=== PATIENT | male | born 1940 | race Caucasian/White ===

== ENCOUNTER 2016-07-07 13:31 | Emergency (ER) | payer MEDICARE, OTHER ==
[~2016-07-07] VITALS: Ht 193 cm; Wt 108.9 kg
[~2016-07-07 13:31] MED LIST: ACLI400A2 IH; ALBU2.5V5 NEB; ALPR0.25 PO; AMIO200T2 PO; AMLO5TAB2 PO; AMOX1TAB61 PO; ASPI81TA2 PO; ATOR10TA60 PO; BUDE10.2 IH; BUPR150T8 PO; CALC0.25 PO; CLOP75TA27 PO; FERR-26 PO; FLUT16SP2 NS; FORM12CA IH; FURO-68 PO; FURO-69 PO; FURO40TA4 PO; GABA-586 PO; IPRA0.2S5 NEB; IPRA3AMP IH; LEVO750T31 PO; LISI-338 PO; LISI2.5T PO; LORA10TA3 PO; LORA5SOL49 PO; METO-269 PO; METO50TA2 PO; METR500T PO; MULT-246 PO; Nicotine TD; OMEG300C PO; PRED-220 PO; RIVA10TA PO; TADA2.5T PO; TAMS0.4C2 PO; WARF5TAB7 PO; WARF7.5T PO; WARF7.5T6 PO
[2016-07-07] MEDS ORDERED: DIPHTH,PERTUSS(ACELL),TET TOX 0.5 ML DISP.SYRIN. VAX IM ONE (15:00)
[2016-07-07] MEDS ORDERED: LIDOCAINE 1% / SOD BICARB 8.4% 20 ML VIAL. IJ ONE (15:00)
--- NOTE | 2016-07-07 15:32 | RAD ---
PROCEDURE CT head without contrast CT maxillofacial without contrast dated 07/07/2016. HISTORY Pain after fall. TECHNIQUE Contiguous axial imaging of the head was performed from skull base to vertex. No contrast administered. In addition, imaging of the face was performed with coronal and sagittal reconstructions.Exposure: One or more of the following individualized dose reduction techniques were utilized for this exam: 1. Automated exposure control. 2. Adjustment of the mA and/or kV according to patient size. 3. Use of iterative reconstruction technique. COMPARISON None. FINDINGS Ventricles and sulci within normal limits for age. No midline shift or mass effect. Brain parenchyma is of normal attenuation. No hemorrhage or extra-axial collection. Posterior fossa and brainstem unremarkable. No acute calvarial abnormality. Images of the maxillofacial bones show small nondisplaced fracture of the left nasal bone with slight irregularity of the right nasal bone. No displaced fracture. Nasal septum is slightly deviated to the left. The orbital spencer and maxillary spencer are intact. Mandible is intact. Zygomatic arches are intact. Moderate mucosal thickening bilateral ethmoid air cells. Mild mucosal thickening bilateral maxillary sinus. Visualized paranasal sinuses and mastoid air cells are otherwise clear. No significant soft tissue abnormality. IMPRESSION HEAD - No evidence of acute intracranial hemorrhage or mass. IMPRESSION MAXILLOFACIAL: - Probable small nondisplaced fracture of the left nasal bone. - Otherwise no displaced facial fracture. - Mild maxillary and ethmoid sinus mucosal thickening. Electronically signed by: Channing Patel (Jul 07, 2016 15:29:44)
[2016-07-07] MEDS ORDERED: HYDR-971 PO (16:42)
[2016-07-07] MEDS ORDERED: CLIN-44 PO (16:42)
--- NOTE | 2016-07-07 16:43 | PHYS DOC ---
Past Medical History Past Medical History: A-Fib, CHF, COPD, Hypertension, Renal Disease Additional Past Medical Histor: SEASONAL ALLERGIES Past Surgical History: Pacemaker Additional Past Surgical Histo: metal in R. hand finger. 2 stents in left leg. perm pacer. Alcohol Use: None Drug Use: None Adult General Chief Complaint Chief Complaint: LACERATION/AVULSION HPI HPI Patient is a 75 year old male who presents with history of hypertension, COPD, kidney disease, who presents today with facial laceration. Patient states his knees gave out which is not unusual for him and he fell hitting his face on the ground. Patient denies any loss of consciousness. He states he takes Coumadin daily. 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 Review of Systems Review of Systems Constitutional: Denies fever or chills [] Eyes: Denies change in visual acuity, redness, or eye pain [] HENT: Denies nasal congestion or sore throat [] Respiratory: Denies cough or shortness of breath [] Cardiovascular: No additional information not addressed in HPI [] GI: Denies abdominal pain, nausea, vomiting, bloody stools or diarrhea [] : Denies dysuria or hematuria [] Musculoskeletal: Denies back pain or joint pain [] Integument: nose laceration Neurologic: Denies headache, focal weakness or sensory changes [] Endocrine: Denies polyuria or polydipsia [] Current Medications Current Medications Current Medications Medications (Trade) Dose Ordered Sig/Patricia Start Time Stop Time Status Last Admin Dose Admin Diphtheria/ Tetanus/Acell Pertussis (Boostrix) 0.5 ml ONCE ONCE 07/07/16 15:00 07/07/16 15:01 DC 07/07/16 15:22 0.5 ML Lidocaine/Sodium Bicarbonate (Buffered Lidocaine 1%) 20 ml 1X ONCE 07/07/16 15:00 07/07/16 15:01 DC 07/07/16 15:21 20 ML Allergies Allergies Allergies Coded Allergies Type Severity Reaction Last Updated Verified cephalexin Allergy Mild Nausea and Vomiting 10/08/15 Yes Physical Exam Physical Exam Constitutional: Well developed, well nourished, no acute distress, non-toxic appearance. [] HENT: Normocephalic, atraumatic, bilateral external ears normal, oropharynx moist, no oral exudates, nose normal. [] Eyes: PERRLA, EOMI, conjunctiva normal, no discharge. [] Neck: Normal range of motion, no tenderness, supple, no stridor. [] Cardiovascular:Heart rate regular rhythm, no murmur [] Lungs & Thorax: Bilateral breath sounds clear to auscultation [] Abdomen: Bowel sounds normal, soft, no tenderness, no masses, no pulsatile masses. [] Skin: Patient's nasal bridge appears deformed. There is a 4 cm laceration over the nasal bridge, scabbing over some part of the laceration. This is probably the site where the tumor was removed two weeks ago and sewn up that could have opened up when he fell. Back: No tenderness, no CVA tenderness. [] Extremities: No tenderness, no cyanosis, no clubbing, ROM intact, no edema. [] Neurologic: Alert and oriented X 3, normal motor function, normal sensory function, no focal deficits noted. [] Psychologic: Affect normal, judgement normal, mood normal. [] Current Patient Data Vital Signs Vital Signs Date Time Temp Pulse Resp B/P Pulse Ox O2 Delivery O2 Flow Rate FiO2 07/07/16 14:45 98.0 76 18 99/55 95 Room Air 98.0 EKG EKG [] Radiology/Procedures Radiology/Procedures Indication: Nose laceration Procedure: The patient was placed in the appropriate position and anesthesia around the laceration was 1% buffered lidocaine, the laceration was cleaned with the 100 ML of normal saline and Betadine. The laceration was closed with 7 interrupted sutures using 6. 0 Prolene. The wound was left open to air. Total repaired wound length: Approximately 4 cm long Other Items: none The patient tolerated the procedure well Complications: none Course & Med Decision Making Course & Med Decision Making Pertinent Labs and Imaging studies reviewed. (See chart for details) Patient fell down and has nose laceration which was closed as noted in procedures. CT of the head was negative for any acute findings. CT of the maxillofacial was has a for probable nondisplaced fractures of the left nasal bone. Patient was discharged on clindamycin for 10 days. He states he has a plastic surgeon and he is going to follow-up tomorrow morning. He was instructed to apply Neosporin to the area twice a day. His provided return precautions and discharged in stable condition. Discharged with [place] for pain, Given a copy of his CD to take home for the plastic surgeon. Manny Mccartneyimer Manny Disclaimer This electronic medical record was generated, in whole or in part, using a voice recognition dictation system. Departure Departure Impression: Primary Impression: Fall from standing Additional Impressions: Laceration of nose Nasal bone fracture Disposition: 01 HOME, SELF-CARE Condition: STABLE Referrals: CHAPARRO HILLIARD Jr, MD (PCP) Follow up with plastic surgeon as soon as you can Patient Instructions: Facial Laceration, Fall Prevention and Home Safety Additional Instructions: You were seen for nose laceration. Your CT shows you could've broken your left nasal bone as well. We closed the laceration with stitches. Follow-up with your own plastic surgeon as soon as possible. The stitches need to be removed in 3-5 days. Keep the area clean and dry. Apply antibiotic cream to the area. Complete your antibiotics. Come to the emergency room if symptoms worsen. Scripts Clindamycin Hcl 150 Mg Capsule3 Cap PO TID #90 CAP Prov:MAKENZIE COSBY APRN 07/07/16 Hydrocodone/Apap 5-325 ([place] 5-325 Tablet)1 Each Tablet1-2 Tab PO Q4-6HRS #14 TAB Prov:MAKENZIE COSBY APRN 07/07/16 Problem Qualifiers Primary Impression: Fall from standing Encounter type: initial encounter Qualified Code: W19.XXXA - Unspecified fall, initial encounter Additional Impressions: Laceration of nose Encounter type: initial encounter Qualified Code: S01.21XA - Laceration without foreign body of nose, initial encounter Nasal bone fracture Encounter type: initial encounter Fracture type: open Qualified Code: S02.2XXB - Fracture of nasal bones, initial encounter for open fracture MAKENZIE COBSY APRN Jul 07, 2016 16:43
[2016-07-07 16:56] VITALS: BP 109/66
== END 2016-07-07 16:57 | disposition home or self-care (01) ==
LOC: ER 13:31
DX: S02.2XXB Fracture of nasal bones, initial encounter for open fracture (principal); S01.21XA Laceration without foreign body of nose, initial encounter; I10 Essential (primary) hypertension; J44.9 Chronic obstructive pulmonary disease, unspecified; I13.0 Hypertensive heart and chronic kidney disease with heart failure and stage 1 through stage 4 chronic kidney disease, or unspecified chronic kidney disease; I50.9 Heart failure, unspecified; N18.9 Chronic kidney disease, unspecified; I48.91 Unspecified atrial fibrillation; Z88.1 Allergy status to other antibiotic agents; Z79.01 Long term (current) use of anticoagulants; W01.198A Fall on same level from slipping, tripping and stumbling with subsequent striking against other object, initial encounter; Y93.89 Activity, other specified; Y92.89 Other specified places as the place of occurrence of the external cause; Y99.8 Other external cause status
CPT/HCPCS: 12013; 70450; 70486; 90471; 90715; 99284-25

== ENCOUNTER → 2016-07-08 | Outpatient (CLI) | payer MEDICARE, OTHER ==
[2016-07-07 16:56] VITALS: BP 109/66
[~2016-07-08] MED LIST changes: +CLIN-44 PO; +HYDR-971 PO
[2016-07-08 13:10] LABS: HEMATOCRIT 32.3 % (39.0-53.0); HEMOGLOBIN 10.9 g/dL (13.0-17.5)
[2016-07-08 13:23] LABS: ALBUMIN 3.4 g/dL (3.4-5.0); CREATININE 3.1 mg/dL (0.7-1.3); GFR 19.8; PHOSPHORUS 3.5 mg/dL (2.6-4.7); POTASSIUM 5.1 mmol/L (3.5-5.1)
[2016-07-08 13:24] LABS: % SAT IRON 28 % (15-34); IRON,SERUM 74 ug/dL (65-175)
[2016-07-09 14:25] LABS: PTH INTACT 190 pg/mL (15-65)
== END | disposition home or self-care (01) ==
LOC: LAB 12:31
PROVIDERS: ATTEND Internal Medicine Nephrology
DX: N18.3 Chronic kidney disease, stage 3 (moderate) (principal); D63.1 Anemia in chronic kidney disease
CPT/HCPCS: 36415; 80069; 82043; 82570; 82728; 83540; 83550; 83735; 83970; 85014; 85018

== ENCOUNTER 2016-11-13 07:55 | Emergency (ER) | payer MEDICARE, OTHER ==
[~2016-11-13] VITALS: Ht 185.4 cm; Wt 104.3 kg
[~2016-11-13 07:55] MED LIST changes: -WARF7.5T PO; +WARF7.5T48 PO
[2016-11-13] MEDS ORDERED: IV NORMAL SALINE 1000ML BAG 1,000 ML IV ONE (08:15)
--- NOTE | 2016-11-13 08:26 | PHYS DOC ---
Past Medical History Past Medical History: A-Fib, CHF, COPD, Hypertension, Renal Disease Additional Past Medical Histor: SEASONAL ALLERGIES Past Surgical History: Pacemaker Additional Past Surgical Histo: metal in R. hand finger. 2 stents in left leg. perm pacer. Additional Information: quit smoking 2013 Alcohol Use: Rarely Drug Use: None Adult General Chief Complaint Chief Complaint: NAUSEA/VOMITING/DIARRHA HPI HPI Patient is a 76 year old male who presents with 6 days of nausea, vomiting or diarrhea. Patient states his stools are very loose, is having difficulty keeping food down, is tolerating water without difficulty. He states he has no appetite twice a day of eating makes him nauseous. He denies any known fevers, no recent antibiotics. He denies any associated pain or weakness. Patient has a history of chronic kidney disease, it had been improving but patient is concerned she is becoming dehydrated. He's also noted some lesions arms. They' re not pruritic and it popped over the last couple of days. He does take Coumadin. Denies primary care physician earlier this week who thought patient had a viral gastroenteritis versus food poisoning. He's not attempted any symptom controlling medications. ECP Dr. Arnie Hilliard, table saw operator Dr. Harper, machine cementer Dr. Harvey, office secretary Dr. Virk Review of Systems Review of Systems Constitutional: Denies fever or chills [] Eyes: Denies change in visual acuity, redness, or eye pain [] HENT: Denies nasal congestion or sore throat [] Respiratory: Denies cough or shortness of breath [] Cardiovascular: denies cp GI: per hpi : Denies dysuria or hematuria [] Musculoskeletal: Denies back pain or joint pain [] Integument: Denies rash or skin lesions [] Neurologic: Denies headache, focal weakness or sensory changes [] Endocrine: Denies polyuria or polydipsia [ Current Medications Current Medications Current Medications Medications (Trade) Dose Ordered Sig/Patricia Start Time Stop Time Status Last Admin Dose Admin Ondansetron HCl (Zofran) 4 mg 1X ONCE 11/13/16 08:30 11/13/16 08:32 DC 11/13/16 08:42 4 MG Phytonadione (Mephyton) 5 mg 1X ONCE 11/13/16 11:15 11/13/16 11:16 DC 11/13/16 11:23 5 MG Sodium Chloride 1,000 ml @ 1,000 mls/hr 1X ONCE 11/13/16 08:15 11/13/16 09:14 DC 11/13/16 08:28 1,000 MLS/HR Allergies Allergies Allergies Coded Allergies Type Severity Reaction Last Updated Verified cephalexin Allergy Mild Nausea and Vomiting 10/08/15 Yes Physical Exam Physical Exam Constitutional: Well developed, well nourished, no acute distress, non-toxic appearance. [] HENT: Normocephalic, atraumatic, bilateral external ears normal, oropharynx slightly dry, no oral exudates, nose normal. [] Eyes: PERRLA, EOMI, conjunctiva normal, no discharge. [] Neck: Normal range of motion, no tenderness, supple, no stridor. [] Cardiovascular:Heart rate regular rhythm, no murmur [] Lungs & Thorax: Bilateral breath sounds clear to auscultation [] Abdomen: Bowel sounds normal, soft, no tenderness, no masses, no pulsatile masses. [] Skin: Warm, dry, nonblanching circular erythematous lesions on bilateral proximal forearms, various sizes, maccular, 1 area with a central opening where scabbed over. nontender, not involving palms or soles. Back: No tenderness, no CVA tenderness. [] Extremities: No tenderness, no cyanosis, no clubbing, ROM intact, no edema. [] Neurologic: Alert and oriented X 3, normal motor function, normal sensory function, no focal deficits noted. [] Current Patient Data Vital Signs Vital Signs Date Time Temp Pulse Resp B/P (MAP) Pulse Ox O2 Delivery O2 Flow Rate FiO2 11/13/16 11:20 68 20 120/60 (80) 95 Room Air 11/13/16 08:46 2.0 11/13/16 08:00 97.6 97.6 Lab Values Laboratory Tests Test 11/13/16 08:10 11/13/16 08:46 11/13/16 09:33 White Blood Count 7.2 x10^3/uL (4.0-11.0) Red Blood Count 3.68 x10^6/uL (4.30-5.70) L Hemoglobin 11.6 g/dL (13.0-17.5) L Hematocrit 34.6 % (39.0-53.0) L Mean Corpuscular Volume 94 fL (79-100) Mean Corpuscular Hemoglobin 32 pg (25-35) Mean Corpuscular Hemoglobin Concent 34 g/dL (31-37) Red Cell Distribution Width 14.4 % (11.5-14.5) Platelet Count 138 x10^3/uL (140-400) L Neutrophils (%) (Auto) 69 % (31-73) Lymphocytes (%) (Auto) 18 % (24-48) L Monocytes (%) (Auto) 11 % (0-9) H Eosinophils (%) (Auto) 1 % (0-3) Basophils (%) (Auto) 1 % (0-3) Neutrophils # (Auto) 5.0 x10^3uL (1.8-7.7) Lymphocytes # (Auto) 1.3 x10^3/uL (1.0-4.8) Monocytes # (Auto) 0.8 x10^3/uL (0.0-1.1) Eosinophils # (Auto) 0.1 x10^3/uL (0.0-0.7) Basophils # (Auto) 0.1 x10^3/uL (0.0-0.2) Prothrombin Time 69.1 SEC (11.7-14.0) H Prothrombin Time INR 9.1 (0.8-1.1) *H Total Bilirubin 0.5 mg/dL (0.2-1.0) Direct Bilirubin 0.1 mg/dL (0.0-0.2) Aspartate Amino Transferase (AST) 25 U/L (15-37) Alanine Aminotransferase (ALT) 32 U/L (16-63) Alkaline Phosphatase 75 U/L (46-116) Total Protein 7.0 g/dL (6.4-8.2) Albumin 3.4 g/dL (3.4-5.0) POC Hemoglobin 11.9 g/dL (14-18) L POC Hematocrit 35 % (37-52) L POC Sodium 139 mmol/L (135-145) POC Potassium 5.0 mmol/L (3.5-5.0) POC Chloride 110 mmol/L (98-110) POC Total CO2 18 mmol/L (23-32) L Anion Gap 17 mmol/L (6-14) H POC Blood Urea Nitrogen 41 mg/dL (8-26) H POC Creatinine 2.9 mg/dL (0.5-1.4) H Glucose Level 105 mg/dL (70-99) H POC Ionized Calcium (Glenn) 1.45 mmol/L (1.13-1.32) H Urine Collection Type Void Urine Color Yellow Urine Clarity Clear Urine pH 5.0 Urine Specific [place] 1.010 Urine Protein Negative mg/dL (NEG-TRACE) Urine Glucose (UA) Negative mg/dL (NEG) Urine Ketones (Stick) Negative mg/dL (NEG) Urine Blood Negative (NEG) Urine Nitrite Negative (NEG) Urine Bilirubin Negative (NEG) Urine Urobilinogen Dipstick 0.2 mg/dL (0.2 mg/dL) Urine Leukocyte Esterase Negative (NEG) Urine RBC 0 /HPF (0-2) Urine WBC 0 /HPF (0-4) Urine Squamous Epithelial Cells Occ /LPF Urine Bacteria 0 /HPF (0-FEW) Urine Hyaline Casts Few /HPF Urine Mucus Slight /LPF Laboratory Tests 11/13/16 08:10 Laboratory Tests 11/13/16 08:46 EKG EKG 77 bpm, sinus, leftward axis, normal intervals, no ST elevation, ST depression with T-wave inversions in V3 through V6, improved from previous EKG on May 24, 2016. Interpreted by me Radiology/Procedures Radiology/Procedures [] CT abdomen and pelvis read by radiology showed mild dilatated and the small and large bowel loops without transition, questionable ileus, obstruction less likely. There is cholelithiasis. Sigmoid diverticulosis without inflammation. This was a handwritten read when infant was down. Course & Med Decision Making Course & Med Decision Making Pertinent Labs and Imaging studies reviewed. (See chart for details) Labs ordered, EKG performed. IV established an IV fluids given. Patient feeling better after IV fluids. He also received Zofran. I found at that the patient actually tolerated his breakfast this morning without vomiting. Patient is preferring to go home. His INR came back 9+, 5 mg by mouth vitamin K was given, I talked with patient's PCP Dr. Hilliard. He is agreeable with the patient to go home and will follow up on his INR on Thursday, patient is not to take his Coumadin. Precautions given, discharged with prescription for Zofran. Manny Disclaimer Dragon Disclaimer This electronic medical record was generated, in whole or in part, using a voice recognition dictation system. Departure Departure Impression: Primary Impression: Viral gastroenteritis Additional Impression: Supratherapeutic INR Disposition: HOME, SELF-CARE Condition: STABLE Referrals: CHAPARRO HILLIARD Jr, MD (PCP) Scripts Ondansetron (ZOFRAN ODT) 4 Mg Tab.rapdis 1 TAB SL Q8HRS Y for NAUSEA, #10 TAB Prov: JANUARY MARIE MD 11/13/16 Problem Qualifiers JANUARY MARIE MD November 13, 2016 08:26
[2016-11-13] MEDS ORDERED: ONDANSETRON PF 4 MG/2 ML VIAL. IV ONE (08:30)
[2016-11-13 08:53] LABS: ALBUMIN 3.4 g/dL (3.4-5.0); DIRECT BILIRUBIN 0.1 mg/dL (0.0-0.2); PROTHROMBIN TIME PATIENT 69.1 SEC (11.7-14.0); TOTAL BILIRUBIN 0.5 mg/dL (0.2-1.0)
--- NOTE | 2016-11-13 08:56 | ACF ---
Admission Forms Criteria VOMITING Clinical Indications for Admission to Inpatient Care ( Place 'X' for any and all applicable criteria): Admission is indicated for 1 or more of the following(1)(2)(3): [ ]I. Complete or partial gastrointestinal obstruction [ ]II. Vomiting due to significant metabolic derangement (eg, severe hypercalcemia, diabetic ketoacidosis) [ ]III. Other cause of vomiting requiring hospitalization (eg, poisoning, increased intracranial pressure) [X]IV. Inpatient admission required rather than observation care because of 1 or more of the following [ ]i) Hemodynamic instability [ ]ii) Vomiting that is severe or persistent indicated by 1 or more of the following 1) Numerous episodes of vomiting in past 24hours (eg, every 1 to 2 hours) 2) Suggests severe underlying cause or complication (eg , projectile, feculent, bilious, coffee ground, bloody) 3) Appropriate antiemetic treatment (eg, repeated oral or parenteral dosing) does not sufficiently reduce vomiting within 12 to 24 hours of treatment 4) Treatment regimen necessary to adequately control vomiting requires inpatient level of care (eg, not immediately available in outpatient setting) [ ]iii) Severe electrolyte abnormalities requiring inpatient care [ ]iv) Severe pain requiring acute inpatient management( Continuous or frequent (eg, every 2 to 4 hours) parental analgesics or analgesic regimen that can only be performed or initiated in inpatient setting) [ ]v) High fever or infection requiring inpatient admission as indicated by 1 or more of the following(7)(8): [ ]1) Appropriate outpatient or observation care antimicrobial treatment unavailable, not effective, or not feasible [ ]2) Documented bacteremia [ ]3) Temp >104.9 degrees F (40.5 degrees C) (oral) [ ]4) Temp >103.1 degrees F (39.5 C) (oral) or <96.8 degrees F (36 C) (rectal) that does not respond to all emergency treatment measures [X]vi) Acute renal failure [ ]vii) IV fluid required rather than oral rehydration to replace significant on going losses (greater than 3 L/m2 per day) [ ]viii) Parenteral nutrition regimen that must be implemented on inpatient basis [ ]ix) Other condition, treatment or monitoring requiring inpatient admission Extended stay beyond goal length of stay may be needed for(1)(4): [ ]a) Severe vomiting [ ]b) Persistent vomiting, vital sign changes, severe electrolyte imbalance , or diagnosed cause of vomiting that requires continued hospitalization (eg, gastrointestinal obstruction , increased intracranial pressure) [ ]c) Surgery to treat identified causes of vomiting (eg, bowel obstruction , intracranial process) [ ]d) Comorbid illness that requires inpatient care (eg, acute heart failure , renal failure) [ ]e) Need for inpatient endoscopy The original [facility] content created by [employer] has been revised. The portions of the content which have been revised are identified through the use of italic text or in bold, and [facility] has neither reviewed nor approved the modified material. All other unmodified content is copyright [employer]. Please see references footnoted in the original [facility] edition 2016 Admission Criteria Met?: Yes AMILCAR DARBY November 13, 2016 08:56
[2016-11-13] MEDS ORDERED: FURO20TA3 PO (08:57)
[2016-11-13] MEDS ORDERED: VITA150T PO (08:57)
[2016-11-13] MEDS ORDERED: CHOL2000 PO (08:57)
[2016-11-13] MEDS ORDERED: METO25TA9 PO (08:57)
[2016-11-13] MEDS ORDERED: ASCO500T3 PO (08:57)
[2016-11-13 09:03] LABS: BASO # 0.1 x10^3/uL (0.0-0.2); BASO % 1 % (0-3); EOS % 1 % (0-3); HEMATOCRIT 34.6 % (39.0-53.0); HEMOGLOBIN 11.6 g/dL (13.0-17.5); LYMPH # 1.3 x10^3/uL (1.0-4.8); LYMPH % 18 % (24-48); MEAN CORPUSCULAR HEMOGLOBIN 32 pg (25-35); MEAN CORPUSCULAR HGB CONC 34 g/dL (31-37); MEAN CORPUSCULAR VOLUME 94 fL (79-100); MONO % 11 % (0-9); NEUT % 69 % (31-73); PLATELET COUNT 138 x10^3/uL (140-400); RED BLOOD COUNT 3.68 x10^6/uL (4.30-5.70); RED CELL DISTRIBUTION WIDTH 14.4 % (11.5-14.5); WHITE BLOOD COUNT 7.2 x10^3/uL (4.0-11.0)
[2016-11-13 09:26] LABS: INR 9.1 (0.8-1.1)
[2016-11-13 10:06] LABS: BILIRUBIN,URINE NEGATIVE (NEG); GLUCOSE,URINE NEGATIVE (NEG); NITRITE,URINE NEGATIVE (NEG); PROTEIN,URINE NEGATIVE (NEG-TRACE); UROBILINOGEN,URINE 0.2 mg/dL (0.2 mg/dL)
--- NOTE | 2016-11-13 10:21 | EKG ---
[facility] [address] [place] [address] Test Date: 2016-11-13 Test Time: 08:18:29 Pat Name: JOSEP SIMS Department: Room: Gender: M Master Ship: : 1940 Requested By: JANUARY MARIE Order Number: [id number] Reading MD: Isac Muniz Measurements Intervals [place] Rate: 77 P: -61 MS: 158 QRS: -39 QRSD: 108 T: -41 QT: 378 QTc: 430 Interpretive Statements SINUS RHYTHM ABNORMAL LEFT AXIS DEVIATION LEFT ANTERIOR FASCICULAR BLOCK LVH WITH REPOLARIZATION ABNORMALITY Electronically Signed On 11-17-2016 9:30:17 CDT by Isac Muniz
[2016-11-13 10:38] LABS: BACTERIA,URINE 0 /HPF (0-FEW); RBC,URINE 0 /HPF (0-2); SQUAMOUS EPITHELIAL CELL,UR OCC /LPF; WBC,URINE 0 /HPF (0-4)
[2016-11-13] MEDS ORDERED: PHYTONADIONE (VIT K1) 5 MG TABLET PO ONE (11:15)
[2016-11-13] MEDS ORDERED: ONDA4TAB10 SL (11:19)
[2016-11-13 11:20] VITALS: BP 120/60
--- NOTE | 2016-11-13 13:11 | RAD ---
Gerardo Quintero, 11/13/16. Exam performed: CT abdomen pelvis without contrast. History: Weakness, vomiting and weight loss. Date of service: 11/13/16. Comparison: CT abdomen pelvis from 10/07/15. Technique: Contiguous helical acquisitions are obtained through the abdomen and pelvis without IV contrast. Sagittal and coronal reformatted images are obtained and reviewed. Findings: Cholelithiasis. Mild gaseous prominence of small bowel loops and colon up to the rectum. No definite transition is seen. Visualized appendix is normal. No inflammatory changes in the right lower quadrant. Lung bases are essentially clear. Linear scarring in the anterior left lung base. Trace bilateral effusions or pleural thickening. Lack of IV contrast limits evaluation of abdominal viscera, however the liver, spleen and pancreas appear normal. Both adrenal glands and bilateral kidneys are normal in size. Right parapelvic cyst versus extrarenal pelvis. No hydronephrosis. Left renal cyst. Atheromatous aortic calcification without aneurysm. No retroperitoneal or mesenteric lymphadenopathy seen. No free fluid. Urinary bladder is partially decompressed. Prostatomegaly. Sigmoid diverticulosis without acute diverticulitis. No free or focal fluid collections. Interrogation of bone windows demonstrates mild spondylotic changes. Degenerative disc disease at T12-L1 and L5-S1. Impression: 1. Mild predominantly gaseous dilation of the small and large bowel loops without a definite transition zone. The findings are probably related to ileus pattern. Bowel obstruction is considered less likely, however close clinical and radiographic follow-up exams may be obtained to ensure interval resolution. 2. Cholelithiasis. 3. Sigmoid diverticulosis without acute diverticulitis. 4. Ectatic atheromatous abdominal aorta without aneurysm. PQRS Compliance Statement: One or more of the following individualized dose reduction techniques were utilized for this examination: 1. Automated exposure control 2. Adjustment of the mA and/or kV according to patient size 3. Use of iterative reconstruction technique [employer]
== END 2016-11-13 11:50 | disposition home or self-care (01) ==
LOC: ER 07:55
DX: A08.4 Viral intestinal infection, unspecified (principal); R79.1 Abnormal coagulation profile; I13.0 Hypertensive heart and chronic kidney disease with heart failure and stage 1 through stage 4 chronic kidney disease, or unspecified chronic kidney disease; I50.9 Heart failure, unspecified; N18.9 Chronic kidney disease, unspecified; J44.9 Chronic obstructive pulmonary disease, unspecified; I48.91 Unspecified atrial fibrillation; Z95.0 Presence of cardiac pacemaker; Z87.891 Personal history of nicotine dependence; Z88.1 Allergy status to other antibiotic agents
CPT/HCPCS: 36415; 74176; 80047; 80076; 81001; 85027; 85610; 93005; 96361; 96374; 99285; J2405; J7030

== ENCOUNTER 2017-08-12 16:26 | Emergency (ER) | payer MEDICARE, OTHER ==
[2017-08-12 17:36] LABS: BASO # 0.1 x10^3/uL (0.0-0.2); BASO % 1 % (0-3); EOS % 1 % (0-3); HEMATOCRIT 36.3 % (39.0-53.0); HEMOGLOBIN 11.8 g/dL (13.0-17.5); LYMPH # 0.9 x10^3/uL (1.0-4.8); LYMPH % 14 % (24-48); MEAN CORPUSCULAR HEMOGLOBIN 31 pg (25-35); MEAN CORPUSCULAR HGB CONC 33 g/dL (31-37); MEAN CORPUSCULAR VOLUME 95 fL (79-100); MONO # 1.4 x10^3/uL (0.0-1.1); MONO % 23 % (0-9); NEUT # 3.6 x10^3uL (1.8-7.7); NEUT % 61 % (31-73); PLATELET COUNT 103 x10^3/uL (140-400); RED CELL DISTRIBUTION WIDTH 14.7 % (11.5-14.5); WHITE BLOOD COUNT 5.9 x10^3/uL (4.0-11.0)
[2017-08-12 17:45] LABS: INR 2.2 (0.8-1.1); PROTHROMBIN TIME PATIENT 22.9 SEC (11.7-14.0)
[2017-08-12 17:47] LABS: ANION GAP 7 (6-14); BLOOD UREA NITROGEN 34 mg/dL (8-26); BUN/CREATININE RATIO 15 (6-20); CALCIUM 10.2 mg/dL (8.5-10.1); CARBON DIOXIDE 28 mmol/L (21-32); CHLORIDE 104 mmol/L (98-107); CREATININE 2.3 mg/dL (0.7-1.3); GFR 27.9; GLUCOSE 128 mg/dL (70-99); POTASSIUM 4.5 mmol/L (3.5-5.1); SODIUM 139 mmol/L (136-145)
[2017-08-12 17:50] LABS: ADD MAN DIFF? YES
[2017-08-12 17:52] LABS: ALBUMIN 3.2 g/dL (3.4-5.0); ALBUMIN/GLOBULIN RATIO 0.9 (1.0-1.7); ALK PHOS 70 U/L (46-116); ALT (SGPT) 33 U/L (16-63); AST (SGOT) 30 U/L (15-37); LIPASE 127 U/L (73-393); TOTAL PROTEIN 6.6 g/dL (6.4-8.2)
[2017-08-12 17:56] LABS: % BANDS 2 % (0-9); % EOS 2 % (0-5); % LYMPHS 16 % (24-48); % MONOS 20 % (0-10); % SEGS 60 % (35-66)
[2017-08-12 17:59] LABS: PLT ESTIMATE DECREASED (ADEQUATE); POLYCHROMASIA SLIGHT
[2017-08-12 18:00] LABS: NT-PRO BNP 2980 pg/mL (0-449); TROPONINI 0.246 ng/mL (0.000-0.055)
[2017-08-12 18:00] LABS: CKMB MASS 1.4 ng/mL (0.0-3.6)
[2017-08-12 18:01] LABS: CREATINE KINASE 62 U/L (39-308)
== END 2017-08-12 19:24 | disposition home or self-care (01) ==
LOC: ER 16:26
DX: R14.0 Abdominal distension (gaseous) (principal); R11.0 Nausea; J44.9 Chronic obstructive pulmonary disease, unspecified; I48.91 Unspecified atrial fibrillation; I13.0 Hypertensive heart and chronic kidney disease with heart failure and stage 1 through stage 4 chronic kidney disease, or unspecified chronic kidney disease; N18.9 Chronic kidney disease, unspecified; I50.9 Heart failure, unspecified; Z95.0 Presence of cardiac pacemaker; Z88.1 Allergy status to other antibiotic agents
CPT/HCPCS: 36415; 71045; 80053; 82553; 83690; 83880; 84484; 85007; 85025; 85610; 93005; 99285-25

== ENCOUNTER → 2017-12-02 | Outpatient (CLI) | payer MEDICARE, OTHER | END | disposition home or self-care (01) | LOC: NM 09:50 | DX: E83.52 Hypercalcemia (principal); I13.0 Hypertensive heart and chronic kidney disease with heart failure and stage 1 through stage 4 chronic kidney disease, or unspecified chronic kidney disease; I50.22 Chronic systolic (congestive) heart failure; N18.4 Chronic kidney disease, stage 4 (severe) | CPT/HCPCS: 78070; 96374; A9500 ==

== ENCOUNTER 2017-12-04 11:12 | Inpatient (IN) | payer MEDICARE, OTHER ==
[2017-12-04] MEDS: MORPHINE SULFATE 4 MG/ML DISP.SYRIN. IV (11:43)
[2017-12-04] MEDS: IOHEXOL 300 MG/ML 100ML VIAL. IV (11:45)
[2017-12-04] MEDS ORDERED: CONTRAST GIVEN. MC (12:00)
[2017-12-04] MEDS: ONDANSETRON PF 4 MG/2 ML VIAL. IV (12:04)
[2017-12-04] MEDS: PANTOPRAZOLE IV PUSH 40 MG VIAL. IVP (12:13)
[2017-12-04] MEDS: DICYCLOMINE HCL 10 MG CAPSULE PO (12:15)
[2017-12-04 12:27] LABS: BASO % 0 % (0-3); EOS % 0 % (0-3); HEMATOCRIT 34.3 % (39.0-53.0); HEMOGLOBIN 11.3 g/dL (13.0-17.5); LYMPH # 0.4 x10^3/uL (1.0-4.8); LYMPH % 6 % (24-48); MEAN CORPUSCULAR HEMOGLOBIN 32 pg (25-35); MEAN CORPUSCULAR HGB CONC 33 g/dL (31-37); MEAN CORPUSCULAR VOLUME 96 fL (79-100); MONO # 0.1 x10^3/uL (0.0-1.1); MONO % 2 % (0-9); NEUT # 5.9 x10^3uL (1.8-7.7); NEUT % 92 % (31-73); PLATELET COUNT 128 x10^3/uL (140-400); RED BLOOD COUNT 3.57 x10^6/uL (4.30-5.70); RED CELL DISTRIBUTION WIDTH 14.7 % (11.5-14.5); WHITE BLOOD COUNT 6.4 x10^3/uL (4.0-11.0)
[2017-12-04 12:29] LABS: ADD MAN DIFF? YES
[2017-12-04 12:32] LABS: INR 3.5 (0.8-1.1)
[2017-12-04 12:33] LABS: ANION GAP 7 (6-14); BLOOD UREA NITROGEN 33 mg/dL (8-26); BUN/CREATININE RATIO 17 (6-20); CALCIUM 9.8 mg/dL (8.5-10.1); CARBON DIOXIDE 27 mmol/L (21-32); CHLORIDE 107 mmol/L (98-107); CREATININE 1.9 mg/dL (0.7-1.3); GFR 34.6; GLUCOSE 147 mg/dL (70-99); SODIUM 141 mmol/L (136-145)
[2017-12-04] MEDS: IPRATRPIUM/ALBUTEROL 0.5/2.5MG 3 ML NEBU. NEB (12:36)
[2017-12-04 12:38] LABS: ALBUMIN 3.5 g/dL (3.4-5.0); ALBUMIN/GLOBULIN RATIO 1.2 (1.0-1.7); ALK PHOS 157 U/L (46-116); ALT (SGPT) 168 U/L (16-63); AST (SGOT) 277 U/L (15-37); LIPASE 131 U/L (73-393); MAGNESIUM 1.2 mg/dL (1.8-2.4); TOTAL BILIRUBIN 1.5 mg/dL (0.2-1.0); TOTAL PROTEIN 6.4 g/dL (6.4-8.2)
[2017-12-04 12:46] LABS: POTASSIUM 5.4 mmol/L (3.5-5.1)
[2017-12-04 12:49] LABS: NT-PRO BNP 2883 pg/mL (0-449); TROPONINI 0.099 ng/mL (0.000-0.055)
[2017-12-04 12:49] LABS: CKMB INDEX 2.4 % (0-4); CKMB MASS 3.1 ng/mL (0.0-3.6); CREATINE KINASE 127 U/L (39-308)
[2017-12-04 13:21] LABS: % ATYL 1 % (0-0); % BANDS 8 % (0-9); % LYMPHS 8 % (24-48); % MONOS 1 % (0-10); % SEGS 82 % (35-66)
[2017-12-04 13:22] LABS: PLT ESTIMATE DECREASED (ADEQUATE)
[2017-12-04] MEDS ORDERED: levOFLOXacin PER PHARMACY. MC (13:45)
[2017-12-04] MEDS ORDERED: MORPHINE SULFATE 4 MG/ML DISP.SYRIN. IV (13:45)
[2017-12-04 13:52] LABS: PROCALCITONIN 0.11 ng/mL (0.00-0.10)
[2017-12-04] MEDS: IV NORMAL SALINE 1000ML BAG 1,000 ML IV (14:16)
[2017-12-04] MEDS: CALCIUM GLUCONATE 1,000 MG in IV NORMAL SALINE 100ML 100 ML IV (14:21)
[2017-12-04 14:26] LABS: BILIRUBIN,URINE NEGATIVE (NEG); CLARITY,URINE CLEAR; COLOR,URINE YELLOW; GLUCOSE,URINE NEGATIVE (NEG); NITRITE,URINE NEGATIVE (NEG); PH,URINE 5.5; PROTEIN,URINE NEGATIVE (NEG-TRACE)
[2017-12-04 14:36] LABS: BARBITURATES NEG (NEG); BENZODIAZEPINES POS (NEG); CANNABINOIDS NEG (NEG); COCAINE NEG (NEG); METHADONE NEG (NEG); OPIATES POS (NEG); PHENCYCLIDINE NEG (NEG)
[2017-12-04 14:42] LABS: BACTERIA,URINE 0 /HPF (0-FEW); HYALINE CASTS, URINE FEW /HPF; RBC,URINE 0 /HPF (0-2); WBC,URINE 0 /HPF (0-4)
[2017-12-04 14:44] LABS: AMPHETAMINE/METHAMPHETAMINE NEG (NEG); ETHANOL, URINE NEG (NEG)
[2017-12-04 15:47] LABS: LACTIC ACID 1.3 mmol/L (0.4-2.0)
[2017-12-05 02:15] LABS: TROPONINI 0.099 ng/mL (0.000-0.055)
[2017-12-05] MEDS: IV NORMAL SALINE 1000ML BAG 1,000 ML IV ×4 (03:50→23:00)
[2017-12-05 04:58] LABS: ADD MAN DIFF? NO
[2017-12-05 05:18] LABS: BASO % 0 % (0-3); EOS % 0 % (0-3); HEMATOCRIT 29.7 % (39.0-53.0); HEMOGLOBIN 9.7 g/dL (13.0-17.5); LYMPH # 0.4 x10^3/uL (1.0-4.8); LYMPH % 2 % (24-48); MEAN CORPUSCULAR HEMOGLOBIN 32 pg (25-35); MEAN CORPUSCULAR HGB CONC 33 g/dL (31-37); MEAN CORPUSCULAR VOLUME 97 fL (79-100); MONO # 1.2 x10^3/uL (0.0-1.1); MONO % 6 % (0-9); NEUT % 92 % (31-73); PLATELET COUNT 107 x10^3/uL (140-400); RED BLOOD COUNT 3.06 x10^6/uL (4.30-5.70); RED CELL DISTRIBUTION WIDTH 14.8 % (11.5-14.5); WHITE BLOOD COUNT 19.6 x10^3/uL (4.0-11.0)
[2017-12-05 05:28] LABS: ANION GAP 4 (6-14); BLOOD UREA NITROGEN 38 mg/dL (8-26); CALCIUM 9.4 mg/dL (8.5-10.1); CARBON DIOXIDE 28 mmol/L (21-32); CHLORIDE 108 mmol/L (98-107); CREATININE 2.1 mg/dL (0.7-1.3); GFR 30.9; GLUCOSE 100 mg/dL (70-99); POTASSIUM 5.7 mmol/L (3.5-5.1); SODIUM 140 mmol/L (136-145)
[2017-12-05 06:59] LABS: TROPONINI 0.093 ng/mL (0.000-0.055)
[2017-12-05] MEDS: IPRATRPIUM/ALBUTEROL 0.5/2.5MG 3 ML NEBU. NEB ×4 (09:05→19:46)
[2017-12-05 11:40] LABS: INR 4.1 (0.8-1.1); PROTHROMBIN TIME PATIENT 38.8 SEC (11.7-14.0)
[2017-12-05] MEDS: AMIODARONE HCL 200 MG TABLET. PO (11:41)
[2017-12-05] MEDS: FLUTICASONE 50MCG/NASAL SPRAY 16GM BOTTLE. NS ×2 (11:42→21:40)
[2017-12-05] MEDS: SODIUM POLYSTYRENE SULFONATE 15 GM/60 ML ORAL.SUSP. PO (14:00)
[2017-12-05] MEDS: VANCOMYCIN 2 GM in IV 1/2 NORMAL SALINE 500 ML IV (17:00)
[2017-12-05] MEDS: PIPERACILLIN/TAZOBACTAM 3.375 GM in IV NORMAL SALINE 50ML 50 ML IV (17:00)
[2017-12-05 17:29] LABS: ANION GAP 5 (6-14); BLOOD UREA NITROGEN 41 mg/dL (8-26); CALCIUM 10.1 mg/dL (8.5-10.1); CARBON DIOXIDE 27 mmol/L (21-32); CHLORIDE 108 mmol/L (98-107); CREATININE 1.9 mg/dL (0.7-1.3); GFR 34.6; GLUCOSE 113 mg/dL (70-99); POTASSIUM 4.6 mmol/L (3.5-5.1); SODIUM 140 mmol/L (136-145)
[2017-12-05] MEDS: VANCOMYCIN PER PHARMACY MC (17:45)
[2017-12-05] MEDS: METOPROLOL SUCC 24HR ER 25 MG TAB.ER.24H. PO (18:00)
[2017-12-05] MEDS ORDERED: PIP/TAZO PER PHARMACY MC (21:00)
[2017-12-05] MEDS: LACTOBACILLUS RHAMNOSUS GG 1 CAPSULE. PO (21:39)
[2017-12-05] MEDS: ATORVASTATIN CALCIUM 10 MG TABLET. PO (21:40)
[2017-12-05] MEDS: TAMSULOSIN 0.4 MG CAP.ER.24H. PO (21:40)
[2017-12-05] MEDS: ALPRAZolam 1 MG TABLET PO (23:03)
[2017-12-06] MEDS: PIPERACILLIN/TAZOBACTAM 3.375 GM in IV NORMAL SALINE 50ML 50 ML IV ×4 (00:34→17:40)
[2017-12-06 04:53] LABS: ADD MAN DIFF? NO
[2017-12-06 05:15] LABS: BASO % 0 % (0-3); EOS # 0.1 x10^3/uL (0.0-0.7); EOS % 1 % (0-3); HEMATOCRIT 29.6 % (39.0-53.0); LYMPH # 0.4 x10^3/uL (1.0-4.8); LYMPH % 5 % (24-48); MEAN CORPUSCULAR HEMOGLOBIN 33 pg (25-35); MEAN CORPUSCULAR HGB CONC 34 g/dL (31-37); MEAN CORPUSCULAR VOLUME 97 fL (79-100); MONO # 0.9 x10^3/uL (0.0-1.1); MONO % 10 % (0-9); NEUT # 7.8 x10^3uL (1.8-7.7); NEUT % 85 % (31-73); PLATELET COUNT 86 x10^3/uL (140-400); RED BLOOD COUNT 3.05 x10^6/uL (4.30-5.70); RED CELL DISTRIBUTION WIDTH 15.1 % (11.5-14.5); WHITE BLOOD COUNT 9.2 x10^3/uL (4.0-11.0)
[2017-12-06 05:42] LABS: PROTHROMBIN TIME PATIENT 48.2 SEC (11.7-14.0)
[2017-12-06 05:47] LABS: INR 5.4 (0.8-1.1)
[2017-12-06 07:11] LABS: ANION GAP 9 (6-14); BLOOD UREA NITROGEN 36 mg/dL (8-26); CALCIUM 9.3 mg/dL (8.5-10.1); CARBON DIOXIDE 23 mmol/L (21-32); CHLORIDE 108 mmol/L (98-107); CREATININE 1.8 mg/dL (0.7-1.3); GFR 36.9; GLUCOSE 101 mg/dL (70-99); POTASSIUM 4.3 mmol/L (3.5-5.1); SODIUM 140 mmol/L (136-145)
[2017-12-06] MEDS: IPRATRPIUM/ALBUTEROL 0.5/2.5MG 3 ML NEBU. NEB ×4 (07:37→19:56)
[2017-12-06] MEDS: FLUTICASONE 50MCG/NASAL SPRAY 16GM BOTTLE. NS ×2 (08:18→21:37)
[2017-12-06] MEDS: PHYTONADIONE 10 MG/ML ORAL SOLUTION. PO (08:18)
[2017-12-06] MEDS: ALPRAZolam 1 MG TABLET PO ×2 (08:19→21:37)
[2017-12-06] MEDS: LACTOBACILLUS RHAMNOSUS GG 1 CAPSULE. PO ×2 (08:19→21:37)
[2017-12-06] MEDS: AMIODARONE HCL 200 MG TABLET. PO (08:20)
[2017-12-06] MEDS: PHYTONADIONE 10 MG/ML AMPUL. SQ (13:05)
[2017-12-06] MEDS: VANCOMYCIN PER PHARMACY MC (13:36)
[2017-12-06 13:50] LABS: INR 3.2 (0.8-1.1); PROTHROMBIN TIME PATIENT 32.2 SEC (11.7-14.0)
[2017-12-06] MEDS: IV NORMAL SALINE 1000ML BAG 1,000 ML IV ×2 (13:50→21:36)
[2017-12-06] MEDS ORDERED: amLODIPine BESYLATE 5 MG TABLET PO (17:00)
[2017-12-06] MEDS: METOPROLOL SUCC 24HR ER 25 MG TAB.ER.24H. PO (17:35)
[2017-12-06] MEDS: hydrALAZINE 20 MG/ML VIAL. IVP ×2 (17:36→21:38)
[2017-12-06] MEDS: VANCOMYCIN 1.5 GM in IV 1/2 NORMAL SALINE 500 ML IV (17:40)
[2017-12-06] MEDS: CETIRIZINE HCL 10 MG TABLET. PO (21:37)
[2017-12-06] MEDS: ATORVASTATIN CALCIUM 10 MG TABLET. PO (21:37)
[2017-12-06] MEDS: TAMSULOSIN 0.4 MG CAP.ER.24H. PO (21:37)
[2017-12-07] MEDS: PIPERACILLIN/TAZOBACTAM 3.375 GM in IV NORMAL SALINE 50ML 50 ML IV ×4 (02:00→19:45)
[2017-12-07] MEDS: ALBUTEROL SULFATE 2.5 MG/3 ML NEBU. NEB (02:12)
[2017-12-07 04:46] LABS: BILIRUBIN,URINE NEGATIVE (NEG); CLARITY,URINE CLEAR; COLOR,URINE YELLOW; GLUCOSE,URINE NEGATIVE (NEG); NITRITE,URINE NEGATIVE (NEG); PROTEIN,URINE NEGATIVE (NEG-TRACE)
[2017-12-07] MEDS: IV NORMAL SALINE 1000ML BAG 1,000 ML IV (05:00)
[2017-12-07 05:05] LABS: BACTERIA,URINE 0 /HPF (0-FEW); RBC,URINE 0 /HPF (0-2); SQUAMOUS EPITHELIAL CELL,UR OCC /LPF; WBC,URINE OCC /HPF (0-4)
[2017-12-07] MEDS: IPRATRPIUM/ALBUTEROL 0.5/2.5MG 3 ML NEBU. NEB ×4 (07:23→19:09)
[2017-12-07 08:13] LABS: ADD MAN DIFF? NO
[2017-12-07 08:31] LABS: BASO % 0 % (0-3); EOS # 0.1 x10^3/uL (0.0-0.7); EOS % 1 % (0-3); HEMATOCRIT 28.5 % (39.0-53.0); HEMOGLOBIN 9.6 g/dL (13.0-17.5); LYMPH # 0.5 x10^3/uL (1.0-4.8); LYMPH % 7 % (24-48); MEAN CORPUSCULAR HEMOGLOBIN 32 pg (25-35); MEAN CORPUSCULAR HGB CONC 34 g/dL (31-37); MEAN CORPUSCULAR VOLUME 96 fL (79-100); MONO # 0.9 x10^3/uL (0.0-1.1); MONO % 12 % (0-9); NEUT # 6.1 x10^3uL (1.8-7.7); NEUT % 81 % (31-73); PLATELET COUNT 80 x10^3/uL (140-400); RED BLOOD COUNT 2.97 x10^6/uL (4.30-5.70); RED CELL DISTRIBUTION WIDTH 14.3 % (11.5-14.5); WHITE BLOOD COUNT 7.6 x10^3/uL (4.0-11.0)
[2017-12-07 08:35] LABS: INR 1.8 (0.8-1.1)
[2017-12-07 09:01] LABS: ALBUMIN 2.3 g/dL (3.4-5.0); ALBUMIN/GLOBULIN RATIO 0.7 (1.0-1.7); ALK PHOS 110 U/L (46-116); ALT (SGPT) 168 U/L (16-63); AMYLASE 30 U/L (25-115); ANION GAP 7 (6-14); AST (SGOT) 63 U/L (15-37); BLOOD UREA NITROGEN 24 mg/dL (8-26); BUN/CREATININE RATIO 17 (6-20); CALCIUM 9.6 mg/dL (8.5-10.1); CARBON DIOXIDE 24 mmol/L (21-32); CHLORIDE 109 mmol/L (98-107); CREATININE 1.4 mg/dL (0.7-1.3); DIRECT BILIRUBIN 0.8 mg/dL (0.0-0.2); GFR 49.3; GLUCOSE 98 mg/dL (70-99); LIPASE 109 U/L (73-393); POTASSIUM 4.2 mmol/L (3.5-5.1); SODIUM 140 mmol/L (136-145); TOTAL BILIRUBIN 3.1 mg/dL (0.2-1.0); TOTAL PROTEIN 5.5 g/dL (6.4-8.2)
[2017-12-07] MEDS: FUROSEMIDE 20 MG TABLET PO (10:06)
[2017-12-07] MEDS: LACTOBACILLUS RHAMNOSUS GG 1 CAPSULE. PO ×2 (10:06→21:36)
[2017-12-07] MEDS: FUROSEMIDE 40 MG/4 ML VIAL. IVP (10:07)
[2017-12-07] MEDS: AMIODARONE HCL 200 MG TABLET. PO (10:08)
[2017-12-07] MEDS: CALCITRIOL 0.25 MCG CAPSULE. PO (10:08)
[2017-12-07] MEDS: FLUTICASONE 50MCG/NASAL SPRAY 16GM BOTTLE. NS ×2 (10:10→21:36)
[2017-12-07] MEDS ORDERED: LIDOCAINE WITH 8.4% SOD BICARB 3 ML DISP.SYRIN. (15:45)
[2017-12-07] MEDS ORDERED: fentaNYL PF VIAL 100 MCG/2 ML VIAL (15:46)
[2017-12-07] MEDS ORDERED: MIDAZOLAM HCL/PF 2 MG/2 ML VIAL. (15:46)
[2017-12-07] MEDS ORDERED: IOHEXOL 240 MG/ML 50ML VIAL. (15:52)
[2017-12-07] MEDS ORDERED: NON FORMULARY ITEM (Warfarin Sodium 5 MG) PO (16:00)
[2017-12-07] MEDS ORDERED: WARFARIN SODIUM 7.5 MG PO (16:00)
[2017-12-07] MEDS ORDERED: CONTRAST GIVEN. MC (16:15)
[2017-12-07] MEDS: LIDOCAINE WITH 8.4% SOD BICARB 3 ML DISP.SYRIN. IJ (16:22)
[2017-12-07] MEDS: fentaNYL PF VIAL 100 MCG/2 ML VIAL IV (16:23)
[2017-12-07] MEDS: MIDAZOLAM HCL/PF 2 MG/2 ML VIAL. IV (16:24)
[2017-12-07] MEDS: IOHEXOL 240 MG/ML 50ML VIAL. IJ (16:25)
[2017-12-07] MEDS: VANCOMYCIN 1.5 GM in IV 1/2 NORMAL SALINE 500 ML IV (17:00)
[2017-12-07 17:21] LABS: TYPE AND SCREEN 1 1
[2017-12-07] MEDS: METOPROLOL SUCC 24HR ER 25 MG TAB.ER.24H. PO (18:00)
[2017-12-07 18:18] LABS: VANC TR 11.8 mcg/mL (10.0-20.0)
[2017-12-07] MEDS: VANCOMYCIN PER PHARMACY MC ×2 (19:16→19:23)
[2017-12-07] MEDS: CETIRIZINE HCL 10 MG TABLET. PO (21:36)
[2017-12-07] MEDS: ATORVASTATIN CALCIUM 10 MG TABLET. PO (21:36)
[2017-12-07] MEDS: TAMSULOSIN 0.4 MG CAP.ER.24H. PO (21:36)
[2017-12-07] MEDS: VANCOMYCIN 1.25 GM in IV DEXTROSE 5 %-0.2 % NACL 250 ML IV (21:37)
[2017-12-07] MEDS: ALPRAZolam 1 MG TABLET PO (21:41)
[2017-12-08] MEDS: PIPERACILLIN/TAZOBACTAM 3.375 GM in IV NORMAL SALINE 50ML 50 ML IV ×5 (00:08→23:31)
[2017-12-08 03:52] LABS: ADD MAN DIFF? NO
[2017-12-08 04:25] LABS: ALBUMIN 2.4 g/dL (3.4-5.0); ALBUMIN/GLOBULIN RATIO 0.8 (1.0-1.7); ALK PHOS 106 U/L (46-116); ALT (SGPT) 127 U/L (16-63); ANION GAP 6 (6-14); AST (SGOT) 34 U/L (15-37); BLOOD UREA NITROGEN 22 mg/dL (8-26); BUN/CREATININE RATIO 15 (6-20); CALCIUM 10.2 mg/dL (8.5-10.1); CARBON DIOXIDE 28 mmol/L (21-32); CHLORIDE 107 mmol/L (98-107); CREATININE 1.5 mg/dL (0.7-1.3); DIRECT BILIRUBIN 0.9 mg/dL (0.0-0.2); GFR 45.5; GLUCOSE 93 mg/dL (70-99); POTASSIUM 3.8 mmol/L (3.5-5.1); SODIUM 141 mmol/L (136-145); TOTAL BILIRUBIN 2.5 mg/dL (0.2-1.0); TOTAL PROTEIN 5.6 g/dL (6.4-8.2)
[2017-12-08 05:12] LABS: BASO % 0 % (0-3); EOS # 0.1 x10^3/uL (0.0-0.7); EOS % 2 % (0-3); HEMATOCRIT 30.9 % (39.0-53.0); HEMOGLOBIN 10.6 g/dL (13.0-17.5); LYMPH # 0.5 x10^3/uL (1.0-4.8); LYMPH % 8 % (24-48); MEAN CORPUSCULAR HEMOGLOBIN 33 pg (25-35); MEAN CORPUSCULAR HGB CONC 34 g/dL (31-37); MEAN CORPUSCULAR VOLUME 96 fL (79-100); MONO # 0.9 x10^3/uL (0.0-1.1); MONO % 12 % (0-9); NEUT # 5.3 x10^3uL (1.8-7.7); NEUT % 77 % (31-73); PLATELET COUNT 89 x10^3/uL (140-400); RED BLOOD COUNT 3.22 x10^6/uL (4.30-5.70); RED CELL DISTRIBUTION WIDTH 14.2 % (11.5-14.5); WHITE BLOOD COUNT 6.9 x10^3/uL (4.0-11.0)
[2017-12-08 05:32] LABS: INR 1.3 (0.8-1.1); PROTHROMBIN TIME PATIENT 15.9 SEC (11.7-14.0)
[2017-12-08 06:19] LABS: PLT ESTIMATE DECREASED (ADEQUATE)
[2017-12-08] MEDS: VANCOMYCIN 1.25 GM in IV DEXTROSE 5 %-0.2 % NACL 250 ML IV ×2 (07:14→18:34)
[2017-12-08] MEDS: IPRATRPIUM/ALBUTEROL 0.5/2.5MG 3 ML NEBU. NEB ×4 (07:33→19:38)
[2017-12-08] MEDS: LACTOBACILLUS RHAMNOSUS GG 1 CAPSULE. PO ×2 (09:53→21:00)
[2017-12-08] MEDS: FLUTICASONE 50MCG/NASAL SPRAY 16GM BOTTLE. NS ×2 (09:53→21:59)
[2017-12-08] MEDS: AMIODARONE HCL 200 MG TABLET. PO (09:54)
[2017-12-08] MEDS: VANCOMYCIN PER PHARMACY MC (15:58)
[2017-12-08] MEDS: WARFARIN 7.5 MG TABLET. PO (17:44)
[2017-12-08] MEDS: METOPROLOL SUCC 24HR ER 25 MG TAB.ER.24H. PO (18:35)
[2017-12-08 19:24] LABS: HEMATOCRIT 30.7 % (39.0-53.0); HEMOGLOBIN 10.2 g/dL (13.0-17.5); MEAN CORPUSCULAR HGB CONC 33 g/dL (31-37)
[2017-12-08 19:44] LABS: ALBUMIN 2.4 g/dL (3.4-5.0); ANION GAP 7 (6-14); BLOOD UREA NITROGEN 23 mg/dL (8-26); CALCIUM 10.1 mg/dL (8.5-10.1); CARBON DIOXIDE 29 mmol/L (21-32); CHLORIDE 109 mmol/L (98-107); CREATININE 1.5 mg/dL (0.7-1.3); GFR 45.5; GLUCOSE 105 mg/dL (70-99); PHOSPHORUS 1.7 mg/dL (2.6-4.7); POTASSIUM 3.9 mmol/L (3.5-5.1); SODIUM 145 mmol/L (136-145)
[2017-12-08] MEDS: CETIRIZINE HCL 10 MG TABLET. PO (21:00)
[2017-12-08] MEDS: ATORVASTATIN CALCIUM 10 MG TABLET. PO (21:00)
[2017-12-08] MEDS: TAMSULOSIN 0.4 MG CAP.ER.24H. PO (21:00)
[2017-12-09] MEDS: ALPRAZolam 1 MG TABLET PO ×2 (00:52→22:04)
[2017-12-09] MEDS: PIPERACILLIN/TAZOBACTAM 3.375 GM in IV NORMAL SALINE 50ML 50 ML IV ×3 (05:59→18:21)
[2017-12-09 06:57] LABS: INR 1.3 (0.8-1.1); PROTHROMBIN TIME PATIENT 15.2 SEC (11.7-14.0)
[2017-12-09] MEDS: IPRATRPIUM/ALBUTEROL 0.5/2.5MG 3 ML NEBU. NEB ×4 (07:02→18:34)
[2017-12-09 07:05] LABS: VANC TR 19.7 mcg/mL (10.0-20.0)
[2017-12-09 09:10] LABS: ALBUMIN 2.3 g/dL (3.4-5.0); ALK PHOS 90 U/L (46-116); ALT (SGPT) 95 U/L (16-63); AST (SGOT) 22 U/L (15-37); DIRECT BILIRUBIN 0.6 mg/dL (0.0-0.2); TOTAL BILIRUBIN 1.8 mg/dL (0.2-1.0); TOTAL PROTEIN 5.7 g/dL (6.4-8.2)
[2017-12-09] MEDS: VANCOMYCIN PER PHARMACY MC (09:42)
[2017-12-09] MEDS: FUROSEMIDE 20 MG TABLET PO (09:45)
[2017-12-09] MEDS: LACTOBACILLUS RHAMNOSUS GG 1 CAPSULE. PO ×2 (09:45→22:03)
[2017-12-09] MEDS: CALCITRIOL 0.25 MCG CAPSULE. PO (09:45)
[2017-12-09] MEDS: VANCOMYCIN 1.25 GM in IV DEXTROSE 5 %-0.2 % NACL 250 ML IV (09:45)
[2017-12-09] MEDS: AMIODARONE HCL 200 MG TABLET. PO (09:46)
[2017-12-09] MEDS: FLUTICASONE 50MCG/NASAL SPRAY 16GM BOTTLE. NS ×2 (09:47→22:04)
[2017-12-09] MEDS: DOCUSATE SODIUM 100 MG CAPSULE. PO (09:52)
[2017-12-09] MEDS: WARFARIN 6 MG TABLET. PO (16:26)
[2017-12-09] MEDS: METOPROLOL SUCC 24HR ER 25 MG TAB.ER.24H. PO (18:21)
[2017-12-09] MEDS: TAMSULOSIN 0.4 MG CAP.ER.24H. PO (22:03)
[2017-12-09] MEDS: CETIRIZINE HCL 10 MG TABLET. PO (22:04)
[2017-12-09] MEDS: ATORVASTATIN CALCIUM 10 MG TABLET. PO (22:04)
[2017-12-09] MEDS: VANCOMYCIN 1 GM in IV DEXTROSE 5 %-0.2 % NACL 250 ML IV (22:10)
[2017-12-10] MEDS: PIPERACILLIN/TAZOBACTAM 3.375 GM in IV NORMAL SALINE 50ML 50 ML IV ×5 (00:24→23:58)
[2017-12-10 04:07] LABS: INR 1.2 (0.8-1.1); PROTHROMBIN TIME PATIENT 15.1 SEC (11.7-14.0)
[2017-12-10] MEDS ORDERED: ONDANSETRON PF 4 MG/2 ML VIAL. (05:44)
[2017-12-10] MEDS: ONDANSETRON PF 4 MG/2 ML VIAL. IV (05:50)
[2017-12-10] MEDS: ALBUTEROL SULFATE 2.5 MG/3 ML NEBU. NEB (05:50)
[2017-12-10 07:14] LABS: PCO2 COOX 67 mmHg (35-46); PH COOX 7.28 (7.35-7.45); PO2 COOX 54 mmHg (65-108)
[2017-12-10 07:15] LABS: ALLEN TEST POS; BASE EXCESS COOX 3 mmol/L (-3-3); CARBON MONOXIDE 0.3 % (0.0-1.9); FIO2 COOX 60; HCO3 COOX 31 mmol/L (21-28); SAT O2 COOX 86 % (92-99)
[2017-12-10] MEDS: IV NORMAL SALINE 1000ML BAG 1,000 ML IV ×2 (07:56→18:34)
[2017-12-10] MEDS: IPRATRPIUM/ALBUTEROL 0.5/2.5MG 3 ML NEBU. NEB ×4 (07:59→19:57)
[2017-12-10] MEDS: LACTOBACILLUS RHAMNOSUS GG 1 CAPSULE. PO ×2 (08:06→21:48)
[2017-12-10] MEDS: DOCUSATE SODIUM 100 MG CAPSULE. PO (08:07)
[2017-12-10] MEDS: methylPREDNISolone SOD SUCC PF 125 MG/2 ML VIAL. IV (08:07)
[2017-12-10] MEDS: AMIODARONE HCL 200 MG TABLET. PO (08:07)
[2017-12-10] MEDS: FLUTICASONE 50MCG/NASAL SPRAY 16GM BOTTLE. NS ×2 (08:10→21:49)
[2017-12-10] MEDS: VANCOMYCIN PER PHARMACY MC (08:27)
[2017-12-10 09:47] LABS: ANION GAP 3 (6-14); BLOOD UREA NITROGEN 26 mg/dL (8-26); CALCIUM 10.5 mg/dL (8.5-10.1); CARBON DIOXIDE 33 mmol/L (21-32); CHLORIDE 110 mmol/L (98-107); CREATININE 1.5 mg/dL (0.7-1.3); GFR 45.5; GLUCOSE 127 mg/dL (70-99); POTASSIUM 3.9 mmol/L (3.5-5.1); SODIUM 146 mmol/L (136-145)
[2017-12-10] MEDS: VANCOMYCIN 1 GM in IV DEXTROSE 5 %-0.2 % NACL 250 ML IV ×2 (10:00→21:48)
[2017-12-10] MEDS: PANTOPRAZOLE IV PUSH 40 MG VIAL. IVP (10:06)
[2017-12-10 10:16] LABS: ALBUMIN 2.3 g/dL (3.4-5.0); ALK PHOS 86 U/L (46-116); ALT (SGPT) 76 U/L (16-63); AST (SGOT) 20 U/L (15-37); DIRECT BILIRUBIN 0.4 mg/dL (0.0-0.2); TOTAL BILIRUBIN 0.8 mg/dL (0.2-1.0)
[2017-12-10 14:30] LABS: CREAT RD UR 100.9 mg/dL (Not Estab.); MICRO CREAT RATIO 12.7 mg/g creat (0.0-30.0); MICROALB RD UR 12.8 ug/mL (Not Estab.)
[2017-12-10] MEDS: WARFARIN 7.5 MG TABLET. PO (16:33)
[2017-12-10] MEDS: METOPROLOL SUCC 24HR ER 25 MG TAB.ER.24H. PO (18:34)
[2017-12-10 21:11] LABS: MRSA BY PCR Negative (Negative)
[2017-12-10] MEDS: TAMSULOSIN 0.4 MG CAP.ER.24H. PO (21:48)
[2017-12-10] MEDS: ATORVASTATIN CALCIUM 10 MG TABLET. PO (21:48)
[2017-12-10] MEDS: CETIRIZINE HCL 10 MG TABLET. PO (21:48)
[2017-12-11] MEDS: IV NORMAL SALINE 1000ML BAG 1,000 ML IV (03:57)
[2017-12-11 05:51] LABS: GFR 30.9
[2017-12-11 05:51] LABS: CREATININE 2.1 mg/dL (0.7-1.3)
[2017-12-11 05:54] LABS: ALBUMIN 2.4 g/dL (3.4-5.0); ANION GAP 8 (6-14); BLOOD UREA NITROGEN 35 mg/dL (8-26); CALCIUM 11.6 mg/dL (8.5-10.1); CARBON DIOXIDE 27 mmol/L (21-32); CHLORIDE 107 mmol/L (98-107); CREATININE 2.1 mg/dL (0.7-1.3); GFR 30.9; GLUCOSE 185 mg/dL (70-99); PHOSPHORUS 3.1 mg/dL (2.6-4.7); POTASSIUM 4.2 mmol/L (3.5-5.1); SODIUM 142 mmol/L (136-145)
[2017-12-11 05:55] LABS: INR 1.7 (0.8-1.1); PROTHROMBIN TIME PATIENT 19.1 SEC (11.7-14.0)
[2017-12-11] MEDS: PIPERACILLIN/TAZOBACTAM 3.375 GM in IV NORMAL SALINE 50ML 50 ML IV ×2 (05:59→12:40)
[2017-12-11] MEDS: IPRATRPIUM/ALBUTEROL 0.5/2.5MG 3 ML NEBU. NEB ×2 (08:16→12:13)
[2017-12-11] MEDS: PANTOPRAZOLE IV PUSH 40 MG VIAL. IVP (08:20)
[2017-12-11] MEDS: methylPREDNISolone SOD SUCC PF 125 MG/2 ML VIAL. IV (08:20)
[2017-12-11] MEDS: FUROSEMIDE 20 MG TABLET PO (08:21)
[2017-12-11] MEDS: AMIODARONE HCL 200 MG TABLET. PO (08:21)
[2017-12-11] MEDS: DOCUSATE SODIUM 100 MG CAPSULE. PO (08:21)
[2017-12-11] MEDS: LACTOBACILLUS RHAMNOSUS GG 1 CAPSULE. PO (08:21)
[2017-12-11] MEDS: CALCITRIOL 0.25 MCG CAPSULE. PO (08:21)
[2017-12-11] MEDS: FLUTICASONE 50MCG/NASAL SPRAY 16GM BOTTLE. NS (08:22)
[2017-12-11] MEDS: VANCOMYCIN PER PHARMACY MC (09:48)
[2017-12-11 09:53] LABS: BASE EXCESS ABG -1 mmol/L (-3-3); HCO3 ABG 25 mmol/L (21-28); PCO2 ABG 48 mmHg (35-46); PH ABG 7.33 (7.35-7.45); PO2 ABG 51 mmHg (65-108); SAT O2 ABG 85 % (92-99)
[2017-12-11 09:54] LABS: FIO2 ABG 21
[2017-12-11] MEDS ORDERED: WARFARIN 4 MG TABLET. PO (16:00)
[2017-12-11] MEDS ORDERED: VANCOMYCIN 1.5 GM in IV 1/2 NORMAL SALINE 500 ML IV (22:00)
== END 2017-12-11 14:45 | disposition home or self-care (01) | DRG 417 ==
LOC: 1 WEST ICU 12-10 07:00 → ER 11:12 → 4 NORTH 14:30
PROC: 30233L1 Transfusion of Nonautologous Fresh Plasma into Peripheral Vein, Percutaneous Approach (ICD-10-PCS; principal; 2017-12-06)
PROC: 30233K1 Transfusion of Nonautologous Frozen Plasma into Peripheral Vein, Percutaneous Approach (ICD-10-PCS; 2017-12-06)
PROC: 5A09357 Assistance with Respiratory Ventilation, Less than 24 Consecutive Hours, Continuous Positive Airway Pressure (ICD-10-PCS; 2017-12-06)
PROC: 0FT44ZZ Resection of Gallbladder, Percutaneous Endoscopic Approach (ICD-10-PCS; 2017-12-10)
DX: K80.00 Calculus of gallbladder with acute cholecystitis without obstruction (principal); J96.00 Acute respiratory failure, unspecified whether with hypoxia or hypercapnia; R65.11 Systemic inflammatory response syndrome (SIRS) of non-infectious origin with acute organ dysfunction; N18.4 Chronic kidney disease, stage 4 (severe); I50.32 Chronic diastolic (congestive) heart failure; I13.0 Hypertensive heart and chronic kidney disease with heart failure and stage 1 through stage 4 chronic kidney disease, or unspecified chronic kidney disease; N17.9 Acute kidney failure, unspecified; I42.9 Cardiomyopathy, unspecified; D68.9 Coagulation defect, unspecified; I95.9 Hypotension, unspecified; J44.9 Chronic obstructive pulmonary disease, unspecified; I48.0 Paroxysmal atrial fibrillation; F41.9 Anxiety disorder, unspecified; I25.10 Atherosclerotic heart disease of native coronary artery without angina pectoris; E78.5 Hyperlipidemia, unspecified; G47.33 Obstructive sleep apnea (adult) (pediatric); K80.70 Calculus of gallbladder and bile duct without cholecystitis without obstruction; D64.9 Anemia, unspecified; I48.2 Chronic atrial fibrillation; D69.6 Thrombocytopenia, unspecified; B96.20 Unspecified Escherichia coli [E. coli] as the cause of diseases classified elsewhere; I44.0 Atrioventricular block, first degree; Z87.891 Personal history of nicotine dependence; Z82.49 Family history of ischemic heart disease and other diseases of the circulatory system; Z79.01 Long term (current) use of anticoagulants; Z83.3 Family history of diabetes mellitus
CPT/HCPCS: 36415; 36600; 47490; 70450; 71045; 74176; 76536; 76700; 78070; 80048; 80053; 80069; 80076; 80202; 80307; 81001; 82043; 82150; 82248; 82553; 82565; 82570; 82805; 83605; 83690; 83735; 83880; 84145; 84443; 84484; 85007; 85014; 85018; 85025; 85610; 86850; 86900; 86901; 86927; 87040; 87071; 87075; 87186; 87205; 87641; 93005; 93306; 94640; 94660; 94760; 96365; 96367; 96374; 96375; 97110-GP; 97116-GP; 97162-GP; 97166-GO; 97535-GO; 99152; 99153; 99285; 99285-25; C1729; C1769; C1892; C1894; C9113; J0360; J0610; J1940; J1956; J2060; J2250; J2270; J2405; J2543; J2930; J3010; J3370; J3430; J3490; J7030; J7613; J7620; P9017; Q9966

== ENCOUNTER 2018-01-08 06:27 | Emergency (ER) | payer MEDICARE, OTHER ==
[2018-01-08 08:23] LABS: ADD MAN DIFF? NO
[2018-01-08 08:33] LABS: BASO # 0.1 x10^3/uL (0.0-0.2); BASO % 1 % (0-3); EOS # 0.2 x10^3/uL (0.0-0.7); EOS % 2 % (0-3); HEMATOCRIT 31.7 % (39.0-53.0); HEMOGLOBIN 10.5 g/dL (13.0-17.5); LYMPH # 0.9 x10^3/uL (1.0-4.8); LYMPH % 9 % (24-48); MEAN CORPUSCULAR HEMOGLOBIN 32 pg (25-35); MEAN CORPUSCULAR HGB CONC 33 g/dL (31-37); MEAN CORPUSCULAR VOLUME 96 fL (79-100); MONO # 1.1 x10^3/uL (0.0-1.1); MONO % 11 % (0-9); NEUT # 7.3 x10^3uL (1.8-7.7); NEUT % 77 % (31-73); PLATELET COUNT 118 x10^3/uL (140-400); RED BLOOD COUNT 3.29 x10^6/uL (4.30-5.70); RED CELL DISTRIBUTION WIDTH 14.4 % (11.5-14.5); WHITE BLOOD COUNT 9.5 x10^3/uL (4.0-11.0)
[2018-01-08 08:34] LABS: ANION GAP 4 (6-14); BLOOD UREA NITROGEN 35 mg/dL (8-26); BUN/CREATININE RATIO 18 (6-20); CALCIUM 10.1 mg/dL (8.5-10.1); CARBON DIOXIDE 27 mmol/L (21-32); CHLORIDE 107 mmol/L (98-107); CREATININE 1.9 mg/dL (0.7-1.3); GFR 34.6; GLUCOSE 106 mg/dL (70-99); SODIUM 138 mmol/L (136-145)
[2018-01-08 08:41] LABS: ALBUMIN 3.1 g/dL (3.4-5.0); ALBUMIN/GLOBULIN RATIO 0.9 (1.0-1.7); ALK PHOS 76 U/L (46-116); ALT (SGPT) 30 U/L (16-63); AST (SGOT) 25 U/L (15-37); TOTAL BILIRUBIN 1.1 mg/dL (0.2-1.0); TOTAL PROTEIN 6.5 g/dL (6.4-8.2)
[2018-01-08 08:44] LABS: INR 2.5 (0.8-1.1); PARTIAL THROMBOPLASTIN TIME 40 SEC (24-38); PROTHROMBIN TIME PATIENT 26.4 SEC (11.7-14.0)
== END 2018-01-08 09:42 | disposition home or self-care (01) ==
LOC: ER 09:42
DX: K91.89 Other postprocedural complications and disorders of digestive system (principal); I48.91 Unspecified atrial fibrillation; I13.0 Hypertensive heart and chronic kidney disease with heart failure and stage 1 through stage 4 chronic kidney disease, or unspecified chronic kidney disease; N18.9 Chronic kidney disease, unspecified; I50.9 Heart failure, unspecified; J44.9 Chronic obstructive pulmonary disease, unspecified; Z95.0 Presence of cardiac pacemaker; Z95.5 Presence of coronary angioplasty implant and graft; Z88.1 Allergy status to other antibiotic agents; Y83.8 Other surgical procedures as the cause of abnormal reaction of the patient, or of later complication, without mention of misadventure at the time of the procedure; Y92.89 Other specified places as the place of occurrence of the external cause
CPT/HCPCS: 36415; 80053; 85025; 85610; 85730; 99284

== ENCOUNTER → 2018-01-21 | Outpatient (CLI) | payer MEDICARE, OTHER ==
[2018-01-21] MEDS: REGADENOSON 0.4 MG/5 ML DISP.SYRIN. IV (12:15)
== END | disposition home or self-care (01) ==
LOC: NM 09:32
DX: Z01.818 Encounter for other preprocedural examination (principal); J44.9 Chronic obstructive pulmonary disease, unspecified; I13.0 Hypertensive heart and chronic kidney disease with heart failure and stage 1 through stage 4 chronic kidney disease, or unspecified chronic kidney disease; I50.22 Chronic systolic (congestive) heart failure; N18.4 Chronic kidney disease, stage 4 (severe); D63.1 Anemia in chronic kidney disease; K21.9 Gastro-esophageal reflux disease without esophagitis
CPT/HCPCS: 78452; 93017; 96374; 96375; 96376; A9500; J2785

== ENCOUNTER → 2018-01-28 | Outpatient (CLI) | payer MEDICARE, OTHER ==
[2018-01-28 09:43] LABS: ADD MAN DIFF? NO
[2018-01-28 09:52] LABS: BASO # 0.1 x10^3/uL (0.0-0.2); BASO % 1 % (0-3); EOS # 0.3 x10^3/uL (0.0-0.7); EOS % 4 % (0-3); HEMATOCRIT 32.1 % (39.0-53.0); HEMOGLOBIN 10.6 g/dL (13.0-17.5); LYMPH # 1.1 x10^3/uL (1.0-4.8); LYMPH % 19 % (24-48); MEAN CORPUSCULAR HEMOGLOBIN 32 pg (25-35); MEAN CORPUSCULAR HGB CONC 33 g/dL (31-37); MEAN CORPUSCULAR VOLUME 96 fL (79-100); MONO # 0.7 x10^3/uL (0.0-1.1); MONO % 11 % (0-9); NEUT # 3.9 x10^3uL (1.8-7.7); NEUT % 64 % (31-73); PLATELET COUNT 156 x10^3/uL (140-400); RED BLOOD COUNT 3.33 x10^6/uL (4.30-5.70); RED CELL DISTRIBUTION WIDTH 14.4 % (11.5-14.5); WHITE BLOOD COUNT 6.1 x10^3/uL (4.0-11.0)
[2018-01-28 09:58] LABS: ALBUMIN 3.1 g/dL (3.4-5.0); ANION GAP 7 (6-14); BLOOD UREA NITROGEN 40 mg/dL (8-26); CALCIUM 10.4 mg/dL (8.5-10.1); CARBON DIOXIDE 26 mmol/L (21-32); CHLORIDE 110 mmol/L (98-107); CREATININE 2.2 mg/dL (0.7-1.3); GFR 29.2; GLUCOSE 107 mg/dL (70-99); POTASSIUM 4.9 mmol/L (3.5-5.1); SODIUM 143 mmol/L (136-145); TOTAL BILIRUBIN 0.6 mg/dL (0.2-1.0)
== END | disposition home or self-care (01) ==
LOC: SURGPAT 09:07
DX: Z01.818 Encounter for other preprocedural examination (principal); Z43.4 Encounter for attention to other artificial openings of digestive tract; I13.0 Hypertensive heart and chronic kidney disease with heart failure and stage 1 through stage 4 chronic kidney disease, or unspecified chronic kidney disease; I50.22 Chronic systolic (congestive) heart failure; N18.4 Chronic kidney disease, stage 4 (severe); E78.5 Hyperlipidemia, unspecified; I25.10 Atherosclerotic heart disease of native coronary artery without angina pectoris; J44.9 Chronic obstructive pulmonary disease, unspecified; K21.9 Gastro-esophageal reflux disease without esophagitis; E78.00 Pure hypercholesterolemia, unspecified; Z86.2 Personal history of diseases of the blood and blood-forming organs and certain disorders involving the immune mechanism; Z95.5 Presence of coronary angioplasty implant and graft; Z85.828 Personal history of other malignant neoplasm of skin; Z87.891 Personal history of nicotine dependence; Z82.49 Family history of ischemic heart disease and other diseases of the circulatory system; Z83.3 Family history of diabetes mellitus
CPT/HCPCS: 36415; 80048; 82040; 82247; 85025

== ENCOUNTER 2018-02-03 08:31 | Inpatient (IN) | payer MEDICARE, OTHER ==
[~2018-02-03] VITALS: Ht 193 cm; Wt 102.7 kg
[2018-02-03] VITALS (10 sets, daily range): BP systolic 139–183; BP diastolic 60–91
[~2018-02-03 08:31] MED LIST changes: -AMIO200T2 PO; +AMIO200T4 PO; +ASCO500T3 PO; +ASPI-630 PO; -ASPI81TA2 PO; +B CO1TAB10 PO; +BUPIVACAINE-EPI 0.5%-1:200000 50 ML VIAL. ONE; +CHOL2000 PO; -CLIN-44 PO; +CLIN150C14 PO; -CLOP75TA27 PO; +CLOP75TA57 PO; +DESFLURANE 61 TO 120 MINUTES IH ONE; +DEXAMETHASONE SOD PHOS 20 MG/5 ML VIAL. ONE; -FERR-26 PO; +FERR325T14 PO; +FURO20TA3 PO; +IOHEXOL 300 MG/ML 100ML VIAL. ONE; -IPRA3AMP IH; +IPRA3AMP29 IH; +IV RINGERS,LACTATED 1000ML 1,000 ML IV SCH; +KETOROLAC 30 MG/ML INJ FOR OR. INJ ONE; +LIDOCAINE 1% PF 2 ML VIAL. ID PRN; +LIDOCAINE 2% PF Vial for OR 5 ML VIAL. ONE; +METO-239 PO; -METO50TA2 PO; +METO50TA6 PO; +MORPHINE SULFATE 2 MG/ML VIAL. IV PRN; +ONDA4TAB10 SL; +ONDANSETRON PF 4 MG/2 ML VIAL. ONE; +PROCHLORPERAZINE 10 MG/2 ML VIAL. IV PRN; +PROPOFOL 20 ML IV ONE; +ROCURONIUM 50 MG/5 ML VIAL. ONE; +VITA150T PO; +WARF-31 PO; -WARF5TAB7 PO; +WARF7.5T45 PO; -WARF7.5T6 PO; +ceFAZolin 2GM PREMIX 2 GM/50 ML BAG IV ONE; +ePHEDrine PF IN SALINE 50 MG/5 ML DISP.SYRIN IV ONE; +fentaNYL PF VIAL 100 MCG/2 ML VIAL IV PRN; +fentaNYL PF VIAL 100 MCG/2 ML VIAL ONE
[2018-02-03] MEDS ORDERED: PHENYLEPHRINE in 0.9% NACL PF 1 MG/10 ML SYRINGE. IV ONE (09:24)
[2018-02-03 09:26] LABS: PROTHROMBIN TIME PATIENT 14.4 SEC (11.7-14.0)
[2018-02-03] MEDS ORDERED: NEOSTIGMINE METHYLSULFATE 5 MG/5 ML SYRINGE. ONE (09:55)
[2018-02-03] MEDS ORDERED: GLYCOPYRROLATE 1 MG/5 ML VIAL. ONE (09:55)
--- NOTE | 2018-02-03 10:40 | RAD ---
OPERATIVE CHOLANGIOGRAM: History: Laparoscopic cholecystectomy. Comparison: CT abdomen pelvis December 04, 2017 Procedure: A total of 3 fluoroscopic images were obtained of the right upper quadrant. Cystic duct was cannulated by the surgeon. Total fluoroscopic time was 0.5 minutes. Findings: There is opacification of the cystic duct, common hepatic duct, and the common bile duct. There is a large filling defect involving the inferior common bile duct, compatible with large choledocholith versus several adjacent choledocholiths. There is biliary dilatation. No contrast material is seen in the duodenal sweep. Impression: Large filling defect involving the inferior common bile duct, compatible with choledocholithiasis. Electronically signed by: Channing Grewal MD (02/03/2018 10:37 AM) [place] [id number]
[2018-02-03] MEDS: POTASSIUM CL 20MEQ-0.45% NACL 1,000 ML IV SCH ×2 (10:46→23:55)
[2018-02-03] MEDS ORDERED: oxyCODONE/APAP 5/325 1 TAB TABLET PO PRN ×2 (11:00→12:15)
[2018-02-03] MEDS ORDERED: ENOXAPARIN 40 MG/0.4 ML SYRINGE. SQ SCH (11:00)
[2018-02-03] MEDS ORDERED: DEXTROSE 50% 25 GM / 50ML DISP.SYRIN. IV PRN (11:00)
[2018-02-03] MEDS: DOCUSATE SODIUM 100 MG CAPSULE. PO SCH ×2 (11:00→21:07)
[2018-02-03] MEDS ORDERED: ALBUTEROL SULFATE 2.5 MG/3 ML NEBU. NEB PRN (11:00)
[2018-02-03] MEDS ORDERED: 0.9 % SODIUM CHLORIDE 10 ML DISP.SYRIN. IV PRN (11:00)
[2018-02-03] MEDS: fentaNYL PF VIAL 100 MCG/2 ML VIAL IV PRN ×3 (11:07→12:13)
--- NOTE | 2018-02-03 11:26 | PDOC ---
BRIEF OPERATIVE NOTE Date: Feb 03, 2018 Pre-Op Diagnosis symptomatic cholelithiasis Post-Op Diagnosis same, with choledocholithiasis Procedure Performed l/s cholecystectomy with cholangiograms Surgeon Zeke Director Human Services Ana Paula AVILA Anesthesia Type: General Blood Loss 10cc IV Fluid 900 cc Specimens Obtained GB Findings supple GB,stone in cystic duct, grams show CBD stone/stones Complications none WES JOYCE MD Feb 03, 2018 11:26
[2018-02-03] MEDS ORDERED: hydrALAZINE 20 MG/ML VIAL. IVP PRN (12:15)
--- NOTE | 2018-02-03 12:43 | PDOC2 ---
GI CONSULT Reason For Consult: Choledocholithiasis HPI: HPI: Patient is a 77 year old male with known cholelithiasis and choledocholithiasis s/p hospitalization December 04 to December 11 2017. Patient had acute respiratory failure requiring BiPAP at that time with underlying COPD and RE. He had a Jerri tube placed and had gradual improvement of his lab values and symptoms. Patient underwent outpatient cholecystectomy today with Dr Alanis. Gallbladder supple, stone in cystic duct. IOC revealed large filling defect involving the inferior common bile duct. He currently reports RUQ discomfort and nausea. No fever. Three family members present at time of exam. PMH: PMH: CHF, COPD, CAD, HTN, AFib s/p carvioversion, CKD, carotid stenosis, sleep apnea Surg: pacemaker, B/L cataracts, B/L inguinal hernia repairs, rectal fistula, skin CA excision, cholecystectomy (today) FH: Family History: DM, Other Social History: Smoke: No ALCOHOL: rare Drugs: None ROS: GEN: Denies fevers, chills CV: Denies chest pain RESP: +COPD GI: Per HPI : Denies hematuria, dysuria ENDO: Denies weight changes SKIN: Denies jaundice, pruritus VItals: Vitals: Vital Signs Date Time Temp Pulse Resp B/P (MAP) Pulse Ox O2 Delivery O2 Flow Rate FiO2 02/03/18 12:20 16 94 Nasal Cannula 2.0 02/03/18 12:16 97.6 73 154/75 97.6 Labs: Labs: Laboratory Tests Test 02/03/18 09:06 Prothrombin Time 14.4 SEC (11.7-14.0) Prothromb Time International Ratio 1.2 (0.8-1.1) Activated Partial Thromboplast Time 32 SEC (24-38) Imaging: Imaging: OPERATIVE CHOLANGIOGRAM: History: Laparoscopic cholecystectomy. Comparison: CT abdomen pelvis December 04, 2017 Procedure: A total of 3 fluoroscopic images were obtained of the right upper quadrant. Cystic duct was cannulated by the surgeon. Total fluoroscopic time was 0.5 minutes. Findings: There is opacification of the cystic duct, common hepatic duct, and the common bile duct. There is a large filling defect involving the inferior common bile duct, compatible with large choledocholith versus several adjacent choledocholiths. There is biliary dilatation. No contrast material is seen in the duodenal sweep. Impression: Large filling defect involving the inferior common bile duct, compatible with choledocholithiasis. PE: GEN: NAD LUNGS: CTAB, NC HEART: RRR, no murmurs ABD: +TTP RUQ EXTREMITY: No edema SKIN: No rashes, no jaundice NEURO/PSYCH: A & O 3 A/P: A/P: Choledocholithiasis - s/p cholecystectomy today Nausea -- ERCP planned for tomorrow with Dr Alejo (2:30pm) Pt has ondansetron prn. ROSA DELACRUZ Feb 03, 2018 12:43
[2018-02-03] MEDS: oxyCODONE/APAP 5/325 1 TAB TABLET PO PRN ×3 (13:49→22:41)
[2018-02-03] MEDS: diphenhydrAMINE 50 MG/ML VIAL IV PRN (13:49)
[2018-02-03] MEDS: ONDANSETRON PF 4 MG/2 ML VIAL. IV PRN (13:49)
--- NOTE | 2018-02-03 14:52 | PDOC ---
PULMONARY PROGRESS NOTES Vitals Vital Signs Date Time Temp Pulse Resp B/P (MAP) Pulse Ox O2 Delivery O2 Flow Rate FiO2 02/03/18 14:16 Nasal Cannula 2.0 02/03/18 13:49 16 94 02/03/18 12:16 97.6 73 154/75 97.6 General: Alert, No acute distress Lungs: Clear Cardiovascular: S1, S2 Abdomen: Soft, Non-tender Extremities: No Edema Labs Laboratory Tests Test 02/03/18 09:06 Prothrombin Time 14.4 SEC (11.7-14.0) Prothromb Time International Ratio 1.2 (0.8-1.1) Activated Partial Thromboplast Time 32 SEC (24-38) Laboratory Tests Test 02/03/18 09:06 Prothrombin Time 14.4 SEC (11.7-14.0) Prothromb Time International Ratio 1.2 (0.8-1.1) Activated Partial Thromboplast Time 32 SEC (24-38) Medications Active Scripts Medications Dose Route/Sig Max Daily Dose Days Date Category Ferrous Sulfate 325 Mg Tablet 1 Tab PO DAILY 01/28/18 Reported Super B Complex-Vitamin C (B Complex With Vitamin C) 1 Each Tablet 1 Each PO 12/04/17 Reported Warfarin Sodium 5 Mg Tablet 7.5 Mg PO QTUTHSA 06/10/17 Reported Amiodarone Hcl 200 Mg Tablet 100 Mg PO DAILY 06/10/17 Reported Furosemide 20 Mg Tablet 10 Mg PO QMWF 06/10/17 Reported Metoprolol Succinate ( Xl ) (Metoprolol Succinate) 25 Mg Tab.er.24h 1 Tab PO QPM 11/13/16 Reported Calcitriol 0.25 Mcg Capsule 0.25 Mcg PO QM-W-F 05/24/16 Reported Warfarin Sodium 5 Mg Tablet 5 Mg PO QMWF 05/24/16 Reported Loratadine 10 Mg Tablet 10 Mg PO QHS 10/16/14 Reported Tamsulosin Hcl 0.4 Mg Cap.er.24h 0.4 Mg PO QHS 10/16/14 Reported Atorvastatin Calcium 10 Mg Tablet 10 Mg PO HS 10/16/14 Reported Duoneb 0.5-3(2.5) Mg/3 Ml (Albuterol/Ipratropium) 3 Ml Ampul.neb 3 Ml IH TID PRN 07/24/14 Reported Flonase (Fluticasone Propionate) 16 Gm [place].susp 2 [place] NS BID 01/06/14 Reported Impression . NOTE DICTATED D/W DR JOYCE SEE ORDERS THANKS DEENA PEARCE MD Feb 03, 2018 14:52
[2018-02-03] MEDS: IPRATRPIUM/ALBUTEROL 0.5/2.5MG 3 ML NEBU. NEB SCH ×2 (16:01→19:45)
--- NOTE | 2018-02-03 16:34 | PDOC ---
Provider Note Provider Note Notified of consult See office note of 01/14/2018. s/p carlos esparza Will evaluate further tomorrow. JOHN JOHN GAS ENGINE PERFORMANCE ENGINEER Feb 03, 2018 16:34
--- NOTE | 2018-02-03 18:39 | OP ---
DATE OF SURGERY: 02/03/2018 PREOPERATIVE DIAGNOSIS: Symptomatic cholelithiasis. POSTOPERATIVE DIAGNOSIS: Symptomatic cholelithiasis with choledocholithiasis. PROCEDURE: Laparoscopic cholecystectomy with cholangiogram. SURGEON: Ru Joyce MD ADULT PROTECTIVE CASEWORKER: AUSTIN Guthrie ANESTHESIA: General endotracheal. ESTIMATED BLOOD LOSS: 10 mL IV FLUIDS: 900. INDICATIONS: The patient is a 77-year-old, with postprandial epigastric and right upper quadrant pain, who had a cholecystostomy tube for 4 weeks earlier this summer. He is brought for cholecystectomy. OPERATIVE FINDINGS: Some mild liver fibrotic changes were present. The gallbladder was supple. Visual inspection of the remainder of the abdomen failed to reveal obvious abnormalities. DESCRIPTION OF PROCEDURE: The patient was brought to the operating suite, given a general endotracheal anesthetic and the abdomen was prepped and draped in usual sterile fashion. A supraumbilical incision was infiltrated with local anesthetic, incised and a 5 mm Visiport was used to safely gain access into the abdominal cavity taking care to avoid injury to abdominal contents. Pneumoperitoneum established. Camera inserted. Inspection carried out with results as noted above. With the table in reverse Trendelenburg rolled to the left, the epigastric, midclavicular and lateral ports were placed under direct vision. The gallbladder was retracted superolaterally and the cystic duct and cystic artery were exposed. A small vessel intimately attached to the cystic duct was clipped and divided to expose the duct, which was then clipped on the gallbladder side and opened. A small stone was milked from the cystic duct. Catheter was placed. Cholangiograms were made. These demonstrated a dilated ductal system with a stone/stones in the distal common bile duct preventing contrast from spilling into the duodenum. In hopes of avoiding an open exploration of the common duct, the catheter was removed. The cystic duct was clipped x 3 with large clips and divided taking care to avoid injury or compromise of the common duct. Three separate vessels supplying the gallbladder were controlled with clips, divided and the gallbladder freed from the bed and placed in an EndoCatch bag. Good hemostasis was apparent and no evidence of bile leak from the fossa was seen. A 19-Danish round Ben drain was brought through the epigastric port out the lateral port, sewn to the skin with a silk stitch and left in subhepatic space for postoperative drainage. Table returned to level. Gallbladder delivered through the epigastric incision. Epigastric incision closed with interrupted 0 Vicryl suture. Intra-abdominal pressure decreased to 6 cm of water. No bleeding from the epigastric closure or from the midclavicular port site after its removal or from the drain site. Abdomen decompressed, camera slowly removed, no bleeding seen. Skin incisions closed with subcuticular 4-0 Monocryl. Steri-Strips and sterile dressings applied. The patient was awakened from his anesthetic and taken to the recovery room in satisfactory condition. RU JOYCE MD DR: AYO/deidre JOB#: [id number] / [id number] ecc BALAJI GARCIA MD, DEENA URRUTIA MD, MD, WILLIAM MD
[2018-02-04] VITALS (8 sets, daily range): BP systolic 117–143; BP diastolic 56–74
--- NOTE | 2018-02-04 03:17 | CONS ---
DATE OF CONSULTATION: 02/03/2018 ATTENDING PHYSICIAN: Ru Alanis M.D. REASON FOR CONSULTATION: The patient seen in Pulmonary consultation at the request of Dr. Alanis for respiratory distress and COPD. HISTORY OF PRESENT ILLNESS: The patient is a 77-year-old well known to our service and has moderate COPD, who was recently hospitalized with acute cholecystitis. He underwent drain placement at that time. He developed hypercapnic respiratory failure, requiring BiPAP. He was seen in followup on 01/05/2018 by my partner, Dr. Stock. Full details of possible postop complications were discussed with the patient. Today, he underwent laparoscopic cholecystectomy and cholangiogram. Postoperatively, he was having some respiratory distress, cough, mostly nonproductive. He is now doing better. He normally wears oxygen at home and a CPAP for obstructive sleep apnea. He has chronic AFib. He has a cough, mostly nonproductive. Denies fever, chills, nausea or vomiting. PAST MEDICAL HISTORY: COPD; obstructive sleep apnea; atrial fibrillation; recent acute cholecystitis; status post drain placement and obstructive sleep apnea, home CPAP. ALLERGIES: No known drug allergies. CURRENT MEDICATIONS: List was reviewed. SOCIAL HISTORY: Socially, he is currently not smoking. REVIEW OF SYSTEMS: As indicated above, otherwise, a 10-point system was reviewed and negative. HOME MEDICATIONS: List was likewise reviewed. He was utilizing DuoNeb p.r.n. and loratadine 10 mg daily. PHYSICAL EXAMINATION: VITAL SIGNS: Stable. O2 saturation was greater than 92%. HEENT: Eyes, the sclerae were nonicteric. NECK: Jugular venous distention was not elevated. No lymphadenopathy. CHEST: Full expansion. LUNGS: Adequate airway flow with no wheezes. CARDIOVASCULAR: Regular rate and rhythm with S1 and S2. No S3. ABDOMEN: Soft, nontender and nondistended. EXTREMITIES: No clubbing, cyanosis or edema. NEUROLOGICAL: The patient was awake, alert and following commands. A detailed neuro exam was not performed. IMPRESSION: 1. Acute respiratory distress expected status post laparoscopic cholecystectomy. 2. Chronic obstructive pulmonary disease of the chronic bronchitic type. 3. Chronic atrial fibrillation. 4. Obstructive sleep apnea. PLAN: 1. Continue current support, pain management. 2. Incentive spirometry. 3. Nebulized treatments. 4. Home CPAP unit. 5. DVT prophylaxis per Dr. Alanis. I do appreciate the privilege in sharing in the patient's care. DEENA PEARCE MD DR: JAIME/deidre JOB#: [id number] / [id number]
[2018-02-04] MEDS: MORPHINE SULFATE 10 MG/ML VIAL. IV PRN ×3 (04:00→23:37)
[2018-02-04] MEDS: ONDANSETRON PF 4 MG/2 ML VIAL. IV PRN ×3 (04:08→16:22)
[2018-02-04] MEDS: ALBUTEROL SULFATE 2.5 MG/3 ML NEBU. NEB PRN (04:11)
[2018-02-04] MEDS ORDERED: IV RINGERS,LACTATED 1000ML 1,000 ML IV SCH (07:00)
[2018-02-04] MEDS ORDERED: ONDANSETRON PF 4 MG/2 ML VIAL. IV PRN (07:00)
[2018-02-04] MEDS ORDERED: fentaNYL PF VIAL 100 MCG/2 ML VIAL IV PRN ×2 (07:00)
[2018-02-04] MEDS ORDERED: LIDOCAINE 1% PF 2 ML VIAL. ID PRN (07:00)
[2018-02-04] MEDS ORDERED: MORPHINE SULFATE 2 MG/ML VIAL. IV PRN (07:00)
[2018-02-04] MEDS ORDERED: PROCHLORPERAZINE 10 MG/2 ML VIAL. IV PRN (07:00)
[2018-02-04] MEDS: IPRATRPIUM/ALBUTEROL 0.5/2.5MG 3 ML NEBU. NEB SCH ×4 (07:20→20:36)
[2018-02-04] MEDS ORDERED: ENOXAPARIN 40 MG/0.4 ML SYRINGE. SQ SCH (09:00)
[2018-02-04] MEDS: DOCUSATE SODIUM 100 MG CAPSULE. PO SCH ×2 (09:00→20:45)
[2018-02-04 10:07] LABS: ALBUMIN 3.1 g/dL (3.4-5.0); CALCIUM 10.3 mg/dL (8.5-10.1); CREATININE 2.1 mg/dL (0.7-1.3); DIRECT BILIRUBIN 0.5 mg/dL (0.0-0.2); GFR 30.9; TOTAL PROTEIN 7.1 g/dL (6.4-8.2)
--- NOTE | 2018-02-04 10:25 | PDOC ---
PULMONARY PROGRESS NOTES Subjective PT MORE SOA Vitals Vital Signs Date Time Temp Pulse Resp B/P (MAP) Pulse Ox O2 Delivery O2 Flow Rate FiO2 02/04/18 09:19 91 Nasal Cannula 3.0 02/04/18 07:00 98.1 69 18 130/61 (84) 98.1 ROS: No Nausea, No Chest Pain, No Increase Cough General: Alert Lungs: Clear Cardiovascular: S1, S2 Abdomen: Soft, Non-tender, Other (DISTENDED) Neuro Exam: Alert Extremities: No Edema Skin: Warm Labs Laboratory Tests Test 02/03/18 09:06 Prothrombin Time 14.4 SEC (11.7-14.0) Prothromb Time International Ratio 1.2 (0.8-1.1) Activated Partial Thromboplast Time 32 SEC (24-38) Medications Active Scripts Medications Dose Route/Sig Max Daily Dose Days Date Category Ferrous Sulfate 325 Mg Tablet 1 Tab PO DAILY 01/28/18 Reported Super B Complex-Vitamin C (B Complex With Vitamin C) 1 Each Tablet 1 Each PO 12/04/17 Reported Warfarin Sodium 5 Mg Tablet 7.5 Mg PO QTUTHSA 06/10/17 Reported Amiodarone Hcl 200 Mg Tablet 100 Mg PO DAILY 06/10/17 Reported Furosemide 20 Mg Tablet 10 Mg PO QMWF 06/10/17 Reported Metoprolol Succinate ( Xl ) (Metoprolol Succinate) 25 Mg Tab.er.24h 1 Tab PO QPM 11/13/16 Reported Calcitriol 0.25 Mcg Capsule 0.25 Mcg PO QM-W-F 05/24/16 Reported Warfarin Sodium 5 Mg Tablet 5 Mg PO QMWF 05/24/16 Reported Loratadine 10 Mg Tablet 10 Mg PO QHS 10/16/14 Reported Tamsulosin Hcl 0.4 Mg Cap.er.24h 0.4 Mg PO QHS 10/16/14 Reported Atorvastatin Calcium 10 Mg Tablet 10 Mg PO HS 10/16/14 Reported Duoneb 0.5-3(2.5) Mg/3 Ml (Albuterol/Ipratropium) 3 Ml Ampul.neb 3 Ml IH TID PRN 07/24/14 Reported Flonase (Fluticasone Propionate) 16 Gm [place].susp 2 [place] NS BID 01/06/14 Reported Comments IMPRESSION: 1. Minimal bibasilar lung atelectasis or infiltrates. Impression . IMPRESSION: 1. Acute/Chronic resp expected status post laparoscopic cholecystectomy. 2. Chronic obstructive pulmonary disease of the chronic bronchitic type. 3. Chronic atrial fibrillation. 4. Obstructive sleep apnea. 5. Common Bile duct stone Plan . d/w DR BRIZUELA NEEDS ERCP IF NO IN FUTURE MAY NEED TO BE INTUBATED FOR PROCEDURE BIPAP SEE ORDERS PRN ATIVAN D/W FAMILY AT BEDSIDE IS 02 NOTE 8/ 1. Continue current support, pain management. 2. Incentive spirometry. 3. Nebulized treatments. 4. Home CPAP unit. 5. DVT prophylaxis per Dr. Alanis. DEENA PEARCE MD Feb 04, 2018 10:25
[2018-02-04 10:48] LABS: POTASSIUM 6.1 mmol/L (3.5-5.1)
--- NOTE | 2018-02-04 11:40 | PDOC ---
SURGICAL PROGRESS NOTE Subjective having a little biliary emesis occasional sharp pain RUQ Vital Signs Vital Signs Date Time Temp Pulse Resp B/P (MAP) Pulse Ox O2 Delivery O2 Flow Rate FiO2 02/04/18 11:23 Nasal Cannula 2.0 02/04/18 10:00 91 02/04/18 07:00 98.1 69 18 130/61 (84) 98.1 I&O Intake and Output 02/04/18 07:00 Intake Total 1250 ml Output Total 975 ml Balance 275 ml Intake Oral 200 ml IV Total 1050 ml Output Urine Total 900 ml Drainage Total 65 ml Estimated Blood Loss 10 ml PATIENT HAS A DE LA ROSA: No General: Alert, Oriented X3, No acute distress Abdomen: Soft, Other (dressings clean, dry) Labs Laboratory Tests Test 02/03/18 09:06 02/04/18 09:25 Prothrombin Time 14.4 SEC (11.7-14.0) Prothromb Time International Ratio 1.2 (0.8-1.1) Activated Partial Thromboplast Time 32 SEC (24-38) Sodium Level 135 mmol/L (136-145) Potassium Level 6.1 mmol/L (3.5-5.1) Chloride Level 104 mmol/L (98-107) Carbon Dioxide Level 25 mmol/L (21-32) Anion Gap 6 (6-14) Blood Urea Nitrogen 53 mg/dL (8-26) Creatinine 2.1 mg/dL (0.7-1.3) Estimated GFR (Cockcroft-Gault) 30.9 Glucose Level 125 mg/dL (70-99) Calcium Level 10.3 mg/dL (8.5-10.1) Total Bilirubin 2.0 mg/dL (0.2-1.0) Direct Bilirubin 0.5 mg/dL (0.0-0.2) Aspartate Amino Transf (AST/SGOT) 30 U/L (15-37) Alanine Aminotransferase (ALT/SGPT) 27 U/L (16-63) Alkaline Phosphatase 74 U/L (46-116) Total Protein 7.1 g/dL (6.4-8.2) Albumin 3.1 g/dL (3.4-5.0) Laboratory Tests Test 02/04/18 09:25 Sodium Level 135 mmol/L (136-145) Potassium Level 6.1 mmol/L (3.5-5.1) Chloride Level 104 mmol/L (98-107) Carbon Dioxide Level 25 mmol/L (21-32) Anion Gap 6 (6-14) Blood Urea Nitrogen 53 mg/dL (8-26) Creatinine 2.1 mg/dL (0.7-1.3) Estimated GFR (Cockcroft-Gault) 30.9 Glucose Level 125 mg/dL (70-99) Calcium Level 10.3 mg/dL (8.5-10.1) Total Bilirubin 2.0 mg/dL (0.2-1.0) Direct Bilirubin 0.5 mg/dL (0.0-0.2) Aspartate Amino Transf (AST/SGOT) 30 U/L (15-37) Alanine Aminotransferase (ALT/SGPT) 27 U/L (16-63) Alkaline Phosphatase 74 U/L (46-116) Total Protein 7.1 g/dL (6.4-8.2) Albumin 3.1 g/dL (3.4-5.0) Assessment/Plan POD 1 l/s vilma, CBD stone elevated K+ real v hemolysis with difficult draw change IV fluids single dose lasix repeat labs for ERCP today WES JOYCE MD Feb 04, 2018 11:40
[2018-02-04] MEDS ORDERED: FUROSEMIDE 40 MG/4 ML VIAL. IVP ONE ×2 (11:45→16:45)
[2018-02-04] MEDS ORDERED: IOHEXOL 300 MG/ML 100ML VIAL. ONE (12:11)
--- NOTE | 2018-02-04 12:18 | PDOC ---
CARDIO Progress Notes Date and Time Date of Service 02/04/2018 Time of Evaluation 1145 Subjective Subjective: No Chest Pain, No shortness of breath, No Palpitations, Other ( intermittent RUQ abd pain; some nausea) Vitals Vitals Vital Signs Date Time Temp Pulse Resp B/P (MAP) Pulse Ox O2 Delivery O2 Flow Rate FiO2 02/04/18 11:23 Nasal Cannula 2.0 02/04/18 10:00 91 02/04/18 07:00 98.1 69 18 130/61 (84) 98.1 Weight Weight [ ] Input and Output Intake and Output Intake and Output 02/04/18 07:00 Intake Total 1250 ml Output Total 975 ml Balance 275 ml Intake Oral 200 ml IV Total 1050 ml Output Urine Total 900 ml Drainage Total 65 ml Estimated Blood Loss 10 ml Laboratory Labs Laboratory Tests Test 02/04/18 09:25 Sodium Level 135 mmol/L (136-145) Potassium Level 6.1 mmol/L (3.5-5.1) Chloride Level 104 mmol/L (98-107) Carbon Dioxide Level 25 mmol/L (21-32) Anion Gap 6 (6-14) Blood Urea Nitrogen 53 mg/dL (8-26) Creatinine 2.1 mg/dL (0.7-1.3) Estimated GFR (Cockcroft-Gault) 30.9 Glucose Level 125 mg/dL (70-99) Calcium Level 10.3 mg/dL (8.5-10.1) Total Bilirubin 2.0 mg/dL (0.2-1.0) Direct Bilirubin 0.5 mg/dL (0.0-0.2) Aspartate Amino Transf (AST/SGOT) 30 U/L (15-37) Alanine Aminotransferase (ALT/SGPT) 27 U/L (16-63) Alkaline Phosphatase 74 U/L (46-116) Total Protein 7.1 g/dL (6.4-8.2) Albumin 3.1 g/dL (3.4-5.0) Physical Exam HEENT: Neck Supple W Full Motion Chest: Symmetric LUNGS: Other (diminisehd bases) Heart: S1S2, RRR (SR) Abdomen: Other (S/P lap vilma) Extremities: No Edema, No Calf Tenderness Neurology: alert, oriented, follow commands Assessment Assessment 1. Symptomatic cholelithiasis: S/P Lap vilma, POD#1. Abd pain controlled. ERCP pending today for CBD stone 2. JAYDON on CKD: likely baseline stage 3. Likely due to volume depletion. 3. Hyperkalemia: Due to #2. 4. PAFIB: SR with intermittent pacing. 5. PPM in situ: Biotronik with recent check within normal parameters with no significant arrhythmias. 6. Chronic diastolic CHF: recent EF 50-55%, compensated 7. Normocytic anemia: Hgb stable 8. HTN: controlled. 9. Hx of CAD: stable. Recommendations 1. Agree with aggressive IVF. Low dose lasix. Albuterol treatment. Recheck BMP this afternoon. 2. Restart coumadin once cleared by GS. Restart Amiodarone and secondary prevention measures once PO is tolerated. 3. Monitor rhythm, if any bouts of sustained AFIB may use metoprolol IV but will hold for now till K is better. DELMIS ZIMMERMAN APRN Feb 04, 2018 12:18
[2018-02-04] MEDS: IV NORMAL SALINE 1000ML BAG 1,000 ML IV SCH (12:51)
[2018-02-04 13:12] LABS: CREATININE 2.3 mg/dL (0.7-1.3); GFR 27.8
[2018-02-04] MEDS ORDERED: LIDOCAINE 2% PF Vial for OR 5 ML VIAL. ONE (13:50)
[2018-02-04] MEDS ORDERED: ONDANSETRON PF 4 MG/2 ML VIAL. ONE (13:50)
[2018-02-04] MEDS ORDERED: FAMOTIDINE 20 MG/2 ML VIAL ONE (13:50)
[2018-02-04] MEDS ORDERED: DEXAMETHASONE SOD PHOS 20 MG/5 ML VIAL. ONE (13:50)
[2018-02-04] MEDS ORDERED: PROPOFOL 0 ML IV ONE (13:50)
--- NOTE | 2018-02-04 14:41 | PDOC ---
G I PROGRESS NOTE Reason for Follow-up Retained CBD stones Subjective Dyspneic sitting upright with sats 81-85% Physical Exam Lungs decreased BS with poor air movement CV S1 S2 ABD distended, hypoactive BS Review of Relevant I have reviewed the following items aron (where applicable) has been applied. Labs Laboratory Tests Test 02/03/18 09:06 02/04/18 09:25 02/04/18 12:50 Prothrombin Time 14.4 SEC (11.7-14.0) Prothromb Time International Ratio 1.2 (0.8-1.1) Activated Partial Thromboplast Time 32 SEC (24-38) Sodium Level 135 mmol/L (136-145) 136 mmol/L (136-145) Potassium Level 6.1 mmol/L (3.5-5.1) 6.0 mmol/L (3.5-5.1) Chloride Level 104 mmol/L (98-107) 104 mmol/L (98-107) Carbon Dioxide Level 25 mmol/L (21-32) 27 mmol/L (21-32) Anion Gap 6 (6-14) 5 (6-14) Blood Urea Nitrogen 53 mg/dL (8-26) 57 mg/dL (8-26) Creatinine 2.1 mg/dL (0.7-1.3) 2.3 mg/dL (0.7-1.3) Estimated GFR (Cockcroft-Gault) 30.9 27.8 Glucose Level 125 mg/dL (70-99) 125 mg/dL (70-99) Calcium Level 10.3 mg/dL (8.5-10.1) 11.0 mg/dL (8.5-10.1) Total Bilirubin 2.0 mg/dL (0.2-1.0) Direct Bilirubin 0.5 mg/dL (0.0-0.2) Aspartate Amino Transf (AST/SGOT) 30 U/L (15-37) Alanine Aminotransferase (ALT/SGPT) 27 U/L (16-63) Alkaline Phosphatase 74 U/L (46-116) Total Protein 7.1 g/dL (6.4-8.2) Albumin 3.1 g/dL (3.4-5.0) Laboratory Tests Test 02/04/18 09:25 02/04/18 12:50 Sodium Level 135 mmol/L (136-145) 136 mmol/L (136-145) Potassium Level 6.1 mmol/L (3.5-5.1) 6.0 mmol/L (3.5-5.1) Chloride Level 104 mmol/L (98-107) 104 mmol/L (98-107) Carbon Dioxide Level 25 mmol/L (21-32) 27 mmol/L (21-32) Anion Gap 6 (6-14) 5 (6-14) Blood Urea Nitrogen 53 mg/dL (8-26) 57 mg/dL (8-26) Creatinine 2.1 mg/dL (0.7-1.3) 2.3 mg/dL (0.7-1.3) Estimated GFR (Cockcroft-Gault) 30.9 27.8 Glucose Level 125 mg/dL (70-99) 125 mg/dL (70-99) Calcium Level 10.3 mg/dL (8.5-10.1) 11.0 mg/dL (8.5-10.1) Total Bilirubin 2.0 mg/dL (0.2-1.0) Direct Bilirubin 0.5 mg/dL (0.0-0.2) Aspartate Amino Transf (AST/SGOT) 30 U/L (15-37) Alanine Aminotransferase (ALT/SGPT) 27 U/L (16-63) Alkaline Phosphatase 74 U/L (46-116) Total Protein 7.1 g/dL (6.4-8.2) Albumin 3.1 g/dL (3.4-5.0) Medications Current Medications Ondansetron HCl (Zofran) 4 mg PRN Q6HRS PRN IV NAUSEA/VOMITING Last administered on 02/04/18at 04:08; Start 02/03/18 at 07:00; Stop 02/04/18 at 06:59; Status DC Fentanyl Citrate (Fentanyl 2ml Vial) 25 mcg PRN Q5MIN PRN IV MILD PAIN Last administered on 02/03/18at 12:13; Start 02/03/18 at 07:00; Stop 02/04/18 at 06:59; Status DC Fentanyl Citrate (Fentanyl 2ml Vial) 50 mcg PRN Q5MIN PRN IV MODERATE TO SEVERE PAIN; Start 02/03/18 at 07:00; Stop 02/04/18 at 06:59; Status DC Morphine Sulfate (Morphine Sulfate) 1 mg PRN Q10MIN PRN IV SEVERE PAIN Last administered on 02/03/18at 11:42; Start 02/03/18 at 07:00; Stop 02/04/18 at 06:59; Status DC Ringer's Solution 1,000 ml @ 30 mls/hr Q24H IV Last administered on 02/03/18at 09:13; Start 02/03/18 at 07:00; Stop 02/03/18 at 18:59; Status DC Lidocaine HCl (Xylocaine-Mpf 1% Vial) 2 ml PRN 1X PRN ID PRIOR TO IV START; Start 02/03/18 at 07:00; Stop 02/04/18 at 06:59; Status DC Prochlorperazine Edisylate (Compazine) 5 mg PACU PRN PRN IV NAUSEA, MRX1; Start 02/03/18 at 07:00; Stop 02/04/18 at 06:59; Status DC Cefazolin Sodium/ Dextrose 50 ml @ 100 mls/hr 1X PREOP PRN IV PRIOR TO SURGERY Last administered on 02/03/18at 09:35; Start 02/03/18 at 08:00 Fentanyl Citrate (Fentanyl 2ml Vial) 100 mcg STK-MED ONCE .ROUTE ; Start at 08:09; Stop 02/03/18 at 08:10; Status DC Rocuronium [place] (Zemuron) 50 mg STK-MED ONCE .ROUTE ; Start 02/03/18 at 08:09 ; Stop 02/03/18 at 08:10; Status DC Desflurane (Suprane) 60 ml STK-MED ONCE IH ; Start 02/03/18 at 08:09; Stop at 08:10; Status DC Dexamethasone Sodium Phosphate (Decadron) 20 mg STK-MED ONCE .ROUTE ; Start 02/03 at 08:09; Stop 02/03/18 at 08:10; Status DC Propofol 20 ml @ As Directed STK-MED ONCE IV ; Start 02/03/18 at 08:09; Stop 02/03 at 08:10; Status DC Lidocaine HCl (Lidocaine Pf 2% Vial) 5 ml STK-MED ONCE .ROUTE ; Start 02/03/18 at 08:09; Stop 02/03/18 at 08:10; Status DC Ondansetron HCl (Zofran) 4 mg STK-MED ONCE .ROUTE ; Start 02/03/18 at 08:09; Stop 02/03/18 at 08:10; Status DC Ketorolac Tromethamine (Toradol For Or Only) 30 mg STK-MED ONCE INJ ; Start 02/03 at 08:09; Stop 02/03/18 at 08:10; Status DC Ephedrine Sulfate (ePHEDrine PF IN SALINE SYRINGE) 50 mg STK-MED ONCE IV ; Start 02/03/18 at 08:15; Stop 02/03/18 at 08:16; Status DC Bupivacaine HCl/ Epinephrine Bitart (Marcaine-Epi 0.5%-[id number]) 50 ml STK-MED ONCE .ROUTE Last administered on 02/03/18at 09:49; Start 02/03/18 at 07:56; Stop 02/03/18 at 08:57; Status DC Iohexol (Omnipaque 300 Mg/ml) 100 ml STK-MED ONCE .ROUTE Last administered on at 09:49; Start 02/03/18 at 07:56; Stop 02/03/18 at 08:58; Status DC Phenylephrine HCl (PHENYLEPHRINE in 0.9% NACL PF) 1 mg STK-MED ONCE IV ; Start 02/03/18 at 09:24; Stop 02/03/18 at 09:25; Status DC Glycopyrrolate (Robinul) 1 mg STK-MED ONCE .ROUTE ; Start 02/03/18 at 09:55; Stop 02/03/18 at 09:56; Status DC Neostigmine Methylsulfate (Neostigmine Methylsulfate) 5 mg STK-MED ONCE .ROUTE ; Start 02/03/18 at 09:55; Stop 02/03/18 at 09:56; Status DC Albuterol Sulfate (Ventolin Neb Soln) 2.5 mg 1X PACU PRN NEB SHORTNESS OF BREATH Last administered on 02/03/18at 10:53; Start 02/03/18 at 11:00 Diphenhydramine HCl (Benadryl) 25 mg PRN Q6HRS PRN PO ITCHING; Start 02/03/18 at 11:00 Diphenhydramine HCl (Benadryl) 25 mg PRN Q6HRS PRN IV ITCHING Last administered on 02/03/18at 13:49; Start 02/03/18 at 11:00 Enoxaparin Sodium (Lovenox 40mg Syringe) 40 mg Q24H SQ ; Start 02/03/18 at 11:00 ; Status Cancel Sodium Chloride (Normal Saline Flush) 3 ml QSHIFT PRN IV AFTER MEDS AND BLOOD DRAWS; Start 02/03/18 at 11:00 Potassium Chloride/Sodium Chloride 1,000 ml @ 75 mls/hr [id number] IV Last administered on 02/03/18at 23:55; Start 02/03/18 at 10:46; Stop 02/04/18 at 11:37; Status DC Dextrose (Dextrose 50%-Water Syringe) 12.5 gm PRN Q15MIN PRN IV SEE COMMENTS; Start 02/03/18 at 11:00 Oxycodone/ Acetaminophen (Percocet 5/325) 1 tab PRN Q4HRS PRN PO MILD PAIN, 1ST CHOICE Last administered on 02/03/18at 22:41; Start 02/03/18 at 11:00 Oxycodone/ Acetaminophen (Percocet 5/325) 2 tab PRN Q4HRS PRN PO MODERATE PAIN , SEVERE PAIN; Start 02/03/18 at 11:00 Morphine Sulfate (Morphine Sulfate) 5 mg PRN Q3HRS PRN IV MODERATE TO SEVERE PAIN Last administered on 02/04/18at 09:19; Start 02/03/18 at 11:15 Docusate Sodium (Colace) 100 mg BID PO Last administered on 02/03/18at 21:07; Start 02/03/18 at 11:00 Ondansetron HCl (Zofran) 4 mg PRN Q6HRS PRN IV NAUESA, 1ST CHOICE Last administered on 02/04/18at 09:09; Start 02/03/18 at 11:00 Enoxaparin Sodium (Lovenox 40mg Syringe) 40 mg Q24H SQ ; Start 02/04/18 at 09:00 ; Stop 02/04/18 at 09:00; Status DC Hydralazine HCl (Apresoline Inj) 10 mg 1X PACU PRN IVP ELEVATED BP, SEE COMMENTS; Start 02/03/18 at 12:15; Stop 02/03/18 at 20:00; Status DC Oxycodone/ Acetaminophen (Percocet 5/325) 1 tab 1X PACU PRN PO PAIN Last administered on 02/03/18at 12:20; Start 02/03/18 at 12:15; Stop 02/03/18 at 20:00; Status DC Albuterol Sulfate (Ventolin Neb Soln) 2.5 mg PRN Q2HR PRN NEB DYSPNEA Last administered on 02/04/18at 04:11; Start 02/03/18 at 15:00 Albuterol/ Ipratropium (Duoneb) 3 ml RTQID NEB Last administered on 02/04/18at 11 :21; Start 02/03/18 at 16:00 Ondansetron HCl (Zofran) 4 mg PRN Q6HRS PRN IV NAUSEA/VOMITING; Start 02/04/18 at 07:00; Stop 02/05/18 at 06:59 Fentanyl Citrate (Fentanyl 2ml Vial) 25 mcg PRN Q5MIN PRN IV MILD PAIN; Start 02/04/18 at 07:00; Stop 02/05/18 at 06:59 Fentanyl Citrate (Fentanyl 2ml Vial) 50 mcg PRN Q5MIN PRN IV MODERATE TO SEVERE PAIN; Start 02/04/18 at 07:00; Stop 02/05/18 at 06:59 Morphine Sulfate (Morphine Sulfate) 1 mg PRN Q10MIN PRN IV SEVERE PAIN; Start 02/04/18 at 07:00; Stop 02/05/18 at 06:59 Ringer's Solution 1,000 ml @ 30 mls/hr Q24H IV ; Start 02/04/18 at 07:00; Stop 02/04/18 at 18:59 Lidocaine HCl (Xylocaine-Mpf 1% Vial) 2 ml PRN 1X PRN ID IV START; Start at 07:00; Stop 02/05/18 at 06:59 Prochlorperazine Edisylate (Compazine) 5 mg PACU PRN PRN IV NAUSEA, MRX1; Start 02/04/18 at 07:00; Stop 02/05/18 at 06:59 Furosemide (Lasix) 40 mg 1X ONCE IVP Last administered on 02/04/18at 12:47; Start 02/04/18 at 11:45; Stop 02/04/18 at 11:46; Status DC Sodium Chloride 1,000 ml @ 100 mls/hr Q10H IV Last administered on 02/04/18at 12 :51; Start 02/04/18 at 12:00 Hydralazine HCl (Apresoline Inj) 10 mg PRN Q4HRS PRN IVP ELEVATED BP, SEE COMMENTS; Start 02/04/18 at 12:15 Iohexol (Omnipaque 300 Mg/ml) 100 ml STK-MED ONCE .ROUTE ; Start 02/04/18 at 12: 11; Stop 02/04/18 at 12:12; Status DC Cefazolin Sodium/ Dextrose (Ancef 2gm Premix) 2 gm STK-MED ONCE IV ; Start at 07:00; Stop 02/04/18 at 12:31; Status DC Propofol 20 ml @ As Directed STK-MED ONCE IV ; Start 02/04/18 at 13:50; Stop 02/04 at 13:51; Status DC Lidocaine HCl (Lidocaine Pf 2% Vial) 5 ml STK-MED ONCE .ROUTE ; Start 02/04/18 at 13:50; Stop 02/04/18 at 13:51; Status DC Famotidine (Pepcid Vial) 20 mg STK-MED ONCE .ROUTE ; Start 02/04/18 at 13:50; Stop 02/04/18 at 13:51; Status DC Dexamethasone Sodium Phosphate (Decadron) 20 mg STK-MED ONCE .ROUTE ; Start 02/04 at 13:50; Stop 02/04/18 at 13:52; Status DC Ondansetron HCl (Zofran) 4 mg STK-MED ONCE .ROUTE ; Start 02/04/18 at 13:50; Stop 02/04/18 at 13:52; Status DC Active Scripts Active Reported Ferrous Sulfate 325 Mg Tablet 1 Tab PO DAILY Super B Complex-Vitamin C (B Complex With Vitamin C) 1 Each Tablet 1 Each PO Warfarin Sodium 5 Mg Tablet 7.5 Mg PO QTUTHSA Amiodarone Hcl 200 Mg Tablet 100 Mg PO DAILY Furosemide 20 Mg Tablet 10 Mg PO QMWF Metoprolol Succinate ( Xl ) (Metoprolol Succinate) 25 Mg Tab.er.24h 1 Tab PO QPM Calcitriol 0.25 Mcg Capsule 0.25 Mcg PO QM-W-F Warfarin Sodium 5 Mg Tablet 5 Mg PO QMWF Loratadine 10 Mg Tablet 10 Mg PO QHS Tamsulosin Hcl 0.4 Mg Cap.er.24h 0.4 Mg PO QHS Atorvastatin Calcium 10 Mg Tablet 10 Mg PO HS Duoneb 0.5-3(2.5) Mg/3 Ml (Albuterol/Ipratropium) 3 Ml Ampul.neb 3 Ml IH TID PRN Flonase (Fluticasone Propionate) 16 Gm [place].susp 2 [place] NS BID Vitals/I & O Vital Sign - Last 24 Hours 02/03/18 02/03/18 02/03/18 02/03/18 14:49 15:00 16:00 16:02 Temp 97.9 97.9 Pulse 73 70 Resp 16 20 B/P (MAP) 175/85 (115) 157/73 (101) Pulse Ox 94 94 96 O2 Delivery Nasal Cannula Nasal Cannula Nasal Cannula O2 Flow Rate 2.0 2.0 2.0 02/03/18 02/03/18 02/03/18 02/03/18 19:00 19:46 20:00 20:26 Temp 97.5 97.5 Pulse 78 Resp 20 20 B/P (MAP) 139/60 (86) Pulse Ox 95 96 96 O2 Delivery Nasal Cannula Nasal Cannula Nasal Cannula Nasal Cannula O2 Flow Rate 2.0 2.0 2.0 2.0 02/03/18 02/03/18 02/04/18 02/04/18 22:41 23:00 03:00 04:00 Temp 97.9 98.2 97.9 98.2 Pulse 69 74 Resp 20 18 18 20 B/P (MAP) 145/65 (91) 136/66 (89) Pulse Ox 96 91 94 92 O2 Delivery Nasal Cannula Nasal Cannula Nasal Cannula Nasal Cannula O2 Flow Rate 2.0 2.0 2.0 2.0 02/04/18 02/04/18 02/04/18 02/04/18 04:10 07:00 07:22 09:19 Temp 98.1 98.1 Pulse 69 Resp 18 B/P (MAP) 130/61 (84) Pulse Ox 91 91 O2 Delivery Nasal Cannula Nasal Cannula Nasal Cannula Nasal Cannula O2 Flow Rate 2.0 3.0 2.0 3.0 02/04/18 02/04/18 02/04/18 10:00 11:23 14:06 Temp 98.8 98.8 Pulse 98 Resp 20 Pulse Ox 91 91 O2 Delivery Nasal Cannula Nasal Cannula O2 Flow Rate 3.0 2.0 Intake and Output 02/03/18 02/03/18 02/04/18 15:00 23:00 07:00 Intake Total 1050 ml 200 ml Output Total 10 ml 200 ml 765 ml Balance 1040 ml 0 ml -765 ml Problem List Choledocholithiasis -s/p lap vilma, with apparent COPD exacerbation and/or possible pneumonia, ERCP postponed, CXR ,cpm, and lactic acid ordered BORIS BRIZUELA MD Feb 04, 2018 14:41
--- NOTE | 2018-02-04 14:42 | RAD ---
EXAM: CHEST 1 VIEW History: Shortness of breath COMPARISON: 12/10/2017 TECHNIQUE: Single portable radiograph of the chest FINDINGS: Low lung volumes and technique accentuates heart size and pulmonary vascularity. Mild cardiomegaly.. . Cardiac pacer identified. Minimal bibasilar lung atelectasis or infiltrates. IMPRESSION: 1. Minimal bibasilar lung atelectasis or infiltrates. Electronically signed by: Santino Miner MD (02/04/2018 2:39 PM) [id number]
[2018-02-04 15:26] LABS: HEMATOCRIT 35.5 % (39.0-53.0); HEMOGLOBIN 11.5 g/dL (13.0-17.5); RED BLOOD COUNT 3.64 x10^6/uL (4.30-5.70); RED CELL DISTRIBUTION WIDTH 14.8 % (11.5-14.5); WHITE BLOOD COUNT 24.9 x10^3/uL (4.0-11.0)
--- NOTE | 2018-02-04 16:43 | PDOC2 ---
CONSULT Date of Consult Date of Consult DATE: 02/04/18 TIME: 16:02 Reason for Consult Reason for Consult: Hyperkalemia Referring Physician Referring Physician: Dr. Alanis Identification/Chief Complaint Chief Complaint Short of Breath Source Source: Chart review, Patient History of Present Illness Reason for Visit: Patient is 77-year-old follows with Dr. Harper for CKD , has baseline Creat of 2.1 in December 2017, has moderate COPD. He was recently hospitalized with acute cholecystitis.and underwent drain placement at that time, developed hypercapnic respiratory failure, requiring BiPAP. Hospitalized for laparoscopic cholecystectomy and cholangiogram. Postoperatively, he was having some respiratory distress, cough, mostly nonproductive. He normally wears oxygen at home and a CPAP for obstructive sleep apnea. As per his his drain fell off last night , he was scheduled for ERCP this afternoon but developed Increased SOB, procedure cancelled, he is now on Bipap reports he has been having minimal UOP , doesn't have cedeño and is very dark. Pt denies any dysuria Denies any N/V/D He has chronic AFib. On his labs this am he was found to be Hyperkalemic- he was getting IV 20 KCL with 1/2 NS . Which was dced after K was found to be high Past Medical History Cardiovascular: AFIB, CAD, CHF, HTN, Hyperlipidemia, Other Pulmonary: COPD CENTRAL NERVOUS SYSTEM: Other GI: Constipation Heme/Onc: No pertinent hx Hepatobiliary: No pertinent hx Psych: Anxiety Rheumatologic: No pertinent hx Infectious disease: No pertinent hx Renal/: Chronic renal insuff Endocrine: No pertinent hx Past Surgical History Past Surgical History: Pacemaker, Hernia Repair, Other Family History Family History: Coronary Artery Disease Social History No ALCOHOL: rare Drugs: None Lives: with Family Domestic Violence: Neg Current Medications Current Medications Current Medications Ondansetron HCl (Zofran) 4 mg PRN Q6HRS PRN IV NAUSEA/VOMITING Last administered on 02/04/18at 04:08; Start 02/03/18 at 07:00; Stop 02/04/18 at 06:59; Status DC Fentanyl Citrate (Fentanyl 2ml Vial) 25 mcg PRN Q5MIN PRN IV MILD PAIN Last administered on 02/03/18at 12:13; Start 02/03/18 at 07:00; Stop 02/04/18 at 06:59; Status DC Fentanyl Citrate (Fentanyl 2ml Vial) 50 mcg PRN Q5MIN PRN IV MODERATE TO SEVERE PAIN; Start 02/03/18 at 07:00; Stop 02/04/18 at 06:59; Status DC Morphine Sulfate (Morphine Sulfate) 1 mg PRN Q10MIN PRN IV SEVERE PAIN Last administered on 02/03/18at 11:42; Start 02/03/18 at 07:00; Stop 02/04/18 at 06:59; Status DC Ringer's Solution 1,000 ml @ 30 mls/hr Q24H IV Last administered on 02/03/18at 09:13; Start 02/03/18 at 07:00; Stop 02/03/18 at 18:59; Status DC Lidocaine HCl (Xylocaine-Mpf 1% Vial) 2 ml PRN 1X PRN ID PRIOR TO IV START; Start 02/03/18 at 07:00; Stop 02/04/18 at 06:59; Status DC Prochlorperazine Edisylate (Compazine) 5 mg PACU PRN PRN IV NAUSEA, MRX1; Start 02/03/18 at 07:00; Stop 02/04/18 at 06:59; Status DC Cefazolin Sodium/ Dextrose 50 ml @ 100 mls/hr 1X PREOP PRN IV PRIOR TO SURGERY Last administered on 02/03/18at 09:35; Start 02/03/18 at 08:00 Fentanyl Citrate (Fentanyl 2ml Vial) 100 mcg STK-MED ONCE .ROUTE ; Start at 08:09; Stop 02/03/18 at 08:10; Status DC Rocuronium [place] (Zemuron) 50 mg STK-MED ONCE .ROUTE ; Start 02/03/18 at 08:09 ; Stop 02/03/18 at 08:10; Status DC Desflurane (Suprane) 60 ml STK-MED ONCE IH ; Start 02/03/18 at 08:09; Stop at 08:10; Status DC Dexamethasone Sodium Phosphate (Decadron) 20 mg STK-MED ONCE .ROUTE ; Start 02/03 at 08:09; Stop 02/03/18 at 08:10; Status DC Propofol 20 ml @ As Directed STK-MED ONCE IV ; Start 02/03/18 at 08:09; Stop 02/03 at 08:10; Status DC Lidocaine HCl (Lidocaine Pf 2% Vial) 5 ml STK-MED ONCE .ROUTE ; Start 02/03/18 at 08:09; Stop 02/03/18 at 08:10; Status DC Ondansetron HCl (Zofran) 4 mg STK-MED ONCE .ROUTE ; Start 02/03/18 at 08:09; Stop 02/03/18 at 08:10; Status DC Ketorolac Tromethamine (Toradol For Or Only) 30 mg STK-MED ONCE INJ ; Start 02/03 at 08:09; Stop 02/03/18 at 08:10; Status DC Ephedrine Sulfate (ePHEDrine PF IN SALINE SYRINGE) 50 mg STK-MED ONCE IV ; Start 02/03/18 at 08:15; Stop 02/03/18 at 08:16; Status DC Bupivacaine HCl/ Epinephrine Bitart (Marcaine-Epi 0.5%-[id number]) 50 ml STK-MED ONCE .ROUTE Last administered on 02/03/18at 09:49; Start 02/03/18 at 07:56; Stop 02/03/18 at 08:57; Status DC Iohexol (Omnipaque 300 Mg/ml) 100 ml STK-MED ONCE .ROUTE Last administered on at 09:49; Start 02/03/18 at 07:56; Stop 02/03/18 at 08:58; Status DC Phenylephrine HCl (PHENYLEPHRINE in 0.9% NACL PF) 1 mg STK-MED ONCE IV ; Start 02/03/18 at 09:24; Stop 02/03/18 at 09:25; Status DC Glycopyrrolate (Robinul) 1 mg STK-MED ONCE .ROUTE ; Start 02/03/18 at 09:55; Stop 02/03/18 at 09:56; Status DC Neostigmine Methylsulfate (Neostigmine Methylsulfate) 5 mg STK-MED ONCE .ROUTE ; Start 02/03/18 at 09:55; Stop 02/03/18 at 09:56; Status DC Albuterol Sulfate (Ventolin Neb Soln) 2.5 mg 1X PACU PRN NEB SHORTNESS OF BREATH Last administered on 02/03/18at 10:53; Start 02/03/18 at 11:00 Diphenhydramine HCl (Benadryl) 25 mg PRN Q6HRS PRN PO ITCHING; Start 02/03/18 at 11:00 Diphenhydramine HCl (Benadryl) 25 mg PRN Q6HRS PRN IV ITCHING Last administered on 02/03/18at 13:49; Start 02/03/18 at 11:00 Enoxaparin Sodium (Lovenox 40mg Syringe) 40 mg Q24H SQ ; Start 02/03/18 at 11:00 ; Status Cancel Sodium Chloride (Normal Saline Flush) 3 ml QSHIFT PRN IV AFTER MEDS AND BLOOD DRAWS; Start 02/03/18 at 11:00 Potassium Chloride/Sodium Chloride 1,000 ml @ 75 mls/hr [id number] IV Last administered on 02/03/18at 23:55; Start 02/03/18 at 10:46; Stop 02/04/18 at 11:37; Status DC Dextrose (Dextrose 50%-Water Syringe) 12.5 gm PRN Q15MIN PRN IV SEE COMMENTS; Start 02/03/18 at 11:00 Oxycodone/ Acetaminophen (Percocet 5/325) 1 tab PRN Q4HRS PRN PO MILD PAIN, 1ST CHOICE Last administered on 02/03/18at 22:41; Start 02/03/18 at 11:00 Oxycodone/ Acetaminophen (Percocet 5/325) 2 tab PRN Q4HRS PRN PO MODERATE PAIN , SEVERE PAIN; Start 02/03/18 at 11:00 Morphine Sulfate (Morphine Sulfate) 5 mg PRN Q3HRS PRN IV MODERATE TO SEVERE PAIN Last administered on 02/04/18at 09:19; Start 02/03/18 at 11:15 Docusate Sodium (Colace) 100 mg BID PO Last administered on 02/03/18at 21:07; Start 02/03/18 at 11:00 Ondansetron HCl (Zofran) 4 mg PRN Q6HRS PRN IV NAUESA, 1ST CHOICE Last administered on 02/04/18at 09:09; Start 02/03/18 at 11:00 Enoxaparin Sodium (Lovenox 40mg Syringe) 40 mg Q24H SQ ; Start 02/04/18 at 09:00 ; Stop 02/04/18 at 09:00; Status DC Hydralazine HCl (Apresoline Inj) 10 mg 1X PACU PRN IVP ELEVATED BP, SEE COMMENTS; Start 02/03/18 at 12:15; Stop 02/03/18 at 20:00; Status DC Oxycodone/ Acetaminophen (Percocet 5/325) 1 tab 1X PACU PRN PO PAIN Last administered on 02/03/18at 12:20; Start 02/03/18 at 12:15; Stop 02/03/18 at 20:00; Status DC Albuterol Sulfate (Ventolin Neb Soln) 2.5 mg PRN Q2HR PRN NEB DYSPNEA Last administered on 02/04/18at 04:11; Start 02/03/18 at 15:00 Albuterol/ Ipratropium (Duoneb) 3 ml RTQID NEB Last administered on 02/04/18at 15 :11; Start 02/03/18 at 16:00 Ondansetron HCl (Zofran) 4 mg PRN Q6HRS PRN IV NAUSEA/VOMITING; Start 02/04/18 at 07:00; Stop 02/05/18 at 06:59 Fentanyl Citrate (Fentanyl 2ml Vial) 25 mcg PRN Q5MIN PRN IV MILD PAIN; Start 02/04/18 at 07:00; Stop 02/05/18 at 06:59 Fentanyl Citrate (Fentanyl 2ml Vial) 50 mcg PRN Q5MIN PRN IV MODERATE TO SEVERE PAIN; Start 02/04/18 at 07:00; Stop 02/05/18 at 06:59 Morphine Sulfate (Morphine Sulfate) 1 mg PRN Q10MIN PRN IV SEVERE PAIN; Start 02/04/18 at 07:00; Stop 02/05/18 at 06:59 Ringer's Solution 1,000 ml @ 30 mls/hr Q24H IV ; Start 02/04/18 at 07:00; Stop 02/04/18 at 18:59 Lidocaine HCl (Xylocaine-Mpf 1% Vial) 2 ml PRN 1X PRN ID IV START; Start at 07:00; Stop 02/05/18 at 06:59 Prochlorperazine Edisylate (Compazine) 5 mg PACU PRN PRN IV NAUSEA, MRX1; Start 02/04/18 at 07:00; Stop 02/05/18 at 06:59 Furosemide (Lasix) 40 mg 1X ONCE IVP Last administered on 02/04/18at 12:47; Start 02/04/18 at 11:45; Stop 02/04/18 at 11:46; Status DC Sodium Chloride 1,000 ml @ 100 mls/hr Q10H IV Last administered on 02/04/18at 12 :51; Start 02/04/18 at 12:00 Hydralazine HCl (Apresoline Inj) 10 mg PRN Q4HRS PRN IVP ELEVATED BP, SEE COMMENTS; Start 02/04/18 at 12:15 Iohexol (Omnipaque 300 Mg/ml) 100 ml STK-MED ONCE .ROUTE ; Start 02/04/18 at 12: 11; Stop 02/04/18 at 12:12; Status DC Cefazolin Sodium/ Dextrose (Ancef 2gm Premix) 2 gm STK-MED ONCE IV ; Start at 07:00; Stop 02/04/18 at 12:31; Status DC Propofol 0 ml @ As Directed STK-MED ONCE IV ; Start 02/04/18 at 13:50; Stop at 13:51; Status DC Lidocaine HCl (Lidocaine Pf 2% Vial) 5 ml STK-MED ONCE .ROUTE ; Start 02/04/18 at 13:50; Stop 02/04/18 at 13:51; Status DC Famotidine (Pepcid Vial) 20 mg STK-MED ONCE .ROUTE ; Start 02/04/18 at 13:50; Stop 02/04/18 at 13:51; Status DC Dexamethasone Sodium Phosphate (Decadron) 20 mg STK-MED ONCE .ROUTE ; Start 02/04 at 13:50; Stop 02/04/18 at 13:52; Status DC Ondansetron HCl (Zofran) 4 mg STK-MED ONCE .ROUTE ; Start 02/04/18 at 13:50; Stop 02/04/18 at 13:52; Status DC Lorazepam (Ativan) 0.5 mg PRN Q8HRS PRN PO ANXIETY / AGITATION; Start 02/04/18 at 15:15 Active Scripts Active Reported Ferrous Sulfate 325 Mg Tablet 1 Tab PO DAILY Super B Complex-Vitamin C (B Complex With Vitamin C) 1 Each Tablet 1 Each PO Warfarin Sodium 5 Mg Tablet 7.5 Mg PO QTUTHSA Amiodarone Hcl 200 Mg Tablet 100 Mg PO DAILY Furosemide 20 Mg Tablet 10 Mg PO QMWF Metoprolol Succinate ( Xl ) (Metoprolol Succinate) 25 Mg Tab.er.24h 1 Tab PO QPM Calcitriol 0.25 Mcg Capsule 0.25 Mcg PO QM-W-F Warfarin Sodium 5 Mg Tablet 5 Mg PO QMWF Loratadine 10 Mg Tablet 10 Mg PO QHS Tamsulosin Hcl 0.4 Mg Cap.er.24h 0.4 Mg PO QHS Atorvastatin Calcium 10 Mg Tablet 10 Mg PO HS Duoneb 0.5-3(2.5) Mg/3 Ml (Albuterol/Ipratropium) 3 Ml Ampul.neb 3 Ml IH TID PRN Flonase (Fluticasone Propionate) 16 Gm [place].susp 2 [place] NS BID Allergies Allergies: Coded Allergies: No Known Drug Allergies (Unverified , 02/03/18) ROS Review of System As per HPI Physical Exam Physical Exam GEN: On Bipap, Resp distress+ HEENT-On Bipap neck- supple LUNGS: CTAB ant HEART: RRR, no murmurs ABD: +TTP RUQ, obese EXTREMITY: No edema SKIN: No rashes, NEURO/PSYCH: A & O 3 - no Cedeño Vital Signs Vital Signs Date Time Temp Pulse Resp B/P (MAP) Pulse Ox O2 Delivery O2 Flow Rate FiO2 02/04/18 15:13 94 BiPAP/CPAP 02/04/18 15:11 2.0 02/04/18 15:00 98.4 109 22 143/61 (88) 98.4 Assessment & Plan Hyperkalemia- Was receiving IV KCL with IVF Bicarb Normal, Renal function at his baseline Repeat K 6, recd 20 IV lasix this am, will repeat 40 mg x 1 Monitor CKD stage 3 His baseline Creat has been 1.5 to 2.3 Currently his renal function is at baseline As per Hx Decreased UOP, Ordered Bladder scan, as per RN 20ccs Cedeño for strict of I/O COPD /RE- Resp disttress+ On Bipap - Pulm folowing Afib- chronic- cardiology on board Symptomatic cholelithiasis: S/P Lap vilma, POD#1. ERCP for CBD stone cancelled due to Hypotension and Resp distress Discussed with RN and pt's at bedside Labs Labs Laboratory Tests Test 02/03/18 09:06 02/04/18 09:25 02/04/18 12:50 02/04/18 15:00 Prothrombin Time 14.4 SEC (11.7-14.0) Prothromb Time International Ratio 1.2 (0.8-1.1) Activated Partial Thromboplast Time 32 SEC (24-38) Sodium Level 135 mmol/L (136-145) 136 mmol/L (136-145) Potassium Level 6.1 mmol/L (3.5-5.1) 6.0 mmol/L (3.5-5.1) Chloride Level 104 mmol/L (98-107) 104 mmol/L (98-107) Carbon Dioxide Level 25 mmol/L (21-32) 27 mmol/L (21-32) Anion Gap 6 (6-14) 5 (6-14) Blood Urea Nitrogen 53 mg/dL (8-26) 57 mg/dL (8-26) Creatinine 2.1 mg/dL (0.7-1.3) 2.3 mg/dL (0.7-1.3) Estimated GFR (Cockcroft-Gault) 30.9 27.8 Glucose Level 125 mg/dL (70-99) 125 mg/dL (70-99) Calcium Level 10.3 mg/dL (8.5-10.1) 11.0 mg/dL (8.5-10.1) Total Bilirubin 2.0 mg/dL (0.2-1.0) Direct Bilirubin 0.5 mg/dL (0.0-0.2) Aspartate Amino Transf (AST/SGOT) 30 U/L (15-37) Alanine Aminotransferase (ALT/SGPT) 27 U/L (16-63) Alkaline Phosphatase 74 U/L (46-116) Total Protein 7.1 g/dL (6.4-8.2) Albumin 3.1 g/dL (3.4-5.0) Lactic Acid Level 3.1 mmol/L (0.4-2.0) Test 02/04/18 15:15 White Blood Count 24.9 x10^3/uL (4.0-11.0) Red Blood Count 3.64 x10^6/uL (4.30-5.70) Hemoglobin 11.5 g/dL (13.0-17.5) Hematocrit 35.5 % (39.0-53.0) Mean Corpuscular Volume 98 fL (79-100) Mean Corpuscular Hemoglobin 32 pg (25-35) Mean Corpuscular Hemoglobin Concent 32 g/dL (31-37) Red Cell Distribution Width 14.8 % (11.5-14.5) Platelet Count 184 x10^3/uL (140-400) Laboratory Tests Test 02/04/18 09:25 02/04/18 12:50 02/04/18 15:00 02/04/18 15:15 Sodium Level 135 mmol/L (136-145) 136 mmol/L (136-145) Potassium Level 6.1 mmol/L (3.5-5.1) 6.0 mmol/L (3.5-5.1) Chloride Level 104 mmol/L (98-107) 104 mmol/L (98-107) Carbon Dioxide Level 25 mmol/L (21-32) 27 mmol/L (21-32) Anion Gap 6 (6-14) 5 (6-14) Blood Urea Nitrogen 53 mg/dL (8-26) 57 mg/dL (8-26) Creatinine 2.1 mg/dL (0.7-1.3) 2.3 mg/dL (0.7-1.3) Estimated GFR (Cockcroft-Gault) 30.9 27.8 Glucose Level 125 mg/dL (70-99) 125 mg/dL (70-99) Calcium Level 10.3 mg/dL (8.5-10.1) 11.0 mg/dL (8.5-10.1) Total Bilirubin 2.0 mg/dL (0.2-1.0) Direct Bilirubin 0.5 mg/dL (0.0-0.2) Aspartate Amino Transf (AST/SGOT) 30 U/L (15-37) Alanine Aminotransferase (ALT/SGPT) 27 U/L (16-63) Alkaline Phosphatase 74 U/L (46-116) Total Protein 7.1 g/dL (6.4-8.2) Albumin 3.1 g/dL (3.4-5.0) Lactic Acid Level 3.1 mmol/L (0.4-2.0) White Blood Count 24.9 x10^3/uL (4.0-11.0) Red Blood Count 3.64 x10^6/uL (4.30-5.70) Hemoglobin 11.5 g/dL (13.0-17.5) Hematocrit 35.5 % (39.0-53.0) Mean Corpuscular Volume 98 fL (79-100) Mean Corpuscular Hemoglobin 32 pg (25-35) Mean Corpuscular Hemoglobin Concent 32 g/dL (31-37) Red Cell Distribution Width 14.8 % (11.5-14.5) Platelet Count 184 x10^3/uL (140-400) Review All relevant outside records, renal labs, imaging studies, telemetry/EKG's were reviewed. Images Images CHEST 1 VIEW History: Shortness of breath COMPARISON: 12/10/2017 TECHNIQUE: Single portable radiograph of the chest FINDINGS: Low lung volumes and technique accentuates heart size and pulmonary vascularity. Mild cardiomegaly.. . Cardiac pacer identified. Minimal bibasilar lung atelectasis or infiltrates. IMPRESSION: 1. Minimal bibasilar lung atelectasis or infiltrates. KIERSTEN BRODERICK MD Feb 04, 2018 16:42
[2018-02-04 16:56] LABS: BASE EXCESS ABG -4 mmol/L (-3-3); HCO3 ABG 23 mmol/L (21-28); PCO2 ABG 47 mmHg (35-46); PO2 ABG 66 mmHg (65-108); SAT O2 ABG 92 % (92-99)
[2018-02-04 17:03] LABS: FIO2 ABG 45
[2018-02-04] MEDS: CIPROFLOXACIN 400MG PREMIX 200 ML IV SCH ×2 (17:30→17:55)
--- NOTE | 2018-02-04 17:37 | PDOC ---
Provider Note Provider Note SURG still fighting nausea, emesis d/w Dr Agrawal add reglan move to ICU when gets back WES JOYCE MD Feb 04, 2018 17:37
[2018-02-04] MEDS: METOCLOPRAMIDE HCL 10 MG/2 ML VIAL. IV PRN (18:35)
[2018-02-04 21:48] LABS: BASO # 0.1 x10^3/uL (0.0-0.2); BASO % 0 % (0-3); EOS % 0 % (0-3); HEMATOCRIT 33.6 % (39.0-53.0); HEMOGLOBIN 10.9 g/dL (13.0-17.5); LYMPH # 0.5 x10^3/uL (1.0-4.8); LYMPH % 2 % (24-48); MEAN CORPUSCULAR HEMOGLOBIN 31 pg (25-35); MEAN CORPUSCULAR HGB CONC 33 g/dL (31-37); MEAN CORPUSCULAR VOLUME 97 fL (79-100); MONO # 2.1 x10^3/uL (0.0-1.1); MONO % 8 % (0-9); NEUT # 22.7 x10^3uL (1.8-7.7); NEUT % 89 % (31-73); PLATELET COUNT 155 x10^3/uL (140-400); RED BLOOD COUNT 3.48 x10^6/uL (4.30-5.70); RED CELL DISTRIBUTION WIDTH 15.1 % (11.5-14.5); WHITE BLOOD COUNT 25.5 x10^3/uL (4.0-11.0)
[2018-02-04 21:57] LABS: CALCIUM 10.3 mg/dL (8.5-10.1); CREATININE 3.4 mg/dL (0.7-1.3); GFR 17.7; POTASSIUM 5.9 mmol/L (3.5-5.1)
[2018-02-04] MEDS ORDERED: ACETAMINOPHEN 500 MG TABLET PO PRN (22:15)
[2018-02-04 22:20] LABS: % BANDS 2 % (0-9); % LYMPHS 3 % (24-48); % MONOS 5 % (0-10); % SEGS 90 % (35-66); PLT ESTIMATE ADEQUATE (ADEQUATE)
[2018-02-05] VITALS (25 sets, daily range): BP systolic 100–169; BP diastolic 52–81
[2018-02-05] MEDS ORDERED: FUROSEMIDE 40 MG/4 ML VIAL. IVP ONE (01:30)
[2018-02-05] MEDS: METOCLOPRAMIDE HCL 10 MG/2 ML VIAL. IV PRN ×3 (02:08→13:05)
[2018-02-05] MEDS: IV NORMAL SALINE 1000ML BAG 1,000 ML IV SCH ×3 (02:08→21:05)
[2018-02-05] MEDS: MORPHINE SULFATE 10 MG/ML VIAL. IV PRN (04:22)
[2018-02-05 05:24] LABS: BASO # 0.1 x10^3/uL (0.0-0.2); BASO % 0 % (0-3); EOS % 0 % (0-3); HEMATOCRIT 31.4 % (39.0-53.0); HEMOGLOBIN 10.3 g/dL (13.0-17.5); LYMPH # 0.5 x10^3/uL (1.0-4.8); LYMPH % 2 % (24-48); MEAN CORPUSCULAR HEMOGLOBIN 32 pg (25-35); MEAN CORPUSCULAR HGB CONC 33 g/dL (31-37); MEAN CORPUSCULAR VOLUME 97 fL (79-100); MONO # 1.7 x10^3/uL (0.0-1.1); MONO % 7 % (0-9); NEUT # 22.4 x10^3uL (1.8-7.7); NEUT % 91 % (31-73); PLATELET COUNT 134 x10^3/uL (140-400); RED BLOOD COUNT 3.25 x10^6/uL (4.30-5.70); RED CELL DISTRIBUTION WIDTH 14.8 % (11.5-14.5); WHITE BLOOD COUNT 24.7 x10^3/uL (4.0-11.0)
[2018-02-05 05:57] LABS: ALBUMIN 2.8 g/dL (3.4-5.0); ALBUMIN/GLOBULIN RATIO 0.8 (1.0-1.7); CALCIUM 10.4 mg/dL (8.5-10.1); CREATININE 3.6 mg/dL (0.7-1.3); GFR 16.6; POTASSIUM 5.7 mmol/L (3.5-5.1); TOTAL BILIRUBIN 3.4 mg/dL (0.2-1.0); TOTAL PROTEIN 6.5 g/dL (6.4-8.2)
[2018-02-05] MEDS: IPRATRPIUM/ALBUTEROL 0.5/2.5MG 3 ML NEBU. NEB SCH ×4 (07:48→19:31)
--- NOTE | 2018-02-05 07:48 | PDOC ---
Jaxson I PROGRESS NOTE Reason for Follow-up Discussed critical stauts of patient with spouse with multi-organ involvement with sepsis and likely cholangitis with retained CBD stone. Risks of inteventinos are increased with ERCp but without drainage procedure and/or stent placement, patient at greater risk of . Patient and spouse are willing to proceed today with mechincal ventilation/intubation ands possible prolonged stay in ICU on ventilator after procedure. Review of Relevant I have reviewed the following items aron (where applicable) has been applied. Labs Laboratory Tests Test 02/03/18 09:06 02/04/18 09:25 02/04/18 12:50 02/04/18 15:00 Prothrombin Time 14.4 SEC (11.7-14.0) Prothromb Time International Ratio 1.2 (0.8-1.1) Activated Partial Thromboplast Time 32 SEC (24-38) Sodium Level 135 mmol/L (136-145) 136 mmol/L (136-145) Potassium Level 6.1 mmol/L (3.5-5.1) 6.0 mmol/L (3.5-5.1) 6.0 mmol/L (3.5-5.1) Chloride Level 104 mmol/L (98-107) 104 mmol/L (98-107) Carbon Dioxide Level 25 mmol/L (21-32) 27 mmol/L (21-32) Anion Gap 6 (6-14) 5 (6-14) Blood Urea Nitrogen 53 mg/dL (8-26) 57 mg/dL (8-26) Creatinine 2.1 mg/dL (0.7-1.3) 2.3 mg/dL (0.7-1.3) Estimated GFR (Cockcroft-Gault) 30.9 27.8 Glucose Level 125 mg/dL (70-99) 125 mg/dL (70-99) Calcium Level 10.3 mg/dL (8.5-10.1) 11.0 mg/dL (8.5-10.1) Total Bilirubin 2.0 mg/dL (0.2-1.0) Direct Bilirubin 0.5 mg/dL (0.0-0.2) Aspartate Amino Transf (AST/SGOT) 30 U/L (15-37) Alanine Aminotransferase (ALT/SGPT) 27 U/L (16-63) Alkaline Phosphatase 74 U/L (46-116) Total Protein 7.1 g/dL (6.4-8.2) Albumin 3.1 g/dL (3.4-5.0) Lactic Acid Level 3.1 mmol/L (0.4-2.0) Test 02/04/18 15:15 02/04/18 15:51 02/04/18 21:20 02/05/18 04:00 White Blood Count 24.9 x10^3/uL (4.0-11.0) 25.5 x10^3/uL (4.0-11.0) 24.7 x10^3/uL (4.0-11.0) Red Blood Count 3.64 x10^6/uL (4.30-5.70) 3.48 x10^6/uL (4.30-5.70) 3.25 x10^6/uL (4.30-5.70) Hemoglobin 11.5 g/dL (13.0-17.5) 10.9 g/dL (13.0-17.5) 10.3 g/dL (13.0-17.5) Hematocrit 35.5 % (39.0-53.0) 33.6 % (39.0-53.0) 31.4 % (39.0-53.0) Mean Corpuscular Volume 98 fL (79-100) 97 fL (79-100) 97 fL (79-100) Mean Corpuscular Hemoglobin 32 pg (25-35) 31 pg (25-35) 32 pg (25-35) Mean Corpuscular Hemoglobin Concent 32 g/dL (31-37) 33 g/dL (31-37) 33 g/dL (31-37) Red Cell Distribution Width 14.8 % (11.5-14.5) 15.1 % (11.5-14.5) 14.8 % (11.5-14.5) Platelet Count 184 x10^3/uL (140-400) 155 x10^3/uL (140-400) 134 x10^3/uL (140-400) O2 Saturation 92 % (92-99) Arterial Blood pH 7.31 (7.35-7.45) Arterial Blood pCO2 at Patient Temp 47 mmHg (35-46) Arterial Blood pO2 at Patient Temp 66 mmHg (65-108) Arterial Blood HCO3 23 mmol/L (21-28) Arterial Blood Base Excess -4 mmol/L (-3-3) FiO2 45 Neutrophils (%) (Auto) 89 % (31-73) 91 % (31-73) Lymphocytes (%) (Auto) 2 % (24-48) 2 % (24-48) Monocytes (%) (Auto) 8 % (0-9) 7 % (0-9) Eosinophils (%) (Auto) 0 % (0-3) 0 % (0-3) Basophils (%) (Auto) 0 % (0-3) 0 % (0-3) Neutrophils # (Auto) 22.7 x10^3uL (1.8-7.7) 22.4 x10^3uL (1.8-7.7) Lymphocytes # (Auto) 0.5 x10^3/uL (1.0-4.8) 0.5 x10^3/uL (1.0-4.8) Monocytes # (Auto) 2.1 x10^3/uL (0.0-1.1) 1.7 x10^3/uL (0.0-1.1) Eosinophils # (Auto) 0.0 x10^3/uL (0.0-0.7) 0.0 x10^3/uL (0.0-0.7) Basophils # (Auto) 0.1 x10^3/uL (0.0-0.2) 0.1 x10^3/uL (0.0-0.2) Segmented Neutrophils % 90 % (35-66) Band Neutrophils % 2 % (0-9) Lymphocytes % 3 % (24-48) Monocytes % 5 % (0-10) Platelet Estimate Adequate (ADEQUATE) Sodium Level 134 mmol/L (136-145) 135 mmol/L (136-145) Potassium Level 5.9 mmol/L (3.5-5.1) 5.7 mmol/L (3.5-5.1) Chloride Level 103 mmol/L (98-107) 103 mmol/L (98-107) Carbon Dioxide Level 26 mmol/L (21-32) 24 mmol/L (21-32) Anion Gap 5 (6-14) 8 (6-14) Blood Urea Nitrogen 64 mg/dL (8-26) 72 mg/dL (8-26) Creatinine 3.4 mg/dL (0.7-1.3) 3.6 mg/dL (0.7-1.3) Estimated GFR (Cockcroft-Gault) 17.7 16.6 Glucose Level 117 mg/dL (70-99) 109 mg/dL (70-99) Lactic Acid Level 1.5 mmol/L (0.4-2.0) Calcium Level 10.3 mg/dL (8.5-10.1) 10.4 mg/dL (8.5-10.1) BUN/Creatinine Ratio 20 (6-20) Total Bilirubin 3.4 mg/dL (0.2-1.0) Aspartate Amino Transf (AST/SGOT) 18 U/L (15-37) Alanine Aminotransferase (ALT/SGPT) 14 U/L (16-63) Alkaline Phosphatase 68 U/L (46-116) Total Protein 6.5 g/dL (6.4-8.2) Albumin 2.8 g/dL (3.4-5.0) Albumin/Globulin Ratio 0.8 (1.0-1.7) Amylase Level 33 U/L (25-115) Lipase 70 U/L (73-393) Laboratory Tests Test 02/04/18 09:25 02/04/18 12:50 02/04/18 15:00 02/04/18 15:15 Sodium Level 135 mmol/L (136-145) 136 mmol/L (136-145) Potassium Level 6.1 mmol/L (3.5-5.1) 6.0 mmol/L (3.5-5.1) 6.0 mmol/L (3.5-5.1) Chloride Level 104 mmol/L (98-107) 104 mmol/L (98-107) Carbon Dioxide Level 25 mmol/L (21-32) 27 mmol/L (21-32) Anion Gap 6 (6-14) 5 (6-14) Blood Urea Nitrogen 53 mg/dL (8-26) 57 mg/dL (8-26) Creatinine 2.1 mg/dL (0.7-1.3) 2.3 mg/dL (0.7-1.3) Estimated GFR (Cockcroft-Gault) 30.9 27.8 Glucose Level 125 mg/dL (70-99) 125 mg/dL (70-99) Calcium Level 10.3 mg/dL (8.5-10.1) 11.0 mg/dL (8.5-10.1) Total Bilirubin 2.0 mg/dL (0.2-1.0) Direct Bilirubin 0.5 mg/dL (0.0-0.2) Aspartate Amino Transf (AST/SGOT) 30 U/L (15-37) Alanine Aminotransferase (ALT/SGPT) 27 U/L (16-63) Alkaline Phosphatase 74 U/L (46-116) Total Protein 7.1 g/dL (6.4-8.2) Albumin 3.1 g/dL (3.4-5.0) Lactic Acid Level 3.1 mmol/L (0.4-2.0) White Blood Count 24.9 x10^3/uL (4.0-11.0) Red Blood Count 3.64 x10^6/uL (4.30-5.70) Hemoglobin 11.5 g/dL (13.0-17.5) Hematocrit 35.5 % (39.0-53.0) Mean Corpuscular Volume 98 fL (79-100) Mean Corpuscular Hemoglobin 32 pg (25-35) Mean Corpuscular Hemoglobin Concent 32 g/dL (31-37) Red Cell Distribution Width 14.8 % (11.5-14.5) Platelet Count 184 x10^3/uL (140-400) Test 02/04/18 15:51 02/04/18 21:20 02/05/18 04:00 O2 Saturation 92 % (92-99) Arterial Blood pH 7.31 (7.35-7.45) Arterial Blood pCO2 at Patient Temp 47 mmHg (35-46) Arterial Blood pO2 at Patient Temp 66 mmHg (65-108) Arterial Blood HCO3 23 mmol/L (21-28) Arterial Blood Base Excess -4 mmol/L (-3-3) FiO2 45 White Blood Count 25.5 x10^3/uL (4.0-11.0) 24.7 x10^3/uL (4.0-11.0) Red Blood Count 3.48 x10^6/uL (4.30-5.70) 3.25 x10^6/uL (4.30-5.70) Hemoglobin 10.9 g/dL (13.0-17.5) 10.3 g/dL (13.0-17.5) Hematocrit 33.6 % (39.0-53.0) 31.4 % (39.0-53.0) Mean Corpuscular Volume 97 fL (79-100) 97 fL (79-100) Mean Corpuscular Hemoglobin 31 pg (25-35) 32 pg (25-35) Mean Corpuscular Hemoglobin Concent 33 g/dL (31-37) 33 g/dL (31-37) Red Cell Distribution Width 15.1 % (11.5-14.5) 14.8 % (11.5-14.5) Platelet Count 155 x10^3/uL (140-400) 134 x10^3/uL (140-400) Neutrophils (%) (Auto) 89 % (31-73) 91 % (31-73) Lymphocytes (%) (Auto) 2 % (24-48) 2 % (24-48) Monocytes (%) (Auto) 8 % (0-9) 7 % (0-9) Eosinophils (%) (Auto) 0 % (0-3) 0 % (0-3) Basophils (%) (Auto) 0 % (0-3) 0 % (0-3) Neutrophils # (Auto) 22.7 x10^3uL (1.8-7.7) 22.4 x10^3uL (1.8-7.7) Lymphocytes # (Auto) 0.5 x10^3/uL (1.0-4.8) 0.5 x10^3/uL (1.0-4.8) Monocytes # (Auto) 2.1 x10^3/uL (0.0-1.1) 1.7 x10^3/uL (0.0-1.1) Eosinophils # (Auto) 0.0 x10^3/uL (0.0-0.7) 0.0 x10^3/uL (0.0-0.7) Basophils # (Auto) 0.1 x10^3/uL (0.0-0.2) 0.1 x10^3/uL (0.0-0.2) Segmented Neutrophils % 90 % (35-66) Band Neutrophils % 2 % (0-9) Lymphocytes % 3 % (24-48) Monocytes % 5 % (0-10) Platelet Estimate Adequate (ADEQUATE) Sodium Level 134 mmol/L (136-145) 135 mmol/L (136-145) Potassium Level 5.9 mmol/L (3.5-5.1) 5.7 mmol/L (3.5-5.1) Chloride Level 103 mmol/L (98-107) 103 mmol/L (98-107) Carbon Dioxide Level 26 mmol/L (21-32) 24 mmol/L (21-32) Anion Gap 5 (6-14) 8 (6-14) Blood Urea Nitrogen 64 mg/dL (8-26) 72 mg/dL (8-26) Creatinine 3.4 mg/dL (0.7-1.3) 3.6 mg/dL (0.7-1.3) Estimated GFR (Cockcroft-Gault) 17.7 16.6 Glucose Level 117 mg/dL (70-99) 109 mg/dL (70-99) Lactic Acid Level 1.5 mmol/L (0.4-2.0) Calcium Level 10.3 mg/dL (8.5-10.1) 10.4 mg/dL (8.5-10.1) BUN/Creatinine Ratio 20 (6-20) Total Bilirubin 3.4 mg/dL (0.2-1.0) Aspartate Amino Transf (AST/SGOT) 18 U/L (15-37) Alanine Aminotransferase (ALT/SGPT) 14 U/L (16-63) Alkaline Phosphatase 68 U/L (46-116) Total Protein 6.5 g/dL (6.4-8.2) Albumin 2.8 g/dL (3.4-5.0) Albumin/Globulin Ratio 0.8 (1.0-1.7) Amylase Level 33 U/L (25-115) Lipase 70 U/L (73-393) Medications Current Medications Ondansetron HCl (Zofran) 4 mg PRN Q6HRS PRN IV NAUSEA/VOMITING Last administered on 02/04/18at 04:08; Start 02/03/18 at 07:00; Stop 02/04/18 at 06:59; Status DC Fentanyl Citrate (Fentanyl 2ml Vial) 25 mcg PRN Q5MIN PRN IV MILD PAIN Last administered on 02/03/18at 12:13; Start 02/03/18 at 07:00; Stop 02/04/18 at 06:59; Status DC Fentanyl Citrate (Fentanyl 2ml Vial) 50 mcg PRN Q5MIN PRN IV MODERATE TO SEVERE PAIN; Start 02/03/18 at 07:00; Stop 02/04/18 at 06:59; Status DC Morphine Sulfate (Morphine Sulfate) 1 mg PRN Q10MIN PRN IV SEVERE PAIN Last administered on 02/03/18at 11:42; Start 02/03/18 at 07:00; Stop 02/04/18 at 06:59; Status DC Ringer's Solution 1,000 ml @ 30 mls/hr Q24H IV Last administered on 02/03/18at 09:13; Start 02/03/18 at 07:00; Stop 02/03/18 at 18:59; Status DC Lidocaine HCl (Xylocaine-Mpf 1% Vial) 2 ml PRN 1X PRN ID PRIOR TO IV START; Start 02/03/18 at 07:00; Stop 02/04/18 at 06:59; Status DC Prochlorperazine Edisylate (Compazine) 5 mg PACU PRN PRN IV NAUSEA, MRX1; Start 02/03/18 at 07:00; Stop 02/04/18 at 06:59; Status DC Cefazolin Sodium/ Dextrose 50 ml @ 100 mls/hr 1X PREOP PRN IV PRIOR TO SURGERY Last administered on 02/03/18at 09:35; Start 02/03/18 at 08:00 Fentanyl Citrate (Fentanyl 2ml Vial) 100 mcg STK-MED ONCE .ROUTE ; Start at 08:09; Stop 02/03/18 at 08:10; Status DC Rocuronium [place] (Zemuron) 50 mg STK-MED ONCE .ROUTE ; Start 02/03/18 at 08:09 ; Stop 02/03/18 at 08:10; Status DC Desflurane (Suprane) 60 ml STK-MED ONCE IH ; Start 02/03/18 at 08:09; Stop at 08:10; Status DC Dexamethasone Sodium Phosphate (Decadron) 20 mg STK-MED ONCE .ROUTE ; Start 02/03 at 08:09; Stop 02/03/18 at 08:10; Status DC Propofol 20 ml @ As Directed STK-MED ONCE IV ; Start 02/03/18 at 08:09; Stop 02/03 at 08:10; Status DC Lidocaine HCl (Lidocaine Pf 2% Vial) 5 ml STK-MED ONCE .ROUTE ; Start 02/03/18 at 08:09; Stop 02/03/18 at 08:10; Status DC Ondansetron HCl (Zofran) 4 mg STK-MED ONCE .ROUTE ; Start 02/03/18 at 08:09; Stop 02/03/18 at 08:10; Status DC Ketorolac Tromethamine (Toradol For Or Only) 30 mg STK-MED ONCE INJ ; Start 02/03 at 08:09; Stop 02/03/18 at 08:10; Status DC Ephedrine Sulfate (ePHEDrine PF IN SALINE SYRINGE) 50 mg STK-MED ONCE IV ; Start 02/03/18 at 08:15; Stop 02/03/18 at 08:16; Status DC Bupivacaine HCl/ Epinephrine Bitart (Marcaine-Epi 0.5%-1:[id number]) 50 ml STK-MED ONCE .ROUTE Last administered on 02/03/18at 09:49; Start 02/03/18 at 07:56; Stop 02/03/18 at 08:57; Status DC Iohexol (Omnipaque 300 Mg/ml) 100 ml STK-MED ONCE .ROUTE Last administered on at 09:49; Start 02/03/18 at 07:56; Stop 02/03/18 at 08:58; Status DC Phenylephrine HCl (PHENYLEPHRINE in 0.9% NACL PF) 1 mg STK-MED ONCE IV ; Start 02/03/18 at 09:24; Stop 02/03/18 at 09:25; Status DC Glycopyrrolate (Robinul) 1 mg STK-MED ONCE .ROUTE ; Start 02/03/18 at 09:55; Stop 02/03/18 at 09:56; Status DC Neostigmine Methylsulfate (Neostigmine Methylsulfate) 5 mg STK-MED ONCE .ROUTE ; Start 02/03/18 at 09:55; Stop 02/03/18 at 09:56; Status DC Albuterol Sulfate (Ventolin Neb Soln) 2.5 mg 1X PACU PRN NEB SHORTNESS OF BREATH Last administered on 02/03/18at 10:53; Start 02/03/18 at 11:00; Stop at 17:39; Status DC Diphenhydramine HCl (Benadryl) 25 mg PRN Q6HRS PRN PO ITCHING; Start 02/03/18 at 11:00 Diphenhydramine HCl (Benadryl) 25 mg PRN Q6HRS PRN IV ITCHING Last administered on 02/03/18at 13:49; Start 02/03/18 at 11:00 Enoxaparin Sodium (Lovenox 40mg Syringe) 40 mg Q24H SQ ; Start 02/03/18 at 11:00 ; Status Cancel Sodium Chloride (Normal Saline Flush) 3 ml QSHIFT PRN IV AFTER MEDS AND BLOOD DRAWS; Start 02/03/18 at 11:00 Potassium Chloride/Sodium Chloride 1,000 ml @ 75 mls/hr [id number] IV Last administered on 02/03/18at 23:55; Start 02/03/18 at 10:46; Stop 02/04/18 at 11:37; Status DC Dextrose (Dextrose 50%-Water Syringe) 12.5 gm PRN Q15MIN PRN IV SEE COMMENTS; Start 02/03/18 at 11:00 Oxycodone/ Acetaminophen (Percocet 5/325) 1 tab PRN Q4HRS PRN PO MILD PAIN, 1ST CHOICE Last administered on 02/03/18at 22:41; Start 02/03/18 at 11:00 Oxycodone/ Acetaminophen (Percocet 5/325) 2 tab PRN Q4HRS PRN PO MODERATE PAIN , SEVERE PAIN; Start 02/03/18 at 11:00 Morphine Sulfate (Morphine Sulfate) 5 mg PRN Q3HRS PRN IV MODERATE TO SEVERE PAIN Last administered on 02/05/18at 04:22; Start 02/03/18 at 11:15 Docusate Sodium (Colace) 100 mg BID PO Last administered on 02/03/18at 21:07; Start 02/03/18 at 11:00 Ondansetron HCl (Zofran) 4 mg PRN Q6HRS PRN IV NAUESA, 1ST CHOICE Last administered on 02/04/18at 16:22; Start 02/03/18 at 11:00 Enoxaparin Sodium (Lovenox 40mg Syringe) 40 mg Q24H SQ ; Start 02/04/18 at 09:00 ; Stop 02/04/18 at 09:00; Status DC Hydralazine HCl (Apresoline Inj) 10 mg 1X PACU PRN IVP ELEVATED BP, SEE COMMENTS; Start 02/03/18 at 12:15; Stop 02/03/18 at 20:00; Status DC Oxycodone/ Acetaminophen (Percocet 5/325) 1 tab 1X PACU PRN PO PAIN Last administered on 02/03/18at 12:20; Start 02/03/18 at 12:15; Stop 02/03/18 at 20:00; Status DC Albuterol Sulfate (Ventolin Neb Soln) 2.5 mg PRN Q2HR PRN NEB [id number] Last administered on 02/04/18at 04:11; Start 02/03/18 at 15:00 Albuterol/ Ipratropium (Duoneb) 3 ml RTQID NEB Last administered on 02/04/18at 20 :36; Start 02/03/18 at 16:00 Ondansetron HCl (Zofran) 4 mg PRN Q6HRS PRN IV NAUSEA/VOMITING; Start 02/04/18 at 07:00; Stop 02/05/18 at 06:59; Status DC Fentanyl Citrate (Fentanyl 2ml Vial) 25 mcg PRN Q5MIN PRN IV MILD PAIN; Start 02/04/18 at 07:00; Stop 02/05/18 at 06:59; Status DC Fentanyl Citrate (Fentanyl 2ml Vial) 50 mcg PRN Q5MIN PRN IV MODERATE TO SEVERE PAIN; Start 02/04/18 at 07:00; Stop 02/05/18 at 06:59; Status DC Morphine Sulfate (Morphine Sulfate) 1 mg PRN Q10MIN PRN IV SEVERE PAIN; Start 02/04/18 at 07:00; Stop 02/05/18 at 06:59; Status DC Ringer's Solution 1,000 ml @ 30 mls/hr Q24H IV ; Start 02/04/18 at 07:00; Stop 02/04/18 at 18:59; Status DC Lidocaine HCl (Xylocaine-Mpf 1% Vial) 2 ml PRN 1X PRN ID IV START; Start at 07:00; Stop 02/05/18 at 06:59; Status DC Prochlorperazine Edisylate (Compazine) 5 mg PACU PRN PRN IV NAUSEA, MRX1; Start 02/04/18 at 07:00; Stop 02/05/18 at 06:59; Status DC Furosemide (Lasix) 40 mg 1X ONCE IVP Last administered on 02/04/18at 12:47; Start 02/04/18 at 11:45; Stop 02/04/18 at 11:46; Status DC Sodium Chloride 1,000 ml @ 100 mls/hr Q10H IV Last administered on 02/05/18at 02 :08; Start 02/04/18 at 12:00 Hydralazine HCl (Apresoline Inj) 10 mg PRN Q4HRS PRN IVP ELEVATED BP, SEE COMMENTS; Start 02/04/18 at 12:15 Iohexol (Omnipaque 300 Mg/ml) 100 ml STK-MED ONCE .ROUTE ; Start 02/04/18 at 12: 11; Stop 02/04/18 at 12:12; Status DC Cefazolin Sodium/ Dextrose (Ancef 2gm Premix) 2 gm STK-MED ONCE IV ; Start at 07:00; Stop 02/04/18 at 12:31; Status DC Propofol 0 ml @ As Directed STK-MED ONCE IV ; Start 02/04/18 at 13:50; Stop at 13:51; Status DC Lidocaine HCl (Lidocaine Pf 2% Vial) 5 ml STK-MED ONCE .ROUTE ; Start 02/04/18 at 13:50; Stop 02/04/18 at 13:51; Status DC Famotidine (Pepcid Vial) 20 mg STK-MED ONCE .ROUTE ; Start 02/04/18 at 13:50; Stop 02/04/18 at 13:51; Status DC Dexamethasone Sodium Phosphate (Decadron) 20 mg STK-MED ONCE .ROUTE ; Start 02/04 at 13:50; Stop 02/04/18 at 13:52; Status DC Ondansetron HCl (Zofran) 4 mg STK-MED ONCE .ROUTE ; Start 02/04/18 at 13:50; Stop 02/04/18 at 13:52; Status DC Lorazepam (Ativan) 0.5 mg PRN Q8HRS PRN PO ANXIETY / AGITATION; Start 02/04/18 at 15:15 Furosemide (Lasix) 40 mg 1X ONCE IVP Last administered on 02/04/18at 17:00; Start 02/04/18 at 16:45; Stop 02/04/18 at 16:46; Status DC Ciprofloxacin/ Dextrose 200 ml @ 200 mls/hr Q12HR IV Last administered on at 17:30; Start 02/04/18 at 17:30 Metronidazole 100 ml @ 100 mls/hr Q12HR IV Last administered on 02/04/18at 17:30 ; Start 02/04/18 at 17:30 Metoclopramide HCl (Reglan Vial) 5 mg PRN Q6HRS PRN IV NAUSEA/VOMITING 2nd CHOICE Last administered on 02/05/18at 02:08; Start 02/04/18 at 17:30 Lorazepam (Ativan) 0.5 mg PRN Q6HRS PRN IV ANXIETY / AGITATION Last administered on 02/04/18at 21:27; Start 02/04/18 at 20:45 Acetaminophen (Tylenol) 500 mg PRN Q4HRS PRN PO FEVER; Start 02/04/18 at 22:15 Furosemide (Lasix) 40 mg 1X ONCE IVP Last administered on 02/05/18at 01:15; Start 02/05/18 at 01:30; Stop 02/05/18 at 01:31; Status DC Active Scripts Active Reported Ferrous Sulfate 325 Mg Tablet 1 Tab PO DAILY Super B Complex-Vitamin C (B Complex With Vitamin C) 1 Each Tablet 1 Each PO Warfarin Sodium 5 Mg Tablet 7.5 Mg PO QTUTHSA Amiodarone Hcl 200 Mg Tablet 100 Mg PO DAILY Furosemide 20 Mg Tablet 10 Mg PO QMWF Metoprolol Succinate ( Xl ) (Metoprolol Succinate) 25 Mg Tab.er.24h 1 Tab PO QPM Calcitriol 0.25 Mcg Capsule 0.25 Mcg PO QM-W-F Warfarin Sodium 5 Mg Tablet 5 Mg PO QMWF Loratadine 10 Mg Tablet 10 Mg PO QHS Tamsulosin Hcl 0.4 Mg Cap.er.24h 0.4 Mg PO QHS Atorvastatin Calcium 10 Mg Tablet 10 Mg PO HS Duoneb 0.5-3(2.5) Mg/3 Ml (Albuterol/Ipratropium) 3 Ml Ampul.neb 3 Ml IH TID PRN Flonase (Fluticasone Propionate) 16 Gm [place].susp 2 [place] NS BID Vitals/I & O Vital Sign - Last 24 Hours 02/04/18 02/04/18 02/04/18 02/04/18 08:00 09:19 10:00 11:00 Temp 97.7 97.7 Pulse 76 Resp 18 B/P (MAP) 120/56 (77) Pulse Ox 91 91 O2 Delivery Bi-pap Nasal Cannula Nasal Cannula O2 Flow Rate 3.0 3.0 3.0 02/04/18 02/04/18 02/04/18 02/04/18 11:23 14:06 15:00 15:11 Temp 98.8 98.4 98.8 98.4 Pulse 98 109 Resp 20 22 B/P (MAP) 143/61 (88) Pulse Ox 91 92 O2 Delivery Nasal Cannula Nasal Cannula Nasal Cannula O2 Flow Rate 2.0 5.0 2.0 02/04/18 02/04/18 02/04/18 02/04/18 15:13 17:03 17:52 20:30 Pulse Ox 94 100 O2 Delivery BiPAP/CPAP BiPAP/CPAP BiPAP/CPAP Bi-pap 02/04/18 02/04/18 02/04/18 02/04/18 20:31 20:33 21:00 22:02 Temp 98.4 99.7 98.4 99.7 Pulse 81 84 80 Resp 16 16 24 B/P (MAP) 131/74 (93) 117/67 (84) 135/67 (89) Pulse Ox 94 95 94 96 O2 Delivery BiPAP/CPAP BiPAP/CPAP BiPAP/CPAP BiPAP/CPAP 02/04/18 02/04/18 02/04/18 02/05/18 23:00 23:32 23:37 00:00 Temp 100.1 100.1 Pulse 81 86 Resp 14 20 16 B/P (MAP) 131/62 (85) 113/57 (75) Pulse Ox 95 95 93 94 O2 Delivery BiPAP/CPAP BiPAP/CPAP BiPAP/CPAP BiPAP/CPAP 02/05/18 02/05/18 02/05/18 02/05/18 00:00 00:07 01:00 01:02 Pulse 76 Resp 16 16 B/P (MAP) 115/65 (82) Pulse Ox 94 95 94 O2 Delivery Bi-pap BiPAP/CPAP BiPAP/CPAP BiPAP/CPAP 02/05/18 02/05/18 02/05/18 02/05/18 02:00 02:51 03:00 03:50 Pulse 80 82 Resp 25 17 B/P (MAP) 123/67 (85) 138/63 (88) Pulse Ox 95 95 97 O2 Delivery BiPAP/CPAP BiPAP/CPAP BiPAP/CPAP Bi-pap 02/05/18 02/05/18 02/05/18 02/05/18 04:00 04:22 05:00 05:53 Temp 100.0 100.0 Pulse 107 82 Resp 23 22 17 B/P (MAP) 101/57 (72) 105/58 (74) Pulse Ox 96 96 98 96 O2 Delivery BiPAP/CPAP BiPAP/CPAP BiPAP/CPAP BiPAP/CPAP 02/05/18 02/05/18 06:00 07:00 Pulse 88 94 Resp 15 18 B/P (MAP) 112/68 (83) 121/61 (81) Pulse Ox 95 95 O2 Delivery BiPAP/CPAP BiPAP/CPAP Intake and Output 02/04/18 02/04/18 02/05/18 15:00 23:00 07:00 Intake Total 0 ml 346 ml Output Total 245 ml 335 ml Balance -245 ml 11 ml BORIS BRIZUELA MD Feb 05, 2018 07:48
[2018-02-05 08:01] LABS: BASE EXCESS ABG -3 mmol/L (-3-3); HCO3 ABG 24 mmol/L (21-28); PCO2 ABG 51 mmHg (35-46); PO2 ABG 74 mmHg (65-108); SAT O2 ABG 94 % (92-99)
[2018-02-05] MEDS: CIPROFLOXACIN 400MG PREMIX 200 ML IV SCH ×2 (08:08→21:04)
[2018-02-05] MEDS: DOCUSATE SODIUM 100 MG CAPSULE. PO SCH ×2 (08:08→20:36)
--- NOTE | 2018-02-05 08:46 | PDOC ---
SURGICAL PROGRESS NOTE Subjective BIPAP on at bedside, tearful Gerardo responds to voice Vital Signs Vital Signs Date Time Temp Pulse Resp B/P (MAP) Pulse Ox O2 Delivery O2 Flow Rate FiO2 02/05/18 08:07 94 BiPAP/CPAP 02/05/18 08:00 2.0 02/05/18 08:00 99.4 82 20 123/63 (83) 99.4 I&O Intake and Output 02/05/18 07:00 Intake Total 346 ml Output Total 580 ml Balance -234 ml Intake Oral 0 ml IV Total 346 ml Output Urine Total 580 ml # Voids 2 PATIENT HAS A DE LA ROSA: Yes General: No acute distress Abdomen: Soft Labs Laboratory Tests Test 02/03/18 09:06 02/04/18 09:25 02/04/18 12:50 02/04/18 15:00 Prothrombin Time 14.4 SEC (11.7-14.0) Prothromb Time International Ratio 1.2 (0.8-1.1) Activated Partial Thromboplast Time 32 SEC (24-38) Sodium Level 135 mmol/L (136-145) 136 mmol/L (136-145) Potassium Level 6.1 mmol/L (3.5-5.1) 6.0 mmol/L (3.5-5.1) 6.0 mmol/L (3.5-5.1) Chloride Level 104 mmol/L (98-107) 104 mmol/L (98-107) Carbon Dioxide Level 25 mmol/L (21-32) 27 mmol/L (21-32) Anion Gap 6 (6-14) 5 (6-14) Blood Urea Nitrogen 53 mg/dL (8-26) 57 mg/dL (8-26) Creatinine 2.1 mg/dL (0.7-1.3) 2.3 mg/dL (0.7-1.3) Estimated GFR (Cockcroft-Gault) 30.9 27.8 Glucose Level 125 mg/dL (70-99) 125 mg/dL (70-99) Calcium Level 10.3 mg/dL (8.5-10.1) 11.0 mg/dL (8.5-10.1) Total Bilirubin 2.0 mg/dL (0.2-1.0) Direct Bilirubin 0.5 mg/dL (0.0-0.2) Aspartate Amino Transf (AST/SGOT) 30 U/L (15-37) Alanine Aminotransferase (ALT/SGPT) 27 U/L (16-63) Alkaline Phosphatase 74 U/L (46-116) Total Protein 7.1 g/dL (6.4-8.2) Albumin 3.1 g/dL (3.4-5.0) Lactic Acid Level 3.1 mmol/L (0.4-2.0) Test 02/04/18 15:15 02/04/18 15:51 02/04/18 21:20 02/05/18 04:00 White Blood Count 24.9 x10^3/uL (4.0-11.0) 25.5 x10^3/uL (4.0-11.0) 24.7 x10^3/uL (4.0-11.0) Red Blood Count 3.64 x10^6/uL (4.30-5.70) 3.48 x10^6/uL (4.30-5.70) 3.25 x10^6/uL (4.30-5.70) Hemoglobin 11.5 g/dL (13.0-17.5) 10.9 g/dL (13.0-17.5) 10.3 g/dL (13.0-17.5) Hematocrit 35.5 % (39.0-53.0) 33.6 % (39.0-53.0) 31.4 % (39.0-53.0) Mean Corpuscular Volume 98 fL (79-100) 97 fL (79-100) 97 fL (79-100) Mean Corpuscular Hemoglobin 32 pg (25-35) 31 pg (25-35) 32 pg (25-35) Mean Corpuscular Hemoglobin Concent 32 g/dL (31-37) 33 g/dL (31-37) 33 g/dL (31-37) Red Cell Distribution Width 14.8 % (11.5-14.5) 15.1 % (11.5-14.5) 14.8 % (11.5-14.5) Platelet Count 184 x10^3/uL (140-400) 155 x10^3/uL (140-400) 134 x10^3/uL (140-400) O2 Saturation 92 % (92-99) Arterial Blood pH 7.31 (7.35-7.45) Arterial Blood pCO2 at Patient Temp 47 mmHg (35-46) Arterial Blood pO2 at Patient Temp 66 mmHg (65-108) Arterial Blood HCO3 23 mmol/L (21-28) Arterial Blood Base Excess -4 mmol/L (-3-3) FiO2 45 Neutrophils (%) (Auto) 89 % (31-73) 91 % (31-73) Lymphocytes (%) (Auto) 2 % (24-48) 2 % (24-48) Monocytes (%) (Auto) 8 % (0-9) 7 % (0-9) Eosinophils (%) (Auto) 0 % (0-3) 0 % (0-3) Basophils (%) (Auto) 0 % (0-3) 0 % (0-3) Neutrophils # (Auto) 22.7 x10^3uL (1.8-7.7) 22.4 x10^3uL (1.8-7.7) Lymphocytes # (Auto) 0.5 x10^3/uL (1.0-4.8) 0.5 x10^3/uL (1.0-4.8) Monocytes # (Auto) 2.1 x10^3/uL (0.0-1.1) 1.7 x10^3/uL (0.0-1.1) Eosinophils # (Auto) 0.0 x10^3/uL (0.0-0.7) 0.0 x10^3/uL (0.0-0.7) Basophils # (Auto) 0.1 x10^3/uL (0.0-0.2) 0.1 x10^3/uL (0.0-0.2) Segmented Neutrophils % 90 % (35-66) Band Neutrophils % 2 % (0-9) Lymphocytes % 3 % (24-48) Monocytes % 5 % (0-10) Platelet Estimate Adequate (ADEQUATE) Sodium Level 134 mmol/L (136-145) 135 mmol/L (136-145) Potassium Level 5.9 mmol/L (3.5-5.1) 5.7 mmol/L (3.5-5.1) Chloride Level 103 mmol/L (98-107) 103 mmol/L (98-107) Carbon Dioxide Level 26 mmol/L (21-32) 24 mmol/L (21-32) Anion Gap 5 (6-14) 8 (6-14) Blood Urea Nitrogen 64 mg/dL (8-26) 72 mg/dL (8-26) Creatinine 3.4 mg/dL (0.7-1.3) 3.6 mg/dL (0.7-1.3) Estimated GFR (Cockcroft-Gault) 17.7 16.6 Glucose Level 117 mg/dL (70-99) 109 mg/dL (70-99) Lactic Acid Level 1.5 mmol/L (0.4-2.0) Calcium Level 10.3 mg/dL (8.5-10.1) 10.4 mg/dL (8.5-10.1) BUN/Creatinine Ratio 20 (6-20) Total Bilirubin 3.4 mg/dL (0.2-1.0) Aspartate Amino Transf (AST/SGOT) 18 U/L (15-37) Alanine Aminotransferase (ALT/SGPT) 14 U/L (16-63) Alkaline Phosphatase 68 U/L (46-116) Total Protein 6.5 g/dL (6.4-8.2) Albumin 2.8 g/dL (3.4-5.0) Albumin/Globulin Ratio 0.8 (1.0-1.7) Amylase Level 33 U/L (25-115) Lipase 70 U/L (73-393) Laboratory Tests Test 02/04/18 09:25 02/04/18 12:50 02/04/18 15:00 02/04/18 15:15 Sodium Level 135 mmol/L (136-145) 136 mmol/L (136-145) Potassium Level 6.1 mmol/L (3.5-5.1) 6.0 mmol/L (3.5-5.1) 6.0 mmol/L (3.5-5.1) Chloride Level 104 mmol/L (98-107) 104 mmol/L (98-107) Carbon Dioxide Level 25 mmol/L (21-32) 27 mmol/L (21-32) Anion Gap 6 (6-14) 5 (6-14) Blood Urea Nitrogen 53 mg/dL (8-26) 57 mg/dL (8-26) Creatinine 2.1 mg/dL (0.7-1.3) 2.3 mg/dL (0.7-1.3) Estimated GFR (Cockcroft-Gault) 30.9 27.8 Glucose Level 125 mg/dL (70-99) 125 mg/dL (70-99) Calcium Level 10.3 mg/dL (8.5-10.1) 11.0 mg/dL (8.5-10.1) Total Bilirubin 2.0 mg/dL (0.2-1.0) Direct Bilirubin 0.5 mg/dL (0.0-0.2) Aspartate Amino Transf (AST/SGOT) 30 U/L (15-37) Alanine Aminotransferase (ALT/SGPT) 27 U/L (16-63) Alkaline Phosphatase 74 U/L (46-116) Total Protein 7.1 g/dL (6.4-8.2) Albumin 3.1 g/dL (3.4-5.0) Lactic Acid Level 3.1 mmol/L (0.4-2.0) White Blood Count 24.9 x10^3/uL (4.0-11.0) Red Blood Count 3.64 x10^6/uL (4.30-5.70) Hemoglobin 11.5 g/dL (13.0-17.5) Hematocrit 35.5 % (39.0-53.0) Mean Corpuscular Volume 98 fL (79-100) Mean Corpuscular Hemoglobin 32 pg (25-35) Mean Corpuscular Hemoglobin Concent 32 g/dL (31-37) Red Cell Distribution Width 14.8 % (11.5-14.5) Platelet Count 184 x10^3/uL (140-400) Test 02/04/18 15:51 02/04/18 21:20 02/05/18 04:00 O2 Saturation 92 % (92-99) Arterial Blood pH 7.31 (7.35-7.45) Arterial Blood pCO2 at Patient Temp 47 mmHg (35-46) Arterial Blood pO2 at Patient Temp 66 mmHg (65-108) Arterial Blood HCO3 23 mmol/L (21-28) Arterial Blood Base Excess -4 mmol/L (-3-3) FiO2 45 White Blood Count 25.5 x10^3/uL (4.0-11.0) 24.7 x10^3/uL (4.0-11.0) Red Blood Count 3.48 x10^6/uL (4.30-5.70) 3.25 x10^6/uL (4.30-5.70) Hemoglobin 10.9 g/dL (13.0-17.5) 10.3 g/dL (13.0-17.5) Hematocrit 33.6 % (39.0-53.0) 31.4 % (39.0-53.0) Mean Corpuscular Volume 97 fL (79-100) 97 fL (79-100) Mean Corpuscular Hemoglobin 31 pg (25-35) 32 pg (25-35) Mean Corpuscular Hemoglobin Concent 33 g/dL (31-37) 33 g/dL (31-37) Red Cell Distribution Width 15.1 % (11.5-14.5) 14.8 % (11.5-14.5) Platelet Count 155 x10^3/uL (140-400) 134 x10^3/uL (140-400) Neutrophils (%) (Auto) 89 % (31-73) 91 % (31-73) Lymphocytes (%) (Auto) 2 % (24-48) 2 % (24-48) Monocytes (%) (Auto) 8 % (0-9) 7 % (0-9) Eosinophils (%) (Auto) 0 % (0-3) 0 % (0-3) Basophils (%) (Auto) 0 % (0-3) 0 % (0-3) Neutrophils # (Auto) 22.7 x10^3uL (1.8-7.7) 22.4 x10^3uL (1.8-7.7) Lymphocytes # (Auto) 0.5 x10^3/uL (1.0-4.8) 0.5 x10^3/uL (1.0-4.8) Monocytes # (Auto) 2.1 x10^3/uL (0.0-1.1) 1.7 x10^3/uL (0.0-1.1) Eosinophils # (Auto) 0.0 x10^3/uL (0.0-0.7) 0.0 x10^3/uL (0.0-0.7) Basophils # (Auto) 0.1 x10^3/uL (0.0-0.2) 0.1 x10^3/uL (0.0-0.2) Segmented Neutrophils % 90 % (35-66) Band Neutrophils % 2 % (0-9) Lymphocytes % 3 % (24-48) Monocytes % 5 % (0-10) Platelet Estimate Adequate (ADEQUATE) Sodium Level 134 mmol/L (136-145) 135 mmol/L (136-145) Potassium Level 5.9 mmol/L (3.5-5.1) 5.7 mmol/L (3.5-5.1) Chloride Level 103 mmol/L (98-107) 103 mmol/L (98-107) Carbon Dioxide Level 26 mmol/L (21-32) 24 mmol/L (21-32) Anion Gap 5 (6-14) 8 (6-14) Blood Urea Nitrogen 64 mg/dL (8-26) 72 mg/dL (8-26) Creatinine 3.4 mg/dL (0.7-1.3) 3.6 mg/dL (0.7-1.3) Estimated GFR (Cockcroft-Gault) 17.7 16.6 Glucose Level 117 mg/dL (70-99) 109 mg/dL (70-99) Lactic Acid Level 1.5 mmol/L (0.4-2.0) Calcium Level 10.3 mg/dL (8.5-10.1) 10.4 mg/dL (8.5-10.1) BUN/Creatinine Ratio 20 (6-20) Total Bilirubin 3.4 mg/dL (0.2-1.0) Aspartate Amino Transf (AST/SGOT) 18 U/L (15-37) Alanine Aminotransferase (ALT/SGPT) 14 U/L (16-63) Alkaline Phosphatase 68 U/L (46-116) Total Protein 6.5 g/dL (6.4-8.2) Albumin 2.8 g/dL (3.4-5.0) Albumin/Globulin Ratio 0.8 (1.0-1.7) Amylase Level 33 U/L (25-115) Lipase 70 U/L (73-393) Assessment/Plan s/p l/s cholecystectomy choledocholithiasis CKD COPD sepsis spoke at some length with pt's tried to answer her questions for ERCP today, will need to be intubated appreciate consultants input supportive care WES JOYCE MD Feb 05, 2018 08:46
[2018-02-05 09:03] LABS: FIO2 ABG 98
--- NOTE | 2018-02-05 09:21 | PDOC ---
SUBJECTIVE ROS Pt transferred to ICU last night Paged by RN x 2 for High K of 5.9 and Decrease in UOP - IV lasix 40 mg repeated S/P ERCP with sphincterotomy/stone extraction this morning On bipap, UOP improved as per RN, OBJECTIVE Vital Signs Vital Signs Date Time Temp Pulse Resp B/P (MAP) Pulse Ox O2 Delivery O2 Flow Rate FiO2 02/05/18 09:00 93 20 112/56 (74) 93 BiPAP/CPAP 2.0 02/05/18 08:00 99.4 99.4 I & 0 Intake and Output 02/05/18 07:00 Intake Total 346 ml Output Total 580 ml Balance -234 ml Intake Oral 0 ml IV Total 346 ml Output Urine Total 580 ml # Voids 2 PHYSICAL EXAM Physical Exam GEN: On Bipap, Resp distress+ HEENT-On Bipap neck- supple LUNGS: CTAB ant HEART: RRR, no murmurs ABD: +TTP RUQ, obese EXTREMITY: No edema SKIN: No rashes, NEURO/PSYCH: On Bipap - Rodriguez + DIAGNOSIS/ASSESSMENT Assessment & Plan JAYDON on CKD - Likely ATN ,Increased Creat now post Hypotensive episode yesterday UOP stabilized, Recd IV lasix prn On Bipap , Currently No urgent indication for [employer] Monitor Hyperkalemia- Was receiving IV KCL with IVF Bicarb Normal,K still high, improving CKD stage 3 His baseline Creat has been 1.5 to 2.3 Afib- chronic- cardiology on board Symptomatic cholelithiasis: S/P Lap vilma, Acute/Chronic resp expected status post laparoscopic cholecystectomy. Chronic obstructive pulmonary disease of the chronic bronchitic type. Common Bile duct stone S/P ERCP with sphincterotomy/stone extraction 02/05 Discussed with RN , was not at bedside COMMENT/RELEVANT DATA Meds Current Medications Medications (Trade) Dose Ordered Sig/Patricia Start Time Stop Time Status Last Admin Dose Admin Acetaminophen (Tylenol) 500 mg PRN Q4HRS PRN 02/04/18 22:15 Albuterol Sulfate (Ventolin Neb Soln) 2.5 mg PRN Q2HR PRN 02/03/18 15:00 02/04/18 04:11 2.5 MG Albuterol/ Ipratropium (Duoneb) 3 ml RTQID 02/03/18 16:00 02/05/18 07:48 3 ML Bupivacaine HCl/ Epinephrine Bitart (Marcaine-Epi 0.5%-[id number]) 50 ml STK-MED ONCE 02/03/18 07:56 02/03/18 08:57 DC 02/03/18 09:49 8 ML Cefazolin Sodium/ Dextrose (Ancef 2gm Premix) 2 gm STK-MED ONCE 02/03/18 07:00 02/04/18 12:31 DC Ciprofloxacin/ Dextrose 200 ml @ 200 mls/hr Q12HR 02/04/18 17:30 02/05/18 08:08 200 MLS/HR Desflurane (Suprane) 60 ml STK-MED ONCE 02/03/18 08:09 02/03/18 08:10 DC Dexamethasone Sodium Phosphate (Decadron) 20 mg STK-MED ONCE 02/04/18 13:50 02/04/18 13:52 DC Dextrose (Dextrose 50%-Water Syringe) 12.5 gm PRN Q15MIN PRN 02/03/18 11:00 Diphenhydramine HCl (Benadryl) 25 mg PRN Q6HRS PRN 02/03/18 11:00 02/03/18 13:49 25 MG Docusate Sodium (Colace) 100 mg BID 02/03/18 11:00 02/03/18 21:07 100 MG Enoxaparin Sodium (Lovenox 40mg Syringe) 40 mg Q24H 02/04/18 09:00 02/04/18 09:00 DC Ephedrine Sulfate (ePHEDrine PF IN SALINE SYRINGE) 50 mg STK-MED ONCE 02/03/18 08:15 02/03/18 08:16 DC Famotidine (Pepcid Vial) 20 mg STK-MED ONCE 02/04/18 13:50 02/04/18 13:51 DC Fentanyl Citrate (Fentanyl 2ml Vial) 50 mcg PRN Q5MIN PRN 02/04/18 07:00 02/05/18 06:59 DC Furosemide (Lasix) 40 mg 1X ONCE 02/05/18 01:30 02/05/18 01:31 DC 02/05/18 01:15 40 MG Glycopyrrolate (Robinul) 1 mg STK-MED ONCE 02/03/18 09:55 02/03/18 09:56 DC Hydralazine HCl (Apresoline Inj) 10 mg PRN Q4HRS PRN 02/04/18 12:15 Iohexol (Omnipaque 300 Mg/ml) 100 ml STK-MED ONCE 02/04/18 12:11 02/04/18 12:12 DC Ketorolac Tromethamine (Toradol For Or Only) 30 mg STK-MED ONCE 02/03/18 08:09 02/03/18 08:10 DC Lidocaine HCl (Lidocaine Pf 2% Vial) 5 ml STK-MED ONCE 02/04/18 13:50 02/04/18 13:51 DC Lidocaine HCl (Xylocaine-Mpf 1% Vial) 2 ml PRN 1X PRN 02/04/18 07:00 02/05/18 06:59 DC Lorazepam (Ativan) 0.5 mg PRN Q6HRS PRN 02/04/18 20:45 02/04/18 21:27 0.5 MG Metoclopramide HCl (Reglan Vial) 5 mg PRN Q6HRS PRN 02/04/18 17:30 02/05/18 08:08 5 MG Metronidazole 100 ml @ 100 mls/hr Q12HR 02/04/18 17:30 02/05/18 08:07 100 MLS/HR Morphine Sulfate (Morphine Sulfate) 1 mg PRN Q10MIN PRN 02/04/18 07:00 02/05/18 06:59 DC Neostigmine Methylsulfate (Neostigmine Methylsulfate) 5 mg STK-MED ONCE 02/03/18 09:55 02/03/18 09:56 DC Ondansetron HCl (Zofran) 4 mg STK-MED ONCE 02/04/18 13:50 02/04/18 13:52 DC Oxycodone/ Acetaminophen (Percocet 5/325) 1 tab 1X PACU PRN 02/03/18 12:15 02/03/18 20:00 DC 02/03/18 12:20 1 TAB Phenylephrine HCl (PHENYLEPHRINE in 0.9% NACL PF) 1 mg STK-MED ONCE 02/03/18 09:24 02/03/18 09:25 DC Potassium Chloride/Sodium Chloride 1,000 ml @ 75 mls/hr [id number] 02/03/18 10:46 02/04/18 11:37 DC 02/03/18 23:55 75 MLS/HR Prochlorperazine Edisylate (Compazine) 5 mg PACU PRN PRN 02/04/18 07:00 02/05/18 06:59 DC Propofol 0 ml @ As Directed STK-MED ONCE 02/04/18 13:50 02/04/18 13:51 DC Ringer's Solution 1,000 ml @ 30 mls/hr Q24H 02/04/18 07:00 02/04/18 18:59 DC Rocuronium [place] (Zemuron) 50 mg STK-MED ONCE 02/03/18 08:09 02/03/18 08:10 DC Sodium Chloride 1,000 ml @ 100 mls/hr Q10H 02/04/18 12:00 02/05/18 08:07 100 MLS/HR Sodium Chloride (Normal Saline Flush) 3 ml QSHIFT PRN 02/03/18 11:00 Lab Laboratory Tests Test 02/04/18 09:25 02/04/18 12:50 02/04/18 15:00 02/04/18 15:15 Sodium Level 135 mmol/L (136-145) 136 mmol/L (136-145) Potassium Level 6.1 mmol/L (3.5-5.1) 6.0 mmol/L (3.5-5.1) 6.0 mmol/L (3.5-5.1) Chloride Level 104 mmol/L (98-107) 104 mmol/L (98-107) Carbon Dioxide Level 25 mmol/L (21-32) 27 mmol/L (21-32) Anion Gap 6 (6-14) 5 (6-14) Blood Urea Nitrogen 53 mg/dL (8-26) 57 mg/dL (8-26) Creatinine 2.1 mg/dL (0.7-1.3) 2.3 mg/dL (0.7-1.3) Estimated GFR (Cockcroft-Gault) 30.9 27.8 Glucose Level 125 mg/dL (70-99) 125 mg/dL (70-99) Calcium Level 10.3 mg/dL (8.5-10.1) 11.0 mg/dL (8.5-10.1) Total Bilirubin 2.0 mg/dL (0.2-1.0) Direct Bilirubin 0.5 mg/dL (0.0-0.2) Aspartate Amino Transf (AST/SGOT) 30 U/L (15-37) Alanine Aminotransferase (ALT/SGPT) 27 U/L (16-63) Alkaline Phosphatase 74 U/L (46-116) Total Protein 7.1 g/dL (6.4-8.2) Albumin 3.1 g/dL (3.4-5.0) Lactic Acid Level 3.1 mmol/L (0.4-2.0) White Blood Count 24.9 x10^3/uL (4.0-11.0) Red Blood Count 3.64 x10^6/uL (4.30-5.70) Hemoglobin 11.5 g/dL (13.0-17.5) Hematocrit 35.5 % (39.0-53.0) Mean Corpuscular Volume 98 fL (79-100) Mean Corpuscular Hemoglobin 32 pg (25-35) Mean Corpuscular Hemoglobin Concent 32 g/dL (31-37) Red Cell Distribution Width 14.8 % (11.5-14.5) Platelet Count 184 x10^3/uL (140-400) Test 02/04/18 15:51 02/04/18 21:20 02/05/18 04:00 02/05/18 07:55 O2 Saturation 92 % (92-99) 94 % (92-99) Arterial Blood pH 7.31 (7.35-7.45) 7.29 (7.35-7.45) Arterial Blood pCO2 at Patient Temp 47 mmHg (35-46) 51 mmHg (35-46) Arterial Blood pO2 at Patient Temp 66 mmHg (65-108) 74 mmHg (65-108) Arterial Blood HCO3 23 mmol/L (21-28) 24 mmol/L (21-28) Arterial Blood Base Excess -4 mmol/L (-3-3) -3 mmol/L (-3-3) FiO2 45 98 White Blood Count 25.5 x10^3/uL (4.0-11.0) 24.7 x10^3/uL (4.0-11.0) Red Blood Count 3.48 x10^6/uL (4.30-5.70) 3.25 x10^6/uL (4.30-5.70) Hemoglobin 10.9 g/dL (13.0-17.5) 10.3 g/dL (13.0-17.5) Hematocrit 33.6 % (39.0-53.0) 31.4 % (39.0-53.0) Mean Corpuscular Volume 97 fL (79-100) 97 fL (79-100) Mean Corpuscular Hemoglobin 31 pg (25-35) 32 pg (25-35) Mean Corpuscular Hemoglobin Concent 33 g/dL (31-37) 33 g/dL (31-37) Red Cell Distribution Width 15.1 % (11.5-14.5) 14.8 % (11.5-14.5) Platelet Count 155 x10^3/uL (140-400) 134 x10^3/uL (140-400) Neutrophils (%) (Auto) 89 % (31-73) 91 % (31-73) Lymphocytes (%) (Auto) 2 % (24-48) 2 % (24-48) Monocytes (%) (Auto) 8 % (0-9) 7 % (0-9) Eosinophils (%) (Auto) 0 % (0-3) 0 % (0-3) Basophils (%) (Auto) 0 % (0-3) 0 % (0-3) Neutrophils # (Auto) 22.7 x10^3uL (1.8-7.7) 22.4 x10^3uL (1.8-7.7) Lymphocytes # (Auto) 0.5 x10^3/uL (1.0-4.8) 0.5 x10^3/uL (1.0-4.8) Monocytes # (Auto) 2.1 x10^3/uL (0.0-1.1) 1.7 x10^3/uL (0.0-1.1) Eosinophils # (Auto) 0.0 x10^3/uL (0.0-0.7) 0.0 x10^3/uL (0.0-0.7) Basophils # (Auto) 0.1 x10^3/uL (0.0-0.2) 0.1 x10^3/uL (0.0-0.2) Segmented Neutrophils % 90 % (35-66) Band Neutrophils % 2 % (0-9) Lymphocytes % 3 % (24-48) Monocytes % 5 % (0-10) Platelet Estimate Adequate (ADEQUATE) Sodium Level 134 mmol/L (136-145) 135 mmol/L (136-145) Potassium Level 5.9 mmol/L (3.5-5.1) 5.7 mmol/L (3.5-5.1) Chloride Level 103 mmol/L (98-107) 103 mmol/L (98-107) Carbon Dioxide Level 26 mmol/L (21-32) 24 mmol/L (21-32) Anion Gap 5 (6-14) 8 (6-14) Blood Urea Nitrogen 64 mg/dL (8-26) 72 mg/dL (8-26) Creatinine 3.4 mg/dL (0.7-1.3) 3.6 mg/dL (0.7-1.3) Estimated GFR (Cockcroft-Gault) 17.7 16.6 Glucose Level 117 mg/dL (70-99) 109 mg/dL (70-99) Lactic Acid Level 1.5 mmol/L (0.4-2.0) Calcium Level 10.3 mg/dL (8.5-10.1) 10.4 mg/dL (8.5-10.1) BUN/Creatinine Ratio 20 (6-20) Total Bilirubin 3.4 mg/dL (0.2-1.0) Aspartate Amino Transf (AST/SGOT) 18 U/L (15-37) Alanine Aminotransferase (ALT/SGPT) 14 U/L (16-63) Alkaline Phosphatase 68 U/L (46-116) Total Protein 6.5 g/dL (6.4-8.2) Albumin 2.8 g/dL (3.4-5.0) Albumin/Globulin Ratio 0.8 (1.0-1.7) Amylase Level 33 U/L (25-115) Lipase 70 U/L (73-393) Results All relevant outside records, renal labs, imaging studies, telemetry/EKG's were reviewed CXR-- .1. Stable suspected bilateral lower lobe atelectasis or infiltrate. 2. Stable enlargement of the cardiac silhouette. KIERSTEN BRODERICK MD Feb 05, 2018 09:21
[2018-02-05] MEDS: IV RINGERS,LACTATED 1000ML 1,000 ML IV SCH ×2 (09:52→23:20)
[2018-02-05] MEDS ORDERED: IOHEXOL 300 MG/ML 100ML VIAL. ONE (10:10)
[2018-02-05] MEDS ORDERED: fentaNYL PF VIAL 100 MCG/2 ML VIAL ONE (10:33)
[2018-02-05] MEDS ORDERED: ONDANSETRON PF 4 MG/2 ML VIAL. ONE (11:01)
--- NOTE | 2018-02-05 11:16 | PDOC ---
PULMONARY PROGRESS NOTES Subjective PT SEEN IN RECOVERY IN ENDO SUITE NO ON BIPAP 30 % Vitals Vital Signs Date Time Temp Pulse Resp B/P (MAP) Pulse Ox O2 Delivery O2 Flow Rate FiO2 02/05/18 09:47 Bi-pap 2.0 02/05/18 09:47 99.1 72 20 95 99.1 02/05/18 09:00 112/56 (74) General: Alert Lungs: Clear Cardiovascular: S1, S2 Abdomen: Soft, Non-tender, Other (DISTENDED) Neuro Exam: Alert Extremities: No Edema Skin: Warm Labs Laboratory Tests Test 02/04/18 09:25 02/04/18 12:50 02/04/18 15:00 02/04/18 15:15 Sodium Level 135 mmol/L (136-145) 136 mmol/L (136-145) Potassium Level 6.1 mmol/L (3.5-5.1) 6.0 mmol/L (3.5-5.1) 6.0 mmol/L (3.5-5.1) Chloride Level 104 mmol/L (98-107) 104 mmol/L (98-107) Carbon Dioxide Level 25 mmol/L (21-32) 27 mmol/L (21-32) Anion Gap 6 (6-14) 5 (6-14) Blood Urea Nitrogen 53 mg/dL (8-26) 57 mg/dL (8-26) Creatinine 2.1 mg/dL (0.7-1.3) 2.3 mg/dL (0.7-1.3) Estimated GFR (Cockcroft-Gault) 30.9 27.8 Glucose Level 125 mg/dL (70-99) 125 mg/dL (70-99) Calcium Level 10.3 mg/dL (8.5-10.1) 11.0 mg/dL (8.5-10.1) Total Bilirubin 2.0 mg/dL (0.2-1.0) Direct Bilirubin 0.5 mg/dL (0.0-0.2) Aspartate Amino Transf (AST/SGOT) 30 U/L (15-37) Alanine Aminotransferase (ALT/SGPT) 27 U/L (16-63) Alkaline Phosphatase 74 U/L (46-116) Total Protein 7.1 g/dL (6.4-8.2) Albumin 3.1 g/dL (3.4-5.0) Lactic Acid Level 3.1 mmol/L (0.4-2.0) White Blood Count 24.9 x10^3/uL (4.0-11.0) Red Blood Count 3.64 x10^6/uL (4.30-5.70) Hemoglobin 11.5 g/dL (13.0-17.5) Hematocrit 35.5 % (39.0-53.0) Mean Corpuscular Volume 98 fL (79-100) Mean Corpuscular Hemoglobin 32 pg (25-35) Mean Corpuscular Hemoglobin Concent 32 g/dL (31-37) Red Cell Distribution Width 14.8 % (11.5-14.5) Platelet Count 184 x10^3/uL (140-400) Test 02/04/18 15:51 02/04/18 21:20 02/05/18 04:00 02/05/18 07:55 O2 Saturation 92 % (92-99) 94 % (92-99) Arterial Blood pH 7.31 (7.35-7.45) 7.29 (7.35-7.45) Arterial Blood pCO2 at Patient Temp 47 mmHg (35-46) 51 mmHg (35-46) Arterial Blood pO2 at Patient Temp 66 mmHg (65-108) 74 mmHg (65-108) Arterial Blood HCO3 23 mmol/L (21-28) 24 mmol/L (21-28) Arterial Blood Base Excess -4 mmol/L (-3-3) -3 mmol/L (-3-3) FiO2 45 98 White Blood Count 25.5 x10^3/uL (4.0-11.0) 24.7 x10^3/uL (4.0-11.0) Red Blood Count 3.48 x10^6/uL (4.30-5.70) 3.25 x10^6/uL (4.30-5.70) Hemoglobin 10.9 g/dL (13.0-17.5) 10.3 g/dL (13.0-17.5) Hematocrit 33.6 % (39.0-53.0) 31.4 % (39.0-53.0) Mean Corpuscular Volume 97 fL (79-100) 97 fL (79-100) Mean Corpuscular Hemoglobin 31 pg (25-35) 32 pg (25-35) Mean Corpuscular Hemoglobin Concent 33 g/dL (31-37) 33 g/dL (31-37) Red Cell Distribution Width 15.1 % (11.5-14.5) 14.8 % (11.5-14.5) Platelet Count 155 x10^3/uL (140-400) 134 x10^3/uL (140-400) Neutrophils (%) (Auto) 89 % (31-73) 91 % (31-73) Lymphocytes (%) (Auto) 2 % (24-48) 2 % (24-48) Monocytes (%) (Auto) 8 % (0-9) 7 % (0-9) Eosinophils (%) (Auto) 0 % (0-3) 0 % (0-3) Basophils (%) (Auto) 0 % (0-3) 0 % (0-3) Neutrophils # (Auto) 22.7 x10^3uL (1.8-7.7) 22.4 x10^3uL (1.8-7.7) Lymphocytes # (Auto) 0.5 x10^3/uL (1.0-4.8) 0.5 x10^3/uL (1.0-4.8) Monocytes # (Auto) 2.1 x10^3/uL (0.0-1.1) 1.7 x10^3/uL (0.0-1.1) Eosinophils # (Auto) 0.0 x10^3/uL (0.0-0.7) 0.0 x10^3/uL (0.0-0.7) Basophils # (Auto) 0.1 x10^3/uL (0.0-0.2) 0.1 x10^3/uL (0.0-0.2) Segmented Neutrophils % 90 % (35-66) Band Neutrophils % 2 % (0-9) Lymphocytes % 3 % (24-48) Monocytes % 5 % (0-10) Platelet Estimate Adequate (ADEQUATE) Sodium Level 134 mmol/L (136-145) 135 mmol/L (136-145) Potassium Level 5.9 mmol/L (3.5-5.1) 5.7 mmol/L (3.5-5.1) Chloride Level 103 mmol/L (98-107) 103 mmol/L (98-107) Carbon Dioxide Level 26 mmol/L (21-32) 24 mmol/L (21-32) Anion Gap 5 (6-14) 8 (6-14) Blood Urea Nitrogen 64 mg/dL (8-26) 72 mg/dL (8-26) Creatinine 3.4 mg/dL (0.7-1.3) 3.6 mg/dL (0.7-1.3) Estimated GFR (Cockcroft-Gault) 17.7 16.6 Glucose Level 117 mg/dL (70-99) 109 mg/dL (70-99) Lactic Acid Level 1.5 mmol/L (0.4-2.0) Calcium Level 10.3 mg/dL (8.5-10.1) 10.4 mg/dL (8.5-10.1) BUN/Creatinine Ratio 20 (6-20) Total Bilirubin 3.4 mg/dL (0.2-1.0) Aspartate Amino Transf (AST/SGOT) 18 U/L (15-37) Alanine Aminotransferase (ALT/SGPT) 14 U/L (16-63) Alkaline Phosphatase 68 U/L (46-116) Total Protein 6.5 g/dL (6.4-8.2) Albumin 2.8 g/dL (3.4-5.0) Albumin/Globulin Ratio 0.8 (1.0-1.7) Amylase Level 33 U/L (25-115) Lipase 70 U/L (73-393) Laboratory Tests Test 02/04/18 12:50 02/04/18 15:00 02/04/18 15:15 02/04/18 15:51 Sodium Level 136 mmol/L (136-145) Potassium Level 6.0 mmol/L (3.5-5.1) 6.0 mmol/L (3.5-5.1) Chloride Level 104 mmol/L (98-107) Carbon Dioxide Level 27 mmol/L (21-32) Anion Gap 5 (6-14) Blood Urea Nitrogen 57 mg/dL (8-26) Creatinine 2.3 mg/dL (0.7-1.3) Estimated GFR (Cockcroft-Gault) 27.8 Glucose Level 125 mg/dL (70-99) Calcium Level 11.0 mg/dL (8.5-10.1) Lactic Acid Level 3.1 mmol/L (0.4-2.0) White Blood Count 24.9 x10^3/uL (4.0-11.0) Red Blood Count 3.64 x10^6/uL (4.30-5.70) Hemoglobin 11.5 g/dL (13.0-17.5) Hematocrit 35.5 % (39.0-53.0) Mean Corpuscular Volume 98 fL (79-100) Mean Corpuscular Hemoglobin 32 pg (25-35) Mean Corpuscular Hemoglobin Concent 32 g/dL (31-37) Red Cell Distribution Width 14.8 % (11.5-14.5) Platelet Count 184 x10^3/uL (140-400) O2 Saturation 92 % (92-99) Arterial Blood pH 7.31 (7.35-7.45) Arterial Blood pCO2 at Patient Temp 47 mmHg (35-46) Arterial Blood pO2 at Patient Temp 66 mmHg (65-108) Arterial Blood HCO3 23 mmol/L (21-28) Arterial Blood Base Excess -4 mmol/L (-3-3) FiO2 45 Test 02/04/18 21:20 02/05/18 04:00 02/05/18 07:55 White Blood Count 25.5 x10^3/uL (4.0-11.0) 24.7 x10^3/uL (4.0-11.0) Red Blood Count 3.48 x10^6/uL (4.30-5.70) 3.25 x10^6/uL (4.30-5.70) Hemoglobin 10.9 g/dL (13.0-17.5) 10.3 g/dL (13.0-17.5) Hematocrit 33.6 % (39.0-53.0) 31.4 % (39.0-53.0) Mean Corpuscular Volume 97 fL (79-100) 97 fL (79-100) Mean Corpuscular Hemoglobin 31 pg (25-35) 32 pg (25-35) Mean Corpuscular Hemoglobin Concent 33 g/dL (31-37) 33 g/dL (31-37) Red Cell Distribution Width 15.1 % (11.5-14.5) 14.8 % (11.5-14.5) Platelet Count 155 x10^3/uL (140-400) 134 x10^3/uL (140-400) Neutrophils (%) (Auto) 89 % (31-73) 91 % (31-73) Lymphocytes (%) (Auto) 2 % (24-48) 2 % (24-48) Monocytes (%) (Auto) 8 % (0-9) 7 % (0-9) Eosinophils (%) (Auto) 0 % (0-3) 0 % (0-3) Basophils (%) (Auto) 0 % (0-3) 0 % (0-3) Neutrophils # (Auto) 22.7 x10^3uL (1.8-7.7) 22.4 x10^3uL (1.8-7.7) Lymphocytes # (Auto) 0.5 x10^3/uL (1.0-4.8) 0.5 x10^3/uL (1.0-4.8) Monocytes # (Auto) 2.1 x10^3/uL (0.0-1.1) 1.7 x10^3/uL (0.0-1.1) Eosinophils # (Auto) 0.0 x10^3/uL (0.0-0.7) 0.0 x10^3/uL (0.0-0.7) Basophils # (Auto) 0.1 x10^3/uL (0.0-0.2) 0.1 x10^3/uL (0.0-0.2) Segmented Neutrophils % 90 % (35-66) Band Neutrophils % 2 % (0-9) Lymphocytes % 3 % (24-48) Monocytes % 5 % (0-10) Platelet Estimate Adequate (ADEQUATE) Sodium Level 134 mmol/L (136-145) 135 mmol/L (136-145) Potassium Level 5.9 mmol/L (3.5-5.1) 5.7 mmol/L (3.5-5.1) Chloride Level 103 mmol/L (98-107) 103 mmol/L (98-107) Carbon Dioxide Level 26 mmol/L (21-32) 24 mmol/L (21-32) Anion Gap 5 (6-14) 8 (6-14) Blood Urea Nitrogen 64 mg/dL (8-26) 72 mg/dL (8-26) Creatinine 3.4 mg/dL (0.7-1.3) 3.6 mg/dL (0.7-1.3) Estimated GFR (Cockcroft-Gault) 17.7 16.6 Glucose Level 117 mg/dL (70-99) 109 mg/dL (70-99) Lactic Acid Level 1.5 mmol/L (0.4-2.0) Calcium Level 10.3 mg/dL (8.5-10.1) 10.4 mg/dL (8.5-10.1) BUN/Creatinine Ratio 20 (6-20) Total Bilirubin 3.4 mg/dL (0.2-1.0) Aspartate Amino Transf (AST/SGOT) 18 U/L (15-37) Alanine Aminotransferase (ALT/SGPT) 14 U/L (16-63) Alkaline Phosphatase 68 U/L (46-116) Total Protein 6.5 g/dL (6.4-8.2) Albumin 2.8 g/dL (3.4-5.0) Albumin/Globulin Ratio 0.8 (1.0-1.7) Amylase Level 33 U/L (25-115) Lipase 70 U/L (73-393) O2 Saturation 94 % (92-99) Arterial Blood pH 7.29 (7.35-7.45) Arterial Blood pCO2 at Patient Temp 51 mmHg (35-46) Arterial Blood pO2 at Patient Temp 74 mmHg (65-108) Arterial Blood HCO3 24 mmol/L (21-28) Arterial Blood Base Excess -3 mmol/L (-3-3) FiO2 98 Medications Active Scripts Medications Dose Route/Sig Max Daily Dose Days Date Category Ferrous Sulfate 325 Mg Tablet 1 Tab PO DAILY 01/28/18 Reported Super B Complex-Vitamin C (B Complex With Vitamin C) 1 Each Tablet 1 Each PO 12/04/17 Reported Warfarin Sodium 5 Mg Tablet 7.5 Mg PO QTUTHSA 06/10/17 Reported Amiodarone Hcl 200 Mg Tablet 100 Mg PO DAILY 06/10/17 Reported Furosemide 20 Mg Tablet 10 Mg PO QMWF 06/10/17 Reported Metoprolol Succinate ( Xl ) (Metoprolol Succinate) 25 Mg Tab.er.24h 1 Tab PO QPM 11/13/16 Reported Calcitriol 0.25 Mcg Capsule 0.25 Mcg PO QM-W-F 05/24/16 Reported Warfarin Sodium 5 Mg Tablet 5 Mg PO QMWF 05/24/16 Reported Loratadine 10 Mg Tablet 10 Mg PO QHS 10/16/14 Reported Tamsulosin Hcl 0.4 Mg Cap.er.24h 0.4 Mg PO QHS 10/16/14 Reported Atorvastatin Calcium 10 Mg Tablet 10 Mg PO HS 10/16/14 Reported Duoneb 0.5-3(2.5) Mg/3 Ml (Albuterol/Ipratropium) 3 Ml Ampul.neb 3 Ml IH TID PRN 07/24/14 Reported Flonase (Fluticasone Propionate) 16 Gm Marion.susp 2 Marion NS BID 01/06/14 Reported Comments IMPRESSION: 1. Minimal bibasilar lung atelectasis or infiltrates. Impression . IMPRESSION: 1. Acute/Chronic resp expected status post laparoscopic cholecystectomy. 03/06 2. Chronic obstructive pulmonary disease of the chronic bronchitic type. 3. Chronic atrial fibrillation. 4. Obstructive sleep apnea. 5. Common Bile duct stone S/P ERCP 02/05 02/05 ERCP with sphincterotomy/stone extraction Meds MAC/GOETT Pre-op dx jaundice/abnl IOC/choledocholithiasis Post-op dx choledocholithiasis s/p sphincterotomy/stone extraction large khalida-ampullary diverticulum Plan serial labs monitor for complications possibly advance diet in am if no adverse events Plan . S/P ERCP INCREASE FI02 TO 35 DECREASE RATE ABG HALDOL NO NEED FOR INTUBATION AT THIS TIME SPOKE WITH DEENA PEARCE MD Feb 05, 2018 11:16
[2018-02-05] MEDS ORDERED: IOHEXOL 300 MG/ML 100ML VIAL. IV ONE (11:27)
--- NOTE | 2018-02-05 11:39 | PDOC4 ---
Operative Note Operative Note ERCP with sphincterotomy/stone extraction Aditya PARISH/PRIYANKA Pre-op dx jaundice/abnl IOC/choledocholithiasis Post-op dx choledocholithiasis s/p sphincterotomy/stone extraction large khalida-ampullary diverticulum Plan serial labs monitor for complications possibly advance diet in am if no adverse events BORIS BRIZUELA MD Feb 05, 2018 11:39
--- NOTE | 2018-02-05 12:34 | RAD ---
ERCP, 02/05/2018: HISTORY: Choledocholithiasis 9 spot films from an ERCP performed by Dr. zita frankel are present for review. 2 minutes and 50 seconds of fluoroscopy time was utilized. On initial images a filling defect was evident in the distal common bile duct. Reportedly a sphincterotomy was performed with subsequent duct dilatation and stone removal. On image #8 a balloon has been inflated in the distal duct. There are vague opacities in the mid and upper common duct, most likely air bubbles. Small retained calculi cannot be entirely excluded. Electronically signed by: Corbin Ruelas MD (02/05/2018 12:30 PM) [facility]
--- NOTE | 2018-02-05 13:05 | RAD ---
EXAM: Chest, single view. HISTORY: Shortness of breath. COMPARISON: 02/04/2018 FINDINGS: A frontal view of the chest obtained. There has been no significant change in diffuse interstitial prominence. There is stable bilateral lower lobe atelectasis or infiltrate. There is no pneumothorax or pleural effusion. There is a stable prominent cardiac silhouette. There is a cardiac pacemaker with leads unchanged in position. IMPRESSION: 1. Stable suspected bilateral lower lobe atelectasis or infiltrate. 2. Stable enlargement of the cardiac silhouette. Electronically signed by: Mimi White MD (02/05/2018 1:01 PM) [place] [id number]
--- NOTE | 2018-02-05 13:08 | PDOC ---
WAIJOHN [employer] 02/05/18 1308: CARDIO Progress Notes Date and Time Date of Service 02/05/18 Time of Evaluation 1303 Subjective Subjective: No Chest Pain, No shortness of breath, No Palpitations, Other ( intermittent RUQ abd pain; some nausea) Vitals Vitals Vital Signs Date Time Temp Pulse Resp B/P (MAP) Pulse Ox O2 Delivery O2 Flow Rate FiO2 02/05/18 12:27 99.1 87 20 171/80 89 BiPAP/CPAP 2.0 99.1 Weight Weight [ ] Input and Output Intake and Output Intake and Output 02/05/18 07:00 Intake Total 346 ml Output Total 580 ml Balance -234 ml Intake Oral 0 ml IV Total 346 ml Output Urine Total 580 ml # Voids 2 Laboratory Labs Laboratory Tests Test 02/04/18 15:00 02/04/18 15:15 02/04/18 15:51 02/04/18 21:20 Potassium Level 6.0 mmol/L (3.5-5.1) 5.9 mmol/L (3.5-5.1) Lactic Acid Level 3.1 mmol/L (0.4-2.0) 1.5 mmol/L (0.4-2.0) White Blood Count 24.9 x10^3/uL (4.0-11.0) 25.5 x10^3/uL (4.0-11.0) Red Blood Count 3.64 x10^6/uL (4.30-5.70) 3.48 x10^6/uL (4.30-5.70) Hemoglobin 11.5 g/dL (13.0-17.5) 10.9 g/dL (13.0-17.5) Hematocrit 35.5 % (39.0-53.0) 33.6 % (39.0-53.0) Mean Corpuscular Volume 98 fL (79-100) 97 fL (79-100) Mean Corpuscular Hemoglobin 32 pg (25-35) 31 pg (25-35) Mean Corpuscular Hemoglobin Concent 32 g/dL (31-37) 33 g/dL (31-37) Red Cell Distribution Width 14.8 % (11.5-14.5) 15.1 % (11.5-14.5) Platelet Count 184 x10^3/uL (140-400) 155 x10^3/uL (140-400) O2 Saturation 92 % (92-99) Arterial Blood pH 7.31 (7.35-7.45) Arterial Blood pCO2 at Patient Temp 47 mmHg (35-46) Arterial Blood pO2 at Patient Temp 66 mmHg (65-108) Arterial Blood HCO3 23 mmol/L (21-28) Arterial Blood Base Excess -4 mmol/L (-3-3) FiO2 45 Neutrophils (%) (Auto) 89 % (31-73) Lymphocytes (%) (Auto) 2 % (24-48) Monocytes (%) (Auto) 8 % (0-9) Eosinophils (%) (Auto) 0 % (0-3) Basophils (%) (Auto) 0 % (0-3) Neutrophils # (Auto) 22.7 x10^3uL (1.8-7.7) Lymphocytes # (Auto) 0.5 x10^3/uL (1.0-4.8) Monocytes # (Auto) 2.1 x10^3/uL (0.0-1.1) Eosinophils # (Auto) 0.0 x10^3/uL (0.0-0.7) Basophils # (Auto) 0.1 x10^3/uL (0.0-0.2) Segmented Neutrophils % 90 % (35-66) Band Neutrophils % 2 % (0-9) Lymphocytes % 3 % (24-48) Monocytes % 5 % (0-10) Platelet Estimate Adequate (ADEQUATE) Sodium Level 134 mmol/L (136-145) Chloride Level 103 mmol/L (98-107) Carbon Dioxide Level 26 mmol/L (21-32) Anion Gap 5 (6-14) Blood Urea Nitrogen 64 mg/dL (8-26) Creatinine 3.4 mg/dL (0.7-1.3) Estimated GFR (Cockcroft-Gault) 17.7 Glucose Level 117 mg/dL (70-99) Calcium Level 10.3 mg/dL (8.5-10.1) Test 02/05/18 04:00 02/05/18 07:55 White Blood Count 24.7 x10^3/uL (4.0-11.0) Red Blood Count 3.25 x10^6/uL (4.30-5.70) Hemoglobin 10.3 g/dL (13.0-17.5) Hematocrit 31.4 % (39.0-53.0) Mean Corpuscular Volume 97 fL (79-100) Mean Corpuscular Hemoglobin 32 pg (25-35) Mean Corpuscular Hemoglobin Concent 33 g/dL (31-37) Red Cell Distribution Width 14.8 % (11.5-14.5) Platelet Count 134 x10^3/uL (140-400) Neutrophils (%) (Auto) 91 % (31-73) Lymphocytes (%) (Auto) 2 % (24-48) Monocytes (%) (Auto) 7 % (0-9) Eosinophils (%) (Auto) 0 % (0-3) Basophils (%) (Auto) 0 % (0-3) Neutrophils # (Auto) 22.4 x10^3uL (1.8-7.7) Lymphocytes # (Auto) 0.5 x10^3/uL (1.0-4.8) Monocytes # (Auto) 1.7 x10^3/uL (0.0-1.1) Eosinophils # (Auto) 0.0 x10^3/uL (0.0-0.7) Basophils # (Auto) 0.1 x10^3/uL (0.0-0.2) Sodium Level 135 mmol/L (136-145) Potassium Level 5.7 mmol/L (3.5-5.1) Chloride Level 103 mmol/L (98-107) Carbon Dioxide Level 24 mmol/L (21-32) Anion Gap 8 (6-14) Blood Urea Nitrogen 72 mg/dL (8-26) Creatinine 3.6 mg/dL (0.7-1.3) Estimated GFR (Cockcroft-Gault) 16.6 BUN/Creatinine Ratio 20 (6-20) Glucose Level 109 mg/dL (70-99) Calcium Level 10.4 mg/dL (8.5-10.1) Total Bilirubin 3.4 mg/dL (0.2-1.0) Aspartate Amino Transf (AST/SGOT) 18 U/L (15-37) Alanine Aminotransferase (ALT/SGPT) 14 U/L (16-63) Alkaline Phosphatase 68 U/L (46-116) Total Protein 6.5 g/dL (6.4-8.2) Albumin 2.8 g/dL (3.4-5.0) Albumin/Globulin Ratio 0.8 (1.0-1.7) Amylase Level 33 U/L (25-115) Lipase 70 U/L (73-393) O2 Saturation 94 % (92-99) Arterial Blood pH 7.29 (7.35-7.45) Arterial Blood pCO2 at Patient Temp 51 mmHg (35-46) Arterial Blood pO2 at Patient Temp 74 mmHg (65-108) Arterial Blood HCO3 24 mmol/L (21-28) Arterial Blood Base Excess -3 mmol/L (-3-3) FiO2 98 Physical Exam HEENT: Neck Supple W Full Motion Chest: Symmetric LUNGS: Clear to Auscultation Heart: S1S2, RRR (SR) Abdomen: Soft N/T, Other (S/P lap vilma) Extremities: No Edema, No Calf Tenderness Neurology: follow commands, other (drowsy/groggy after ERCP) Assessment Assessment 1. Symptomatic cholelithiasis: --S/P Lap vilma --underwent ERCP 2. JAYDON on CKD --continue IVF 3. Hyperkalemia 4. PAFIB: --SR with intermittent pacing. 5. PPM in situ: --Biotronik with recent check within normal parameters with no significant arrhythmias. 6. Chronic diastolic CHF: --recent EF 50-55%, compensated 7. CAD --asymptomatic, continue secondary prevention JONO REYEZ MD 02/05/181954: CARDIO Progress Notes Assessment Assessment Patient seen and examined. Agree with SUPERVISOR GENERAL's assessment and plan. CAD status stable Maintaining sinus rhythm Chr diast HF compensated Continue post of care per JOHN JOHN APRN Feb 05, 2018 13:08 JONO REYEZ MD Feb 05, 2018 19:55
[2018-02-05 15:11] LABS: BASE EXCESS ABG -5 mmol/L (-3-3); HCO3 ABG 22 mmol/L (21-28); PCO2 ABG 46 mmHg (35-46); PO2 ABG 57 mmHg (65-108); SAT O2 ABG 89 % (92-99)
[2018-02-05 15:14] LABS: FIO2 ABG 35
--- NOTE | 2018-02-05 15:23 | PDOC ---
Provider Note Provider Note SURG back from ERCP sleepy vss I am out of town next week Dr Norwood et al to follow in my absence no new surgical recs WES JOYCE MD Feb 05, 2018 15:23
[2018-02-06] VITALS (20 sets, daily range): BP systolic 119–176; BP diastolic 58–75
[2018-02-06] MEDS: HALOPERIDOL LACTATE 5 MG/ML VIAL. IVP PRN ×2 (03:45→22:52)
[2018-02-06] MEDS: IV NORMAL SALINE 1000ML BAG 1,000 ML IV SCH (04:00)
[2018-02-06 05:01] LABS: BASO % 0 % (0-3); EOS % 0 % (0-3); HEMATOCRIT 28.1 % (39.0-53.0); HEMOGLOBIN 9.2 g/dL (13.0-17.5); LYMPH # 0.4 x10^3/uL (1.0-4.8); LYMPH % 2 % (24-48); MEAN CORPUSCULAR HEMOGLOBIN 32 pg (25-35); MEAN CORPUSCULAR HGB CONC 33 g/dL (31-37); MEAN CORPUSCULAR VOLUME 96 fL (79-100); MONO # 1.2 x10^3/uL (0.0-1.1); MONO % 6 % (0-9); NEUT # 16.7 x10^3uL (1.8-7.7); NEUT % 91 % (31-73); PLATELET COUNT 109 x10^3/uL (140-400); RED BLOOD COUNT 2.91 x10^6/uL (4.30-5.70); RED CELL DISTRIBUTION WIDTH 14.8 % (11.5-14.5); WHITE BLOOD COUNT 18.3 x10^3/uL (4.0-11.0)
[2018-02-06 05:23] LABS: ALBUMIN 2.4 g/dL (3.4-5.0); ALBUMIN/GLOBULIN RATIO 0.6 (1.0-1.7); CALCIUM 10.7 mg/dL (8.5-10.1); CREATININE 3.2 mg/dL (0.7-1.3); POTASSIUM 5.1 mmol/L (3.5-5.1); TOTAL BILIRUBIN 3.3 mg/dL (0.2-1.0); TOTAL PROTEIN 6.1 g/dL (6.4-8.2)
[2018-02-06] MEDS: CIPROFLOXACIN 400MG PREMIX 200 ML IV SCH (08:10)
[2018-02-06] MEDS: MORPHINE SULFATE 10 MG/ML VIAL. IV PRN ×2 (08:15→17:35)
[2018-02-06] MEDS: IPRATRPIUM/ALBUTEROL 0.5/2.5MG 3 ML NEBU. NEB SCH ×4 (08:33→19:32)
--- NOTE | 2018-02-06 08:34 | PDOC ---
SURGICAL PROGRESS NOTE Subjective would really like something to drink no n/v pain managed Vital Signs Vital Signs Date Time Temp Pulse Resp B/P (MAP) Pulse Ox O2 Delivery O2 Flow Rate FiO2 02/06/18 08:15 97 Venturi Mask 12.0 02/06/18 06:00 84 21 165/75 (105) 02/06/18 04:00 98.2 98.2 I&O Intake and Output 02/06/18 07:00 Intake Total 2859 ml Output Total 1621 ml Balance 1238 ml Intake Oral 0 ml IV Total 2859 ml Output Urine Total 1621 ml General: Alert, Oriented X3, Cooperative, No acute distress Abdomen: Soft, Other (lap sites c/d/i, no erythema ) Labs Laboratory Tests Test 02/04/18 09:25 02/04/18 12:50 02/04/18 15:00 02/04/18 15:15 Sodium Level 135 mmol/L (136-145) 136 mmol/L (136-145) Potassium Level 6.1 mmol/L (3.5-5.1) 6.0 mmol/L (3.5-5.1) 6.0 mmol/L (3.5-5.1) Chloride Level 104 mmol/L (98-107) 104 mmol/L (98-107) Carbon Dioxide Level 25 mmol/L (21-32) 27 mmol/L (21-32) Anion Gap 6 (6-14) 5 (6-14) Blood Urea Nitrogen 53 mg/dL (8-26) 57 mg/dL (8-26) Creatinine 2.1 mg/dL (0.7-1.3) 2.3 mg/dL (0.7-1.3) Estimated GFR (Cockcroft-Gault) 30.9 27.8 Glucose Level 125 mg/dL (70-99) 125 mg/dL (70-99) Calcium Level 10.3 mg/dL (8.5-10.1) 11.0 mg/dL (8.5-10.1) Total Bilirubin 2.0 mg/dL (0.2-1.0) Direct Bilirubin 0.5 mg/dL (0.0-0.2) Aspartate Amino Transf (AST/SGOT) 30 U/L (15-37) Alanine Aminotransferase (ALT/SGPT) 27 U/L (16-63) Alkaline Phosphatase 74 U/L (46-116) Total Protein 7.1 g/dL (6.4-8.2) Albumin 3.1 g/dL (3.4-5.0) Lactic Acid Level 3.1 mmol/L (0.4-2.0) White Blood Count 24.9 x10^3/uL (4.0-11.0) Red Blood Count 3.64 x10^6/uL (4.30-5.70) Hemoglobin 11.5 g/dL (13.0-17.5) Hematocrit 35.5 % (39.0-53.0) Mean Corpuscular Volume 98 fL (79-100) Mean Corpuscular Hemoglobin 32 pg (25-35) Mean Corpuscular Hemoglobin Concent 32 g/dL (31-37) Red Cell Distribution Width 14.8 % (11.5-14.5) Platelet Count 184 x10^3/uL (140-400) Test 02/04/18 15:51 02/04/18 21:20 02/05/18 04:00 02/05/18 07:55 O2 Saturation 92 % (92-99) 94 % (92-99) Arterial Blood pH 7.31 (7.35-7.45) 7.29 (7.35-7.45) Arterial Blood pCO2 at Patient Temp 47 mmHg (35-46) 51 mmHg (35-46) Arterial Blood pO2 at Patient Temp 66 mmHg (65-108) 74 mmHg (65-108) Arterial Blood HCO3 23 mmol/L (21-28) 24 mmol/L (21-28) Arterial Blood Base Excess -4 mmol/L (-3-3) -3 mmol/L (-3-3) FiO2 45 98 White Blood Count 25.5 x10^3/uL (4.0-11.0) 24.7 x10^3/uL (4.0-11.0) Red Blood Count 3.48 x10^6/uL (4.30-5.70) 3.25 x10^6/uL (4.30-5.70) Hemoglobin 10.9 g/dL (13.0-17.5) 10.3 g/dL (13.0-17.5) Hematocrit 33.6 % (39.0-53.0) 31.4 % (39.0-53.0) Mean Corpuscular Volume 97 fL (79-100) 97 fL (79-100) Mean Corpuscular Hemoglobin 31 pg (25-35) 32 pg (25-35) Mean Corpuscular Hemoglobin Concent 33 g/dL (31-37) 33 g/dL (31-37) Red Cell Distribution Width 15.1 % (11.5-14.5) 14.8 % (11.5-14.5) Platelet Count 155 x10^3/uL (140-400) 134 x10^3/uL (140-400) Neutrophils (%) (Auto) 89 % (31-73) 91 % (31-73) Lymphocytes (%) (Auto) 2 % (24-48) 2 % (24-48) Monocytes (%) (Auto) 8 % (0-9) 7 % (0-9) Eosinophils (%) (Auto) 0 % (0-3) 0 % (0-3) Basophils (%) (Auto) 0 % (0-3) 0 % (0-3) Neutrophils # (Auto) 22.7 x10^3uL (1.8-7.7) 22.4 x10^3uL (1.8-7.7) Lymphocytes # (Auto) 0.5 x10^3/uL (1.0-4.8) 0.5 x10^3/uL (1.0-4.8) Monocytes # (Auto) 2.1 x10^3/uL (0.0-1.1) 1.7 x10^3/uL (0.0-1.1) Eosinophils # (Auto) 0.0 x10^3/uL (0.0-0.7) 0.0 x10^3/uL (0.0-0.7) Basophils # (Auto) 0.1 x10^3/uL (0.0-0.2) 0.1 x10^3/uL (0.0-0.2) Segmented Neutrophils % 90 % (35-66) Band Neutrophils % 2 % (0-9) Lymphocytes % 3 % (24-48) Monocytes % 5 % (0-10) Platelet Estimate Adequate (ADEQUATE) Sodium Level 134 mmol/L (136-145) 135 mmol/L (136-145) Potassium Level 5.9 mmol/L (3.5-5.1) 5.7 mmol/L (3.5-5.1) Chloride Level 103 mmol/L (98-107) 103 mmol/L (98-107) Carbon Dioxide Level 26 mmol/L (21-32) 24 mmol/L (21-32) Anion Gap 5 (6-14) 8 (6-14) Blood Urea Nitrogen 64 mg/dL (8-26) 72 mg/dL (8-26) Creatinine 3.4 mg/dL (0.7-1.3) 3.6 mg/dL (0.7-1.3) Estimated GFR (Cockcroft-Gault) 17.7 16.6 Glucose Level 117 mg/dL (70-99) 109 mg/dL (70-99) Lactic Acid Level 1.5 mmol/L (0.4-2.0) Calcium Level 10.3 mg/dL (8.5-10.1) 10.4 mg/dL (8.5-10.1) BUN/Creatinine Ratio 20 (6-20) Total Bilirubin 3.4 mg/dL (0.2-1.0) Aspartate Amino Transf (AST/SGOT) 18 U/L (15-37) Alanine Aminotransferase (ALT/SGPT) 14 U/L (16-63) Alkaline Phosphatase 68 U/L (46-116) Total Protein 6.5 g/dL (6.4-8.2) Albumin 2.8 g/dL (3.4-5.0) Albumin/Globulin Ratio 0.8 (1.0-1.7) Amylase Level 33 U/L (25-115) Lipase 70 U/L (73-393) Test 02/05/18 15:00 02/06/18 03:00 O2 Saturation 89 % (92-99) Arterial Blood pH 7.30 (7.35-7.45) Arterial Blood pCO2 at Patient Temp 46 mmHg (35-46) Arterial Blood pO2 at Patient Temp 57 mmHg (65-108) Arterial Blood HCO3 22 mmol/L (21-28) Arterial Blood Base Excess -5 mmol/L (-3-3) FiO2 35 White Blood Count 18.3 x10^3/uL (4.0-11.0) Red Blood Count 2.91 x10^6/uL (4.30-5.70) Hemoglobin 9.2 g/dL (13.0-17.5) Hematocrit 28.1 % (39.0-53.0) Mean Corpuscular Volume 96 fL (79-100) Mean Corpuscular Hemoglobin 32 pg (25-35) Mean Corpuscular Hemoglobin Concent 33 g/dL (31-37) Red Cell Distribution Width 14.8 % (11.5-14.5) Platelet Count 109 x10^3/uL (140-400) Neutrophils (%) (Auto) 91 % (31-73) Lymphocytes (%) (Auto) 2 % (24-48) Monocytes (%) (Auto) 6 % (0-9) Eosinophils (%) (Auto) 0 % (0-3) Basophils (%) (Auto) 0 % (0-3) Neutrophils # (Auto) 16.7 x10^3uL (1.8-7.7) Lymphocytes # (Auto) 0.4 x10^3/uL (1.0-4.8) Monocytes # (Auto) 1.2 x10^3/uL (0.0-1.1) Eosinophils # (Auto) 0.0 x10^3/uL (0.0-0.7) Basophils # (Auto) 0.0 x10^3/uL (0.0-0.2) Sodium Level 139 mmol/L (136-145) Potassium Level 5.1 mmol/L (3.5-5.1) Chloride Level 105 mmol/L (98-107) Carbon Dioxide Level 25 mmol/L (21-32) Anion Gap 9 (6-14) Blood Urea Nitrogen 75 mg/dL (8-26) Creatinine 3.2 mg/dL (0.7-1.3) Estimated GFR (Cockcroft-Gault) 19.0 BUN/Creatinine Ratio 23 (6-20) Glucose Level 83 mg/dL (70-99) Calcium Level 10.7 mg/dL (8.5-10.1) Total Bilirubin 3.3 mg/dL (0.2-1.0) Aspartate Amino Transf (AST/SGOT) 21 U/L (15-37) Alanine Aminotransferase (ALT/SGPT) 17 U/L (16-63) Alkaline Phosphatase 59 U/L (46-116) Total Protein 6.1 g/dL (6.4-8.2) Albumin 2.4 g/dL (3.4-5.0) Albumin/Globulin Ratio 0.6 (1.0-1.7) Amylase Level 40 U/L (25-115) Lipase 57 U/L (73-393) Laboratory Tests Test 02/05/18 15:00 02/06/18 03:00 O2 Saturation 89 % (92-99) Arterial Blood pH 7.30 (7.35-7.45) Arterial Blood pCO2 at Patient Temp 46 mmHg (35-46) Arterial Blood pO2 at Patient Temp 57 mmHg (65-108) Arterial Blood HCO3 22 mmol/L (21-28) Arterial Blood Base Excess -5 mmol/L (-3-3) FiO2 35 White Blood Count 18.3 x10^3/uL (4.0-11.0) Red Blood Count 2.91 x10^6/uL (4.30-5.70) Hemoglobin 9.2 g/dL (13.0-17.5) Hematocrit 28.1 % (39.0-53.0) Mean Corpuscular Volume 96 fL (79-100) Mean Corpuscular Hemoglobin 32 pg (25-35) Mean Corpuscular Hemoglobin Concent 33 g/dL (31-37) Red Cell Distribution Width 14.8 % (11.5-14.5) Platelet Count 109 x10^3/uL (140-400) Neutrophils (%) (Auto) 91 % (31-73) Lymphocytes (%) (Auto) 2 % (24-48) Monocytes (%) (Auto) 6 % (0-9) Eosinophils (%) (Auto) 0 % (0-3) Basophils (%) (Auto) 0 % (0-3) Neutrophils # (Auto) 16.7 x10^3uL (1.8-7.7) Lymphocytes # (Auto) 0.4 x10^3/uL (1.0-4.8) Monocytes # (Auto) 1.2 x10^3/uL (0.0-1.1) Eosinophils # (Auto) 0.0 x10^3/uL (0.0-0.7) Basophils # (Auto) 0.0 x10^3/uL (0.0-0.2) Sodium Level 139 mmol/L (136-145) Potassium Level 5.1 mmol/L (3.5-5.1) Chloride Level 105 mmol/L (98-107) Carbon Dioxide Level 25 mmol/L (21-32) Anion Gap 9 (6-14) Blood Urea Nitrogen 75 mg/dL (8-26) Creatinine 3.2 mg/dL (0.7-1.3) Estimated GFR (Cockcroft-Gault) 19.0 BUN/Creatinine Ratio 23 (6-20) Glucose Level 83 mg/dL (70-99) Calcium Level 10.7 mg/dL (8.5-10.1) Total Bilirubin 3.3 mg/dL (0.2-1.0) Aspartate Amino Transf (AST/SGOT) 21 U/L (15-37) Alanine Aminotransferase (ALT/SGPT) 17 U/L (16-63) Alkaline Phosphatase 59 U/L (46-116) Total Protein 6.1 g/dL (6.4-8.2) Albumin 2.4 g/dL (3.4-5.0) Albumin/Globulin Ratio 0.6 (1.0-1.7) Amylase Level 40 U/L (25-115) Lipase 57 U/L (73-393) Problem List s/p vilma, ERCP start sips of clears today if ok with GI also YOLA GROVE APRN Feb 06, 2018 08:34
[2018-02-06] MEDS: DOCUSATE SODIUM 100 MG CAPSULE. PO SCH ×2 (08:40→21:00)
--- NOTE | 2018-02-06 10:24 | PDOC ---
G I PROGRESS NOTE Subjective Some abdominal discomfort. No N, V. Says passing flatus. Physical Exam Lungs clear anteriorly. RRR Abdomen soft, protuberant, mildly tender. Don't hear many bowel sounds. Review of Relevant I have reviewed the following items aron (where applicable) has been applied. Labs Laboratory Tests Test 02/04/18 12:50 02/04/18 15:00 02/04/18 15:15 02/04/18 15:51 Sodium Level 136 mmol/L (136-145) Potassium Level 6.0 mmol/L (3.5-5.1) 6.0 mmol/L (3.5-5.1) Chloride Level 104 mmol/L (98-107) Carbon Dioxide Level 27 mmol/L (21-32) Anion Gap 5 (6-14) Blood Urea Nitrogen 57 mg/dL (8-26) Creatinine 2.3 mg/dL (0.7-1.3) Estimated GFR (Cockcroft-Gault) 27.8 Glucose Level 125 mg/dL (70-99) Calcium Level 11.0 mg/dL (8.5-10.1) Lactic Acid Level 3.1 mmol/L (0.4-2.0) White Blood Count 24.9 x10^3/uL (4.0-11.0) Red Blood Count 3.64 x10^6/uL (4.30-5.70) Hemoglobin 11.5 g/dL (13.0-17.5) Hematocrit 35.5 % (39.0-53.0) Mean Corpuscular Volume 98 fL (79-100) Mean Corpuscular Hemoglobin 32 pg (25-35) Mean Corpuscular Hemoglobin Concent 32 g/dL (31-37) Red Cell Distribution Width 14.8 % (11.5-14.5) Platelet Count 184 x10^3/uL (140-400) O2 Saturation 92 % (92-99) Arterial Blood pH 7.31 (7.35-7.45) Arterial Blood pCO2 at Patient Temp 47 mmHg (35-46) Arterial Blood pO2 at Patient Temp 66 mmHg (65-108) Arterial Blood HCO3 23 mmol/L (21-28) Arterial Blood Base Excess -4 mmol/L (-3-3) FiO2 45 Test 02/04/18 21:20 02/05/18 04:00 02/05/18 07:55 02/05/18 15:00 White Blood Count 25.5 x10^3/uL (4.0-11.0) 24.7 x10^3/uL (4.0-11.0) Red Blood Count 3.48 x10^6/uL (4.30-5.70) 3.25 x10^6/uL (4.30-5.70) Hemoglobin 10.9 g/dL (13.0-17.5) 10.3 g/dL (13.0-17.5) Hematocrit 33.6 % (39.0-53.0) 31.4 % (39.0-53.0) Mean Corpuscular Volume 97 fL (79-100) 97 fL (79-100) Mean Corpuscular Hemoglobin 31 pg (25-35) 32 pg (25-35) Mean Corpuscular Hemoglobin Concent 33 g/dL (31-37) 33 g/dL (31-37) Red Cell Distribution Width 15.1 % (11.5-14.5) 14.8 % (11.5-14.5) Platelet Count 155 x10^3/uL (140-400) 134 x10^3/uL (140-400) Neutrophils (%) (Auto) 89 % (31-73) 91 % (31-73) Lymphocytes (%) (Auto) 2 % (24-48) 2 % (24-48) Monocytes (%) (Auto) 8 % (0-9) 7 % (0-9) Eosinophils (%) (Auto) 0 % (0-3) 0 % (0-3) Basophils (%) (Auto) 0 % (0-3) 0 % (0-3) Neutrophils # (Auto) 22.7 x10^3uL (1.8-7.7) 22.4 x10^3uL (1.8-7.7) Lymphocytes # (Auto) 0.5 x10^3/uL (1.0-4.8) 0.5 x10^3/uL (1.0-4.8) Monocytes # (Auto) 2.1 x10^3/uL (0.0-1.1) 1.7 x10^3/uL (0.0-1.1) Eosinophils # (Auto) 0.0 x10^3/uL (0.0-0.7) 0.0 x10^3/uL (0.0-0.7) Basophils # (Auto) 0.1 x10^3/uL (0.0-0.2) 0.1 x10^3/uL (0.0-0.2) Segmented Neutrophils % 90 % (35-66) Band Neutrophils % 2 % (0-9) Lymphocytes % 3 % (24-48) Monocytes % 5 % (0-10) Platelet Estimate Adequate (ADEQUATE) Sodium Level 134 mmol/L (136-145) 135 mmol/L (136-145) Potassium Level 5.9 mmol/L (3.5-5.1) 5.7 mmol/L (3.5-5.1) Chloride Level 103 mmol/L (98-107) 103 mmol/L (98-107) Carbon Dioxide Level 26 mmol/L (21-32) 24 mmol/L (21-32) Anion Gap 5 (6-14) 8 (6-14) Blood Urea Nitrogen 64 mg/dL (8-26) 72 mg/dL (8-26) Creatinine 3.4 mg/dL (0.7-1.3) 3.6 mg/dL (0.7-1.3) Estimated GFR (Cockcroft-Gault) 17.7 16.6 Glucose Level 117 mg/dL (70-99) 109 mg/dL (70-99) Lactic Acid Level 1.5 mmol/L (0.4-2.0) Calcium Level 10.3 mg/dL (8.5-10.1) 10.4 mg/dL (8.5-10.1) BUN/Creatinine Ratio 20 (6-20) Total Bilirubin 3.4 mg/dL (0.2-1.0) Aspartate Amino Transf (AST/SGOT) 18 U/L (15-37) Alanine Aminotransferase (ALT/SGPT) 14 U/L (16-63) Alkaline Phosphatase 68 U/L (46-116) Total Protein 6.5 g/dL (6.4-8.2) Albumin 2.8 g/dL (3.4-5.0) Albumin/Globulin Ratio 0.8 (1.0-1.7) Amylase Level 33 U/L (25-115) Lipase 70 U/L (73-393) O2 Saturation 94 % (92-99) 89 % (92-99) Arterial Blood pH 7.29 (7.35-7.45) 7.30 (7.35-7.45) Arterial Blood pCO2 at Patient Temp 51 mmHg (35-46) 46 mmHg (35-46) Arterial Blood pO2 at Patient Temp 74 mmHg (65-108) 57 mmHg (65-108) Arterial Blood HCO3 24 mmol/L (21-28) 22 mmol/L (21-28) Arterial Blood Base Excess -3 mmol/L (-3-3) -5 mmol/L (-3-3) FiO2 98 35 Test 02/06/18 03:00 White Blood Count 18.3 x10^3/uL (4.0-11.0) Red Blood Count 2.91 x10^6/uL (4.30-5.70) Hemoglobin 9.2 g/dL (13.0-17.5) Hematocrit 28.1 % (39.0-53.0) Mean Corpuscular Volume 96 fL (79-100) Mean Corpuscular Hemoglobin 32 pg (25-35) Mean Corpuscular Hemoglobin Concent 33 g/dL (31-37) Red Cell Distribution Width 14.8 % (11.5-14.5) Platelet Count 109 x10^3/uL (140-400) Neutrophils (%) (Auto) 91 % (31-73) Lymphocytes (%) (Auto) 2 % (24-48) Monocytes (%) (Auto) 6 % (0-9) Eosinophils (%) (Auto) 0 % (0-3) Basophils (%) (Auto) 0 % (0-3) Neutrophils # (Auto) 16.7 x10^3uL (1.8-7.7) Lymphocytes # (Auto) 0.4 x10^3/uL (1.0-4.8) Monocytes # (Auto) 1.2 x10^3/uL (0.0-1.1) Eosinophils # (Auto) 0.0 x10^3/uL (0.0-0.7) Basophils # (Auto) 0.0 x10^3/uL (0.0-0.2) Sodium Level 139 mmol/L (136-145) Potassium Level 5.1 mmol/L (3.5-5.1) Chloride Level 105 mmol/L (98-107) Carbon Dioxide Level 25 mmol/L (21-32) Anion Gap 9 (6-14) Blood Urea Nitrogen 75 mg/dL (8-26) Creatinine 3.2 mg/dL (0.7-1.3) Estimated GFR (Cockcroft-Gault) 19.0 BUN/Creatinine Ratio 23 (6-20) Glucose Level 83 mg/dL (70-99) Calcium Level 10.7 mg/dL (8.5-10.1) Total Bilirubin 3.3 mg/dL (0.2-1.0) Aspartate Amino Transf (AST/SGOT) 21 U/L (15-37) Alanine Aminotransferase (ALT/SGPT) 17 U/L (16-63) Alkaline Phosphatase 59 U/L (46-116) Total Protein 6.1 g/dL (6.4-8.2) Albumin 2.4 g/dL (3.4-5.0) Albumin/Globulin Ratio 0.6 (1.0-1.7) Amylase Level 40 U/L (25-115) Lipase 57 U/L (73-393) Laboratory Tests Test 02/05/18 15:00 02/06/18 03:00 O2 Saturation 89 % (92-99) Arterial Blood pH 7.30 (7.35-7.45) Arterial Blood pCO2 at Patient Temp 46 mmHg (35-46) Arterial Blood pO2 at Patient Temp 57 mmHg (65-108) Arterial Blood HCO3 22 mmol/L (21-28) Arterial Blood Base Excess -5 mmol/L (-3-3) FiO2 35 White Blood Count 18.3 x10^3/uL (4.0-11.0) Red Blood Count 2.91 x10^6/uL (4.30-5.70) Hemoglobin 9.2 g/dL (13.0-17.5) Hematocrit 28.1 % (39.0-53.0) Mean Corpuscular Volume 96 fL (79-100) Mean Corpuscular Hemoglobin 32 pg (25-35) Mean Corpuscular Hemoglobin Concent 33 g/dL (31-37) Red Cell Distribution Width 14.8 % (11.5-14.5) Platelet Count 109 x10^3/uL (140-400) Neutrophils (%) (Auto) 91 % (31-73) Lymphocytes (%) (Auto) 2 % (24-48) Monocytes (%) (Auto) 6 % (0-9) Eosinophils (%) (Auto) 0 % (0-3) Basophils (%) (Auto) 0 % (0-3) Neutrophils # (Auto) 16.7 x10^3uL (1.8-7.7) Lymphocytes # (Auto) 0.4 x10^3/uL (1.0-4.8) Monocytes # (Auto) 1.2 x10^3/uL (0.0-1.1) Eosinophils # (Auto) 0.0 x10^3/uL (0.0-0.7) Basophils # (Auto) 0.0 x10^3/uL (0.0-0.2) Sodium Level 139 mmol/L (136-145) Potassium Level 5.1 mmol/L (3.5-5.1) Chloride Level 105 mmol/L (98-107) Carbon Dioxide Level 25 mmol/L (21-32) Anion Gap 9 (6-14) Blood Urea Nitrogen 75 mg/dL (8-26) Creatinine 3.2 mg/dL (0.7-1.3) Estimated GFR (Cockcroft-Gault) 19.0 BUN/Creatinine Ratio 23 (6-20) Glucose Level 83 mg/dL (70-99) Calcium Level 10.7 mg/dL (8.5-10.1) Total Bilirubin 3.3 mg/dL (0.2-1.0) Aspartate Amino Transf (AST/SGOT) 21 U/L (15-37) Alanine Aminotransferase (ALT/SGPT) 17 U/L (16-63) Alkaline Phosphatase 59 U/L (46-116) Total Protein 6.1 g/dL (6.4-8.2) Albumin 2.4 g/dL (3.4-5.0) Albumin/Globulin Ratio 0.6 (1.0-1.7) Amylase Level 40 U/L (25-115) Lipase 57 U/L (73-393) Microbiology 02/04/18 Blood Culture - Preliminary, Resulted NO GROWTH AFTER 1 DAY Tbili 3, other LFT's and lipase normal. WBC's down. Medications Current Medications Ondansetron HCl (Zofran) 4 mg PRN Q6HRS PRN IV NAUSEA/VOMITING Last administered on 02/04/18at 04:08; Start 02/03/18 at 07:00; Stop 02/04/18 at 06:59; Status DC Fentanyl Citrate (Fentanyl 2ml Vial) 25 mcg PRN Q5MIN PRN IV MILD PAIN Last administered on 02/03/18at 12:13; Start 02/03/18 at 07:00; Stop 02/04/18 at 06:59; Status DC Fentanyl Citrate (Fentanyl 2ml Vial) 50 mcg PRN Q5MIN PRN IV MODERATE TO SEVERE PAIN; Start 02/03/18 at 07:00; Stop 02/04/18 at 06:59; Status DC Morphine Sulfate (Morphine Sulfate) 1 mg PRN Q10MIN PRN IV SEVERE PAIN Last administered on 02/03/18at 11:42; Start 02/03/18 at 07:00; Stop 02/04/18 at 06:59; Status DC Ringer's Solution 1,000 ml @ 30 mls/hr Q24H IV Last administered on 02/03/18at 09:13; Start 02/03/18 at 07:00; Stop 02/03/18 at 18:59; Status DC Lidocaine HCl (Xylocaine-Mpf 1% Vial) 2 ml PRN 1X PRN ID PRIOR TO IV START; Start 02/03/18 at 07:00; Stop 02/04/18 at 06:59; Status DC Prochlorperazine Edisylate (Compazine) 5 mg PACU PRN PRN IV NAUSEA, MRX1; Start 02/03/18 at 07:00; Stop 02/04/18 at 06:59; Status DC Cefazolin Sodium/ Dextrose 50 ml @ 100 mls/hr 1X PREOP PRN IV PRIOR TO SURGERY Last administered on 02/03/18at 09:35; Start 02/03/18 at 08:00 Fentanyl Citrate (Fentanyl 2ml Vial) 100 mcg STK-MED ONCE .ROUTE ; Start at 08:09; Stop 02/03/18 at 08:10; Status DC Rocuronium [place] (Zemuron) 50 mg STK-MED ONCE .ROUTE ; Start 02/03/18 at 08:09 ; Stop 02/03/18 at 08:10; Status DC Desflurane (Suprane) 60 ml STK-MED ONCE IH ; Start 02/03/18 at 08:09; Stop at 08:10; Status DC Dexamethasone Sodium Phosphate (Decadron) 20 mg STK-MED ONCE .ROUTE ; Start 02/03 at 08:09; Stop 02/03/18 at 08:10; Status DC Propofol 20 ml @ As Directed STK-MED ONCE IV ; Start 02/03/18 at 08:09; Stop 02/03 at 08:10; Status DC Lidocaine HCl (Lidocaine Pf 2% Vial) 5 ml STK-MED ONCE .ROUTE ; Start 02/03/18 at 08:09; Stop 02/03/18 at 08:10; Status DC Ondansetron HCl (Zofran) 4 mg STK-MED ONCE .ROUTE ; Start 02/03/18 at 08:09; Stop 02/03/18 at 08:10; Status DC Ketorolac Tromethamine (Toradol For Or Only) 30 mg STK-MED ONCE INJ ; Start 02/03 at 08:09; Stop 02/03/18 at 08:10; Status DC Ephedrine Sulfate (ePHEDrine PF IN SALINE SYRINGE) 50 mg STK-MED ONCE IV ; Start 02/03/18 at 08:15; Stop 02/03/18 at 08:16; Status DC Bupivacaine HCl/ Epinephrine Bitart (Marcaine-Epi 0.5%-[id number]) 50 ml STK-MED ONCE .ROUTE Last administered on 02/03/18at 09:49; Start 02/03/18 at 07:56; Stop 02/03/18 at 08:57; Status DC Iohexol (Omnipaque 300 Mg/ml) 100 ml STK-MED ONCE .ROUTE Last administered on at 09:49; Start 02/03/18 at 07:56; Stop 02/03/18 at 08:58; Status DC Phenylephrine HCl (PHENYLEPHRINE in 0.9% NACL PF) 1 mg STK-MED ONCE IV ; Start 02/03/18 at 09:24; Stop 02/03/18 at 09:25; Status DC Glycopyrrolate (Robinul) 1 mg STK-MED ONCE .ROUTE ; Start 02/03/18 at 09:55; Stop 02/03/18 at 09:56; Status DC Neostigmine Methylsulfate (Neostigmine Methylsulfate) 5 mg STK-MED ONCE .ROUTE ; Start 02/03/18 at 09:55; Stop 02/03/18 at 09:56; Status DC Albuterol Sulfate (Ventolin Neb Soln) 2.5 mg 1X PACU PRN NEB SHORTNESS OF BREATH Last administered on 02/03/18at 10:53; Start 02/03/18 at 11:00; Stop at 17:39; Status DC Diphenhydramine HCl (Benadryl) 25 mg PRN Q6HRS PRN PO ITCHING; Start 02/03/18 at 11:00 Diphenhydramine HCl (Benadryl) 25 mg PRN Q6HRS PRN IV ITCHING Last administered on 02/03/18at 13:49; Start 02/03/18 at 11:00 Enoxaparin Sodium (Lovenox 40mg Syringe) 40 mg Q24H SQ ; Start 02/03/18 at 11:00 ; Status Cancel Sodium Chloride (Normal Saline Flush) 3 ml QSHIFT PRN IV AFTER MEDS AND BLOOD DRAWS; Start 02/03/18 at 11:00 Potassium Chloride/Sodium Chloride 1,000 ml @ 75 mls/hr [id number] IV Last administered on 02/03/18at 23:55; Start 02/03/18 at 10:46; Stop 02/04/18 at 11:37; Status DC Dextrose (Dextrose 50%-Water Syringe) 12.5 gm PRN Q15MIN PRN IV SEE COMMENTS; Start 02/03/18 at 11:00 Oxycodone/ Acetaminophen (Percocet 5/325) 1 tab PRN Q4HRS PRN PO MILD PAIN, 1ST CHOICE Last administered on 02/03/18at 22:41; Start 02/03/18 at 11:00 Oxycodone/ Acetaminophen (Percocet 5/325) 2 tab PRN Q4HRS PRN PO MODERATE PAIN , SEVERE PAIN; Start 02/03/18 at 11:00 Morphine Sulfate (Morphine Sulfate) 5 mg PRN Q3HRS PRN IV MODERATE TO SEVERE PAIN Last administered on 02/06/18at 08:15; Start 02/03/18 at 11:15 Docusate Sodium (Colace) 100 mg BID PO Last administered on 02/03/18at 21:07; Start 02/03/18 at 11:00 Ondansetron HCl (Zofran) 4 mg PRN Q6HRS PRN IV NAUESA, 1ST CHOICE Last administered on 02/04/18at 16:22; Start 02/03/18 at 11:00 Enoxaparin Sodium (Lovenox 40mg Syringe) 40 mg Q24H SQ ; Start 02/04/18 at 09:00 ; Stop 02/04/18 at 09:00; Status DC Hydralazine HCl (Apresoline Inj) 10 mg 1X PACU PRN IVP ELEVATED BP, SEE COMMENTS; Start 02/03/18 at 12:15; Stop 02/03/18 at 20:00; Status DC Oxycodone/ Acetaminophen (Percocet 5/325) 1 tab 1X PACU PRN PO PAIN Last administered on 02/03/18at 12:20; Start 02/03/18 at 12:15; Stop 02/03/18 at 20:00; Status DC Albuterol Sulfate (Ventolin Neb Soln) 2.5 mg PRN Q2HR PRN NEB [id number] Last administered on 02/04/18at 04:11; Start 02/03/18 at 15:00 Albuterol/ Ipratropium (Duoneb) 3 ml RTQID NEB Last administered on 02/06/18at 08 :33; Start 02/03/18 at 16:00 Ondansetron HCl (Zofran) 4 mg PRN Q6HRS PRN IV NAUSEA/VOMITING; Start 02/04/18 at 07:00; Stop 02/05/18 at 06:59; Status DC Fentanyl Citrate (Fentanyl 2ml Vial) 25 mcg PRN Q5MIN PRN IV MILD PAIN; Start 02/04/18 at 07:00; Stop 02/05/18 at 06:59; Status DC Fentanyl Citrate (Fentanyl 2ml Vial) 50 mcg PRN Q5MIN PRN IV MODERATE TO SEVERE PAIN; Start 02/04/18 at 07:00; Stop 02/05/18 at 06:59; Status DC Morphine Sulfate (Morphine Sulfate) 1 mg PRN Q10MIN PRN IV SEVERE PAIN; Start 02/04/18 at 07:00; Stop 02/05/18 at 06:59; Status DC Ringer's Solution 1,000 ml @ 30 mls/hr Q24H IV ; Start 02/04/18 at 07:00; Stop 02/04/18 at 18:59; Status DC Lidocaine HCl (Xylocaine-Mpf 1% Vial) 2 ml PRN 1X PRN ID IV START; Start at 07:00; Stop 02/05/18 at 06:59; Status DC Prochlorperazine Edisylate (Compazine) 5 mg PACU PRN PRN IV NAUSEA, MRX1; Start 02/04/18 at 07:00; Stop 02/05/18 at 06:59; Status DC Furosemide (Lasix) 40 mg 1X ONCE IVP Last administered on 02/04/18at 12:47; Start 02/04/18 at 11:45; Stop 02/04/18 at 11:46; Status DC Sodium Chloride 1,000 ml @ 100 mls/hr Q10H IV Last administered on 02/05/18at 21 :05; Start 02/04/18 at 12:00 Hydralazine HCl (Apresoline Inj) 10 mg PRN Q4HRS PRN IVP ELEVATED BP, SEE COMMENTS; Start 02/04/18 at 12:15 Iohexol (Omnipaque 300 Mg/ml) 100 ml STK-MED ONCE .ROUTE ; Start 02/04/18 at 12: 11; Stop 02/04/18 at 12:12; Status DC Cefazolin Sodium/ Dextrose (Ancef 2gm Premix) 2 gm STK-MED ONCE IV ; Start at 07:00; Stop 02/04/18 at 12:31; Status DC Propofol 0 ml @ As Directed STK-MED ONCE IV ; Start 02/04/18 at 13:50; Stop at 13:51; Status DC Lidocaine HCl (Lidocaine Pf 2% Vial) 5 ml STK-MED ONCE .ROUTE ; Start 02/04/18 at 13:50; Stop 02/04/18 at 13:51; Status DC Famotidine (Pepcid Vial) 20 mg STK-MED ONCE .ROUTE ; Start 02/04/18 at 13:50; Stop 02/04/18 at 13:51; Status DC Dexamethasone Sodium Phosphate (Decadron) 20 mg STK-MED ONCE .ROUTE ; Start 02/04 at 13:50; Stop 02/04/18 at 13:52; Status DC Ondansetron HCl (Zofran) 4 mg STK-MED ONCE .ROUTE ; Start 02/04/18 at 13:50; Stop 02/04/18 at 13:52; Status DC Lorazepam (Ativan) 0.5 mg PRN Q8HRS PRN PO ANXIETY / AGITATION; Start 02/04/18 at 15:15 Furosemide (Lasix) 40 mg 1X ONCE IVP Last administered on 02/04/18at 17:00; Start 02/04/18 at 16:45; Stop 02/04/18 at 16:46; Status DC Ciprofloxacin/ Dextrose 200 ml @ 200 mls/hr Q12HR IV Last administered on at 08:10; Start 02/04/18 at 17:30 Metronidazole 100 ml @ 100 mls/hr Q12HR IV Last administered on 02/06/18at 08:09 ; Start 02/04/18 at 17:30 Metoclopramide HCl (Reglan Vial) 5 mg PRN Q6HRS PRN IV NAUSEA/VOMITING 2nd CHOICE Last administered on 02/05/18at 13:05; Start 02/04/18 at 17:30 Lorazepam (Ativan) 0.5 mg PRN Q6HRS PRN IV ANXIETY / AGITATION Last administered on 02/04/18at 21:27; Start 02/04/18 at 20:45 Acetaminophen (Tylenol) 500 mg PRN Q4HRS PRN PO FEVER; Start 02/04/18 at 22:15 Furosemide (Lasix) 40 mg 1X ONCE IVP Last administered on 02/05/18at 01:15; Start 02/05/18 at 01:30; Stop 02/05/18 at 01:31; Status DC Ringer's Solution 1,000 ml @ 75 mls/hr [id number] IV Last administered on at 09:52; Start 02/05/18 at 10:00 Iohexol (Omnipaque 300 Mg/ml) 100 ml STK-MED ONCE .ROUTE ; Start 02/05/18 at 10: 10; Stop 02/05/18 at 10:11; Status DC Fentanyl Citrate (Fentanyl 2ml Vial) 100 mcg STK-MED ONCE .ROUTE ; Start at 10:33; Stop 02/05/18 at 10:34; Status DC Ondansetron HCl (Zofran) 4 mg STK-MED ONCE .ROUTE ; Start 02/05/18 at 11:01; Stop 02/05/18 at 11:03; Status DC Iohexol (Omnipaque 300 Mg/ml) 100 ml STK-MED ONCE IV Last administered on at 11:27; Start 02/05/18 at 11:27; Stop 02/05/18 at 11:29; Status DC Haloperidol Lactate (Haldol Inj) 5 mg PRN Q6HRS PRN IVP AGITATION Last administered on 02/06/18at 03:45; Start 02/05/18 at 12:30 Active Scripts Active Reported Ferrous Sulfate 325 Mg Tablet 1 Tab PO DAILY Super B Complex-Vitamin C (B Complex With Vitamin C) 1 Each Tablet 1 Each PO Warfarin Sodium 5 Mg Tablet 7.5 Mg PO QTUTHSA Amiodarone Hcl 200 Mg Tablet 100 Mg PO DAILY Furosemide 20 Mg Tablet 10 Mg PO QMWF Metoprolol Succinate ( Xl ) (Metoprolol Succinate) 25 Mg Tab.er.24h 1 Tab PO QPM Calcitriol 0.25 Mcg Capsule 0.25 Mcg PO QM-W-F Warfarin Sodium 5 Mg Tablet 5 Mg PO QMWF Loratadine 10 Mg Tablet 10 Mg PO QHS Tamsulosin Hcl 0.4 Mg Cap.er.24h 0.4 Mg PO QHS Atorvastatin Calcium 10 Mg Tablet 10 Mg PO HS Duoneb 0.5-3(2.5) Mg/3 Ml (Albuterol/Ipratropium) 3 Ml Ampul.neb 3 Ml IH TID PRN Flonase (Fluticasone Propionate) 16 Gm [place].susp 2 [place] NS BID Vitals/I & O Vital Sign - Last 24 Hours 02/05/18 02/05/18 02/05/18 02/05/18 11:40 11:50 12:00 12:00 Temp 99.1 99.1 99.1 99.1 99.1 99.1 Pulse 86 86 94 Resp 20 20 20 B/P (MAP) 180/80 181/106 164/124 Pulse Ox 94 94 89 O2 Delivery NonRebreather Mask BiPAP/CPAP BiPAP/CPAP O2 Flow Rate 2.0 2.0 2.0 02/05/18 02/05/18 02/05/18 02/05/18 12:00 12:10 12:15 12:27 Temp 99.1 99.1 99.1 99.1 Pulse 89 87 Resp 16 20 B/P (MAP) 171/80 171/80 Pulse Ox 89 90 89 O2 Delivery Bi-pap BiPAP/CPAP BiPAP/CPAP BiPAP/CPAP O2 Flow Rate 2.0 2.0 2.0 02/05/18 02/05/18 02/05/18 02/05/18 12:45 13:00 13:15 13:30 Pulse 86 82 82 110 Resp 24 16 18 21 B/P (MAP) 157/69 (98) 169/77 (107) 155/70 (98) 161/79 (106) Pulse Ox 93 95 93 91 O2 Delivery BiPAP/CPAP BiPAP/CPAP BiPAP/CPAP BiPAP/CPAP O2 Flow Rate 2.0 2.0 2.0 2.0 02/05/18 02/05/18 02/05/18 02/05/18 13:45 14:00 14:46 15:00 Pulse 110 79 79 Resp 20 18 18 B/P (MAP) 157/81 (106) 137/73 (94) 147/80 (102) Pulse Ox 92 92 94 94 O2 Delivery BiPAP/CPAP BiPAP/CPAP BiPAP/CPAP BiPAP/CPAP O2 Flow Rate 2.0 2.0 2.0 02/05/18 02/05/18 02/05/18 02/05/18 16:00 16:00 16:00 17:00 Temp 99.8 99.8 Pulse 77 80 Resp 18 17 B/P (MAP) 148/72 (97) 145/67 (93) Pulse Ox 94 92 O2 Delivery Bi-pap BiPAP/CPAP Simple Mask O2 Flow Rate 2.0 2.0 2.0 4.0 02/05/18 02/05/18 02/05/18 02/05/18 18:00 19:00 19:31 20:00 Pulse 86 82 Resp 17 19 B/P (MAP) 134/56 (82) 144/61 (88) Pulse Ox 92 89 92 O2 Delivery Venturi Mask Venturi Mask Venturi Mask Venturi Mask O2 Flow Rate 12.0 02/05/18 02/05/18 02/05/18 02/05/18 20:00 20:00 21:00 22:00 Temp 99.3 99.3 Pulse 78 83 74 Resp 18 19 19 B/P (MAP) 100/61 (74) 142/72 (95) 146/65 (92) Pulse Ox 92 92 92 O2 Delivery Venturi Mask Venturi Mask Venturi Mask O2 Flow Rate 4.0 02/05/18 02/06/18 02/06/18 02/06/18 23:00 00:00 00:00 00:00 Temp 98.9 98.9 Pulse 75 76 Resp 19 19 B/P (MAP) 122/52 (75) 134/60 (84) Pulse Ox 94 94 O2 Delivery Venturi Mask Venturi Mask Venturi Mask O2 Flow Rate 12.0 4.0 02/06/18 02/06/18 02/06/18 02/06/18 01:00 02:00 03:00 04:00 Pulse 82 81 92 Resp 20 18 22 B/P (MAP) 131/58 (82) 130/62 (84) 153/69 (97) Pulse Ox 94 96 95 O2 Delivery Venturi Mask Venturi Mask Venturi Mask Venturi Mask O2 Flow Rate 12.0 02/06/18 02/06/18 02/06/18 02/06/18 04:00 04:00 05:00 06:00 Temp 98.2 98.2 Pulse 92 75 84 Resp 22 21 21 B/P (MAP) 153/69 (97) 142/70 (94) 165/75 (105) Pulse Ox 95 97 97 O2 Delivery Venturi Mask Venturi Mask Venturi Mask O2 Flow Rate 12.0 02/06/18 02/06/18 08:15 08:37 Pulse Ox 97 96 O2 Delivery Venturi Mask Venturi Mask O2 Flow Rate 12.0 Intake and Output 02/05/18 02/05/18 02/06/18 15:00 23:00 07:00 Intake Total 900 ml 991 ml 968 ml Output Total 501 ml 570 ml 550 ml Balance 399 ml 421 ml 418 ml Assessment Choledocholithiasis, resolved after ERCP. Plan of Care: Continue current Tx, Mgmt Plan of Care Note OK with me to try diet, out of ICU. Continue other. SUSSY GRIJALVA MD Feb 06, 2018 10:24
--- NOTE | 2018-02-06 11:14 | PDOC ---
PULMONARY PROGRESS NOTES Subjective PT REFUSES BIPAP AT TIMES NOW ON 4 LITERS NOT MORE SOA Vitals Vital Signs Date Time Temp Pulse Resp B/P (MAP) Pulse Ox O2 Delivery O2 Flow Rate FiO2 02/06/18 08:37 96 Venturi Mask 02/06/18 08:15 12.0 02/06/18 06:00 84 21 165/75 (105) 02/06/18 04:00 98.2 98.2 General: Alert Lungs: Clear, Crackles Cardiovascular: S1, S2 Abdomen: Soft, Non-tender, Other (DISTENDED) Neuro Exam: Alert Extremities: No Edema Skin: Warm Labs Laboratory Tests Test 02/04/18 12:50 02/04/18 15:00 02/04/18 15:15 02/04/18 15:51 Sodium Level 136 mmol/L (136-145) Potassium Level 6.0 mmol/L (3.5-5.1) 6.0 mmol/L (3.5-5.1) Chloride Level 104 mmol/L (98-107) Carbon Dioxide Level 27 mmol/L (21-32) Anion Gap 5 (6-14) Blood Urea Nitrogen 57 mg/dL (8-26) Creatinine 2.3 mg/dL (0.7-1.3) Estimated GFR (Cockcroft-Gault) 27.8 Glucose Level 125 mg/dL (70-99) Calcium Level 11.0 mg/dL (8.5-10.1) Lactic Acid Level 3.1 mmol/L (0.4-2.0) White Blood Count 24.9 x10^3/uL (4.0-11.0) Red Blood Count 3.64 x10^6/uL (4.30-5.70) Hemoglobin 11.5 g/dL (13.0-17.5) Hematocrit 35.5 % (39.0-53.0) Mean Corpuscular Volume 98 fL (79-100) Mean Corpuscular Hemoglobin 32 pg (25-35) Mean Corpuscular Hemoglobin Concent 32 g/dL (31-37) Red Cell Distribution Width 14.8 % (11.5-14.5) Platelet Count 184 x10^3/uL (140-400) O2 Saturation 92 % (92-99) Arterial Blood pH 7.31 (7.35-7.45) Arterial Blood pCO2 at Patient Temp 47 mmHg (35-46) Arterial Blood pO2 at Patient Temp 66 mmHg (65-108) Arterial Blood HCO3 23 mmol/L (21-28) Arterial Blood Base Excess -4 mmol/L (-3-3) FiO2 45 Test 02/04/18 21:20 02/05/18 04:00 02/05/18 07:55 02/05/18 15:00 White Blood Count 25.5 x10^3/uL (4.0-11.0) 24.7 x10^3/uL (4.0-11.0) Red Blood Count 3.48 x10^6/uL (4.30-5.70) 3.25 x10^6/uL (4.30-5.70) Hemoglobin 10.9 g/dL (13.0-17.5) 10.3 g/dL (13.0-17.5) Hematocrit 33.6 % (39.0-53.0) 31.4 % (39.0-53.0) Mean Corpuscular Volume 97 fL (79-100) 97 fL (79-100) Mean Corpuscular Hemoglobin 31 pg (25-35) 32 pg (25-35) Mean Corpuscular Hemoglobin Concent 33 g/dL (31-37) 33 g/dL (31-37) Red Cell Distribution Width 15.1 % (11.5-14.5) 14.8 % (11.5-14.5) Platelet Count 155 x10^3/uL (140-400) 134 x10^3/uL (140-400) Neutrophils (%) (Auto) 89 % (31-73) 91 % (31-73) Lymphocytes (%) (Auto) 2 % (24-48) 2 % (24-48) Monocytes (%) (Auto) 8 % (0-9) 7 % (0-9) Eosinophils (%) (Auto) 0 % (0-3) 0 % (0-3) Basophils (%) (Auto) 0 % (0-3) 0 % (0-3) Neutrophils # (Auto) 22.7 x10^3uL (1.8-7.7) 22.4 x10^3uL (1.8-7.7) Lymphocytes # (Auto) 0.5 x10^3/uL (1.0-4.8) 0.5 x10^3/uL (1.0-4.8) Monocytes # (Auto) 2.1 x10^3/uL (0.0-1.1) 1.7 x10^3/uL (0.0-1.1) Eosinophils # (Auto) 0.0 x10^3/uL (0.0-0.7) 0.0 x10^3/uL (0.0-0.7) Basophils # (Auto) 0.1 x10^3/uL (0.0-0.2) 0.1 x10^3/uL (0.0-0.2) Segmented Neutrophils % 90 % (35-66) Band Neutrophils % 2 % (0-9) Lymphocytes % 3 % (24-48) Monocytes % 5 % (0-10) Platelet Estimate Adequate (ADEQUATE) Sodium Level 134 mmol/L (136-145) 135 mmol/L (136-145) Potassium Level 5.9 mmol/L (3.5-5.1) 5.7 mmol/L (3.5-5.1) Chloride Level 103 mmol/L (98-107) 103 mmol/L (98-107) Carbon Dioxide Level 26 mmol/L (21-32) 24 mmol/L (21-32) Anion Gap 5 (6-14) 8 (6-14) Blood Urea Nitrogen 64 mg/dL (8-26) 72 mg/dL (8-26) Creatinine 3.4 mg/dL (0.7-1.3) 3.6 mg/dL (0.7-1.3) Estimated GFR (Cockcroft-Gault) 17.7 16.6 Glucose Level 117 mg/dL (70-99) 109 mg/dL (70-99) Lactic Acid Level 1.5 mmol/L (0.4-2.0) Calcium Level 10.3 mg/dL (8.5-10.1) 10.4 mg/dL (8.5-10.1) BUN/Creatinine Ratio 20 (6-20) Total Bilirubin 3.4 mg/dL (0.2-1.0) Aspartate Amino Transf (AST/SGOT) 18 U/L (15-37) Alanine Aminotransferase (ALT/SGPT) 14 U/L (16-63) Alkaline Phosphatase 68 U/L (46-116) Total Protein 6.5 g/dL (6.4-8.2) Albumin 2.8 g/dL (3.4-5.0) Albumin/Globulin Ratio 0.8 (1.0-1.7) Amylase Level 33 U/L (25-115) Lipase 70 U/L (73-393) O2 Saturation 94 % (92-99) 89 % (92-99) Arterial Blood pH 7.29 (7.35-7.45) 7.30 (7.35-7.45) Arterial Blood pCO2 at Patient Temp 51 mmHg (35-46) 46 mmHg (35-46) Arterial Blood pO2 at Patient Temp 74 mmHg (65-108) 57 mmHg (65-108) Arterial Blood HCO3 24 mmol/L (21-28) 22 mmol/L (21-28) Arterial Blood Base Excess -3 mmol/L (-3-3) -5 mmol/L (-3-3) FiO2 98 35 Test 02/06/18 03:00 White Blood Count 18.3 x10^3/uL (4.0-11.0) Red Blood Count 2.91 x10^6/uL (4.30-5.70) Hemoglobin 9.2 g/dL (13.0-17.5) Hematocrit 28.1 % (39.0-53.0) Mean Corpuscular Volume 96 fL (79-100) Mean Corpuscular Hemoglobin 32 pg (25-35) Mean Corpuscular Hemoglobin Concent 33 g/dL (31-37) Red Cell Distribution Width 14.8 % (11.5-14.5) Platelet Count 109 x10^3/uL (140-400) Neutrophils (%) (Auto) 91 % (31-73) Lymphocytes (%) (Auto) 2 % (24-48) Monocytes (%) (Auto) 6 % (0-9) Eosinophils (%) (Auto) 0 % (0-3) Basophils (%) (Auto) 0 % (0-3) Neutrophils # (Auto) 16.7 x10^3uL (1.8-7.7) Lymphocytes # (Auto) 0.4 x10^3/uL (1.0-4.8) Monocytes # (Auto) 1.2 x10^3/uL (0.0-1.1) Eosinophils # (Auto) 0.0 x10^3/uL (0.0-0.7) Basophils # (Auto) 0.0 x10^3/uL (0.0-0.2) Sodium Level 139 mmol/L (136-145) Potassium Level 5.1 mmol/L (3.5-5.1) Chloride Level 105 mmol/L (98-107) Carbon Dioxide Level 25 mmol/L (21-32) Anion Gap 9 (6-14) Blood Urea Nitrogen 75 mg/dL (8-26) Creatinine 3.2 mg/dL (0.7-1.3) Estimated GFR (Cockcroft-Gault) 19.0 BUN/Creatinine Ratio 23 (6-20) Glucose Level 83 mg/dL (70-99) Calcium Level 10.7 mg/dL (8.5-10.1) Total Bilirubin 3.3 mg/dL (0.2-1.0) Aspartate Amino Transf (AST/SGOT) 21 U/L (15-37) Alanine Aminotransferase (ALT/SGPT) 17 U/L (16-63) Alkaline Phosphatase 59 U/L (46-116) Total Protein 6.1 g/dL (6.4-8.2) Albumin 2.4 g/dL (3.4-5.0) Albumin/Globulin Ratio 0.6 (1.0-1.7) Amylase Level 40 U/L (25-115) Lipase 57 U/L (73-393) Laboratory Tests Test 02/05/18 15:00 02/06/18 03:00 O2 Saturation 89 % (92-99) Arterial Blood pH 7.30 (7.35-7.45) Arterial Blood pCO2 at Patient Temp 46 mmHg (35-46) Arterial Blood pO2 at Patient Temp 57 mmHg (65-108) Arterial Blood HCO3 22 mmol/L (21-28) Arterial Blood Base Excess -5 mmol/L (-3-3) FiO2 35 White Blood Count 18.3 x10^3/uL (4.0-11.0) Red Blood Count 2.91 x10^6/uL (4.30-5.70) Hemoglobin 9.2 g/dL (13.0-17.5) Hematocrit 28.1 % (39.0-53.0) Mean Corpuscular Volume 96 fL (79-100) Mean Corpuscular Hemoglobin 32 pg (25-35) Mean Corpuscular Hemoglobin Concent 33 g/dL (31-37) Red Cell Distribution Width 14.8 % (11.5-14.5) Platelet Count 109 x10^3/uL (140-400) Neutrophils (%) (Auto) 91 % (31-73) Lymphocytes (%) (Auto) 2 % (24-48) Monocytes (%) (Auto) 6 % (0-9) Eosinophils (%) (Auto) 0 % (0-3) Basophils (%) (Auto) 0 % (0-3) Neutrophils # (Auto) 16.7 x10^3uL (1.8-7.7) Lymphocytes # (Auto) 0.4 x10^3/uL (1.0-4.8) Monocytes # (Auto) 1.2 x10^3/uL (0.0-1.1) Eosinophils # (Auto) 0.0 x10^3/uL (0.0-0.7) Basophils # (Auto) 0.0 x10^3/uL (0.0-0.2) Sodium Level 139 mmol/L (136-145) Potassium Level 5.1 mmol/L (3.5-5.1) Chloride Level 105 mmol/L (98-107) Carbon Dioxide Level 25 mmol/L (21-32) Anion Gap 9 (6-14) Blood Urea Nitrogen 75 mg/dL (8-26) Creatinine 3.2 mg/dL (0.7-1.3) Estimated GFR (Cockcroft-Gault) 19.0 BUN/Creatinine Ratio 23 (6-20) Glucose Level 83 mg/dL (70-99) Calcium Level 10.7 mg/dL (8.5-10.1) Total Bilirubin 3.3 mg/dL (0.2-1.0) Aspartate Amino Transf (AST/SGOT) 21 U/L (15-37) Alanine Aminotransferase (ALT/SGPT) 17 U/L (16-63) Alkaline Phosphatase 59 U/L (46-116) Total Protein 6.1 g/dL (6.4-8.2) Albumin 2.4 g/dL (3.4-5.0) Albumin/Globulin Ratio 0.6 (1.0-1.7) Amylase Level 40 U/L (25-115) Lipase 57 U/L (73-393) Medications Active Scripts Medications Dose Route/Sig Max Daily Dose Days Date Category Ferrous Sulfate 325 Mg Tablet 1 Tab PO DAILY 01/28/18 Reported Super B Complex-Vitamin C (B Complex With Vitamin C) 1 Each Tablet 1 Each PO 12/04/17 Reported Warfarin Sodium 5 Mg Tablet 7.5 Mg PO QTUTHSA 06/10/17 Reported Amiodarone Hcl 200 Mg Tablet 100 Mg PO DAILY 06/10/17 Reported Furosemide 20 Mg Tablet 10 Mg PO QMWF 06/10/17 Reported Metoprolol Succinate ( Xl ) (Metoprolol Succinate) 25 Mg Tab.er.24h 1 Tab PO QPM 11/13/16 Reported Calcitriol 0.25 Mcg Capsule 0.25 Mcg PO QM-W-F 05/24/16 Reported Warfarin Sodium 5 Mg Tablet 5 Mg PO QMWF 05/24/16 Reported Loratadine 10 Mg Tablet 10 Mg PO QHS 10/16/14 Reported Tamsulosin Hcl 0.4 Mg Cap.er.24h 0.4 Mg PO QHS 10/16/14 Reported Atorvastatin Calcium 10 Mg Tablet 10 Mg PO HS 10/16/14 Reported Duoneb 0.5-3(2.5) Mg/3 Ml (Albuterol/Ipratropium) 3 Ml Ampul.neb 3 Ml IH TID PRN 07/24/14 Reported Flonase (Fluticasone Propionate) 16 Gm Baker.susp 2 Baker NS BID 01/06/14 Reported Comments IMPRESSION: 1. Minimal bibasilar lung atelectasis or infiltrates. Impression . IMPRESSION: 1. Acute/Chronic resp expected status post laparoscopic cholecystectomy. 03/06 2. Chronic obstructive pulmonary disease of the chronic bronchitic type. 3. Chronic atrial fibrillation. 4. Obstructive sleep apnea. 5. Common Bile duct stone S/P ERCP 02/05 02/05 ERCP with sphincterotomy/stone extraction Meds JEM/PRIYANKA Pre-op dx jaundice/abnl IOC/choledocholithiasis Post-op dx choledocholithiasis s/p sphincterotomy/stone extraction large khalida-ampullary diverticulum Plan serial labs monitor for complications possibly advance diet in am if no adverse events Plan . ABG ON 4 LITERS CONTINUE POST OP CARE HALDOL D/W WITH RN AND DEENA SHIPLEY MD Feb 06, 2018 11:14
[2018-02-06 11:26] LABS: BASE EXCESS ABG -2 mmol/L (-3-3); HCO3 ABG 24 mmol/L (21-28); PCO2 ABG 49 mmHg (35-46); PO2 ABG 51 mmHg (65-108); SAT O2 ABG 84 % (92-99)
[2018-02-06] MEDS ORDERED: PHENYLEPHRINE in 0.9% NACL PF 1 MG/10 ML SYRINGE. IV ONE (12:00)
[2018-02-06] MEDS ORDERED: NEOSTIGMINE METHYLSULFATE 5 MG/5 ML SYRINGE. ONE (12:00)
[2018-02-06] MEDS ORDERED: PROPOFOL 10 MG/ML (20ML) VIAL. IV ONE (12:00)
[2018-02-06] MEDS ORDERED: GLYCOPYRROLATE 1 MG/5 ML VIAL. ONE (12:00)
[2018-02-06] MEDS ORDERED: LIDOCAINE 2% 100 MG/5 ML SYRINGE. ONE (12:00)
[2018-02-06] MEDS ORDERED: DEXAMETHASONE SOD PHOS 20 MG/5 ML VIAL. ONE (12:00)
--- NOTE | 2018-02-06 13:12 | PDOC ---
SUBJECTIVE ROS JAYDON + CKD III/ IV Doing a little better today CVS: no Orthopnea, no CP RESP: no SOB, no BARROS GI: no Nausea, no Vomiting : no Dysuria, no Urgency - cedeño in palce OBJECTIVE Vital Signs Vital Signs Date Time Temp Pulse Resp B/P (MAP) Pulse Ox O2 Delivery O2 Flow Rate FiO2 02/06/18 11:19 95 Nasal Cannula 2.0 02/06/18 06:00 84 21 165/75 (105) 02/06/18 04:00 98.2 98.2 I & 0 Intake and Output 02/06/18 07:00 Intake Total 2859 ml Output Total 1621 ml Balance 1238 ml Intake Oral 0 ml IV Total 2859 ml Output Urine Total 1621 ml PHYSICAL EXAM Physical Exam GEN: Awake, Oriented x 2, In no visible distress; FM in place EYES: Vision Unchanged, Conjunctiva Normal EN: No EN Drainage, Mucous Membranes dryish NECK: no JVD, min JVP, Supple, no Thyromegaly CVS: S1S2, no Murmur, No Gallop, No Rub,no Edema RESP: no Rales, ? occ coarse Rhonchi,no Acc. Muscle Use GI: BS + ve, NO Bruit, Non Tender, Non Distended : no CVA tenderness, no Suprapubic Tenderness DIAGNOSIS/ASSESSMENT Assessment & Plan ARF/ ? ATN (doubt pidment nephropahty) : Current fluid and E-lyte status does not necessitate emergent need for dialysis. 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 HTN: Current BP meds as reviewed. See orders for changes. Discussed Plan of Care with family () at bedside COMMENT/RELEVANT DATA Meds Current Medications Medications (Trade) Dose Ordered Sig/Patricia Start Time Stop Time Status Last Admin Dose Admin Acetaminophen (Tylenol) 500 mg PRN Q4HRS PRN 02/04/18 22:15 Albuterol Sulfate (Ventolin Neb Soln) 2.5 mg PRN Q2HR PRN 02/03/18 15:00 02/04/18 04:11 2.5 MG Albuterol/ Ipratropium (Duoneb) 3 ml RTQID 02/03/18 16:00 02/06/18 11:18 3 ML Bupivacaine HCl/ Epinephrine Bitart (Marcaine-Epi 0.5%-1:[id number]) 50 ml STK-MED ONCE 02/03/18 07:56 02/03/18 08:57 DC 02/03/18 09:49 8 ML Cefazolin Sodium/ Dextrose (Ancef 2gm Premix) 2 gm STK-MED ONCE 02/03/18 07:00 02/04/18 12:31 DC Ciprofloxacin/ Dextrose 200 ml @ 200 mls/hr Q12HR 02/04/18 17:30 02/06/18 08:10 200 MLS/HR Desflurane (Suprane) 60 ml STK-MED ONCE 02/03/18 08:09 02/03/18 08:10 DC Dexamethasone Sodium Phosphate (Decadron) 20 mg STK-MED ONCE 02/04/18 13:50 02/04/18 13:52 DC Dextrose (Dextrose 50%-Water Syringe) 12.5 gm PRN Q15MIN PRN 02/03/18 11:00 Diphenhydramine HCl (Benadryl) 25 mg PRN Q6HRS PRN 02/03/18 11:00 02/03/18 13:49 25 MG Docusate Sodium (Colace) 100 mg BID 02/03/18 11:00 02/03/18 21:07 100 MG Enoxaparin Sodium (Lovenox 40mg Syringe) 40 mg Q24H 02/04/18 09:00 02/04/18 09:00 DC Ephedrine Sulfate (ePHEDrine PF IN SALINE SYRINGE) 50 mg STK-MED ONCE 02/03/18 08:15 02/03/18 08:16 DC Famotidine (Pepcid Vial) 20 mg STK-MED ONCE 02/04/18 13:50 02/04/18 13:51 DC Fentanyl Citrate (Fentanyl 2ml Vial) 100 mcg STK-MED ONCE 02/05/18 10:33 02/05/18 10:34 DC Furosemide (Lasix) 40 mg 1X ONCE 02/05/18 01:30 02/05/18 01:31 DC 02/05/18 01:15 40 MG Glycopyrrolate (Robinul) 1 mg STK-MED ONCE 02/03/18 09:55 02/03/18 09:56 DC Haloperidol Lactate (Haldol Inj) 5 mg PRN Q6HRS PRN 02/05/18 12:30 02/06/18 03:45 5 MG Hydralazine HCl (Apresoline Inj) 10 mg PRN Q4HRS PRN 02/04/18 12:15 Iohexol (Omnipaque 300 Mg/ml) 100 ml STK-MED ONCE 02/05/18 11:27 02/05/18 11:29 DC 02/05/18 11:27 30 ML Ketorolac Tromethamine (Toradol For Or Only) 30 mg STK-MED ONCE 02/03/18 08:09 02/03/18 08:10 DC Lidocaine HCl (Lidocaine Pf 2% Vial) 5 ml STK-MED ONCE 02/04/18 13:50 02/04/18 13:51 DC Lidocaine HCl (Xylocaine-Mpf 1% Vial) 2 ml PRN 1X PRN 02/04/18 07:00 02/05/18 06:59 DC Lorazepam (Ativan) 0.5 mg PRN Q6HRS PRN 02/04/18 20:45 02/04/18 21:27 0.5 MG Metoclopramide HCl (Reglan Vial) 5 mg PRN Q6HRS PRN 02/04/18 17:30 02/05/18 13:05 5 MG Metronidazole 100 ml @ 100 mls/hr Q12HR 02/04/18 17:30 02/06/18 08:09 100 MLS/HR Morphine Sulfate (Morphine Sulfate) 1 mg PRN Q10MIN PRN 02/04/18 07:00 02/05/18 06:59 DC Neostigmine Methylsulfate (Neostigmine Methylsulfate) 5 mg STK-MED ONCE 02/03/18 09:55 02/03/18 09:56 DC Ondansetron HCl (Zofran) 4 mg STK-MED ONCE 02/05/18 11:01 02/05/18 11:03 DC Oxycodone/ Acetaminophen (Percocet 5/325) 1 tab 1X PACU PRN 02/03/18 12:15 02/03/18 20:00 DC 02/03/18 12:20 1 TAB Phenylephrine HCl (PHENYLEPHRINE in 0.9% NACL PF) 1 mg STK-MED ONCE 02/03/18 09:24 02/03/18 09:25 DC Potassium Chloride/Sodium Chloride 1,000 ml @ 75 mls/hr [id number] 02/03/18 10:46 02/04/18 11:37 DC 02/03/18 23:55 75 MLS/HR Prochlorperazine Edisylate (Compazine) 5 mg PACU PRN PRN 02/04/18 07:00 02/05/18 06:59 DC Propofol 0 ml @ As Directed STK-MED ONCE 02/04/18 13:50 02/04/18 13:51 DC Ringer's Solution 1,000 ml @ 75 mls/hr [id number] 02/05/18 10:00 02/05/18 09:52 75 MLS/HR Rocuronium [place] (Zemuron) 50 mg STK-MED ONCE 02/03/18 08:09 02/03/18 08:10 DC Sodium Chloride 1,000 ml @ 100 mls/hr Q10H 02/04/18 12:00 02/05/18 21:05 100 MLS/HR Sodium Chloride (Normal Saline Flush) 3 ml QSHIFT PRN 02/03/18 11:00 Lab Laboratory Tests Test 02/05/18 15:00 02/06/18 03:00 02/06/18 11:10 O2 Saturation 89 % (92-99) 84 % (92-99) Arterial Blood pH 7.30 (7.35-7.45) 7.31 (7.35-7.45) Arterial Blood pCO2 at Patient Temp 46 mmHg (35-46) 49 mmHg (35-46) Arterial Blood pO2 at Patient Temp 57 mmHg (65-108) 51 mmHg (65-108) Arterial Blood HCO3 22 mmol/L (21-28) 24 mmol/L (21-28) Arterial Blood Base Excess -5 mmol/L (-3-3) -2 mmol/L (-3-3) FiO2 35 2 lpm nc White Blood Count 18.3 x10^3/uL (4.0-11.0) Red Blood Count 2.91 x10^6/uL (4.30-5.70) Hemoglobin 9.2 g/dL (13.0-17.5) Hematocrit 28.1 % (39.0-53.0) Mean Corpuscular Volume 96 fL (79-100) Mean Corpuscular Hemoglobin 32 pg (25-35) Mean Corpuscular Hemoglobin Concent 33 g/dL (31-37) Red Cell Distribution Width 14.8 % (11.5-14.5) Platelet Count 109 x10^3/uL (140-400) Neutrophils (%) (Auto) 91 % (31-73) Lymphocytes (%) (Auto) 2 % (24-48) Monocytes (%) (Auto) 6 % (0-9) Eosinophils (%) (Auto) 0 % (0-3) Basophils (%) (Auto) 0 % (0-3) Neutrophils # (Auto) 16.7 x10^3uL (1.8-7.7) Lymphocytes # (Auto) 0.4 x10^3/uL (1.0-4.8) Monocytes # (Auto) 1.2 x10^3/uL (0.0-1.1) Eosinophils # (Auto) 0.0 x10^3/uL (0.0-0.7) Basophils # (Auto) 0.0 x10^3/uL (0.0-0.2) Sodium Level 139 mmol/L (136-145) Potassium Level 5.1 mmol/L (3.5-5.1) Chloride Level 105 mmol/L (98-107) Carbon Dioxide Level 25 mmol/L (21-32) Anion Gap 9 (6-14) Blood Urea Nitrogen 75 mg/dL (8-26) Creatinine 3.2 mg/dL (0.7-1.3) Estimated GFR (Cockcroft-Gault) 19.0 BUN/Creatinine Ratio 23 (6-20) Glucose Level 83 mg/dL (70-99) Calcium Level 10.7 mg/dL (8.5-10.1) Total Bilirubin 3.3 mg/dL (0.2-1.0) Aspartate Amino Transf (AST/SGOT) 21 U/L (15-37) Alanine Aminotransferase (ALT/SGPT) 17 U/L (16-63) Alkaline Phosphatase 59 U/L (46-116) Total Protein 6.1 g/dL (6.4-8.2) Albumin 2.4 g/dL (3.4-5.0) Albumin/Globulin Ratio 0.6 (1.0-1.7) Amylase Level 40 U/L (25-115) Lipase 57 U/L (73-393) Results All relevant outside records, renal labs, imaging studies, telemetry/EKG's were reviewed. Other COMPARISON: 02/04/2018 FINDINGS: A frontal view of the chest obtained. There has been no significant change in diffuse interstitial prominence. There is stable bilateral lower lobe atelectasis or infiltrate. There is no pneumothorax or pleural effusion. There is a stable prominent cardiac silhouette. There is a cardiac pacemaker with leads unchanged in position. IMPRESSION: 1. Stable suspected bilateral lower lobe atelectasis or infiltrate. 2. Stable enlargement of the cardiac silhouette. JOSEFINA WHITNEY MD Feb 06, 2018 13:12
[2018-02-07] VITALS (24 sets, daily range): BP systolic 125–194; BP diastolic 58–86
[2018-02-07] MEDS: MORPHINE SULFATE 10 MG/ML VIAL. IV PRN ×5 (01:37→20:02)
[2018-02-07 02:40] LABS: BASE EXCESS ABG -6 mmol/L (-3-3); HCO3 ABG 21 mmol/L (21-28); PCO2 ABG 49 mmHg (35-46); PO2 ABG 66 mmHg (65-108); SAT O2 ABG 90 % (92-99)
[2018-02-07 02:43] LABS: FIO2 ABG 50
[2018-02-07] MEDS: hydrALAZINE 20 MG/ML VIAL. IVP PRN (03:10)
[2018-02-07] MEDS: diphenhydrAMINE 50 MG/ML VIAL IV PRN ×3 (03:16→14:34)
[2018-02-07] MEDS: HALOPERIDOL LACTATE 5 MG/ML VIAL. IVP PRN ×2 (06:05→14:34)
[2018-02-07] MEDS: IPRATRPIUM/ALBUTEROL 0.5/2.5MG 3 ML NEBU. NEB SCH ×4 (08:00→20:03)
[2018-02-07] MEDS: CIPROFLOXACIN 400MG PREMIX 200 ML IV SCH ×2 (08:47→09:44)
--- NOTE | 2018-02-07 08:50 | PDOC ---
SUBJECTIVE ROS f/up for JAYDON + CKD III/ IV Pt on BiPAP and does not respond to Qs. tells me that he was very disoriented yest too: off and on OBJECTIVE Vital Signs Vital Signs Date Time Temp Pulse Resp B/P (MAP) Pulse Ox O2 Delivery O2 Flow Rate FiO2 02/07/18 06:00 81 16 152/82 (105) 95 BiPAP/CPAP 02/07/18 04:00 12.0 02/07/18 00:00 99.1 99.1 I & 0 Intake and Output 02/07/18 07:00 Intake Total 50 ml Output Total 1400 ml Balance -1350 ml Intake Oral 50 ml Output Urine Total 1400 ml PHYSICAL EXAM Physical Exam GEN: not awake, Oriented 0, partially sedated, In no visible distress; BiPAP in place EYES: Sclera anicteric, Conjunctiva Normal EN: No EN Drainage, Mucous Membranes dryish NECK: no JVD, min JVP, Supple, no Thyromegaly CVS: S1S2, no Murmur, No Gallop, No Rub,no Edema RESP: no Rales, ? occ coarse Rhonchi,no Acc. Muscle Use GI: BS + ve, NO Bruit, Non Tender, Non Distended : no CVA tenderness, no Suprapubic Tenderness DIAGNOSIS/ASSESSMENT Assessment & Plan ARF/ ? ATN (doubt pidment nephropahty) : Current fluid and E-lyte status does not necessitate emergent need for dialysis. Will re-evaluate for dialysis in the am - no labs today. Not sure if AMS is Uremic vs opioid related. 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 check CXR as ordered. ABG s noted AMS - mutlifactorial - Not sure if AMS is Uremic vs opioid related. If not better in am- can consider HD HTN: Current BP meds as reviewed. See orders for changes. ? Start TPN vs hold due to ^ed Bili HypoALbuminemia - await reccs for Nutrition Discussed Plan of Care with family () at length at bedside. Prognosis also reviewed COMMENT/RELEVANT DATA Meds Current Medications Medications (Trade) Dose Ordered Sig/Patricia Start Time Stop Time Status Last Admin Dose Admin Acetaminophen (Tylenol) 500 mg PRN Q4HRS PRN 02/04/18 22:15 Albuterol Sulfate (Ventolin Neb Soln) 2.5 mg PRN Q2HR PRN 02/03/18 15:00 02/04/18 04:11 2.5 MG Albuterol/ Ipratropium (Duoneb) 3 ml RTQID 02/03/18 16:00 02/06/18 19:32 3 ML Bupivacaine HCl/ Epinephrine Bitart (Marcaine-Epi 0.5%-1:[id number]) 50 ml STK-MED ONCE 02/03/18 07:56 02/03/18 08:57 DC 02/03/18 09:49 8 ML Cefazolin Sodium/ Dextrose (Ancef 2gm Premix) 2 gm STK-MED ONCE 02/03/18 07:00 02/04/18 12:31 DC Ciprofloxacin/ Dextrose 200 ml @ 200 mls/hr Q24H 02/07/18 08:00 Desflurane (Suprane) 60 ml STK-MED ONCE 02/03/18 08:09 02/03/18 08:10 DC Dexamethasone Sodium Phosphate (Decadron) 20 mg STK-MED ONCE 02/04/18 13:50 02/04/18 13:52 DC Dextrose (Dextrose 50%-Water Syringe) 12.5 gm PRN Q15MIN PRN 02/03/18 11:00 Diphenhydramine HCl (Benadryl) 25 mg PRN Q6HRS PRN 02/03/18 11:00 02/07/18 03:16 25 MG Docusate Sodium (Colace) 100 mg BID 02/03/18 11:00 02/03/18 21:07 100 MG Enoxaparin Sodium (Lovenox 40mg Syringe) 40 mg Q24H 02/04/18 09:00 02/04/18 09:00 DC Ephedrine Sulfate (ePHEDrine PF IN SALINE SYRINGE) 50 mg STK-MED ONCE 02/03/18 08:15 02/03/18 08:16 DC Famotidine (Pepcid Vial) 20 mg STK-MED ONCE 02/04/18 13:50 02/04/18 13:51 DC Fentanyl Citrate (Fentanyl 2ml Vial) 100 mcg STK-MED ONCE 02/05/18 10:33 02/05/18 10:34 DC Furosemide (Lasix) 40 mg 1X ONCE 02/05/18 01:30 02/05/18 01:31 DC 02/05/18 01:15 40 MG Glycopyrrolate (Robinul) 1 mg STK-MED ONCE 02/03/18 09:55 02/03/18 09:56 DC Haloperidol Lactate (Haldol Inj) 5 mg PRN Q6HRS PRN 02/05/18 12:30 02/07/18 06:05 5 MG Hydralazine HCl (Apresoline Inj) 10 mg PRN Q4HRS PRN 02/04/18 12:15 02/07/18 03:10 10 MG Iohexol (Omnipaque 300 Mg/ml) 100 ml STK-MED ONCE 02/05/18 11:27 02/05/18 11:29 DC 02/05/18 11:27 30 ML Ketorolac Tromethamine (Toradol For Or Only) 30 mg STK-MED ONCE 02/03/18 08:09 02/03/18 08:10 DC Lidocaine HCl (Lidocaine Pf 2% Vial) 5 ml STK-MED ONCE 02/04/18 13:50 02/04/18 13:51 DC Lidocaine HCl (Xylocaine-Mpf 1% Vial) 2 ml PRN 1X PRN 02/04/18 07:00 02/05/18 06:59 DC Lorazepam (Ativan) 0.5 mg PRN Q6HRS PRN 02/04/18 20:45 02/07/18 06:05 0.5 MG Metoclopramide HCl (Reglan Vial) 5 mg PRN Q6HRS PRN 02/04/18 17:30 02/05/18 13:05 5 MG Metronidazole 100 ml @ 100 mls/hr Q12HR 02/04/18 17:30 02/06/18 22:07 100 MLS/HR Morphine Sulfate (Morphine Sulfate) 1 mg PRN Q10MIN PRN 02/04/18 07:00 02/05/18 06:59 DC Neostigmine Methylsulfate (Neostigmine Methylsulfate) 5 mg STK-MED ONCE 02/03/18 09:55 02/03/18 09:56 DC Ondansetron HCl (Zofran) 4 mg STK-MED ONCE 02/05/18 11:01 02/05/18 11:03 DC Oxycodone/ Acetaminophen (Percocet 5/325) 1 tab 1X PACU PRN 02/03/18 12:15 02/03/18 20:00 DC 02/03/18 12:20 1 TAB Phenylephrine HCl (PHENYLEPHRINE in 0.9% NACL PF) 1 mg STK-MED ONCE 02/03/18 09:24 02/03/18 09:25 DC Potassium Chloride/Sodium Chloride 1,000 ml @ 75 mls/hr [id number] 02/03/18 10:46 02/04/18 11:37 DC 02/03/18 23:55 75 MLS/HR Prochlorperazine Edisylate (Compazine) 5 mg PACU PRN PRN 02/04/18 07:00 02/05/18 06:59 DC Propofol 0 ml @ As Directed STK-MED ONCE 02/04/18 13:50 02/04/18 13:51 DC Ringer's Solution 1,000 ml @ 75 mls/hr [id number] 02/05/18 10:00 02/06/18 13:12 DC 02/05/18 09:52 75 MLS/HR Rocuronium [place] (Zemuron) 50 mg STK-MED ONCE 02/03/18 08:09 02/03/18 08:10 DC Sodium Chloride 1,000 ml @ 100 mls/hr Q10H 02/04/18 12:00 02/06/18 13:12 DC 02/05/18 21:05 100 MLS/HR Sodium Chloride (Normal Saline Flush) 3 ml QSHIFT PRN 02/03/18 11:00 Lab Laboratory Tests Test 02/06/18 11:10 02/07/18 02:38 O2 Saturation 84 % (92-99) 90 % (92-99) Arterial Blood pH 7.31 (7.35-7.45) 7.25 (7.35-7.45) Arterial Blood pCO2 at Patient Temp 49 mmHg (35-46) 49 mmHg (35-46) Arterial Blood pO2 at Patient Temp 51 mmHg (65-108) 66 mmHg (65-108) Arterial Blood HCO3 24 mmol/L (21-28) 21 mmol/L (21-28) Arterial Blood Base Excess -2 mmol/L (-3-3) -6 mmol/L (-3-3) FiO2 2 lpm nc 50 Results All relevant outside records, renal labs, imaging studies, telemetry/EKG's were reviewed. JOSEFINA WHITNEY MD Feb 07, 2018 08:50
[2018-02-07] MEDS: DOCUSATE SODIUM 100 MG CAPSULE. PO SCH ×2 (09:00→21:00)
[2018-02-07] MEDS ORDERED: MAGNESIUM SULFATE 2GM 50 ML IV PRN (09:00)
--- NOTE | 2018-02-07 09:52 | PDOC ---
SURGICAL PROGRESS NOTE Subjective Pt with delirium last night, sedated this AM Vital Signs Vital Signs Date Time Temp Pulse Resp B/P (MAP) Pulse Ox O2 Delivery O2 Flow Rate FiO2 02/07/18 09:18 17 99 BiPAP/CPAP 02/07/18 09:00 83 151/72 (98) 02/07/18 08:55 12.0 02/07/18 07:00 99.2 99.2 I&O Intake and Output 02/07/18 07:00 Intake Total 50 ml Output Total 1460 ml Balance -1410 ml Intake Oral 50 ml Output Urine Total 1460 ml General: No acute distress Abdomen: Soft, No tenderness Labs Laboratory Tests Test 02/05/18 15:00 02/06/18 03:00 02/06/18 11:10 02/07/18 02:38 O2 Saturation 89 % (92-99) 84 % (92-99) 90 % (92-99) Arterial Blood pH 7.30 (7.35-7.45) 7.31 (7.35-7.45) 7.25 (7.35-7.45) Arterial Blood pCO2 at Patient Temp 46 mmHg (35-46) 49 mmHg (35-46) 49 mmHg (35-46) Arterial Blood pO2 at Patient Temp 57 mmHg (65-108) 51 mmHg (65-108) 66 mmHg (65-108) Arterial Blood HCO3 22 mmol/L (21-28) 24 mmol/L (21-28) 21 mmol/L (21-28) Arterial Blood Base Excess -5 mmol/L (-3-3) -2 mmol/L (-3-3) -6 mmol/L (-3-3) FiO2 35 2 lpm nc 50 White Blood Count 18.3 x10^3/uL (4.0-11.0) Red Blood Count 2.91 x10^6/uL (4.30-5.70) Hemoglobin 9.2 g/dL (13.0-17.5) Hematocrit 28.1 % (39.0-53.0) Mean Corpuscular Volume 96 fL (79-100) Mean Corpuscular Hemoglobin 32 pg (25-35) Mean Corpuscular Hemoglobin Concent 33 g/dL (31-37) Red Cell Distribution Width 14.8 % (11.5-14.5) Platelet Count 109 x10^3/uL (140-400) Neutrophils (%) (Auto) 91 % (31-73) Lymphocytes (%) (Auto) 2 % (24-48) Monocytes (%) (Auto) 6 % (0-9) Eosinophils (%) (Auto) 0 % (0-3) Basophils (%) (Auto) 0 % (0-3) Neutrophils # (Auto) 16.7 x10^3uL (1.8-7.7) Lymphocytes # (Auto) 0.4 x10^3/uL (1.0-4.8) Monocytes # (Auto) 1.2 x10^3/uL (0.0-1.1) Eosinophils # (Auto) 0.0 x10^3/uL (0.0-0.7) Basophils # (Auto) 0.0 x10^3/uL (0.0-0.2) Sodium Level 139 mmol/L (136-145) Potassium Level 5.1 mmol/L (3.5-5.1) Chloride Level 105 mmol/L (98-107) Carbon Dioxide Level 25 mmol/L (21-32) Anion Gap 9 (6-14) Blood Urea Nitrogen 75 mg/dL (8-26) Creatinine 3.2 mg/dL (0.7-1.3) Estimated GFR (Cockcroft-Gault) 19.0 BUN/Creatinine Ratio 23 (6-20) Glucose Level 83 mg/dL (70-99) Calcium Level 10.7 mg/dL (8.5-10.1) Total Bilirubin 3.3 mg/dL (0.2-1.0) Aspartate Amino Transf (AST/SGOT) 21 U/L (15-37) Alanine Aminotransferase (ALT/SGPT) 17 U/L (16-63) Alkaline Phosphatase 59 U/L (46-116) Total Protein 6.1 g/dL (6.4-8.2) Albumin 2.4 g/dL (3.4-5.0) Albumin/Globulin Ratio 0.6 (1.0-1.7) Amylase Level 40 U/L (25-115) Lipase 57 U/L (73-393) Laboratory Tests Test 02/06/18 11:10 02/07/18 02:38 O2 Saturation 84 % (92-99) 90 % (92-99) Arterial Blood pH 7.31 (7.35-7.45) 7.25 (7.35-7.45) Arterial Blood pCO2 at Patient Temp 49 mmHg (35-46) 49 mmHg (35-46) Arterial Blood pO2 at Patient Temp 51 mmHg (65-108) 66 mmHg (65-108) Arterial Blood HCO3 24 mmol/L (21-28) 21 mmol/L (21-28) Arterial Blood Base Excess -2 mmol/L (-3-3) -6 mmol/L (-3-3) FiO2 2 lpm nc 50 Problem List s/p lap vilma cont critical care no surgical plans JUNIE CARBONE MD Feb 07, 2018 09:52
--- NOTE | 2018-02-07 09:53 | PDOC ---
G I PROGRESS NOTE Subjective Obtunded on BIPAP. Objective Restless overnight/increasing O2 requirements. Physical Exam Lungs with coarse sounds. RRR Abdomen soft, protuberant, bowel sounds present. Review of Relevant I have reviewed the following items aron (where applicable) has been applied. Labs Laboratory Tests Test 02/05/18 15:00 02/06/18 03:00 02/06/18 11:10 02/07/18 02:38 O2 Saturation 89 % (92-99) 84 % (92-99) 90 % (92-99) Arterial Blood pH 7.30 (7.35-7.45) 7.31 (7.35-7.45) 7.25 (7.35-7.45) Arterial Blood pCO2 at Patient Temp 46 mmHg (35-46) 49 mmHg (35-46) 49 mmHg (35-46) Arterial Blood pO2 at Patient Temp 57 mmHg (65-108) 51 mmHg (65-108) 66 mmHg (65-108) Arterial Blood HCO3 22 mmol/L (21-28) 24 mmol/L (21-28) 21 mmol/L (21-28) Arterial Blood Base Excess -5 mmol/L (-3-3) -2 mmol/L (-3-3) -6 mmol/L (-3-3) FiO2 35 2 lpm nc 50 White Blood Count 18.3 x10^3/uL (4.0-11.0) Red Blood Count 2.91 x10^6/uL (4.30-5.70) Hemoglobin 9.2 g/dL (13.0-17.5) Hematocrit 28.1 % (39.0-53.0) Mean Corpuscular Volume 96 fL (79-100) Mean Corpuscular Hemoglobin 32 pg (25-35) Mean Corpuscular Hemoglobin Concent 33 g/dL (31-37) Red Cell Distribution Width 14.8 % (11.5-14.5) Platelet Count 109 x10^3/uL (140-400) Neutrophils (%) (Auto) 91 % (31-73) Lymphocytes (%) (Auto) 2 % (24-48) Monocytes (%) (Auto) 6 % (0-9) Eosinophils (%) (Auto) 0 % (0-3) Basophils (%) (Auto) 0 % (0-3) Neutrophils # (Auto) 16.7 x10^3uL (1.8-7.7) Lymphocytes # (Auto) 0.4 x10^3/uL (1.0-4.8) Monocytes # (Auto) 1.2 x10^3/uL (0.0-1.1) Eosinophils # (Auto) 0.0 x10^3/uL (0.0-0.7) Basophils # (Auto) 0.0 x10^3/uL (0.0-0.2) Sodium Level 139 mmol/L (136-145) Potassium Level 5.1 mmol/L (3.5-5.1) Chloride Level 105 mmol/L (98-107) Carbon Dioxide Level 25 mmol/L (21-32) Anion Gap 9 (6-14) Blood Urea Nitrogen 75 mg/dL (8-26) Creatinine 3.2 mg/dL (0.7-1.3) Estimated GFR (Cockcroft-Gault) 19.0 BUN/Creatinine Ratio 23 (6-20) Glucose Level 83 mg/dL (70-99) Calcium Level 10.7 mg/dL (8.5-10.1) Total Bilirubin 3.3 mg/dL (0.2-1.0) Aspartate Amino Transf (AST/SGOT) 21 U/L (15-37) Alanine Aminotransferase (ALT/SGPT) 17 U/L (16-63) Alkaline Phosphatase 59 U/L (46-116) Total Protein 6.1 g/dL (6.4-8.2) Albumin 2.4 g/dL (3.4-5.0) Albumin/Globulin Ratio 0.6 (1.0-1.7) Amylase Level 40 U/L (25-115) Lipase 57 U/L (73-393) Laboratory Tests Test 02/06/18 11:10 02/07/18 02:38 O2 Saturation 84 % (92-99) 90 % (92-99) Arterial Blood pH 7.31 (7.35-7.45) 7.25 (7.35-7.45) Arterial Blood pCO2 at Patient Temp 49 mmHg (35-46) 49 mmHg (35-46) Arterial Blood pO2 at Patient Temp 51 mmHg (65-108) 66 mmHg (65-108) Arterial Blood HCO3 24 mmol/L (21-28) 21 mmol/L (21-28) Arterial Blood Base Excess -2 mmol/L (-3-3) -6 mmol/L (-3-3) FiO2 2 lpm nc 50 Microbiology 02/04/18 Blood Culture - Preliminary, Resulted NO GROWTH AFTER 2 DAYS Medications Current Medications Ondansetron HCl (Zofran) 4 mg PRN Q6HRS PRN IV NAUSEA/VOMITING Last administered on 02/04/18at 04:08; Start 02/03/18 at 07:00; Stop 02/04/18 at 06:59; Status DC Fentanyl Citrate (Fentanyl 2ml Vial) 25 mcg PRN Q5MIN PRN IV MILD PAIN Last administered on 02/03/18at 12:13; Start 02/03/18 at 07:00; Stop 02/04/18 at 06:59; Status DC Fentanyl Citrate (Fentanyl 2ml Vial) 50 mcg PRN Q5MIN PRN IV MODERATE TO SEVERE PAIN; Start 02/03/18 at 07:00; Stop 02/04/18 at 06:59; Status DC Morphine Sulfate (Morphine Sulfate) 1 mg PRN Q10MIN PRN IV SEVERE PAIN Last administered on 02/03/18at 11:42; Start 02/03/18 at 07:00; Stop 02/04/18 at 06:59; Status DC Ringer's Solution 1,000 ml @ 30 mls/hr Q24H IV Last administered on 02/03/18at 09:13; Start 02/03/18 at 07:00; Stop 02/03/18 at 18:59; Status DC Lidocaine HCl (Xylocaine-Mpf 1% Vial) 2 ml PRN 1X PRN ID PRIOR TO IV START; Start 02/03/18 at 07:00; Stop 02/04/18 at 06:59; Status DC Prochlorperazine Edisylate (Compazine) 5 mg PACU PRN PRN IV NAUSEA, MRX1; Start 02/03/18 at 07:00; Stop 02/04/18 at 06:59; Status DC Cefazolin Sodium/ Dextrose 50 ml @ 100 mls/hr 1X PREOP PRN IV PRIOR TO SURGERY Last administered on 02/03/18at 09:35; Start 02/03/18 at 08:00; Stop at 14:44; Status DC Fentanyl Citrate (Fentanyl 2ml Vial) 100 mcg STK-MED ONCE .ROUTE ; Start at 08:09; Stop 02/03/18 at 08:10; Status DC Rocuronium [place] (Zemuron) 50 mg STK-MED ONCE .ROUTE ; Start 02/03/18 at 08:09 ; Stop 02/03/18 at 08:10; Status DC Desflurane (Suprane) 60 ml STK-MED ONCE IH ; Start 02/03/18 at 08:09; Stop at 08:10; Status DC Dexamethasone Sodium Phosphate (Decadron) 20 mg STK-MED ONCE .ROUTE ; Start 02/03 at 08:09; Stop 02/03/18 at 08:10; Status DC Propofol 20 ml @ As Directed STK-MED ONCE IV ; Start 02/03/18 at 08:09; Stop 02/03 at 08:10; Status DC Lidocaine HCl (Lidocaine Pf 2% Vial) 5 ml STK-MED ONCE .ROUTE ; Start 02/03/18 at 08:09; Stop 02/03/18 at 08:10; Status DC Ondansetron HCl (Zofran) 4 mg STK-MED ONCE .ROUTE ; Start 02/03/18 at 08:09; Stop 02/03/18 at 08:10; Status DC Ketorolac Tromethamine (Toradol For Or Only) 30 mg STK-MED ONCE INJ ; Start 02/03 at 08:09; Stop 02/03/18 at 08:10; Status DC Ephedrine Sulfate (ePHEDrine PF IN SALINE SYRINGE) 50 mg STK-MED ONCE IV ; Start 02/03/18 at 08:15; Stop 02/03/18 at 08:16; Status DC Bupivacaine HCl/ Epinephrine Bitart (Marcaine-Epi 0.5%-[id number]) 50 ml STK-MED ONCE .ROUTE Last administered on 02/03/18at 09:49; Start 02/03/18 at 07:56; Stop 02/03/18 at 08:57; Status DC Iohexol (Omnipaque 300 Mg/ml) 100 ml STK-MED ONCE .ROUTE Last administered on at 09:49; Start 02/03/18 at 07:56; Stop 02/03/18 at 08:58; Status DC Phenylephrine HCl (PHENYLEPHRINE in 0.9% NACL PF) 1 mg STK-MED ONCE IV ; Start 02/03/18 at 09:24; Stop 02/03/18 at 09:25; Status DC Glycopyrrolate (Robinul) 1 mg STK-MED ONCE .ROUTE ; Start 02/03/18 at 09:55; Stop 02/03/18 at 09:56; Status DC Neostigmine Methylsulfate (Neostigmine Methylsulfate) 5 mg STK-MED ONCE .ROUTE ; Start 02/03/18 at 09:55; Stop 02/03/18 at 09:56; Status DC Albuterol Sulfate (Ventolin Neb Soln) 2.5 mg 1X PACU PRN NEB SHORTNESS OF BREATH Last administered on 02/03/18at 10:53; Start 02/03/18 at 11:00; Stop at 17:39; Status DC Diphenhydramine HCl (Benadryl) 25 mg PRN Q6HRS PRN PO ITCHING; Start 02/03/18 at 11:00 Diphenhydramine HCl (Benadryl) 25 mg PRN Q6HRS PRN IV ITCHING Last administered on 02/07/18at 08:48; Start 02/03/18 at 11:00 Enoxaparin Sodium (Lovenox 40mg Syringe) 40 mg Q24H SQ ; Start 02/03/18 at 11:00 ; Status Cancel Sodium Chloride (Normal Saline Flush) 3 ml QSHIFT PRN IV AFTER MEDS AND BLOOD DRAWS; Start 02/03/18 at 11:00 Potassium Chloride/Sodium Chloride 1,000 ml @ 75 mls/hr [id number] IV Last administered on 02/03/18at 23:55; Start 02/03/18 at 10:46; Stop 02/04/18 at 11:37; Status DC Dextrose (Dextrose 50%-Water Syringe) 12.5 gm PRN Q15MIN PRN IV SEE COMMENTS; Start 02/03/18 at 11:00 Oxycodone/ Acetaminophen (Percocet 5/325) 1 tab PRN Q4HRS PRN PO MILD PAIN, 1ST CHOICE Last administered on 02/03/18at 22:41; Start 02/03/18 at 11:00 Oxycodone/ Acetaminophen (Percocet 5/325) 2 tab PRN Q4HRS PRN PO MODERATE PAIN , SEVERE PAIN; Start 02/03/18 at 11:00 Morphine Sulfate (Morphine Sulfate) 5 mg PRN Q3HRS PRN IV MODERATE TO SEVERE PAIN Last administered on 02/07/18at 08:48; Start 02/03/18 at 11:15 Docusate Sodium (Colace) 100 mg BID PO Last administered on 02/03/18at 21:07; Start 02/03/18 at 11:00 Ondansetron HCl (Zofran) 4 mg PRN Q6HRS PRN IV NAUESA, 1ST CHOICE Last administered on 02/04/18at 16:22; Start 02/03/18 at 11:00 Enoxaparin Sodium (Lovenox 40mg Syringe) 40 mg Q24H SQ ; Start 02/04/18 at 09:00 ; Stop 02/04/18 at 09:00; Status DC Hydralazine HCl (Apresoline Inj) 10 mg 1X PACU PRN IVP ELEVATED BP, SEE COMMENTS; Start 02/03/18 at 12:15; Stop 02/03/18 at 20:00; Status DC Oxycodone/ Acetaminophen (Percocet 5/325) 1 tab 1X PACU PRN PO PAIN Last administered on 02/03/18at 12:20; Start 02/03/18 at 12:15; Stop 02/03/18 at 20:00; Status DC Albuterol Sulfate (Ventolin Neb Soln) 2.5 mg PRN Q2HR PRN NEB [id number] Last administered on 02/04/18at 04:11; Start 02/03/18 at 15:00 Albuterol/ Ipratropium (Duoneb) 3 ml RTQID NEB Last administered on 02/07/18at 08 :00; Start 02/03/18 at 16:00 Ondansetron HCl (Zofran) 4 mg PRN Q6HRS PRN IV NAUSEA/VOMITING; Start 02/04/18 at 07:00; Stop 02/05/18 at 06:59; Status DC Fentanyl Citrate (Fentanyl 2ml Vial) 25 mcg PRN Q5MIN PRN IV MILD PAIN; Start 02/04/18 at 07:00; Stop 02/05/18 at 06:59; Status DC Fentanyl Citrate (Fentanyl 2ml Vial) 50 mcg PRN Q5MIN PRN IV MODERATE TO SEVERE PAIN; Start 02/04/18 at 07:00; Stop 02/05/18 at 06:59; Status DC Morphine Sulfate (Morphine Sulfate) 1 mg PRN Q10MIN PRN IV SEVERE PAIN; Start 02/04/18 at 07:00; Stop 02/05/18 at 06:59; Status DC Ringer's Solution 1,000 ml @ 30 mls/hr Q24H IV ; Start 02/04/18 at 07:00; Stop 02/04/18 at 18:59; Status DC Lidocaine HCl (Xylocaine-Mpf 1% Vial) 2 ml PRN 1X PRN ID IV START; Start at 07:00; Stop 02/05/18 at 06:59; Status DC Prochlorperazine Edisylate (Compazine) 5 mg PACU PRN PRN IV NAUSEA, MRX1; Start 02/04/18 at 07:00; Stop 02/05/18 at 06:59; Status DC Furosemide (Lasix) 40 mg 1X ONCE IVP Last administered on 02/04/18at 12:47; Start 02/04/18 at 11:45; Stop 02/04/18 at 11:46; Status DC Sodium Chloride 1,000 ml @ 100 mls/hr Q10H IV Last administered on 02/05/18at 21 :05; Start 02/04/18 at 12:00; Stop 02/06/18 at 13:12; Status DC Hydralazine HCl (Apresoline Inj) 10 mg PRN Q4HRS PRN IVP ELEVATED BP, SEE COMMENTS Last administered on 02/07/18at 03:10; Start 02/04/18 at 12:15 Iohexol (Omnipaque 300 Mg/ml) 100 ml STK-MED ONCE .ROUTE ; Start 02/04/18 at 12: 11; Stop 02/04/18 at 12:12; Status DC Cefazolin Sodium/ Dextrose (Ancef 2gm Premix) 2 gm STK-MED ONCE IV ; Start at 07:00; Stop 02/04/18 at 12:31; Status DC Propofol 0 ml @ As Directed STK-MED ONCE IV ; Start 02/04/18 at 13:50; Stop at 13:51; Status DC Lidocaine HCl (Lidocaine Pf 2% Vial) 5 ml STK-MED ONCE .ROUTE ; Start 02/04/18 at 13:50; Stop 02/04/18 at 13:51; Status DC Famotidine (Pepcid Vial) 20 mg STK-MED ONCE .ROUTE ; Start 02/04/18 at 13:50; Stop 02/04/18 at 13:51; Status DC Dexamethasone Sodium Phosphate (Decadron) 20 mg STK-MED ONCE .ROUTE ; Start 02/04 at 13:50; Stop 02/04/18 at 13:52; Status DC Ondansetron HCl (Zofran) 4 mg STK-MED ONCE .ROUTE ; Start 02/04/18 at 13:50; Stop 02/04/18 at 13:52; Status DC Lorazepam (Ativan) 0.5 mg PRN Q8HRS PRN PO ANXIETY / AGITATION; Start 02/04/18 at 15:15 Furosemide (Lasix) 40 mg 1X ONCE IVP Last administered on 02/04/18at 17:00; Start 02/04/18 at 16:45; Stop 02/04/18 at 16:46; Status DC Ciprofloxacin/ Dextrose 200 ml @ 200 mls/hr Q12HR IV Last administered on at 08:10; Start 02/04/18 at 17:30; Stop 02/06/18 at 14:49; Status DC Metronidazole 100 ml @ 100 mls/hr Q12HR IV Last administered on 02/06/18at 22:07 ; Start 02/04/18 at 17:30 Metoclopramide HCl (Reglan Vial) 5 mg PRN Q6HRS PRN IV NAUSEA/VOMITING 2nd CHOICE Last administered on 02/05/18at 13:05; Start 02/04/18 at 17:30 Lorazepam (Ativan) 0.5 mg PRN Q6HRS PRN IV ANXIETY / AGITATION Last administered on 02/07/18at 06:05; Start 02/04/18 at 20:45 Acetaminophen (Tylenol) 500 mg PRN Q4HRS PRN PO FEVER; Start 02/04/18 at 22:15 Furosemide (Lasix) 40 mg 1X ONCE IVP Last administered on 02/05/18at 01:15; Start 02/05/18 at 01:30; Stop 02/05/18 at 01:31; Status DC Ringer's Solution 1,000 ml @ 75 mls/hr [id number] IV Last administered on at 09:52; Start 02/05/18 at 10:00; Stop 02/06/18 at 13:12; Status DC Iohexol (Omnipaque 300 Mg/ml) 100 ml STK-MED ONCE .ROUTE ; Start 02/05/18 at 10: 10; Stop 02/05/18 at 10:11; Status DC Fentanyl Citrate (Fentanyl 2ml Vial) 100 mcg STK-MED ONCE .ROUTE ; Start at 10:33; Stop 02/05/18 at 10:34; Status DC Ondansetron HCl (Zofran) 4 mg STK-MED ONCE .ROUTE ; Start 02/05/18 at 11:01; Stop 02/05/18 at 11:03; Status DC Iohexol (Omnipaque 300 Mg/ml) 100 ml STK-MED ONCE IV Last administered on at 11:27; Start 02/05/18 at 11:27; Stop 02/05/18 at 11:29; Status DC Haloperidol Lactate (Haldol Inj) 5 mg PRN Q6HRS PRN IVP AGITATION Last administered on 02/07/18at 06:05; Start 02/05/18 at 12:30 Ciprofloxacin/ Dextrose 200 ml @ 200 mls/hr Q24H IV Last administered on at 09:44; Start 02/07/18 at 08:00 Magnesium Sulfate 50 ml @ 25 mls/hr PRN DAILY PRN IV for Mag < 1.7 on am labs; Start 02/07/18 at 09:00 Darbepoetin Rob (Aranesp) 60 mcg [id number] SQ ; Start 02/07/18 at 21:00 Active Scripts Active Reported Ferrous Sulfate 325 Mg Tablet 1 Tab PO DAILY Super B Complex-Vitamin C (B Complex With Vitamin C) 1 Each Tablet 1 Each PO Warfarin Sodium 5 Mg Tablet 7.5 Mg PO QTUTHSA Amiodarone Hcl 200 Mg Tablet 100 Mg PO DAILY Furosemide 20 Mg Tablet 10 Mg PO QMWF Metoprolol Succinate ( Xl ) (Metoprolol Succinate) 25 Mg Tab.er.24h 1 Tab PO QPM Calcitriol 0.25 Mcg Capsule 0.25 Mcg PO QM-W-F Warfarin Sodium 5 Mg Tablet 5 Mg PO QMWF Loratadine 10 Mg Tablet 10 Mg PO QHS Tamsulosin Hcl 0.4 Mg Cap.er.24h 0.4 Mg PO QHS Atorvastatin Calcium 10 Mg Tablet 10 Mg PO HS Duoneb 0.5-3(2.5) Mg/3 Ml (Albuterol/Ipratropium) 3 Ml Ampul.neb 3 Ml IH TID PRN Flonase (Fluticasone Propionate) 16 Gm Osgood.susp 2 Osgood NS BID Vitals/I & O Vital Sign - Last 24 Hours 02/06/18 02/06/18 02/06/18 02/06/18 10:00 11:00 11:19 12:00 Pulse 84 76 92 Resp 21 21 21 B/P (MAP) 151/65 (93) Pulse Ox 97 97 95 97 O2 Delivery Venturi Mask Venturi Mask Nasal Cannula Venturi Mask O2 Flow Rate 2.0 02/06/18 02/06/18 02/06/18 02/06/18 12:00 12:00 13:00 14:00 Pulse 82 78 Resp 21 21 B/P (MAP) 135/62 (86) 142/66 (91) Pulse Ox 97 97 O2 Delivery Venturi Mask Venturi Mask Venturi Mask O2 Flow Rate 12.0 12.0 02/06/18 02/06/18 02/06/18 02/06/18 15:00 15:52 16:00 16:00 Pulse 84 Resp 21 B/P (MAP) 119/65 (83) Pulse Ox 97 96 O2 Delivery Venturi Mask Venturi Mask Venturi Mask O2 Flow Rate 12.0 12.0 12.0 02/06/18 02/06/18 02/06/18 02/06/18 16:00 16:58 17:00 17:35 Pulse 84 82 Resp 21 21 B/P (MAP) 133/69 (90) Pulse Ox 97 95 97 95 O2 Delivery Venturi Mask BiPAP/CPAP Venturi Mask BiPAP/CPAP 02/06/18 02/06/18 02/06/18 02/06/18 18:00 19:00 19:33 20:00 Pulse 80 81 Resp 21 30 B/P (MAP) 149/64 (92) Pulse Ox 97 90 92 O2 Delivery Venturi Mask Venturi Mask Venturi Mask Venturi Mask O2 Flow Rate 12.0 12.0 8//18 8//18 8//18 8//18 20:00 21:00 22:00 23:00 Temp 98.1 98.1 Pulse 78 90 80 83 Resp 19 28 19 22 B/P (MAP) 164/61 (95) 176/67 (103) 160/68 (98) 135/60 (85) Pulse Ox 93 91 93 88 O2 Delivery Nasal Cannula Nasal Cannula Venturi Mask BiPAP/CPAP O2 Flow Rate 5.0 5.0 35.0 8//18 8//18 8//18 8//18 23:41 00:00 00:00 01:00 Temp 99.1 99.1 Pulse 85 79 Resp 24 22 B/P (MAP) 144/65 (91) 158/66 (96) Pulse Ox 92 92 O2 Delivery Venturi Mask Venturi Mask Venturi Mask O2 Flow Rate 35.0 12.0 02/07/ 8//18 8/5/18 02/07/18 01:37 02:00 02:07 03:00 Pulse 88 89 Resp 24 25 24 B/P (MAP) 136/67 (90) 194/86 (122) Pulse Ox 88 92 92 O2 Delivery Venturi Mask Venturi Mask BiPAP/CPAP O2 Flow Rate 12.0 12.0 02/07/18 8//18 8/5/18 8//18 03:06 03:10 04:00 04:00 Pulse 99 B/P (MAP) 194/86 Pulse Ox 92 O2 Delivery BiPAP/CPAP Bi-pap O2 Flow Rate 12.0 02/07/18 8/18 8//18 18 04:00 05:00 05:49 06:00 Pulse 89 76 81 Resp 16 16 16 B/P (MAP) 125/58 (80) 140/69 (92) 152/82 (105) Pulse Ox 92 94 94 95 O2 Delivery BiPAP/CPAP BiPAP/CPAP BiPAP/CPAP BiPAP/CPAP 02/07/1802/07/ 8/18 18 07:00 08:00 08:00 08:00 Temp 99.2 99.2 Pulse 77 78 Resp 19 17 B/P (MAP) 147/71 (96) 148/72 (97) Pulse Ox 98 98 94 O2 Delivery BiPAP/CPAP Bi-pap BiPAP/CPAP BiPAP/CPAP 02/07/18 02/07/18 02/07/18 02/07/18 08:48 08:55 09:00 09:18 Pulse 83 Resp 21 17 17 B/P (MAP) 151/72 (98) Pulse Ox 96 98 99 O2 Delivery BiPAP/CPAP BiPAP/CPAP O2 Flow Rate 12.0 Intake and Output 02/06/18 02/06/18 02/07/18 15:00 23:00 07:00 Intake Total 50 ml Output Total 1025 ml 435 ml Balance -975 ml -435 ml Assessment Choledocholithiasis, resolved post-ERCP Acidosis persists; bicarb not that bad. Respiratory? Plan of Care: Continue current Tx, Mgmt Plan of Care Note As able, OK to try po. SUSSY GRIJALVA MD Feb 07, 2018 09:53
--- NOTE | 2018-02-07 10:19 | RAD ---
Examination: Single frontal view the chest HISTORY: History of shortness of breath COMPARISON: 02/05/2018 FINDINGS: Low lung volumes and technique accentuates heart size and pulmonary vascularity. Mild cardiomegaly. Left-sided cardiac pacer is identified. Mild left lung base airspace opacities likely atelectasis or infiltrate. Mild bibasilar lung infiltrates or atelectasis similar to prior exam. IMPRESSION: Unchanged exam. Electronically signed by: Santino Miner MD (02/07/2018 10:15 AM) [facility]
--- NOTE | 2018-02-07 12:18 | PDOC ---
PULMONARY PROGRESS NOTES Subjective ON BIPAP LAST POLO INCREASE AGITATION NOW SEDATED Vitals Vital Signs Date Time Temp Pulse Resp B/P (MAP) Pulse Ox O2 Delivery O2 Flow Rate FiO2 02/07/18 11:00 80 14 125/70 (88) 99 BiPAP/CPAP 02/07/18 08:55 12.0 02/07/18 07:00 99.2 99.2 General: Alert Lungs: Clear, Crackles Cardiovascular: S1, S2 Abdomen: Soft, Non-tender, Other (DISTENDED) Neuro Exam: Alert Extremities: No Edema Skin: Warm Labs Laboratory Tests Test 02/05/18 15:00 02/06/18 03:00 02/06/18 11:10 02/07/18 02:38 O2 Saturation 89 % (92-99) 84 % (92-99) 90 % (92-99) Arterial Blood pH 7.30 (7.35-7.45) 7.31 (7.35-7.45) 7.25 (7.35-7.45) Arterial Blood pCO2 at Patient Temp 46 mmHg (35-46) 49 mmHg (35-46) 49 mmHg (35-46) Arterial Blood pO2 at Patient Temp 57 mmHg (65-108) 51 mmHg (65-108) 66 mmHg (65-108) Arterial Blood HCO3 22 mmol/L (21-28) 24 mmol/L (21-28) 21 mmol/L (21-28) Arterial Blood Base Excess -5 mmol/L (-3-3) -2 mmol/L (-3-3) -6 mmol/L (-3-3) FiO2 35 2 lpm nc 50 White Blood Count 18.3 x10^3/uL (4.0-11.0) Red Blood Count 2.91 x10^6/uL (4.30-5.70) Hemoglobin 9.2 g/dL (13.0-17.5) Hematocrit 28.1 % (39.0-53.0) Mean Corpuscular Volume 96 fL (79-100) Mean Corpuscular Hemoglobin 32 pg (25-35) Mean Corpuscular Hemoglobin Concent 33 g/dL (31-37) Red Cell Distribution Width 14.8 % (11.5-14.5) Platelet Count 109 x10^3/uL (140-400) Neutrophils (%) (Auto) 91 % (31-73) Lymphocytes (%) (Auto) 2 % (24-48) Monocytes (%) (Auto) 6 % (0-9) Eosinophils (%) (Auto) 0 % (0-3) Basophils (%) (Auto) 0 % (0-3) Neutrophils # (Auto) 16.7 x10^3uL (1.8-7.7) Lymphocytes # (Auto) 0.4 x10^3/uL (1.0-4.8) Monocytes # (Auto) 1.2 x10^3/uL (0.0-1.1) Eosinophils # (Auto) 0.0 x10^3/uL (0.0-0.7) Basophils # (Auto) 0.0 x10^3/uL (0.0-0.2) Sodium Level 139 mmol/L (136-145) Potassium Level 5.1 mmol/L (3.5-5.1) Chloride Level 105 mmol/L (98-107) Carbon Dioxide Level 25 mmol/L (21-32) Anion Gap 9 (6-14) Blood Urea Nitrogen 75 mg/dL (8-26) Creatinine 3.2 mg/dL (0.7-1.3) Estimated GFR (Cockcroft-Gault) 19.0 BUN/Creatinine Ratio 23 (6-20) Glucose Level 83 mg/dL (70-99) Calcium Level 10.7 mg/dL (8.5-10.1) Total Bilirubin 3.3 mg/dL (0.2-1.0) Aspartate Amino Transf (AST/SGOT) 21 U/L (15-37) Alanine Aminotransferase (ALT/SGPT) 17 U/L (16-63) Alkaline Phosphatase 59 U/L (46-116) Total Protein 6.1 g/dL (6.4-8.2) Albumin 2.4 g/dL (3.4-5.0) Albumin/Globulin Ratio 0.6 (1.0-1.7) Amylase Level 40 U/L (25-115) Lipase 57 U/L (73-393) Laboratory Tests Test 02/07/18 02:38 O2 Saturation 90 % (92-99) Arterial Blood pH 7.25 (7.35-7.45) Arterial Blood pCO2 at Patient Temp 49 mmHg (35-46) Arterial Blood pO2 at Patient Temp 66 mmHg (65-108) Arterial Blood HCO3 21 mmol/L (21-28) Arterial Blood Base Excess -6 mmol/L (-3-3) FiO2 50 Medications Active Scripts Medications Dose Route/Sig Max Daily Dose Days Date Category Ferrous Sulfate 325 Mg Tablet 1 Tab PO DAILY 01/28/18 Reported Super B Complex-Vitamin C (B Complex With Vitamin C) 1 Each Tablet 1 Each PO 12/04/17 Reported Warfarin Sodium 5 Mg Tablet 7.5 Mg PO QTUTHSA 06/10/17 Reported Amiodarone Hcl 200 Mg Tablet 100 Mg PO DAILY 06/10/17 Reported Furosemide 20 Mg Tablet 10 Mg PO QMWF 06/10/17 Reported Metoprolol Succinate ( Xl ) (Metoprolol Succinate) 25 Mg Tab.er.24h 1 Tab PO QPM 11/13/16 Reported Calcitriol 0.25 Mcg Capsule 0.25 Mcg PO QM-W-F 05/24/16 Reported Warfarin Sodium 5 Mg Tablet 5 Mg PO QMWF 05/24/16 Reported Loratadine 10 Mg Tablet 10 Mg PO QHS 10/16/14 Reported Tamsulosin Hcl 0.4 Mg Cap.er.24h 0.4 Mg PO QHS 10/16/14 Reported Atorvastatin Calcium 10 Mg Tablet 10 Mg PO HS 10/16/14 Reported Duoneb 0.5-3(2.5) Mg/3 Ml (Albuterol/Ipratropium) 3 Ml Ampul.neb 3 Ml IH TID PRN 07/24/14 Reported Flonase (Fluticasone Propionate) 16 Gm Eminence.susp 2 Eminence NS BID 01/06/14 Reported Comments CXR REVIEWED Low lung volumes and technique accentuates heart size and pulmonary vascularity. Mild cardiomegaly. Left-sided cardiac pacer is identified. Mild left lung base airspace opacities likely atelectasis or infiltrate. Mild bibasilar lung infiltrates or atelectasis similar to prior exam. Impression . IMPRESSION: 1. Acute/Chronic resp expected status post laparoscopic cholecystectomy. 03/06 2. Chronic obstructive pulmonary disease of the chronic bronchitic type. 3. Chronic atrial fibrillation. 4. Obstructive sleep apnea. 5. Common Bile duct stone S/P ERCP 02/05 6. JAYDON/CKD 7. METABOLIC ACIDOSIS 02/05 ERCP with sphincterotomy/stone extraction Meds JEM/PRIYANKA Pre-op dx jaundice/abnl IOC/choledocholithiasis Post-op dx choledocholithiasis s/p sphincterotomy/stone extraction large khalida-ampullary diverticulum Plan serial labs monitor for complications possibly advance diet in am if no adverse events Plan . ABG NOTED MOSTLY A METABOLIC ISSUE FROM KIDNEY CONTINUE BIPAP MAY NEED HD WILL DEFER TO NEPHRO CONTINUE POST OP CARE MALORIE D/W WITH RN AND DEENA PEARCE MD Feb 07, 2018 12:18
[2018-02-07 17:16] LABS: BASE EXCESS ABG -4 mmol/L (-3-3); HCO3 ABG 22 mmol/L (21-28); PCO2 ABG 43 mmHg (35-46); PO2 ABG 77 mmHg (65-108); SAT O2 ABG 95 % (92-99)
[2018-02-07 17:18] LABS: FIO2 ABG 40
[2018-02-07] MEDS: DARBEPOETIN ALFA 60 MCG/0.3 ML DISP.SYRIN. SQ SCH (21:30)
[2018-02-08] VITALS (26 sets, daily range): BP systolic 104–181; BP diastolic 51–101
[2018-02-08] MEDS: HALOPERIDOL LACTATE 5 MG/ML VIAL. IVP PRN (03:45)
[2018-02-08 06:34] LABS: ALBUMIN 2.2 g/dL (3.4-5.0); GFR 32.6; PHOSPHORUS 2.9 mg/dL (2.6-4.7); POTASSIUM 5.2 mmol/L (3.5-5.1)
[2018-02-08 07:44] LABS: BASO % 0 % (0-3); EOS % 0 % (0-3); HEMATOCRIT 28.9 % (39.0-53.0); HEMOGLOBIN 9.4 g/dL (13.0-17.5); LYMPH # 0.4 x10^3/uL (1.0-4.8); LYMPH % 4 % (24-48); MEAN CORPUSCULAR HEMOGLOBIN 32 pg (25-35); MEAN CORPUSCULAR HGB CONC 33 g/dL (31-37); MEAN CORPUSCULAR VOLUME 98 fL (79-100); MONO # 1.4 x10^3/uL (0.0-1.1); MONO % 12 % (0-9); NEUT # 10.2 x10^3uL (1.8-7.7); NEUT % 85 % (31-73); PLATELET COUNT 123 x10^3/uL (140-400); RED BLOOD COUNT 2.96 x10^6/uL (4.30-5.70); RED CELL DISTRIBUTION WIDTH 15.2 % (11.5-14.5); WHITE BLOOD COUNT 12.1 x10^3/uL (4.0-11.0)
[2018-02-08] MEDS: IPRATRPIUM/ALBUTEROL 0.5/2.5MG 3 ML NEBU. NEB SCH ×4 (07:57→19:46)
[2018-02-08 08:11] LABS: BASE EXCESS ABG -4 mmol/L (-3-3); HCO3 ABG 22 mmol/L (21-28); PCO2 ABG 48 mmHg (35-46); PO2 ABG 68 mmHg (65-108); SAT O2 ABG 92 % (92-99)
[2018-02-08 08:13] LABS: FIO2 ABG 40
[2018-02-08] MEDS: DOCUSATE SODIUM 100 MG CAPSULE. PO SCH ×2 (08:59→20:18)
--- NOTE | 2018-02-08 09:20 | PDOC ---
SUBJECTIVE ROS On O2 5 lts by NC - Off Bipap, confused OBJECTIVE Vital Signs Vital Signs Date Time Temp Pulse Resp B/P (MAP) Pulse Ox O2 Delivery O2 Flow Rate FiO2 02/08/18 07:45 94 Nasal Cannula 5.0 02/08/18 06:00 80 28 137/60 (85) 02/08/18 04:00 99.9 99.9 I & 0 Intake and Output 02/08/18 07:00 Output Total 1160 ml Balance -1160 ml Output Urine Total 1160 ml PHYSICAL EXAM Physical Exam GEN: On O2 by NC, Mild Resp distress+ HEENT-On O2 BY nc neck- supple LUNGS: CTAB ant HEART: RRR, no murmurs ABD: s/p GB surgery, obese EXTREMITY: No edema SKIN: No rashes, NEURO/PSYCH: Confused - Rodriguez + DIAGNOSIS/ASSESSMENT Assessment & Plan ARF/ ? ATN : Renal function back to his baseline , Good UOP Improved Renal function Creat 2 today Unlikely that Confusion is due to Uremia Current fluid and E-lyte status does not necessitate emergent need for dialysis. 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 \\ ?Resp acidosis- defer to Primary/Pulm AMS - ?ICU delirium Consult neurology HTN:Current BP meds as reviewed. See orders for changes. HypoALbuminemia - As per GS /[employer] External Avoid any nutrition with High Ca and K DW and RN at bed side CxR- Reviewed done- No e/o vol Overload COMMENT/RELEVANT DATA Meds Current Medications Medications (Trade) Dose Ordered Sig/Patricia Start Time Stop Time Status Last Admin Dose Admin Acetaminophen (Tylenol) 500 mg PRN Q4HRS PRN 02/04/18 22:15 Albuterol Sulfate (Ventolin Neb Soln) 2.5 mg PRN Q2HR PRN 02/03/18 15:00 02/04/18 04:11 2.5 MG Albuterol/ Ipratropium (Duoneb) 3 ml RTQID 02/03/18 16:00 02/08/18 07:57 3 ML Bupivacaine HCl/ Epinephrine Bitart (Marcaine-Epi 0.5%-1:[id number]) 50 ml STK-MED ONCE 02/03/18 07:56 02/03/18 08:57 DC 02/03/18 09:49 8 ML Cefazolin Sodium/ Dextrose (Ancef 2gm Premix) 2 gm STK-MED ONCE 02/03/18 07:00 02/04/18 12:31 DC Ciprofloxacin/ Dextrose 200 ml @ 200 mls/hr Q24H 02/07/18 08:00 02/07/18 09:44 200 MLS/HR Darbepoetin Rob (Aranesp) 60 mcg WEEKLYHS 02/07/18 21:00 02/07/18 21:30 60 MCG Desflurane (Suprane) 60 ml STK-MED ONCE 02/03/18 08:09 02/03/18 08:10 DC Dexamethasone Sodium Phosphate (Decadron) 20 mg STK-MED ONCE 02/04/18 13:50 02/04/18 13:52 DC Dextrose (Dextrose 50%-Water Syringe) 12.5 gm PRN Q15MIN PRN 02/03/18 11:00 Diphenhydramine HCl (Benadryl) 25 mg PRN Q6HRS PRN 02/03/18 11:00 02/07/18 14:34 25 MG Docusate Sodium (Colace) 100 mg BID 02/03/18 11:00 02/03/18 21:07 100 MG Enoxaparin Sodium (Lovenox 40mg Syringe) 40 mg Q24H 02/04/18 09:00 02/04/18 09:00 DC Ephedrine Sulfate (ePHEDrine PF IN SALINE SYRINGE) 50 mg STK-MED ONCE 02/03/18 08:15 02/03/18 08:16 DC Famotidine (Pepcid Vial) 20 mg STK-MED ONCE 02/04/18 13:50 02/04/18 13:51 DC Fentanyl Citrate (Fentanyl 2ml Vial) 100 mcg STK-MED ONCE 02/05/18 10:33 02/05/18 10:34 DC Furosemide (Lasix) 40 mg 1X ONCE 02/05/18 01:30 02/05/18 01:31 DC 02/05/18 01:15 40 MG Glycopyrrolate (Robinul) 1 mg STK-MED ONCE 02/03/18 09:55 02/03/18 09:56 DC Haloperidol Lactate (Haldol Inj) 5 mg PRN Q6HRS PRN 02/05/18 12:30 02/08/18 03:45 5 MG Hydralazine HCl (Apresoline Inj) 10 mg PRN Q4HRS PRN 02/04/18 12:15 02/07/18 03:10 10 MG Iohexol (Omnipaque 300 Mg/ml) 100 ml STK-MED ONCE 02/05/18 11:27 02/05/18 11:29 DC 02/05/18 11:27 30 ML Ketorolac Tromethamine (Toradol For Or Only) 30 mg STK-MED ONCE 02/03/18 08:09 02/03/18 08:10 DC Lactobacillus Rhamnosus (Culturelle) 1 cap BID 02/08/18 21:00 Lidocaine HCl (Lidocaine Pf 2% Vial) 5 ml STK-MED ONCE 02/04/18 13:50 02/04/18 13:51 DC Lidocaine HCl (Xylocaine-Mpf 1% Vial) 2 ml PRN 1X PRN 02/04/18 07:00 02/05/18 06:59 DC Lorazepam (Ativan) 0.5 mg PRN Q6HRS PRN 02/04/18 20:45 02/07/18 16:58 0.5 MG Magnesium Sulfate 50 ml @ 25 mls/hr PRN DAILY PRN 02/07/18 09:00 Metoclopramide HCl (Reglan Vial) 5 mg PRN Q6HRS PRN 02/04/18 17:30 02/05/18 13:05 5 MG Metronidazole 100 ml @ 100 mls/hr Q12HR 02/04/18 17:30 02/08/18 08:58 100 MLS/HR Morphine Sulfate (Morphine Sulfate) 1 mg PRN Q10MIN PRN 02/04/18 07:00 02/05/18 06:59 DC Neostigmine Methylsulfate (Neostigmine Methylsulfate) 5 mg STK-MED ONCE 02/03/18 09:55 02/03/18 09:56 DC Ondansetron HCl (Zofran) 4 mg STK-MED ONCE 02/05/18 11:01 02/05/18 11:03 DC Oxycodone/ Acetaminophen (Percocet 5/325) 1 tab 1X PACU PRN 02/03/18 12:15 02/03/18 20:00 DC 02/03/18 12:20 1 TAB Phenylephrine HCl (PHENYLEPHRINE in 0.9% NACL PF) 1 mg STK-MED ONCE 02/03/18 09:24 02/03/18 09:25 DC Potassium Chloride/Sodium Chloride 1,000 ml @ 75 mls/hr [id number] 02/03/18 10:46 02/04/18 11:37 DC 02/03/18 23:55 75 MLS/HR Prochlorperazine Edisylate (Compazine) 5 mg PACU PRN PRN 02/04/18 07:00 02/05/18 06:59 DC Propofol 0 ml @ As Directed STK-MED ONCE 02/04/18 13:50 02/04/18 13:51 DC Ringer's Solution 1,000 ml @ 75 mls/hr [id number] 02/05/18 10:00 02/06/18 13:12 DC 02/05/18 09:52 75 MLS/HR Rocuronium Donaldson (Zemuron) 50 mg STK-MED ONCE 02/03/18 08:09 02/03/18 08:10 DC Sodium Chloride 1,000 ml @ 100 mls/hr Q10H 02/04/18 12:00 02/06/18 13:12 DC 02/05/18 21:05 100 MLS/HR Sodium Chloride (Normal Saline Flush) 3 ml QSHIFT PRN 02/03/18 11:00 Lab Laboratory Tests Test 02/07/18 17:00 02/08/18 05:15 02/08/18 07:45 O2 Saturation 95 % (92-99) 92 % (92-99) Arterial Blood pH 7.33 (7.35-7.45) 7.29 (7.35-7.45) Arterial Blood pCO2 at Patient Temp 43 mmHg (35-46) 48 mmHg (35-46) Arterial Blood pO2 at Patient Temp 77 mmHg (65-108) 68 mmHg (65-108) Arterial Blood HCO3 22 mmol/L (21-28) 22 mmol/L (21-28) Arterial Blood Base Excess -4 mmol/L (-3-3) -4 mmol/L (-3-3) FiO2 40 40 White Blood Count 12.1 x10^3/uL (4.0-11.0) Red Blood Count 2.96 x10^6/uL (4.30-5.70) Hemoglobin 9.4 g/dL (13.0-17.5) Hematocrit 28.9 % (39.0-53.0) Mean Corpuscular Volume 98 fL (79-100) Mean Corpuscular Hemoglobin 32 pg (25-35) Mean Corpuscular Hemoglobin Concent 33 g/dL (31-37) Red Cell Distribution Width 15.2 % (11.5-14.5) Platelet Count 123 x10^3/uL (140-400) Neutrophils (%) (Auto) 85 % (31-73) Lymphocytes (%) (Auto) 4 % (24-48) Monocytes (%) (Auto) 12 % (0-9) Eosinophils (%) (Auto) 0 % (0-3) Basophils (%) (Auto) 0 % (0-3) Neutrophils # (Auto) 10.2 x10^3uL (1.8-7.7) Lymphocytes # (Auto) 0.4 x10^3/uL (1.0-4.8) Monocytes # (Auto) 1.4 x10^3/uL (0.0-1.1) Eosinophils # (Auto) 0.0 x10^3/uL (0.0-0.7) Basophils # (Auto) 0.0 x10^3/uL (0.0-0.2) Sodium Level 145 mmol/L (136-145) Potassium Level 5.2 mmol/L (3.5-5.1) Chloride Level 112 mmol/L (98-107) Carbon Dioxide Level 27 mmol/L (21-32) Anion Gap 6 (6-14) Blood Urea Nitrogen 69 mg/dL (8-26) Creatinine 2.0 mg/dL (0.7-1.3) Estimated GFR (Cockcroft-Gault) 32.6 Glucose Level 101 mg/dL (70-99) Calcium Level 11.0 mg/dL (8.5-10.1) Phosphorus Level 2.9 mg/dL (2.6-4.7) Magnesium Level 2.0 mg/dL (1.8-2.4) Albumin 2.2 g/dL (3.4-5.0) Results All relevant outside records, renal labs, imaging studies, telemetry/EKG's were reviewed. KIERSTEN BRODERICK MD Feb 08, 2018 09:20
--- NOTE | 2018-02-08 09:57 | PDOC ---
SURGICAL PROGRESS NOTE Subjective resting received haldol last night did not wake up during exam Vital Signs Vital Signs Date Time Temp Pulse Resp B/P (MAP) Pulse Ox O2 Delivery O2 Flow Rate FiO2 02/08/18 07:45 94 Nasal Cannula 5.0 02/08/18 06:00 80 28 137/60 (85) 02/08/18 04:00 99.9 99.9 I&O Intake and Output 02/08/18 07:00 Output Total 1160 ml Balance -1160 ml Output Urine Total 1160 ml General: Cooperative, No acute distress, Other (sedated ) Abdomen: Soft, No tenderness Labs Laboratory Tests Test 02/06/18 11:10 02/07/18 02:38 02/07/18 17:00 02/08/18 05:15 O2 Saturation 84 % (92-99) 90 % (92-99) 95 % (92-99) Arterial Blood pH 7.31 (7.35-7.45) 7.25 (7.35-7.45) 7.33 (7.35-7.45) Arterial Blood pCO2 at Patient Temp 49 mmHg (35-46) 49 mmHg (35-46) 43 mmHg (35-46) Arterial Blood pO2 at Patient Temp 51 mmHg (65-108) 66 mmHg (65-108) 77 mmHg (65-108) Arterial Blood HCO3 24 mmol/L (21-28) 21 mmol/L (21-28) 22 mmol/L (21-28) Arterial Blood Base Excess -2 mmol/L (-3-3) -6 mmol/L (-3-3) -4 mmol/L (-3-3) FiO2 2 lpm nc 50 40 White Blood Count 12.1 x10^3/uL (4.0-11.0) Red Blood Count 2.96 x10^6/uL (4.30-5.70) Hemoglobin 9.4 g/dL (13.0-17.5) Hematocrit 28.9 % (39.0-53.0) Mean Corpuscular Volume 98 fL (79-100) Mean Corpuscular Hemoglobin 32 pg (25-35) Mean Corpuscular Hemoglobin Concent 33 g/dL (31-37) Red Cell Distribution Width 15.2 % (11.5-14.5) Platelet Count 123 x10^3/uL (140-400) Neutrophils (%) (Auto) 85 % (31-73) Lymphocytes (%) (Auto) 4 % (24-48) Monocytes (%) (Auto) 12 % (0-9) Eosinophils (%) (Auto) 0 % (0-3) Basophils (%) (Auto) 0 % (0-3) Neutrophils # (Auto) 10.2 x10^3uL (1.8-7.7) Lymphocytes # (Auto) 0.4 x10^3/uL (1.0-4.8) Monocytes # (Auto) 1.4 x10^3/uL (0.0-1.1) Eosinophils # (Auto) 0.0 x10^3/uL (0.0-0.7) Basophils # (Auto) 0.0 x10^3/uL (0.0-0.2) Sodium Level 145 mmol/L (136-145) Potassium Level 5.2 mmol/L (3.5-5.1) Chloride Level 112 mmol/L (98-107) Carbon Dioxide Level 27 mmol/L (21-32) Anion Gap 6 (6-14) Blood Urea Nitrogen 69 mg/dL (8-26) Creatinine 2.0 mg/dL (0.7-1.3) Estimated GFR (Cockcroft-Gault) 32.6 Glucose Level 101 mg/dL (70-99) Calcium Level 11.0 mg/dL (8.5-10.1) Phosphorus Level 2.9 mg/dL (2.6-4.7) Magnesium Level 2.0 mg/dL (1.8-2.4) Albumin 2.2 g/dL (3.4-5.0) Test 02/08/18 07:45 O2 Saturation 92 % (92-99) Arterial Blood pH 7.29 (7.35-7.45) Arterial Blood pCO2 at Patient Temp 48 mmHg (35-46) Arterial Blood pO2 at Patient Temp 68 mmHg (65-108) Arterial Blood HCO3 22 mmol/L (21-28) Arterial Blood Base Excess -4 mmol/L (-3-3) FiO2 40 Laboratory Tests Test 02/07/18 17:00 02/08/18 05:15 02/08/18 07:45 O2 Saturation 95 % (92-99) 92 % (92-99) Arterial Blood pH 7.33 (7.35-7.45) 7.29 (7.35-7.45) Arterial Blood pCO2 at Patient Temp 43 mmHg (35-46) 48 mmHg (35-46) Arterial Blood pO2 at Patient Temp 77 mmHg (65-108) 68 mmHg (65-108) Arterial Blood HCO3 22 mmol/L (21-28) 22 mmol/L (21-28) Arterial Blood Base Excess -4 mmol/L (-3-3) -4 mmol/L (-3-3) FiO2 40 40 White Blood Count 12.1 x10^3/uL (4.0-11.0) Red Blood Count 2.96 x10^6/uL (4.30-5.70) Hemoglobin 9.4 g/dL (13.0-17.5) Hematocrit 28.9 % (39.0-53.0) Mean Corpuscular Volume 98 fL (79-100) Mean Corpuscular Hemoglobin 32 pg (25-35) Mean Corpuscular Hemoglobin Concent 33 g/dL (31-37) Red Cell Distribution Width 15.2 % (11.5-14.5) Platelet Count 123 x10^3/uL (140-400) Neutrophils (%) (Auto) 85 % (31-73) Lymphocytes (%) (Auto) 4 % (24-48) Monocytes (%) (Auto) 12 % (0-9) Eosinophils (%) (Auto) 0 % (0-3) Basophils (%) (Auto) 0 % (0-3) Neutrophils # (Auto) 10.2 x10^3uL (1.8-7.7) Lymphocytes # (Auto) 0.4 x10^3/uL (1.0-4.8) Monocytes # (Auto) 1.4 x10^3/uL (0.0-1.1) Eosinophils # (Auto) 0.0 x10^3/uL (0.0-0.7) Basophils # (Auto) 0.0 x10^3/uL (0.0-0.2) Sodium Level 145 mmol/L (136-145) Potassium Level 5.2 mmol/L (3.5-5.1) Chloride Level 112 mmol/L (98-107) Carbon Dioxide Level 27 mmol/L (21-32) Anion Gap 6 (6-14) Blood Urea Nitrogen 69 mg/dL (8-26) Creatinine 2.0 mg/dL (0.7-1.3) Estimated GFR (Cockcroft-Gault) 32.6 Glucose Level 101 mg/dL (70-99) Calcium Level 11.0 mg/dL (8.5-10.1) Phosphorus Level 2.9 mg/dL (2.6-4.7) Magnesium Level 2.0 mg/dL (1.8-2.4) Albumin 2.2 g/dL (3.4-5.0) Assessment/Plan s/p vilma supportive care YOLA GROVE APRN Feb 08, 2018 09:57
--- NOTE | 2018-02-08 10:08 | PATHOLOGY ---
[facility] Accession Number: [id number] . 01 Material submitted: . GALLBLADDER AND CONTENTS . 01 Clinical history: . Cholelithiasis. . 02 Diagnosis: Gallbladder, cholecystectomy: - Chronic cholecystitis. - Cholelithiasis. (SK:[facility]; 02/05/2018) QMS/02/05/2018 . 02 Electronically signed: . Juan Ramon Shoemaker MD, Pathologist NPI- [id number] . 01 Gross description: . Received in formalin labeled "Gerardo Quintero, gallbladder and contents" is an intact cholecystectomy specimen measuring 10.3 x 3.8 x 2.3 cm. The serosa is pink-jane and submitted and the specimen is opened to reveal dark green velvety mucosa. There is a green-black ovoid calculus present in the fundus which measures 3.6 x 2.8 x 1.7 cm. No polyps or masses are identified. Home Health Caregiver sections of the fundus and body as well as the cystic duct margin are submitted in cassette A1. ([facility] [place]04/[place]) SYC/SYC . 02 Pathologist provided ICD-10: K80.10 . 02 CPT . 427695 Performed at: 01 [facility] [address], [place] [id number] MD Kumar Curran MD Phone: [phone] Performed at: 02 [facility] [address] [id number] MD Zachariah Garcia MD Phone: [phone]
[2018-02-08] MEDS: IV NORMAL SALINE 1000ML BAG 1,000 ML IV SCH ×2 (10:14→18:37)
[2018-02-08] MEDS ORDERED: FUROSEMIDE 40 MG/4 ML VIAL. IVP ONE (11:30)
--- NOTE | 2018-02-08 12:06 | PDOC ---
PULMONARY PROGRESS NOTES Subjective CONFUSED, NO SOA Vitals Vital Signs Date Time Temp Pulse Resp B/P (MAP) Pulse Ox O2 Delivery O2 Flow Rate FiO2 02/08/18 10:00 82 24 104/57 (73) 93 Nasal Cannula 5.0 02/08/18 08:00 99.5 99.5 General: No acute distress Lungs: Clear Cardiovascular: S1, S2 Abdomen: Soft, Non-tender, Other (DISTENDED) Extremities: No Edema Skin: Warm Labs Laboratory Tests Test 02/07/18 02:38 02/07/18 17:00 02/08/18 05:15 02/08/18 07:45 O2 Saturation 90 % (92-99) 95 % (92-99) 92 % (92-99) Arterial Blood pH 7.25 (7.35-7.45) 7.33 (7.35-7.45) 7.29 (7.35-7.45) Arterial Blood pCO2 at Patient Temp 49 mmHg (35-46) 43 mmHg (35-46) 48 mmHg (35-46) Arterial Blood pO2 at Patient Temp 66 mmHg (65-108) 77 mmHg (65-108) 68 mmHg (65-108) Arterial Blood HCO3 21 mmol/L (21-28) 22 mmol/L (21-28) 22 mmol/L (21-28) Arterial Blood Base Excess -6 mmol/L (-3-3) -4 mmol/L (-3-3) -4 mmol/L (-3-3) FiO2 50 40 40 White Blood Count 12.1 x10^3/uL (4.0-11.0) Red Blood Count 2.96 x10^6/uL (4.30-5.70) Hemoglobin 9.4 g/dL (13.0-17.5) Hematocrit 28.9 % (39.0-53.0) Mean Corpuscular Volume 98 fL (79-100) Mean Corpuscular Hemoglobin 32 pg (25-35) Mean Corpuscular Hemoglobin Concent 33 g/dL (31-37) Red Cell Distribution Width 15.2 % (11.5-14.5) Platelet Count 123 x10^3/uL (140-400) Neutrophils (%) (Auto) 85 % (31-73) Lymphocytes (%) (Auto) 4 % (24-48) Monocytes (%) (Auto) 12 % (0-9) Eosinophils (%) (Auto) 0 % (0-3) Basophils (%) (Auto) 0 % (0-3) Neutrophils # (Auto) 10.2 x10^3uL (1.8-7.7) Lymphocytes # (Auto) 0.4 x10^3/uL (1.0-4.8) Monocytes # (Auto) 1.4 x10^3/uL (0.0-1.1) Eosinophils # (Auto) 0.0 x10^3/uL (0.0-0.7) Basophils # (Auto) 0.0 x10^3/uL (0.0-0.2) Sodium Level 145 mmol/L (136-145) Potassium Level 5.2 mmol/L (3.5-5.1) Chloride Level 112 mmol/L (98-107) Carbon Dioxide Level 27 mmol/L (21-32) Anion Gap 6 (6-14) Blood Urea Nitrogen 69 mg/dL (8-26) Creatinine 2.0 mg/dL (0.7-1.3) Estimated GFR (Cockcroft-Gault) 32.6 Glucose Level 101 mg/dL (70-99) Calcium Level 11.0 mg/dL (8.5-10.1) Phosphorus Level 2.9 mg/dL (2.6-4.7) Magnesium Level 2.0 mg/dL (1.8-2.4) Albumin 2.2 g/dL (3.4-5.0) Laboratory Tests Test 02/07/18 17:00 02/08/18 05:15 02/08/18 07:45 O2 Saturation 95 % (92-99) 92 % (92-99) Arterial Blood pH 7.33 (7.35-7.45) 7.29 (7.35-7.45) Arterial Blood pCO2 at Patient Temp 43 mmHg (35-46) 48 mmHg (35-46) Arterial Blood pO2 at Patient Temp 77 mmHg (65-108) 68 mmHg (65-108) Arterial Blood HCO3 22 mmol/L (21-28) 22 mmol/L (21-28) Arterial Blood Base Excess -4 mmol/L (-3-3) -4 mmol/L (-3-3) FiO2 40 40 White Blood Count 12.1 x10^3/uL (4.0-11.0) Red Blood Count 2.96 x10^6/uL (4.30-5.70) Hemoglobin 9.4 g/dL (13.0-17.5) Hematocrit 28.9 % (39.0-53.0) Mean Corpuscular Volume 98 fL (79-100) Mean Corpuscular Hemoglobin 32 pg (25-35) Mean Corpuscular Hemoglobin Concent 33 g/dL (31-37) Red Cell Distribution Width 15.2 % (11.5-14.5) Platelet Count 123 x10^3/uL (140-400) Neutrophils (%) (Auto) 85 % (31-73) Lymphocytes (%) (Auto) 4 % (24-48) Monocytes (%) (Auto) 12 % (0-9) Eosinophils (%) (Auto) 0 % (0-3) Basophils (%) (Auto) 0 % (0-3) Neutrophils # (Auto) 10.2 x10^3uL (1.8-7.7) Lymphocytes # (Auto) 0.4 x10^3/uL (1.0-4.8) Monocytes # (Auto) 1.4 x10^3/uL (0.0-1.1) Eosinophils # (Auto) 0.0 x10^3/uL (0.0-0.7) Basophils # (Auto) 0.0 x10^3/uL (0.0-0.2) Sodium Level 145 mmol/L (136-145) Potassium Level 5.2 mmol/L (3.5-5.1) Chloride Level 112 mmol/L (98-107) Carbon Dioxide Level 27 mmol/L (21-32) Anion Gap 6 (6-14) Blood Urea Nitrogen 69 mg/dL (8-26) Creatinine 2.0 mg/dL (0.7-1.3) Estimated GFR (Cockcroft-Gault) 32.6 Glucose Level 101 mg/dL (70-99) Calcium Level 11.0 mg/dL (8.5-10.1) Phosphorus Level 2.9 mg/dL (2.6-4.7) Magnesium Level 2.0 mg/dL (1.8-2.4) Albumin 2.2 g/dL (3.4-5.0) Medications Active Scripts Medications Dose Route/Sig Max Daily Dose Days Date Category Ferrous Sulfate 325 Mg Tablet 1 Tab PO DAILY 01/28/18 Reported Super B Complex-Vitamin C (B Complex With Vitamin C) 1 Each Tablet 1 Each PO 12/04/17 Reported Warfarin Sodium 5 Mg Tablet 7.5 Mg PO QTUTHSA 06/10/17 Reported Amiodarone Hcl 200 Mg Tablet 100 Mg PO DAILY 06/10/17 Reported Furosemide 20 Mg Tablet 10 Mg PO QMWF 06/10/17 Reported Metoprolol Succinate ( Xl ) (Metoprolol Succinate) 25 Mg Tab.er.24h 1 Tab PO QPM 11/13/16 Reported Calcitriol 0.25 Mcg Capsule 0.25 Mcg PO QM-W-F 05/24/16 Reported Warfarin Sodium 5 Mg Tablet 5 Mg PO QMWF 05/24/16 Reported Loratadine 10 Mg Tablet 10 Mg PO QHS 10/16/14 Reported Tamsulosin Hcl 0.4 Mg Cap.er.24h 0.4 Mg PO QHS 10/16/14 Reported Atorvastatin Calcium 10 Mg Tablet 10 Mg PO HS 10/16/14 Reported Duoneb 0.5-3(2.5) Mg/3 Ml (Albuterol/Ipratropium) 3 Ml Ampul.neb 3 Ml IH TID PRN 07/24/14 Reported Flonase (Fluticasone Propionate) 16 Gm [place].susp 2 [place] NS BID 01/06/14 Reported Comments CXR REVIEWED Low lung volumes and technique accentuates heart size and pulmonary vascularity. Mild cardiomegaly. Left-sided cardiac pacer is identified. Mild left lung base airspace opacities likely atelectasis or infiltrate. Mild bibasilar lung infiltrates or atelectasis similar to prior exam. Impression . IMPRESSION: 1. Acute/Chronic resp failure, expected status post laparoscopic cholecystectomy. 02/03 2. Chronic obstructive pulmonary disease of the chronic bronchitic type. 3. Chronic atrial fibrillation. 4. Obstructive sleep apnea. 5. Common Bile duct stone S/P ERCP 02/05 6. JAYDON/CKD 7. 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 Confusion, ? sepsis, check lactic acid level 02/05 ERCP with sphincterotomy/stone extraction Meds MAC/GOETT Pre-op dx jaundice/abnl IOC/choledocholithiasis Post-op dx choledocholithiasis s/p sphincterotomy/stone extraction large khalida-ampullary diverticulum Plan serial labs monitor for complications possibly advance diet in am if no adverse events Plan . ABG NOTED MOSTLY A METABOLIC ACIDOSIS. CHECK LACTIC ACID LEVEL. FOLOW RENAL REC AMP OF BICARB ABX CONTINUE PRN BIPAP CONTINUE POST OP CARE NO SIG HYPOXIA PRN HALDOL/ AVOID ATIVAN D/W WITH RN CCT 30 MIN ALIYAH CALLE MD Feb 08, 2018 12:06
[2018-02-08] MEDS: AMINO AC 3%/ELECTROLYTE/GLYCER 1,000 ML IV SCH (12:07)
[2018-02-08] MEDS ORDERED: SODIUM BICARB ADULT 8.4% 50 MEQ/50 ML DISP.SYRIN. IV ONE (12:30)
--- NOTE | 2018-02-08 12:47 | PDOC ---
Objective: Objective: Per RN - follows commands but struggles to communicate - NPO on PPN. Vital Signs: Vital Signs Date Time Temp Pulse Resp B/P (MAP) Pulse Ox O2 Delivery O2 Flow Rate FiO2 02/08/18 12:04 95 Nasal Cannula 5.0 02/08/18 10:00 82 24 104/57 (73) 02/08/18 08:00 99.5 99.5 Labs: Laboratory Tests Test 02/07/18 17:00 02/08/18 05:15 02/08/18 07:45 02/08/18 12:15 O2 Saturation 95 % 92 % Arterial Blood pH 7.33 7.29 Arterial Blood pCO2 at Patient Temp 43 mmHg 48 mmHg Arterial Blood pO2 at Patient Temp 77 mmHg 68 mmHg Arterial Blood HCO3 22 mmol/L 22 mmol/L Arterial Blood Base Excess -4 mmol/L -4 mmol/L FiO2 40 40 White Blood Count 12.1 x10^3/uL Red Blood Count 2.96 x10^6/uL Hemoglobin 9.4 g/dL Hematocrit 28.9 % Mean Corpuscular Volume 98 fL Mean Corpuscular Hemoglobin 32 pg Mean Corpuscular Hemoglobin Concent 33 g/dL Red Cell Distribution Width 15.2 % Platelet Count 123 x10^3/uL Neutrophils (%) (Auto) 85 % Lymphocytes (%) (Auto) 4 % Monocytes (%) (Auto) 12 % Eosinophils (%) (Auto) 0 % Basophils (%) (Auto) 0 % Neutrophils # (Auto) 10.2 x10^3uL Lymphocytes # (Auto) 0.4 x10^3/uL Monocytes # (Auto) 1.4 x10^3/uL Eosinophils # (Auto) 0.0 x10^3/uL Basophils # (Auto) 0.0 x10^3/uL Sodium Level 145 mmol/L Potassium Level 5.2 mmol/L Chloride Level 112 mmol/L Carbon Dioxide Level 27 mmol/L Anion Gap 6 Blood Urea Nitrogen 69 mg/dL Creatinine 2.0 mg/dL Estimated GFR (Cockcroft-Gault) 32.6 Glucose Level 101 mg/dL Calcium Level 11.0 mg/dL Phosphorus Level 2.9 mg/dL Magnesium Level 2.0 mg/dL Albumin 2.2 g/dL Lactic Acid Level 0.9 mmol/L PE: GEN: NAD, up to chair LUNGS: NC HEART: RRR ABD: winces w/ palpation, soft NEURO/PSYCH: awake, doesn't speak A/P: Confusion Resp failure S/p cholecystectomy Choledocholithiasis s/p ERCP -- Note normal lactic acid. Supportive care. BI WILCOX Feb 08, 2018 12:47
[2018-02-08 16:07] LABS: CALCIUM 10.7 mg/dL (8.5-10.1); GFR 32.6; POTASSIUM 4.8 mmol/L (3.5-5.1)
--- NOTE | 2018-02-08 16:27 | PDOC ---
CARDIOLOGY PROGRESS NOTE SUBJECTIVE: Continues to be confused. No chest pain. No arrhythmias. OBJECTIVE: Vital SIgns: Vital Signs Date Time Temp Pulse Resp B/P (MAP) Pulse Ox O2 Delivery O2 Flow Rate FiO2 02/08/18 16:00 Nasal Cannula 5.0 02/08/18 15:49 94 02/08/18 15:00 94 18 145/73 (97) 02/08/18 12:00 98.8 98.8 I & O -1L Objective: A/O to self. Not place and time. Normal heart tones. Clr lungs Neck veins flat. No edema. Mild abd TTP DIAGNOSTIC TESTING: K elevated. CKD continues ASSESSMENT: 1. PAF s/p Pacemaker (Biotronik) - remote 2. Acute vilma s/p surgery 3. ICU psychosis 4. CKD 5. HTN PLAN: 1 Supportive care from CV standpoint. Ok to use lasix for hyperkalemia but he appears euvolemic and does not need aggressive diuresis. Will follow along peripherally. Thanks JOVANNI PRO MD Feb 08, 2018 16:27
[2018-02-08] MEDS: hydrALAZINE 20 MG/ML VIAL. IVP PRN (18:37)
[2018-02-08] MEDS ORDERED: IPRATRPIUM/ALBUTEROL 0.5/2.5MG 3 ML NEBU. ONE (19:39)
[2018-02-08] MEDS: MORPHINE SULFATE 10 MG/ML VIAL. IV PRN (20:17)
[2018-02-08] MEDS: LORazepam 0.5 MG TABLET PO PRN (20:17)
[2018-02-08] MEDS: LACTOBACILLUS RHAMNOSUS GG 1 CAPSULE. PO SCH (20:18)
[2018-02-09] VITALS (23 sets, daily range): BP systolic 115–180; BP diastolic 53–98
[2018-02-09] MEDS: AMINO AC 3%/ELECTROLYTE/GLYCER 1,000 ML IV SCH ×2 (01:13→15:28)
[2018-02-09] MEDS: IV NORMAL SALINE 1000ML BAG 1,000 ML IV SCH ×2 (04:39→09:42)
[2018-02-09 05:01] LABS: ALBUMIN 1.9 g/dL (3.4-5.0); ALBUMIN/GLOBULIN RATIO 0.5 (1.0-1.7); CALCIUM 10.3 mg/dL (8.5-10.1); CREATININE 1.8 mg/dL (0.7-1.3); GFR 36.9; PHOSPHORUS 2.8 mg/dL (2.6-4.7); POTASSIUM 4.7 mmol/L (3.5-5.1); TOTAL BILIRUBIN 1.4 mg/dL (0.2-1.0); TOTAL PROTEIN 5.4 g/dL (6.4-8.2)
[2018-02-09] MEDS: IPRATRPIUM/ALBUTEROL 0.5/2.5MG 3 ML NEBU. NEB SCH ×4 (07:18→19:32)
[2018-02-09] MEDS: DOCUSATE SODIUM 100 MG CAPSULE. PO SCH ×2 (07:53→20:52)
[2018-02-09] MEDS: CIPROFLOXACIN 400MG PREMIX 200 ML IV SCH (08:24)
[2018-02-09] MEDS: LACTOBACILLUS RHAMNOSUS GG 1 CAPSULE. PO SCH ×2 (08:28→20:52)
--- NOTE | 2018-02-09 08:57 | PDOC ---
Subjective: Subjective: says in and out of "psychosis" - knows her, knows his address, but then will wake up and say "the tv is coming at him." Objective: Objective: D/w RN - still out of it, has been giving ice chips, MARKETING PROPOSAL COORDINATOR eval ordered last evening. Vital Signs: Vital Signs Date Time Temp Pulse Resp B/P (MAP) Pulse Ox O2 Delivery O2 Flow Rate FiO2 02/09/18 08:00 Nasal Cannula 4.0 02/09/18 07:18 100 02/09/18 07:00 92 20 179/89 (119) 02/09/18 04:00 98.9 98.9 Labs: Laboratory Tests Test 02/08/18 12:15 02/08/18 15:25 02/09/18 04:15 Lactic Acid Level 0.9 mmol/L Sodium Level 146 mmol/L 148 mmol/L Potassium Level 4.8 mmol/L 4.7 mmol/L Chloride Level 112 mmol/L 114 mmol/L Carbon Dioxide Level 26 mmol/L 28 mmol/L Anion Gap 8 6 Blood Urea Nitrogen 73 mg/dL 72 mg/dL Creatinine 2.0 mg/dL 1.8 mg/dL Estimated GFR (Cockcroft-Gault) 32.6 36.9 Glucose Level 120 mg/dL 115 mg/dL Calcium Level 10.7 mg/dL 10.3 mg/dL BUN/Creatinine Ratio 40 Phosphorus Level 2.8 mg/dL Magnesium Level 2.0 mg/dL Total Bilirubin 1.4 mg/dL Aspartate Amino Transf (AST/SGOT) 19 U/L Alanine Aminotransferase (ALT/SGPT) 16 U/L Alkaline Phosphatase 64 U/L Total Protein 5.4 g/dL Albumin 1.9 g/dL Albumin/Globulin Ratio 0.5 PE: GEN: NAD LUNGS: diminished, NC HEART: RRR ABD: BS+, soft NEURO/PSYCH: follows commands A/P: S/p ERCP / - bili improved (1.4) Confusion - ongoing Resp failure, JAYDON - better Hypernatremia -- Plans for MARKETING PROPOSAL COORDINATOR eval. BI WILCOX Feb 09, 2018 08:57
--- NOTE | 2018-02-09 09:05 | PDOC ---
SUBJECTIVE ROS On O2 [address] , still confused (was better last evening) As per he is bringing up a lot of brownish secretions OBJECTIVE Vital Signs Vital Signs Date Time Temp Pulse Resp B/P (MAP) Pulse Ox O2 Delivery O2 Flow Rate FiO2 02/09/18 08:00 99 25 178/77 (110) 90 Nasal Cannula 4.0 02/09/18 04:00 98.9 98.9 I & 0 Intake and Output 02/09/18 07:00 Intake Total 3592 ml Output Total 2995 ml Balance 597 ml IV Total 3592 ml Output Urine Total 2995 ml PHYSICAL EXAM Physical Exam GEN: On O2 by NC, Mild Resp distress+ HEENT-On O2 BY pa neck- supple LUNGS: CTAB ant HEART: RRR, no murmurs ABD: s/p GB surgery, obese EXTREMITY: No edema SKIN: No rashes, NEURO/PSYCH: Confused - Rodriguez + DIAGNOSIS/ASSESSMENT Assessment & Plan ARF/ ? ATN : Good UOP Improving Renal function- back to baseline Unlikely that Confusion is due to Uremia Current fluid and E-lyte status does not necessitate emergent need for dialysis. 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 \\ Repeat CxR AMS - ?ICU delirium Consult neurology HTN:Current BP meds as reviewed. See orders for changes. HypoALbuminemia - As per GS /Labor/Excavator On procalAmine DW and RN at bed side CxR- 1. Mild cardiomegaly. 2. Minimal right basilar atelectasis. COMMENT/RELEVANT DATA Meds Current Medications Medications (Trade) Dose Ordered Sig/Patricia Start Time Stop Time Status Last Admin Dose Admin Acetaminophen (Tylenol) 500 mg PRN Q4HRS PRN 8/2/18 22:15 Albuterol Sulfate (Ventolin Neb Soln) 2.5 mg PRN Q2HR PRN 02/03/18 15:00 02/04/18 04:11 2.5 MG Albuterol/ Ipratropium (Duoneb) 3 ml STK-MED ONCE 02/08/18 19:39 02/08/18 19:40 DC Amino Acids/ Glycerin/ Electrolytes 1,000 ml @ 75 mls/hr [id number] 02/08/18 12:00 02/09/18 01:13 75 MLS/HR Bupivacaine HCl/ Epinephrine Bitart (Marcaine-Epi 0.5%-1:[id number]) 50 ml STK-MED ONCE 02/03/18 07:56 02/03/18 08:57 DC 02/03/18 09:49 8 ML Cefazolin Sodium/ Dextrose (Ancef 2gm Premix) 2 gm STK-MED ONCE 02/03/18 07:00 02/04/18 12:31 DC Ciprofloxacin/ Dextrose 200 ml @ 200 mls/hr Q24H 02/07/18 08:00 02/09/18 08:24 200 MLS/HR Darbepoetin Rob (Aranesp) 60 mcg [id number] 02/07/18 21:00 02/07/18 21:30 60 MCG Desflurane (Suprane) 60 ml STK-MED ONCE 02/03/18 08:09 02/03/18 08:10 DC Dexamethasone Sodium Phosphate (Decadron) 20 mg STK-MED ONCE 02/06/18 12:00 02/09/18 06:52 DC Dextrose (Dextrose 50%-Water Syringe) 12.5 gm PRN Q15MIN PRN 02/03/18 11:00 Diphenhydramine HCl (Benadryl) 25 mg PRN Q6HRS PRN 02/03/18 11:00 02/07/18 14:34 25 MG Docusate Sodium (Colace) 100 mg BID 02/03/18 11:00 02/08/18 20:18 100 MG Enoxaparin Sodium (Lovenox 40mg Syringe) 40 mg Q24H 02/04/18 09:00 02/04/18 09:00 DC Ephedrine Sulfate (ePHEDrine PF IN SALINE SYRINGE) 50 mg STK-MED ONCE 02/03/18 08:15 02/03/18 08:16 DC Famotidine (Pepcid Vial) 20 mg STK-MED ONCE 02/04/18 13:50 02/04/18 13:51 DC Fentanyl Citrate (Fentanyl 2ml Vial) 100 mcg STK-MED ONCE 02/05/18 10:33 02/05/18 10:34 DC Furosemide (Lasix) 40 mg 1X ONCE 02/08/18 11:30 02/08/18 11:31 DC 02/08/18 12:07 40 MG Glycopyrrolate (Robinul) 1 mg STK-MED ONCE 02/06/18 12:00 02/09/18 06:52 DC Haloperidol Lactate (Haldol Inj) 5 mg PRN Q6HRS PRN 02/05/18 12:30 02/08/18 03:45 5 MG Hydralazine HCl (Apresoline Inj) 10 mg PRN Q4HRS PRN 02/04/18 12:15 02/08/18 18:37 10 MG Iohexol (Omnipaque 300 Mg/ml) 100 ml STK-MED ONCE 02/05/18 11:27 02/05/18 11:29 DC 02/05/18 11:27 30 ML Ketorolac Tromethamine (Toradol For Or Only) 30 mg STK-MED ONCE 02/03/18 08:09 02/03/18 08:10 DC Lactobacillus Rhamnosus (Culturelle) 1 cap BID 02/08/18 21:00 02/08/18 20:18 1 CAP Lidocaine HCl (Lidocaine HCl 2% Abboject) 100 mg STK-MED ONCE 02/06/18 12:00 02/09/18 06:52 DC Lidocaine HCl (Lidocaine Pf 2% Vial) 5 ml STK-MED ONCE 02/04/18 13:50 02/04/18 13:51 DC Lidocaine HCl (Xylocaine-Mpf 1% Vial) 2 ml PRN 1X PRN 02/04/18 07:00 02/05/18 06:59 DC Lorazepam (Ativan) 0.5 mg PRN Q6HRS PRN 02/04/18 20:45 02/08/18 20:20 0.5 MG Magnesium Sulfate 50 ml @ 25 mls/hr PRN DAILY PRN 02/07/18 09:00 Metoclopramide HCl (Reglan Vial) 5 mg PRN Q6HRS PRN 02/04/18 17:30 02/05/18 13:05 5 MG Metronidazole 100 ml @ 100 mls/hr Q12HR 02/04/18 17:30 02/09/18 08:24 100 MLS/HR Morphine Sulfate (Morphine Sulfate) 1 mg PRN Q10MIN PRN 02/04/18 07:00 02/05/18 06:59 DC Neostigmine Methylsulfate (Neostigmine Methylsulfate) 5 mg STK-MED ONCE 02/06/18 12:00 02/09/18 06:52 DC Ondansetron HCl (Zofran) 4 mg STK-MED ONCE 02/05/18 11:01 02/05/18 11:03 DC Oxycodone/ Acetaminophen (Percocet 5/325) 1 tab 1X PACU PRN 02/03/18 12:15 02/03/18 20:00 DC 02/03/18 12:20 1 TAB Phenylephrine HCl (PHENYLEPHRINE in 0.9% NACL PF) 2 mg STK-MED ONCE 02/06/18 12:00 02/09/18 06:52 DC Potassium Chloride/Sodium Chloride 1,000 ml @ 75 mls/hr [id number] 02/03/18 10:46 02/04/18 11:37 DC 02/03/18 23:55 75 MLS/HR Prochlorperazine Edisylate (Compazine) 5 mg PACU PRN PRN 02/04/18 07:00 02/05/18 06:59 DC Propofol (Diprivan) 200 mg STK-MED ONCE 02/06/18 12:00 02/09/18 06:52 DC Ringer's Solution 1,000 ml @ 75 mls/hr [id number] 02/05/18 10:00 02/06/18 13:12 DC 02/05/18 09:52 75 MLS/HR Rocuronium [place] (Zemuron) 50 mg STK-MED ONCE 02/03/18 08:09 02/03/18 08:10 DC Sodium Bicarbonate (Sodium Bicarb Adult 8.4% Syr) 50 meq 1X ONCE 02/08/18 12:30 02/08/18 12:31 DC 02/08/18 12:08 50 MEQ Sodium Chloride 1,000 ml @ 125 mls/hr Q8H 02/08/18 10:00 02/09/18 04:39 125 MLS/HR Sodium Chloride (Normal Saline Flush) 3 ml QSHIFT PRN 02/03/18 11:00 Lab Laboratory Tests Test 02/08/18 12:15 02/08/18 15:25 02/09/18 04:15 Lactic Acid Level 0.9 mmol/L (0.4-2.0) Sodium Level 146 mmol/L (136-145) 148 mmol/L (136-145) Potassium Level 4.8 mmol/L (3.5-5.1) 4.7 mmol/L (3.5-5.1) Chloride Level 112 mmol/L (98-107) 114 mmol/L (98-107) Carbon Dioxide Level 26 mmol/L (21-32) 28 mmol/L (21-32) Anion Gap 8 (6-14) 6 (6-14) Blood Urea Nitrogen 73 mg/dL (8-26) 72 mg/dL (8-26) Creatinine 2.0 mg/dL (0.7-1.3) 1.8 mg/dL (0.7-1.3) Estimated GFR (Cockcroft-Gault) 32.6 36.9 Glucose Level 120 mg/dL (70-99) 115 mg/dL (70-99) Calcium Level 10.7 mg/dL (8.5-10.1) 10.3 mg/dL (8.5-10.1) BUN/Creatinine Ratio 40 (6-20) Phosphorus Level 2.8 mg/dL (2.6-4.7) Magnesium Level 2.0 mg/dL (1.8-2.4) Total Bilirubin 1.4 mg/dL (0.2-1.0) Aspartate Amino Transf (AST/SGOT) 19 U/L (15-37) Alanine Aminotransferase (ALT/SGPT) 16 U/L (16-63) Alkaline Phosphatase 64 U/L (46-116) Total Protein 5.4 g/dL (6.4-8.2) Albumin 1.9 g/dL (3.4-5.0) Albumin/Globulin Ratio 0.5 (1.0-1.7) Results All relevant outside records, renal labs, imaging studies, telemetry/EKG's were reviewed. KIERSTEN BRODERICK MD Feb 09, 2018 09:05
--- NOTE | 2018-02-09 09:11 | PDOC ---
SURGICAL PROGRESS NOTE Subjective answers my questions appropriately today easily falls asleep Vital Signs Vital Signs Date Time Temp Pulse Resp B/P (MAP) Pulse Ox O2 Delivery O2 Flow Rate FiO2 02/09/18 09:00 112 26 173/75 (107) 93 Nasal Cannula 4.0 02/09/18 04:00 98.9 98.9 I&O Intake and Output 02/09/18 07:00 Intake Total 3592 ml Output Total 2995 ml Balance 597 ml IV Total 3592 ml Output Urine Total 2995 ml General: Cooperative, No acute distress Abdomen: Soft, No tenderness Labs Laboratory Tests Test 02/07/18 17:00 02/08/18 05:15 02/08/18 07:45 02/08/18 12:15 O2 Saturation 95 % (92-99) 92 % (92-99) Arterial Blood pH 7.33 (7.35-7.45) 7.29 (7.35-7.45) Arterial Blood pCO2 at Patient Temp 43 mmHg (35-46) 48 mmHg (35-46) Arterial Blood pO2 at Patient Temp 77 mmHg (65-108) 68 mmHg (65-108) Arterial Blood HCO3 22 mmol/L (21-28) 22 mmol/L (21-28) Arterial Blood Base Excess -4 mmol/L (-3-3) -4 mmol/L (-3-3) FiO2 40 40 White Blood Count 12.1 x10^3/uL (4.0-11.0) Red Blood Count 2.96 x10^6/uL (4.30-5.70) Hemoglobin 9.4 g/dL (13.0-17.5) Hematocrit 28.9 % (39.0-53.0) Mean Corpuscular Volume 98 fL (79-100) Mean Corpuscular Hemoglobin 32 pg (25-35) Mean Corpuscular Hemoglobin Concent 33 g/dL (31-37) Red Cell Distribution Width 15.2 % (11.5-14.5) Platelet Count 123 x10^3/uL (140-400) Neutrophils (%) (Auto) 85 % (31-73) Lymphocytes (%) (Auto) 4 % (24-48) Monocytes (%) (Auto) 12 % (0-9) Eosinophils (%) (Auto) 0 % (0-3) Basophils (%) (Auto) 0 % (0-3) Neutrophils # (Auto) 10.2 x10^3uL (1.8-7.7) Lymphocytes # (Auto) 0.4 x10^3/uL (1.0-4.8) Monocytes # (Auto) 1.4 x10^3/uL (0.0-1.1) Eosinophils # (Auto) 0.0 x10^3/uL (0.0-0.7) Basophils # (Auto) 0.0 x10^3/uL (0.0-0.2) Sodium Level 145 mmol/L (136-145) Potassium Level 5.2 mmol/L (3.5-5.1) Chloride Level 112 mmol/L (98-107) Carbon Dioxide Level 27 mmol/L (21-32) Anion Gap 6 (6-14) Blood Urea Nitrogen 69 mg/dL (8-26) Creatinine 2.0 mg/dL (0.7-1.3) Estimated GFR (Cockcroft-Gault) 32.6 Glucose Level 101 mg/dL (70-99) Calcium Level 11.0 mg/dL (8.5-10.1) Phosphorus Level 2.9 mg/dL (2.6-4.7) Magnesium Level 2.0 mg/dL (1.8-2.4) Albumin 2.2 g/dL (3.4-5.0) Lactic Acid Level 0.9 mmol/L (0.4-2.0) Test 02/08/18 15:25 02/09/18 04:15 Sodium Level 146 mmol/L (136-145) 148 mmol/L (136-145) Potassium Level 4.8 mmol/L (3.5-5.1) 4.7 mmol/L (3.5-5.1) Chloride Level 112 mmol/L (98-107) 114 mmol/L (98-107) Carbon Dioxide Level 26 mmol/L (21-32) 28 mmol/L (21-32) Anion Gap 8 (6-14) 6 (6-14) Blood Urea Nitrogen 73 mg/dL (8-26) 72 mg/dL (8-26) Creatinine 2.0 mg/dL (0.7-1.3) 1.8 mg/dL (0.7-1.3) Estimated GFR (Cockcroft-Gault) 32.6 36.9 Glucose Level 120 mg/dL (70-99) 115 mg/dL (70-99) Calcium Level 10.7 mg/dL (8.5-10.1) 10.3 mg/dL (8.5-10.1) BUN/Creatinine Ratio 40 (6-20) Phosphorus Level 2.8 mg/dL (2.6-4.7) Magnesium Level 2.0 mg/dL (1.8-2.4) Total Bilirubin 1.4 mg/dL (0.2-1.0) Aspartate Amino Transf (AST/SGOT) 19 U/L (15-37) Alanine Aminotransferase (ALT/SGPT) 16 U/L (16-63) Alkaline Phosphatase 64 U/L (46-116) Total Protein 5.4 g/dL (6.4-8.2) Albumin 1.9 g/dL (3.4-5.0) Albumin/Globulin Ratio 0.5 (1.0-1.7) Laboratory Tests Test 02/08/18 12:15 02/08/18 15:25 02/09/18 04:15 Lactic Acid Level 0.9 mmol/L (0.4-2.0) Sodium Level 146 mmol/L (136-145) 148 mmol/L (136-145) Potassium Level 4.8 mmol/L (3.5-5.1) 4.7 mmol/L (3.5-5.1) Chloride Level 112 mmol/L (98-107) 114 mmol/L (98-107) Carbon Dioxide Level 26 mmol/L (21-32) 28 mmol/L (21-32) Anion Gap 8 (6-14) 6 (6-14) Blood Urea Nitrogen 73 mg/dL (8-26) 72 mg/dL (8-26) Creatinine 2.0 mg/dL (0.7-1.3) 1.8 mg/dL (0.7-1.3) Estimated GFR (Cockcroft-Gault) 32.6 36.9 Glucose Level 120 mg/dL (70-99) 115 mg/dL (70-99) Calcium Level 10.7 mg/dL (8.5-10.1) 10.3 mg/dL (8.5-10.1) BUN/Creatinine Ratio 40 (6-20) Phosphorus Level 2.8 mg/dL (2.6-4.7) Magnesium Level 2.0 mg/dL (1.8-2.4) Total Bilirubin 1.4 mg/dL (0.2-1.0) Aspartate Amino Transf (AST/SGOT) 19 U/L (15-37) Alanine Aminotransferase (ALT/SGPT) 16 U/L (16-63) Alkaline Phosphatase 64 U/L (46-116) Total Protein 5.4 g/dL (6.4-8.2) Albumin 1.9 g/dL (3.4-5.0) Albumin/Globulin Ratio 0.5 (1.0-1.7) Problem List supportive care YOLA GROVE APRN Feb 09, 2018 09:11
[2018-02-09] MEDS: hydrALAZINE 20 MG/ML VIAL. IVP PRN ×2 (09:42→22:31)
[2018-02-09] MEDS: HALOPERIDOL LACTATE 5 MG/ML VIAL. IVP PRN (10:03)
--- NOTE | 2018-02-09 10:55 | RAD ---
Portable chest, 02/09/2018: HISTORY: Congestive heart failure Comparison is made to a study from 02/07/2018. A left-sided transvenous pacemaker remains in place with 2 leads extending into the right heart. The heart is mildly enlarged. There is calcific plaquing of the aorta. The pulmonary vascularity is normal. There appears to be minimal linear atelectasis in the right base. The lungs are otherwise clear. No pleural fluid is seen. IMPRESSION: 1. Mild cardiomegaly. 2. Minimal right basilar atelectasis. Electronically signed by: Corbin Ruelas MD (02/09/2018 10:51 AM) [facility]
--- NOTE | 2018-02-09 11:21 | PDOC ---
PULMONARY PROGRESS NOTES Subjective CONFUSED, Vitals Vital Signs Date Time Temp Pulse Resp B/P (MAP) Pulse Ox O2 Delivery O2 Flow Rate FiO2 02/09/18 10:00 130 34 159/76 (103) 92 Nasal Cannula 4.0 02/09/18 04:00 98.9 98.9 General: No acute distress Lungs: Clear Cardiovascular: S1, S2 Abdomen: Soft, Non-tender, Other (DISTENDED) Extremities: No Edema Skin: Warm Labs Laboratory Tests Test 02/07/18 17:00 02/08/18 05:15 02/08/18 07:45 02/08/18 12:15 O2 Saturation 95 % (92-99) 92 % (92-99) Arterial Blood pH 7.33 (7.35-7.45) 7.29 (7.35-7.45) Arterial Blood pCO2 at Patient Temp 43 mmHg (35-46) 48 mmHg (35-46) Arterial Blood pO2 at Patient Temp 77 mmHg (65-108) 68 mmHg (65-108) Arterial Blood HCO3 22 mmol/L (21-28) 22 mmol/L (21-28) Arterial Blood Base Excess -4 mmol/L (-3-3) -4 mmol/L (-3-3) FiO2 40 40 White Blood Count 12.1 x10^3/uL (4.0-11.0) Red Blood Count 2.96 x10^6/uL (4.30-5.70) Hemoglobin 9.4 g/dL (13.0-17.5) Hematocrit 28.9 % (39.0-53.0) Mean Corpuscular Volume 98 fL (79-100) Mean Corpuscular Hemoglobin 32 pg (25-35) Mean Corpuscular Hemoglobin Concent 33 g/dL (31-37) Red Cell Distribution Width 15.2 % (11.5-14.5) Platelet Count 123 x10^3/uL (140-400) Neutrophils (%) (Auto) 85 % (31-73) Lymphocytes (%) (Auto) 4 % (24-48) Monocytes (%) (Auto) 12 % (0-9) Eosinophils (%) (Auto) 0 % (0-3) Basophils (%) (Auto) 0 % (0-3) Neutrophils # (Auto) 10.2 x10^3uL (1.8-7.7) Lymphocytes # (Auto) 0.4 x10^3/uL (1.0-4.8) Monocytes # (Auto) 1.4 x10^3/uL (0.0-1.1) Eosinophils # (Auto) 0.0 x10^3/uL (0.0-0.7) Basophils # (Auto) 0.0 x10^3/uL (0.0-0.2) Sodium Level 145 mmol/L (136-145) Potassium Level 5.2 mmol/L (3.5-5.1) Chloride Level 112 mmol/L (98-107) Carbon Dioxide Level 27 mmol/L (21-32) Anion Gap 6 (6-14) Blood Urea Nitrogen 69 mg/dL (8-26) Creatinine 2.0 mg/dL (0.7-1.3) Estimated GFR (Cockcroft-Gault) 32.6 Glucose Level 101 mg/dL (70-99) Calcium Level 11.0 mg/dL (8.5-10.1) Phosphorus Level 2.9 mg/dL (2.6-4.7) Magnesium Level 2.0 mg/dL (1.8-2.4) Albumin 2.2 g/dL (3.4-5.0) Lactic Acid Level 0.9 mmol/L (0.4-2.0) Test 02/08/18 15:25 02/09/18 04:15 Sodium Level 146 mmol/L (136-145) 148 mmol/L (136-145) Potassium Level 4.8 mmol/L (3.5-5.1) 4.7 mmol/L (3.5-5.1) Chloride Level 112 mmol/L (98-107) 114 mmol/L (98-107) Carbon Dioxide Level 26 mmol/L (21-32) 28 mmol/L (21-32) Anion Gap 8 (6-14) 6 (6-14) Blood Urea Nitrogen 73 mg/dL (8-26) 72 mg/dL (8-26) Creatinine 2.0 mg/dL (0.7-1.3) 1.8 mg/dL (0.7-1.3) Estimated GFR (Cockcroft-Gault) 32.6 36.9 Glucose Level 120 mg/dL (70-99) 115 mg/dL (70-99) Calcium Level 10.7 mg/dL (8.5-10.1) 10.3 mg/dL (8.5-10.1) BUN/Creatinine Ratio 40 (6-20) Phosphorus Level 2.8 mg/dL (2.6-4.7) Magnesium Level 2.0 mg/dL (1.8-2.4) Total Bilirubin 1.4 mg/dL (0.2-1.0) Aspartate Amino Transf (AST/SGOT) 19 U/L (15-37) Alanine Aminotransferase (ALT/SGPT) 16 U/L (16-63) Alkaline Phosphatase 64 U/L (46-116) Total Protein 5.4 g/dL (6.4-8.2) Albumin 1.9 g/dL (3.4-5.0) Albumin/Globulin Ratio 0.5 (1.0-1.7) Laboratory Tests Test 02/08/18 12:15 02/08/18 15:25 02/09/18 04:15 Lactic Acid Level 0.9 mmol/L (0.4-2.0) Sodium Level 146 mmol/L (136-145) 148 mmol/L (136-145) Potassium Level 4.8 mmol/L (3.5-5.1) 4.7 mmol/L (3.5-5.1) Chloride Level 112 mmol/L (98-107) 114 mmol/L (98-107) Carbon Dioxide Level 26 mmol/L (21-32) 28 mmol/L (21-32) Anion Gap 8 (6-14) 6 (6-14) Blood Urea Nitrogen 73 mg/dL (8-26) 72 mg/dL (8-26) Creatinine 2.0 mg/dL (0.7-1.3) 1.8 mg/dL (0.7-1.3) Estimated GFR (Cockcroft-Gault) 32.6 36.9 Glucose Level 120 mg/dL (70-99) 115 mg/dL (70-99) Calcium Level 10.7 mg/dL (8.5-10.1) 10.3 mg/dL (8.5-10.1) BUN/Creatinine Ratio 40 (6-20) Phosphorus Level 2.8 mg/dL (2.6-4.7) Magnesium Level 2.0 mg/dL (1.8-2.4) Total Bilirubin 1.4 mg/dL (0.2-1.0) Aspartate Amino Transf (AST/SGOT) 19 U/L (15-37) Alanine Aminotransferase (ALT/SGPT) 16 U/L (16-63) Alkaline Phosphatase 64 U/L (46-116) Total Protein 5.4 g/dL (6.4-8.2) Albumin 1.9 g/dL (3.4-5.0) Albumin/Globulin Ratio 0.5 (1.0-1.7) Medications Active Scripts Medications Dose Route/Sig Max Daily Dose Days Date Category Ferrous Sulfate 325 Mg Tablet 1 Tab PO DAILY 01/28/18 Reported Super B Complex-Vitamin C (B Complex With Vitamin C) 1 Each Tablet 1 Each PO 12/04/17 Reported Warfarin Sodium 5 Mg Tablet 7.5 Mg PO QTUTHSA 06/10/17 Reported Amiodarone Hcl 200 Mg Tablet 100 Mg PO DAILY 06/10/17 Reported Furosemide 20 Mg Tablet 10 Mg PO QMWF 06/10/17 Reported Metoprolol Succinate ( Xl ) (Metoprolol Succinate) 25 Mg Tab.er.24h 1 Tab PO QPM 11/13/16 Reported Calcitriol 0.25 Mcg Capsule 0.25 Mcg PO QM-W-F 05/24/16 Reported Warfarin Sodium 5 Mg Tablet 5 Mg PO QMWF 05/24/16 Reported Loratadine 10 Mg Tablet 10 Mg PO QHS 10/16/14 Reported Tamsulosin Hcl 0.4 Mg Cap.er.24h 0.4 Mg PO QHS 10/16/14 Reported Atorvastatin Calcium 10 Mg Tablet 10 Mg PO HS 10/16/14 Reported Duoneb 0.5-3(2.5) Mg/3 Ml (Albuterol/Ipratropium) 3 Ml Ampul.neb 3 Ml IH TID PRN 07/24/14 Reported Flonase (Fluticasone Propionate) 16 Gm [place].susp 2 [place] NS BID 01/06/14 Reported Comments CXR REVIEWED 02/09 ? Right basal atelectasis Impression . IMPRESSION: 1. Acute/Chronic resp failure, expected status post laparoscopic cholecystectomy. 02/03 2. Chronic obstructive pulmonary disease of the chronic bronchitic type. 3. Chronic atrial fibrillation. 4. Obstructive sleep apnea. 5. Common Bile duct stone S/P ERCP 02/05 6. JAYDON/CKD 7. 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 Confusion, no signs of sepsis, normal lactic acid level, probably medication induced 02/05 ERCP with sphincterotomy/stone extraction Meds MAC/GOETT Pre-op dx jaundice/abnl IOC/choledocholithiasis Post-op dx choledocholithiasis s/p sphincterotomy/stone extraction large khalida-ampullary diverticulum Plan serial labs monitor for complications possibly advance diet in am if no adverse events Plan . CONTINUE NASAL CANULA FOLOW RENAL REC AMP OF BICARB given 02/08, IMPROVED MA ABX FOLLOW SPUTUM CULTURE RESULT CONTINUE PRN BIPAP CONTINUE POST OP CARE NO SIG HYPOXIA PRN HALDOL/ AVOID ATIVAN D/W WITH RN D/W ALIYAH CALLE MD Feb 09, 2018 11:21
[2018-02-09] MEDS ORDERED: METOPROLOL TARTRATE 5 MG/5 ML VIAL. IVP PRN (12:45)
--- NOTE | 2018-02-09 17:21 | PDOC2 ---
NEUROLOGY CONSULT Date of Admission Date of Admission DATE: 02/09/18 TIME: 17:12 Reason for Consult Reason for Consult: Altered mental status Referring Physician Referring Physician: Dr. Norwood PCP: Dr. Alba Source Source: Caregiver (), Chart review, Patient History of Present Illness History of Present Illness The patient is a 77-year-old right-handed male admitted for a laparoscopic cholecystectomy on 02/03, requiring ERCP gallstone retrieval on 02/05, who has remained confused since. Patient's says that he is normally not demented and there is no history of stroke, seizure, or head injury. He has been delirious in his sleep-wake cycle is disrupted. He has been getting Haldol and Ativan without much change. There is no prior history of such encephalopathy. He has had a tremor in his legs off and on for several years Past Medical History Cardiovascular: AFIB, CAD, CHF, HTN, Hyperlipidemia, Other (carotid stenosis, peripheral vascular disease) Pulmonary: COPD, Pneumonia, Other (sleep apnea) GI: Constipation, Hemorrhoids, Other (colonic polyps) Heme/Onc: Anemia NOS Psych: Anxiety, Depression Musculoskeletal: Osteoarthritis Renal/: Chronic renal insuff, Benign prostatic enlarg., Other (erectile dysfunction) Dermatology: Basal cell Past Surgical History Past Surgical History: Pacemaker, Cholecystectomy, Cataract Removal, Hernia Repair, Other (rectal fistula repair, right index finger) Family History Family History: Cancer Social History Social History , retired, no alcohol or tobacco Current Medications Current Medications Current Medications Ondansetron HCl (Zofran) 4 mg PRN Q6HRS PRN IV NAUSEA/VOMITING Last administered on 02/04/18at 04:08; Start 02/03/18 at 07:00; Stop 02/04/18 at 06:59; Status DC Fentanyl Citrate (Fentanyl 2ml Vial) 25 mcg PRN Q5MIN PRN IV MILD PAIN Last administered on 02/03/18at 12:13; Start 02/03/18 at 07:00; Stop 02/04/18 at 06:59; Status DC Fentanyl Citrate (Fentanyl 2ml Vial) 50 mcg PRN Q5MIN PRN IV MODERATE TO SEVERE PAIN; Start 02/03/18 at 07:00; Stop 02/04/18 at 06:59; Status DC Morphine Sulfate (Morphine Sulfate) 1 mg PRN Q10MIN PRN IV SEVERE PAIN Last administered on 02/03/18at 11:42; Start 02/03/18 at 07:00; Stop 02/04/18 at 06:59; Status DC Ringer's Solution 1,000 ml @ 30 mls/hr Q24H IV Last administered on 02/03/18at 09:13; Start 02/03/18 at 07:00; Stop 02/03/18 at 18:59; Status DC Lidocaine HCl (Xylocaine-Mpf 1% Vial) 2 ml PRN 1X PRN ID PRIOR TO IV START; Start 02/03/18 at 07:00; Stop 02/04/18 at 06:59; Status DC Prochlorperazine Edisylate (Compazine) 5 mg PACU PRN PRN IV NAUSEA, MRX1; Start 02/03/18 at 07:00; Stop 02/04/18 at 06:59; Status DC Cefazolin Sodium/ Dextrose 50 ml @ 100 mls/hr 1X PREOP PRN IV PRIOR TO SURGERY Last administered on 02/03/18at 09:35; Start 02/03/18 at 08:00; Stop at 14:44; Status DC Fentanyl Citrate (Fentanyl 2ml Vial) 100 mcg STK-MED ONCE .ROUTE ; Start at 08:09; Stop 02/03/18 at 08:10; Status DC Rocuronium [place] (Zemuron) 50 mg STK-MED ONCE .ROUTE ; Start 02/03/18 at 08:09 ; Stop 02/03/18 at 08:10; Status DC Desflurane (Suprane) 60 ml STK-MED ONCE IH ; Start 02/03/18 at 08:09; Stop at 08:10; Status DC Dexamethasone Sodium Phosphate (Decadron) 20 mg STK-MED ONCE .ROUTE ; Start 02/03 at 08:09; Stop 02/03/18 at 08:10; Status DC Propofol 20 ml @ As Directed STK-MED ONCE IV ; Start 02/03/18 at 08:09; Stop 02/03 at 08:10; Status DC Lidocaine HCl (Lidocaine Pf 2% Vial) 5 ml STK-MED ONCE .ROUTE ; Start 02/03/18 at 08:09; Stop 02/03/18 at 08:10; Status DC Ondansetron HCl (Zofran) 4 mg STK-MED ONCE .ROUTE ; Start 02/03/18 at 08:09; Stop 02/03/18 at 08:10; Status DC Ketorolac Tromethamine (Toradol For Or Only) 30 mg STK-MED ONCE INJ ; Start 02/03 at 08:09; Stop 02/03/18 at 08:10; Status DC Ephedrine Sulfate (ePHEDrine PF IN SALINE SYRINGE) 50 mg STK-MED ONCE IV ; Start 02/03/18 at 08:15; Stop 02/03/18 at 08:16; Status DC Bupivacaine HCl/ Epinephrine Bitart (Marcaine-Epi 0.5%-[id number]) 50 ml STK-MED ONCE .ROUTE Last administered on 02/03/18at 09:49; Start 02/03/18 at 07:56; Stop 02/03/18 at 08:57; Status DC Iohexol (Omnipaque 300 Mg/ml) 100 ml STK-MED ONCE .ROUTE Last administered on at 09:49; Start 02/03/18 at 07:56; Stop 02/03/18 at 08:58; Status DC Phenylephrine HCl (PHENYLEPHRINE in 0.9% NACL PF) 1 mg STK-MED ONCE IV ; Start 02/03/18 at 09:24; Stop 02/03/18 at 09:25; Status DC Glycopyrrolate (Robinul) 1 mg STK-MED ONCE .ROUTE ; Start 02/03/18 at 09:55; Stop 02/03/18 at 09:56; Status DC Neostigmine Methylsulfate (Neostigmine Methylsulfate) 5 mg STK-MED ONCE .ROUTE ; Start 02/03/18 at 09:55; Stop 02/03/18 at 09:56; Status DC Albuterol Sulfate (Ventolin Neb Soln) 2.5 mg 1X PACU PRN NEB SHORTNESS OF BREATH Last administered on 02/03/18at 10:53; Start 02/03/18 at 11:00; Stop at 17:39; Status DC Diphenhydramine HCl (Benadryl) 25 mg PRN Q6HRS PRN PO ITCHING; Start 02/03/18 at 11:00 Diphenhydramine HCl (Benadryl) 25 mg PRN Q6HRS PRN IV ITCHING Last administered on 02/07/18at 14:34; Start 02/03/18 at 11:00 Enoxaparin Sodium (Lovenox 40mg Syringe) 40 mg Q24H SQ ; Start 02/03/18 at 11:00 ; Status Cancel Sodium Chloride (Normal Saline Flush) 3 ml QSHIFT PRN IV AFTER MEDS AND BLOOD DRAWS; Start 02/03/18 at 11:00 Potassium Chloride/Sodium Chloride 1,000 ml @ 75 mls/hr [id number] IV Last administered on 02/03/18at 23:55; Start 02/03/18 at 10:46; Stop 02/04/18 at 11:37; Status DC Dextrose (Dextrose 50%-Water Syringe) 12.5 gm PRN Q15MIN PRN IV SEE COMMENTS; Start 02/03/18 at 11:00 Oxycodone/ Acetaminophen (Percocet 5/325) 1 tab PRN Q4HRS PRN PO MILD PAIN, 1ST CHOICE Last administered on 02/03/18at 22:41; Start 02/03/18 at 11:00 Oxycodone/ Acetaminophen (Percocet 5/325) 2 tab PRN Q4HRS PRN PO MODERATE PAIN , SEVERE PAIN; Start 02/03/18 at 11:00 Morphine Sulfate (Morphine Sulfate) 5 mg PRN Q3HRS PRN IV MODERATE TO SEVERE PAIN Last administered on 02/08/18at 20:17; Start 02/03/18 at 11:15 Docusate Sodium (Colace) 100 mg BID PO Last administered on 02/08/18at 20:18; Start 02/03/18 at 11:00 Ondansetron HCl (Zofran) 4 mg PRN Q6HRS PRN IV NAUESA, 1ST CHOICE Last administered on 02/04/18at 16:22; Start 02/03/18 at 11:00 Enoxaparin Sodium (Lovenox 40mg Syringe) 40 mg Q24H SQ ; Start 02/04/18 at 09:00 ; Stop 02/04/18 at 09:00; Status DC Hydralazine HCl (Apresoline Inj) 10 mg 1X PACU PRN IVP ELEVATED BP, SEE COMMENTS; Start 02/03/18 at 12:15; Stop 02/03/18 at 20:00; Status DC Oxycodone/ Acetaminophen (Percocet 5/325) 1 tab 1X PACU PRN PO PAIN Last administered on 02/03/18at 12:20; Start 02/03/18 at 12:15; Stop 02/03/18 at 20:00; Status DC Albuterol Sulfate (Ventolin Neb Soln) 2.5 mg PRN Q2HR PRN NEB [id number] Last administered on 02/04/18at 04:11; Start 02/03/18 at 15:00 Albuterol/ Ipratropium (Duoneb) 3 ml RTQID NEB Last administered on 02/09/18at 15 :43; Start 02/03/18 at 16:00 Ondansetron HCl (Zofran) 4 mg PRN Q6HRS PRN IV NAUSEA/VOMITING; Start 02/04/18 at 07:00; Stop 02/05/18 at 06:59; Status DC Fentanyl Citrate (Fentanyl 2ml Vial) 25 mcg PRN Q5MIN PRN IV MILD PAIN; Start 02/04/18 at 07:00; Stop 02/05/18 at 06:59; Status DC Fentanyl Citrate (Fentanyl 2ml Vial) 50 mcg PRN Q5MIN PRN IV MODERATE TO SEVERE PAIN; Start 02/04/18 at 07:00; Stop 02/05/18 at 06:59; Status DC Morphine Sulfate (Morphine Sulfate) 1 mg PRN Q10MIN PRN IV SEVERE PAIN; Start 02/04/18 at 07:00; Stop 02/05/18 at 06:59; Status DC Ringer's Solution 1,000 ml @ 30 mls/hr Q24H IV ; Start 02/04/18 at 07:00; Stop 02/04/18 at 18:59; Status DC Lidocaine HCl (Xylocaine-Mpf 1% Vial) 2 ml PRN 1X PRN ID IV START; Start at 07:00; Stop 02/05/18 at 06:59; Status DC Prochlorperazine Edisylate (Compazine) 5 mg PACU PRN PRN IV NAUSEA, MRX1; Start 02/04/18 at 07:00; Stop 02/05/18 at 06:59; Status DC Furosemide (Lasix) 40 mg 1X ONCE IVP Last administered on 02/04/18at 12:47; Start 02/04/18 at 11:45; Stop 02/04/18 at 11:46; Status DC Sodium Chloride 1,000 ml @ 100 mls/hr Q10H IV Last administered on 02/05/18at 21 :05; Start 02/04/18 at 12:00; Stop 02/06/18 at 13:12; Status DC Hydralazine HCl (Apresoline Inj) 10 mg PRN Q4HRS PRN IVP ELEVATED BP, SEE COMMENTS Last administered on 02/09/18at 09:42; Start 02/04/18 at 12:15 Iohexol (Omnipaque 300 Mg/ml) 100 ml STK-MED ONCE .ROUTE ; Start 02/04/18 at 12: 11; Stop 02/04/18 at 12:12; Status DC Cefazolin Sodium/ Dextrose (Ancef 2gm Premix) 2 gm STK-MED ONCE IV ; Start at 07:00; Stop 02/04/18 at 12:31; Status DC Propofol 0 ml @ As Directed STK-MED ONCE IV ; Start 02/04/18 at 13:50; Stop at 13:51; Status DC Lidocaine HCl (Lidocaine Pf 2% Vial) 5 ml STK-MED ONCE .ROUTE ; Start 02/04/18 at 13:50; Stop 02/04/18 at 13:51; Status DC Famotidine (Pepcid Vial) 20 mg STK-MED ONCE .ROUTE ; Start 02/04/18 at 13:50; Stop 02/04/18 at 13:51; Status DC Dexamethasone Sodium Phosphate (Decadron) 20 mg STK-MED ONCE .ROUTE ; Start 02/04 at 13:50; Stop 02/04/18 at 13:52; Status DC Ondansetron HCl (Zofran) 4 mg STK-MED ONCE .ROUTE ; Start 02/04/18 at 13:50; Stop 02/04/18 at 13:52; Status DC Lorazepam (Ativan) 0.5 mg PRN Q8HRS PRN PO ANXIETY / AGITATION; Start 02/04/18 at 15:15 Furosemide (Lasix) 40 mg 1X ONCE IVP Last administered on 02/04/18at 17:00; Start 02/04/18 at 16:45; Stop 02/04/18 at 16:46; Status DC Ciprofloxacin/ Dextrose 200 ml @ 200 mls/hr Q12HR IV Last administered on at 08:10; Start 02/04/18 at 17:30; Stop 02/06/18 at 14:49; Status DC Metronidazole 100 ml @ 100 mls/hr Q12HR IV Last administered on 02/09/18at 08:24 ; Start 02/04/18 at 17:30 Metoclopramide HCl (Reglan Vial) 5 mg PRN Q6HRS PRN IV NAUSEA/VOMITING 2nd CHOICE Last administered on 02/05/18at 13:05; Start 02/04/18 at 17:30; Stop at 15:13; Status DC Lorazepam (Ativan) 0.5 mg PRN Q6HRS PRN IV ANXIETY / AGITATION 1ST CHOICE Last administered on 02/08/18at 20:20; Start 02/04/18 at 20:45 Acetaminophen (Tylenol) 500 mg PRN Q4HRS PRN PO FEVER; Start 02/04/18 at 22:15 Furosemide (Lasix) 40 mg 1X ONCE IVP Last administered on 02/05/18at 01:15; Start 02/05/18 at 01:30; Stop 02/05/18 at 01:31; Status DC Ringer's Solution 1,000 ml @ 75 mls/hr [id number] IV Last administered on at 09:52; Start 02/05/18 at 10:00; Stop 02/06/18 at 13:12; Status DC Iohexol (Omnipaque 300 Mg/ml) 100 ml STK-MED ONCE .ROUTE ; Start 02/05/18 at 10: 10; Stop 02/05/18 at 10:11; Status DC Fentanyl Citrate (Fentanyl 2ml Vial) 100 mcg STK-MED ONCE .ROUTE ; Start at 10:33; Stop 02/05/18 at 10:34; Status DC Ondansetron HCl (Zofran) 4 mg STK-MED ONCE .ROUTE ; Start 02/05/18 at 11:01; Stop 02/05/18 at 11:03; Status DC Iohexol (Omnipaque 300 Mg/ml) 100 ml STK-MED ONCE IV Last administered on at 11:27; Start 02/05/18 at 11:27; Stop 02/05/18 at 11:29; Status DC Haloperidol Lactate (Haldol Inj) 5 mg PRN Q6HRS PRN IVP AGITATION 2ND CHOICE Last administered on 02/09/18at 10:03; Start 02/05/18 at 12:30 Ciprofloxacin/ Dextrose 200 ml @ 200 mls/hr Q24H IV Last administered on at 08:24; Start 02/07/18 at 08:00 Magnesium Sulfate 50 ml @ 25 mls/hr PRN DAILY PRN IV for Mag < 1.7 on am labs; Start 02/07/18 at 09:00 Darbepoetin Rob (Aranesp) 60 mcg [id number] SQ Last administered on 02/07/18at 21: 30; Start 02/07/18 at 21:00 Lactobacillus Rhamnosus (Culturelle) 1 cap BID PO Last administered on at 20:18; Start 02/08/18 at 21:00 Sodium Chloride 1,000 ml @ 125 mls/hr Q8H IV Last administered on 02/09/18at 04: 39; Start 02/08/18 at 10:00; Stop 02/09/18 at 10:23; Status DC Furosemide (Lasix) 40 mg 1X ONCE IVP Last administered on 02/08/18at 12:07; Start 02/08/18 at 11:30; Stop 02/08/18 at 11:31; Status DC Amino Acids/ Glycerin/ Electrolytes 1,000 ml @ 75 mls/hr [id number] IV Last administered on 02/09/18at 15:28; Start 02/08/18 at 12:00 Sodium Bicarbonate (Sodium Bicarb Adult 8.4% Syr) 50 meq 1X ONCE IV Last administered on 02/08/18at 12:08; Start 02/08/18 at 12:30; Stop 02/08/18 at 12:31; Status DC Albuterol/ Ipratropium (Duoneb) 3 ml STK-MED ONCE .ROUTE ; Start 02/08/18 at 19: 39; Stop 02/08/18 at 19:40; Status DC Neostigmine Methylsulfate (Neostigmine Methylsulfate) 5 mg STK-MED ONCE .ROUTE ; Start 02/06/18 at 12:00; Stop 02/09/18 at 06:52; Status DC Lidocaine HCl (Lidocaine HCl 2% Abboject) 100 mg STK-MED ONCE .ROUTE ; Start 02/06/18 at 12:00; Stop 02/09/18 at 06:52; Status DC Phenylephrine HCl (PHENYLEPHRINE in 0.9% NACL PF) 2 mg STK-MED ONCE IV ; Start 02/06/18 at 12:00; Stop 02/09/18 at 06:52; Status DC Propofol (Diprivan) 200 mg STK-MED ONCE IV ; Start 02/06/18 at 12:00; Stop at 06:52; Status DC Glycopyrrolate (Robinul) 1 mg STK-MED ONCE .ROUTE ; Start 02/06/18 at 12:00; Stop 02/09/18 at 06:52; Status DC Dexamethasone Sodium Phosphate (Decadron) 20 mg STK-MED ONCE .ROUTE ; Start 02/06 at 12:00; Stop 02/09/18 at 06:52; Status DC Metoprolol Tartrate (Lopressor Vial) 5 mg PRN Q6HRS PRN IVP TACHYCARDIA; Start 02/09/18 at 12:45 Quetiapine Fumarate (SEROquel) 50 mg QHS PO ; Start 02/09/18 at 21:00 Active Scripts Active Reported Ferrous Sulfate 325 Mg Tablet 1 Tab PO DAILY Super B Complex-Vitamin C (B Complex With Vitamin C) 1 Each Tablet 1 Each PO Warfarin Sodium 5 Mg Tablet 7.5 Mg PO QTUTHSA Amiodarone Hcl 200 Mg Tablet 100 Mg PO DAILY Furosemide 20 Mg Tablet 10 Mg PO QMWF Metoprolol Succinate ( Xl ) (Metoprolol Succinate) 25 Mg Tab.er.24h 1 Tab PO QPM Calcitriol 0.25 Mcg Capsule 0.25 Mcg PO QM-W-F Warfarin Sodium 5 Mg Tablet 5 Mg PO QMWF Loratadine 10 Mg Tablet 10 Mg PO QHS Tamsulosin Hcl 0.4 Mg Cap.er.24h 0.4 Mg PO QHS Atorvastatin Calcium 10 Mg Tablet 10 Mg PO HS Duoneb 0.5-3(2.5) Mg/3 Ml (Albuterol/Ipratropium) 3 Ml Ampul.neb 3 Ml IH TID PRN Flonase (Fluticasone Propionate) 16 Gm [place].susp 2 [place] NS BID Allergies Allergies: Coded Allergies: No Known Drug Allergies (Unverified , 02/05/18) ROS Review of System Patient denies fevers, chills, weight loss, dyspnea, angina, abdominal pain, change in bowels, or dysuria. 14-point review of systems is negative. Physical Exam Physical Examination General: Well-developed, well-nourished, white male, in no acute distress HEENT: Normocephalic andatraumatic. Temporal arteriespulsatile and nontender. Neck: Supple without bruit, no meningismus Musculoskeletal: Stability:see neurologic. Gait exam:see neurologic. Tone:see neurologic. Strength:see neurologic. Neurological: Mental Status:Orientation, memory, attention span/concentration, language, fund of knowledge: He does not know the date or location. He does not know the name of the president. He does name and repeat well and follow commands. Speech is fluent. Cranial Nerves:Pupils equal and reactive to light, extraocular movements areintact, visual dennis are full to confrontation. Facial sensation is normal. There is no facial asymmetry. Vestibulo-ocular reflex is intact. Palate elvates and tongue protrudes in midline. All other cranial related problems are negative except as mentioned before.Reflexes:1+ and symmetric with flexor plantar responses. Motor:4/5 strength with normal tone and bulk. Coordination:Finger-nose finger and [id number] testing are normal. Rapid alternating movements and fine finger movements are intact. Gait:Not tested. Sensory:Stocking loss Vitals VITALS Vital Signs Date Time Temp Pulse Resp B/P (MAP) Pulse Ox O2 Delivery O2 Flow Rate FiO2 02/09/18 16:00 4.0 02/09/18 16:00 98.7 89 28 167/72 (103) 95 Nasal Cannula 98.7 Labs Labs Laboratory Tests Test 02/08/18 05:15 02/08/18 07:45 02/08/18 12:15 02/08/18 15:25 White Blood Count 12.1 x10^3/uL (4.0-11.0) Red Blood Count 2.96 x10^6/uL (4.30-5.70) Hemoglobin 9.4 g/dL (13.0-17.5) Hematocrit 28.9 % (39.0-53.0) Mean Corpuscular Volume 98 fL (79-100) Mean Corpuscular Hemoglobin 32 pg (25-35) Mean Corpuscular Hemoglobin Concent 33 g/dL (31-37) Red Cell Distribution Width 15.2 % (11.5-14.5) Platelet Count 123 x10^3/uL (140-400) Neutrophils (%) (Auto) 85 % (31-73) Lymphocytes (%) (Auto) 4 % (24-48) Monocytes (%) (Auto) 12 % (0-9) Eosinophils (%) (Auto) 0 % (0-3) Basophils (%) (Auto) 0 % (0-3) Neutrophils # (Auto) 10.2 x10^3uL (1.8-7.7) Lymphocytes # (Auto) 0.4 x10^3/uL (1.0-4.8) Monocytes # (Auto) 1.4 x10^3/uL (0.0-1.1) Eosinophils # (Auto) 0.0 x10^3/uL (0.0-0.7) Basophils # (Auto) 0.0 x10^3/uL (0.0-0.2) Sodium Level 145 mmol/L (136-145) 146 mmol/L (136-145) Potassium Level 5.2 mmol/L (3.5-5.1) 4.8 mmol/L (3.5-5.1) Chloride Level 112 mmol/L (98-107) 112 mmol/L (98-107) Carbon Dioxide Level 27 mmol/L (21-32) 26 mmol/L (21-32) Anion Gap 6 (6-14) 8 (6-14) Blood Urea Nitrogen 69 mg/dL (8-26) 73 mg/dL (8-26) Creatinine 2.0 mg/dL (0.7-1.3) 2.0 mg/dL (0.7-1.3) Estimated GFR (Cockcroft-Gault) 32.6 32.6 Glucose Level 101 mg/dL (70-99) 120 mg/dL (70-99) Calcium Level 11.0 mg/dL (8.5-10.1) 10.7 mg/dL (8.5-10.1) Phosphorus Level 2.9 mg/dL (2.6-4.7) Magnesium Level 2.0 mg/dL (1.8-2.4) Albumin 2.2 g/dL (3.4-5.0) O2 Saturation 92 % (92-99) Arterial Blood pH 7.29 (7.35-7.45) Arterial Blood pCO2 at Patient Temp 48 mmHg (35-46) Arterial Blood pO2 at Patient Temp 68 mmHg (65-108) Arterial Blood HCO3 22 mmol/L (21-28) Arterial Blood Base Excess -4 mmol/L (-3-3) FiO2 40 Lactic Acid Level 0.9 mmol/L (0.4-2.0) Test 02/09/18 04:15 Sodium Level 148 mmol/L (136-145) Potassium Level 4.7 mmol/L (3.5-5.1) Chloride Level 114 mmol/L (98-107) Carbon Dioxide Level 28 mmol/L (21-32) Anion Gap 6 (6-14) Blood Urea Nitrogen 72 mg/dL (8-26) Creatinine 1.8 mg/dL (0.7-1.3) Estimated GFR (Cockcroft-Gault) 36.9 BUN/Creatinine Ratio 40 (6-20) Glucose Level 115 mg/dL (70-99) Calcium Level 10.3 mg/dL (8.5-10.1) Phosphorus Level 2.8 mg/dL (2.6-4.7) Magnesium Level 2.0 mg/dL (1.8-2.4) Total Bilirubin 1.4 mg/dL (0.2-1.0) Aspartate Amino Transf (AST/SGOT) 19 U/L (15-37) Alanine Aminotransferase (ALT/SGPT) 16 U/L (16-63) Alkaline Phosphatase 64 U/L (46-116) Total Protein 5.4 g/dL (6.4-8.2) Albumin 1.9 g/dL (3.4-5.0) Albumin/Globulin Ratio 0.5 (1.0-1.7) Lipase 140 U/L (73-393) Laboratory Tests Test 02/09/18 04:15 Sodium Level 148 mmol/L (136-145) Potassium Level 4.7 mmol/L (3.5-5.1) Chloride Level 114 mmol/L (98-107) Carbon Dioxide Level 28 mmol/L (21-32) Anion Gap 6 (6-14) Blood Urea Nitrogen 72 mg/dL (8-26) Creatinine 1.8 mg/dL (0.7-1.3) Estimated GFR (Cockcroft-Gault) 36.9 BUN/Creatinine Ratio 40 (6-20) Glucose Level 115 mg/dL (70-99) Calcium Level 10.3 mg/dL (8.5-10.1) Phosphorus Level 2.8 mg/dL (2.6-4.7) Magnesium Level 2.0 mg/dL (1.8-2.4) Total Bilirubin 1.4 mg/dL (0.2-1.0) Aspartate Amino Transf (AST/SGOT) 19 U/L (15-37) Alanine Aminotransferase (ALT/SGPT) 16 U/L (16-63) Alkaline Phosphatase 64 U/L (46-116) Total Protein 5.4 g/dL (6.4-8.2) Albumin 1.9 g/dL (3.4-5.0) Albumin/Globulin Ratio 0.5 (1.0-1.7) Lipase 140 U/L (73-393) Assessment/Plan Assessment/Plan Impression: Postoperative delirium, metabolic issues including renal insufficiency and COPD , but no bedside evidence of stroke, ongoing seizure activity, or central nervous system infection. Recommendations: Seroquel to help reestablish a normal sleep-wake cycle. I discussed side effects including sudden . Try to avoid Haldol and Ativan, I asked the nurse to call for a 1:1 nursing order instead, if needed. CT of the head Additional laboratory studies I discussed all these findings with the patient's . Thank you for letting me help with the patient's care. JOSEP MOSQUERA MD Feb 09, 2018 17:21
[2018-02-09] MEDS ORDERED: QUEtiapine 25 MG TABLET. PO SCH (21:00)
[2018-02-09] MEDS: diphenhydrAMINE 50 MG/ML VIAL IV PRN (22:30)
[2018-02-10] VITALS (13 sets, daily range): BP systolic 139–196; BP diastolic 65–96
[2018-02-10] MEDS: hydrALAZINE 20 MG/ML VIAL. IVP PRN (03:12)
[2018-02-10 05:33] LABS: ALBUMIN 2.1 g/dL (3.4-5.0); CALCIUM 10.6 mg/dL (8.5-10.1); CREATININE 1.4 mg/dL (0.7-1.3); GFR 49.3; MAGNESIUM 1.7 mg/dL (1.8-2.4); PHOSPHORUS 2.1 mg/dL (2.6-4.7); POTASSIUM 4.4 mmol/L (3.5-5.1)
[2018-02-10] MEDS: AMINO AC 3%/ELECTROLYTE/GLYCER 1,000 ML IV SCH ×2 (05:43→17:03)
[2018-02-10] MEDS: IPRATRPIUM/ALBUTEROL 0.5/2.5MG 3 ML NEBU. NEB SCH ×4 (08:12→19:10)
[2018-02-10] MEDS: CIPROFLOXACIN 400MG PREMIX 200 ML IV SCH (09:00)
[2018-02-10] MEDS: LACTOBACILLUS RHAMNOSUS GG 1 CAPSULE. PO SCH ×2 (09:00→21:00)
[2018-02-10] MEDS: DOCUSATE SODIUM 100 MG CAPSULE. PO SCH ×2 (09:00→21:00)
[2018-02-10] MEDS: HALOPERIDOL LACTATE 5 MG/ML VIAL. IVP PRN (09:00)
--- NOTE | 2018-02-10 09:10 | PDOC ---
Objective: Objective: D/w RN - still confused, think worse, failed swallow, on PPN, plans for head CT, had a very small stool. Vital Signs: Vital Signs Date Time Temp Pulse Resp B/P (MAP) Pulse Ox O2 Delivery O2 Flow Rate FiO2 02/10/18 08:14 96 Nasal Cannula 4.0 02/10/18 08:00 103 35 152/67 (95) 02/10/18 07:00 98.0 98.0 Labs: Laboratory Tests Test 02/10/18 04:45 Erythrocyte Sedimentation Rate 60 Sodium Level 148 mmol/L Potassium Level 4.4 mmol/L Chloride Level 115 mmol/L Carbon Dioxide Level 27 mmol/L Anion Gap 6 Blood Urea Nitrogen 63 mg/dL Creatinine 1.4 mg/dL Estimated GFR (Cockcroft-Gault) 49.3 Glucose Level 108 mg/dL Calcium Level 10.6 mg/dL Phosphorus Level 2.1 mg/dL Magnesium Level 1.7 mg/dL Ammonia 11 mcmol/L Albumin 2.1 g/dL Vitamin B12 Level 717 pg/mL 25-Hydroxy Vitamin D Total 31.9 ng/mL Serum Folate 8.25 ng/ml Thyroid Stimulating Hormone (TSH) 0.748 uIU/mL Imaging: [employer] Bedside Swallow Eval Bedside swallow eval completed. Pt w/RR in upper 30s throughout eval. Pt frequently noted to talk w/bolus in oral cavity, occasionally forgoing swallow. See full rpt in interventions section for details. IMPRESSIONS: Moderate risk of aspiration across consistencies r/t high RR which impairs ability to achieve and maintain airway closure. This along w/impaired attn to task and pt tendency to talk w/o producing swallow increase his risk of aspiration. Would con't NPO and allow occasional ice chip when pt sitting up and alert. Will f/u for progress toward po diet. Time NPO required is unclear but current changes appear acute and should improve in days ahead. RECOMMENDATIONS: NPO meds and nutrition. May need short-term non-oral nutrition. Oral care w/oral care kit-NO SWABS soaked in water. FIFI Stock, pt's and RN Amita. Instructed in oral care procedures and explained current dysphagia. PE: GEN: NAD, up to chair, restless LUNGS: NC HEART: RRR ABD: soft, doesn't seem tender, BS+ NEURO/PSYCH: confused, mumbling A/P: Post-op delirium, dysphagia S/p ERCP 02/05 - bili improved (1.4) -- [employer] recs reviewed, will follow. BI WILCOX Feb 10, 2018 09:10
--- NOTE | 2018-02-10 09:14 | PDOC ---
SUBJECTIVE ROS On O2 4 lts by [place] , very confused As per still bringing up a lot of brownish secretions OBJECTIVE Vital Signs Vital Signs Date Time Temp Pulse Resp B/P (MAP) Pulse Ox O2 Delivery O2 Flow Rate FiO2 02/10/18 08:14 96 Nasal Cannula 4.0 02/10/18 08:00 103 35 152/67 (95) 02/10/18 07:00 98.0 98.0 I & 0 Intake and Output 02/10/18 07:00 Intake Total 1055 ml Output Total 2115 ml Balance -1060 ml IV Total 1055 ml Output Urine Total 2115 ml # Voids 55 PHYSICAL EXAM Physical Exam GEN: On O2 by [place], NAD HEENT-On O2 BY in neck- supple LUNGS: CTAB ant HEART: RRR, no murmurs ABD: s/p GB surgery, obese EXTREMITY: No edema SKIN: No rashes, NEURO/PSYCH: Confused - Rodriguez + DIAGNOSIS/ASSESSMENT Assessment & Plan ARF/ ? ATN : Good UOP Improving Renal function- back to baseline Unlikely that Confusion is due to Uremia Current fluid and E-lyte status does not necessitate emergent need for dialysis. 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 \\ Repeat CxR AMS - ?ICU delirium Consult neurology HTN:Current BP meds as reviewed. See orders for changes. HypoALbuminemia - As per GS /Drier Operator On procalAmine DW and RN at bed side CxR- 1. Mild cardiomegaly. 2. Minimal right basilar atelectasis. COMMENT/RELEVANT DATA Meds Current Medications Medications (Trade) Dose Ordered Sig/Patricia Start Time Stop Time Status Last Admin Dose Admin Acetaminophen (Tylenol) 500 mg PRN Q4HRS PRN 02/04/18 22:15 Albuterol Sulfate (Ventolin Neb Soln) 2.5 mg PRN Q2HR PRN 02/03/18 15:00 02/04/18 04:11 2.5 MG Albuterol/ Ipratropium (Duoneb) 3 ml STK-MED ONCE 02/08/18 19:39 02/08/18 19:40 DC Amino Acids/ Glycerin/ Electrolytes 1,000 ml @ 75 mls/hr [id number] 02/08/18 12:00 02/10/18 05:43 75 MLS/HR Bupivacaine HCl/ Epinephrine Bitart (Marcaine-Epi 0.5%-[id number]) 50 ml STK-MED ONCE 02/03/18 07:56 02/03/18 08:57 DC 02/03/18 09:49 8 ML Cefazolin Sodium/ Dextrose (Ancef 2gm Premix) 2 gm STK-MED ONCE 02/03/18 07:00 02/04/18 12:31 DC Ciprofloxacin/ Dextrose 200 ml @ 200 mls/hr Q24H 02/07/18 08:00 02/10/18 09:00 200 MLS/HR Darbepoetin Rob (Aranesp) 60 mcg [id number] 02/07/18 21:00 02/07/18 21:30 60 MCG Desflurane (Suprane) 60 ml STK-MED ONCE 02/03/18 08:09 02/03/18 08:10 DC Dexamethasone Sodium Phosphate (Decadron) 20 mg STK-MED ONCE 02/06/18 12:00 02/09/18 06:52 DC Dextrose (Dextrose 50%-Water Syringe) 12.5 gm PRN Q15MIN PRN 02/03/18 11:00 Diphenhydramine HCl (Benadryl) 25 mg PRN Q6HRS PRN 02/03/18 11:00 02/09/18 22:30 25 MG Docusate Sodium (Colace) 100 mg BID 02/03/18 11:00 02/09/18 20:52 100 MG Enoxaparin Sodium (Lovenox 40mg Syringe) 40 mg Q24H 02/04/18 09:00 02/04/18 09:00 DC Ephedrine Sulfate (ePHEDrine PF IN SALINE SYRINGE) 50 mg STK-MED ONCE 02/03/18 08:15 02/03/18 08:16 DC Famotidine (Pepcid Vial) 20 mg STK-MED ONCE 02/04/18 13:50 02/04/18 13:51 DC Fentanyl Citrate (Fentanyl 2ml Vial) 100 mcg STK-MED ONCE 02/05/18 10:33 02/05/18 10:34 DC Furosemide (Lasix) 40 mg 1X ONCE 02/08/18 11:30 02/08/18 11:31 DC 02/08/18 12:07 40 MG Glycopyrrolate (Robinul) 1 mg STK-MED ONCE 02/06/18 12:00 02/09/18 06:52 DC Haloperidol Lactate (Haldol Inj) 5 mg PRN Q6HRS PRN 02/05/18 12:30 02/10/18 09:00 5 MG Hydralazine HCl (Apresoline Inj) 10 mg PRN Q4HRS PRN 02/04/18 12:15 02/10/18 03:12 10 MG Iohexol (Omnipaque 300 Mg/ml) 100 ml STK-MED ONCE 02/05/18 11:27 02/05/18 11:29 DC 02/05/18 11:27 30 ML Ketorolac Tromethamine (Toradol For Or Only) 30 mg STK-MED ONCE 02/03/18 08:09 02/03/18 08:10 DC Lactobacillus Rhamnosus (Culturelle) 1 cap BID 02/08/18 21:00 02/09/18 20:52 1 CAP Lidocaine HCl (Lidocaine HCl 2% Abboject) 100 mg STK-MED ONCE 02/06/18 12:00 02/09/18 06:52 DC Lidocaine HCl (Lidocaine Pf 2% Vial) 5 ml STK-MED ONCE 02/04/18 13:50 02/04/18 13:51 DC Lidocaine HCl (Xylocaine-Mpf 1% Vial) 2 ml PRN 1X PRN 02/04/18 07:00 02/05/18 06:59 DC Lorazepam (Ativan) 0.5 mg PRN Q6HRS PRN 02/04/18 20:45 02/10/18 08:18 0.5 MG Magnesium Sulfate 50 ml @ 25 mls/hr PRN DAILY PRN 02/07/18 09:00 Metoclopramide HCl (Reglan Vial) 5 mg PRN Q6HRS PRN 02/04/18 17:30 02/09/18 15:13 DC 02/05/18 13:05 5 MG Metoprolol Tartrate (Lopressor Vial) 5 mg PRN Q6HRS PRN 02/09/18 12:45 Metronidazole 100 ml @ 100 mls/hr Q12HR 02/04/18 17:30 02/09/18 20:52 100 MLS/HR Morphine Sulfate (Morphine Sulfate) 1 mg PRN Q10MIN PRN 02/04/18 07:00 02/05/18 06:59 DC Neostigmine Methylsulfate (Neostigmine Methylsulfate) 5 mg STK-MED ONCE 02/06/18 12:00 02/09/18 06:52 DC Ondansetron HCl (Zofran) 4 mg STK-MED ONCE 02/05/18 11:01 02/05/18 11:03 DC Oxycodone/ Acetaminophen (Percocet 5/325) 1 tab 1X PACU PRN 02/03/18 12:15 02/03/18 20:00 DC 02/03/18 12:20 1 TAB Phenylephrine HCl (PHENYLEPHRINE in 0.9% NACL PF) 2 mg STK-MED ONCE 02/06/18 12:00 02/09/18 06:52 DC Potassium Chloride/Sodium Chloride 1,000 ml @ 75 mls/hr [id number] 02/03/18 10:46 02/04/18 11:37 DC 02/03/18 23:55 75 MLS/HR Prochlorperazine Edisylate (Compazine) 5 mg PACU PRN PRN 02/04/18 07:00 02/05/18 06:59 DC Propofol (Diprivan) 200 mg STK-MED ONCE 02/06/18 12:00 02/09/18 06:52 DC Quetiapine Fumarate (SEROquel) 50 mg QHS 02/09/18 21:00 02/09/18 20:53 50 MG Ringer's Solution 1,000 ml @ 75 mls/hr [id number] 02/05/18 10:00 02/06/18 13:12 DC 02/05/18 09:52 75 MLS/HR Rocuronium Lawtell (Zemuron) 50 mg STK-MED ONCE 02/03/18 08:09 02/03/18 08:10 DC Sodium Bicarbonate (Sodium Bicarb Adult 8.4% Syr) 50 meq 1X ONCE 02/08/18 12:30 02/08/18 12:31 DC 02/08/18 12:08 50 MEQ Sodium Chloride 1,000 ml @ 125 mls/hr Q8H 02/08/18 10:00 02/09/18 10:23 DC 02/09/18 04:39 125 MLS/HR Sodium Chloride (Normal Saline Flush) 3 ml QSHIFT PRN 02/03/18 11:00 Lab Laboratory Tests Test 02/10/18 04:45 Erythrocyte Sedimentation Rate 60 (0-15) Sodium Level 148 mmol/L (136-145) Potassium Level 4.4 mmol/L (3.5-5.1) Chloride Level 115 mmol/L (98-107) Carbon Dioxide Level 27 mmol/L (21-32) Anion Gap 6 (6-14) Blood Urea Nitrogen 63 mg/dL (8-26) Creatinine 1.4 mg/dL (0.7-1.3) Estimated GFR (Cockcroft-Gault) 49.3 Glucose Level 108 mg/dL (70-99) Calcium Level 10.6 mg/dL (8.5-10.1) Phosphorus Level 2.1 mg/dL (2.6-4.7) Magnesium Level 1.7 mg/dL (1.8-2.4) Ammonia 11 mcmol/L (11-34) Albumin 2.1 g/dL (3.4-5.0) Vitamin B12 Level 717 pg/mL (247-911) 25-Hydroxy Vitamin D Total 31.9 ng/mL (30-100) Serum Folate 8.25 ng/ml (3.2-20.0) Thyroid Stimulating Hormone (TSH) 0.748 uIU/mL (0.358-3.74) Results All relevant outside records, renal labs, imaging studies, telemetry/EKG's were reviewed. KIERSTEN BRODERICK MD Feb 10, 2018 09:13
--- NOTE | 2018-02-10 10:06 | PDOC ---
PROGRESS NOTES Assessment Postoperative delirium, metabolic issues including renal insufficiency and COPD , but no bedside evidence of stroke, ongoing seizure activity, or central nervous system infection. Labs so far negative or pending Plan Increase seroquel 1:[address] of the head ordered yesterday Await additional laboratory studies Discussed with the patient's . Subjective thinks patient is worse Objective Vital Signs Date Time Temp Pulse Resp B/P (MAP) Pulse Ox O2 Delivery O2 Flow Rate FiO2 02/10/18 08:14 96 Nasal Cannula 4.0 02/10/18 08:00 103 35 152/67 (95) 02/10/18 07:00 98.0 98.0 Intake and Output 02/10/18 06:59 Intake Total 1055 ml Output Total 2265 ml Balance -1210 ml IV Total 1055 ml Output Urine Total 2265 ml # Voids 55 PHYSICAL EXAM He can tell me his name, does not follow commands, fidgeting and fumbling at imaginary objects PERRL. EOMI. CN: no focal findings. Muscle tone: normal. Muscle strength: moves all extremities DTR: 1+ Plantar reflex: flexor Gait: not examined in bed. Sensory exam: no abnormal findings. Cerebellar: not cooperative Review of Relevant I have reviewed the following items aron (where applicable) has been applied. Labs Laboratory Tests Test 02/08/18 12:15 02/08/18 15:25 02/09/18 04:15 02/09/18 07:30 Lactic Acid Level 0.9 mmol/L (0.4-2.0) Sodium Level 146 mmol/L (136-145) 148 mmol/L (136-145) Potassium Level 4.8 mmol/L (3.5-5.1) 4.7 mmol/L (3.5-5.1) Chloride Level 112 mmol/L (98-107) 114 mmol/L (98-107) Carbon Dioxide Level 26 mmol/L (21-32) 28 mmol/L (21-32) Anion Gap 8 (6-14) 6 (6-14) Blood Urea Nitrogen 73 mg/dL (8-26) 72 mg/dL (8-26) Creatinine 2.0 mg/dL (0.7-1.3) 1.8 mg/dL (0.7-1.3) Estimated GFR (Cockcroft-Gault) 32.6 36.9 Glucose Level 120 mg/dL (70-99) 115 mg/dL (70-99) Calcium Level 10.7 mg/dL (8.5-10.1) 10.3 mg/dL (8.5-10.1) BUN/Creatinine Ratio 40 (6-20) Phosphorus Level 2.8 mg/dL (2.6-4.7) Magnesium Level 2.0 mg/dL (1.8-2.4) Total Bilirubin 1.4 mg/dL (0.2-1.0) Aspartate Amino Transf (AST/SGOT) 19 U/L (15-37) Alanine Aminotransferase (ALT/SGPT) 16 U/L (16-63) Alkaline Phosphatase 64 U/L (46-116) Total Protein 5.4 g/dL (6.4-8.2) Albumin 1.9 g/dL (3.4-5.0) Albumin/Globulin Ratio 0.5 (1.0-1.7) Lipase 140 U/L (73-393) Nasal Screen MRSA (PCR) Negative (Negative) Test 02/10/18 04:45 Erythrocyte Sedimentation Rate 60 (0-15) Sodium Level 148 mmol/L (136-145) Potassium Level 4.4 mmol/L (3.5-5.1) Chloride Level 115 mmol/L (98-107) Carbon Dioxide Level 27 mmol/L (21-32) Anion Gap 6 (6-14) Blood Urea Nitrogen 63 mg/dL (8-26) Creatinine 1.4 mg/dL (0.7-1.3) Estimated GFR (Cockcroft-Gault) 49.3 Glucose Level 108 mg/dL (70-99) Calcium Level 10.6 mg/dL (8.5-10.1) Phosphorus Level 2.1 mg/dL (2.6-4.7) Magnesium Level 1.7 mg/dL (1.8-2.4) Ammonia 11 mcmol/L (11-34) Albumin 2.1 g/dL (3.4-5.0) Vitamin B12 Level 717 pg/mL (247-911) 25-Hydroxy Vitamin D Total 31.9 ng/mL (30-100) Serum Folate 8.25 ng/ml (3.2-20.0) Thyroid Stimulating Hormone (TSH) 0.748 uIU/mL (0.358-3.74) Laboratory Tests Test 02/10/18 04:45 Erythrocyte Sedimentation Rate 60 (0-15) Sodium Level 148 mmol/L (136-145) Potassium Level 4.4 mmol/L (3.5-5.1) Chloride Level 115 mmol/L (98-107) Carbon Dioxide Level 27 mmol/L (21-32) Anion Gap 6 (6-14) Blood Urea Nitrogen 63 mg/dL (8-26) Creatinine 1.4 mg/dL (0.7-1.3) Estimated GFR (Cockcroft-Gault) 49.3 Glucose Level 108 mg/dL (70-99) Calcium Level 10.6 mg/dL (8.5-10.1) Phosphorus Level 2.1 mg/dL (2.6-4.7) Magnesium Level 1.7 mg/dL (1.8-2.4) Ammonia 11 mcmol/L (11-34) Albumin 2.1 g/dL (3.4-5.0) Vitamin B12 Level 717 pg/mL (247-911) 25-Hydroxy Vitamin D Total 31.9 ng/mL (30-100) Serum Folate 8.25 ng/ml (3.2-20.0) Thyroid Stimulating Hormone (TSH) 0.748 uIU/mL (0.358-3.74) Microbiology 02/04/18 Blood Culture - Final, Complete NO GROWTH AFTER 5 DAYS Medications Current Medications Ondansetron HCl (Zofran) 4 mg PRN Q6HRS PRN IV NAUSEA/VOMITING Last administered on 02/04/18at 04:08; Start 02/03/18 at 07:00; Stop 02/04/18 at 06:59; Status DC Fentanyl Citrate (Fentanyl 2ml Vial) 25 mcg PRN Q5MIN PRN IV MILD PAIN Last administered on 02/03/18at 12:13; Start 02/03/18 at 07:00; Stop 02/04/18 at 06:59; Status DC Fentanyl Citrate (Fentanyl 2ml Vial) 50 mcg PRN Q5MIN PRN IV MODERATE TO SEVERE PAIN; Start 02/03/18 at 07:00; Stop 02/04/18 at 06:59; Status DC Morphine Sulfate (Morphine Sulfate) 1 mg PRN Q10MIN PRN IV SEVERE PAIN Last administered on 02/03/18at 11:42; Start 02/03/18 at 07:00; Stop 02/04/18 at 06:59; Status DC Ringer's Solution 1,000 ml @ 30 mls/hr Q24H IV Last administered on 02/03/18at 09:13; Start 02/03/18 at 07:00; Stop 02/03/18 at 18:59; Status DC Lidocaine HCl (Xylocaine-Mpf 1% Vial) 2 ml PRN 1X PRN ID PRIOR TO IV START; Start 02/03/18 at 07:00; Stop 02/04/18 at 06:59; Status DC Prochlorperazine Edisylate (Compazine) 5 mg PACU PRN PRN IV NAUSEA, MRX1; Start 02/03/18 at 07:00; Stop 02/04/18 at 06:59; Status DC Cefazolin Sodium/ Dextrose 50 ml @ 100 mls/hr 1X PREOP PRN IV PRIOR TO SURGERY Last administered on 02/03/18at 09:35; Start 02/03/18 at 08:00; Stop at 14:44; Status DC Fentanyl Citrate (Fentanyl 2ml Vial) 100 mcg STK-MED ONCE .ROUTE ; Start at 08:09; Stop 02/03/18 at 08:10; Status DC Rocuronium [place] (Zemuron) 50 mg STK-MED ONCE .ROUTE ; Start 02/03/18 at 08:09 ; Stop 02/03/18 at 08:10; Status DC Desflurane (Suprane) 60 ml STK-MED ONCE IH ; Start 02/03/18 at 08:09; Stop at 08:10; Status DC Dexamethasone Sodium Phosphate (Decadron) 20 mg STK-MED ONCE .ROUTE ; Start 02/03 at 08:09; Stop 02/03/18 at 08:10; Status DC Propofol 20 ml @ As Directed STK-MED ONCE IV ; Start 02/03/18 at 08:09; Stop 02/03 at 08:10; Status DC Lidocaine HCl (Lidocaine Pf 2% Vial) 5 ml STK-MED ONCE .ROUTE ; Start 02/03/18 at 08:09; Stop 02/03/18 at 08:10; Status DC Ondansetron HCl (Zofran) 4 mg STK-MED ONCE .ROUTE ; Start 02/03/18 at 08:09; Stop 02/03/18 at 08:10; Status DC Ketorolac Tromethamine (Toradol For Or Only) 30 mg STK-MED ONCE INJ ; Start 02/03 at 08:09; Stop 02/03/18 at 08:10; Status DC Ephedrine Sulfate (ePHEDrine PF IN SALINE SYRINGE) 50 mg STK-MED ONCE IV ; Start 02/03/18 at 08:15; Stop 02/03/18 at 08:16; Status DC Bupivacaine HCl/ Epinephrine Bitart (Marcaine-Epi 0.5%-[id number]) 50 ml STK-MED ONCE .ROUTE Last administered on 02/03/18at 09:49; Start 02/03/18 at 07:56; Stop 02/03/18 at 08:57; Status DC Iohexol (Omnipaque 300 Mg/ml) 100 ml STK-MED ONCE .ROUTE Last administered on at 09:49; Start 02/03/18 at 07:56; Stop 02/03/18 at 08:58; Status DC Phenylephrine HCl (PHENYLEPHRINE in 0.9% NACL PF) 1 mg STK-MED ONCE IV ; Start 02/03/18 at 09:24; Stop 02/03/18 at 09:25; Status DC Glycopyrrolate (Robinul) 1 mg STK-MED ONCE .ROUTE ; Start 02/03/18 at 09:55; Stop 02/03/18 at 09:56; Status DC Neostigmine Methylsulfate (Neostigmine Methylsulfate) 5 mg STK-MED ONCE .ROUTE ; Start 02/03/18 at 09:55; Stop 02/03/18 at 09:56; Status DC Albuterol Sulfate (Ventolin Neb Soln) 2.5 mg 1X PACU PRN NEB SHORTNESS OF BREATH Last administered on 02/03/18at 10:53; Start 02/03/18 at 11:00; Stop at 17:39; Status DC Diphenhydramine HCl (Benadryl) 25 mg PRN Q6HRS PRN PO ITCHING; Start 02/03/18 at 11:00 Diphenhydramine HCl (Benadryl) 25 mg PRN Q6HRS PRN IV ITCHING Last administered on 02/09/18at 22:30; Start 02/03/18 at 11:00 Enoxaparin Sodium (Lovenox 40mg Syringe) 40 mg Q24H SQ ; Start 02/03/18 at 11:00 ; Status Cancel Sodium Chloride (Normal Saline Flush) 3 ml QSHIFT PRN IV AFTER MEDS AND BLOOD DRAWS; Start 02/03/18 at 11:00 Potassium Chloride/Sodium Chloride 1,000 ml @ 75 mls/hr [id number] IV Last administered on 02/03/18at 23:55; Start 02/03/18 at 10:46; Stop 02/04/18 at 11:37; Status DC Dextrose (Dextrose 50%-Water Syringe) 12.5 gm PRN Q15MIN PRN IV SEE COMMENTS; Start 02/03/18 at 11:00 Oxycodone/ Acetaminophen (Percocet 5/325) 1 tab PRN Q4HRS PRN PO MILD PAIN, 1ST CHOICE Last administered on 02/03/18at 22:41; Start 02/03/18 at 11:00 Oxycodone/ Acetaminophen (Percocet 5/325) 2 tab PRN Q4HRS PRN PO MODERATE PAIN , SEVERE PAIN; Start 02/03/18 at 11:00 Morphine Sulfate (Morphine Sulfate) 5 mg PRN Q3HRS PRN IV MODERATE TO SEVERE PAIN Last administered on 02/08/18at 20:17; Start 02/03/18 at 11:15 Docusate Sodium (Colace) 100 mg BID PO Last administered on 02/09/18at 20:52; Start 02/03/18 at 11:00 Ondansetron HCl (Zofran) 4 mg PRN Q6HRS PRN IV NAUESA, 1ST CHOICE Last administered on 02/04/18at 16:22; Start 02/03/18 at 11:00 Enoxaparin Sodium (Lovenox 40mg Syringe) 40 mg Q24H SQ ; Start 02/04/18 at 09:00 ; Stop 02/04/18 at 09:00; Status DC Hydralazine HCl (Apresoline Inj) 10 mg 1X PACU PRN IVP ELEVATED BP, SEE COMMENTS; Start 02/03/18 at 12:15; Stop 02/03/18 at 20:00; Status DC Oxycodone/ Acetaminophen (Percocet 5/325) 1 tab 1X PACU PRN PO PAIN Last administered on 02/03/18at 12:20; Start 02/03/18 at 12:15; Stop 02/03/18 at 20:00; Status DC Albuterol Sulfate (Ventolin Neb Soln) 2.5 mg PRN Q2HR PRN NEB [id number] Last administered on 02/04/18at 04:11; Start 02/03/18 at 15:00 Albuterol/ Ipratropium (Duoneb) 3 ml RTQID NEB Last administered on 02/10/18at 08 :12; Start 02/03/18 at 16:00 Ondansetron HCl (Zofran) 4 mg PRN Q6HRS PRN IV NAUSEA/VOMITING; Start 02/04/18 at 07:00; Stop 02/05/18 at 06:59; Status DC Fentanyl Citrate (Fentanyl 2ml Vial) 25 mcg PRN Q5MIN PRN IV MILD PAIN; Start 02/04/18 at 07:00; Stop 02/05/18 at 06:59; Status DC Fentanyl Citrate (Fentanyl 2ml Vial) 50 mcg PRN Q5MIN PRN IV MODERATE TO SEVERE PAIN; Start 02/04/18 at 07:00; Stop 02/05/18 at 06:59; Status DC Morphine Sulfate (Morphine Sulfate) 1 mg PRN Q10MIN PRN IV SEVERE PAIN; Start 02/04/18 at 07:00; Stop 02/05/18 at 06:59; Status DC Ringer's Solution 1,000 ml @ 30 mls/hr Q24H IV ; Start 02/04/18 at 07:00; Stop 02/04/18 at 18:59; Status DC Lidocaine HCl (Xylocaine-Mpf 1% Vial) 2 ml PRN 1X PRN ID IV START; Start at 07:00; Stop 02/05/18 at 06:59; Status DC Prochlorperazine Edisylate (Compazine) 5 mg PACU PRN PRN IV NAUSEA, MRX1; Start 02/04/18 at 07:00; Stop 02/05/18 at 06:59; Status DC Furosemide (Lasix) 40 mg 1X ONCE IVP Last administered on 02/04/18at 12:47; Start 02/04/18 at 11:45; Stop 02/04/18 at 11:46; Status DC Sodium Chloride 1,000 ml @ 100 mls/hr Q10H IV Last administered on 02/05/18at 21 :05; Start 02/04/18 at 12:00; Stop 02/06/18 at 13:12; Status DC Hydralazine HCl (Apresoline Inj) 10 mg PRN Q4HRS PRN IVP ELEVATED BP, SEE COMMENTS Last administered on 02/10/18at 03:12; Start 02/04/18 at 12:15 Iohexol (Omnipaque 300 Mg/ml) 100 ml STK-MED ONCE .ROUTE ; Start 02/04/18 at 12: 11; Stop 02/04/18 at 12:12; Status DC Cefazolin Sodium/ Dextrose (Ancef 2gm Premix) 2 gm STK-MED ONCE IV ; Start at 07:00; Stop 02/04/18 at 12:31; Status DC Propofol 0 ml @ As Directed STK-MED ONCE IV ; Start 02/04/18 at 13:50; Stop at 13:51; Status DC Lidocaine HCl (Lidocaine Pf 2% Vial) 5 ml STK-MED ONCE .ROUTE ; Start 02/04/18 at 13:50; Stop 02/04/18 at 13:51; Status DC Famotidine (Pepcid Vial) 20 mg STK-MED ONCE .ROUTE ; Start 02/04/18 at 13:50; Stop 02/04/18 at 13:51; Status DC Dexamethasone Sodium Phosphate (Decadron) 20 mg STK-MED ONCE .ROUTE ; Start 02/04 at 13:50; Stop 02/04/18 at 13:52; Status DC Ondansetron HCl (Zofran) 4 mg STK-MED ONCE .ROUTE ; Start 02/04/18 at 13:50; Stop 02/04/18 at 13:52; Status DC Lorazepam (Ativan) 0.5 mg PRN Q8HRS PRN PO ANXIETY / AGITATION; Start 02/04/18 at 15:15 Furosemide (Lasix) 40 mg 1X ONCE IVP Last administered on 02/04/18at 17:00; Start 02/04/18 at 16:45; Stop 02/04/18 at 16:46; Status DC Ciprofloxacin/ Dextrose 200 ml @ 200 mls/hr Q12HR IV Last administered on at 08:10; Start 02/04/18 at 17:30; Stop 02/06/18 at 14:49; Status DC Metronidazole 100 ml @ 100 mls/hr Q12HR IV Last administered on 02/09/18at 20:52 ; Start 02/04/18 at 17:30 Metoclopramide HCl (Reglan Vial) 5 mg PRN Q6HRS PRN IV NAUSEA/VOMITING 2nd CHOICE Last administered on 02/05/18at 13:05; Start 02/04/18 at 17:30; Stop at 15:13; Status DC Lorazepam (Ativan) 0.5 mg PRN Q6HRS PRN IV ANXIETY / AGITATION 1ST CHOICE Last administered on 02/10/18at 08:18; Start 02/04/18 at 20:45 Acetaminophen (Tylenol) 500 mg PRN Q4HRS PRN PO FEVER; Start 02/04/18 at 22:15 Furosemide (Lasix) 40 mg 1X ONCE IVP Last administered on 02/05/18at 01:15; Start 02/05/18 at 01:30; Stop 02/05/18 at 01:31; Status DC Ringer's Solution 1,000 ml @ 75 mls/hr [id number] IV Last administered on at 09:52; Start 02/05/18 at 10:00; Stop 02/06/18 at 13:12; Status DC Iohexol (Omnipaque 300 Mg/ml) 100 ml STK-MED ONCE .ROUTE ; Start 02/05/18 at 10: 10; Stop 02/05/18 at 10:11; Status DC Fentanyl Citrate (Fentanyl 2ml Vial) 100 mcg STK-MED ONCE .ROUTE ; Start at 10:33; Stop 02/05/18 at 10:34; Status DC Ondansetron HCl (Zofran) 4 mg STK-MED ONCE .ROUTE ; Start 02/05/18 at 11:01; Stop 02/05/18 at 11:03; Status DC Iohexol (Omnipaque 300 Mg/ml) 100 ml STK-MED ONCE IV Last administered on at 11:27; Start 02/05/18 at 11:27; Stop 02/05/18 at 11:29; Status DC Haloperidol Lactate (Haldol Inj) 5 mg PRN Q6HRS PRN IVP AGITATION 2ND CHOICE Last administered on 02/10/18 09:00; Start 02/05/18 at 12:30 Ciprofloxacin/ Dextrose 200 ml @ 200 mls/hr Q24H IV Last administered on at 09:00; Start 02/07/18 at 08:00 Magnesium Sulfate 50 ml @ 25 mls/hr PRN DAILY PRN IV for Mag < 1.7 on am labs; Start 02/07/18 at 09:00 Darbepoetin Rob (Aranesp) 60 mcg [id number] SQ Last administered on 02/07/18at 21: 30; Start 02/07/18 at 21:00 Lactobacillus Rhamnosus (Culturelle) 1 cap BID PO Last administered on at 20:52; Start 02/08/18 at 21:00 Sodium Chloride 1,000 ml @ 125 mls/hr Q8H IV Last administered on 02/09/18at 04: 39; Start 02/08/18 at 10:00; Stop 02/09/18 at 10:23; Status DC Furosemide (Lasix) 40 mg 1X ONCE IVP Last administered on 02/08/18at 12:07; Start 02/08/18 at 11:30; Stop 02/08/18 at 11:31; Status DC Amino Acids/ Glycerin/ Electrolytes 1,000 ml @ 75 mls/hr [id number] IV Last administered on 02/10/18at 05:43; Start 02/08/18 at 12:00 Sodium Bicarbonate (Sodium Bicarb Adult 8.4% Syr) 50 meq 1X ONCE IV Last administered on 02/08/18at 12:08; Start 02/08/18 at 12:30; Stop 02/08/18 at 12:31; Status DC Albuterol/ Ipratropium (Duoneb) 3 ml STK-MED ONCE .ROUTE ; Start 02/08/18 at 19: 39; Stop 02/08/18 at 19:40; Status DC Neostigmine Methylsulfate (Neostigmine Methylsulfate) 5 mg STK-MED ONCE .ROUTE ; Start 02/06/18 at 12:00; Stop 02/09/18 at 06:52; Status DC Lidocaine HCl (Lidocaine HCl 2% Abboject) 100 mg STK-MED ONCE .ROUTE ; Start 02/06/18 at 12:00; Stop 02/09/18 at 06:52; Status DC Phenylephrine HCl (PHENYLEPHRINE in 0.9% NACL PF) 2 mg STK-MED ONCE IV ; Start 02/06/18 at 12:00; Stop 02/09/18 at 06:52; Status DC Propofol (Diprivan) 200 mg STK-MED ONCE IV ; Start 02/06/18 at 12:00; Stop at 06:52; Status DC Glycopyrrolate (Robinul) 1 mg STK-MED ONCE .ROUTE ; Start 02/06/18 at 12:00; Stop 02/09/18 at 06:52; Status DC Dexamethasone Sodium Phosphate (Decadron) 20 mg STK-MED ONCE .ROUTE ; Start 02/06 at 12:00; Stop 02/09/18 at 06:52; Status DC Metoprolol Tartrate (Lopressor Vial) 5 mg PRN Q6HRS PRN IVP TACHYCARDIA; Start 02/09/18 at 12:45 Quetiapine Fumarate (SEROquel) 50 mg QHS PO Last administered on 02/09/18at 20:53 ; Start 02/09/18 at 21:00 Active Scripts Active Reported Ferrous Sulfate 325 Mg Tablet 1 Tab PO DAILY Super B Complex-Vitamin C (B Complex With Vitamin C) 1 Each Tablet 1 Each PO Warfarin Sodium 5 Mg Tablet 7.5 Mg PO QTUTHSA Amiodarone Hcl 200 Mg Tablet 100 Mg PO DAILY Furosemide 20 Mg Tablet 10 Mg PO QMWF Metoprolol Succinate ( Xl ) (Metoprolol Succinate) 25 Mg Tab.er.24h 1 Tab PO QPM Calcitriol 0.25 Mcg Capsule 0.25 Mcg PO QM-W-F Warfarin Sodium 5 Mg Tablet 5 Mg PO QMWF Loratadine 10 Mg Tablet 10 Mg PO QHS Tamsulosin Hcl 0.4 Mg Cap.er.24h 0.4 Mg PO QHS Atorvastatin Calcium 10 Mg Tablet 10 Mg PO HS Duoneb 0.5-3(2.5) Mg/3 Ml (Albuterol/Ipratropium) 3 Ml Ampul.neb 3 Ml IH TID PRN Flonase (Fluticasone Propionate) 16 Gm [place].susp 2 [place] NS BID Vitals/I & O Vital Sign - Last 24 Hours 02/09/18 02/09/18 02/09/18 02/09/18 11:00 11:27 12:00 12:00 Temp 98.5 98.5 Pulse 124 118 Resp 23 31 B/P (MAP) 177/83 (114) 147/87 (107) Pulse Ox 93 94 O2 Delivery Nasal Cannula Nasal Cannula Nasal Cannula Nasal Cannula O2 Flow Rate 4.0 4.0 4.0 4.0 02/09/18 02/09/18 02/09/18 02/09/18 12:00 13:00 14:00 15:00 Pulse 101 96 90 Resp 19 30 26 B/P (MAP) 156/75 (102) 158/75 (102) 162/70 (100) Pulse Ox 95 95 95 O2 Delivery Nasal Cannula Nasal Cannula Nasal Cannula O2 Flow Rate 4.0 4.0 4.0 4.0 02/09/18 02/09/18 02/09/18 02/09/18 15:43 16:00 16:00 16:00 Temp 98.7 98.7 Pulse 89 Resp 28 B/P (MAP) 167/72 (103) Pulse Ox 96 95 O2 Delivery Nasal Cannula Nasal Cannula Nasal Cannula O2 Flow Rate 4.0 4.0 4.0 4.0 02/09/18 02/09/18 02/09/18 02/09/18 17:00 18:00 19:00 19:33 Temp 98.7 98.7 Pulse 89 79 78 Resp 26 31 36 B/P (MAP) 179/92 (121) 154/95 (114) 167/84 (111) Pulse Ox 95 91 94 96 O2 Delivery Nasal Cannula Nasal Cannula Nasal Cannula Nasal Cannula O2 Flow Rate 4.0 4.0 4.0 4.0 02/09/18 02/09/18 02/09/18 02/09/18 20:00 20:00 20:00 21:00 Temp 98.6 98.6 Pulse 81 81 Resp 30 34 B/P (MAP) 180/80 (113) 169/87 (114) Pulse Ox 94 96 O2 Delivery Nasal Cannula Nasal Cannula Nasal Cannula O2 Flow Rate 4.0 4.0 4.0 4.0 02/09/18 02/09/18 02/09/18 02/10/18 22:00 22:31 23:00 00:00 Pulse 83 83 87 Resp 35 37 B/P (MAP) 171/69 (103) 171/69 158/80 (106) Pulse Ox 91 93 O2 Delivery Nasal Cannula Nasal Cannula O2 Flow Rate 4.0 4.0 4.0 02/10/18 02/10/18 02/10/18 02/10/18 00:00 01:00 02:00 03:00 Pulse 78 84 95 Resp 33 30 43 B/P (MAP) 166/73 (104) 168/96 (120) 194/65 (108) Pulse Ox 94 93 94 O2 Delivery Bi-pap Nasal Cannula Nasal Cannula Nasal Cannula O2 Flow Rate 40.0 4.0 4.0 4.0 02/10/18 02/10/18 02/10/18 02/10/18 03:12 04:00 04:00 04:00 Temp 98.6 98.6 Pulse 95 85 Resp 42 B/P (MAP) 194/65 192/71 (111) Pulse Ox 98 O2 Delivery Bi-pap BiPAP/CPAP O2 Flow Rate 4.0 40.0 02/10/18 02/10/18 02/10/18 02/10/18 05:00 06:00 07:00 08:00 Temp 98.0 98.0 Pulse 96 96 111 103 Resp 35 39 36 35 B/P (MAP) 191/77 (115) 196/75 (115) 184/67 (106) 152/67 (95) Pulse Ox 94 95 93 93 O2 Delivery Nasal Cannula Nasal Cannula Nasal Cannula Nasal Cannula O2 Flow Rate 4.0 4.0 4.0 4.0 02/10/18 08:14 Pulse Ox 96 O2 Delivery Nasal Cannula O2 Flow Rate 4.0 Intake and Output 02/09/18 02/09/18 02/10/18 14:59 22:59 06:59 Intake Total 300 ml 755 ml Output Total 1175 ml 805 ml 285 ml Balance -875 ml -50 ml -285 ml JOSEP MOSQUERA MD Feb 10, 2018 10:06
--- NOTE | 2018-02-10 10:26 | PDOC ---
PULMONARY PROGRESS NOTES Subjective REMAINS CONFUSED, Vitals Vital Signs Date Time Temp Pulse Resp B/P (MAP) Pulse Ox O2 Delivery O2 Flow Rate FiO2 02/10/18 08:14 96 Nasal Cannula 4.0 02/10/18 08:00 103 35 152/67 (95) 02/10/18 07:00 98.0 98.0 General: No acute distress, Confused Lungs: Clear Cardiovascular: S1, S2 Abdomen: Soft, Non-tender, Other (DISTENDED) Extremities: No Edema Skin: Warm Labs Laboratory Tests Test 02/08/18 12:15 02/08/18 15:25 02/09/18 04:15 02/09/18 07:30 Lactic Acid Level 0.9 mmol/L (0.4-2.0) Sodium Level 146 mmol/L (136-145) 148 mmol/L (136-145) Potassium Level 4.8 mmol/L (3.5-5.1) 4.7 mmol/L (3.5-5.1) Chloride Level 112 mmol/L (98-107) 114 mmol/L (98-107) Carbon Dioxide Level 26 mmol/L (21-32) 28 mmol/L (21-32) Anion Gap 8 (6-14) 6 (6-14) Blood Urea Nitrogen 73 mg/dL (8-26) 72 mg/dL (8-26) Creatinine 2.0 mg/dL (0.7-1.3) 1.8 mg/dL (0.7-1.3) Estimated GFR (Cockcroft-Gault) 32.6 36.9 Glucose Level 120 mg/dL (70-99) 115 mg/dL (70-99) Calcium Level 10.7 mg/dL (8.5-10.1) 10.3 mg/dL (8.5-10.1) BUN/Creatinine Ratio 40 (6-20) Phosphorus Level 2.8 mg/dL (2.6-4.7) Magnesium Level 2.0 mg/dL (1.8-2.4) Total Bilirubin 1.4 mg/dL (0.2-1.0) Aspartate Amino Transf (AST/SGOT) 19 U/L (15-37) Alanine Aminotransferase (ALT/SGPT) 16 U/L (16-63) Alkaline Phosphatase 64 U/L (46-116) Total Protein 5.4 g/dL (6.4-8.2) Albumin 1.9 g/dL (3.4-5.0) Albumin/Globulin Ratio 0.5 (1.0-1.7) Lipase 140 U/L (73-393) Nasal Screen MRSA (PCR) Negative (Negative) Test 02/10/18 04:45 Erythrocyte Sedimentation Rate 60 (0-15) Sodium Level 148 mmol/L (136-145) Potassium Level 4.4 mmol/L (3.5-5.1) Chloride Level 115 mmol/L (98-107) Carbon Dioxide Level 27 mmol/L (21-32) Anion Gap 6 (6-14) Blood Urea Nitrogen 63 mg/dL (8-26) Creatinine 1.4 mg/dL (0.7-1.3) Estimated GFR (Cockcroft-Gault) 49.3 Glucose Level 108 mg/dL (70-99) Calcium Level 10.6 mg/dL (8.5-10.1) Phosphorus Level 2.1 mg/dL (2.6-4.7) Magnesium Level 1.7 mg/dL (1.8-2.4) Ammonia 11 mcmol/L (11-34) Albumin 2.1 g/dL (3.4-5.0) Vitamin B12 Level 717 pg/mL (247-911) 25-Hydroxy Vitamin D Total 31.9 ng/mL (30-100) Serum Folate 8.25 ng/ml (3.2-20.0) Thyroid Stimulating Hormone (TSH) 0.748 uIU/mL (0.358-3.74) Laboratory Tests Test 02/10/18 04:45 Erythrocyte Sedimentation Rate 60 (0-15) Sodium Level 148 mmol/L (136-145) Potassium Level 4.4 mmol/L (3.5-5.1) Chloride Level 115 mmol/L (98-107) Carbon Dioxide Level 27 mmol/L (21-32) Anion Gap 6 (6-14) Blood Urea Nitrogen 63 mg/dL (8-26) Creatinine 1.4 mg/dL (0.7-1.3) Estimated GFR (Cockcroft-Gault) 49.3 Glucose Level 108 mg/dL (70-99) Calcium Level 10.6 mg/dL (8.5-10.1) Phosphorus Level 2.1 mg/dL (2.6-4.7) Magnesium Level 1.7 mg/dL (1.8-2.4) Ammonia 11 mcmol/L (11-34) Albumin 2.1 g/dL (3.4-5.0) Vitamin B12 Level 717 pg/mL (247-911) 25-Hydroxy Vitamin D Total 31.9 ng/mL (30-100) Serum Folate 8.25 ng/ml (3.2-20.0) Thyroid Stimulating Hormone (TSH) 0.748 uIU/mL (0.358-3.74) Medications Active Scripts Medications Dose Route/Sig Max Daily Dose Days Date Category Ferrous Sulfate 325 Mg Tablet 1 Tab PO DAILY 01/28/18 Reported Super B Complex-Vitamin C (B Complex With Vitamin C) 1 Each Tablet 1 Each PO 12/04/17 Reported Warfarin Sodium 5 Mg Tablet 7.5 Mg PO QTUTHSA 06/10/17 Reported Amiodarone Hcl 200 Mg Tablet 100 Mg PO DAILY 06/10/17 Reported Furosemide 20 Mg Tablet 10 Mg PO QMWF 06/10/17 Reported Metoprolol Succinate ( Xl ) (Metoprolol Succinate) 25 Mg Tab.er.24h 1 Tab PO QPM 11/13/16 Reported Calcitriol 0.25 Mcg Capsule 0.25 Mcg PO QM-W-F 05/24/16 Reported Warfarin Sodium 5 Mg Tablet 5 Mg PO QMWF 05/24/16 Reported Loratadine 10 Mg Tablet 10 Mg PO QHS 10/16/14 Reported Tamsulosin Hcl 0.4 Mg Cap.er.24h 0.4 Mg PO QHS 10/16/14 Reported Atorvastatin Calcium 10 Mg Tablet 10 Mg PO HS 10/16/14 Reported Duoneb 0.5-3(2.5) Mg/3 Ml (Albuterol/Ipratropium) 3 Ml Ampul.neb 3 Ml IH TID PRN 07/24/14 Reported Flonase (Fluticasone Propionate) 16 Gm [place].susp 2 [place] NS BID 01/06/14 Reported Comments CXR REVIEWED 02/09 ? Right basal atelectasis Impression . 1. Acute/Chronic resp failure, expected status post laparoscopic cholecystectomy. 02/03 2. Chronic obstructive pulmonary disease of the chronic bronchitic type. 3. Chronic atrial fibrillation. 4. Obstructive sleep apnea. 5. Common Bile duct stone S/P ERCP 02/05 6. JAYDON/CKD 7. 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 Postoperative delirium. no signs of sepsis, normal lactic acid level, No decompensated respiratory acidosis 02/05 ERCP with sphincterotomy/stone extraction Meds MAC/GOETT Pre-op dx jaundice/abnl IOC/choledocholithiasis Post-op dx choledocholithiasis s/p sphincterotomy/stone extraction large khalida-ampullary diverticulum Plan serial labs monitor for complications possibly advance diet in am if no adverse events Plan . CONTINUE NASAL CANULA FOLLOW NEUROLOGY REC CT HEAD ORDERED TODAY REPEAT ABG ABX FOLLOW SPUTUM CULTURE RESULT P CONTINUE PRN BIPAP CONTINUE POST OP CARE NO SIG HYPOXIA PRN HALDOL/ ATIVAN D/W WITH RN D/W ALIYAH ARMANDO MD Feb 10, 2018 10:26
--- NOTE | 2018-02-10 10:44 | RAD ---
CT head without intravenous contrast History: Altered mental status. Comparison: CT head December 07, 2017. Technique: Axial images are obtained of the head from the skull base through the vertex without IV contrast. Exposure: One or more of the following individualized dose reduction techniques were utilized for this examination: 1. Automated exposure control 2. Adjustment of the mA and/or kV according to patient size 3. Use of iterative reconstruction technique Findings: There is motion artifact at many levels which could obscure subtle abnormalities. The ventricles are appropriate in size, shape, and location for the patient's age. No obvious intracranial mass, mass-effect, midline shift, hemorrhage or obvious acute infarction is identified. Basilar cisterns are patent. Patchy, nonspecific white matter low-attenuation is seen, probably from chronic microvascular ischemic disease. Bone windows demonstrate no acute calvarial abnormality. Mild ethmoid mucosal disease is suspected. Impression: Limited by motion. No acute intracranial process. Please note that CT can be relatively insensitive to acute ischemic infarction for up to 24 hours after symptom onset. Electronically signed by: Channing Grewal MD (02/10/2018 10:40 AM) [facility]
[2018-02-10 11:25] LABS: BASE EXCESS ABG -1 mmol/L (-3-3); HCO3 ABG 23 mmol/L (21-28); PCO2 ABG 37 mmHg (35-46); PO2 ABG 84 mmHg (65-108); SAT O2 ABG 96 % (92-99)
[2018-02-10 11:27] LABS: FIO2 ABG 40
--- NOTE | 2018-02-10 13:50 | PDOC ---
SURGICAL PROGRESS NOTE Subjective Pt minimally responsive, appears comfortable Vital Signs Vital Signs Date Time Temp Pulse Resp B/P (MAP) Pulse Ox O2 Delivery O2 Flow Rate FiO2 02/10/18 11:33 96 Nasal Cannula 4.0 02/10/18 10:00 90 40 150/85 (106) 02/10/18 07:00 98.0 98.0 I&O Intake and Output 02/10/18 07:00 Intake Total 1055 ml Output Total 2115 ml Balance -1060 ml IV Total 1055 ml Output Urine Total 2115 ml # Voids 55 General: No acute distress Abdomen: Soft, No tenderness Labs Laboratory Tests Test 02/08/18 15:25 02/09/18 04:15 02/09/18 07:30 02/10/18 04:45 Sodium Level 146 mmol/L (136-145) 148 mmol/L (136-145) 148 mmol/L (136-145) Potassium Level 4.8 mmol/L (3.5-5.1) 4.7 mmol/L (3.5-5.1) 4.4 mmol/L (3.5-5.1) Chloride Level 112 mmol/L (98-107) 114 mmol/L (98-107) 115 mmol/L (98-107) Carbon Dioxide Level 26 mmol/L (21-32) 28 mmol/L (21-32) 27 mmol/L (21-32) Anion Gap 8 (6-14) 6 (6-14) 6 (6-14) Blood Urea Nitrogen 73 mg/dL (8-26) 72 mg/dL (8-26) 63 mg/dL (8-26) Creatinine 2.0 mg/dL (0.7-1.3) 1.8 mg/dL (0.7-1.3) 1.4 mg/dL (0.7-1.3) Estimated GFR (Cockcroft-Gault) 32.6 36.9 49.3 Glucose Level 120 mg/dL (70-99) 115 mg/dL (70-99) 108 mg/dL (70-99) Calcium Level 10.7 mg/dL (8.5-10.1) 10.3 mg/dL (8.5-10.1) 10.6 mg/dL (8.5-10.1) BUN/Creatinine Ratio 40 (6-20) Phosphorus Level 2.8 mg/dL (2.6-4.7) 2.1 mg/dL (2.6-4.7) Magnesium Level 2.0 mg/dL (1.8-2.4) 1.7 mg/dL (1.8-2.4) Total Bilirubin 1.4 mg/dL (0.2-1.0) Aspartate Amino Transf (AST/SGOT) 19 U/L (15-37) Alanine Aminotransferase (ALT/SGPT) 16 U/L (16-63) Alkaline Phosphatase 64 U/L (46-116) Total Protein 5.4 g/dL (6.4-8.2) Albumin 1.9 g/dL (3.4-5.0) 2.1 g/dL (3.4-5.0) Albumin/Globulin Ratio 0.5 (1.0-1.7) Lipase 140 U/L (73-393) Nasal Screen MRSA (PCR) Negative (Negative) Erythrocyte Sedimentation Rate 60 (0-15) Ammonia 11 mcmol/L (11-34) Vitamin B12 Level 717 pg/mL (247-911) 25-Hydroxy Vitamin D Total 31.9 ng/mL (30-100) Serum Folate 8.25 ng/ml (3.2-20.0) Thyroid Stimulating Hormone (TSH) 0.748 uIU/mL (0.358-3.74) Test 02/10/18 11:20 O2 Saturation 96 % (92-99) Arterial Blood pH 7.41 (7.35-7.45) Arterial Blood pCO2 at Patient Temp 37 mmHg (35-46) Arterial Blood pO2 at Patient Temp 84 mmHg (65-108) Arterial Blood HCO3 23 mmol/L (21-28) Arterial Blood Base Excess -1 mmol/L (-3-3) FiO2 40 Laboratory Tests Test 02/10/18 04:45 02/10/18 11:20 Erythrocyte Sedimentation Rate 60 (0-15) Sodium Level 148 mmol/L (136-145) Potassium Level 4.4 mmol/L (3.5-5.1) Chloride Level 115 mmol/L (98-107) Carbon Dioxide Level 27 mmol/L (21-32) Anion Gap 6 (6-14) Blood Urea Nitrogen 63 mg/dL (8-26) Creatinine 1.4 mg/dL (0.7-1.3) Estimated GFR (Cockcroft-Gault) 49.3 Glucose Level 108 mg/dL (70-99) Calcium Level 10.6 mg/dL (8.5-10.1) Phosphorus Level 2.1 mg/dL (2.6-4.7) Magnesium Level 1.7 mg/dL (1.8-2.4) Ammonia 11 mcmol/L (11-34) Albumin 2.1 g/dL (3.4-5.0) Vitamin B12 Level 717 pg/mL (247-911) 25-Hydroxy Vitamin D Total 31.9 ng/mL (30-100) Serum Folate 8.25 ng/ml (3.2-20.0) Thyroid Stimulating Hormone (TSH) 0.748 uIU/mL (0.358-3.74) O2 Saturation 96 % (92-99) Arterial Blood pH 7.41 (7.35-7.45) Arterial Blood pCO2 at Patient Temp 37 mmHg (35-46) Arterial Blood pO2 at Patient Temp 84 mmHg (65-108) Arterial Blood HCO3 23 mmol/L (21-28) Arterial Blood Base Excess -1 mmol/L (-3-3) FiO2 40 Problem List s/p lap vilma cont supportive care appreciate neuro d/w pt's family JUNIE CARBONE MD Feb 10, 2018 13:50
[2018-02-10] MEDS: IV DEXTROSE 5 %-0.45 % NACL 1,000 ML IV SCH (14:24)
[2018-02-10] MEDS: QUEtiapine 25 MG TABLET. PO SCH ×2 (15:00→21:00)
[2018-02-10] MEDS: MORPHINE SULFATE 10 MG/ML VIAL. IV PRN (17:55)
[2018-02-11] MEDS: IV DEXTROSE 5 %-0.45 % NACL 1,000 ML IV SCH (03:35)
[2018-02-11] MEDS: ALBUTEROL SULFATE 2.5 MG/3 ML NEBU. NEB PRN (05:54)
[2018-02-11] MEDS: AMINO AC 3%/ELECTROLYTE/GLYCER 1,000 ML IV SCH (06:40)
[2018-02-11 07:00] VITALS: BP 166/82
[2018-02-11] MEDS: IPRATRPIUM/ALBUTEROL 0.5/2.5MG 3 ML NEBU. NEB SCH ×4 (07:34→20:20)
[2018-02-11] MEDS: CIPROFLOXACIN 400MG PREMIX 200 ML IV SCH (08:59)
[2018-02-11] MEDS: QUEtiapine 25 MG TABLET. PO SCH ×2 (09:00→20:28)
[2018-02-11] MEDS: LACTOBACILLUS RHAMNOSUS GG 1 CAPSULE. PO SCH ×2 (09:00→20:28)
[2018-02-11] MEDS: DOCUSATE SODIUM 100 MG CAPSULE. PO SCH ×2 (09:00→20:28)
[2018-02-11 09:14] LABS: ALBUMIN 2.1 g/dL (3.4-5.0); CALCIUM 10.5 mg/dL (8.5-10.1); CREATININE 1.4 mg/dL (0.7-1.3); GFR 49.3; MAGNESIUM 1.8 mg/dL (1.8-2.4); PHOSPHORUS 2.5 mg/dL (2.6-4.7)
--- NOTE | 2018-02-11 10:37 | PDOC ---
SUBJECTIVE ROS On O2 4 lts by NC ,Less Confused today, answering appropriately, wants to eat agrees that he is better since moved out of ICU OBJECTIVE Vital Signs Vital Signs Date Time Temp Pulse Resp B/P (MAP) Pulse Ox O2 Delivery O2 Flow Rate FiO2 02/11/18 07:34 96 Nasal Cannula 4.0 02/11/18 07:00 98.7 86 30 166/82 (110) 98.7 I & 0 Intake and Output 02/11/18 07:00 Intake Total 0 ml Output Total 1295 ml Balance -1295 ml Intake Oral 0 ml Output Urine Total 1295 ml PHYSICAL EXAM Physical Exam GEN: On O2 by NC, NAD HEENT-On O2 BY mo neck- supple LUNGS: CTAB ant HEART: RRR, no murmurs ABD: s/p GB surgery, obese EXTREMITY: No edema SKIN: No rashes, NEURO/PSYCH: More alert - Rodriguez removed DIAGNOSIS/ASSESSMENT Assessment & Plan ARF/ ? ATN : Good UOP Improving Renal function- back to baseline Confusion not due to Uremia Current fluid and E-lyte status does not necessitate emergent need for dialysis. 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 See orders for changes. HypoALbuminemia - As per GS /Human Resources Specialist Holding procalAmine DW and RN at bed side CxR- 1. Mild cardiomegaly. 2. Minimal right basilar atelectasis. COMMENT/RELEVANT DATA Meds Current Medications Medications (Trade) Dose Ordered Sig/Patricia Start Time Stop Time Status Last Admin Dose Admin Acetaminophen (Tylenol) 500 mg PRN Q4HRS PRN 02/04/18 22:15 Albuterol Sulfate (Ventolin Neb Soln) 2.5 mg PRN Q2HR PRN 02/03/18 15:00 02/11/18 05:54 2.5 MG Albuterol/ Ipratropium (Duoneb) 3 ml STK-MED ONCE 02/08/18 19:39 02/08/18 19:40 DC Amino Acids/ Glycerin/ Electrolytes 1,000 ml @ 75 mls/hr [id number] 02/08/18 12:00 02/10/18 05:43 75 MLS/HR Bupivacaine HCl/ Epinephrine Bitart (Marcaine-Epi 0.5%-1:[id number]) 50 ml STK-MED ONCE 02/03/18 07:56 02/03/18 08:57 DC 02/03/18 09:49 8 ML Cefazolin Sodium/ Dextrose (Ancef 2gm Premix) 2 gm STK-MED ONCE 02/03/18 07:00 02/04/18 12:31 DC Ciprofloxacin/ Dextrose 200 ml @ 200 mls/hr Q24H 02/07/18 08:00 02/11/18 08:59 200 MLS/HR Darbepoetin Rob (Aranesp) 60 mcg [id number] 02/07/18 21:00 02/07/18 21:30 60 MCG Desflurane (Suprane) 60 ml STK-MED ONCE 02/03/18 08:09 02/03/18 08:10 DC Dexamethasone Sodium Phosphate (Decadron) 20 mg STK-MED ONCE 02/06/18 12:00 02/09/18 06:52 DC Dextrose (Dextrose 50%-Water Syringe) 12.5 gm PRN Q15MIN PRN 02/03/18 11:00 Dextrose/Sodium Chloride 1,000 ml @ 75 mls/hr [id number] 02/10/18 14:15 02/11/18 03:35 75 MLS/HR Diphenhydramine HCl (Benadryl) 25 mg PRN Q6HRS PRN 02/03/18 11:00 02/09/18 22:30 25 MG Docusate Sodium (Colace) 100 mg BID 02/03/18 11:00 02/09/18 20:52 100 MG Enoxaparin Sodium (Lovenox 40mg Syringe) 40 mg Q24H 02/04/18 09:00 02/04/18 09:00 DC Ephedrine Sulfate (ePHEDrine PF IN SALINE SYRINGE) 50 mg STK-MED ONCE 02/03/18 08:15 02/03/18 08:16 DC Famotidine (Pepcid Vial) 20 mg STK-MED ONCE 02/04/18 13:50 02/04/18 13:51 DC Fentanyl Citrate (Fentanyl 2ml Vial) 100 mcg STK-MED ONCE 02/05/18 10:33 02/05/18 10:34 DC Furosemide (Lasix) 40 mg 1X ONCE 02/08/18 11:30 02/08/18 11:31 DC 02/08/18 12:07 40 MG Glycopyrrolate (Robinul) 1 mg STK-MED ONCE 02/06/18 12:00 02/09/18 06:52 DC Haloperidol Lactate (Haldol Inj) 5 mg PRN Q6HRS PRN 02/05/18 12:30 02/10/18 09:00 5 MG Hydralazine HCl (Apresoline Inj) 10 mg PRN Q4HRS PRN 02/04/18 12:15 02/10/18 03:12 10 MG Iohexol (Omnipaque 300 Mg/ml) 100 ml STK-MED ONCE 02/05/18 11:27 02/05/18 11:29 DC 02/05/18 11:27 30 ML Ketorolac Tromethamine (Toradol For Or Only) 30 mg STK-MED ONCE 02/03/18 08:09 02/03/18 08:10 DC Lactobacillus Rhamnosus (Culturelle) 1 cap BID 02/08/18 21:00 02/09/18 20:52 1 CAP Lidocaine HCl (Lidocaine HCl 2% Abboject) 100 mg STK-MED ONCE 02/06/18 12:00 02/09/18 06:52 DC Lidocaine HCl (Lidocaine Pf 2% Vial) 5 ml STK-MED ONCE 02/04/18 13:50 02/04/18 13:51 DC Lidocaine HCl (Xylocaine-Mpf 1% Vial) 2 ml PRN 1X PRN 02/04/18 07:00 02/05/18 06:59 DC Lorazepam (Ativan) 0.5 mg PRN Q6HRS PRN 02/04/18 20:45 02/10/18 08:18 0.5 MG Magnesium Sulfate 50 ml @ 25 mls/hr PRN DAILY PRN 02/07/18 09:00 Metoclopramide HCl (Reglan Vial) 5 mg PRN Q6HRS PRN 02/04/18 17:30 02/09/18 15:13 DC 02/05/18 13:05 5 MG Metoprolol Tartrate (Lopressor Vial) 5 mg PRN Q6HRS PRN 02/09/18 12:45 Metronidazole 100 ml @ 100 mls/hr Q12H 02/10/18 14:00 02/11/18 02:01 100 MLS/HR Morphine Sulfate (Morphine Sulfate) 1 mg PRN Q10MIN PRN 02/04/18 07:00 02/05/18 06:59 DC Neostigmine Methylsulfate (Neostigmine Methylsulfate) 5 mg STK-MED ONCE 02/06/18 12:00 02/09/18 06:52 DC Ondansetron HCl (Zofran) 4 mg STK-MED ONCE 02/05/18 11:01 02/05/18 11:03 DC Oxycodone/ Acetaminophen (Percocet 5/325) 1 tab 1X PACU PRN 02/03/18 12:15 02/03/18 20:00 DC 02/03/18 12:20 1 TAB Phenylephrine HCl (PHENYLEPHRINE in 0.9% NACL PF) 2 mg STK-MED ONCE 02/06/18 12:00 02/09/18 06:52 DC Potassium Chloride/Sodium Chloride 1,000 ml @ 75 mls/hr [id number] 02/03/18 10:46 02/04/18 11:37 DC 02/03/18 23:55 75 MLS/HR Prochlorperazine Edisylate (Compazine) 5 mg PACU PRN PRN 02/04/18 07:00 02/05/18 06:59 DC Propofol (Diprivan) 200 mg STK-MED ONCE 02/06/18 12:00 02/09/18 06:52 DC Quetiapine Fumarate (SEROquel) 50 mg BID 02/10/18 15:00 Ringer's Solution 1,000 ml @ 75 mls/hr [id number] 02/05/18 10:00 02/06/18 13:12 DC 02/05/18 09:52 75 MLS/HR Rocuronium [place] (Zemuron) 50 mg STK-MED ONCE 02/03/18 08:09 02/03/18 08:10 DC Sodium Bicarbonate (Sodium Bicarb Adult 8.4% Syr) 50 meq 1X ONCE 02/08/18 12:30 02/08/18 12:31 DC 02/08/18 12:08 50 MEQ Sodium Chloride 1,000 ml @ 125 mls/hr Q8H 02/08/18 10:00 02/09/18 10:23 DC 02/09/18 04:39 125 MLS/HR Sodium Chloride (Normal Saline Flush) 3 ml QSHIFT PRN 02/03/18 11:00 Lab Laboratory Tests Test 02/10/18 11:20 02/11/18 08:42 O2 Saturation 96 % (92-99) Arterial Blood pH 7.41 (7.35-7.45) Arterial Blood pCO2 at Patient Temp 37 mmHg (35-46) Arterial Blood pO2 at Patient Temp 84 mmHg (65-108) Arterial Blood HCO3 23 mmol/L (21-28) Arterial Blood Base Excess -1 mmol/L (-3-3) FiO2 40 Sodium Level 150 mmol/L (136-145) Potassium Level 4.0 mmol/L (3.5-5.1) Chloride Level 117 mmol/L (98-107) Carbon Dioxide Level 28 mmol/L (21-32) Anion Gap 5 (6-14) Blood Urea Nitrogen 56 mg/dL (8-26) Creatinine 1.4 mg/dL (0.7-1.3) Estimated GFR (Cockcroft-Gault) 49.3 Glucose Level 128 mg/dL (70-99) Calcium Level 10.5 mg/dL (8.5-10.1) Phosphorus Level 2.5 mg/dL (2.6-4.7) Magnesium Level 1.8 mg/dL (1.8-2.4) Albumin 2.1 g/dL (3.4-5.0) Results All relevant outside records, renal labs, imaging studies, telemetry/EKG's were reviewed. KIERSTEN BRODERICK MD Feb 11, 2018 10:37
[2018-02-11 11:00] VITALS: BP 142/72
[2018-02-11] MEDS: IV DEXTROSE 5% 1,000 ML IV SCH ×2 (11:06→20:34)
--- NOTE | 2018-02-11 11:07 | PDOC ---
PULMONARY PROGRESS NOTES Subjective improving confusion Vitals Vital Signs Date Time Temp Pulse Resp B/P (MAP) Pulse Ox O2 Delivery O2 Flow Rate FiO2 02/11/18 07:34 96 Nasal Cannula 4.0 02/11/18 07:00 98.7 86 30 166/82 (110) 98.7 General: No acute distress Lungs: Clear Cardiovascular: S1, S2 Abdomen: Soft, Non-tender, Other (DISTENDED) Extremities: No Edema Skin: Warm Labs Laboratory Tests Test 02/10/18 04:45 02/10/18 11:20 02/11/18 08:42 Erythrocyte Sedimentation Rate 60 (0-15) Sodium Level 148 mmol/L (136-145) 150 mmol/L (136-145) Potassium Level 4.4 mmol/L (3.5-5.1) 4.0 mmol/L (3.5-5.1) Chloride Level 115 mmol/L (98-107) 117 mmol/L (98-107) Carbon Dioxide Level 27 mmol/L (21-32) 28 mmol/L (21-32) Anion Gap 6 (6-14) 5 (6-14) Blood Urea Nitrogen 63 mg/dL (8-26) 56 mg/dL (8-26) Creatinine 1.4 mg/dL (0.7-1.3) 1.4 mg/dL (0.7-1.3) Estimated GFR (Cockcroft-Gault) 49.3 49.3 Glucose Level 108 mg/dL (70-99) 128 mg/dL (70-99) Calcium Level 10.6 mg/dL (8.5-10.1) 10.5 mg/dL (8.5-10.1) Phosphorus Level 2.1 mg/dL (2.6-4.7) 2.5 mg/dL (2.6-4.7) Magnesium Level 1.7 mg/dL (1.8-2.4) 1.8 mg/dL (1.8-2.4) Ammonia 11 mcmol/L (11-34) Albumin 2.1 g/dL (3.4-5.0) 2.1 g/dL (3.4-5.0) Vitamin B12 Level 717 pg/mL (247-911) 25-Hydroxy Vitamin D Total 31.9 ng/mL (30-100) Serum Folate 8.25 ng/ml (3.2-20.0) Thyroid Stimulating Hormone (TSH) 0.748 uIU/mL (0.358-3.74) O2 Saturation 96 % (92-99) Arterial Blood pH 7.41 (7.35-7.45) Arterial Blood pCO2 at Patient Temp 37 mmHg (35-46) Arterial Blood pO2 at Patient Temp 84 mmHg (65-108) Arterial Blood HCO3 23 mmol/L (21-28) Arterial Blood Base Excess -1 mmol/L (-3-3) FiO2 40 Laboratory Tests Test 02/10/18 11:20 02/11/18 08:42 O2 Saturation 96 % (92-99) Arterial Blood pH 7.41 (7.35-7.45) Arterial Blood pCO2 at Patient Temp 37 mmHg (35-46) Arterial Blood pO2 at Patient Temp 84 mmHg (65-108) Arterial Blood HCO3 23 mmol/L (21-28) Arterial Blood Base Excess -1 mmol/L (-3-3) FiO2 40 Sodium Level 150 mmol/L (136-145) Potassium Level 4.0 mmol/L (3.5-5.1) Chloride Level 117 mmol/L (98-107) Carbon Dioxide Level 28 mmol/L (21-32) Anion Gap 5 (6-14) Blood Urea Nitrogen 56 mg/dL (8-26) Creatinine 1.4 mg/dL (0.7-1.3) Estimated GFR (Cockcroft-Gault) 49.3 Glucose Level 128 mg/dL (70-99) Calcium Level 10.5 mg/dL (8.5-10.1) Phosphorus Level 2.5 mg/dL (2.6-4.7) Magnesium Level 1.8 mg/dL (1.8-2.4) Albumin 2.1 g/dL (3.4-5.0) Medications Active Scripts Medications Dose Route/Sig Max Daily Dose Days Date Category Ferrous Sulfate 325 Mg Tablet 1 Tab PO DAILY 01/28/18 Reported Super B Complex-Vitamin C (B Complex With Vitamin C) 1 Each Tablet 1 Each PO 12/04/17 Reported Warfarin Sodium 5 Mg Tablet 7.5 Mg PO QTUTHSA 06/10/17 Reported Amiodarone Hcl 200 Mg Tablet 100 Mg PO DAILY 06/10/17 Reported Furosemide 20 Mg Tablet 10 Mg PO QMWF 06/10/17 Reported Metoprolol Succinate ( Xl ) (Metoprolol Succinate) 25 Mg Tab.er.24h 1 Tab PO QPM 11/13/16 Reported Calcitriol 0.25 Mcg Capsule 0.25 Mcg PO QM-W-F 05/24/16 Reported Warfarin Sodium 5 Mg Tablet 5 Mg PO QMWF 05/24/16 Reported Loratadine 10 Mg Tablet 10 Mg PO QHS 10/16/14 Reported Tamsulosin Hcl 0.4 Mg Cap.er.24h 0.4 Mg PO QHS 10/16/14 Reported Atorvastatin Calcium 10 Mg Tablet 10 Mg PO HS 10/16/14 Reported Duoneb 0.5-3(2.5) Mg/3 Ml (Albuterol/Ipratropium) 3 Ml Ampul.neb 3 Ml IH TID PRN 07/24/14 Reported Flonase (Fluticasone Propionate) 16 Gm [place].susp 2 [place] NS BID 01/06/14 Reported Comments CXR REVIEWED 02/09 ? Right basal atelectasis Impression . 1. Acute/Chronic resp failure, expected status post laparoscopic cholecystectomy. 02/03 2. Chronic obstructive pulmonary disease of the chronic bronchitic type. 3. Chronic atrial fibrillation. 4. Obstructive sleep apnea. 5. Common Bile duct stone S/P ERCP 02/05 6. JAYDON/CKD 7. 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 Postoperative delirium. no signs of sepsis, normal lactic acid level, No decompensated respiratory acidosis, improving 02/05 ERCP with sphincterotomy/stone extraction Meds MAC/GOETT Pre-op dx jaundice/abnl IOC/choledocholithiasis Post-op dx choledocholithiasis s/p sphincterotomy/stone extraction large khalida-ampullary diverticulum Plan serial labs monitor for complications possibly advance diet in am if no adverse events Plan . CONTINUE NASAL CANULA FOLLOW NEUROLOGY REC REPEAT ABG ADEQUATE 02/10 FOLLOW SPUTUM CULTURE RESULT P/ PREL GRAM POSITIVE COCCI/ GM NEG RODS. ADD DOXY TO CIPRO OFF BIPAP CONTINUE POST OP CARE NO SIG HYPOXIA PRN HALDOL/ ATIVAN D/W WITH ALIYAH JESUS MD Feb 11, 2018 11:07
[2018-02-11] MEDS: DOXYCYCLINE HYCLATE 100 MG TABLET PO SCH ×2 (12:08→20:28)
--- NOTE | 2018-02-11 12:44 | PDOC ---
Subjective: Subjective: Feels better, says thinking clearly, going to take a bath, wants a bigger cup with a handle for ice. Objective: Objective: Per RN - mentally improved today, orders for diet. Vital Signs: Vital Signs Date Time Temp Pulse Resp B/P (MAP) Pulse Ox O2 Delivery O2 Flow Rate FiO2 02/11/18 11:46 Nasal Cannula 4.0 02/11/18 11:00 98.1 83 26 142/72 (95) 96 98.1 Labs: Laboratory Tests Test 02/11/18 08:42 Sodium Level 150 mmol/L Potassium Level 4.0 mmol/L Chloride Level 117 mmol/L Carbon Dioxide Level 28 mmol/L Anion Gap 5 Blood Urea Nitrogen 56 mg/dL Creatinine 1.4 mg/dL Estimated GFR (Cockcroft-Gault) 49.3 Glucose Level 128 mg/dL Calcium Level 10.5 mg/dL Phosphorus Level 2.5 mg/dL Magnesium Level 1.8 mg/dL Albumin 2.1 g/dL PE: GEN: NAD, eating ice LUNGS: CTAB HEART: RRR ABD: S/ND/NT NEURO/PSYCH: very talkative, does not seem confused A/P: Post-op delirium and dysphagia - improving -- Better today. Plans for dysphagia III diet, will follow. BI WILCOX Feb 11, 2018 12:44
--- NOTE | 2018-02-11 12:45 | PDOC ---
SURGICAL PROGRESS NOTE Subjective more awake denies pain hungry Vital Signs Vital Signs Date Time Temp Pulse Resp B/P (MAP) Pulse Ox O2 Delivery O2 Flow Rate FiO2 02/11/18 11:46 Nasal Cannula 4.0 02/11/18 11:00 98.1 83 26 142/72 (95) 96 98.1 I&O Intake and Output 02/11/18 07:00 Intake Total 0 ml Output Total 1295 ml Balance -1295 ml Intake Oral 0 ml Output Urine Total 1295 ml General: Alert, Cooperative, No acute distress Abdomen: Soft, No tenderness Labs Laboratory Tests Test 02/10/18 04:45 02/10/18 11:20 02/11/18 08:42 Erythrocyte Sedimentation Rate 60 (0-15) Sodium Level 148 mmol/L (136-145) 150 mmol/L (136-145) Potassium Level 4.4 mmol/L (3.5-5.1) 4.0 mmol/L (3.5-5.1) Chloride Level 115 mmol/L (98-107) 117 mmol/L (98-107) Carbon Dioxide Level 27 mmol/L (21-32) 28 mmol/L (21-32) Anion Gap 6 (6-14) 5 (6-14) Blood Urea Nitrogen 63 mg/dL (8-26) 56 mg/dL (8-26) Creatinine 1.4 mg/dL (0.7-1.3) 1.4 mg/dL (0.7-1.3) Estimated GFR (Cockcroft-Gault) 49.3 49.3 Glucose Level 108 mg/dL (70-99) 128 mg/dL (70-99) Calcium Level 10.6 mg/dL (8.5-10.1) 10.5 mg/dL (8.5-10.1) Phosphorus Level 2.1 mg/dL (2.6-4.7) 2.5 mg/dL (2.6-4.7) Magnesium Level 1.7 mg/dL (1.8-2.4) 1.8 mg/dL (1.8-2.4) Ammonia 11 mcmol/L (11-34) Albumin 2.1 g/dL (3.4-5.0) 2.1 g/dL (3.4-5.0) Vitamin B12 Level 717 pg/mL (247-911) 25-Hydroxy Vitamin D Total 31.9 ng/mL (30-100) Serum Folate 8.25 ng/ml (3.2-20.0) Thyroid Stimulating Hormone (TSH) 0.748 uIU/mL (0.358-3.74) O2 Saturation 96 % (92-99) Arterial Blood pH 7.41 (7.35-7.45) Arterial Blood pCO2 at Patient Temp 37 mmHg (35-46) Arterial Blood pO2 at Patient Temp 84 mmHg (65-108) Arterial Blood HCO3 23 mmol/L (21-28) Arterial Blood Base Excess -1 mmol/L (-3-3) FiO2 40 Laboratory Tests Test 02/11/18 08:42 Sodium Level 150 mmol/L (136-145) Potassium Level 4.0 mmol/L (3.5-5.1) Chloride Level 117 mmol/L (98-107) Carbon Dioxide Level 28 mmol/L (21-32) Anion Gap 5 (6-14) Blood Urea Nitrogen 56 mg/dL (8-26) Creatinine 1.4 mg/dL (0.7-1.3) Estimated GFR (Cockcroft-Gault) 49.3 Glucose Level 128 mg/dL (70-99) Calcium Level 10.5 mg/dL (8.5-10.1) Phosphorus Level 2.5 mg/dL (2.6-4.7) Magnesium Level 1.8 mg/dL (1.8-2.4) Albumin 2.1 g/dL (3.4-5.0) Assessment/Plan s/p lap vilma more awake passed swallow and advancing diet YOLA [employer] EXPERT Feb 11, 2018 12:45
--- NOTE | 2018-02-11 13:55 | PDOC ---
Provider Note Provider Note Passed swallow study; restart oral cardiac meds. Restart oral warfarin when agreeable with general surgery. JOHN JOHN NUT CHOPPER Feb 11, 2018 13:54
--- NOTE | 2018-02-11 14:34 | PDOC ---
PROGRESS NOTES Assessment Postoperative delirium, metabolic issues including renal insufficiency and COPD , but no bedside evidence of stroke, ongoing seizure activity, or central nervous system infection. Head CT was negative Elevated ESR Labs so far negative or pending Plan Seroquel 1:1 nursing Repeat ESR 1-2 weeks Discussed with the patient's . Objective Vital Signs Date Time Temp Pulse Resp B/P (MAP) Pulse Ox O2 Delivery O2 Flow Rate FiO2 02/11/18 11:46 Nasal Cannula 4.0 02/11/18 11:00 98.1 83 26 142/72 (95) 96 98.1 Intake and Output 02/11/18 07:00 Intake Total 0 ml Output Total 1295 ml Balance -1295 ml Intake Oral 0 ml Output Urine Total 1295 ml PHYSICAL EXAM He knows name, follows commands, knows location, not date, much more lucid PERRL. EOMI. CN: no focal findings. Muscle tone: normal. Muscle strength: 4/5 DTR: 1+ Plantar reflex: flexor Gait: not examined in bed. Sensory exam: no abnormal findings. No cerebellar signs elicited. Review of Relevant I have reviewed the following items aron (where applicable) has been applied. Labs Laboratory Tests Test 02/10/18 04:45 02/10/18 11:20 02/11/18 08:42 Erythrocyte Sedimentation Rate 60 (0-15) Sodium Level 148 mmol/L (136-145) 150 mmol/L (136-145) Potassium Level 4.4 mmol/L (3.5-5.1) 4.0 mmol/L (3.5-5.1) Chloride Level 115 mmol/L (98-107) 117 mmol/L (98-107) Carbon Dioxide Level 27 mmol/L (21-32) 28 mmol/L (21-32) Anion Gap 6 (6-14) 5 (6-14) Blood Urea Nitrogen 63 mg/dL (8-26) 56 mg/dL (8-26) Creatinine 1.4 mg/dL (0.7-1.3) 1.4 mg/dL (0.7-1.3) Estimated GFR (Cockcroft-Gault) 49.3 49.3 Glucose Level 108 mg/dL (70-99) 128 mg/dL (70-99) Calcium Level 10.6 mg/dL (8.5-10.1) 10.5 mg/dL (8.5-10.1) Phosphorus Level 2.1 mg/dL (2.6-4.7) 2.5 mg/dL (2.6-4.7) Magnesium Level 1.7 mg/dL (1.8-2.4) 1.8 mg/dL (1.8-2.4) Ammonia 11 mcmol/L (11-34) Albumin 2.1 g/dL (3.4-5.0) 2.1 g/dL (3.4-5.0) Vitamin B12 Level 717 pg/mL (247-911) 25-Hydroxy Vitamin D Total 31.9 ng/mL (30-100) Serum Folate 8.25 ng/ml (3.2-20.0) Thyroid Stimulating Hormone (TSH) 0.748 uIU/mL (0.358-3.74) O2 Saturation 96 % (92-99) Arterial Blood pH 7.41 (7.35-7.45) Arterial Blood pCO2 at Patient Temp 37 mmHg (35-46) Arterial Blood pO2 at Patient Temp 84 mmHg (65-108) Arterial Blood HCO3 23 mmol/L (21-28) Arterial Blood Base Excess -1 mmol/L (-3-3) FiO2 40 Laboratory Tests Test 02/11/18 08:42 Sodium Level 150 mmol/L (136-145) Potassium Level 4.0 mmol/L (3.5-5.1) Chloride Level 117 mmol/L (98-107) Carbon Dioxide Level 28 mmol/L (21-32) Anion Gap 5 (6-14) Blood Urea Nitrogen 56 mg/dL (8-26) Creatinine 1.4 mg/dL (0.7-1.3) Estimated GFR (Cockcroft-Gault) 49.3 Glucose Level 128 mg/dL (70-99) Calcium Level 10.5 mg/dL (8.5-10.1) Phosphorus Level 2.5 mg/dL (2.6-4.7) Magnesium Level 1.8 mg/dL (1.8-2.4) Albumin 2.1 g/dL (3.4-5.0) Microbiology 02/04/18 Blood Culture - Final, Complete NO GROWTH AFTER 5 DAYS 02/08/18 - Final, Resulted 02/08/18 - Final, Resulted 02/08/18 - Final, Resulted 02/08/18 - Final, Resulted 02/08/18 Gram Stain Evaluation - Final, Resulted 02/08/18 Sputum Culture - Preliminary, Resulted 02/08/18 Sputum Result 1 - Final, Resulted 02/08/18 Sputum Result 2 - Final, Resulted Medications Current Medications Ondansetron HCl (Zofran) 4 mg PRN Q6HRS PRN IV NAUSEA/VOMITING Last administered on 02/04/18at 04:08; Start 02/03/18 at 07:00; Stop 02/04/18 at 06:59; Status DC Fentanyl Citrate (Fentanyl 2ml Vial) 25 mcg PRN Q5MIN PRN IV MILD PAIN Last administered on 02/03/18at 12:13; Start 02/03/18 at 07:00; Stop 02/04/18 at 06:59; Status DC Fentanyl Citrate (Fentanyl 2ml Vial) 50 mcg PRN Q5MIN PRN IV MODERATE TO SEVERE PAIN; Start 02/03/18 at 07:00; Stop 02/04/18 at 06:59; Status DC Morphine Sulfate (Morphine Sulfate) 1 mg PRN Q10MIN PRN IV SEVERE PAIN Last administered on 02/03/18at 11:42; Start 02/03/18 at 07:00; Stop 02/04/18 at 06:59; Status DC Ringer's Solution 1,000 ml @ 30 mls/hr Q24H IV Last administered on 02/03/18at 09:13; Start 02/03/18 at 07:00; Stop 02/03/18 at 18:59; Status DC Lidocaine HCl (Xylocaine-Mpf 1% Vial) 2 ml PRN 1X PRN ID PRIOR TO IV START; Start 02/03/18 at 07:00; Stop 02/04/18 at 06:59; Status DC Prochlorperazine Edisylate (Compazine) 5 mg PACU PRN PRN IV NAUSEA, MRX1; Start 02/03/18 at 07:00; Stop 02/04/18 at 06:59; Status DC Cefazolin Sodium/ Dextrose 50 ml @ 100 mls/hr 1X PREOP PRN IV PRIOR TO SURGERY Last administered on 02/03/18at 09:35; Start 02/03/18 at 08:00; Stop at 14:44; Status DC Fentanyl Citrate (Fentanyl 2ml Vial) 100 mcg STK-MED ONCE .ROUTE ; Start at 08:09; Stop 02/03/18 at 08:10; Status DC Rocuronium [place] (Zemuron) 50 mg STK-MED ONCE .ROUTE ; Start 02/03/18 at 08:09 ; Stop 02/03/18 at 08:10; Status DC Desflurane (Suprane) 60 ml STK-MED ONCE IH ; Start 02/03/18 at 08:09; Stop at 08:10; Status DC Dexamethasone Sodium Phosphate (Decadron) 20 mg STK-MED ONCE .ROUTE ; Start 02/03 at 08:09; Stop 02/03/18 at 08:10; Status DC Propofol 20 ml @ As Directed STK-MED ONCE IV ; Start 02/03/18 at 08:09; Stop 02/03 at 08:10; Status DC Lidocaine HCl (Lidocaine Pf 2% Vial) 5 ml STK-MED ONCE .ROUTE ; Start 02/03/18 at 08:09; Stop 02/03/18 at 08:10; Status DC Ondansetron HCl (Zofran) 4 mg STK-MED ONCE .ROUTE ; Start 02/03/18 at 08:09; Stop 02/03/18 at 08:10; Status DC Ketorolac Tromethamine (Toradol For Or Only) 30 mg STK-MED ONCE INJ ; Start 02/03 at 08:09; Stop 02/03/18 at 08:10; Status DC Ephedrine Sulfate (ePHEDrine PF IN SALINE SYRINGE) 50 mg STK-MED ONCE IV ; Start 02/03/18 at 08:15; Stop 02/03/18 at 08:16; Status DC Bupivacaine HCl/ Epinephrine Bitart (Marcaine-Epi 0.5%-[id number]) 50 ml STK-MED ONCE .ROUTE Last administered on 02/03/18at 09:49; Start 02/03/18 at 07:56; Stop 02/03/18 at 08:57; Status DC Iohexol (Omnipaque 300 Mg/ml) 100 ml STK-MED ONCE .ROUTE Last administered on at 09:49; Start 02/03/18 at 07:56; Stop 02/03/18 at 08:58; Status DC Phenylephrine HCl (PHENYLEPHRINE in 0.9% NACL PF) 1 mg STK-MED ONCE IV ; Start 02/03/18 at 09:24; Stop 02/03/18 at 09:25; Status DC Glycopyrrolate (Robinul) 1 mg STK-MED ONCE .ROUTE ; Start 02/03/18 at 09:55; Stop 02/03/18 at 09:56; Status DC Neostigmine Methylsulfate (Neostigmine Methylsulfate) 5 mg STK-MED ONCE .ROUTE ; Start 02/03/18 at 09:55; Stop 02/03/18 at 09:56; Status DC Albuterol Sulfate (Ventolin Neb Soln) 2.5 mg 1X PACU PRN NEB SHORTNESS OF BREATH Last administered on 02/03/18at 10:53; Start 02/03/18 at 11:00; Stop at 17:39; Status DC Diphenhydramine HCl (Benadryl) 25 mg PRN Q6HRS PRN PO ITCHING; Start 02/03/18 at 11:00 Diphenhydramine HCl (Benadryl) 25 mg PRN Q6HRS PRN IV ITCHING Last administered on 02/09/18at 22:30; Start 02/03/18 at 11:00 Enoxaparin Sodium (Lovenox 40mg Syringe) 40 mg Q24H SQ ; Start 02/03/18 at 11:00 ; Status Cancel Sodium Chloride (Normal Saline Flush) 3 ml QSHIFT PRN IV AFTER MEDS AND BLOOD DRAWS; Start 02/03/18 at 11:00 Potassium Chloride/Sodium Chloride 1,000 ml @ 75 mls/hr [id number] IV Last administered on 02/03/18at 23:55; Start 02/03/18 at 10:46; Stop 02/04/18 at 11:37; Status DC Dextrose (Dextrose 50%-Water Syringe) 12.5 gm PRN Q15MIN PRN IV SEE COMMENTS; Start 02/03/18 at 11:00 Oxycodone/ Acetaminophen (Percocet 5/325) 1 tab PRN Q4HRS PRN PO MILD PAIN, 1ST CHOICE Last administered on 02/03/18at 22:41; Start 02/03/18 at 11:00 Oxycodone/ Acetaminophen (Percocet 5/325) 2 tab PRN Q4HRS PRN PO MODERATE PAIN , SEVERE PAIN; Start 02/03/18 at 11:00 Morphine Sulfate (Morphine Sulfate) 5 mg PRN Q3HRS PRN IV MODERATE TO SEVERE PAIN Last administered on 02/10/18at 17:55; Start 02/03/18 at 11:15 Docusate Sodium (Colace) 100 mg BID PO Last administered on 02/09/18at 20:52; Start 02/03/18 at 11:00 Ondansetron HCl (Zofran) 4 mg PRN Q6HRS PRN IV NAUESA, 1ST CHOICE Last administered on 02/04/18at 16:22; Start 02/03/18 at 11:00 Enoxaparin Sodium (Lovenox 40mg Syringe) 40 mg Q24H SQ ; Start 02/04/18 at 09:00 ; Stop 02/04/18 at 09:00; Status DC Hydralazine HCl (Apresoline Inj) 10 mg 1X PACU PRN IVP ELEVATED BP, SEE COMMENTS; Start 02/03/18 at 12:15; Stop 02/03/18 at 20:00; Status DC Oxycodone/ Acetaminophen (Percocet 5/325) 1 tab 1X PACU PRN PO PAIN Last administered on 02/03/18at 12:20; Start 02/03/18 at 12:15; Stop 02/03/18 at 20:00; Status DC Albuterol Sulfate (Ventolin Neb Soln) 2.5 mg PRN Q2HR PRN NEB [id number] Last administered on 02/11/18at 05:54; Start 02/03/18 at 15:00 Albuterol/ Ipratropium (Duoneb) 3 ml RTQID NEB Last administered on 02/11/18at 11 :46; Start 02/03/18 at 16:00 Ondansetron HCl (Zofran) 4 mg PRN Q6HRS PRN IV NAUSEA/VOMITING; Start 02/04/18 at 07:00; Stop 02/05/18 at 06:59; Status DC Fentanyl Citrate (Fentanyl 2ml Vial) 25 mcg PRN Q5MIN PRN IV MILD PAIN; Start 02/04/18 at 07:00; Stop 02/05/18 at 06:59; Status DC Fentanyl Citrate (Fentanyl 2ml Vial) 50 mcg PRN Q5MIN PRN IV MODERATE TO SEVERE PAIN; Start 02/04/18 at 07:00; Stop 02/05/18 at 06:59; Status DC Morphine Sulfate (Morphine Sulfate) 1 mg PRN Q10MIN PRN IV SEVERE PAIN; Start 02/04/18 at 07:00; Stop 02/05/18 at 06:59; Status DC Ringer's Solution 1,000 ml @ 30 mls/hr Q24H IV ; Start 02/04/18 at 07:00; Stop 02/04/18 at 18:59; Status DC Lidocaine HCl (Xylocaine-Mpf 1% Vial) 2 ml PRN 1X PRN ID IV START; Start at 07:00; Stop 02/05/18 at 06:59; Status DC Prochlorperazine Edisylate (Compazine) 5 mg PACU PRN PRN IV NAUSEA, MRX1; Start 02/04/18 at 07:00; Stop 02/05/18 at 06:59; Status DC Furosemide (Lasix) 40 mg 1X ONCE IVP Last administered on 02/04/18at 12:47; Start 02/04/18 at 11:45; Stop 02/04/18 at 11:46; Status DC Sodium Chloride 1,000 ml @ 100 mls/hr Q10H IV Last administered on 02/05/18at 21 :05; Start 02/04/18 at 12:00; Stop 02/06/18 at 13:12; Status DC Hydralazine HCl (Apresoline Inj) 10 mg PRN Q4HRS PRN IVP ELEVATED BP, SEE COMMENTS Last administered on 02/10/18at 03:12; Start 02/04/18 at 12:15 Iohexol (Omnipaque 300 Mg/ml) 100 ml STK-MED ONCE .ROUTE ; Start 02/04/18 at 12: 11; Stop 02/04/18 at 12:12; Status DC Cefazolin Sodium/ Dextrose (Ancef 2gm Premix) 2 gm STK-MED ONCE IV ; Start at 07:00; Stop 02/04/18 at 12:31; Status DC Propofol 0 ml @ As Directed STK-MED ONCE IV ; Start 02/04/18 at 13:50; Stop at 13:51; Status DC Lidocaine HCl (Lidocaine Pf 2% Vial) 5 ml STK-MED ONCE .ROUTE ; Start 02/04/18 at 13:50; Stop 02/04/18 at 13:51; Status DC Famotidine (Pepcid Vial) 20 mg STK-MED ONCE .ROUTE ; Start 02/04/18 at 13:50; Stop 02/04/18 at 13:51; Status DC Dexamethasone Sodium Phosphate (Decadron) 20 mg STK-MED ONCE .ROUTE ; Start 02/04 at 13:50; Stop 02/04/18 at 13:52; Status DC Ondansetron HCl (Zofran) 4 mg STK-MED ONCE .ROUTE ; Start 02/04/18 at 13:50; Stop 02/04/18 at 13:52; Status DC Lorazepam (Ativan) 0.5 mg PRN Q8HRS PRN PO ANXIETY / AGITATION; Start 02/04/18 at 15:15 Furosemide (Lasix) 40 mg 1X ONCE IVP Last administered on 02/04/18at 17:00; Start 02/04/18 at 16:45; Stop 02/04/18 at 16:46; Status DC Ciprofloxacin/ Dextrose 200 ml @ 200 mls/hr Q12HR IV Last administered on at 08:10; Start 02/04/18 at 17:30; Stop 02/06/18 at 14:49; Status DC Metronidazole 100 ml @ 100 mls/hr Q12HR IV Last administered on 02/09/18at 20:52 ; Start 02/04/18 at 17:30; Stop 02/10/18 at 13:43; Status DC Metoclopramide HCl (Reglan Vial) 5 mg PRN Q6HRS PRN IV NAUSEA/VOMITING 2nd CHOICE Last administered on 02/05/18at 13:05; Start 02/04/18 at 17:30; Stop at 15:13; Status DC Lorazepam (Ativan) 0.5 mg PRN Q6HRS PRN IV ANXIETY / AGITATION 1ST CHOICE Last administered on 02/10/18at 08:18; Start 02/04/18 at 20:45 Acetaminophen (Tylenol) 500 mg PRN Q4HRS PRN PO FEVER; Start 02/04/18 at 22:15 Furosemide (Lasix) 40 mg 1X ONCE IVP Last administered on 02/05/18at 01:15; Start 02/05/18 at 01:30; Stop 02/05/18 at 01:31; Status DC Ringer's Solution 1,000 ml @ 75 mls/hr [id number] IV Last administered on at 09:52; Start 02/05/18 at 10:00; Stop 02/06/18 at 13:12; Status DC Iohexol (Omnipaque 300 Mg/ml) 100 ml STK-MED ONCE .ROUTE ; Start 02/05/18 at 10: 10; Stop 02/05/18 at 10:11; Status DC Fentanyl Citrate (Fentanyl 2ml Vial) 100 mcg STK-MED ONCE .ROUTE ; Start at 10:33; Stop 02/05/18 at 10:34; Status DC Ondansetron HCl (Zofran) 4 mg STK-MED ONCE .ROUTE ; Start 02/05/18 at 11:01; Stop 02/05/18 at 11:03; Status DC Iohexol (Omnipaque 300 Mg/ml) 100 ml STK-MED ONCE IV Last administered on at 11:27; Start 02/05/18 at 11:27; Stop 02/05/18 at 11:29; Status DC Haloperidol Lactate (Haldol Inj) 5 mg PRN Q6HRS PRN IVP AGITATION 2ND CHOICE Last administered on 02/10/18at 09:00; Start 02/05/18 at 12:30 Ciprofloxacin/ Dextrose 200 ml @ 200 mls/hr Q24H IV Last administered on at 08:59; Start 02/07/18 at 08:00 Magnesium Sulfate 50 ml @ 25 mls/hr PRN DAILY PRN IV for Mag < 1.7 on am labs; Start 02/07/18 at 09:00 Darbepoetin Rob (Aranesp) 60 mcg [id number] SQ Last administered on 02/07/18at 21: 30; Start 02/07/18 at 21:00 Lactobacillus Rhamnosus (Culturelle) 1 cap BID PO Last administered on at 20:52; Start 02/08/18 at 21:00 Sodium Chloride 1,000 ml @ 125 mls/hr Q8H IV Last administered on 02/09/18at 04: 39; Start 02/08/18 at 10:00; Stop 02/09/18 at 10:23; Status DC Furosemide (Lasix) 40 mg 1X ONCE IVP Last administered on 02/08/18at 12:07; Start 02/08/18 at 11:30; Stop 02/08/18 at 11:31; Status DC Amino Acids/ Glycerin/ Electrolytes 1,000 ml @ 75 mls/hr [id number] IV Last administered on 02/10/18at 05:43; Start 02/08/18 at 12:00; Stop 02/11/18 at 12:42; Status DC Sodium Bicarbonate (Sodium Bicarb Adult 8.4% Syr) 50 meq 1X ONCE IV Last administered on 02/08/18at 12:08; Start 02/08/18 at 12:30; Stop 02/08/18 at 12:31; Status DC Albuterol/ Ipratropium (Duoneb) 3 ml STK-MED ONCE .ROUTE ; Start 02/08/18 at 19: 39; Stop 02/08/18 at 19:40; Status DC Neostigmine Methylsulfate (Neostigmine Methylsulfate) 5 mg STK-MED ONCE .ROUTE ; Start 02/06/18 at 12:00; Stop 02/09/18 at 06:52; Status DC Lidocaine HCl (Lidocaine HCl 2% Abboject) 100 mg STK-MED ONCE .ROUTE ; Start 02/06/18 at 12:00; Stop 02/09/18 at 06:52; Status DC Phenylephrine HCl (PHENYLEPHRINE in 0.9% NACL PF) 2 mg STK-MED ONCE IV ; Start 02/06/18 at 12:00; Stop 02/09/18 at 06:52; Status DC Propofol (Diprivan) 200 mg STK-MED ONCE IV ; Start 02/06/18 at 12:00; Stop at 06:52; Status DC Glycopyrrolate (Robinul) 1 mg STK-MED ONCE .ROUTE ; Start 02/06/18 at 12:00; Stop 02/09/18 at 06:52; Status DC Dexamethasone Sodium Phosphate (Decadron) 20 mg STK-MED ONCE .ROUTE ; Start 02/06 at 12:00; Stop 02/09/18 at 06:52; Status DC Metoprolol Tartrate (Lopressor Vial) 5 mg PRN Q6HRS PRN IVP TACHYCARDIA; Start 02/09/18 at 12:45 Quetiapine Fumarate (SEROquel) 50 mg QHS PO Last administered on 02/09/18at 20:53 ; Start 02/09/18 at 21:00; Stop 02/10/18 at 14:54; Status DC Metronidazole 100 ml @ 100 mls/hr Q12H IV Last administered on 02/11/18at 02:01 ; Start 02/10/18 at 14:00; Stop 02/11/18 at 12:42; Status DC Dextrose/Sodium Chloride 1,000 ml @ 75 mls/hr [id number] IV Last administered on 02/11/18at 03:35; Start 02/10/18 at 14:15; Stop 02/11/18 at 12:42; Status DC Quetiapine Fumarate (SEROquel) 50 mg BID PO ; Start 02/10/18 at 15:00 Dextrose 1,000 ml @ 100 mls/hr Q10H IV Last administered on 02/11/18at 11:06; Start 02/11/18 at 10:45 Doxycycline Hyclate (Vibra-Tab) 100 mg BID PO Last administered on 02/11/18at 12: 08; Start 02/11/18 at 11:30 Metronidazole (Flagyl) 500 mg Q12HR PO ; Start 02/11/18 at 14:00 Amiodarone HCl (Cordarone) 100 mg DAILY PO ; Start 02/11/18 at 14:00 Atorvastatin Calcium (Lipitor) 10 mg HS PO ; Start 02/11/18 at 21:00 Metoprolol Succinate (Toprol Xl) 25 mg QPM PO ; Start 02/11/18 at 18:00 Active Scripts Active Reported Ferrous Sulfate 325 Mg Tablet 1 Tab PO DAILY Super B Complex-Vitamin C (B Complex With Vitamin C) 1 Each Tablet 1 Each PO Warfarin Sodium 5 Mg Tablet 7.5 Mg PO QTUTHSA Amiodarone Hcl 200 Mg Tablet 100 Mg PO DAILY Furosemide 20 Mg Tablet 10 Mg PO QMWF Metoprolol Succinate ( Xl ) (Metoprolol Succinate) 25 Mg Tab.er.24h 1 Tab PO QPM Calcitriol 0.25 Mcg Capsule 0.25 Mcg PO QM-W-F Warfarin Sodium 5 Mg Tablet 5 Mg PO QMWF Loratadine 10 Mg Tablet 10 Mg PO QHS Tamsulosin Hcl 0.4 Mg Cap.er.24h 0.4 Mg PO QHS Atorvastatin Calcium 10 Mg Tablet 10 Mg PO HS Duoneb 0.5-3(2.5) Mg/3 Ml (Albuterol/Ipratropium) 3 Ml Ampul.neb 3 Ml IH TID PRN Flonase (Fluticasone Propionate) 16 Gm Everest.susp 2 Everest NS BID Vitals/I & O Vital Sign - Last 24 Hours 02/10/18 02/10/18 02/10/18 02/10/18 15:00 16:08 17:55 19:00 Temp 97.9 97.9 97.9 97.9 Pulse 92 84 Resp 24 20 B/P (MAP) 143/67 (92) 163/80 (107) Pulse Ox 94 94 95 O2 Delivery Nasal Cannula Nasal Cannula Nasal Cannula Nasal Cannula O2 Flow Rate 3.5 4.0 4.0 02/10/18 02/10/18 02/10/18 02/11/18 19:11 20:20 23:12 05:45 Temp 97.0 97.0 Pulse 91 Resp 20 B/P (MAP) 143/84 (103) Pulse Ox 96 O2 Delivery Nasal Cannula Nasal Cannula Nasal Cannula Nasal Cannula O2 Flow Rate 4.0 4.0 4.0 02/11/18 02/11/18 02/11/18 02/11/18 07:00 07:34 08:00 11:00 Temp 98.7 98.1 98.7 98.1 Pulse 86 83 Resp 30 26 B/P (MAP) 166/82 (110) 142/72 (95) Pulse Ox 93 96 96 O2 Delivery Nasal Cannula Nasal Cannula Nasal Cannula Nasal Cannula O2 Flow Rate 4.0 4.0 4.0 4.0 02/11/18 11:46 O2 Delivery Nasal Cannula O2 Flow Rate 4.0 Intake and Output 02/10/18 02/10/18 02/11/18 15:00 23:00 07:00 Intake Total 0 ml Output Total 95 ml 500 ml 700 ml Balance -95 ml -500 ml -[address] head without intravenous contrast There is motion artifact at many levels which could obscure subtle abnormalities. The ventricles are appropriate in size, shape, and location for the patient's age. No obvious intracranial mass, mass-effect, midline shift, hemorrhage or obvious acute infarction is identified. Basilar cisterns are patent. Patchy, nonspecific white matter low-attenuation is seen, probably from chronic microvascular ischemic disease. Bone windows demonstrate no acute calvarial abnormality. Mild ethmoid mucosal disease is suspected. Impression: Limited by motion. No acute intracranial process. Please note that CT can be relatively insensitive to acute ischemic infarction for up to 24 hours after symptom onset. JOSEP MOSQUERA MD Feb 11, 2018 14:34
[2018-02-11] MEDS: metroNIDAZOLE 500 MG TABLET PO SCH ×2 (14:52→20:27)
[2018-02-11] MEDS: AMIODARONE HCL 200 MG TABLET. PO SCH (14:54)
[2018-02-11 15:00] VITALS: BP 130/69
[2018-02-11] MEDS: METOPROLOL SUCC 24HR ER 25 MG TAB.ER.24H. PO SCH ×2 (17:16→18:02)
[2018-02-11 19:30] VITALS: BP 144/62
[2018-02-11] MEDS: ATORVASTATIN CALCIUM 10 MG TABLET. PO SCH (20:28)
[2018-02-11 22:29] VITALS: BP 130/63
[2018-02-12] MEDS: ONDANSETRON PF 4 MG/2 ML VIAL. IV PRN (02:11)
[2018-02-12] MEDS: oxyCODONE/APAP 5/325 1 TAB TABLET PO PRN (02:12)
[2018-02-12 02:17] VITALS: BP 152/61
[2018-02-12] MEDS: ALBUTEROL SULFATE 2.5 MG/3 ML NEBU. NEB PRN (02:34)
[2018-02-12] MEDS: IV DEXTROSE 5% 1,000 ML IV SCH (05:41)
[2018-02-12 07:44] VITALS: BP 115/61
[2018-02-12 08:08] LABS: ALBUMIN 1.9 g/dL (3.4-5.0); CALCIUM 10.2 mg/dL (8.5-10.1); CREATININE 1.4 mg/dL (0.7-1.3); GFR 49.3; POTASSIUM 3.7 mmol/L (3.5-5.1)
[2018-02-12] MEDS: DOXYCYCLINE HYCLATE 100 MG TABLET PO SCH (08:20)
[2018-02-12] MEDS: QUEtiapine 25 MG TABLET. PO SCH (08:21)
[2018-02-12] MEDS: DOCUSATE SODIUM 100 MG CAPSULE. PO SCH ×2 (08:21→20:18)
[2018-02-12] MEDS: metroNIDAZOLE 500 MG TABLET PO SCH (08:21)
[2018-02-12] MEDS: LACTOBACILLUS RHAMNOSUS GG 1 CAPSULE. PO SCH ×2 (08:21→20:18)
[2018-02-12] MEDS: AMIODARONE HCL 200 MG TABLET. PO SCH (08:21)
[2018-02-12] MEDS: CIPROFLOXACIN 400MG PREMIX 200 ML IV SCH (08:25)
[2018-02-12] MEDS: IPRATRPIUM/ALBUTEROL 0.5/2.5MG 3 ML NEBU. NEB SCH ×4 (08:33→20:00)
--- NOTE | 2018-02-12 08:44 | PDOC ---
SURGICAL PROGRESS NOTE Subjective Pt with some confusion, had pain meds last night, tiffany PO Vital Signs Vital Signs Date Time Temp Pulse Resp B/P (MAP) Pulse Ox O2 Delivery O2 Flow Rate FiO2 02/12/18 08:35 97 Nasal Cannula 4.0 02/12/18 08:21 72 115/61 02/12/18 07:44 98.1 16 98.1 I&O Intake and Output 02/12/18 07:00 Output Total 575 ml Balance -575 ml Output Urine Total 575 ml # Voids 6 # Bowel Movements 1 General: Alert, Cooperative, No acute distress Abdomen: Soft, No tenderness Labs Laboratory Tests Test 02/10/18 11:20 02/11/18 08:42 02/12/18 07:15 O2 Saturation 96 % (92-99) Arterial Blood pH 7.41 (7.35-7.45) Arterial Blood pCO2 at Patient Temp 37 mmHg (35-46) Arterial Blood pO2 at Patient Temp 84 mmHg (65-108) Arterial Blood HCO3 23 mmol/L (21-28) Arterial Blood Base Excess -1 mmol/L (-3-3) FiO2 40 Sodium Level 150 mmol/L (136-145) 147 mmol/L (136-145) Potassium Level 4.0 mmol/L (3.5-5.1) 3.7 mmol/L (3.5-5.1) Chloride Level 117 mmol/L (98-107) 114 mmol/L (98-107) Carbon Dioxide Level 28 mmol/L (21-32) 27 mmol/L (21-32) Anion Gap 5 (6-14) 6 (6-14) Blood Urea Nitrogen 56 mg/dL (8-26) 51 mg/dL (8-26) Creatinine 1.4 mg/dL (0.7-1.3) 1.4 mg/dL (0.7-1.3) Estimated GFR (Cockcroft-Gault) 49.3 49.3 Glucose Level 128 mg/dL (70-99) 117 mg/dL (70-99) Calcium Level 10.5 mg/dL (8.5-10.1) 10.2 mg/dL (8.5-10.1) Phosphorus Level 2.5 mg/dL (2.6-4.7) 3.0 mg/dL (2.6-4.7) Magnesium Level 1.8 mg/dL (1.8-2.4) 1.6 mg/dL (1.8-2.4) Albumin 2.1 g/dL (3.4-5.0) 1.9 g/dL (3.4-5.0) Laboratory Tests Test 02/12/18 07:15 Sodium Level 147 mmol/L (136-145) Potassium Level 3.7 mmol/L (3.5-5.1) Chloride Level 114 mmol/L (98-107) Carbon Dioxide Level 27 mmol/L (21-32) Anion Gap 6 (6-14) Blood Urea Nitrogen 51 mg/dL (8-26) Creatinine 1.4 mg/dL (0.7-1.3) Estimated GFR (Cockcroft-Gault) 49.3 Glucose Level 117 mg/dL (70-99) Calcium Level 10.2 mg/dL (8.5-10.1) Phosphorus Level 3.0 mg/dL (2.6-4.7) Magnesium Level 1.6 mg/dL (1.8-2.4) Albumin 1.9 g/dL (3.4-5.0) Problem List s/p lap vilma confusion will stop seroquel and percocet d/w pt's spouse will ask for hospitalist consult, given complexity of pt JUNIE CARBONE MD Feb 12, 2018 08:44
--- NOTE | 2018-02-12 09:10 | PDOC ---
SUBJECTIVE ROS Not confused, feeling better OBJECTIVE Vital Signs Vital Signs Date Time Temp Pulse Resp B/P (MAP) Pulse Ox O2 Delivery O2 Flow Rate FiO2 02/12/18 08:35 97 Nasal Cannula 4.0 02/12/18 08:21 72 115/61 02/12/18 07:44 98.1 16 98.1 I & 0 Intake and Output 02/12/18 07:00 Output Total 575 ml Balance -575 ml Output Urine Total 575 ml # Voids 6 # Bowel Movements 1 PHYSICAL EXAM Physical Exam GEN: On O2 by NC, NAD HEENT-On O2 BY nc neck- supple LUNGS: CTAB ant HEART: RRR, no murmurs ABD: s/p GB surgery, obese EXTREMITY: No edema SKIN: No rashes, NEURO/PSYCH: alert x Ox 3 gu Rodriguez removed DIAGNOSIS/ASSESSMENT Assessment & Plan ARF/ ATN : Good UOP Renal function- back to baseline Current fluid and E-lyte status does not necessitate emergent need for dialysis. 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 As per Pt's , PCP recommended to Hold off on Surgery -On Calcitriol 3 x week at Home Held since Surgery CKD III - baseline creat ~ 2-2.3 as op Etiology HTnsive / Atherosclerotic Vascular Dz Hyperkalemia - Normal K Hypernatremia-improving ANEMIA;presumed post op On Aranesp Resp Failure / hypoxia on RA AMS - ?ICU delirium Resolved HTN:Current BP meds as reviewed. See orders for changes. HypoALbuminemia - As per GS /Attending Radiologist Holding procalAmine patient and RN at bed side CxR- 1. Mild cardiomegaly. 2. Minimal right basilar atelectasis. COMMENT/RELEVANT DATA Meds Current Medications Medications (Trade) Dose Ordered Sig/Patricia Start Time Stop Time Status Last Admin Dose Admin Acetaminophen (Tylenol) 500 mg PRN Q4HRS PRN 02/04/18 22:15 Albuterol Sulfate (Ventolin Neb Soln) 2.5 mg PRN Q2HR PRN 02/03/18 15:00 02/12/18 02:34 2.5 MG Albuterol/ Ipratropium (Duoneb) 3 ml STK-MED ONCE 02/08/18 19:39 02/08/18 19:40 DC Amino Acids/ Glycerin/ Electrolytes 1,000 ml @ 75 mls/hr [id number] 02/08/18 12:00 02/11/18 12:42 DC 02/10/18 05:43 75 MLS/HR Amiodarone HCl (Cordarone) 100 mg DAILY 02/11/18 14:00 02/12/18 08:21 100 MG Atorvastatin Calcium (Lipitor) 10 mg HS 02/11/18 21:00 02/11/18 20:28 10 MG Bupivacaine HCl/ Epinephrine Bitart (Marcaine-Epi 0.5%-1:[id number]) 50 ml STK-MED ONCE 02/03/18 07:56 02/03/18 08:57 DC 02/03/18 09:49 8 ML Cefazolin Sodium/ Dextrose (Ancef 2gm Premix) 2 gm STK-MED ONCE 02/03/18 07:00 02/04/18 12:31 DC Ciprofloxacin/ Dextrose 200 ml @ 200 mls/hr Q24H 02/07/18 08:00 02/12/18 08:25 200 MLS/HR Darbepoetin Rob (Aranesp) 60 mcg [id number] 02/07/18 21:00 02/07/18 21:30 60 MCG Desflurane (Suprane) 60 ml STK-MED ONCE 02/03/18 08:09 02/03/18 08:10 DC Dexamethasone Sodium Phosphate (Decadron) 20 mg STK-MED ONCE 02/06/18 12:00 02/09/18 06:52 DC Dextrose 1,000 ml @ 100 mls/hr Q10H 02/11/18 10:45 02/12/18 08:42 DC 02/12/18 05:41 100 MLS/HR Dextrose (Dextrose 50%-Water Syringe) 12.5 gm PRN Q15MIN PRN 02/03/18 11:00 Dextrose/Sodium Chloride 1,000 ml @ 75 mls/hr [id number] 02/10/18 14:15 02/11/18 12:42 DC 02/11/18 03:35 75 MLS/HR Diphenhydramine HCl (Benadryl) 25 mg PRN Q6HRS PRN 02/03/18 11:00 02/09/18 22:30 25 MG Docusate Sodium (Colace) 100 mg BID 02/03/18 11:00 02/12/18 08:21 100 MG Doxycycline Hyclate (Vibra-Tab) 100 mg BID 02/11/18 11:30 02/12/18 08:20 100 MG Enoxaparin Sodium (Lovenox 40mg Syringe) 40 mg Q24H 02/04/18 09:00 02/04/18 09:00 DC Ephedrine Sulfate (ePHEDrine PF IN SALINE SYRINGE) 50 mg STK-MED ONCE 02/03/18 08:15 02/03/18 08:16 DC Famotidine (Pepcid Vial) 20 mg STK-MED ONCE 02/04/18 13:50 02/04/18 13:51 DC Fentanyl Citrate (Fentanyl 2ml Vial) 100 mcg STK-MED ONCE 02/05/18 10:33 02/05/18 10:34 DC Furosemide (Lasix) 40 mg 1X ONCE 02/08/18 11:30 02/08/18 11:31 DC 02/08/18 12:07 40 MG Glycopyrrolate (Robinul) 1 mg STK-MED ONCE 02/06/18 12:00 02/09/18 06:52 DC Haloperidol Lactate (Haldol Inj) 5 mg PRN Q6HRS PRN 02/05/18 12:30 02/10/18 09:00 5 MG Hydralazine HCl (Apresoline Inj) 10 mg PRN Q4HRS PRN 02/04/18 12:15 02/10/18 03:12 10 MG Iohexol (Omnipaque 300 Mg/ml) 100 ml STK-MED ONCE 02/05/18 11:27 02/05/18 11:29 DC 02/05/18 11:27 30 ML Ketorolac Tromethamine (Toradol For Or Only) 30 mg STK-MED ONCE 02/03/18 08:09 02/03/18 08:10 DC Lactobacillus Rhamnosus (Culturelle) 1 cap BID 02/08/18 21:00 02/12/18 08:21 1 CAP Lidocaine HCl (Lidocaine HCl 2% Abboject) 100 mg STK-MED ONCE 02/06/18 12:00 02/09/18 06:52 DC Lidocaine HCl (Lidocaine Pf 2% Vial) 5 ml STK-MED ONCE 02/04/18 13:50 02/04/18 13:51 DC Lidocaine HCl (Xylocaine-Mpf 1% Vial) 2 ml PRN 1X PRN 02/04/18 07:00 02/05/18 06:59 DC Lorazepam (Ativan) 0.5 mg PRN Q6HRS PRN 02/04/18 20:45 02/10/18 08:18 0.5 MG Magnesium Sulfate 50 ml @ 25 mls/hr PRN DAILY PRN 02/07/18 09:00 Metoclopramide HCl (Reglan Vial) 5 mg PRN Q6HRS PRN 02/04/18 17:30 02/09/18 15:13 DC 02/05/18 13:05 5 MG Metoprolol Succinate (Toprol Xl) 25 mg QPM 02/11/18 18:00 02/11/18 18:02 25 MG Metoprolol Tartrate (Lopressor Vial) 5 mg PRN Q6HRS PRN 02/09/18 12:45 Metronidazole (Flagyl) 500 mg Q12HR 02/11/18 14:00 02/12/18 08:21 500 MG Morphine Sulfate (Morphine Sulfate) 1 mg PRN Q10MIN PRN 02/04/18 07:00 02/05/18 06:59 DC Neostigmine Methylsulfate (Neostigmine Methylsulfate) 5 mg STK-MED ONCE 02/06/18 12:00 02/09/18 06:52 DC Ondansetron HCl (Zofran) 4 mg STK-MED ONCE 02/05/18 11:01 02/05/18 11:03 DC Oxycodone/ Acetaminophen (Percocet 5/325) 1 tab 1X PACU PRN 02/03/18 12:15 02/03/18 20:00 DC 02/03/18 12:20 1 TAB Phenylephrine HCl (PHENYLEPHRINE in 0.9% NACL PF) 2 mg STK-MED ONCE 02/06/18 12:00 02/09/18 06:52 DC Potassium Chloride/Sodium Chloride 1,000 ml @ 75 mls/hr [id number] 02/03/18 10:46 02/04/18 11:37 DC 02/03/18 23:55 75 MLS/HR Prochlorperazine Edisylate (Compazine) 5 mg PACU PRN PRN 02/04/18 07:00 02/05/18 06:59 DC Propofol (Diprivan) 200 mg STK-MED ONCE 02/06/18 12:00 02/09/18 06:52 DC Quetiapine Fumarate (SEROquel) 50 mg BID 02/10/18 15:00 02/12/18 08:42 DC 02/11/18 20:28 50 MG Ringer's Solution 1,000 ml @ 75 mls/hr [id number] 02/05/18 10:00 02/06/18 13:12 DC 02/05/18 09:52 75 MLS/HR Rocuronium [place] (Zemuron) 50 mg STK-MED ONCE 02/03/18 08:09 02/03/18 08:10 DC Sodium Bicarbonate (Sodium Bicarb Adult 8.4% Syr) 50 meq 1X ONCE 02/08/18 12:30 02/08/18 12:31 DC 02/08/18 12:08 50 MEQ Sodium Chloride 1,000 ml @ 125 mls/hr Q8H 02/08/18 10:00 02/09/18 10:23 DC 02/09/18 04:39 125 MLS/HR Sodium Chloride (Normal Saline Flush) 3 ml QSHIFT PRN 02/03/18 11:00 Lab Laboratory Tests Test 02/12/18 07:15 Sodium Level 147 mmol/L (136-145) Potassium Level 3.7 mmol/L (3.5-5.1) Chloride Level 114 mmol/L (98-107) Carbon Dioxide Level 27 mmol/L (21-32) Anion Gap 6 (6-14) Blood Urea Nitrogen 51 mg/dL (8-26) Creatinine 1.4 mg/dL (0.7-1.3) Estimated GFR (Cockcroft-Gault) 49.3 Glucose Level 117 mg/dL (70-99) Calcium Level 10.2 mg/dL (8.5-10.1) Phosphorus Level 3.0 mg/dL (2.6-4.7) Magnesium Level 1.6 mg/dL (1.8-2.4) Albumin 1.9 g/dL (3.4-5.0) Results All relevant outside records, renal labs, imaging studies, telemetry/EKG's were reviewed. KIERSTEN BRODERICK MD Feb 12, 2018 09:10
--- NOTE | 2018-02-12 09:48 | PDOC2 ---
CONSULT Date of Consult Date of Consult DATE: 02/12/18 TIME: 09:41 Reason for Consult Reason for Consult: Confusion Referring Physician Referring Physician: Te Identification/Chief Complaint Chief Complaint Confusion Source Source: Caregiver, Chart review History of Present Illness Reason for Visit: 77-year-old male, admitted on the general surgery service who underwent lap cholecystectomy for symptomatic cholelithiasis. But postop course remarkable for significant confusion. He is actually getting better now. We think it is a combination of his pain medicine/narcotic and Seroquel which is his home regimen. He does have history of CAD with stents in the past, tells me no confusion postop during those stenting. Neurology also involved along with renal. Creatinine 1.4 and holding, sodium 142. GLASS CYLINDER FLANGER is on the case, Diet/ dysphagia 3 with honey thickened necktar liq. ESR is elevated 60 with no signs of fever. WBC 12.1 on IV and by mouth antibiotics, hemoglobin 9.4, platelets low 123. PT OT also on the case. Patient lives at home with a who is 30 years younger than him. Agreeable to SNU if needed Sitter at bedside He is alerted to self, place, and year, but thought it was Thursday instead of Thursday Past Medical History Cardiovascular: AFIB, CAD, CHF, HTN, Hyperlipidemia, Other (carotid stenosis, peripheral vascular disease) Pulmonary: COPD, Pneumonia, Other (sleep apnea) CENTRAL NERVOUS SYSTEM: Other GI: Constipation, Hemorrhoids, Other (colonic polyps) Heme/Onc: Anemia NOS Hepatobiliary: No pertinent hx Psych: Anxiety, Depression Musculoskeletal: Osteoarthritis Rheumatologic: No pertinent hx Infectious disease: No pertinent hx Renal/: Chronic renal insuff, Benign prostatic enlarg., Other (erectile dysfunction) Endocrine: No pertinent hx Dermatology: Basal cell Past Surgical History Past Surgical History: Pacemaker, Cholecystectomy, Cataract Removal, Hernia Repair, Other (rectal fistula repair, right index finger) Family History Family History: Coronary Artery Disease Social History No ALCOHOL: rare Drugs: None Lives: with Family Domestic Violence: Neg Current Medications Current Medications Current Medications Ondansetron HCl (Zofran) 4 mg PRN Q6HRS PRN IV NAUSEA/VOMITING Last administered on 02/04/18at 04:08; Start 02/03/18 at 07:00; Stop 02/04/18 at 06:59; Status DC Fentanyl Citrate (Fentanyl 2ml Vial) 25 mcg PRN Q5MIN PRN IV MILD PAIN Last administered on 02/03/18at 12:13; Start 02/03/18 at 07:00; Stop 02/04/18 at 06:59; Status DC Fentanyl Citrate (Fentanyl 2ml Vial) 50 mcg PRN Q5MIN PRN IV MODERATE TO SEVERE PAIN; Start 02/03/18 at 07:00; Stop 02/04/18 at 06:59; Status DC Morphine Sulfate (Morphine Sulfate) 1 mg PRN Q10MIN PRN IV SEVERE PAIN Last administered on 02/03/18at 11:42; Start 02/03/18 at 07:00; Stop 02/04/18 at 06:59; Status DC Ringer's Solution 1,000 ml @ 30 mls/hr Q24H IV Last administered on 02/03/18at 09:13; Start 02/03/18 at 07:00; Stop 02/03/18 at 18:59; Status DC Lidocaine HCl (Xylocaine-Mpf 1% Vial) 2 ml PRN 1X PRN ID PRIOR TO IV START; Start 02/03/18 at 07:00; Stop 02/04/18 at 06:59; Status DC Prochlorperazine Edisylate (Compazine) 5 mg PACU PRN PRN IV NAUSEA, MRX1; Start 02/03/18 at 07:00; Stop 02/04/18 at 06:59; Status DC Cefazolin Sodium/ Dextrose 50 ml @ 100 mls/hr 1X PREOP PRN IV PRIOR TO SURGERY Last administered on 02/03/18at 09:35; Start 02/03/18 at 08:00; Stop at 14:44; Status DC Fentanyl Citrate (Fentanyl 2ml Vial) 100 mcg STK-MED ONCE .ROUTE ; Start at 08:09; Stop 02/03/18 at 08:10; Status DC Rocuronium Greenwald (Zemuron) 50 mg STK-MED ONCE .ROUTE ; Start 02/03/18 at 08:09 ; Stop 02/03/18 at 08:10; Status DC Desflurane (Suprane) 60 ml STK-MED ONCE IH ; Start 02/03/18 at 08:09; Stop at 08:10; Status DC Dexamethasone Sodium Phosphate (Decadron) 20 mg STK-MED ONCE .ROUTE ; Start 02/03 at 08:09; Stop 02/03/18 at 08:10; Status DC Propofol 20 ml @ As Directed STK-MED ONCE IV ; Start 02/03/18 at 08:09; Stop 02/03 at 08:10; Status DC Lidocaine HCl (Lidocaine Pf 2% Vial) 5 ml STK-MED ONCE .ROUTE ; Start 02/03/18 at 08:09; Stop 02/03/18 at 08:10; Status DC Ondansetron HCl (Zofran) 4 mg STK-MED ONCE .ROUTE ; Start 02/03/18 at 08:09; Stop 02/03/18 at 08:10; Status DC Ketorolac Tromethamine (Toradol For Or Only) 30 mg STK-MED ONCE INJ ; Start 02/03 at 08:09; Stop 02/03/18 at 08:10; Status DC Ephedrine Sulfate (ePHEDrine PF IN SALINE SYRINGE) 50 mg STK-MED ONCE IV ; Start 02/03/18 at 08:15; Stop 02/03/18 at 08:16; Status DC Bupivacaine HCl/ Epinephrine Bitart (Marcaine-Epi 0.5%-[id number]) 50 ml STK-MED ONCE .ROUTE Last administered on 02/03/18at 09:49; Start 02/03/18 at 07:56; Stop 02/03/18 at 08:57; Status DC Iohexol (Omnipaque 300 Mg/ml) 100 ml STK-MED ONCE .ROUTE Last administered on at 09:49; Start 02/03/18 at 07:56; Stop 02/03/18 at 08:58; Status DC Phenylephrine HCl (PHENYLEPHRINE in 0.9% NACL PF) 1 mg STK-MED ONCE IV ; Start 02/03/18 at 09:24; Stop 02/03/18 at 09:25; Status DC Glycopyrrolate (Robinul) 1 mg STK-MED ONCE .ROUTE ; Start 02/03/18 at 09:55; Stop 02/03/18 at 09:56; Status DC Neostigmine Methylsulfate (Neostigmine Methylsulfate) 5 mg STK-MED ONCE .ROUTE ; Start 02/03/18 at 09:55; Stop 02/03/18 at 09:56; Status DC Albuterol Sulfate (Ventolin Neb Soln) 2.5 mg 1X PACU PRN NEB SHORTNESS OF BREATH Last administered on 02/03/18at 10:53; Start 02/03/18 at 11:00; Stop at 17:39; Status DC Diphenhydramine HCl (Benadryl) 25 mg PRN Q6HRS PRN PO ITCHING; Start 02/03/18 at 11:00 Diphenhydramine HCl (Benadryl) 25 mg PRN Q6HRS PRN IV ITCHING Last administered on 02/09/18at 22:30; Start 02/03/18 at 11:00 Enoxaparin Sodium (Lovenox 40mg Syringe) 40 mg Q24H SQ ; Start 02/03/18 at 11:00 ; Status Cancel Sodium Chloride (Normal Saline Flush) 3 ml QSHIFT PRN IV AFTER MEDS AND BLOOD DRAWS; Start 02/03/18 at 11:00 Potassium Chloride/Sodium Chloride 1,000 ml @ 75 mls/hr [id number] IV Last administered on 02/03/18at 23:55; Start 02/03/18 at 10:46; Stop 02/04/18 at 11:37; Status DC Dextrose (Dextrose 50%-Water Syringe) 12.5 gm PRN Q15MIN PRN IV SEE COMMENTS; Start 02/03/18 at 11:00 Oxycodone/ Acetaminophen (Percocet 5/325) 1 tab PRN Q4HRS PRN PO MILD PAIN, 1ST CHOICE Last administered on 02/12/18at 02:12; Start 02/03/18 at 11:00; Stop at 08:42; Status DC Oxycodone/ Acetaminophen (Percocet 5/325) 2 tab PRN Q4HRS PRN PO MODERATE PAIN , SEVERE PAIN; Start 02/03/18 at 11:00; Stop 02/12/18 at 08:42; Status DC Morphine Sulfate (Morphine Sulfate) 5 mg PRN Q3HRS PRN IV MODERATE TO SEVERE PAIN Last administered on 02/10/18at 17:55; Start 02/03/18 at 11:15 Docusate Sodium (Colace) 100 mg BID PO Last administered on 02/12/18at 08:21; Start 02/03/18 at 11:00 Ondansetron HCl (Zofran) 4 mg PRN Q6HRS PRN IV NAUESA, 1ST CHOICE Last administered on 02/12/18at 02:11; Start 02/03/18 at 11:00 Enoxaparin Sodium (Lovenox 40mg Syringe) 40 mg Q24H SQ ; Start 02/04/18 at 09:00 ; Stop 02/04/18 at 09:00; Status DC Hydralazine HCl (Apresoline Inj) 10 mg 1X PACU PRN IVP ELEVATED BP, SEE COMMENTS; Start 02/03/18 at 12:15; Stop 02/03/18 at 20:00; Status DC Oxycodone/ Acetaminophen (Percocet 5/325) 1 tab 1X PACU PRN PO PAIN Last administered on 02/03/18at 12:20; Start 02/03/18 at 12:15; Stop 02/03/18 at 20:00; Status DC Albuterol Sulfate (Ventolin Neb Soln) 2.5 mg PRN Q2HR PRN NEB [id number] Last administered on 02/12/18at 02:34; Start 02/03/18 at 15:00 Albuterol/ Ipratropium (Duoneb) 3 ml RTQID NEB Last administered on 02/12/18at 08:33; Start 02/03/18 at 16:00 Ondansetron HCl (Zofran) 4 mg PRN Q6HRS PRN IV NAUSEA/VOMITING; Start 02/04/18 at 07:00; Stop 02/05/18 at 06:59; Status DC Fentanyl Citrate (Fentanyl 2ml Vial) 25 mcg PRN Q5MIN PRN IV MILD PAIN; Start 02/04/18 at 07:00; Stop 02/05/18 at 06:59; Status DC Fentanyl Citrate (Fentanyl 2ml Vial) 50 mcg PRN Q5MIN PRN IV MODERATE TO SEVERE PAIN; Start 02/04/18 at 07:00; Stop 02/05/18 at 06:59; Status DC Morphine Sulfate (Morphine Sulfate) 1 mg PRN Q10MIN PRN IV SEVERE PAIN; Start 02/04/18 at 07:00; Stop 02/05/18 at 06:59; Status DC Ringer's Solution 1,000 ml @ 30 mls/hr Q24H IV ; Start 02/04/18 at 07:00; Stop 02/04/18 at 18:59; Status DC Lidocaine HCl (Xylocaine-Mpf 1% Vial) 2 ml PRN 1X PRN ID IV START; Start at 07:00; Stop 02/05/18 at 06:59; Status DC Prochlorperazine Edisylate (Compazine) 5 mg PACU PRN PRN IV NAUSEA, MRX1; Start 02/04/18 at 07:00; Stop 02/05/18 at 06:59; Status DC Furosemide (Lasix) 40 mg 1X ONCE IVP Last administered on 02/04/18at 12:47; Start 02/04/18 at 11:45; Stop 02/04/18 at 11:46; Status DC Sodium Chloride 1,000 ml @ 100 mls/hr Q10H IV Last administered on 02/05/18at 21 :05; Start 02/04/18 at 12:00; Stop 02/06/18 at 13:12; Status DC Hydralazine HCl (Apresoline Inj) 10 mg PRN Q4HRS PRN IVP ELEVATED BP, SEE COMMENTS Last administered on 02/10/18at 03:12; Start 02/04/18 at 12:15 Iohexol (Omnipaque 300 Mg/ml) 100 ml STK-MED ONCE .ROUTE ; Start 02/04/18 at 12: 11; Stop 02/04/18 at 12:12; Status DC Cefazolin Sodium/ Dextrose (Ancef 2gm Premix) 2 gm STK-MED ONCE IV ; Start at 07:00; Stop 02/04/18 at 12:31; Status DC Propofol 0 ml @ As Directed STK-MED ONCE IV ; Start 02/04/18 at 13:50; Stop at 13:51; Status DC Lidocaine HCl (Lidocaine Pf 2% Vial) 5 ml STK-MED ONCE .ROUTE ; Start 02/04/18 at 13:50; Stop 02/04/18 at 13:51; Status DC Famotidine (Pepcid Vial) 20 mg STK-MED ONCE .ROUTE ; Start 02/04/18 at 13:50; Stop 02/04/18 at 13:51; Status DC Dexamethasone Sodium Phosphate (Decadron) 20 mg STK-MED ONCE .ROUTE ; Start 02/04 at 13:50; Stop 02/04/18 at 13:52; Status DC Ondansetron HCl (Zofran) 4 mg STK-MED ONCE .ROUTE ; Start 02/04/18 at 13:50; Stop 02/04/18 at 13:52; Status DC Lorazepam (Ativan) 0.5 mg PRN Q8HRS PRN PO ANXIETY / AGITATION; Start 02/04/18 at 15:15 Furosemide (Lasix) 40 mg 1X ONCE IVP Last administered on 02/04/18at 17:00; Start 02/04/18 at 16:45; Stop 02/04/18 at 16:46; Status DC Ciprofloxacin/ Dextrose 200 ml @ 200 mls/hr Q12HR IV Last administered on at 08:10; Start 02/04/18 at 17:30; Stop 02/06/18 at 14:49; Status DC Metronidazole 100 ml @ 100 mls/hr Q12HR IV Last administered on 02/09/18at 20:52 ; Start 02/04/18 at 17:30; Stop 02/10/18 at 13:43; Status DC Metoclopramide HCl (Reglan Vial) 5 mg PRN Q6HRS PRN IV NAUSEA/VOMITING 2nd CHOICE Last administered on 02/05/18at 13:05; Start 02/04/18 at 17:30; Stop at 15:13; Status DC Lorazepam (Ativan) 0.5 mg PRN Q6HRS PRN IV ANXIETY / AGITATION 1ST CHOICE Last administered on 02/10/18at 08:18; Start 02/04/18 at 20:45 Acetaminophen (Tylenol) 500 mg PRN Q4HRS PRN PO FEVER; Start 02/04/18 at 22:15 Furosemide (Lasix) 40 mg 1X ONCE IVP Last administered on 02/05/18at 01:15; Start 02/05/18 at 01:30; Stop 02/05/18 at 01:31; Status DC Ringer's Solution 1,000 ml @ 75 mls/hr [id number] IV Last administered on at 09:52; Start 02/05/18 at 10:00; Stop 02/06/18 at 13:12; Status DC Iohexol (Omnipaque 300 Mg/ml) 100 ml STK-MED ONCE .ROUTE ; Start 02/05/18 at 10: 10; Stop 02/05/18 at 10:11; Status DC Fentanyl Citrate (Fentanyl 2ml Vial) 100 mcg STK-MED ONCE .ROUTE ; Start at 10:33; Stop 02/05/18 at 10:34; Status DC Ondansetron HCl (Zofran) 4 mg STK-MED ONCE .ROUTE ; Start 02/05/18 at 11:01; Stop 02/05/18 at 11:03; Status DC Iohexol (Omnipaque 300 Mg/ml) 100 ml STK-MED ONCE IV Last administered on at 11:27; Start 02/05/18 at 11:27; Stop 02/05/18 at 11:29; Status DC Haloperidol Lactate (Haldol Inj) 5 mg PRN Q6HRS PRN IVP AGITATION 2ND CHOICE Last administered on 02/10/18at 09:00; Start 02/05/18 at 12:30 Ciprofloxacin/ Dextrose 200 ml @ 200 mls/hr Q24H IV Last administered on at 08:25; Start 02/07/18 at 08:00 Magnesium Sulfate 50 ml @ 25 mls/hr PRN DAILY PRN IV for Mag < 1.7 on am labs; Start 02/07/18 at 09:00 Darbepoetin Rob (Aranesp) 60 mcg [id number] SQ Last administered on 02/07/18at 21: 30; Start 02/07/18 at 21:00 Lactobacillus Rhamnosus (Culturelle) 1 cap BID PO Last administered on at 08:21; Start 02/08/18 at 21:00 Sodium Chloride 1,000 ml @ 125 mls/hr Q8H IV Last administered on 02/09/18at 04: 39; Start 02/08/18 at 10:00; Stop 02/09/18 at 10:23; Status DC Furosemide (Lasix) 40 mg 1X ONCE IVP Last administered on 02/08/18at 12:07; Start 02/08/18 at 11:30; Stop 02/08/18 at 11:31; Status DC Amino Acids/ Glycerin/ Electrolytes 1,000 ml @ 75 mls/hr [id number] IV Last administered on 02/10/18at 05:43; Start 02/08/18 at 12:00; Stop 02/11/18 at 12:42; Status DC Sodium Bicarbonate (Sodium Bicarb Adult 8.4% Syr) 50 meq 1X ONCE IV Last administered on 02/08/18at 12:08; Start 02/08/18 at 12:30; Stop 02/08/18 at 12:31; Status DC Albuterol/ Ipratropium (Duoneb) 3 ml STK-MED ONCE .ROUTE ; Start 02/08/18 at 19: 39; Stop 02/08/18 at 19:40; Status DC Neostigmine Methylsulfate (Neostigmine Methylsulfate) 5 mg STK-MED ONCE .ROUTE ; Start 02/06/18 at 12:00; Stop 02/09/18 at 06:52; Status DC Lidocaine HCl (Lidocaine HCl 2% Abboject) 100 mg STK-MED ONCE .ROUTE ; Start 02/06/18 at 12:00; Stop 02/09/18 at 06:52; Status DC Phenylephrine HCl (PHENYLEPHRINE in 0.9% NACL PF) 2 mg STK-MED ONCE IV ; Start 02/06/18 at 12:00; Stop 02/09/18 at 06:52; Status DC Propofol (Diprivan) 200 mg STK-MED ONCE IV ; Start 02/06/18 at 12:00; Stop at 06:52; Status DC Glycopyrrolate (Robinul) 1 mg STK-MED ONCE .ROUTE ; Start 02/06/18 at 12:00; Stop 02/09/18 at 06:52; Status DC Dexamethasone Sodium Phosphate (Decadron) 20 mg STK-MED ONCE .ROUTE ; Start 02/06 at 12:00; Stop 02/09/18 at 06:52; Status DC Metoprolol Tartrate (Lopressor Vial) 5 mg PRN Q6HRS PRN IVP TACHYCARDIA; Start 02/09/18 at 12:45 Quetiapine Fumarate (SEROquel) 50 mg QHS PO Last administered on 02/09/18at 20:53 ; Start 02/09/18 at 21:00; Stop 02/10/18 at 14:54; Status DC Metronidazole 100 ml @ 100 mls/hr Q12H IV Last administered on 02/11/18at 02:01 ; Start 02/10/18 at 14:00; Stop 02/11/18 at 12:42; Status DC Dextrose/Sodium Chloride 1,000 ml @ 75 mls/hr [id number] IV Last administered on 02/11/18at 03:35; Start 02/10/18 at 14:15; Stop 02/11/18 at 12:42; Status DC Quetiapine Fumarate (SEROquel) 50 mg BID PO Last administered on 02/11/18 20:28 ; Start 02/10/18 at 15:00; Stop 02/12/18 at 08:42; Status DC Dextrose 1,000 ml @ 100 mls/hr Q10H IV Last administered on 02/12/18at 05:41; Start 02/11/18 at 10:45; Stop 02/12/18 at 08:42; Status DC Doxycycline Hyclate (Vibra-Tab) 100 mg BID PO Last administered on 02/12/18at 08 :20; Start 02/11/18 at 11:30 Metronidazole (Flagyl) 500 mg Q12HR PO Last administered on 02/12/18 08:21; Start 02/11/18 at 14:00 Amiodarone HCl (Cordarone) 100 mg DAILY PO Last administered on 02/12/18 08:21 ; Start 02/11/18 at 14:00 Atorvastatin Calcium (Lipitor) 10 mg HS PO Last administered on 02/11/18 20:28 ; Start 02/11/18 at 21:00 Metoprolol Succinate (Toprol Xl) 25 mg QPM PO Last administered on 02/11/18at 18: 02; Start 02/11/18 at 18:00 Active Scripts Active Reported Ferrous Sulfate 325 Mg Tablet 1 Tab PO DAILY Super B Complex-Vitamin C (B Complex With Vitamin C) 1 Each Tablet 1 Each PO Warfarin Sodium 5 Mg Tablet 7.5 Mg PO QTUTHSA Amiodarone Hcl 200 Mg Tablet 100 Mg PO DAILY Furosemide 20 Mg Tablet 10 Mg PO QMWF Metoprolol Succinate ( Xl ) (Metoprolol Succinate) 25 Mg Tab.er.24h 1 Tab PO QPM Calcitriol 0.25 Mcg Capsule 0.25 Mcg PO QM-W-F Warfarin Sodium 5 Mg Tablet 5 Mg PO QMWF Loratadine 10 Mg Tablet 10 Mg PO QHS Tamsulosin Hcl 0.4 Mg Cap.er.24h 0.4 Mg PO QHS Atorvastatin Calcium 10 Mg Tablet 10 Mg PO HS Duoneb 0.5-3(2.5) Mg/3 Ml (Albuterol/Ipratropium) 3 Ml Ampul.neb 3 Ml IH TID PRN Flonase (Fluticasone Propionate) 16 Gm [place].susp 2 [place] NS BID Allergies Allergies: Coded Allergies: No Known Drug Allergies (Unverified , 02/05/18) ROS Review of System moderately Confused, hence limited. But otherwise A 14 point ROS was completed with the following noted as positive: Other systems reviewed and negative. \CONSTITUTIONAL: No fever or chills EYES: No recent changes SKIN: No rash or itching CARDIOVASCULAR: No chest pain, syncope, palpitations, or edema RESPIRATORY: No SOB or cough GASTROINTESTINAL: No nausea, vomiting or abdominal pain NEUROLOGICAL: No headaches or weakness ENDOCRINE: No cold or heat intolerance GENITOURINARY: No urgency or frequency of urination MUSCULOSKELETAL: No back pain or joint pain LYMPHATICS: No enlarged lymph nodes PSYCHIATRIC: No anxiety or depression Physical Exam General: Alert, Oriented X3, Cooperative, No acute distress HEENT: Atraumatic, PERRLA, Mucous membr. moist/pink Lungs: Clear to auscultation Heart: Regular rate, Normal S1, Normal S2, No murmurs Abdomen: Normal bowel sounds, Soft, No tenderness, No hepatosplenomegaly, No masses Extremities: No clubbing, No cyanosis Skin: No breakdown, No significant lesion, Other (postop wound, sutures looking good, no tenderness around that site) Neuro: Normal gait, Normal speech, Normal tone, Sensation intact, Reflexes 2+ Psych/Mental Status: Mental status NL, Mood NL Vitals VITALS Vital Signs Date Time Temp Pulse Resp B/P (MAP) Pulse Ox O2 Delivery O2 Flow Rate FiO2 02/12/18 08:35 97 Nasal Cannula 4.0 02/12/18 08:21 72 115/61 02/12/18 07:44 98.1 16 98.1 Labs Labs Laboratory Tests Test 02/10/18 11:20 02/11/18 08:42 02/12/18 07:15 O2 Saturation 96 % (92-99) Arterial Blood pH 7.41 (7.35-7.45) Arterial Blood pCO2 at Patient Temp 37 mmHg (35-46) Arterial Blood pO2 at Patient Temp 84 mmHg (65-108) Arterial Blood HCO3 23 mmol/L (21-28) Arterial Blood Base Excess -1 mmol/L (-3-3) FiO2 40 Sodium Level 150 mmol/L (136-145) 147 mmol/L (136-145) Potassium Level 4.0 mmol/L (3.5-5.1) 3.7 mmol/L (3.5-5.1) Chloride Level 117 mmol/L (98-107) 114 mmol/L (98-107) Carbon Dioxide Level 28 mmol/L (21-32) 27 mmol/L (21-32) Anion Gap 5 (6-14) 6 (6-14) Blood Urea Nitrogen 56 mg/dL (8-26) 51 mg/dL (8-26) Creatinine 1.4 mg/dL (0.7-1.3) 1.4 mg/dL (0.7-1.3) Estimated GFR (Cockcroft-Gault) 49.3 49.3 Glucose Level 128 mg/dL (70-99) 117 mg/dL (70-99) Calcium Level 10.5 mg/dL (8.5-10.1) 10.2 mg/dL (8.5-10.1) Phosphorus Level 2.5 mg/dL (2.6-4.7) 3.0 mg/dL (2.6-4.7) Magnesium Level 1.8 mg/dL (1.8-2.4) 1.6 mg/dL (1.8-2.4) Albumin 2.1 g/dL (3.4-5.0) 1.9 g/dL (3.4-5.0) Laboratory Tests Test 02/12/18 07:15 Sodium Level 147 mmol/L (136-145) Potassium Level 3.7 mmol/L (3.5-5.1) Chloride Level 114 mmol/L (98-107) Carbon Dioxide Level 27 mmol/L (21-32) Anion Gap 6 (6-14) Blood Urea Nitrogen 51 mg/dL (8-26) Creatinine 1.4 mg/dL (0.7-1.3) Estimated GFR (Cockcroft-Gault) 49.3 Glucose Level 117 mg/dL (70-99) Calcium Level 10.2 mg/dL (8.5-10.1) Phosphorus Level 3.0 mg/dL (2.6-4.7) Magnesium Level 1.6 mg/dL (1.8-2.4) Albumin 1.9 g/dL (3.4-5.0) Assessment/Plan Assessment/Plan Status post lap cholecystectomy by general surgery-primary service Postop confusion Metabolic encephalopathy, likely secondary to Seroquel and Percocet Generalized weakness Hypernatremia in the setting of nothing by mouth or dysphagia diet SIRS, leukocytosis AK I/VMN on CK D History of CAD, with indwelling stents Anemia of chronic disease Mild thrombocytopenia dysphagia Plan: I agree with Holding Seroquel Percocet PT OT GLASS CYLINDER FLANGER intermittent eval Supportive care Thanks for consulting us, we'll follow along with you FULL CODE dw with RN and sitter at bedside RICO MICHEL MD Feb 12, 2018 09:48
--- NOTE | 2018-02-12 10:20 | PDOC ---
Objective: Objective: Reviewed w/ RN - currently sleeping but was confused after receiving Seroquel and Percocet overnight. Vital Signs: Vital Signs Date Time Temp Pulse Resp B/P (MAP) Pulse Ox O2 Delivery O2 Flow Rate FiO2 02/12/18 08:35 97 Nasal Cannula 4.0 02/12/18 08:21 72 115/61 02/12/18 07:44 98.1 16 98.1 Labs: Laboratory Tests Test 02/12/18 07:15 Sodium Level 147 mmol/L Potassium Level 3.7 mmol/L Chloride Level 114 mmol/L Carbon Dioxide Level 27 mmol/L Anion Gap 6 Blood Urea Nitrogen 51 mg/dL Creatinine 1.4 mg/dL Estimated GFR (Cockcroft-Gault) 49.3 Glucose Level 117 mg/dL Calcium Level 10.2 mg/dL Phosphorus Level 3.0 mg/dL Magnesium Level 1.6 mg/dL Albumin 1.9 g/dL PE: GEN: NAD, has 1:1 obs LUNGS: room air NEURO/PSYCH: sleeping, did not awaken A/P: Post-op delirium S/p ERCP - LFTs essentially normal on 02/09 -- Percocet and Seroquel stopped, continue supportive care - he was anxious to work w/ therapy yesterday. BI WILCOX Feb 12, 2018 10:20
--- NOTE | 2018-02-12 10:29 | PDOC ---
PROGRESS NOTES Assessment Postoperative delirium, metabolic issues including renal insufficiency and COPD , but no bedside evidence of stroke, ongoing seizure activity, or central nervous system infection. Head CT was negative Elevated ESR Labs so far negative or pending Plan Discontinue Seroquel and Percocet at 's request 1:1 nursing Repeat ESR 1-2 weeks Discussed with the patient's . Subjective thinks that the Seroquel and Percocet he got last night made him loopy today Objective Vital Signs Date Time Temp Pulse Resp B/P (MAP) Pulse Ox O2 Delivery O2 Flow Rate FiO2 02/12/18 08:35 97 Nasal Cannula 4.0 02/12/18 08:21 72 115/61 02/12/18 07:44 98.1 16 98.1 Intake and Output 02/12/18 07:00 Output Total 575 ml Balance -575 ml Output Urine Total 575 ml # Voids 6 # Bowel Movements 1 PHYSICAL EXAM He knows name, follows commands, knows location, not date PERRL. EOMI. CN: no focal findings. Muscle tone: normal. Muscle strength: 4/5 DTR: 1+ Plantar reflex: flexor Gait: not examined in bed. Sensory exam: no abnormal findings. No cerebellar signs elicited. Review of Relevant I have reviewed the following items aron (where applicable) has been applied. Labs Laboratory Tests Test 02/10/18 11:20 02/11/18 08:42 02/12/18 07:15 O2 Saturation 96 % (92-99) Arterial Blood pH 7.41 (7.35-7.45) Arterial Blood pCO2 at Patient Temp 37 mmHg (35-46) Arterial Blood pO2 at Patient Temp 84 mmHg (65-108) Arterial Blood HCO3 23 mmol/L (21-28) Arterial Blood Base Excess -1 mmol/L (-3-3) FiO2 40 Sodium Level 150 mmol/L (136-145) 147 mmol/L (136-145) Potassium Level 4.0 mmol/L (3.5-5.1) 3.7 mmol/L (3.5-5.1) Chloride Level 117 mmol/L (98-107) 114 mmol/L (98-107) Carbon Dioxide Level 28 mmol/L (21-32) 27 mmol/L (21-32) Anion Gap 5 (6-14) 6 (6-14) Blood Urea Nitrogen 56 mg/dL (8-26) 51 mg/dL (8-26) Creatinine 1.4 mg/dL (0.7-1.3) 1.4 mg/dL (0.7-1.3) Estimated GFR (Cockcroft-Gault) 49.3 49.3 Glucose Level 128 mg/dL (70-99) 117 mg/dL (70-99) Calcium Level 10.5 mg/dL (8.5-10.1) 10.2 mg/dL (8.5-10.1) Phosphorus Level 2.5 mg/dL (2.6-4.7) 3.0 mg/dL (2.6-4.7) Magnesium Level 1.8 mg/dL (1.8-2.4) 1.6 mg/dL (1.8-2.4) Albumin 2.1 g/dL (3.4-5.0) 1.9 g/dL (3.4-5.0) Laboratory Tests Test 02/12/18 07:15 Sodium Level 147 mmol/L (136-145) Potassium Level 3.7 mmol/L (3.5-5.1) Chloride Level 114 mmol/L (98-107) Carbon Dioxide Level 27 mmol/L (21-32) Anion Gap 6 (6-14) Blood Urea Nitrogen 51 mg/dL (8-26) Creatinine 1.4 mg/dL (0.7-1.3) Estimated GFR (Cockcroft-Gault) 49.3 Glucose Level 117 mg/dL (70-99) Calcium Level 10.2 mg/dL (8.5-10.1) Phosphorus Level 3.0 mg/dL (2.6-4.7) Magnesium Level 1.6 mg/dL (1.8-2.4) Albumin 1.9 g/dL (3.4-5.0) Microbiology 02/04/18 Blood Culture - Final, Complete NO GROWTH AFTER 5 DAYS 02/08/18 - Final, Resulted 02/08/18 - Final, Resulted 02/08/18 - Final, Resulted 02/08/18 - Final, Resulted 02/08/18 Gram Stain Evaluation - Final, Resulted 02/08/18 Sputum Culture - Preliminary, Resulted 02/08/18 Sputum Result 1 - Final, Resulted 8/6/18 Sputum Result 2 - Final, Resulted Medications Current Medications Ondansetron HCl (Zofran) 4 mg PRN Q6HRS PRN IV NAUSEA/VOMITING Last administered on 02/04/18at 04:08; Start 02/03/18 at 07:00; Stop 02/04/18 at 06:59; Status DC Fentanyl Citrate (Fentanyl 2ml Vial) 25 mcg PRN Q5MIN PRN IV MILD PAIN Last administered on 02/03/18at 12:13; Start 02/03/18 at 07:00; Stop 02/04/18 at 06:59; Status DC Fentanyl Citrate (Fentanyl 2ml Vial) 50 mcg PRN Q5MIN PRN IV MODERATE TO SEVERE PAIN; Start 02/03/18 at 07:00; Stop 02/04/18 at 06:59; Status DC Morphine Sulfate (Morphine Sulfate) 1 mg PRN Q10MIN PRN IV SEVERE PAIN Last administered on 02/03/18at 11:42; Start 02/03/18 at 07:00; Stop 02/04/18 at 06:59; Status DC Ringer's Solution 1,000 ml @ 30 mls/hr Q24H IV Last administered on 02/03/18at 09:13; Start 02/03/18 at 07:00; Stop 02/03/18 at 18:59; Status DC Lidocaine HCl (Xylocaine-Mpf 1% Vial) 2 ml PRN 1X PRN ID PRIOR TO IV START; Start 02/03/18 at 07:00; Stop 02/04/18 at 06:59; Status DC Prochlorperazine Edisylate (Compazine) 5 mg PACU PRN PRN IV NAUSEA, MRX1; Start 02/03/18 at 07:00; Stop 02/04/18 at 06:59; Status DC Cefazolin Sodium/ Dextrose 50 ml @ 100 mls/hr 1X PREOP PRN IV PRIOR TO SURGERY Last administered on 02/03/18at 09:35; Start 02/03/18 at 08:00; Stop at 14:44; Status DC Fentanyl Citrate (Fentanyl 2ml Vial) 100 mcg STK-MED ONCE .ROUTE ; Start at 08:09; Stop 02/03/18 at 08:10; Status DC Rocuronium Hepzibah (Zemuron) 50 mg STK-MED ONCE .ROUTE ; Start 02/03/18 at 08:09 ; Stop 02/03/18 at 08:10; Status DC Desflurane (Suprane) 60 ml STK-MED ONCE IH ; Start 02/03/18 at 08:09; Stop at 08:10; Status DC Dexamethasone Sodium Phosphate (Decadron) 20 mg STK-MED ONCE .ROUTE ; Start 02/03 at 08:09; Stop 02/03/18 at 08:10; Status DC Propofol 20 ml @ As Directed STK-MED ONCE IV ; Start 02/03/18 at 08:09; Stop 02/03 at 08:10; Status DC Lidocaine HCl (Lidocaine Pf 2% Vial) 5 ml STK-MED ONCE .ROUTE ; Start 02/03/18 at 08:09; Stop 02/03/18 at 08:10; Status DC Ondansetron HCl (Zofran) 4 mg STK-MED ONCE .ROUTE ; Start 02/03/18 at 08:09; Stop 02/03/18 at 08:10; Status DC Ketorolac Tromethamine (Toradol For Or Only) 30 mg STK-MED ONCE INJ ; Start 02/03 at 08:09; Stop 02/03/18 at 08:10; Status DC Ephedrine Sulfate (ePHEDrine PF IN SALINE SYRINGE) 50 mg STK-MED ONCE IV ; Start 02/03/18 at 08:15; Stop 02/03/18 at 08:16; Status DC Bupivacaine HCl/ Epinephrine Bitart (Marcaine-Epi 0.5%-[id number]) 50 ml STK-MED ONCE .ROUTE Last administered on 02/03/18at 09:49; Start 02/03/18 at 07:56; Stop 02/03/18 at 08:57; Status DC Iohexol (Omnipaque 300 Mg/ml) 100 ml STK-MED ONCE .ROUTE Last administered on at 09:49; Start 02/03/18 at 07:56; Stop 02/03/18 at 08:58; Status DC Phenylephrine HCl (PHENYLEPHRINE in 0.9% NACL PF) 1 mg STK-MED ONCE IV ; Start 02/03/18 at 09:24; Stop 02/03/18 at 09:25; Status DC Glycopyrrolate (Robinul) 1 mg STK-MED ONCE .ROUTE ; Start 02/03/18 at 09:55; Stop 02/03/18 at 09:56; Status DC Neostigmine Methylsulfate (Neostigmine Methylsulfate) 5 mg STK-MED ONCE .ROUTE ; Start 02/03/18 at 09:55; Stop 02/03/18 at 09:56; Status DC Albuterol Sulfate (Ventolin Neb Soln) 2.5 mg 1X PACU PRN NEB SHORTNESS OF BREATH Last administered on 02/03/18at 10:53; Start 02/03/18 at 11:00; Stop at 17:39; Status DC Diphenhydramine HCl (Benadryl) 25 mg PRN Q6HRS PRN PO ITCHING; Start 02/03/18 at 11:00 Diphenhydramine HCl (Benadryl) 25 mg PRN Q6HRS PRN IV ITCHING Last administered on 02/09/18at 22:30; Start 02/03/18 at 11:00 Enoxaparin Sodium (Lovenox 40mg Syringe) 40 mg Q24H SQ ; Start 02/03/18 at 11:00 ; Status Cancel Sodium Chloride (Normal Saline Flush) 3 ml QSHIFT PRN IV AFTER MEDS AND BLOOD DRAWS; Start 02/03/18 at 11:00 Potassium Chloride/Sodium Chloride 1,000 ml @ 75 mls/hr [id number] IV Last administered on 02/03/18at 23:55; Start 02/03/18 at 10:46; Stop 02/04/18 at 11:37; Status DC Dextrose (Dextrose 50%-Water Syringe) 12.5 gm PRN Q15MIN PRN IV SEE COMMENTS; Start 02/03/18 at 11:00 Oxycodone/ Acetaminophen (Percocet 5/325) 1 tab PRN Q4HRS PRN PO MILD PAIN, 1ST CHOICE Last administered on 02/12/18at 02:12; Start 02/03/18 at 11:00; Stop at 08:42; Status DC Oxycodone/ Acetaminophen (Percocet 5/325) 2 tab PRN Q4HRS PRN PO MODERATE PAIN , SEVERE PAIN; Start 02/03/18 at 11:00; Stop 02/12/18 at 08:42; Status DC Morphine Sulfate (Morphine Sulfate) 5 mg PRN Q3HRS PRN IV MODERATE TO SEVERE PAIN Last administered on 02/10/18at 17:55; Start 02/03/18 at 11:15 Docusate Sodium (Colace) 100 mg BID PO Last administered on 02/12/18at 08:21; Start 02/03/18 at 11:00 Ondansetron HCl (Zofran) 4 mg PRN Q6HRS PRN IV NAUESA, 1ST CHOICE Last administered on 02/12/18at 02:11; Start 02/03/18 at 11:00 Enoxaparin Sodium (Lovenox 40mg Syringe) 40 mg Q24H SQ ; Start 02/04/18 at 09:00 ; Stop 02/04/18 at 09:00; Status DC Hydralazine HCl (Apresoline Inj) 10 mg 1X PACU PRN IVP ELEVATED BP, SEE COMMENTS; Start 02/03/18 at 12:15; Stop 02/03/18 at 20:00; Status DC Oxycodone/ Acetaminophen (Percocet 5/325) 1 tab 1X PACU PRN PO PAIN Last administered on 02/03/18at 12:20; Start 02/03/18 at 12:15; Stop 02/03/18 at 20:00; Status DC Albuterol Sulfate (Ventolin Neb Soln) 2.5 mg PRN Q2HR PRN NEB [id number] Last administered on 02/12/18at 02:34; Start 02/03/18 at 15:00 Albuterol/ Ipratropium (Duoneb) 3 ml RTQID NEB Last administered on 02/12/18at 08:33; Start 02/03/18 at 16:00 Ondansetron HCl (Zofran) 4 mg PRN Q6HRS PRN IV NAUSEA/VOMITING; Start 02/04/18 at 07:00; Stop 02/05/18 at 06:59; Status DC Fentanyl Citrate (Fentanyl 2ml Vial) 25 mcg PRN Q5MIN PRN IV MILD PAIN; Start 02/04/18 at 07:00; Stop 02/05/18 at 06:59; Status DC Fentanyl Citrate (Fentanyl 2ml Vial) 50 mcg PRN Q5MIN PRN IV MODERATE TO SEVERE PAIN; Start 02/04/18 at 07:00; Stop 02/05/18 at 06:59; Status DC Morphine Sulfate (Morphine Sulfate) 1 mg PRN Q10MIN PRN IV SEVERE PAIN; Start 02/04/18 at 07:00; Stop 02/05/18 at 06:59; Status DC Ringer's Solution 1,000 ml @ 30 mls/hr Q24H IV ; Start 02/04/18 at 07:00; Stop 02/04/18 at 18:59; Status DC Lidocaine HCl (Xylocaine-Mpf 1% Vial) 2 ml PRN 1X PRN ID IV START; Start at 07:00; Stop 02/05/18 at 06:59; Status DC Prochlorperazine Edisylate (Compazine) 5 mg PACU PRN PRN IV NAUSEA, MRX1; Start 02/04/18 at 07:00; Stop 02/05/18 at 06:59; Status DC Furosemide (Lasix) 40 mg 1X ONCE IVP Last administered on 02/04/18at 12:47; Start 02/04/18 at 11:45; Stop 02/04/18 at 11:46; Status DC Sodium Chloride 1,000 ml @ 100 mls/hr Q10H IV Last administered on 02/05/18at 21 :05; Start 02/04/18 at 12:00; Stop 02/06/18 at 13:12; Status DC Hydralazine HCl (Apresoline Inj) 10 mg PRN Q4HRS PRN IVP ELEVATED BP, SEE COMMENTS Last administered on 02/10/18at 03:12; Start 02/04/18 at 12:15 Iohexol (Omnipaque 300 Mg/ml) 100 ml STK-MED ONCE .ROUTE ; Start 02/04/18 at 12: 11; Stop 02/04/18 at 12:12; Status DC Cefazolin Sodium/ Dextrose (Ancef 2gm Premix) 2 gm STK-MED ONCE IV ; Start at 07:00; Stop 02/04/18 at 12:31; Status DC Propofol 0 ml @ As Directed STK-MED ONCE IV ; Start 02/04/18 at 13:50; Stop at 13:51; Status DC Lidocaine HCl (Lidocaine Pf 2% Vial) 5 ml STK-MED ONCE .ROUTE ; Start 02/04/18 at 13:50; Stop 02/04/18 at 13:51; Status DC Famotidine (Pepcid Vial) 20 mg STK-MED ONCE .ROUTE ; Start 02/04/18 at 13:50; Stop 02/04/18 at 13:51; Status DC Dexamethasone Sodium Phosphate (Decadron) 20 mg STK-MED ONCE .ROUTE ; Start 02/04 at 13:50; Stop 02/04/18 at 13:52; Status DC Ondansetron HCl (Zofran) 4 mg STK-MED ONCE .ROUTE ; Start 02/04/18 at 13:50; Stop 02/04/18 at 13:52; Status DC Lorazepam (Ativan) 0.5 mg PRN Q8HRS PRN PO ANXIETY / AGITATION; Start 02/04/18 at 15:15 Furosemide (Lasix) 40 mg 1X ONCE IVP Last administered on 02/04/18at 17:00; Start 02/04/18 at 16:45; Stop 02/04/18 at 16:46; Status DC Ciprofloxacin/ Dextrose 200 ml @ 200 mls/hr Q12HR IV Last administered on at 08:10; Start 02/04/18 at 17:30; Stop 02/06/18 at 14:49; Status DC Metronidazole 100 ml @ 100 mls/hr Q12HR IV Last administered on 02/09/18at 20:52 ; Start 02/04/18 at 17:30; Stop 02/10/18 at 13:43; Status DC Metoclopramide HCl (Reglan Vial) 5 mg PRN Q6HRS PRN IV NAUSEA/VOMITING 2nd CHOICE Last administered on 02/05/18at 13:05; Start 02/04/18 at 17:30; Stop at 15:13; Status DC Lorazepam (Ativan) 0.5 mg PRN Q6HRS PRN IV ANXIETY / AGITATION 1ST CHOICE Last administered on 02/10/18at 08:18; Start 02/04/18 at 20:45 Acetaminophen (Tylenol) 500 mg PRN Q4HRS PRN PO FEVER; Start 02/04/18 at 22:15 Furosemide (Lasix) 40 mg 1X ONCE IVP Last administered on 02/05/18at 01:15; Start 02/05/18 at 01:30; Stop 02/05/18 at 01:31; Status DC Ringer's Solution 1,000 ml @ 75 mls/hr [id number] IV Last administered on at 09:52; Start 02/05/18 at 10:00; Stop 02/06/18 at 13:12; Status DC Iohexol (Omnipaque 300 Mg/ml) 100 ml STK-MED ONCE .ROUTE ; Start 02/05/18 at 10: 10; Stop 02/05/18 at 10:11; Status DC Fentanyl Citrate (Fentanyl 2ml Vial) 100 mcg STK-MED ONCE .ROUTE ; Start at 10:33; Stop 02/05/18 at 10:34; Status DC Ondansetron HCl (Zofran) 4 mg STK-MED ONCE .ROUTE ; Start 02/05/18 at 11:01; Stop 02/05/18 at 11:03; Status DC Iohexol (Omnipaque 300 Mg/ml) 100 ml STK-MED ONCE IV Last administered on at 11:27; Start 02/05/18 at 11:27; Stop 02/05/18 at 11:29; Status DC Haloperidol Lactate (Haldol Inj) 5 mg PRN Q6HRS PRN IVP AGITATION 2ND CHOICE Last administered on 02/10/18at 09:00; Start 02/05/18 at 12:30 Ciprofloxacin/ Dextrose 200 ml @ 200 mls/hr Q24H IV Last administered on at 08:25; Start 02/07/18 at 08:00; Stop 02/12/18 at 09:45; Status DC Magnesium Sulfate 50 ml @ 25 mls/hr PRN DAILY PRN IV for Mag < 1.7 on am labs; Start 02/07/18 at 09:00 Darbepoetin Rob (Aranesp) 60 mcg [id number] SQ Last administered on 02/07/18at 21: 30; Start 02/07/18 at 21:00 Lactobacillus Rhamnosus (Culturelle) 1 cap BID PO Last administered on at 08:21; Start 02/08/18 at 21:00 Sodium Chloride 1,000 ml @ 125 mls/hr Q8H IV Last administered on 02/09/18at 04: 39; Start 02/08/18 at 10:00; Stop 02/09/18 at 10:23; Status DC Furosemide (Lasix) 40 mg 1X ONCE IVP Last administered on 02/08/18at 12:07; Start 02/08/18 at 11:30; Stop 02/08/18 at 11:31; Status DC Amino Acids/ Glycerin/ Electrolytes 1,000 ml @ 75 mls/hr [id number] IV Last administered on 02/10/18at 05:43; Start 02/08/18 at 12:00; Stop 02/11/18 at 12:42; Status DC Sodium Bicarbonate (Sodium Bicarb Adult 8.4% Syr) 50 meq 1X ONCE IV Last administered on 02/08/18at 12:08; Start 02/08/18 at 12:30; Stop 02/08/18 at 12:31; Status DC Albuterol/ Ipratropium (Duoneb) 3 ml STK-MED ONCE .ROUTE ; Start 02/08/18 at 19: 39; Stop 02/08/18 at 19:40; Status DC Neostigmine Methylsulfate (Neostigmine Methylsulfate) 5 mg STK-MED ONCE .ROUTE ; Start 02/06/18 at 12:00; Stop 02/09/18 at 06:52; Status DC Lidocaine HCl (Lidocaine HCl 2% Abboject) 100 mg STK-MED ONCE .ROUTE ; Start 02/06/18 at 12:00; Stop 02/09/18 at 06:52; Status DC Phenylephrine HCl (PHENYLEPHRINE in 0.9% NACL PF) 2 mg STK-MED ONCE IV ; Start 02/06/18 at 12:00; Stop 02/09/18 at 06:52; Status DC Propofol (Diprivan) 200 mg STK-MED ONCE IV ; Start 02/06/18 at 12:00; Stop at 06:52; Status DC Glycopyrrolate (Robinul) 1 mg STK-MED ONCE .ROUTE ; Start 02/06/18 at 12:00; Stop 02/09/18 at 06:52; Status DC Dexamethasone Sodium Phosphate (Decadron) 20 mg STK-MED ONCE .ROUTE ; Start 02/06 at 12:00; Stop 02/09/18 at 06:52; Status DC Metoprolol Tartrate (Lopressor Vial) 5 mg PRN Q6HRS PRN IVP TACHYCARDIA; Start 02/09/18 at 12:45 Quetiapine Fumarate (SEROquel) 50 mg QHS PO Last administered on 02/09/18at 20:53 ; Start 02/09/18 at 21:00; Stop 02/10/18 at 14:54; Status DC Metronidazole 100 ml @ 100 mls/hr Q12H IV Last administered on 02/11/18at 02:01 ; Start 02/10/18 at 14:00; Stop 02/11/18 at 12:42; Status DC Dextrose/Sodium Chloride 1,000 ml @ 75 mls/hr [id number] IV Last administered on 02/11/18at 03:35; Start 02/10/18 at 14:15; Stop 02/11/18 at 12:42; Status DC Quetiapine Fumarate (SEROquel) 50 mg BID PO Last administered on 02/11/18at 20:28 ; Start 02/10/18 at 15:00; Stop 02/12/18 at 08:42; Status DC Dextrose 1,000 ml @ 100 mls/hr Q10H IV Last administered on 02/12/18at 05:41; Start 02/11/18 at 10:45; Stop 02/12/18 at 08:42; Status DC Doxycycline Hyclate (Vibra-Tab) 100 mg BID PO Last administered on 02/12/18at 08 :20; Start 02/11/18 at 11:30 Metronidazole (Flagyl) 500 mg Q12HR PO Last administered on 02/12/18at 08:21; Start 02/11/18 at 14:00 Amiodarone HCl (Cordarone) 100 mg DAILY PO Last administered on 02/12/18at 08:21 ; Start 02/11/18 at 14:00 Atorvastatin Calcium (Lipitor) 10 mg HS PO Last administered on 02/11/18at 20:28 ; Start 02/11/18 at 21:00 Metoprolol Succinate (Toprol Xl) 25 mg QPM PO Last administered on 02/11/18at 18: 02; Start 02/11/18 at 18:00 Ciprofloxacin (Cipro) 500 mg BID PO ; Start 02/12/18 at 21:00 Active Scripts Active Reported Ferrous Sulfate 325 Mg Tablet 1 Tab PO DAILY Super B Complex-Vitamin C (B Complex With Vitamin C) 1 Each Tablet 1 Each PO Warfarin Sodium 5 Mg Tablet 7.5 Mg PO QTUTHSA Amiodarone Hcl 200 Mg Tablet 100 Mg PO DAILY Furosemide 20 Mg Tablet 10 Mg PO QMWF Metoprolol Succinate ( Xl ) (Metoprolol Succinate) 25 Mg Tab.er.24h 1 Tab PO QPM Calcitriol 0.25 Mcg Capsule 0.25 Mcg PO QM-W-F Warfarin Sodium 5 Mg Tablet 5 Mg PO QMWF Loratadine 10 Mg Tablet 10 Mg PO QHS Tamsulosin Hcl 0.4 Mg Cap.er.24h 0.4 Mg PO QHS Atorvastatin Calcium 10 Mg Tablet 10 Mg PO HS Duoneb 0.5-3(2.5) Mg/3 Ml (Albuterol/Ipratropium) 3 Ml Ampul.neb 3 Ml IH TID PRN Flonase (Fluticasone Propionate) 16 Gm [place].susp 2 [place] NS BID Vitals/I & O Vital Sign - Last 24 Hours 02/11/18 02/11/18 02/11/18 02/11/18 11:00 11:46 14:54 15:00 Temp 98.1 98.3 98.1 98.3 Pulse 83 83 85 Resp 26 24 B/P (MAP) 142/72 (95) 142/72 130/69 (89) Pulse Ox 96 95 O2 Delivery Nasal Cannula Nasal Cannula Nasal Cannula O2 Flow Rate 4.0 4.0 4.0 02/11/18 02/11/18 02/11/18 02/11/18 15:40 18:02 19:30 19:59 Temp 99.0 99.0 Pulse 62 82 Resp 26 B/P (MAP) 134/65 144/62 (89) Pulse Ox 96 97 O2 Delivery Nasal Cannula Nasal Cannula Nasal Cannula O2 Flow Rate 4.0 3.0 4.0 02/11/18 02/11/18 02/12/18 02/12/18 20:13 22:29 02:12 02:17 Temp 98.2 97.9 98.2 97.9 Pulse 81 74 Resp 24 24 B/P (MAP) 130/63 (85) 152/61 (91) Pulse Ox 95 94 94 95 O2 Delivery Nasal Cannula Nasal Cannula Nasal Cannula Nasal Cannula O2 Flow Rate 4.0 3.0 3.0 3.0 02/12/18 02/12/18 02/12/18 02/12/18 02:35 03:12 07:44 07:45 Temp 98.1 98.1 Pulse 72 Resp 16 B/P (MAP) 115/61 (79) Pulse Ox 96 96 93 O2 Delivery Nasal Cannula Nasal Cannula Room Air Nasal Cannula O2 Flow Rate 4.0 4.0 3.0 4.0 02/12/18 02/12/18 08:21 08:35 Pulse 72 B/P (MAP) 115/61 Pulse Ox 97 O2 Delivery Nasal Cannula O2 Flow Rate 4.0 Intake and Output 02/11/18 02/11/18 02/12/18 15:00 23:00 07:00 Output Total 275 ml 300 ml 0 ml Balance -275 ml -300 ml 0 ml JOSEP MOSQUERA MD Feb 12, 2018 10:29
[2018-02-12 11:03] VITALS: BP 115/55
--- NOTE | 2018-02-12 11:32 | PDOC ---
PULMONARY PROGRESS NOTES Subjective improved confusion Vitals Vital Signs Date Time Temp Pulse Resp B/P (MAP) Pulse Ox O2 Delivery O2 Flow Rate FiO2 02/12/18 11:03 98.1 71 16 115/55 (75) 94 Room Air 4.0 98.1 General: Alert, No acute distress Lungs: Clear Cardiovascular: S1, S2 Abdomen: Soft, Non-tender, Other (DISTENDED) Extremities: No Edema Skin: Warm Labs Laboratory Tests Test 02/11/18 08:42 02/12/18 07:15 Sodium Level 150 mmol/L (136-145) 147 mmol/L (136-145) Potassium Level 4.0 mmol/L (3.5-5.1) 3.7 mmol/L (3.5-5.1) Chloride Level 117 mmol/L (98-107) 114 mmol/L (98-107) Carbon Dioxide Level 28 mmol/L (21-32) 27 mmol/L (21-32) Anion Gap 5 (6-14) 6 (6-14) Blood Urea Nitrogen 56 mg/dL (8-26) 51 mg/dL (8-26) Creatinine 1.4 mg/dL (0.7-1.3) 1.4 mg/dL (0.7-1.3) Estimated GFR (Cockcroft-Gault) 49.3 49.3 Glucose Level 128 mg/dL (70-99) 117 mg/dL (70-99) Calcium Level 10.5 mg/dL (8.5-10.1) 10.2 mg/dL (8.5-10.1) Phosphorus Level 2.5 mg/dL (2.6-4.7) 3.0 mg/dL (2.6-4.7) Magnesium Level 1.8 mg/dL (1.8-2.4) 1.6 mg/dL (1.8-2.4) Albumin 2.1 g/dL (3.4-5.0) 1.9 g/dL (3.4-5.0) Laboratory Tests Test 02/12/18 07:15 Sodium Level 147 mmol/L (136-145) Potassium Level 3.7 mmol/L (3.5-5.1) Chloride Level 114 mmol/L (98-107) Carbon Dioxide Level 27 mmol/L (21-32) Anion Gap 6 (6-14) Blood Urea Nitrogen 51 mg/dL (8-26) Creatinine 1.4 mg/dL (0.7-1.3) Estimated GFR (Cockcroft-Gault) 49.3 Glucose Level 117 mg/dL (70-99) Calcium Level 10.2 mg/dL (8.5-10.1) Phosphorus Level 3.0 mg/dL (2.6-4.7) Magnesium Level 1.6 mg/dL (1.8-2.4) Albumin 1.9 g/dL (3.4-5.0) Medications Active Scripts Medications Dose Route/Sig Max Daily Dose Days Date Category Ferrous Sulfate 325 Mg Tablet 1 Tab PO DAILY 01/28/18 Reported Super B Complex-Vitamin C (B Complex With Vitamin C) 1 Each Tablet 1 Each PO 12/04/17 Reported Warfarin Sodium 5 Mg Tablet 7.5 Mg PO QTUTHSA 06/10/17 Reported Amiodarone Hcl 200 Mg Tablet 100 Mg PO DAILY 06/10/17 Reported Furosemide 20 Mg Tablet 10 Mg PO QMWF 06/10/17 Reported Metoprolol Succinate ( Xl ) (Metoprolol Succinate) 25 Mg Tab.er.24h 1 Tab PO QPM 11/13/16 Reported Calcitriol 0.25 Mcg Capsule 0.25 Mcg PO QM-W-F 05/24/16 Reported Warfarin Sodium 5 Mg Tablet 5 Mg PO QMWF 05/24/16 Reported Loratadine 10 Mg Tablet 10 Mg PO QHS 10/16/14 Reported Tamsulosin Hcl 0.4 Mg Cap.er.24h 0.4 Mg PO QHS 10/16/14 Reported Atorvastatin Calcium 10 Mg Tablet 10 Mg PO HS 10/16/14 Reported Duoneb 0.5-3(2.5) Mg/3 Ml (Albuterol/Ipratropium) 3 Ml Ampul.neb 3 Ml IH TID PRN 07/24/14 Reported Flonase (Fluticasone Propionate) 16 Gm [place].susp 2 [place] NS BID 01/06/14 Reported Comments CXR REVIEWED 02/09 ? Right basal atelectasis Impression . 1. Acute/Chronic resp failure, expected status post laparoscopic cholecystectomy. 02/03 2. Chronic obstructive pulmonary disease of the chronic bronchitic type. 3. Chronic atrial fibrillation. 4. Obstructive sleep apnea. 5. Common Bile duct stone S/P ERCP 02/05 6. JAYDON/CKD 7. 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 Postoperative delirium. resolved 02/05 ERCP with sphincterotomy/stone extraction Meds MAC/GOETT Pre-op dx jaundice/abnl IOC/choledocholithiasis Post-op dx choledocholithiasis s/p sphincterotomy/stone extraction large khalida-ampullary diverticulum Plan serial labs monitor for complications possibly advance diet in am if no adverse events Plan . CONTINUE NASAL CANULA FOLLOW NEUROLOGY REC REPEAT ABG ADEQUATE 02/10 FOLLOW SPUTUM CULTURE RESULT P/ PREL GRAM POSITIVE COCCI/ GM NEG RODS. ADDED DOXY TO CIPRO OFF BIPAP CONTINUE POST OP CARE AMBULATE ALIYAH CALLE MD Feb 12, 2018 11:32
[2018-02-12] MEDS ORDERED: BARIUM SULFATE 40% (APPLE) 148 GM PWD. PO ONE (13:30)
--- NOTE | 2018-02-12 15:10 | RAD ---
Video dysphasia study, 02/12/2018: History: Dysphagia, possible aspiration The swallowing mechanism was examined fluoroscopically in the lateral projection while the patient ingested a variety of food materials mixed with barium. 3.8 minutes of fluoroscopy time was utilized. One video fluoroscopic loop was recorded by a member of the speech Department. When ingesting the thin liquids there was deep laryngeal penetration down to the level of the vocal cords. When the thicker materials were utilized the laryngeal penetration diminished. The majority of the barium bolus passed normally through the cervical esophagus. When ingesting the thicker materials there was delayed pharyngeal peristalsis without aspiration. With mixed consistency of thickened liquid following solids, there was one episode of deep laryngeal penetration. This appear to be related to a clump of solid material in the vallecula. IMPRESSION: Deep laryngeal penetration of the thin liquids which abated when thickened liquids were utilized.
[2018-02-12 15:28] VITALS: BP 132/58
[2018-02-12] MEDS: AMOXICILLIN/K CLAV 875/125MG TABLET. PO SCH (17:48)
[2018-02-12] MEDS: METOPROLOL SUCC 24HR ER 25 MG TAB.ER.24H. PO SCH (17:48)
[2018-02-12] MEDS ORDERED: POLYETHYLENE GLYCOL 3350 17 GM PACKET. PO PRN (18:00)
[2018-02-12] MEDS ORDERED: POLYETHYLENE GLYCOL 3350 17 GM PACKET. PO SCH (18:00)
[2018-02-12 19:00] VITALS: BP 123/61
[2018-02-12] MEDS: ATORVASTATIN CALCIUM 10 MG TABLET. PO SCH (20:18)
[2018-02-12] MEDS ORDERED: CIPROFLOXACIN HCL 250 MG TABLET. PO SCH (21:00)
[2018-02-12 23:00] VITALS: BP 163/60
[2018-02-13] MEDS ORDERED: IPRATRPIUM/ALBUTEROL 0.5/2.5MG 3 ML NEBU. NEB PRN (01:15)
[2018-02-13] MEDS: ALBUTEROL SULFATE 2.5 MG/3 ML NEBU. NEB PRN (01:47)
[2018-02-13 03:00] VITALS: BP 125/58
[2018-02-13] MEDS: IPRATRPIUM/ALBUTEROL 0.5/2.5MG 3 ML NEBU. NEB SCH ×6 (04:00→23:25)
[2018-02-13 06:10] LABS: ALBUMIN 1.9 g/dL (3.4-5.0); CALCIUM 10.3 mg/dL (8.5-10.1); CREATININE 1.7 mg/dL (0.7-1.3); GFR 39.4; PHOSPHORUS 2.9 mg/dL (2.6-4.7); POTASSIUM 4.1 mmol/L (3.5-5.1)
[2018-02-13 07:00] VITALS: BP 152/92
--- NOTE | 2018-02-13 08:29 | PDOC ---
PULMONARY PROGRESS NOTES Subjective on home 02, w activity and qhs, has occ cough, no pain Vitals Vital Signs Date Time Temp Pulse Resp B/P (MAP) Pulse Ox O2 Delivery O2 Flow Rate FiO2 02/13/18 07:27 97 Nasal Cannula 4.0 02/13/18 07:00 96.1 74 18 152/92 (112) 96.1 ROS: No Nausea General: Alert, No acute distress HEENT: Other (nc at perrl nose throat clear) Lungs: Clear Cardiovascular: Other (irreg irreg) Abdomen: Soft, Non-tender, Other (DISTENDED) Neuro Exam: Alert Extremities: No Edema Skin: Warm Labs Laboratory Tests Test 02/11/18 08:42 02/12/18 07:15 02/13/18 05:25 Sodium Level 150 mmol/L (136-145) 147 mmol/L (136-145) 146 mmol/L (136-145) Potassium Level 4.0 mmol/L (3.5-5.1) 3.7 mmol/L (3.5-5.1) 4.1 mmol/L (3.5-5.1) Chloride Level 117 mmol/L (98-107) 114 mmol/L (98-107) 113 mmol/L (98-107) Carbon Dioxide Level 28 mmol/L (21-32) 27 mmol/L (21-32) 28 mmol/L (21-32) Anion Gap 5 (6-14) 6 (6-14) 5 (6-14) Blood Urea Nitrogen 56 mg/dL (8-26) 51 mg/dL (8-26) 54 mg/dL (8-26) Creatinine 1.4 mg/dL (0.7-1.3) 1.4 mg/dL (0.7-1.3) 1.7 mg/dL (0.7-1.3) Estimated GFR (Cockcroft-Gault) 49.3 49.3 39.4 Glucose Level 128 mg/dL (70-99) 117 mg/dL (70-99) 113 mg/dL (70-99) Calcium Level 10.5 mg/dL (8.5-10.1) 10.2 mg/dL (8.5-10.1) 10.3 mg/dL (8.5-10.1) Phosphorus Level 2.5 mg/dL (2.6-4.7) 3.0 mg/dL (2.6-4.7) 2.9 mg/dL (2.6-4.7) Magnesium Level 1.8 mg/dL (1.8-2.4) 1.6 mg/dL (1.8-2.4) Albumin 2.1 g/dL (3.4-5.0) 1.9 g/dL (3.4-5.0) 1.9 g/dL (3.4-5.0) Laboratory Tests Test 02/13/18 05:25 Sodium Level 146 mmol/L (136-145) Potassium Level 4.1 mmol/L (3.5-5.1) Chloride Level 113 mmol/L (98-107) Carbon Dioxide Level 28 mmol/L (21-32) Anion Gap 5 (6-14) Blood Urea Nitrogen 54 mg/dL (8-26) Creatinine 1.7 mg/dL (0.7-1.3) Estimated GFR (Cockcroft-Gault) 39.4 Glucose Level 113 mg/dL (70-99) Calcium Level 10.3 mg/dL (8.5-10.1) Phosphorus Level 2.9 mg/dL (2.6-4.7) Albumin 1.9 g/dL (3.4-5.0) Medications Active Scripts Medications Dose Route/Sig Max Daily Dose Days Date Category Ferrous Sulfate 325 Mg Tablet 1 Tab PO DAILY 01/28/18 Reported Super B Complex-Vitamin C (B Complex With Vitamin C) 1 Each Tablet 1 Each PO 12/04/17 Reported Warfarin Sodium 5 Mg Tablet 7.5 Mg PO QTUTHSA 06/10/17 Reported Amiodarone Hcl 200 Mg Tablet 100 Mg PO DAILY 06/10/17 Reported Furosemide 20 Mg Tablet 10 Mg PO QMWF 06/10/17 Reported Metoprolol Succinate ( Xl ) (Metoprolol Succinate) 25 Mg Tab.er.24h 1 Tab PO QPM 11/13/16 Reported Calcitriol 0.25 Mcg Capsule 0.25 Mcg PO QM-W-F 05/24/16 Reported Warfarin Sodium 5 Mg Tablet 5 Mg PO QMWF 05/24/16 Reported Loratadine 10 Mg Tablet 10 Mg PO QHS 10/16/14 Reported Tamsulosin Hcl 0.4 Mg Cap.er.24h 0.4 Mg PO QHS 10/16/14 Reported Atorvastatin Calcium 10 Mg Tablet 10 Mg PO HS 10/16/14 Reported Duoneb 0.5-3(2.5) Mg/3 Ml (Albuterol/Ipratropium) 3 Ml Ampul.neb 3 Ml IH TID PRN 07/24/14 Reported Flonase (Fluticasone Propionate) 16 Gm [place].susp 2 [place] NS BID 01/06/14 Reported Comments CXR REVIEWED 02/09 ? Right basal atelectasis Impression . 1. Acute/Chronic resp failure, expected status post laparoscopic cholecystectomy. 02/03 2. Chronic obstructive pulmonary disease of the chronic bronchitic type. 3. Chronic atrial fibrillation. 4. Obstructive sleep apnea. 5. Common Bile duct stone S/P ERCP 02/05 6. JAYDON/CKD 7. 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 Postoperative delirium. resolved 02/05 ERCP with sphincterotomy/stone extraction Meds MAC/JEMALETT Pre-op dx jaundice/abnl IOC/choledocholithiasis Post-op dx choledocholithiasis s/p sphincterotomy/stone extraction large khalida-ampullary diverticulum Plan serial labs monitor for complications possibly advance diet in am if no adverse events Plan . CONTINUE 02 titration FOLLOW NEUROLOGY REC bronchodilator cont augmentin OFF BIPAP CONTINUE POST OP CARE AMBULATE 6 min walk at discharge discussed w pt and his USHA BECKER MD Feb 13, 2018 08:29
[2018-02-13] MEDS: DOCUSATE SODIUM 100 MG CAPSULE. PO SCH ×2 (09:55→21:21)
[2018-02-13] MEDS: AMOXICILLIN/K CLAV 875/125MG TABLET. PO SCH ×2 (09:55→21:21)
[2018-02-13] MEDS: LACTOBACILLUS RHAMNOSUS GG 1 CAPSULE. PO SCH ×2 (09:55→21:21)
[2018-02-13] MEDS: AMIODARONE HCL 200 MG TABLET. PO SCH (09:56)
[2018-02-13 11:00] VITALS: BP 134/86
--- NOTE | 2018-02-13 11:25 | PDOC ---
PROGRESS NOTES Subjective Subjective pt getting a bath, will try to return later Objective Objective Vital Signs Date Time Temp Pulse Resp B/P (MAP) Pulse Ox O2 Delivery O2 Flow Rate FiO2 02/13/18 11:20 Nasal Cannula 4.0 02/13/18 09:56 74 152/92 02/13/18 07:27 97 02/13/18 07:00 96.1 18 96.1 Intake and Output 02/13/18 07:00 Intake Total 640 ml Output Total 460 ml Balance 180 ml Intake Oral 640 ml Output Urine Total 460 ml Plan Plan of Care pt getting a bath, no new surgical recs Comment Review of Relevant I have reviewed the following items aron (where applicable) has been applied. Labs Laboratory Tests Test 02/12/18 07:15 02/13/18 05:25 Sodium Level 147 mmol/L (136-145) 146 mmol/L (136-145) Potassium Level 3.7 mmol/L (3.5-5.1) 4.1 mmol/L (3.5-5.1) Chloride Level 114 mmol/L (98-107) 113 mmol/L (98-107) Carbon Dioxide Level 27 mmol/L (21-32) 28 mmol/L (21-32) Anion Gap 6 (6-14) 5 (6-14) Blood Urea Nitrogen 51 mg/dL (8-26) 54 mg/dL (8-26) Creatinine 1.4 mg/dL (0.7-1.3) 1.7 mg/dL (0.7-1.3) Estimated GFR (Cockcroft-Gault) 49.3 39.4 Glucose Level 117 mg/dL (70-99) 113 mg/dL (70-99) Calcium Level 10.2 mg/dL (8.5-10.1) 10.3 mg/dL (8.5-10.1) Phosphorus Level 3.0 mg/dL (2.6-4.7) 2.9 mg/dL (2.6-4.7) Magnesium Level 1.6 mg/dL (1.8-2.4) Albumin 1.9 g/dL (3.4-5.0) 1.9 g/dL (3.4-5.0) Laboratory Tests Test 02/13/18 05:25 Sodium Level 146 mmol/L (136-145) Potassium Level 4.1 mmol/L (3.5-5.1) Chloride Level 113 mmol/L (98-107) Carbon Dioxide Level 28 mmol/L (21-32) Anion Gap 5 (6-14) Blood Urea Nitrogen 54 mg/dL (8-26) Creatinine 1.7 mg/dL (0.7-1.3) Estimated GFR (Cockcroft-Gault) 39.4 Glucose Level 113 mg/dL (70-99) Calcium Level 10.3 mg/dL (8.5-10.1) Phosphorus Level 2.9 mg/dL (2.6-4.7) Albumin 1.9 g/dL (3.4-5.0) Microbiology 02/04/18 Blood Culture - Final, Complete NO GROWTH AFTER 5 DAYS 02/08/18 - Final, Complete 02/08/18 - Final, Complete 02/08/18 - Final, Complete 02/08/18 - Final, Complete 02/08/18 Gram Stain Evaluation - Final, Complete 02/08/18 Sputum Culture - Final, Complete 02/08/18 Sputum Result 1 - Final, Complete 02/08/18 Sputum Result 2 - Final, Complete 02/08/18 Antimicrobic Susceptibility - Final, Complete Medications Current Medications Ondansetron HCl (Zofran) 4 mg PRN Q6HRS PRN IV NAUSEA/VOMITING Last administered on 02/04/18at 04:08; Start 02/03/18 at 07:00; Stop 02/04/18 at 06:59; Status DC Fentanyl Citrate (Fentanyl 2ml Vial) 25 mcg PRN Q5MIN PRN IV MILD PAIN Last administered on 02/03/18at 12:13; Start 02/03/18 at 07:00; Stop 02/04/18 at 06:59; Status DC Fentanyl Citrate (Fentanyl 2ml Vial) 50 mcg PRN Q5MIN PRN IV MODERATE TO SEVERE PAIN; Start 02/03/18 at 07:00; Stop 02/04/18 at 06:59; Status DC Morphine Sulfate (Morphine Sulfate) 1 mg PRN Q10MIN PRN IV SEVERE PAIN Last administered on 02/03/18at 11:42; Start 02/03/18 at 07:00; Stop 02/04/18 at 06:59; Status DC Ringer's Solution 1,000 ml @ 30 mls/hr Q24H IV Last administered on 02/03/18at 09:13; Start 02/03/18 at 07:00; Stop 02/03/18 at 18:59; Status DC Lidocaine HCl (Xylocaine-Mpf 1% Vial) 2 ml PRN 1X PRN ID PRIOR TO IV START; Start 02/03/18 at 07:00; Stop 02/04/18 at 06:59; Status DC Prochlorperazine Edisylate (Compazine) 5 mg PACU PRN PRN IV NAUSEA, MRX1; Start 02/03/18 at 07:00; Stop 02/04/18 at 06:59; Status DC Cefazolin Sodium/ Dextrose 50 ml @ 100 mls/hr 1X PREOP PRN IV PRIOR TO SURGERY Last administered on 02/03/18at 09:35; Start 02/03/18 at 08:00; Stop at 14:44; Status DC Fentanyl Citrate (Fentanyl 2ml Vial) 100 mcg STK-MED ONCE .ROUTE ; Start at 08:09; Stop 02/03/18 at 08:10; Status DC Rocuronium [place] (Zemuron) 50 mg STK-MED ONCE .ROUTE ; Start 02/03/18 at 08:09 ; Stop 02/03/18 at 08:10; Status DC Desflurane (Suprane) 60 ml STK-MED ONCE IH ; Start 02/03/18 at 08:09; Stop at 08:10; Status DC Dexamethasone Sodium Phosphate (Decadron) 20 mg STK-MED ONCE .ROUTE ; Start 02/03 at 08:09; Stop 02/03/18 at 08:10; Status DC Propofol 20 ml @ As Directed STK-MED ONCE IV ; Start 02/03/18 at 08:09; Stop 02/03 at 08:10; Status DC Lidocaine HCl (Lidocaine Pf 2% Vial) 5 ml STK-MED ONCE .ROUTE ; Start 02/03/18 at 08:09; Stop 02/03/18 at 08:10; Status DC Ondansetron HCl (Zofran) 4 mg STK-MED ONCE .ROUTE ; Start 02/03/18 at 08:09; Stop 02/03/18 at 08:10; Status DC Ketorolac Tromethamine (Toradol For Or Only) 30 mg STK-MED ONCE INJ ; Start 02/03 at 08:09; Stop 02/03/18 at 08:10; Status DC Ephedrine Sulfate (ePHEDrine PF IN SALINE SYRINGE) 50 mg STK-MED ONCE IV ; Start 02/03/18 at 08:15; Stop 02/03/18 at 08:16; Status DC Bupivacaine HCl/ Epinephrine [place]art (Marcaine-Epi 0.5%-[id number]) 50 ml STK-MED ONCE .ROUTE Last administered on 02/03/18at 09:49; Start 02/03/18 at 07:56; Stop 02/03/18 at 08:57; Status DC Iohexol (Omnipaque 300 Mg/ml) 100 ml STK-MED ONCE .ROUTE Last administered on at 09:49; Start 02/03/18 at 07:56; Stop 02/03/18 at 08:58; Status DC Phenylephrine HCl (PHENYLEPHRINE in 0.9% NACL PF) 1 mg STK-MED ONCE IV ; Start 02/03/18 at 09:24; Stop 02/03/18 at 09:25; Status DC Glycopyrrolate (Robinul) 1 mg STK-MED ONCE .ROUTE ; Start 02/03/18 at 09:55; Stop 02/03/18 at 09:56; Status DC Neostigmine Methylsulfate (Neostigmine Methylsulfate) 5 mg STK-MED ONCE .ROUTE ; Start 02/03/18 at 09:55; Stop 02/03/18 at 09:56; Status DC Albuterol Sulfate (Ventolin Neb Soln) 2.5 mg 1X PACU PRN NEB SHORTNESS OF BREATH Last administered on 02/03/18at 10:53; Start 02/03/18 at 11:00; Stop at 17:39; Status DC Diphenhydramine HCl (Benadryl) 25 mg PRN Q6HRS PRN PO ITCHING; Start 02/03/18 at 11:00 Diphenhydramine HCl (Benadryl) 25 mg PRN Q6HRS PRN IV ITCHING Last administered on 02/09/18at 22:30; Start 02/03/18 at 11:00 Enoxaparin Sodium (Lovenox 40mg Syringe) 40 mg Q24H SQ ; Start 02/03/18 at 11:00 ; Status Cancel Sodium Chloride (Normal Saline Flush) 3 ml QSHIFT PRN IV AFTER MEDS AND BLOOD DRAWS; Start 02/03/18 at 11:00 Potassium Chloride/Sodium Chloride 1,000 ml @ 75 mls/hr [id number] IV Last administered on 02/03/18at 23:55; Start 02/03/18 at 10:46; Stop 02/04/18 at 11:37; Status DC Dextrose (Dextrose 50%-Water Syringe) 12.5 gm PRN Q15MIN PRN IV SEE COMMENTS; Start 02/03/18 at 11:00 Oxycodone/ Acetaminophen (Percocet 5/325) 1 tab PRN Q4HRS PRN PO MILD PAIN, 1ST CHOICE Last administered on 02/12/18at 02:12; Start 02/03/18 at 11:00; Stop at 08:42; Status DC Oxycodone/ Acetaminophen (Percocet 5/325) 2 tab PRN Q4HRS PRN PO MODERATE PAIN , SEVERE PAIN; Start 02/03/18 at 11:00; Stop 02/12/18 at 08:42; Status DC Morphine Sulfate (Morphine Sulfate) 5 mg PRN Q3HRS PRN IV MODERATE TO SEVERE PAIN Last administered on 02/10/18at 17:55; Start 02/03/18 at 11:15 Docusate Sodium (Colace) 100 mg BID PO Last administered on 02/13/18at 09:55; Start 02/03/18 at 11:00 Ondansetron HCl (Zofran) 4 mg PRN Q6HRS PRN IV NAUESA, 1ST CHOICE Last administered on 02/12/18at 02:11; Start 02/03/18 at 11:00 Enoxaparin Sodium (Lovenox 40mg Syringe) 40 mg Q24H SQ ; Start 02/04/18 at 09:00 ; Stop 02/04/18 at 09:00; Status DC Hydralazine HCl (Apresoline Inj) 10 mg 1X PACU PRN IVP ELEVATED BP, SEE COMMENTS; Start 02/03/18 at 12:15; Stop 02/03/18 at 20:00; Status DC Oxycodone/ Acetaminophen (Percocet 5/325) 1 tab 1X PACU PRN PO PAIN Last administered on 02/03/18at 12:20; Start 02/03/18 at 12:15; Stop 02/03/18 at 20:00; Status DC Albuterol Sulfate (Ventolin Neb Soln) 2.5 mg PRN Q2HR PRN NEB [id number] Last administered on 02/13/18at 01:47; Start 02/03/18 at 15:00 Albuterol/ Ipratropium (Duoneb) 3 ml RTQID NEB Last administered on 02/12/18at 20:00; Start 02/03/18 at 16:00; Stop 02/13/18 at 01:32; Status DC Ondansetron HCl (Zofran) 4 mg PRN Q6HRS PRN IV NAUSEA/VOMITING; Start 02/04/18 at 07:00; Stop 02/05/18 at 06:59; Status DC Fentanyl Citrate (Fentanyl 2ml Vial) 25 mcg PRN Q5MIN PRN IV MILD PAIN; Start 02/04/18 at 07:00; Stop 02/05/18 at 06:59; Status DC Fentanyl Citrate (Fentanyl 2ml Vial) 50 mcg PRN Q5MIN PRN IV MODERATE TO SEVERE PAIN; Start 02/04/18 at 07:00; Stop 02/05/18 at 06:59; Status DC Morphine Sulfate (Morphine Sulfate) 1 mg PRN Q10MIN PRN IV SEVERE PAIN; Start 02/04/18 at 07:00; Stop 02/05/18 at 06:59; Status DC Ringer's Solution 1,000 ml @ 30 mls/hr Q24H IV ; Start 02/04/18 at 07:00; Stop 02/04/18 at 18:59; Status DC Lidocaine HCl (Xylocaine-Mpf 1% Vial) 2 ml PRN 1X PRN ID IV START; Start at 07:00; Stop 02/05/18 at 06:59; Status DC Prochlorperazine Edisylate (Compazine) 5 mg PACU PRN PRN IV NAUSEA, MRX1; Start 02/04/18 at 07:00; Stop 02/05/18 at 06:59; Status DC Furosemide (Lasix) 40 mg 1X ONCE IVP Last administered on 02/04/18at 12:47; Start 02/04/18 at 11:45; Stop 02/04/18 at 11:46; Status DC Sodium Chloride 1,000 ml @ 100 mls/hr Q10H IV Last administered on 02/05/18at 21 :05; Start 02/04/18 at 12:00; Stop 02/06/18 at 13:12; Status DC Hydralazine HCl (Apresoline Inj) 10 mg PRN Q4HRS PRN IVP ELEVATED BP, SEE COMMENTS Last administered on 02/10/18at 03:12; Start 02/04/18 at 12:15 Iohexol (Omnipaque 300 Mg/ml) 100 ml STK-MED ONCE .ROUTE ; Start 02/04/18 at 12: 11; Stop 02/04/18 at 12:12; Status DC Cefazolin Sodium/ Dextrose (Ancef 2gm Premix) 2 gm STK-MED ONCE IV ; Start at 07:00; Stop 02/04/18 at 12:31; Status DC Propofol 0 ml @ As Directed STK-MED ONCE IV ; Start 02/04/18 at 13:50; Stop at 13:51; Status DC Lidocaine HCl (Lidocaine Pf 2% Vial) 5 ml STK-MED ONCE .ROUTE ; Start 02/04/18 at 13:50; Stop 02/04/18 at 13:51; Status DC Famotidine (Pepcid Vial) 20 mg STK-MED ONCE .ROUTE ; Start 02/04/18 at 13:50; Stop 02/04/18 at 13:51; Status DC Dexamethasone Sodium Phosphate (Decadron) 20 mg STK-MED ONCE .ROUTE ; Start 02/04 at 13:50; Stop 02/04/18 at 13:52; Status DC Ondansetron HCl (Zofran) 4 mg STK-MED ONCE .ROUTE ; Start 02/04/18 at 13:50; Stop 02/04/18 at 13:52; Status DC Lorazepam (Ativan) 0.5 mg PRN Q8HRS PRN PO ANXIETY / AGITATION; Start 02/04/18 at 15:15 Furosemide (Lasix) 40 mg 1X ONCE IVP Last administered on 02/04/18at 17:00; Start 02/04/18 at 16:45; Stop 02/04/18 at 16:46; Status DC Ciprofloxacin/ Dextrose 200 ml @ 200 mls/hr Q12HR IV Last administered on at 08:10; Start 02/04/18 at 17:30; Stop 02/06/18 at 14:49; Status DC Metronidazole 100 ml @ 100 mls/hr Q12HR IV Last administered on 02/09/18at 20:52 ; Start 02/04/18 at 17:30; Stop 02/10/18 at 13:43; Status DC Metoclopramide HCl (Reglan Vial) 5 mg PRN Q6HRS PRN IV NAUSEA/VOMITING 2nd CHOICE Last administered on 02/05/18at 13:05; Start 02/04/18 at 17:30; Stop at 15:13; Status DC Lorazepam (Ativan) 0.5 mg PRN Q6HRS PRN IV ANXIETY / AGITATION 1ST CHOICE Last administered on 02/13/18at 09:56; Start 02/04/18 at 20:45 Acetaminophen (Tylenol) 500 mg PRN Q4HRS PRN PO FEVER; Start 02/04/18 at 22:15 Furosemide (Lasix) 40 mg 1X ONCE IVP Last administered on 02/05/18at 01:15; Start 02/05/18 at 01:30; Stop 02/05/18 at 01:31; Status DC Ringer's Solution 1,000 ml @ 75 mls/hr [id number] IV Last administered on at 09:52; Start 02/05/18 at 10:00; Stop 02/06/18 at 13:12; Status DC Iohexol (Omnipaque 300 Mg/ml) 100 ml STK-MED ONCE .ROUTE ; Start 02/05/18 at 10: 10; Stop 02/05/18 at 10:11; Status DC Fentanyl Citrate (Fentanyl 2ml Vial) 100 mcg STK-MED ONCE .ROUTE ; Start at 10:33; Stop 02/05/18 at 10:34; Status DC Ondansetron HCl (Zofran) 4 mg STK-MED ONCE .ROUTE ; Start 02/05/18 at 11:01; Stop 02/05/18 at 11:03; Status DC Iohexol (Omnipaque 300 Mg/ml) 100 ml STK-MED ONCE IV Last administered on at 11:27; Start 02/05/18 at 11:27; Stop 02/05/18 at 11:29; Status DC Haloperidol Lactate (Haldol Inj) 5 mg PRN Q6HRS PRN IVP AGITATION 2ND CHOICE Last administered on 02/10/18at 09:00; Start 02/05/18 at 12:30 Ciprofloxacin/ Dextrose 200 ml @ 200 mls/hr Q24H IV Last administered on at 08:25; Start 02/07/18 at 08:00; Stop 02/12/18 at 09:45; Status DC Magnesium Sulfate 50 ml @ 25 mls/hr PRN DAILY PRN IV for Mag < 1.7 on am labs; Start 02/07/18 at 09:00 Darbepoetin Rob (Aranesp) 60 mcg [id number] SQ Last administered on 02/07/18at 21: 30; Start 02/07/18 at 21:00 Lactobacillus Rhamnosus (Culturelle) 1 cap BID PO Last administered on at 09:55; Start 02/08/18 at 21:00 Sodium Chloride 1,000 ml @ 125 mls/hr Q8H IV Last administered on 02/09/18at 04: 39; Start 02/08/18 at 10:00; Stop 02/09/18 at 10:23; Status DC Furosemide (Lasix) 40 mg 1X ONCE IVP Last administered on 02/08/18at 12:07; Start 02/08/18 at 11:30; Stop 02/08/18 at 11:31; Status DC Amino Acids/ Glycerin/ Electrolytes 1,000 ml @ 75 mls/hr [id number] IV Last administered on 02/10/18at 05:43; Start 02/08/18 at 12:00; Stop 02/11/18 at 12:42; Status DC Sodium Bicarbonate (Sodium Bicarb Adult 8.4% Syr) 50 meq 1X ONCE IV Last administered on 02/08/18at 12:08; Start 02/08/18 at 12:30; Stop 02/08/18 at 12:31; Status DC Albuterol/ Ipratropium (Duoneb) 3 ml STK-MED ONCE .ROUTE ; Start 02/08/18 at 19: 39; Stop 02/08/18 at 19:40; Status DC Neostigmine Methylsulfate (Neostigmine Methylsulfate) 5 mg STK-MED ONCE .ROUTE ; Start 02/06/18 at 12:00; Stop 02/09/18 at 06:52; Status DC Lidocaine HCl (Lidocaine HCl 2% Abboject) 100 mg STK-MED ONCE .ROUTE ; Start 02/06/18 at 12:00; Stop 02/09/18 at 06:52; Status DC Phenylephrine HCl (PHENYLEPHRINE in 0.9% NACL PF) 2 mg STK-MED ONCE IV ; Start 02/06/18 at 12:00; Stop 02/09/18 at 06:52; Status DC Propofol (Diprivan) 200 mg STK-MED ONCE IV ; Start 02/06/18 at 12:00; Stop at 06:52; Status DC Glycopyrrolate (Robinul) 1 mg STK-MED ONCE .ROUTE ; Start 02/06/18 at 12:00; Stop 02/09/18 at 06:52; Status DC Dexamethasone Sodium Phosphate (Decadron) 20 mg STK-MED ONCE .ROUTE ; Start 02/06 at 12:00; Stop 02/09/18 at 06:52; Status DC Metoprolol Tartrate (Lopressor Vial) 5 mg PRN Q6HRS PRN IVP TACHYCARDIA; Start 02/09/18 at 12:45 Quetiapine Fumarate (SEROquel) 50 mg QHS PO Last administered on 02/09/18at 20:53 ; Start 02/09/18 at 21:00; Stop 02/10/18 at 14:54; Status DC Metronidazole 100 ml @ 100 mls/hr Q12H IV Last administered on 02/11/18at 02:01 ; Start 02/10/18 at 14:00; Stop 02/11/18 at 12:42; Status DC Dextrose/Sodium Chloride 1,000 ml @ 75 mls/hr [id number] IV Last administered on 02/11/18at 03:35; Start 02/10/18 at 14:15; Stop 02/11/18 at 12:42; Status DC Quetiapine Fumarate (SEROquel) 50 mg BID PO Last administered on 8/9/18at 20:28 ; Start 02/10/18 at 15:00; Stop 02/12/18 at 08:42; Status DC Dextrose 1,000 ml @ 100 mls/hr Q10H IV Last administered on 02/12/18 05:41; Start 02/11/18 at 10:45; Stop 02/12/18 at 08:42; Status DC Doxycycline Hyclate (Vibra-Tab) 100 mg BID PO Last administered on 02/12/18 08 :20; Start 02/11/18 at 11:30; Stop 02/12/18 at 16:05; Status DC Metronidazole (Flagyl) 500 mg Q12HR PO Last administered on 02/12/18 08:21; Start 02/11/18 at 14:00; Stop 02/12/18 at 16:05; Status DC Amiodarone HCl (Cordarone) 100 mg DAILY PO Last administered on 02/13/18 09:56 ; Start 02/11/18 at 14:00 Atorvastatin Calcium (Lipitor) 10 mg HS PO Last administered on 02/12/18 20:18 ; Start 02/11/18 at 21:00 Metoprolol Succinate (Toprol Xl) 25 mg QPM PO Last administered on 02/12/18 17 :48; Start 02/11/18 at 18:00 Ciprofloxacin (Cipro) 500 mg BID PO ; Start 02/12/18 at 21:00; Stop 02/12/18 at 21:00; Status DC Barium Sulfate (Varibar Thin Liquid Apple) 148 gm 1X ONCE PO Last administered on 02/12/18 13:30; Start 02/12/18 at 13:30; Stop 02/12/18 at 13:31 ; Status DC Amoxicillin/ Clavulanate Potassium (Augmentin 875/ 125mg) 1 tab BID PO Last administered on 02/13/18 09:55; Start 02/12/18 at 17:00 Polyethylene Glycol (miraLAX PACKET) 17 gm DAILY PO Last administered on 17:48; Start 02/12/18 at 18:00; Stop 02/12/18 at 18:00; Status DC Polyethylene Glycol (miraLAX PACKET) 17 gm PRN DAILY PRN PO CONSTIPATION Last administered on 02/13/18 09:56; Start 02/12/18 at 18:00 Albuterol/ Ipratropium (Duoneb) 3 ml PRN Q2HRS PRN NEB SHORTNESS OF BREATH; Start 02/13/18 at 01:15; Status UNV Albuterol/ Ipratropium (Duoneb) 3 ml Q4HRS NEB Last administered on 02/13/18at 11:19; Start 02/13/18 at 04:00 Active Scripts Active Reported Ferrous Sulfate 325 Mg Tablet 1 Tab PO DAILY Super B Complex-Vitamin C (B Complex With Vitamin C) 1 Each Tablet 1 Each PO Warfarin Sodium 5 Mg Tablet 7.5 Mg PO QTUTHSA Amiodarone Hcl 200 Mg Tablet 100 Mg PO DAILY Furosemide 20 Mg Tablet 10 Mg PO QMWF Metoprolol Succinate ( Xl ) (Metoprolol Succinate) 25 Mg Tab.er.24h 1 Tab PO QPM Calcitriol 0.25 Mcg Capsule 0.25 Mcg PO QM-W-F Warfarin Sodium 5 Mg Tablet 5 Mg PO QMWF Loratadine 10 Mg Tablet 10 Mg PO QHS Tamsulosin Hcl 0.4 Mg Cap.er.24h 0.4 Mg PO QHS Atorvastatin Calcium 10 Mg Tablet 10 Mg PO HS Duoneb 0.5-3(2.5) Mg/3 Ml (Albuterol/Ipratropium) 3 Ml Ampul.neb 3 Ml IH TID PRN Flonase (Fluticasone Propionate) 16 Gm [place].susp 2 [place] NS BID Vitals/I & O Vital Sign - Last 24 Hours 02/12/18 02/12/18 02/12/18 02/12/18 11:58 15:28 15:36 17:48 Temp 99.0 99.0 Pulse 73 73 Resp 18 B/P (MAP) 132/58 (82) 132/58 Pulse Ox 92 O2 Delivery Nasal Cannula Nasal Cannula Nasal Cannula O2 Flow Rate 4.0 4.0 4.0 02/12/18 02/12/18 02/12/18 02/12/18 19:00 20:00 20:01 23:00 Temp 99.3 98.6 99.3 98.6 Pulse 70 77 Resp 24 18 B/P (MAP) 123/61 (81) 163/60 (94) Pulse Ox 95 94 O2 Delivery Nasal Cannula Nasal Cannula Nasal Cannula Nasal Cannula O2 Flow Rate 3.0 4.0 4.0 3.0 02/13/18 02/13/18 02/13/18 02/13/18 01:47 03:00 04:25 07:00 Temp 98.5 96.1 98.5 96.1 Pulse 70 74 Resp 18 18 B/P (MAP) 125/58 (80) 152/92 (112) Pulse Ox 93 95 O2 Delivery Nasal Cannula Nasal Cannula Nasal Cannula Nasal Cannula O2 Flow Rate 4.0 3.0 4.0 3.0 02/13/18 02/13/18 02/13/18 02/13/18 07:27 08:00 09:56 11:20 Pulse 74 B/P (MAP) 152/92 Pulse Ox 97 O2 Delivery Nasal Cannula Nasal Cannula Nasal Cannula O2 Flow Rate 4.0 4.0 4.0 Intake and Output 02/12/18 02/12/18 02/13/18 15:00 23:00 07:00 Intake Total 640 ml Output Total 360 ml 100 ml Balance 280 ml -100 ml BORIS WASSERMAN MD Feb 13, 2018 11:25
--- NOTE | 2018-02-13 12:13 | PDOC ---
Renal-Progress Notes Subjective Notes Notes BETTER History of Present Illness Hx of present illness STABLE Vitals Vitals Vital Signs Date Time Temp Pulse Resp B/P (MAP) Pulse Ox O2 Delivery O2 Flow Rate FiO2 02/13/18 11:20 Nasal Cannula 4.0 02/13/18 09:56 74 152/92 02/13/18 07:27 97 02/13/18 07:00 96.1 18 96.1 Weight Weight [ ] I.O. Intake and Output Intake and Output 02/13/18 07:00 Intake Total 640 ml Output Total 460 ml Balance 180 ml Intake Oral 640 ml Output Urine Total 460 ml Labs Labs Laboratory Tests Test 02/13/18 05:25 Sodium Level 146 mmol/L (136-145) Potassium Level 4.1 mmol/L (3.5-5.1) Chloride Level 113 mmol/L (98-107) Carbon Dioxide Level 28 mmol/L (21-32) Anion Gap 5 (6-14) Blood Urea Nitrogen 54 mg/dL (8-26) Creatinine 1.7 mg/dL (0.7-1.3) Estimated GFR (Cockcroft-Gault) 39.4 Glucose Level 113 mg/dL (70-99) Calcium Level 10.3 mg/dL (8.5-10.1) Phosphorus Level 2.9 mg/dL (2.6-4.7) Albumin 1.9 g/dL (3.4-5.0) Micro Micro Microbiology 02/04/18 Blood Culture - Final, Complete NO GROWTH AFTER 5 DAYS 02/08/18 - Final, Complete 02/08/18 - Final, Complete 02/08/18 - Final, Complete 02/08/18 - Final, Complete 02/08/18 Gram Stain Evaluation - Final, Complete 02/08/18 Sputum Culture - Final, Complete 02/08/18 Sputum Result 1 - Final, Complete 02/08/18 Sputum Result 2 - Final, Complete 02/08/18 Antimicrobic Susceptibility - Final, Complete Review of Systems Constitutional: yes: alert, oriented Ears/Nose/Throat: Yes: no symptom reported Eyes: Yes: no symptom reported Pulmonary: Yes no symptom reported Cardiovascular: Yes no symptom reported Gastrointestional: Yes: no symptom reported Genitourinary: Yes: no symptom reported Musculoskeletal: Yes: no symptom reported Skin: Yes no symptom reported Psychiatric/Neurological: Yes: no symptom reported Endocrine: Yes: no symptom reported Physical Exam General Appearance: no apparent distress Respiratory: bilateral CTA Heart: S1S2 Abdomen: soft, bowel sounds present Genitourinary: bladder flat Extremities: pulses present Neurology: alert, follow commands, other (drowsy/groggy after ERCP) Musculoskeletal: Osteoarthritis Assessment Assessment IMP JAYDON-BETTER CR DOWN TO 1.9 HYPERNATREMIA-BETTER S/P LAP CHOLY AND THEN ERCP PLAN ANTIBIOTICS ENC PO LABS IN AM MICHELLE WHYTE MD Feb 13, 2018 12:13
[2018-02-13] MEDS ORDERED: LACTULOSE 20 GM/30 ML SOLUTION. PO PRN (12:30)
[2018-02-13] MEDS ORDERED: BISACODYL 10 MG SUPP.RECT. PR PRN (12:30)
[2018-02-13] MEDS ORDERED: DOCUSATE SODIUM 100 MG CAPSULE. PO SCH (13:00)
[2018-02-13] MEDS: MAGNESIUM HYDROXIDE 2,400 MG/30 ML ORAL.SUSP. PO SCH ×2 (13:35→21:21)
[2018-02-13] MEDS: SENNOSIDES/DOCUSATE 8.6/50MG TABLET. PO SCH ×2 (13:35→21:22)
[2018-02-13] MEDS: AMINO AC 3%/ELECTROLYTE/GLYCER 1,000 ML IV SCH (13:36)
--- NOTE | 2018-02-13 14:14 | PDOC ---
PROGRESS NOTES Assessment Postoperative delirium, metabolic issues including renal insufficiency and COPD , but no bedside evidence of stroke, ongoing seizure activity, or central nervous system infection. Head CT was negative Elevated ESR Labs so far negative or pending Dysphagia, he is very concerned about thickened liquids Plan I tried to encourage patient this is only a temporary problem. Repeat ESR 1-2 weeks Subjective Very worried about having to drink thickened liquids, he strongly wants to have some water and ice Objective Vital Signs Date Time Temp Pulse Resp B/P (MAP) Pulse Ox O2 Delivery O2 Flow Rate FiO2 02/13/18 11:20 Nasal Cannula 4.0 02/13/18 11:00 97.5 69 22 134/86 (102) 95 97.5 Intake and Output 02/13/18 07:00 Intake Total 640 ml Output Total 460 ml Balance 180 ml Intake Oral 640 ml Output Urine Total 460 ml PHYSICAL EXAM He knows name, follows commands, knows location, and date PERRL. EOMI. CN: no focal findings. Muscle tone: normal. Muscle strength: 4/5 DTR: 1+ Plantar reflex: flexor Gait: not examined in bed. Sensory exam: no abnormal findings. No cerebellar signs elicited. Review of Relevant I have reviewed the following items aron (where applicable) has been applied. Labs Laboratory Tests Test 02/12/18 07:15 02/13/18 05:25 Sodium Level 147 mmol/L (136-145) 146 mmol/L (136-145) Potassium Level 3.7 mmol/L (3.5-5.1) 4.1 mmol/L (3.5-5.1) Chloride Level 114 mmol/L (98-107) 113 mmol/L (98-107) Carbon Dioxide Level 27 mmol/L (21-32) 28 mmol/L (21-32) Anion Gap 6 (6-14) 5 (6-14) Blood Urea Nitrogen 51 mg/dL (8-26) 54 mg/dL (8-26) Creatinine 1.4 mg/dL (0.7-1.3) 1.7 mg/dL (0.7-1.3) Estimated GFR (Cockcroft-Gault) 49.3 39.4 Glucose Level 117 mg/dL (70-99) 113 mg/dL (70-99) Calcium Level 10.2 mg/dL (8.5-10.1) 10.3 mg/dL (8.5-10.1) Phosphorus Level 3.0 mg/dL (2.6-4.7) 2.9 mg/dL (2.6-4.7) Magnesium Level 1.6 mg/dL (1.8-2.4) Albumin 1.9 g/dL (3.4-5.0) 1.9 g/dL (3.4-5.0) Laboratory Tests Test 02/13/18 05:25 Sodium Level 146 mmol/L (136-145) Potassium Level 4.1 mmol/L (3.5-5.1) Chloride Level 113 mmol/L (98-107) Carbon Dioxide Level 28 mmol/L (21-32) Anion Gap 5 (6-14) Blood Urea Nitrogen 54 mg/dL (8-26) Creatinine 1.7 mg/dL (0.7-1.3) Estimated GFR (Cockcroft-Gault) 39.4 Glucose Level 113 mg/dL (70-99) Calcium Level 10.3 mg/dL (8.5-10.1) Phosphorus Level 2.9 mg/dL (2.6-4.7) Albumin 1.9 g/dL (3.4-5.0) Microbiology 02/04/18 Blood Culture - Final, Complete NO GROWTH AFTER 5 DAYS 02/08/18 - Final, Complete 02/08/18 - Final, Complete 02/08/18 - Final, Complete 02/08/18 - Final, Complete 02/08/18 Gram Stain Evaluation - Final, Complete 02/08/18 Sputum Culture - Final, Complete 02/08/18 Sputum Result 1 - Final, Complete 02/08/18 Sputum Result 2 - Final, Complete 02/08/18 Antimicrobic Susceptibility - Final, Complete Medications Current Medications Ondansetron HCl (Zofran) 4 mg PRN Q6HRS PRN IV NAUSEA/VOMITING Last administered on 02/04/18at 04:08; Start 02/03/18 at 07:00; Stop 02/04/18 at 06:59; Status DC Fentanyl Citrate (Fentanyl 2ml Vial) 25 mcg PRN Q5MIN PRN IV MILD PAIN Last administered on 02/03/18at 12:13; Start 02/03/18 at 07:00; Stop 02/04/18 at 06:59; Status DC Fentanyl Citrate (Fentanyl 2ml Vial) 50 mcg PRN Q5MIN PRN IV MODERATE TO SEVERE PAIN; Start 02/03/18 at 07:00; Stop 02/04/18 at 06:59; Status DC Morphine Sulfate (Morphine Sulfate) 1 mg PRN Q10MIN PRN IV SEVERE PAIN Last administered on 02/03/18at 11:42; Start 02/03/18 at 07:00; Stop 02/04/18 at 06:59; Status DC Ringer's Solution 1,000 ml @ 30 mls/hr Q24H IV Last administered on 02/03/18at 09:13; Start 02/03/18 at 07:00; Stop 02/03/18 at 18:59; Status DC Lidocaine HCl (Xylocaine-Mpf 1% Vial) 2 ml PRN 1X PRN ID PRIOR TO IV START; Start 02/03/18 at 07:00; Stop 02/04/18 at 06:59; Status DC Prochlorperazine Edisylate (Compazine) 5 mg PACU PRN PRN IV NAUSEA, MRX1; Start 02/03/18 at 07:00; Stop 02/04/18 at 06:59; Status DC Cefazolin Sodium/ Dextrose 50 ml @ 100 mls/hr 1X PREOP PRN IV PRIOR TO SURGERY Last administered on 02/03/18at 09:35; Start 02/03/18 at 08:00; Stop at 14:44; Status DC Fentanyl Citrate (Fentanyl 2ml Vial) 100 mcg STK-MED ONCE .ROUTE ; Start at 08:09; Stop 02/03/18 at 08:10; Status DC Rocuronium [place] (Zemuron) 50 mg STK-MED ONCE .ROUTE ; Start 02/03/18 at 08:09 ; Stop 02/03/18 at 08:10; Status DC Desflurane (Suprane) 60 ml STK-MED ONCE IH ; Start 02/03/18 at 08:09; Stop at 08:10; Status DC Dexamethasone Sodium Phosphate (Decadron) 20 mg STK-MED ONCE .ROUTE ; Start 02/03 at 08:09; Stop 02/03/18 at 08:10; Status DC Propofol 20 ml @ As Directed STK-MED ONCE IV ; Start 02/03/18 at 08:09; Stop 02/03 at 08:10; Status DC Lidocaine HCl (Lidocaine Pf 2% Vial) 5 ml STK-MED ONCE .ROUTE ; Start 02/03/18 at 08:09; Stop 02/03/18 at 08:10; Status DC Ondansetron HCl (Zofran) 4 mg STK-MED ONCE .ROUTE ; Start 02/03/18 at 08:09; Stop 02/03/18 at 08:10; Status DC Ketorolac Tromethamine (Toradol For Or Only) 30 mg STK-MED ONCE INJ ; Start 02/03 at 08:09; Stop 02/03/18 at 08:10; Status DC Ephedrine Sulfate (ePHEDrine PF IN SALINE SYRINGE) 50 mg STK-MED ONCE IV ; Start 02/03/18 at 08:15; Stop 02/03/18 at 08:16; Status DC Bupivacaine HCl/ Epinephrine Bitart (Marcaine-Epi 0.5%-[id number]) 50 ml STK-MED ONCE .ROUTE Last administered on 02/03/18at 09:49; Start 02/03/18 at 07:56; Stop 02/03/18 at 08:57; Status DC Iohexol (Omnipaque 300 Mg/ml) 100 ml STK-MED ONCE .ROUTE Last administered on at 09:49; Start 02/03/18 at 07:56; Stop 02/03/18 at 08:58; Status DC Phenylephrine HCl (PHENYLEPHRINE in 0.9% NACL PF) 1 mg STK-MED ONCE IV ; Start 02/03/18 at 09:24; Stop 02/03/18 at 09:25; Status DC Glycopyrrolate (Robinul) 1 mg STK-MED ONCE .ROUTE ; Start 02/03/18 at 09:55; Stop 02/03/18 at 09:56; Status DC Neostigmine Methylsulfate (Neostigmine Methylsulfate) 5 mg STK-MED ONCE .ROUTE ; Start 02/03/18 at 09:55; Stop 02/03/18 at 09:56; Status DC Albuterol Sulfate (Ventolin Neb Soln) 2.5 mg 1X PACU PRN NEB SHORTNESS OF BREATH Last administered on 02/03/18at 10:53; Start 02/03/18 at 11:00; Stop at 17:39; Status DC Diphenhydramine HCl (Benadryl) 25 mg PRN Q6HRS PRN PO ITCHING; Start 02/03/18 at 11:00 Diphenhydramine HCl (Benadryl) 25 mg PRN Q6HRS PRN IV ITCHING Last administered on 02/09/18at 22:30; Start 02/03/18 at 11:00 Enoxaparin Sodium (Lovenox 40mg Syringe) 40 mg Q24H SQ ; Start 02/03/18 at 11:00 ; Status Cancel Sodium Chloride (Normal Saline Flush) 3 ml QSHIFT PRN IV AFTER MEDS AND BLOOD DRAWS; Start 02/03/18 at 11:00 Potassium Chloride/Sodium Chloride 1,000 ml @ 75 mls/hr [id number] IV Last administered on 02/03/18at 23:55; Start 02/03/18 at 10:46; Stop 02/04/18 at 11:37; Status DC Dextrose (Dextrose 50%-Water Syringe) 12.5 gm PRN Q15MIN PRN IV SEE COMMENTS; Start 02/03/18 at 11:00 Oxycodone/ Acetaminophen (Percocet 5/325) 1 tab PRN Q4HRS PRN PO MILD PAIN, 1ST CHOICE Last administered on 02/12/18at 02:12; Start 02/03/18 at 11:00; Stop at 08:42; Status DC Oxycodone/ Acetaminophen (Percocet 5/325) 2 tab PRN Q4HRS PRN PO MODERATE PAIN , SEVERE PAIN; Start 02/03/18 at 11:00; Stop 02/12/18 at 08:42; Status DC Morphine Sulfate (Morphine Sulfate) 5 mg PRN Q3HRS PRN IV MODERATE TO SEVERE PAIN Last administered on 02/10/18at 17:55; Start 02/03/18 at 11:15 Docusate Sodium (Colace) 100 mg BID PO Last administered on 02/13/18at 09:55; Start 02/03/18 at 11:00 Ondansetron HCl (Zofran) 4 mg PRN Q6HRS PRN IV NAUESA, 1ST CHOICE Last administered on 02/12/18at 02:11; Start 02/03/18 at 11:00 Enoxaparin Sodium (Lovenox 40mg Syringe) 40 mg Q24H SQ ; Start 02/04/18 at 09:00 ; Stop 02/04/18 at 09:00; Status DC Hydralazine HCl (Apresoline Inj) 10 mg 1X PACU PRN IVP ELEVATED BP, SEE COMMENTS; Start 02/03/18 at 12:15; Stop 02/03/18 at 20:00; Status DC Oxycodone/ Acetaminophen (Percocet 5/325) 1 tab 1X PACU PRN PO PAIN Last administered on 02/03/18at 12:20; Start 02/03/18 at 12:15; Stop 02/03/18 at 20:00; Status DC Albuterol Sulfate (Ventolin Neb Soln) 2.5 mg PRN Q2HR PRN NEB [id number] Last administered on 02/13/18at 01:47; Start 02/03/18 at 15:00 Albuterol/ Ipratropium (Duoneb) 3 ml RTQID NEB Last administered on 02/12/18at 20:00; Start 02/03/18 at 16:00; Stop 02/13/18 at 01:32; Status DC Ondansetron HCl (Zofran) 4 mg PRN Q6HRS PRN IV NAUSEA/VOMITING; Start 02/04/18 at 07:00; Stop 02/05/18 at 06:59; Status DC Fentanyl Citrate (Fentanyl 2ml Vial) 25 mcg PRN Q5MIN PRN IV MILD PAIN; Start 02/04/18 at 07:00; Stop 02/05/18 at 06:59; Status DC Fentanyl Citrate (Fentanyl 2ml Vial) 50 mcg PRN Q5MIN PRN IV MODERATE TO SEVERE PAIN; Start 02/04/18 at 07:00; Stop 02/05/18 at 06:59; Status DC Morphine Sulfate (Morphine Sulfate) 1 mg PRN Q10MIN PRN IV SEVERE PAIN; Start 02/04/18 at 07:00; Stop 02/05/18 at 06:59; Status DC Ringer's Solution 1,000 ml @ 30 mls/hr Q24H IV ; Start 02/04/18 at 07:00; Stop 02/04/18 at 18:59; Status DC Lidocaine HCl (Xylocaine-Mpf 1% Vial) 2 ml PRN 1X PRN ID IV START; Start at 07:00; Stop 02/05/18 at 06:59; Status DC Prochlorperazine Edisylate (Compazine) 5 mg PACU PRN PRN IV NAUSEA, MRX1; Start 02/04/18 at 07:00; Stop 02/05/18 at 06:59; Status DC Furosemide (Lasix) 40 mg 1X ONCE IVP Last administered on 02/04/18at 12:47; Start 02/04/18 at 11:45; Stop 02/04/18 at 11:46; Status DC Sodium Chloride 1,000 ml @ 100 mls/hr Q10H IV Last administered on 02/05/18at 21 :05; Start 02/04/18 at 12:00; Stop 02/06/18 at 13:12; Status DC Hydralazine HCl (Apresoline Inj) 10 mg PRN Q4HRS PRN IVP ELEVATED BP, SEE COMMENTS Last administered on 02/10/18at 03:12; Start 02/04/18 at 12:15 Iohexol (Omnipaque 300 Mg/ml) 100 ml STK-MED ONCE .ROUTE ; Start 02/04/18 at 12: 11; Stop 02/04/18 at 12:12; Status DC Cefazolin Sodium/ Dextrose (Ancef 2gm Premix) 2 gm STK-MED ONCE IV ; Start at 07:00; Stop 02/04/18 at 12:31; Status DC Propofol 0 ml @ As Directed STK-MED ONCE IV ; Start 02/04/18 at 13:50; Stop at 13:51; Status DC Lidocaine HCl (Lidocaine Pf 2% Vial) 5 ml STK-MED ONCE .ROUTE ; Start 02/04/18 at 13:50; Stop 02/04/18 at 13:51; Status DC Famotidine (Pepcid Vial) 20 mg STK-MED ONCE .ROUTE ; Start 02/04/18 at 13:50; Stop 02/04/18 at 13:51; Status DC Dexamethasone Sodium Phosphate (Decadron) 20 mg STK-MED ONCE .ROUTE ; Start 02/04 at 13:50; Stop 02/04/18 at 13:52; Status DC Ondansetron HCl (Zofran) 4 mg STK-MED ONCE .ROUTE ; Start 02/04/18 at 13:50; Stop 02/04/18 at 13:52; Status DC Lorazepam (Ativan) 0.5 mg PRN Q8HRS PRN PO ANXIETY / AGITATION; Start 02/04/18 at 15:15 Furosemide (Lasix) 40 mg 1X ONCE IVP Last administered on 02/04/18at 17:00; Start 02/04/18 at 16:45; Stop 02/04/18 at 16:46; Status DC Ciprofloxacin/ Dextrose 200 ml @ 200 mls/hr Q12HR IV Last administered on at 08:10; Start 02/04/18 at 17:30; Stop 02/06/18 at 14:49; Status DC Metronidazole 100 ml @ 100 mls/hr Q12HR IV Last administered on 02/09/18at 20:52 ; Start 02/04/18 at 17:30; Stop 02/10/18 at 13:43; Status DC Metoclopramide HCl (Reglan Vial) 5 mg PRN Q6HRS PRN IV NAUSEA/VOMITING 2nd CHOICE Last administered on 02/05/18at 13:05; Start 02/04/18 at 17:30; Stop at 15:13; Status DC Lorazepam (Ativan) 0.5 mg PRN Q6HRS PRN IV ANXIETY / AGITATION 1ST CHOICE Last administered on 02/13/18at 09:56; Start 02/04/18 at 20:45 Acetaminophen (Tylenol) 500 mg PRN Q4HRS PRN PO FEVER; Start 02/04/18 at 22:15 Furosemide (Lasix) 40 mg 1X ONCE IVP Last administered on 02/05/18at 01:15; Start 02/05/18 at 01:30; Stop 02/05/18 at 01:31; Status DC Ringer's Solution 1,000 ml @ 75 mls/hr [id number] IV Last administered on at 09:52; Start 02/05/18 at 10:00; Stop 02/06/18 at 13:12; Status DC Iohexol (Omnipaque 300 Mg/ml) 100 ml STK-MED ONCE .ROUTE ; Start 02/05/18 at 10: 10; Stop 02/05/18 at 10:11; Status DC Fentanyl Citrate (Fentanyl 2ml Vial) 100 mcg STK-MED ONCE .ROUTE ; Start at 10:33; Stop 02/05/18 at 10:34; Status DC Ondansetron HCl (Zofran) 4 mg STK-MED ONCE .ROUTE ; Start 02/05/18 at 11:01; Stop 02/05/18 at 11:03; Status DC Iohexol (Omnipaque 300 Mg/ml) 100 ml STK-MED ONCE IV Last administered on at 11:27; Start 02/05/18 at 11:27; Stop 02/05/18 at 11:29; Status DC Haloperidol Lactate (Haldol Inj) 5 mg PRN Q6HRS PRN IVP AGITATION 2ND CHOICE Last administered on 02/10/18at 09:00; Start 02/05/18 at 12:30 Ciprofloxacin/ Dextrose 200 ml @ 200 mls/hr Q24H IV Last administered on at 08:25; Start 02/07/18 at 08:00; Stop 02/12/18 at 09:45; Status DC Magnesium Sulfate 50 ml @ 25 mls/hr PRN DAILY PRN IV for Mag < 1.7 on am labs; Start 02/07/18 at 09:00 Darbepoetin Rob (Aranesp) 60 mcg [id number] SQ Last administered on 02/07/18at 21: 30; Start 02/07/18 at 21:00 Lactobacillus Rhamnosus (Culturelle) 1 cap BID PO Last administered on at 09:55; Start 02/08/18 at 21:00 Sodium Chloride 1,000 ml @ 125 mls/hr Q8H IV Last administered on 02/09/18at 04: 39; Start 02/08/18 at 10:00; Stop 02/09/18 at 10:23; Status DC Furosemide (Lasix) 40 mg 1X ONCE IVP Last administered on 02/08/18at 12:07; Start 02/08/18 at 11:30; Stop 02/08/18 at 11:31; Status DC Amino Acids/ Glycerin/ Electrolytes 1,000 ml @ 75 mls/hr [id number] IV Last administered on 02/10/18at 05:43; Start 02/08/18 at 12:00; Stop 02/11/18 at 12:42; Status DC Sodium Bicarbonate (Sodium Bicarb Adult 8.4% Syr) 50 meq 1X ONCE IV Last administered on 02/08/18at 12:08; Start 02/08/18 at 12:30; Stop 02/08/18 at 12:31; Status DC Albuterol/ Ipratropium (Duoneb) 3 ml STK-MED ONCE .ROUTE ; Start 02/08/18 at 19: 39; Stop 02/08/18 at 19:40; Status DC Neostigmine Methylsulfate (Neostigmine Methylsulfate) 5 mg STK-MED ONCE .ROUTE ; Start 02/06/18 at 12:00; Stop 02/09/18 at 06:52; Status DC Lidocaine HCl (Lidocaine HCl 2% Abboject) 100 mg STK-MED ONCE .ROUTE ; Start 02/06/18 at 12:00; Stop 02/09/18 at 06:52; Status DC Phenylephrine HCl (PHENYLEPHRINE in 0.9% NACL PF) 2 mg STK-MED ONCE IV ; Start 02/06/18 at 12:00; Stop 02/09/18 at 06:52; Status DC Propofol (Diprivan) 200 mg STK-MED ONCE IV ; Start 02/06/18 at 12:00; Stop at 06:52; Status DC Glycopyrrolate (Robinul) 1 mg STK-MED ONCE .ROUTE ; Start 02/06/18 at 12:00; Stop 02/09/18 at 06:52; Status DC Dexamethasone Sodium Phosphate (Decadron) 20 mg STK-MED ONCE .ROUTE ; Start 02/06 at 12:00; Stop 02/09/18 at 06:52; Status DC Metoprolol Tartrate (Lopressor Vial) 5 mg PRN Q6HRS PRN IVP TACHYCARDIA; Start 02/09/18 at 12:45 Quetiapine Fumarate (SEROquel) 50 mg QHS PO Last administered on 02/09/18at 20:53 ; Start 02/09/18 at 21:00; Stop 02/10/18 at 14:54; Status DC Metronidazole 100 ml @ 100 mls/hr Q12H IV Last administered on 02/11/18at 02:01 ; Start 02/10/18 at 14:00; Stop 02/11/18 at 12:42; Status DC Dextrose/Sodium Chloride 1,000 ml @ 75 mls/hr [id number] IV Last administered on 02/11/18at 03:35; Start 02/10/18 at 14:15; Stop 02/11/18 at 12:42; Status DC Quetiapine Fumarate (SEROquel) 50 mg BID PO Last administered on 02/11/18at 20:28 ; Start 02/10/18 at 15:00; Stop 02/12/18 at 08:42; Status DC Dextrose 1,000 ml @ 100 mls/hr Q10H IV Last administered on 02/12/18at 05:41; Start 02/11/18 at 10:45; Stop 02/12/18 at 08:42; Status DC Doxycycline Hyclate (Vibra-Tab) 100 mg BID PO Last administered on 02/12/18at 08 :20; Start 02/11/18 at 11:30; Stop 02/12/18 at 16:05; Status DC Metronidazole (Flagyl) 500 mg Q12HR PO Last administered on 02/12/18at 08:21; Start 02/11/18 at 14:00; Stop 02/12/18 at 16:05; Status DC Amiodarone HCl (Cordarone) 100 mg DAILY PO Last administered on 02/13/18at 09:56 ; Start 02/11/18 at 14:00 Atorvastatin Calcium (Lipitor) 10 mg HS PO Last administered on 02/12/18at 20:18 ; Start 02/11/18 at 21:00 Metoprolol Succinate (Toprol Xl) 25 mg QPM PO Last administered on 02/12/18at 17 :48; Start 02/11/18 at 18:00 Ciprofloxacin (Cipro) 500 mg BID PO ; Start 02/12/18 at 21:00; Stop 02/12/18 at 21:00; Status DC Barium Sulfate (Varibar Thin Liquid Apple) 148 gm 1X ONCE PO Last administered on 02/12/18at 13:30; Start 02/12/18 at 13:30; Stop 02/12/18 at 13:31 ; Status DC Amoxicillin/ Clavulanate Potassium (Augmentin 875/ 125mg) 1 tab BID PO Last administered on 02/13/18 09:55; Start 02/12/18 at 17:00 Polyethylene Glycol (miraLAX PACKET) 17 gm DAILY PO Last administered on 17:48; Start 02/12/18 at 18:00; Stop 02/12/18 at 18:00; Status DC Polyethylene Glycol (miraLAX PACKET) 17 gm PRN DAILY PRN PO CONSTIPATION Last administered on 02/13/18 09:56; Start 02/12/18 at 18:00 Albuterol/ Ipratropium (Duoneb) 3 ml PRN Q2HRS PRN NEB SHORTNESS OF BREATH; Start 02/13/18 at 01:15; Status UNV Albuterol/ Ipratropium (Duoneb) 3 ml Q4HRS NEB Last administered on 02/13/18 11:19; Start 02/13/18 at 04:00 Senna/Docusate Sodium (Senna Plus) 1 tab BID PO Last administered on 02/13/18at 13:35; Start 02/13/18 at 13:00 Docusate Sodium (Colace) 100 mg BID PO ; Start 02/13/18 at 13:00; Status Cancel Magnesium Hydroxide (Milk Of Magnesia) 2,400 mg BID PO Last administered on 13:35; Start 02/13/18 at 13:00 Lactulose (Lactulose) 20 gm PRN Q12HR PRN PO CONSTIPATION; Start 02/13/18 at 12 :30 Bisacodyl (Dulcolax Supp) 10 mg PRN DAILY PRN DE CONSTIPATION; Start 02/13/18 at 12:30 Amino Acids/ Glycerin/ Electrolytes 1,000 ml @ 60 mls/hr [id number] IV Last administered on 02/13/18 13:36; Start 02/13/18 at 12:30 Active Scripts Active Reported Ferrous Sulfate 325 Mg Tablet 1 Tab PO DAILY Super B Complex-Vitamin C (B Complex With Vitamin C) 1 Each Tablet 1 Each PO Warfarin Sodium 5 Mg Tablet 7.5 Mg PO QTUTHSA Amiodarone Hcl 200 Mg Tablet 100 Mg PO DAILY Furosemide 20 Mg Tablet 10 Mg PO QMWF Metoprolol Succinate ( Xl ) (Metoprolol Succinate) 25 Mg Tab.er.24h 1 Tab PO QPM Calcitriol 0.25 Mcg Capsule 0.25 Mcg PO QM-W-F Warfarin Sodium 5 Mg Tablet 5 Mg PO QMWF Loratadine 10 Mg Tablet 10 Mg PO QHS Tamsulosin Hcl 0.4 Mg Cap.er.24h 0.4 Mg PO QHS Atorvastatin Calcium 10 Mg Tablet 10 Mg PO HS Duoneb 0.5-3(2.5) Mg/3 Ml (Albuterol/Ipratropium) 3 Ml Ampul.neb 3 Ml IH TID PRN Flonase (Fluticasone Propionate) 16 Gm Burns.susp 2 Burns NS BID Vitals/I & O Vital Sign - Last 24 Hours 02/12/18 02/12/18 02/12/18 02/12/18 15:28 15:36 17:48 19:00 Temp 99.0 99.3 99.0 99.3 Pulse 73 73 70 Resp 18 24 B/P (MAP) 132/58 (82) 132/58 123/61 (81) Pulse Ox 92 95 O2 Delivery Nasal Cannula Nasal Cannula Nasal Cannula O2 Flow Rate 4.0 4.0 3.0 02/12/18 02/12/18 02/12/18 02/13/18 20:00 20:01 23:00 01:47 Temp 98.6 98.6 Pulse 77 Resp 18 B/P (MAP) 163/60 (94) Pulse Ox 94 O2 Delivery Nasal Cannula Nasal Cannula Nasal Cannula Nasal Cannula O2 Flow Rate 4.0 4.0 3.0 4.0 02/13/18 02/13/18 02/13/18 02/13/18 03:00 04:25 07:00 07:27 Temp 98.5 96.1 98.5 96.1 Pulse 70 74 Resp 18 18 B/P (MAP) 125/58 (80) 152/92 (112) Pulse Ox 93 95 97 O2 Delivery Nasal Cannula Nasal Cannula Nasal Cannula Nasal Cannula O2 Flow Rate 3.0 4.0 3.0 4.0 02/13/18 02/13/18 02/13/18 02/13/18 08:00 09:56 11:00 11:20 Temp 97.5 97.5 Pulse 74 69 Resp 22 B/P (MAP) 152/92 134/86 (102) Pulse Ox 95 O2 Delivery Nasal Cannula Room Air Nasal Cannula O2 Flow Rate 4.0 4.0 Intake and Output 02/12/18 02/12/18 02/13/18 15:00 23:00 07:00 Intake Total 640 ml Output Total 360 ml 100 ml Balance 280 ml -100 ml JOSEP MOSQUERA MD Feb 13, 2018 14:14
[2018-02-13 15:00] VITALS: BP 166/76
--- NOTE | 2018-02-13 15:23 | PDOC ---
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 Supportive care talked to swallow eval and pt and , would like to find something honey thickened pt may wanna try add PPN add stool softner labs tmr Thanks for consulting us, we'll follow along with you FULL CODE off sitter History of Present Illness History of Present Illness ROS: no fever, chills, sob or chest pain mental much better no sitter not eating for 3 ds, since on dysphagia 2 diet with silent aspiration and pt refuse to eat since he cannot drink liquid no BM x10ds Vitals Vitals Vital Signs Date Time Temp Pulse Resp B/P (MAP) Pulse Ox O2 Delivery O2 Flow Rate FiO2 02/13/18 11:20 Nasal Cannula 4.0 02/13/18 11:00 97.5 69 22 134/86 (102) 95 97.5 Physical Exam General: Alert, Oriented X3, Cooperative, No acute distress Heart: Regular rate, Normal S1, Normal S2, No murmurs Lungs: Clear Abdomen: Normal bowel sounds, Soft, No tenderness, No hepatosplenomegaly, No masses Extremities: No clubbing, No cyanosis Skin: No breakdown, No significant lesion, Other (postop wound, sutures looking good, no tenderness around that site) Labs LABS Laboratory Tests Test 02/13/18 05:25 Sodium Level 146 mmol/L (136-145) Potassium Level 4.1 mmol/L (3.5-5.1) Chloride Level 113 mmol/L (98-107) Carbon Dioxide Level 28 mmol/L (21-32) Anion Gap 5 (6-14) Blood Urea Nitrogen 54 mg/dL (8-26) Creatinine 1.7 mg/dL (0.7-1.3) Estimated GFR (Cockcroft-Gault) 39.4 Glucose Level 113 mg/dL (70-99) Calcium Level 10.3 mg/dL (8.5-10.1) Phosphorus Level 2.9 mg/dL (2.6-4.7) Albumin 1.9 g/dL (3.4-5.0) Comment Review of Relevant I have reviewed the following items aron (where applicable) has been applied. Labs Laboratory Tests Test 02/12/18 07:15 02/13/18 05:25 Sodium Level 147 mmol/L (136-145) 146 mmol/L (136-145) Potassium Level 3.7 mmol/L (3.5-5.1) 4.1 mmol/L (3.5-5.1) Chloride Level 114 mmol/L (98-107) 113 mmol/L (98-107) Carbon Dioxide Level 27 mmol/L (21-32) 28 mmol/L (21-32) Anion Gap 6 (6-14) 5 (6-14) Blood Urea Nitrogen 51 mg/dL (8-26) 54 mg/dL (8-26) Creatinine 1.4 mg/dL (0.7-1.3) 1.7 mg/dL (0.7-1.3) Estimated GFR (Cockcroft-Gault) 49.3 39.4 Glucose Level 117 mg/dL (70-99) 113 mg/dL (70-99) Calcium Level 10.2 mg/dL (8.5-10.1) 10.3 mg/dL (8.5-10.1) Phosphorus Level 3.0 mg/dL (2.6-4.7) 2.9 mg/dL (2.6-4.7) Magnesium Level 1.6 mg/dL (1.8-2.4) Albumin 1.9 g/dL (3.4-5.0) 1.9 g/dL (3.4-5.0) Laboratory Tests Test 02/13/18 05:25 Sodium Level 146 mmol/L (136-145) Potassium Level 4.1 mmol/L (3.5-5.1) Chloride Level 113 mmol/L (98-107) Carbon Dioxide Level 28 mmol/L (21-32) Anion Gap 5 (6-14) Blood Urea Nitrogen 54 mg/dL (8-26) Creatinine 1.7 mg/dL (0.7-1.3) Estimated GFR (Cockcroft-Gault) 39.4 Glucose Level 113 mg/dL (70-99) Calcium Level 10.3 mg/dL (8.5-10.1) Phosphorus Level 2.9 mg/dL (2.6-4.7) Albumin 1.9 g/dL (3.4-5.0) Microbiology 02/04/18 Blood Culture - Final, Complete NO GROWTH AFTER 5 DAYS 02/08/18 - Final, Complete 02/08/18 - Final, Complete 02/08/18 - Final, Complete 02/08/18 - Final, Complete 02/08/18 Gram Stain Evaluation - Final, Complete 02/08/18 Sputum Culture - Final, Complete 02/08/18 Sputum Result 1 - Final, Complete 02/08/18 Sputum Result 2 - Final, Complete 02/08/18 Antimicrobic Susceptibility - Final, Complete Medications Current Medications Ondansetron HCl (Zofran) 4 mg PRN Q6HRS PRN IV NAUSEA/VOMITING Last administered on 02/04/18at 04:08; Start 02/03/18 at 07:00; Stop 02/04/18 at 06:59; Status DC Fentanyl Citrate (Fentanyl 2ml Vial) 25 mcg PRN Q5MIN PRN IV MILD PAIN Last administered on 02/03/18at 12:13; Start 02/03/18 at 07:00; Stop 02/04/18 at 06:59; Status DC Fentanyl Citrate (Fentanyl 2ml Vial) 50 mcg PRN Q5MIN PRN IV MODERATE TO SEVERE PAIN; Start 02/03/18 at 07:00; Stop 02/04/18 at 06:59; Status DC Morphine Sulfate (Morphine Sulfate) 1 mg PRN Q10MIN PRN IV SEVERE PAIN Last administered on 02/03/18at 11:42; Start 02/03/18 at 07:00; Stop 02/04/18 at 06:59; Status DC Ringer's Solution 1,000 ml @ 30 mls/hr Q24H IV Last administered on 02/03/18at 09:13; Start 02/03/18 at 07:00; Stop 02/03/18 at 18:59; Status DC Lidocaine HCl (Xylocaine-Mpf 1% Vial) 2 ml PRN 1X PRN ID PRIOR TO IV START; Start 02/03/18 at 07:00; Stop 02/04/18 at 06:59; Status DC Prochlorperazine Edisylate (Compazine) 5 mg PACU PRN PRN IV NAUSEA, MRX1; Start 02/03/18 at 07:00; Stop 02/04/18 at 06:59; Status DC Cefazolin Sodium/ Dextrose 50 ml @ 100 mls/hr 1X PREOP PRN IV PRIOR TO SURGERY Last administered on 02/03/18at 09:35; Start 02/03/18 at 08:00; Stop at 14:44; Status DC Fentanyl Citrate (Fentanyl 2ml Vial) 100 mcg STK-MED ONCE .ROUTE ; Start at 08:09; Stop 02/03/18 at 08:10; Status DC Rocuronium Meno (Zemuron) 50 mg STK-MED ONCE .ROUTE ; Start 02/03/18 at 08:09 ; Stop 02/03/18 at 08:10; Status DC Desflurane (Suprane) 60 ml STK-MED ONCE IH ; Start 02/03/18 at 08:09; Stop at 08:10; Status DC Dexamethasone Sodium Phosphate (Decadron) 20 mg STK-MED ONCE .ROUTE ; Start 02/03 at 08:09; Stop 02/03/18 at 08:10; Status DC Propofol 20 ml @ As Directed STK-MED ONCE IV ; Start 02/03/18 at 08:09; Stop 02/03 at 08:10; Status DC Lidocaine HCl (Lidocaine Pf 2% Vial) 5 ml STK-MED ONCE .ROUTE ; Start 02/03/18 at 08:09; Stop 02/03/18 at 08:10; Status DC Ondansetron HCl (Zofran) 4 mg STK-MED ONCE .ROUTE ; Start 02/03/18 at 08:09; Stop 02/03/18 at 08:10; Status DC Ketorolac Tromethamine (Toradol For Or Only) 30 mg STK-MED ONCE INJ ; Start 02/03 at 08:09; Stop 02/03/18 at 08:10; Status DC Ephedrine Sulfate (ePHEDrine PF IN SALINE SYRINGE) 50 mg STK-MED ONCE IV ; Start 02/03/18 at 08:15; Stop 02/03/18 at 08:16; Status DC Bupivacaine HCl/ Epinephrine Bitart (Marcaine-Epi 0.5%-[id number]) 50 ml STK-MED ONCE .ROUTE Last administered on 02/03/18at 09:49; Start 02/03/18 at 07:56; Stop 02/03/18 at 08:57; Status DC Iohexol (Omnipaque 300 Mg/ml) 100 ml STK-MED ONCE .ROUTE Last administered on at 09:49; Start 02/03/18 at 07:56; Stop 02/03/18 at 08:58; Status DC Phenylephrine HCl (PHENYLEPHRINE in 0.9% NACL PF) 1 mg STK-MED ONCE IV ; Start 02/03/18 at 09:24; Stop 02/03/18 at 09:25; Status DC Glycopyrrolate (Robinul) 1 mg STK-MED ONCE .ROUTE ; Start 02/03/18 at 09:55; Stop 02/03/18 at 09:56; Status DC Neostigmine Methylsulfate (Neostigmine Methylsulfate) 5 mg STK-MED ONCE .ROUTE ; Start 02/03/18 at 09:55; Stop 02/03/18 at 09:56; Status DC Albuterol Sulfate (Ventolin Neb Soln) 2.5 mg 1X PACU PRN NEB SHORTNESS OF BREATH Last administered on 02/03/18at 10:53; Start 02/03/18 at 11:00; Stop at 17:39; Status DC Diphenhydramine HCl (Benadryl) 25 mg PRN Q6HRS PRN PO ITCHING; Start 02/03/18 at 11:00 Diphenhydramine HCl (Benadryl) 25 mg PRN Q6HRS PRN IV ITCHING Last administered on 02/09/18at 22:30; Start 02/03/18 at 11:00 Enoxaparin Sodium (Lovenox 40mg Syringe) 40 mg Q24H SQ ; Start 02/03/18 at 11:00 ; Status Cancel Sodium Chloride (Normal Saline Flush) 3 ml QSHIFT PRN IV AFTER MEDS AND BLOOD DRAWS; Start 02/03/18 at 11:00 Potassium Chloride/Sodium Chloride 1,000 ml @ 75 mls/hr [id number] IV Last administered on 02/03/18at 23:55; Start 02/03/18 at 10:46; Stop 02/04/18 at 11:37; Status DC Dextrose (Dextrose 50%-Water Syringe) 12.5 gm PRN Q15MIN PRN IV SEE COMMENTS; Start 02/03/18 at 11:00 Oxycodone/ Acetaminophen (Percocet 5/325) 1 tab PRN Q4HRS PRN PO MILD PAIN, 1ST CHOICE Last administered on 02/12/18at 02:12; Start 02/03/18 at 11:00; Stop at 08:42; Status DC Oxycodone/ Acetaminophen (Percocet 5/325) 2 tab PRN Q4HRS PRN PO MODERATE PAIN , SEVERE PAIN; Start 02/03/18 at 11:00; Stop 02/12/18 at 08:42; Status DC Morphine Sulfate (Morphine Sulfate) 5 mg PRN Q3HRS PRN IV MODERATE TO SEVERE PAIN Last administered on 02/10/18at 17:55; Start 02/03/18 at 11:15 Docusate Sodium (Colace) 100 mg BID PO Last administered on 02/13/18at 09:55; Start 02/03/18 at 11:00 Ondansetron HCl (Zofran) 4 mg PRN Q6HRS PRN IV NAUESA, 1ST CHOICE Last administered on 02/12/18at 02:11; Start 02/03/18 at 11:00 Enoxaparin Sodium (Lovenox 40mg Syringe) 40 mg Q24H SQ ; Start 02/04/18 at 09:00 ; Stop 02/04/18 at 09:00; Status DC Hydralazine HCl (Apresoline Inj) 10 mg 1X PACU PRN IVP ELEVATED BP, SEE COMMENTS; Start 02/03/18 at 12:15; Stop 02/03/18 at 20:00; Status DC Oxycodone/ Acetaminophen (Percocet 5/325) 1 tab 1X PACU PRN PO PAIN Last administered on 02/03/18at 12:20; Start 02/03/18 at 12:15; Stop 02/03/18 at 20:00; Status DC Albuterol Sulfate (Ventolin Neb Soln) 2.5 mg PRN Q2HR PRN NEB [id number] Last administered on 02/13/18at 01:47; Start 02/03/18 at 15:00 Albuterol/ Ipratropium (Duoneb) 3 ml RTQID NEB Last administered on 02/12/18at 20:00; Start 02/03/18 at 16:00; Stop 02/13/18 at 01:32; Status DC Ondansetron HCl (Zofran) 4 mg PRN Q6HRS PRN IV NAUSEA/VOMITING; Start 02/04/18 at 07:00; Stop 02/05/18 at 06:59; Status DC Fentanyl Citrate (Fentanyl 2ml Vial) 25 mcg PRN Q5MIN PRN IV MILD PAIN; Start 02/04/18 at 07:00; Stop 02/05/18 at 06:59; Status DC Fentanyl Citrate (Fentanyl 2ml Vial) 50 mcg PRN Q5MIN PRN IV MODERATE TO SEVERE PAIN; Start 02/04/18 at 07:00; Stop 02/05/18 at 06:59; Status DC Morphine Sulfate (Morphine Sulfate) 1 mg PRN Q10MIN PRN IV SEVERE PAIN; Start 02/04/18 at 07:00; Stop 02/05/18 at 06:59; Status DC Ringer's Solution 1,000 ml @ 30 mls/hr Q24H IV ; Start 02/04/18 at 07:00; Stop 02/04/18 at 18:59; Status DC Lidocaine HCl (Xylocaine-Mpf 1% Vial) 2 ml PRN 1X PRN ID IV START; Start at 07:00; Stop 02/05/18 at 06:59; Status DC Prochlorperazine Edisylate (Compazine) 5 mg PACU PRN PRN IV NAUSEA, MRX1; Start 02/04/18 at 07:00; Stop 02/05/18 at 06:59; Status DC Furosemide (Lasix) 40 mg 1X ONCE IVP Last administered on 02/04/18at 12:47; Start 02/04/18 at 11:45; Stop 02/04/18 at 11:46; Status DC Sodium Chloride 1,000 ml @ 100 mls/hr Q10H IV Last administered on 02/05/18at 21 :05; Start 02/04/18 at 12:00; Stop 02/06/18 at 13:12; Status DC Hydralazine HCl (Apresoline Inj) 10 mg PRN Q4HRS PRN IVP ELEVATED BP, SEE COMMENTS Last administered on 02/10/18at 03:12; Start 02/04/18 at 12:15 Iohexol (Omnipaque 300 Mg/ml) 100 ml STK-MED ONCE .ROUTE ; Start 02/04/18 at 12: 11; Stop 02/04/18 at 12:12; Status DC Cefazolin Sodium/ Dextrose (Ancef 2gm Premix) 2 gm STK-MED ONCE IV ; Start at 07:00; Stop 02/04/18 at 12:31; Status DC Propofol 0 ml @ As Directed STK-MED ONCE IV ; Start 02/04/18 at 13:50; Stop at 13:51; Status DC Lidocaine HCl (Lidocaine Pf 2% Vial) 5 ml STK-MED ONCE .ROUTE ; Start 02/04/18 at 13:50; Stop 02/04/18 at 13:51; Status DC Famotidine (Pepcid Vial) 20 mg STK-MED ONCE .ROUTE ; Start 02/04/18 at 13:50; Stop 02/04/18 at 13:51; Status DC Dexamethasone Sodium Phosphate (Decadron) 20 mg STK-MED ONCE .ROUTE ; Start 02/04 at 13:50; Stop 02/04/18 at 13:52; Status DC Ondansetron HCl (Zofran) 4 mg STK-MED ONCE .ROUTE ; Start 02/04/18 at 13:50; Stop 02/04/18 at 13:52; Status DC Lorazepam (Ativan) 0.5 mg PRN Q8HRS PRN PO ANXIETY / AGITATION; Start 02/04/18 at 15:15 Furosemide (Lasix) 40 mg 1X ONCE IVP Last administered on 02/04/18at 17:00; Start 02/04/18 at 16:45; Stop 02/04/18 at 16:46; Status DC Ciprofloxacin/ Dextrose 200 ml @ 200 mls/hr Q12HR IV Last administered on at 08:10; Start 02/04/18 at 17:30; Stop 02/06/18 at 14:49; Status DC Metronidazole 100 ml @ 100 mls/hr Q12HR IV Last administered on 02/09/18at 20:52 ; Start 02/04/18 at 17:30; Stop 02/10/18 at 13:43; Status DC Metoclopramide HCl (Reglan Vial) 5 mg PRN Q6HRS PRN IV NAUSEA/VOMITING 2nd CHOICE Last administered on 02/05/18at 13:05; Start 02/04/18 at 17:30; Stop at 15:13; Status DC Lorazepam (Ativan) 0.5 mg PRN Q6HRS PRN IV ANXIETY / AGITATION 1ST CHOICE Last administered on 02/13/18at 09:56; Start 02/04/18 at 20:45 Acetaminophen (Tylenol) 500 mg PRN Q4HRS PRN PO FEVER; Start 02/04/18 at 22:15 Furosemide (Lasix) 40 mg 1X ONCE IVP Last administered on 02/05/18at 01:15; Start 02/05/18 at 01:30; Stop 02/05/18 at 01:31; Status DC Ringer's Solution 1,000 ml @ 75 mls/hr [id number] IV Last administered on at 09:52; Start 02/05/18 at 10:00; Stop 02/06/18 at 13:12; Status DC Iohexol (Omnipaque 300 Mg/ml) 100 ml STK-MED ONCE .ROUTE ; Start 02/05/18 at 10: 10; Stop 02/05/18 at 10:11; Status DC Fentanyl Citrate (Fentanyl 2ml Vial) 100 mcg STK-MED ONCE .ROUTE ; Start at 10:33; Stop 02/05/18 at 10:34; Status DC Ondansetron HCl (Zofran) 4 mg STK-MED ONCE .ROUTE ; Start 02/05/18 at 11:01; Stop 02/05/18 at 11:03; Status DC Iohexol (Omnipaque 300 Mg/ml) 100 ml STK-MED ONCE IV Last administered on at 11:27; Start 02/05/18 at 11:27; Stop 02/05/18 at 11:29; Status DC Haloperidol Lactate (Haldol Inj) 5 mg PRN Q6HRS PRN IVP AGITATION 2ND CHOICE Last administered on 02/10/18at 09:00; Start 02/05/18 at 12:30 Ciprofloxacin/ Dextrose 200 ml @ 200 mls/hr Q24H IV Last administered on at 08:25; Start 02/07/18 at 08:00; Stop 02/12/18 at 09:45; Status DC Magnesium Sulfate 50 ml @ 25 mls/hr PRN DAILY PRN IV for Mag < 1.7 on am labs; Start 02/07/18 at 09:00 Darbepoetin Rob (Aranesp) 60 mcg [id number] SQ Last administered on 02/07/18at 21: 30; Start 02/07/18 at 21:00 Lactobacillus Rhamnosus (Culturelle) 1 cap BID PO Last administered on at 09:55; Start 02/08/18 at 21:00 Sodium Chloride 1,000 ml @ 125 mls/hr Q8H IV Last administered on 02/09/18at 04: 39; Start 02/08/18 at 10:00; Stop 02/09/18 at 10:23; Status DC Furosemide (Lasix) 40 mg 1X ONCE IVP Last administered on 02/08/18at 12:07; Start 02/08/18 at 11:30; Stop 02/08/18 at 11:31; Status DC Amino Acids/ Glycerin/ Electrolytes 1,000 ml @ 75 mls/hr [id number] IV Last administered on 02/10/18at 05:43; Start 02/08/18 at 12:00; Stop 02/11/18 at 12:42; Status DC Sodium Bicarbonate (Sodium Bicarb Adult 8.4% Syr) 50 meq 1X ONCE IV Last administered on 02/08/18at 12:08; Start 02/08/18 at 12:30; Stop 02/08/18 at 12:31; Status DC Albuterol/ Ipratropium (Duoneb) 3 ml STK-MED ONCE .ROUTE ; Start 02/08/18 at 19: 39; Stop 02/08/18 at 19:40; Status DC Neostigmine Methylsulfate (Neostigmine Methylsulfate) 5 mg STK-MED ONCE .ROUTE ; Start 02/06/18 at 12:00; Stop 02/09/18 at 06:52; Status DC Lidocaine HCl (Lidocaine HCl 2% Abboject) 100 mg STK-MED ONCE .ROUTE ; Start 02/06/18 at 12:00; Stop 02/09/18 at 06:52; Status DC Phenylephrine HCl (PHENYLEPHRINE in 0.9% NACL PF) 2 mg STK-MED ONCE IV ; Start 02/06/18 at 12:00; Stop 02/09/18 at 06:52; Status DC Propofol (Diprivan) 200 mg STK-MED ONCE IV ; Start 02/06/18 at 12:00; Stop at 06:52; Status DC Glycopyrrolate (Robinul) 1 mg STK-MED ONCE .ROUTE ; Start 02/06/18 at 12:00; Stop 02/09/18 at 06:52; Status DC Dexamethasone Sodium Phosphate (Decadron) 20 mg STK-MED ONCE .ROUTE ; Start 02/06 at 12:00; Stop 02/09/18 at 06:52; Status DC Metoprolol Tartrate (Lopressor Vial) 5 mg PRN Q6HRS PRN IVP TACHYCARDIA; Start 02/09/18 at 12:45 Quetiapine Fumarate (SEROquel) 50 mg QHS PO Last administered on 02/09/18at 20:53 ; Start 02/09/18 at 21:00; Stop 02/10/18 at 14:54; Status DC Metronidazole 100 ml @ 100 mls/hr Q12H IV Last administered on 02/11/18at 02:01 ; Start 02/10/18 at 14:00; Stop 02/11/18 at 12:42; Status DC Dextrose/Sodium Chloride 1,000 ml @ 75 mls/hr [id number] IV Last administered on 02/11/18at 03:35; Start 02/10/18 at 14:15; Stop 02/11/18 at 12:42; Status DC Quetiapine Fumarate (SEROquel) 50 mg BID PO Last administered on 02/11/18at 20:28 ; Start 02/10/18 at 15:00; Stop 02/12/18 at 08:42; Status DC Dextrose 1,000 ml @ 100 mls/hr Q10H IV Last administered on 02/12/18at 05:41; Start 02/11/18 at 10:45; Stop 02/12/18 at 08:42; Status DC Doxycycline Hyclate (Vibra-Tab) 100 mg BID PO Last administered on 02/12/18 08 :20; Start 02/11/18 at 11:30; Stop 02/12/18 at 16:05; Status DC Metronidazole (Flagyl) 500 mg Q12HR PO Last administered on 02/12/18 08:21; Start 02/11/18 at 14:00; Stop 02/12/18 at 16:05; Status DC Amiodarone HCl (Cordarone) 100 mg DAILY PO Last administered on 02/13/18 09:56 ; Start 02/11/18 at 14:00 Atorvastatin Calcium (Lipitor) 10 mg HS PO Last administered on 02/12/18 20:18 ; Start 02/11/18 at 21:00 Metoprolol Succinate (Toprol Xl) 25 mg QPM PO Last administered on 02/12/18 17 :48; Start 02/11/18 at 18:00 Ciprofloxacin (Cipro) 500 mg BID PO ; Start 02/12/18 at 21:00; Stop 02/12/18 at 21:00; Status DC Barium Sulfate (Varibar Thin Liquid Apple) 148 gm 1X ONCE PO Last administered on 02/12/18 13:30; Start 02/12/18 at 13:30; Stop 02/12/18 at 13:31 ; Status DC Amoxicillin/ Clavulanate Potassium (Augmentin 875/ 125mg) 1 tab BID PO Last administered on 02/13/18 09:55; Start 02/12/18 at 17:00 Polyethylene Glycol (miraLAX PACKET) 17 gm DAILY PO Last administered on 17:48; Start 02/12/18 at 18:00; Stop 02/12/18 at 18:00; Status DC Polyethylene Glycol (miraLAX PACKET) 17 gm PRN DAILY PRN PO CONSTIPATION Last administered on 02/13/18 09:56; Start 02/12/18 at 18:00 Albuterol/ Ipratropium (Duoneb) 3 ml PRN Q2HRS PRN NEB SHORTNESS OF BREATH; Start 02/13/18 at 01:15; Status UNV Albuterol/ Ipratropium (Duoneb) 3 ml Q4HRS NEB Last administered on 02/13/18 11:19; Start 02/13/18 at 04:00 Senna/Docusate Sodium (Senna Plus) 1 tab BID PO Last administered on 02/13/18at 13:35; Start 02/13/18 at 13:00 Docusate Sodium (Colace) 100 mg BID PO ; Start 02/13/18 at 13:00; Status Cancel Magnesium Hydroxide (Milk Of Magnesia) 2,400 mg BID PO Last administered on 05/23at 13:35; Start 02/13/18 at 13:00 Lactulose (Lactulose) 20 gm PRN Q12HR PRN PO CONSTIPATION; Start 02/13/18 at 12 :30 Bisacodyl (Dulcolax Supp) 10 mg PRN DAILY PRN [place] CONSTIPATION; Start 02/13/18 at 12:30 Amino Acids/ Glycerin/ Electrolytes 1,000 ml @ 60 mls/hr [id number] IV Last administered on 02/13/18at 13:36; Start 02/13/18 at 12:30 Active Scripts Active Reported Ferrous Sulfate 325 Mg Tablet 1 Tab PO DAILY Super B Complex-Vitamin C (B Complex With Vitamin C) 1 Each Tablet 1 Each PO Warfarin Sodium 5 Mg Tablet 7.5 Mg PO QTUTHSA Amiodarone Hcl 200 Mg Tablet 100 Mg PO DAILY Furosemide 20 Mg Tablet 10 Mg PO QMWF Metoprolol Succinate ( Xl ) (Metoprolol Succinate) 25 Mg Tab.er.24h 1 Tab PO QPM Calcitriol 0.25 Mcg Capsule 0.25 Mcg PO QM-W-F Warfarin Sodium 5 Mg Tablet 5 Mg PO QMWF Loratadine 10 Mg Tablet 10 Mg PO QHS Tamsulosin Hcl 0.4 Mg Cap.er.24h 0.4 Mg PO QHS Atorvastatin Calcium 10 Mg Tablet 10 Mg PO HS Duoneb 0.5-3(2.5) Mg/3 Ml (Albuterol/Ipratropium) 3 Ml Ampul.neb 3 Ml IH TID PRN Flonase (Fluticasone Propionate) 16 Gm Cowan.susp 2 Cowan NS BID Vitals/I & O Vital Sign - Last 24 Hours 02/12/18 02/12/18 02/12/18 02/12/18 15:28 15:36 17:48 19:00 Temp 99.0 99.3 99.0 99.3 Pulse 73 73 70 Resp 18 24 B/P (MAP) 132/58 (82) 132/58 123/61 (81) Pulse Ox 92 95 O2 Delivery Nasal Cannula Nasal Cannula Nasal Cannula O2 Flow Rate 4.0 4.0 3.0 02/12/18 02/12/18 02/12/18 02/13/18 20:00 20:01 23:00 01:47 Temp 98.6 98.6 Pulse 77 Resp 18 B/P (MAP) 163/60 (94) Pulse Ox 94 O2 Delivery Nasal Cannula Nasal Cannula Nasal Cannula Nasal Cannula O2 Flow Rate 4.0 4.0 3.0 4.0 02/13/18 02/13/18 02/13/18 02/13/18 03:00 04:25 07:00 07:27 Temp 98.5 96.1 98.5 96.1 Pulse 70 74 Resp 18 18 B/P (MAP) 125/58 (80) 152/92 (112) Pulse Ox 93 95 97 O2 Delivery Nasal Cannula Nasal Cannula Nasal Cannula Nasal Cannula O2 Flow Rate 3.0 4.0 3.0 4.0 02/13/18 02/13/18 02/13/18 02/13/18 08:00 09:56 11:00 11:20 Temp 97.5 97.5 Pulse 74 69 Resp 22 B/P (MAP) 152/92 134/86 (102) Pulse Ox 95 O2 Delivery Nasal Cannula Room Air Nasal Cannula O2 Flow Rate 4.0 4.0 Intake and Output 02/12/18 02/12/18 02/13/18 15:00 23:00 07:00 Intake Total 640 ml Output Total 360 ml 100 ml Balance 280 ml -100 ml MANUEL DE LUNA MD Feb 13, 2018 15:23
[2018-02-13] MEDS: POLYETHYLENE GLYCOL 3350 17 GM PACKET. PO SCH ×2 (16:00→21:21)
[2018-02-13] MEDS: METOPROLOL SUCC 24HR ER 25 MG TAB.ER.24H. PO SCH (18:30)
[2018-02-13 19:00] VITALS: BP 149/83
[2018-02-13] MEDS: ATORVASTATIN CALCIUM 10 MG TABLET. PO SCH (21:21)
[2018-02-13 23:00] VITALS: BP 136/55
[2018-02-14 03:00] VITALS: BP 150/49
[2018-02-14] MEDS: IPRATRPIUM/ALBUTEROL 0.5/2.5MG 3 ML NEBU. NEB SCH ×5 (03:26→20:00)
[2018-02-14] MEDS: AMINO AC 3%/ELECTROLYTE/GLYCER 1,000 ML IV SCH (05:10)
[2018-02-14 05:22] LABS: BASO # 0.1 x10^3/uL (0.0-0.2); BASO % 0 % (0-3); EOS # 0.1 x10^3/uL (0.0-0.7); EOS % 1 % (0-3); HEMATOCRIT 27.4 % (39.0-53.0); LYMPH # 0.8 x10^3/uL (1.0-4.8); LYMPH % 5 % (24-48); MEAN CORPUSCULAR HEMOGLOBIN 32 pg (25-35); MEAN CORPUSCULAR HGB CONC 33 g/dL (31-37); MEAN CORPUSCULAR VOLUME 98 fL (79-100); MONO # 1.3 x10^3/uL (0.0-1.1); MONO % 8 % (0-9); NEUT # 15.2 x10^3uL (1.8-7.7); NEUT % 87 % (31-73); PLATELET COUNT 144 x10^3/uL (140-400); WHITE BLOOD COUNT 17.5 x10^3/uL (4.0-11.0)
[2018-02-14 05:48] LABS: ALBUMIN 2.1 g/dL (3.4-5.0); CALCIUM 10.1 mg/dL (8.5-10.1); CREATININE 1.6 mg/dL (0.7-1.3); GFR 42.2; PHOSPHORUS 2.7 mg/dL (2.6-4.7); POTASSIUM 4.1 mmol/L (3.5-5.1)
[2018-02-14 07:00] VITALS: BP 138/60
[2018-02-14] MEDS: AMOXICILLIN/K CLAV 875/125MG TABLET. PO SCH ×2 (08:23→21:09)
[2018-02-14] MEDS: LACTOBACILLUS RHAMNOSUS GG 1 CAPSULE. PO SCH ×2 (08:23→21:09)
[2018-02-14] MEDS: AMIODARONE HCL 200 MG TABLET. PO SCH (08:24)
[2018-02-14] MEDS: POLYETHYLENE GLYCOL 3350 17 GM PACKET. PO SCH (08:27)
[2018-02-14] MEDS: SENNOSIDES/DOCUSATE 8.6/50MG TABLET. PO SCH (08:27)
[2018-02-14] MEDS: DOCUSATE SODIUM 100 MG CAPSULE. PO SCH (08:27)
[2018-02-14] MEDS: MAGNESIUM HYDROXIDE 2,400 MG/30 ML ORAL.SUSP. PO SCH (08:27)
--- NOTE | 2018-02-14 09:32 | PDOC ---
PULMONARY PROGRESS NOTES Subjective sob cough, better, on home 02, w activity and qhs, no pain Vitals Vital Signs Date Time Temp Pulse Resp B/P (MAP) Pulse Ox O2 Delivery O2 Flow Rate FiO2 02/14/18 08:24 68 150/49 02/14/18 07:48 97 Nasal Cannula 4.0 02/14/18 03:00 98.1 18 98.1 ROS: No Nausea General: Alert, No acute distress HEENT: Other (nc at perrl nose throat clear) Lungs: Clear Cardiovascular: Other (irreg irreg) Abdomen: Soft, Non-tender, Other (DISTENDED) Neuro Exam: Alert Extremities: No Edema Skin: Warm Labs Laboratory Tests Test 02/13/18 05:25 02/14/18 04:45 Sodium Level 146 mmol/L (136-145) 147 mmol/L (136-145) Potassium Level 4.1 mmol/L (3.5-5.1) 4.1 mmol/L (3.5-5.1) Chloride Level 113 mmol/L (98-107) 114 mmol/L (98-107) Carbon Dioxide Level 28 mmol/L (21-32) 30 mmol/L (21-32) Anion Gap 5 (6-14) 3 (6-14) Blood Urea Nitrogen 54 mg/dL (8-26) 48 mg/dL (8-26) Creatinine 1.7 mg/dL (0.7-1.3) 1.6 mg/dL (0.7-1.3) Estimated GFR (Cockcroft-Gault) 39.4 42.2 Glucose Level 113 mg/dL (70-99) 135 mg/dL (70-99) Calcium Level 10.3 mg/dL (8.5-10.1) 10.1 mg/dL (8.5-10.1) Phosphorus Level 2.9 mg/dL (2.6-4.7) 2.7 mg/dL (2.6-4.7) Albumin 1.9 g/dL (3.4-5.0) 2.1 g/dL (3.4-5.0) White Blood Count 17.5 x10^3/uL (4.0-11.0) Red Blood Count 2.80 x10^6/uL (4.30-5.70) Hemoglobin 9.0 g/dL (13.0-17.5) Hematocrit 27.4 % (39.0-53.0) Mean Corpuscular Volume 98 fL (79-100) Mean Corpuscular Hemoglobin 32 pg (25-35) Mean Corpuscular Hemoglobin Concent 33 g/dL (31-37) Red Cell Distribution Width 15.0 % (11.5-14.5) Platelet Count 144 x10^3/uL (140-400) Neutrophils (%) (Auto) 87 % (31-73) Lymphocytes (%) (Auto) 5 % (24-48) Monocytes (%) (Auto) 8 % (0-9) Eosinophils (%) (Auto) 1 % (0-3) Basophils (%) (Auto) 0 % (0-3) Neutrophils # (Auto) 15.2 x10^3uL (1.8-7.7) Lymphocytes # (Auto) 0.8 x10^3/uL (1.0-4.8) Monocytes # (Auto) 1.3 x10^3/uL (0.0-1.1) Eosinophils # (Auto) 0.1 x10^3/uL (0.0-0.7) Basophils # (Auto) 0.1 x10^3/uL (0.0-0.2) Laboratory Tests Test 02/14/18 04:45 White Blood Count 17.5 x10^3/uL (4.0-11.0) Red Blood Count 2.80 x10^6/uL (4.30-5.70) Hemoglobin 9.0 g/dL (13.0-17.5) Hematocrit 27.4 % (39.0-53.0) Mean Corpuscular Volume 98 fL (79-100) Mean Corpuscular Hemoglobin 32 pg (25-35) Mean Corpuscular Hemoglobin Concent 33 g/dL (31-37) Red Cell Distribution Width 15.0 % (11.5-14.5) Platelet Count 144 x10^3/uL (140-400) Neutrophils (%) (Auto) 87 % (31-73) Lymphocytes (%) (Auto) 5 % (24-48) Monocytes (%) (Auto) 8 % (0-9) Eosinophils (%) (Auto) 1 % (0-3) Basophils (%) (Auto) 0 % (0-3) Neutrophils # (Auto) 15.2 x10^3uL (1.8-7.7) Lymphocytes # (Auto) 0.8 x10^3/uL (1.0-4.8) Monocytes # (Auto) 1.3 x10^3/uL (0.0-1.1) Eosinophils # (Auto) 0.1 x10^3/uL (0.0-0.7) Basophils # (Auto) 0.1 x10^3/uL (0.0-0.2) Sodium Level 147 mmol/L (136-145) Potassium Level 4.1 mmol/L (3.5-5.1) Chloride Level 114 mmol/L (98-107) Carbon Dioxide Level 30 mmol/L (21-32) Anion Gap 3 (6-14) Blood Urea Nitrogen 48 mg/dL (8-26) Creatinine 1.6 mg/dL (0.7-1.3) Estimated GFR (Cockcroft-Gault) 42.2 Glucose Level 135 mg/dL (70-99) Calcium Level 10.1 mg/dL (8.5-10.1) Phosphorus Level 2.7 mg/dL (2.6-4.7) Albumin 2.1 g/dL (3.4-5.0) Medications Active Scripts Medications Dose Route/Sig Max Daily Dose Days Date Category Ferrous Sulfate 325 Mg Tablet 1 Tab PO DAILY 01/28/18 Reported Super B Complex-Vitamin C (B Complex With Vitamin C) 1 Each Tablet 1 Each PO 12/04/17 Reported Warfarin Sodium 5 Mg Tablet 7.5 Mg PO QTUTHSA 06/10/17 Reported Amiodarone Hcl 200 Mg Tablet 100 Mg PO DAILY 06/10/17 Reported Furosemide 20 Mg Tablet 10 Mg PO QMWF 06/10/17 Reported Metoprolol Succinate ( Xl ) (Metoprolol Succinate) 25 Mg Tab.er.24h 1 Tab PO QPM 11/13/16 Reported Calcitriol 0.25 Mcg Capsule 0.25 Mcg PO QM-W-F 05/24/16 Reported Warfarin Sodium 5 Mg Tablet 5 Mg PO QMWF 05/24/16 Reported Loratadine 10 Mg Tablet 10 Mg PO QHS 10/16/14 Reported Tamsulosin Hcl 0.4 Mg Cap.er.24h 0.4 Mg PO QHS 10/16/14 Reported Atorvastatin Calcium 10 Mg Tablet 10 Mg PO HS 10/16/14 Reported Duoneb 0.5-3(2.5) Mg/3 Ml (Albuterol/Ipratropium) 3 Ml Ampul.neb 3 Ml IH TID PRN 07/24/14 Reported Flonase (Fluticasone Propionate) 16 Gm [place].susp 2 [place] NS BID 01/06/14 Reported Comments CXR REVIEWED 02/09 ? Right basal atelectasis Impression . 1. Acute/Chronic resp failure, expected status post laparoscopic cholecystectomy. 02/03 2. Chronic obstructive pulmonary disease of the chronic bronchitic type. 3. Chronic atrial fibrillation. 4. Obstructive sleep apnea. 5. Common Bile duct stone S/P ERCP 02/05 6. JAYDON/CKD 7. Metabolic acidosis, relative ( he is a CO2 retainer), resolved 8. Postoperative delirium. resolved 02/05 ERCP with sphincterotomy/stone extraction Meds MAC/GOETT Pre-op dx jaundice/abnl IOC/choledocholithiasis Post-op dx choledocholithiasis s/p sphincterotomy/stone extraction large khalida-ampullary diverticulum Plan serial labs monitor for complications possibly advance diet in am if no adverse events Plan . CONTINUE 02 titration FOLLOW NEUROLOGY REC bronchodilator cont augmentin CONTINUE POST OP CARE increase activity IS 6 min walk at discharge discussed w pt and his USHA BECKER MD Feb 14, 2018 09:32
[2018-02-14 11:00] VITALS: BP 152/69
--- NOTE | 2018-02-14 11:10 | PDOC ---
Renal-Progress Notes Subjective Notes Notes NONE History of Present Illness Hx of present illness STABLE Vitals Vitals Vital Signs Date Time Temp Pulse Resp B/P (MAP) Pulse Ox O2 Delivery O2 Flow Rate FiO2 02/14/18 08:24 68 150/49 02/14/18 08:00 Nasal Cannula 4.0 02/14/18 07:48 97 02/14/18 07:00 98.1 20 98.1 Weight Weight [ ] I.O. Intake and Output Intake and Output 02/14/18 07:00 Intake Total 2160 ml Balance 2160 ml Intake Oral 2160 ml # Voids 4 # Bowel Movements 2 Labs Labs Laboratory Tests Test 02/14/18 04:45 White Blood Count 17.5 x10^3/uL (4.0-11.0) Red Blood Count 2.80 x10^6/uL (4.30-5.70) Hemoglobin 9.0 g/dL (13.0-17.5) Hematocrit 27.4 % (39.0-53.0) Mean Corpuscular Volume 98 fL (79-100) Mean Corpuscular Hemoglobin 32 pg (25-35) Mean Corpuscular Hemoglobin Concent 33 g/dL (31-37) Red Cell Distribution Width 15.0 % (11.5-14.5) Platelet Count 144 x10^3/uL (140-400) Neutrophils (%) (Auto) 87 % (31-73) Lymphocytes (%) (Auto) 5 % (24-48) Monocytes (%) (Auto) 8 % (0-9) Eosinophils (%) (Auto) 1 % (0-3) Basophils (%) (Auto) 0 % (0-3) Neutrophils # (Auto) 15.2 x10^3uL (1.8-7.7) Lymphocytes # (Auto) 0.8 x10^3/uL (1.0-4.8) Monocytes # (Auto) 1.3 x10^3/uL (0.0-1.1) Eosinophils # (Auto) 0.1 x10^3/uL (0.0-0.7) Basophils # (Auto) 0.1 x10^3/uL (0.0-0.2) Sodium Level 147 mmol/L (136-145) Potassium Level 4.1 mmol/L (3.5-5.1) Chloride Level 114 mmol/L (98-107) Carbon Dioxide Level 30 mmol/L (21-32) Anion Gap 3 (6-14) Blood Urea Nitrogen 48 mg/dL (8-26) Creatinine 1.6 mg/dL (0.7-1.3) Estimated GFR (Cockcroft-Gault) 42.2 Glucose Level 135 mg/dL (70-99) Calcium Level 10.1 mg/dL (8.5-10.1) Phosphorus Level 2.7 mg/dL (2.6-4.7) Albumin 2.1 g/dL (3.4-5.0) Micro Micro Microbiology 02/04/18 Blood Culture - Final, Complete NO GROWTH AFTER 5 DAYS 02/08/18 - Final, Complete 02/08/18 - Final, Complete 02/08/18 - Final, Complete 02/08/18 - Final, Complete 02/08/18 Gram Stain Evaluation - Final, Complete 02/08/18 Sputum Culture - Final, Complete 02/08/18 Sputum Result 1 - Final, Complete 02/08/18 Sputum Result 2 - Final, Complete 02/08/18 Antimicrobic Susceptibility - Final, Complete Review of Systems Constitutional: yes: alert, oriented Ears/Nose/Throat: Yes: no symptom reported Eyes: Yes: no symptom reported Pulmonary: Yes no symptom reported Cardiovascular: Yes no symptom reported Gastrointestional: Yes: no symptom reported Genitourinary: Yes: no symptom reported Musculoskeletal: Yes: no symptom reported Skin: Yes no symptom reported Psychiatric/Neurological: Yes: no symptom reported Endocrine: Yes: no symptom reported Physical Exam General Appearance: no apparent distress Respiratory: bilateral CTA Heart: S1S2 Abdomen: soft, bowel sounds present Genitourinary: bladder flat Extremities: pulses present Neurology: alert, follow commands, other (drowsy/groggy after ERCP) Musculoskeletal: Osteoarthritis Assessment Assessment IMP JAYDON-BETTER CR DOWN TO 1.6 HYPERNATREMIA-BETTER S/P LAP CHOLY AND THEN ERCP PLAN ANTIBIOTICS ENC PO ON PPN-HYPOTONIC LABS IN AM MICHELLE WHYTE MD Feb 14, 2018 11:09
[2018-02-14 11:16] LABS: % EOS 1 % (0-5); % LYMPHS 5 % (24-48); % METAS 2 % (0-0); % MONOS 1 % (0-10); % SEGS 91 % (35-66)
[2018-02-14 11:17] LABS: PLT ESTIMATE ADEQUATE (ADEQUATE)
[2018-02-14 12:08] LABS: BILIRUBIN,URINE NEGATIVE (NEG); CLARITY,URINE CLEAR; COLOR,URINE AMBER; NITRITE,URINE NEGATIVE (NEG); PROTEIN,URINE NEGATIVE (NEG-TRACE); UROBILINOGEN,URINE 0.2 mg/dL (0.2 mg/dL)
[2018-02-14 12:52] LABS: BACTERIA,URINE 0 /HPF (0-FEW); RBC,URINE 0 /HPF (0-2)
--- NOTE | 2018-02-14 13:35 | PDOC ---
PROGRESS NOTES Subjective Subjective frustrated by (aspiration) diet, I tried to explain reasoning Objective Objective Vital Signs Date Time Temp Pulse Resp B/P (MAP) Pulse Ox O2 Delivery O2 Flow Rate FiO2 02/14/18 13:15 Nasal Cannula 4.0 02/14/18 11:00 97.7 69 20 152/69 (96) 96 97.7 Intake and Output 02/14/18 07:00 Intake Total 2160 ml Balance 2160 ml Intake Oral 2160 ml # Voids 4 # Bowel Movements 2 Physical Exam Abdomen: Soft, No tenderness Plan Plan of Care Supportive tx Comment Review of Relevant I have reviewed the following items aron (where applicable) has been applied. Labs Laboratory Tests Test 02/13/18 05:25 02/14/18 04:45 02/14/18 09:30 Sodium Level 146 mmol/L (136-145) 147 mmol/L (136-145) Potassium Level 4.1 mmol/L (3.5-5.1) 4.1 mmol/L (3.5-5.1) Chloride Level 113 mmol/L (98-107) 114 mmol/L (98-107) Carbon Dioxide Level 28 mmol/L (21-32) 30 mmol/L (21-32) Anion Gap 5 (6-14) 3 (6-14) Blood Urea Nitrogen 54 mg/dL (8-26) 48 mg/dL (8-26) Creatinine 1.7 mg/dL (0.7-1.3) 1.6 mg/dL (0.7-1.3) Estimated GFR (Cockcroft-Gault) 39.4 42.2 Glucose Level 113 mg/dL (70-99) 135 mg/dL (70-99) Calcium Level 10.3 mg/dL (8.5-10.1) 10.1 mg/dL (8.5-10.1) Phosphorus Level 2.9 mg/dL (2.6-4.7) 2.7 mg/dL (2.6-4.7) Albumin 1.9 g/dL (3.4-5.0) 2.1 g/dL (3.4-5.0) White Blood Count 17.5 x10^3/uL (4.0-11.0) Red Blood Count 2.80 x10^6/uL (4.30-5.70) Hemoglobin 9.0 g/dL (13.0-17.5) Hematocrit 27.4 % (39.0-53.0) Mean Corpuscular Volume 98 fL (79-100) Mean Corpuscular Hemoglobin 32 pg (25-35) Mean Corpuscular Hemoglobin Concent 33 g/dL (31-37) Red Cell Distribution Width 15.0 % (11.5-14.5) Platelet Count 144 x10^3/uL (140-400) Neutrophils (%) (Auto) 87 % (31-73) Lymphocytes (%) (Auto) 5 % (24-48) Monocytes (%) (Auto) 8 % (0-9) Eosinophils (%) (Auto) 1 % (0-3) Basophils (%) (Auto) 0 % (0-3) Neutrophils # (Auto) 15.2 x10^3uL (1.8-7.7) Lymphocytes # (Auto) 0.8 x10^3/uL (1.0-4.8) Monocytes # (Auto) 1.3 x10^3/uL (0.0-1.1) Eosinophils # (Auto) 0.1 x10^3/uL (0.0-0.7) Basophils # (Auto) 0.1 x10^3/uL (0.0-0.2) Segmented Neutrophils % 91 % (35-66) Lymphocytes % 5 % (24-48) Monocytes % 1 % (0-10) Eosinophils % 1 % (0-5) Metamyelocytes % 2 % (0-0) Platelet Estimate Adequate (ADEQUATE) Urine Collection Type Unknown Urine Color [place] Urine Clarity Clear Urine pH 5.0 Urine Specific [place] 1.020 Urine Protein Negative mg/dL (NEG-TRACE) Urine Glucose (UA) Negative mg/dL (NEG) Urine Ketones (Stick) Negative mg/dL (NEG) Urine Blood Negative (NEG) Urine Nitrite Negative (NEG) Urine Bilirubin Negative (NEG) Urine Urobilinogen Dipstick 0.2 mg/dL (0.2 mg/dL) Urine Leukocyte Esterase Small (NEG) Urine RBC 0 /HPF (0-2) Urine WBC 5-10 /HPF (0-4) Urine Bacteria 0 /HPF (0-FEW) Laboratory Tests Test 02/14/18 04:45 02/14/18 09:30 White Blood Count 17.5 x10^3/uL (4.0-11.0) Red Blood Count 2.80 x10^6/uL (4.30-5.70) Hemoglobin 9.0 g/dL (13.0-17.5) Hematocrit 27.4 % (39.0-53.0) Mean Corpuscular Volume 98 fL (79-100) Mean Corpuscular Hemoglobin 32 pg (25-35) Mean Corpuscular Hemoglobin Concent 33 g/dL (31-37) Red Cell Distribution Width 15.0 % (11.5-14.5) Platelet Count 144 x10^3/uL (140-400) Neutrophils (%) (Auto) 87 % (31-73) Lymphocytes (%) (Auto) 5 % (24-48) Monocytes (%) (Auto) 8 % (0-9) Eosinophils (%) (Auto) 1 % (0-3) Basophils (%) (Auto) 0 % (0-3) Neutrophils # (Auto) 15.2 x10^3uL (1.8-7.7) Lymphocytes # (Auto) 0.8 x10^3/uL (1.0-4.8) Monocytes # (Auto) 1.3 x10^3/uL (0.0-1.1) Eosinophils # (Auto) 0.1 x10^3/uL (0.0-0.7) Basophils # (Auto) 0.1 x10^3/uL (0.0-0.2) Segmented Neutrophils % 91 % (35-66) Lymphocytes % 5 % (24-48) Monocytes % 1 % (0-10) Eosinophils % 1 % (0-5) Metamyelocytes % 2 % (0-0) Platelet Estimate Adequate (ADEQUATE) Sodium Level 147 mmol/L (136-145) Potassium Level 4.1 mmol/L (3.5-5.1) Chloride Level 114 mmol/L (98-107) Carbon Dioxide Level 30 mmol/L (21-32) Anion Gap 3 (6-14) Blood Urea Nitrogen 48 mg/dL (8-26) Creatinine 1.6 mg/dL (0.7-1.3) Estimated GFR (Cockcroft-Gault) 42.2 Glucose Level 135 mg/dL (70-99) Calcium Level 10.1 mg/dL (8.5-10.1) Phosphorus Level 2.7 mg/dL (2.6-4.7) Albumin 2.1 g/dL (3.4-5.0) Urine Collection Type Unknown Urine Color [place] Urine Clarity Clear Urine pH 5.0 Urine Specific [place] 1.020 Urine Protein Negative mg/dL (NEG-TRACE) Urine Glucose (UA) Negative mg/dL (NEG) Urine Ketones (Stick) Negative mg/dL (NEG) Urine Blood Negative (NEG) Urine Nitrite Negative (NEG) Urine Bilirubin Negative (NEG) Urine Urobilinogen Dipstick 0.2 mg/dL (0.2 mg/dL) Urine Leukocyte Esterase Small (NEG) Urine RBC 0 /HPF (0-2) Urine WBC 5-10 /HPF (0-4) Urine Bacteria 0 /HPF (0-FEW) Microbiology 02/04/18 Blood Culture - Final, Complete NO GROWTH AFTER 5 DAYS 02/08/18 - Final, Complete 02/08/18 - Final, Complete 02/08/18 - Final, Complete 02/08/18 - Final, Complete 02/08/18 Gram Stain Evaluation - Final, Complete 02/08/18 Sputum Culture - Final, Complete 02/08/18 Sputum Result 1 - Final, Complete 02/08/18 Sputum Result 2 - Final, Complete 02/08/18 Antimicrobic Susceptibility - Final, Complete Medications Current Medications Ondansetron HCl (Zofran) 4 mg PRN Q6HRS PRN IV NAUSEA/VOMITING Last administered on 02/04/18at 04:08; Start 02/03/18 at 07:00; Stop 02/04/18 at 06:59; Status DC Fentanyl Citrate (Fentanyl 2ml Vial) 25 mcg PRN Q5MIN PRN IV MILD PAIN Last administered on 02/03/18at 12:13; Start 02/03/18 at 07:00; Stop 02/04/18 at 06:59; Status DC Fentanyl Citrate (Fentanyl 2ml Vial) 50 mcg PRN Q5MIN PRN IV MODERATE TO SEVERE PAIN; Start 02/03/18 at 07:00; Stop 02/04/18 at 06:59; Status DC Morphine Sulfate (Morphine Sulfate) 1 mg PRN Q10MIN PRN IV SEVERE PAIN Last administered on 02/03/18at 11:42; Start 02/03/18 at 07:00; Stop 02/04/18 at 06:59; Status DC Ringer's Solution 1,000 ml @ 30 mls/hr Q24H IV Last administered on 02/03/18at 09:13; Start 02/03/18 at 07:00; Stop 02/03/18 at 18:59; Status DC Lidocaine HCl (Xylocaine-Mpf 1% Vial) 2 ml PRN 1X PRN ID PRIOR TO IV START; Start 02/03/18 at 07:00; Stop 02/04/18 at 06:59; Status DC Prochlorperazine Edisylate (Compazine) 5 mg PACU PRN PRN IV NAUSEA, MRX1; Start 02/03/18 at 07:00; Stop 02/04/18 at 06:59; Status DC Cefazolin Sodium/ Dextrose 50 ml @ 100 mls/hr 1X PREOP PRN IV PRIOR TO SURGERY Last administered on 02/03/18at 09:35; Start 02/03/18 at 08:00; Stop at 14:44; Status DC Fentanyl Citrate (Fentanyl 2ml Vial) 100 mcg STK-MED ONCE .ROUTE ; Start at 08:09; Stop 02/03/18 at 08:10; Status DC Rocuronium [place] (Zemuron) 50 mg STK-MED ONCE .ROUTE ; Start 02/03/18 at 08:09 ; Stop 02/03/18 at 08:10; Status DC Desflurane (Suprane) 60 ml STK-MED ONCE IH ; Start 02/03/18 at 08:09; Stop at 08:10; Status DC Dexamethasone Sodium Phosphate (Decadron) 20 mg STK-MED ONCE .ROUTE ; Start 02/03 at 08:09; Stop 02/03/18 at 08:10; Status DC Propofol 20 ml @ As Directed STK-MED ONCE IV ; Start 02/03/18 at 08:09; Stop 02/03 at 08:10; Status DC Lidocaine HCl (Lidocaine Pf 2% Vial) 5 ml STK-MED ONCE .ROUTE ; Start 02/03/18 at 08:09; Stop 02/03/18 at 08:10; Status DC Ondansetron HCl (Zofran) 4 mg STK-MED ONCE .ROUTE ; Start 02/03/18 at 08:09; Stop 02/03/18 at 08:10; Status DC Ketorolac Tromethamine (Toradol For Or Only) 30 mg STK-MED ONCE INJ ; Start 02/03 at 08:09; Stop 02/03/18 at 08:10; Status DC Ephedrine Sulfate (ePHEDrine PF IN SALINE SYRINGE) 50 mg STK-MED ONCE IV ; Start 02/03/18 at 08:15; Stop 02/03/18 at 08:16; Status DC Bupivacaine HCl/ Epinephrine Bitart (Marcaine-Epi 0.5%-[id number]) 50 ml STK-MED ONCE .ROUTE Last administered on 02/03/18at 09:49; Start 02/03/18 at 07:56; Stop 02/03/18 at 08:57; Status DC Iohexol (Omnipaque 300 Mg/ml) 100 ml STK-MED ONCE .ROUTE Last administered on at 09:49; Start 02/03/18 at 07:56; Stop 02/03/18 at 08:58; Status DC Phenylephrine HCl (PHENYLEPHRINE in 0.9% NACL PF) 1 mg STK-MED ONCE IV ; Start 02/03/18 at 09:24; Stop 02/03/18 at 09:25; Status DC Glycopyrrolate (Robinul) 1 mg STK-MED ONCE .ROUTE ; Start 02/03/18 at 09:55; Stop 02/03/18 at 09:56; Status DC Neostigmine Methylsulfate (Neostigmine Methylsulfate) 5 mg STK-MED ONCE .ROUTE ; Start 02/03/18 at 09:55; Stop 02/03/18 at 09:56; Status DC Albuterol Sulfate (Ventolin Neb Soln) 2.5 mg 1X PACU PRN NEB SHORTNESS OF BREATH Last administered on 02/03/18at 10:53; Start 02/03/18 at 11:00; Stop at 17:39; Status DC Diphenhydramine HCl (Benadryl) 25 mg PRN Q6HRS PRN PO ITCHING; Start 02/03/18 at 11:00 Diphenhydramine HCl (Benadryl) 25 mg PRN Q6HRS PRN IV ITCHING Last administered on 02/09/18at 22:30; Start 02/03/18 at 11:00 Enoxaparin Sodium (Lovenox 40mg Syringe) 40 mg Q24H SQ ; Start 02/03/18 at 11:00 ; Status Cancel Sodium Chloride (Normal Saline Flush) 3 ml QSHIFT PRN IV AFTER MEDS AND BLOOD DRAWS; Start 02/03/18 at 11:00 Potassium Chloride/Sodium Chloride 1,000 ml @ 75 mls/hr [id number] IV Last administered on 02/03/18at 23:55; Start 02/03/18 at 10:46; Stop 02/04/18 at 11:37; Status DC Dextrose (Dextrose 50%-Water Syringe) 12.5 gm PRN Q15MIN PRN IV SEE COMMENTS; Start 02/03/18 at 11:00 Oxycodone/ Acetaminophen (Percocet 5/325) 1 tab PRN Q4HRS PRN PO MILD PAIN, 1ST CHOICE Last administered on 02/12/18at 02:12; Start 02/03/18 at 11:00; Stop at 08:42; Status DC Oxycodone/ Acetaminophen (Percocet 5/325) 2 tab PRN Q4HRS PRN PO MODERATE PAIN , SEVERE PAIN; Start 02/03/18 at 11:00; Stop 02/12/18 at 08:42; Status DC Morphine Sulfate (Morphine Sulfate) 5 mg PRN Q3HRS PRN IV MODERATE TO SEVERE PAIN Last administered on 02/10/18at 17:55; Start 02/03/18 at 11:15 Docusate Sodium (Colace) 100 mg BID PO Last administered on 02/13/18at 21:21; Start 02/03/18 at 11:00; Stop 02/14/18 at 12:30; Status DC Ondansetron HCl (Zofran) 4 mg PRN Q6HRS PRN IV NAUESA, 1ST CHOICE Last administered on 02/12/18at 02:11; Start 02/03/18 at 11:00 Enoxaparin Sodium (Lovenox 40mg Syringe) 40 mg Q24H SQ ; Start 02/04/18 at 09:00 ; Stop 02/04/18 at 09:00; Status DC Hydralazine HCl (Apresoline Inj) 10 mg 1X PACU PRN IVP ELEVATED BP, SEE COMMENTS; Start 02/03/18 at 12:15; Stop 02/03/18 at 20:00; Status DC Oxycodone/ Acetaminophen (Percocet 5/325) 1 tab 1X PACU PRN PO PAIN Last administered on 02/03/18at 12:20; Start 02/03/18 at 12:15; Stop 02/03/18 at 20:00; Status DC Albuterol Sulfate (Ventolin Neb Soln) 2.5 mg PRN Q2HR PRN NEB [id number] Last administered on 02/13/18at 01:47; Start 02/03/18 at 15:00 Albuterol/ Ipratropium (Duoneb) 3 ml RTQID NEB Last administered on 02/12/18at 20:00; Start 02/03/18 at 16:00; Stop 02/13/18 at 01:32; Status DC Ondansetron HCl (Zofran) 4 mg PRN Q6HRS PRN IV NAUSEA/VOMITING; Start 02/04/18 at 07:00; Stop 02/05/18 at 06:59; Status DC Fentanyl Citrate (Fentanyl 2ml Vial) 25 mcg PRN Q5MIN PRN IV MILD PAIN; Start 02/04/18 at 07:00; Stop 02/05/18 at 06:59; Status DC Fentanyl Citrate (Fentanyl 2ml Vial) 50 mcg PRN Q5MIN PRN IV MODERATE TO SEVERE PAIN; Start 02/04/18 at 07:00; Stop 02/05/18 at 06:59; Status DC Morphine Sulfate (Morphine Sulfate) 1 mg PRN Q10MIN PRN IV SEVERE PAIN; Start 02/04/18 at 07:00; Stop 02/05/18 at 06:59; Status DC Ringer's Solution 1,000 ml @ 30 mls/hr Q24H IV ; Start 02/04/18 at 07:00; Stop 02/04/18 at 18:59; Status DC Lidocaine HCl (Xylocaine-Mpf 1% Vial) 2 ml PRN 1X PRN ID IV START; Start at 07:00; Stop 02/05/18 at 06:59; Status DC Prochlorperazine Edisylate (Compazine) 5 mg PACU PRN PRN IV NAUSEA, MRX1; Start 02/04/18 at 07:00; Stop 02/05/18 at 06:59; Status DC Furosemide (Lasix) 40 mg 1X ONCE IVP Last administered on 02/04/18at 12:47; Start 02/04/18 at 11:45; Stop 02/04/18 at 11:46; Status DC Sodium Chloride 1,000 ml @ 100 mls/hr Q10H IV Last administered on 02/05/18at 21 :05; Start 02/04/18 at 12:00; Stop 02/06/18 at 13:12; Status DC Hydralazine HCl (Apresoline Inj) 10 mg PRN Q4HRS PRN IVP ELEVATED BP, SEE COMMENTS Last administered on 02/10/18at 03:12; Start 02/04/18 at 12:15 Iohexol (Omnipaque 300 Mg/ml) 100 ml STK-MED ONCE .ROUTE ; Start 02/04/18 at 12: 11; Stop 02/04/18 at 12:12; Status DC Cefazolin Sodium/ Dextrose (Ancef 2gm Premix) 2 gm STK-MED ONCE IV ; Start at 07:00; Stop 02/04/18 at 12:31; Status DC Propofol 0 ml @ As Directed STK-MED ONCE IV ; Start 02/04/18 at 13:50; Stop at 13:51; Status DC Lidocaine HCl (Lidocaine Pf 2% Vial) 5 ml STK-MED ONCE .ROUTE ; Start 02/04/18 at 13:50; Stop 02/04/18 at 13:51; Status DC Famotidine (Pepcid Vial) 20 mg STK-MED ONCE .ROUTE ; Start 02/04/18 at 13:50; Stop 02/04/18 at 13:51; Status DC Dexamethasone Sodium Phosphate (Decadron) 20 mg STK-MED ONCE .ROUTE ; Start 02/04 at 13:50; Stop 02/04/18 at 13:52; Status DC Ondansetron HCl (Zofran) 4 mg STK-MED ONCE .ROUTE ; Start 02/04/18 at 13:50; Stop 02/04/18 at 13:52; Status DC Lorazepam (Ativan) 0.5 mg PRN Q8HRS PRN PO ANXIETY / AGITATION; Start 02/04/18 at 15:15 Furosemide (Lasix) 40 mg 1X ONCE IVP Last administered on 02/04/18at 17:00; Start 02/04/18 at 16:45; Stop 02/04/18 at 16:46; Status DC Ciprofloxacin/ Dextrose 200 ml @ 200 mls/hr Q12HR IV Last administered on at 08:10; Start 02/04/18 at 17:30; Stop 02/06/18 at 14:49; Status DC Metronidazole 100 ml @ 100 mls/hr Q12HR IV Last administered on 02/09/18at 20:52 ; Start 02/04/18 at 17:30; Stop 02/10/18 at 13:43; Status DC Metoclopramide HCl (Reglan Vial) 5 mg PRN Q6HRS PRN IV NAUSEA/VOMITING 2nd CHOICE Last administered on 02/05/18at 13:05; Start 02/04/18 at 17:30; Stop at 15:13; Status DC Lorazepam (Ativan) 0.5 mg PRN Q6HRS PRN IV ANXIETY / AGITATION 1ST CHOICE Last administered on 02/13/18at 09:56; Start 02/04/18 at 20:45 Acetaminophen (Tylenol) 500 mg PRN Q4HRS PRN PO FEVER; Start 02/04/18 at 22:15 Furosemide (Lasix) 40 mg 1X ONCE IVP Last administered on 02/05/18at 01:15; Start 02/05/18 at 01:30; Stop 02/05/18 at 01:31; Status DC Ringer's Solution 1,000 ml @ 75 mls/hr [id number] IV Last administered on at 09:52; Start 02/05/18 at 10:00; Stop 02/06/18 at 13:12; Status DC Iohexol (Omnipaque 300 Mg/ml) 100 ml STK-MED ONCE .ROUTE ; Start 02/05/18 at 10: 10; Stop 02/05/18 at 10:11; Status DC Fentanyl Citrate (Fentanyl 2ml Vial) 100 mcg STK-MED ONCE .ROUTE ; Start at 10:33; Stop 02/05/18 at 10:34; Status DC Ondansetron HCl (Zofran) 4 mg STK-MED ONCE .ROUTE ; Start 02/05/18 at 11:01; Stop 02/05/18 at 11:03; Status DC Iohexol (Omnipaque 300 Mg/ml) 100 ml STK-MED ONCE IV Last administered on at 11:27; Start 02/05/18 at 11:27; Stop 02/05/18 at 11:29; Status DC Haloperidol Lactate (Haldol Inj) 5 mg PRN Q6HRS PRN IVP AGITATION 2ND CHOICE Last administered on 02/10/18 09:00; Start 02/05/18 at 12:30 Ciprofloxacin/ Dextrose 200 ml @ 200 mls/hr Q24H IV Last administered on at 08:25; Start 02/07/18 at 08:00; Stop 02/12/18 at 09:45; Status DC Magnesium Sulfate 50 ml @ 25 mls/hr PRN DAILY PRN IV for Mag < 1.7 on am labs; Start 02/07/18 at 09:00 Darbepoetin Rob (Aranesp) 60 mcg [id number] SQ Last administered on 02/07/18at 21: 30; Start 02/07/18 at 21:00 Lactobacillus Rhamnosus (Culturelle) 1 cap BID PO Last administered on at 08:23; Start 02/08/18 at 21:00 Sodium Chloride 1,000 ml @ 125 mls/hr Q8H IV Last administered on 02/09/18at 04: 39; Start 02/08/18 at 10:00; Stop 02/09/18 at 10:23; Status DC Furosemide (Lasix) 40 mg 1X ONCE IVP Last administered on 02/08/18at 12:07; Start 02/08/18 at 11:30; Stop 02/08/18 at 11:31; Status DC Amino Acids/ Glycerin/ Electrolytes 1,000 ml @ 75 mls/hr [id number] IV Last administered on 02/10/18at 05:43; Start 02/08/18 at 12:00; Stop 02/11/18 at 12:42; Status DC Sodium Bicarbonate (Sodium Bicarb Adult 8.4% Syr) 50 meq 1X ONCE IV Last administered on 02/08/18at 12:08; Start 02/08/18 at 12:30; Stop 02/08/18 at 12:31; Status DC Albuterol/ Ipratropium (Duoneb) 3 ml STK-MED ONCE .ROUTE ; Start 02/08/18 at 19: 39; Stop 02/08/18 at 19:40; Status DC Neostigmine Methylsulfate (Neostigmine Methylsulfate) 5 mg STK-MED ONCE .ROUTE ; Start 02/06/18 at 12:00; Stop 02/09/18 at 06:52; Status DC Lidocaine HCl (Lidocaine HCl 2% Abboject) 100 mg STK-MED ONCE .ROUTE ; Start 02/06/18 at 12:00; Stop 02/09/18 at 06:52; Status DC Phenylephrine HCl (PHENYLEPHRINE in 0.9% NACL PF) 2 mg STK-MED ONCE IV ; Start 02/06/18 at 12:00; Stop 02/09/18 at 06:52; Status DC Propofol (Diprivan) 200 mg STK-MED ONCE IV ; Start 02/06/18 at 12:00; Stop at 06:52; Status DC Glycopyrrolate (Robinul) 1 mg STK-MED ONCE .ROUTE ; Start 02/06/18 at 12:00; Stop 02/09/18 at 06:52; Status DC Dexamethasone Sodium Phosphate (Decadron) 20 mg STK-MED ONCE .ROUTE ; Start 02/06 at 12:00; Stop 02/09/18 at 06:52; Status DC Metoprolol Tartrate (Lopressor Vial) 5 mg PRN Q6HRS PRN IVP TACHYCARDIA; Start 02/09/18 at 12:45 Quetiapine Fumarate (SEROquel) 50 mg QHS PO Last administered on 02/09/18at 20:53 ; Start 02/09/18 at 21:00; Stop 02/10/18 at 14:54; Status DC Metronidazole 100 ml @ 100 mls/hr Q12H IV Last administered on 02/11/18at 02:01 ; Start 02/10/18 at 14:00; Stop 02/11/18 at 12:42; Status DC Dextrose/Sodium Chloride 1,000 ml @ 75 mls/hr [id number] IV Last administered on 02/11/18at 03:35; Start 02/10/18 at 14:15; Stop 02/11/18 at 12:42; Status DC Quetiapine Fumarate (SEROquel) 50 mg BID PO Last administered on 02/11/18at 20:28 ; Start 02/10/18 at 15:00; Stop 02/12/18 at 08:42; Status DC Dextrose 1,000 ml @ 100 mls/hr Q10H IV Last administered on 02/12/18at 05:41; Start 02/11/18 at 10:45; Stop 02/12/18 at 08:42; Status DC Doxycycline Hyclate (Vibra-Tab) 100 mg BID PO Last administered on 02/12/18at 08 :20; Start 02/11/18 at 11:30; Stop 02/12/18 at 16:05; Status DC Metronidazole (Flagyl) 500 mg Q12HR PO Last administered on 02/12/18at 08:21; Start 02/11/18 at 14:00; Stop 02/12/18 at 16:05; Status DC Amiodarone HCl (Cordarone) 100 mg DAILY PO Last administered on 02/14/18at 08:24 ; Start 02/11/18 at 14:00 Atorvastatin Calcium (Lipitor) 10 mg HS PO Last administered on 02/13/18at 21:21 ; Start 02/11/18 at 21:00 Metoprolol Succinate (Toprol Xl) 25 mg QPM PO Last administered on 02/13/18at 18 :30; Start 02/11/18 at 18:00 Ciprofloxacin (Cipro) 500 mg BID PO ; Start 02/12/18 at 21:00; Stop 02/12/18 at 21:00; Status DC Barium Sulfate (Varibar Thin Liquid Apple) 148 gm 1X ONCE PO Last administered on 02/12/18at 13:30; Start 02/12/18 at 13:30; Stop 02/12/18 at 13:31 ; Status DC Amoxicillin/ Clavulanate Potassium (Augmentin 875/ 125mg) 1 tab BID PO Last administered on 02/14/18at 08:23; Start 02/12/18 at 17:00 Polyethylene Glycol (miraLAX PACKET) 17 gm DAILY PO Last administered on at 17:48; Start 02/12/18 at 18:00; Stop 02/12/18 at 18:00; Status DC Polyethylene Glycol (miraLAX PACKET) 17 gm PRN DAILY PRN PO CONSTIPATION Last administered on 02/13/18at 09:56; Start 02/12/18 at 18:00; Stop 02/13/18 at 15:21 ; Status DC Albuterol/ Ipratropium (Duoneb) 3 ml PRN Q2HRS PRN NEB SHORTNESS OF BREATH; Start 02/13/18 at 01:15; Status UNV Albuterol/ Ipratropium (Duoneb) 3 ml Q4HRS NEB Last administered on 02/14/18at 13:15; Start 02/13/18 at 04:00 Senna/Docusate Sodium (Senna Plus) 1 tab BID PO Last administered on 02/13/18at 21:22; Start 02/13/18 at 13:00; Stop 02/14/18 at 12:30; Status DC Docusate Sodium (Colace) 100 mg BID PO ; Start 02/13/18 at 13:00; Status Cancel Magnesium Hydroxide (Milk Of Magnesia) 2,400 mg BID PO Last administered on 05/23at 21:21; Start 02/13/18 at 13:00; Stop 02/14/18 at 12:30; Status DC Lactulose (Lactulose) 20 gm PRN Q12HR PRN PO CONSTIPATION; Start 02/13/18 at 12 :30 Bisacodyl (Dulcolax Supp) 10 mg PRN DAILY PRN ND CONSTIPATION; Start 02/13/18 at 12:30 Amino Acids/ Glycerin/ Electrolytes 1,000 ml @ 80 mls/hr [id number] IV Last administered on 02/13/18at 13:36; Start 02/13/18 at 12:30 Polyethylene Glycol (miraLAX PACKET) 17 gm BID PO Last administered on at 21:21; Start 02/13/18 at 16:00; Stop 02/14/18 at 12:30; Status DC Active Scripts Active Reported Ferrous Sulfate 325 Mg Tablet 1 Tab PO DAILY Super B Complex-Vitamin C (B Complex With Vitamin C) 1 Each Tablet 1 Each PO Warfarin Sodium 5 Mg Tablet 7.5 Mg PO QTUTHSA Amiodarone Hcl 200 Mg Tablet 100 Mg PO DAILY Furosemide 20 Mg Tablet 10 Mg PO QMWF Metoprolol Succinate ( Xl ) (Metoprolol Succinate) 25 Mg Tab.er.24h 1 Tab PO QPM Calcitriol 0.25 Mcg Capsule 0.25 Mcg PO QM-W-F Warfarin Sodium 5 Mg Tablet 5 Mg PO QMWF Loratadine 10 Mg Tablet 10 Mg PO QHS Tamsulosin Hcl 0.4 Mg Cap.er.24h 0.4 Mg PO QHS Atorvastatin Calcium 10 Mg Tablet 10 Mg PO HS Duoneb 0.5-3(2.5) Mg/3 Ml (Albuterol/Ipratropium) 3 Ml Ampul.neb 3 Ml IH TID PRN Flonase (Fluticasone Propionate) 16 Gm [place].susp 2 [place] NS BID Vitals/I & O Vital Sign - Last 24 Hours 02/13/18 02/13/18 02/13/18 02/13/18 15:00 15:37 18:30 19:00 Temp 96.8 97.7 96.8 97.7 Pulse 69 69 72 Resp 20 18 B/P (MAP) 166/76 (106) 134/86 149/83 (105) Pulse Ox 96 96 O2 Delivery Room Air Nasal Cannula Nasal Cannula O2 Flow Rate 4.0 4.0 02/13/18 02/13/18 02/13/18 02/13/18 19:40 19:42 23:00 23:27 Temp 98.6 98.6 Pulse 70 Resp 18 B/P (MAP) 136/55 (82) Pulse Ox 96 94 96 O2 Delivery Nasal Cannula Nasal Cannula Nasal Cannula Nasal Cannula O2 Flow Rate 4.0 4.0 4.0 4.0 02/14/18 02/14/18 02/14/18 02/14/18 03:00 07:00 07:48 08:00 Temp 98.1 98.1 98.1 98.1 Pulse 68 70 Resp 18 20 B/P (MAP) 150/49 (82) 138/60 (86) Pulse Ox 97 96 97 O2 Delivery Nasal Cannula Nasal Cannula Nasal Cannula Nasal Cannula O2 Flow Rate 4.0 4.0 4.0 4.0 02/14/18 02/14/18 02/14/18 08:24 11:00 13:15 Temp 97.7 97.7 Pulse 68 69 Resp 20 B/P (MAP) 150/49 152/69 (96) Pulse Ox 96 O2 Delivery Nasal Cannula Nasal Cannula O2 Flow Rate 4.0 4.0 Intake and Output 02/13/18 02/13/18 02/14/18 15:00 23:00 07:00 Intake Total 480 ml 960 ml 720 ml Balance 480 ml 960 ml 720 ml BORIS WASSERMAN MD Feb 14, 2018 13:35
[2018-02-14 15:00] VITALS: BP 140/61
--- NOTE | 2018-02-14 15:06 | PDOC ---
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 Supportive care talked to swallow eval and pt and , would like to find something honey thickened pt may wanna try add PPN dc stool softner labs tmr Thanks for consulting us, we'll follow along with you FULL CODE off sitter History of Present Illness History of Present Illness ROS: no fever, chills, sob or chest pain mental much better no sitter not eating for 3 ds, since on dysphagia 2 diet with silent aspiration and pt refuse to eat since he cannot drink liquid i talked to SWAllow eval, pt has silent aspiration, not safe with liquid no BM x10ds, then had diarrhea yesterday with stool softner Vitals Vitals Vital Signs Date Time Temp Pulse Resp B/P (MAP) Pulse Ox O2 Delivery O2 Flow Rate FiO2 02/14/18 13:15 Nasal Cannula 4.0 02/14/18 11:00 97.7 69 20 152/69 (96) 96 97.7 Physical Exam General: Alert, Oriented X3, Cooperative, No acute distress Heart: Regular rate, Normal S1, Normal S2, No murmurs Lungs: Clear Abdomen: Soft, No tenderness Extremities: No clubbing, No cyanosis Skin: No breakdown, No significant lesion, Other (postop wound, sutures looking good, no tenderness around that site) Labs LABS Laboratory Tests Test 02/14/18 04:45 02/14/18 09:30 White Blood Count 17.5 x10^3/uL (4.0-11.0) Red Blood Count 2.80 x10^6/uL (4.30-5.70) Hemoglobin 9.0 g/dL (13.0-17.5) Hematocrit 27.4 % (39.0-53.0) Mean Corpuscular Volume 98 fL (79-100) Mean Corpuscular Hemoglobin 32 pg (25-35) Mean Corpuscular Hemoglobin Concent 33 g/dL (31-37) Red Cell Distribution Width 15.0 % (11.5-14.5) Platelet Count 144 x10^3/uL (140-400) Neutrophils (%) (Auto) 87 % (31-73) Lymphocytes (%) (Auto) 5 % (24-48) Monocytes (%) (Auto) 8 % (0-9) Eosinophils (%) (Auto) 1 % (0-3) Basophils (%) (Auto) 0 % (0-3) Neutrophils # (Auto) 15.2 x10^3uL (1.8-7.7) Lymphocytes # (Auto) 0.8 x10^3/uL (1.0-4.8) Monocytes # (Auto) 1.3 x10^3/uL (0.0-1.1) Eosinophils # (Auto) 0.1 x10^3/uL (0.0-0.7) Basophils # (Auto) 0.1 x10^3/uL (0.0-0.2) Segmented Neutrophils % 91 % (35-66) Lymphocytes % 5 % (24-48) Monocytes % 1 % (0-10) Eosinophils % 1 % (0-5) Metamyelocytes % 2 % (0-0) Platelet Estimate Adequate (ADEQUATE) Sodium Level 147 mmol/L (136-145) Potassium Level 4.1 mmol/L (3.5-5.1) Chloride Level 114 mmol/L (98-107) Carbon Dioxide Level 30 mmol/L (21-32) Anion Gap 3 (6-14) Blood Urea Nitrogen 48 mg/dL (8-26) Creatinine 1.6 mg/dL (0.7-1.3) Estimated GFR (Cockcroft-Gault) 42.2 Glucose Level 135 mg/dL (70-99) Calcium Level 10.1 mg/dL (8.5-10.1) Phosphorus Level 2.7 mg/dL (2.6-4.7) Albumin 2.1 g/dL (3.4-5.0) Urine Collection Type Unknown Urine Color [place] Urine Clarity Clear Urine pH 5.0 Urine Specific [place] 1.020 Urine Protein Negative mg/dL (NEG-TRACE) Urine Glucose (UA) Negative mg/dL (NEG) Urine Ketones (Stick) Negative mg/dL (NEG) Urine Blood Negative (NEG) Urine Nitrite Negative (NEG) Urine Bilirubin Negative (NEG) Urine Urobilinogen Dipstick 0.2 mg/dL (0.2 mg/dL) Urine Leukocyte Esterase Small (NEG) Urine RBC 0 /HPF (0-2) Urine WBC 5-10 /HPF (0-4) Urine Bacteria 0 /HPF (0-FEW) Comment Review of Relevant I have reviewed the following items aron (where applicable) has been applied. Labs Laboratory Tests Test 02/13/18 05:25 02/14/18 04:45 02/14/18 09:30 Sodium Level 146 mmol/L (136-145) 147 mmol/L (136-145) Potassium Level 4.1 mmol/L (3.5-5.1) 4.1 mmol/L (3.5-5.1) Chloride Level 113 mmol/L (98-107) 114 mmol/L (98-107) Carbon Dioxide Level 28 mmol/L (21-32) 30 mmol/L (21-32) Anion Gap 5 (6-14) 3 (6-14) Blood Urea Nitrogen 54 mg/dL (8-26) 48 mg/dL (8-26) Creatinine 1.7 mg/dL (0.7-1.3) 1.6 mg/dL (0.7-1.3) Estimated GFR (Cockcroft-Gault) 39.4 42.2 Glucose Level 113 mg/dL (70-99) 135 mg/dL (70-99) Calcium Level 10.3 mg/dL (8.5-10.1) 10.1 mg/dL (8.5-10.1) Phosphorus Level 2.9 mg/dL (2.6-4.7) 2.7 mg/dL (2.6-4.7) Albumin 1.9 g/dL (3.4-5.0) 2.1 g/dL (3.4-5.0) White Blood Count 17.5 x10^3/uL (4.0-11.0) Red Blood Count 2.80 x10^6/uL (4.30-5.70) Hemoglobin 9.0 g/dL (13.0-17.5) Hematocrit 27.4 % (39.0-53.0) Mean Corpuscular Volume 98 fL (79-100) Mean Corpuscular Hemoglobin 32 pg (25-35) Mean Corpuscular Hemoglobin Concent 33 g/dL (31-37) Red Cell Distribution Width 15.0 % (11.5-14.5) Platelet Count 144 x10^3/uL (140-400) Neutrophils (%) (Auto) 87 % (31-73) Lymphocytes (%) (Auto) 5 % (24-48) Monocytes (%) (Auto) 8 % (0-9) Eosinophils (%) (Auto) 1 % (0-3) Basophils (%) (Auto) 0 % (0-3) Neutrophils # (Auto) 15.2 x10^3uL (1.8-7.7) Lymphocytes # (Auto) 0.8 x10^3/uL (1.0-4.8) Monocytes # (Auto) 1.3 x10^3/uL (0.0-1.1) Eosinophils # (Auto) 0.1 x10^3/uL (0.0-0.7) Basophils # (Auto) 0.1 x10^3/uL (0.0-0.2) Segmented Neutrophils % 91 % (35-66) Lymphocytes % 5 % (24-48) Monocytes % 1 % (0-10) Eosinophils % 1 % (0-5) Metamyelocytes % 2 % (0-0) Platelet Estimate Adequate (ADEQUATE) Urine Collection Type Unknown Urine Color [place] Urine Clarity Clear Urine pH 5.0 Urine Specific [place] 1.020 Urine Protein Negative mg/dL (NEG-TRACE) Urine Glucose (UA) Negative mg/dL (NEG) Urine Ketones (Stick) Negative mg/dL (NEG) Urine Blood Negative (NEG) Urine Nitrite Negative (NEG) Urine Bilirubin Negative (NEG) Urine Urobilinogen Dipstick 0.2 mg/dL (0.2 mg/dL) Urine Leukocyte Esterase Small (NEG) Urine RBC 0 /HPF (0-2) Urine WBC 5-10 /HPF (0-4) Urine Bacteria 0 /HPF (0-FEW) Laboratory Tests Test 02/14/18 04:45 02/14/18 09:30 White Blood Count 17.5 x10^3/uL (4.0-11.0) Red Blood Count 2.80 x10^6/uL (4.30-5.70) Hemoglobin 9.0 g/dL (13.0-17.5) Hematocrit 27.4 % (39.0-53.0) Mean Corpuscular Volume 98 fL (79-100) Mean Corpuscular Hemoglobin 32 pg (25-35) Mean Corpuscular Hemoglobin Concent 33 g/dL (31-37) Red Cell Distribution Width 15.0 % (11.5-14.5) Platelet Count 144 x10^3/uL (140-400) Neutrophils (%) (Auto) 87 % (31-73) Lymphocytes (%) (Auto) 5 % (24-48) Monocytes (%) (Auto) 8 % (0-9) Eosinophils (%) (Auto) 1 % (0-3) Basophils (%) (Auto) 0 % (0-3) Neutrophils # (Auto) 15.2 x10^3uL (1.8-7.7) Lymphocytes # (Auto) 0.8 x10^3/uL (1.0-4.8) Monocytes # (Auto) 1.3 x10^3/uL (0.0-1.1) Eosinophils # (Auto) 0.1 x10^3/uL (0.0-0.7) Basophils # (Auto) 0.1 x10^3/uL (0.0-0.2) Segmented Neutrophils % 91 % (35-66) Lymphocytes % 5 % (24-48) Monocytes % 1 % (0-10) Eosinophils % 1 % (0-5) Metamyelocytes % 2 % (0-0) Platelet Estimate Adequate (ADEQUATE) Sodium Level 147 mmol/L (136-145) Potassium Level 4.1 mmol/L (3.5-5.1) Chloride Level 114 mmol/L (98-107) Carbon Dioxide Level 30 mmol/L (21-32) Anion Gap 3 (6-14) Blood Urea Nitrogen 48 mg/dL (8-26) Creatinine 1.6 mg/dL (0.7-1.3) Estimated GFR (Cockcroft-Gault) 42.2 Glucose Level 135 mg/dL (70-99) Calcium Level 10.1 mg/dL (8.5-10.1) Phosphorus Level 2.7 mg/dL (2.6-4.7) Albumin 2.1 g/dL (3.4-5.0) Urine Collection Type Unknown Urine Color [place] Urine Clarity Clear Urine pH 5.0 Urine Specific [place] 1.020 Urine Protein Negative mg/dL (NEG-TRACE) Urine Glucose (UA) Negative mg/dL (NEG) Urine Ketones (Stick) Negative mg/dL (NEG) Urine Blood Negative (NEG) Urine Nitrite Negative (NEG) Urine Bilirubin Negative (NEG) Urine Urobilinogen Dipstick 0.2 mg/dL (0.2 mg/dL) Urine Leukocyte Esterase Small (NEG) Urine RBC 0 /HPF (0-2) Urine WBC 5-10 /HPF (0-4) Urine Bacteria 0 /HPF (0-FEW) Microbiology 02/04/18 Blood Culture - Final, Complete NO GROWTH AFTER 5 DAYS 02/08/18 - Final, Complete 02/08/18 - Final, Complete 02/08/18 - Final, Complete 02/08/18 - Final, Complete 02/08/18 Gram Stain Evaluation - Final, Complete 02/08/18 Sputum Culture - Final, Complete 02/08/18 Sputum Result 1 - Final, Complete 02/08/18 Sputum Result 2 - Final, Complete 02/08/18 Antimicrobic Susceptibility - Final, Complete Medications Current Medications Ondansetron HCl (Zofran) 4 mg PRN Q6HRS PRN IV NAUSEA/VOMITING Last administered on 02/04/18at 04:08; Start 02/03/18 at 07:00; Stop 02/04/18 at 06:59; Status DC Fentanyl Citrate (Fentanyl 2ml Vial) 25 mcg PRN Q5MIN PRN IV MILD PAIN Last administered on 02/03/18at 12:13; Start 02/03/18 at 07:00; Stop 02/04/18 at 06:59; Status DC Fentanyl Citrate (Fentanyl 2ml Vial) 50 mcg PRN Q5MIN PRN IV MODERATE TO SEVERE PAIN; Start 02/03/18 at 07:00; Stop 02/04/18 at 06:59; Status DC Morphine Sulfate (Morphine Sulfate) 1 mg PRN Q10MIN PRN IV SEVERE PAIN Last administered on 02/03/18at 11:42; Start 02/03/18 at 07:00; Stop 02/04/18 at 06:59; Status DC Ringer's Solution 1,000 ml @ 30 mls/hr Q24H IV Last administered on 02/03/18at 09:13; Start 02/03/18 at 07:00; Stop 02/03/18 at 18:59; Status DC Lidocaine HCl (Xylocaine-Mpf 1% Vial) 2 ml PRN 1X PRN ID PRIOR TO IV START; Start 02/03/18 at 07:00; Stop 02/04/18 at 06:59; Status DC Prochlorperazine Edisylate (Compazine) 5 mg PACU PRN PRN IV NAUSEA, MRX1; Start 02/03/18 at 07:00; Stop 02/04/18 at 06:59; Status DC Cefazolin Sodium/ Dextrose 50 ml @ 100 mls/hr 1X PREOP PRN IV PRIOR TO SURGERY Last administered on 02/03/18at 09:35; Start 02/03/18 at 08:00; Stop at 14:44; Status DC Fentanyl Citrate (Fentanyl 2ml Vial) 100 mcg STK-MED ONCE .ROUTE ; Start at 08:09; Stop 02/03/18 at 08:10; Status DC Rocuronium [place] (Zemuron) 50 mg STK-MED ONCE .ROUTE ; Start 02/03/18 at 08:09 ; Stop 02/03/18 at 08:10; Status DC Desflurane (Suprane) 60 ml STK-MED ONCE IH ; Start 02/03/18 at 08:09; Stop at 08:10; Status DC Dexamethasone Sodium Phosphate (Decadron) 20 mg STK-MED ONCE .ROUTE ; Start 02/03 at 08:09; Stop 02/03/18 at 08:10; Status DC Propofol 20 ml @ As Directed STK-MED ONCE IV ; Start 02/03/18 at 08:09; Stop 02/03 at 08:10; Status DC Lidocaine HCl (Lidocaine Pf 2% Vial) 5 ml STK-MED ONCE .ROUTE ; Start 02/03/18 at 08:09; Stop 02/03/18 at 08:10; Status DC Ondansetron HCl (Zofran) 4 mg STK-MED ONCE .ROUTE ; Start 02/03/18 at 08:09; Stop 02/03/18 at 08:10; Status DC Ketorolac Tromethamine (Toradol For Or Only) 30 mg STK-MED ONCE INJ ; Start 02/03 at 08:09; Stop 02/03/18 at 08:10; Status DC Ephedrine Sulfate (ePHEDrine PF IN SALINE SYRINGE) 50 mg STK-MED ONCE IV ; Start 02/03/18 at 08:15; Stop 02/03/18 at 08:16; Status DC Bupivacaine HCl/ Epinephrine Bitart (Marcaine-Epi 0.5%-1:[id number]) 50 ml STK-MED ONCE .ROUTE Last administered on 02/03/18at 09:49; Start 02/03/18 at 07:56; Stop 02/03/18 at 08:57; Status DC Iohexol (Omnipaque 300 Mg/ml) 100 ml STK-MED ONCE .ROUTE Last administered on at 09:49; Start 02/03/18 at 07:56; Stop 02/03/18 at 08:58; Status DC Phenylephrine HCl (PHENYLEPHRINE in 0.9% NACL PF) 1 mg STK-MED ONCE IV ; Start 02/03/18 at 09:24; Stop 02/03/18 at 09:25; Status DC Glycopyrrolate (Robinul) 1 mg STK-MED ONCE .ROUTE ; Start 02/03/18 at 09:55; Stop 02/03/18 at 09:56; Status DC Neostigmine Methylsulfate (Neostigmine Methylsulfate) 5 mg STK-MED ONCE .ROUTE ; Start 02/03/18 at 09:55; Stop 02/03/18 at 09:56; Status DC Albuterol Sulfate (Ventolin Neb Soln) 2.5 mg 1X PACU PRN NEB SHORTNESS OF BREATH Last administered on 02/03/18at 10:53; Start 02/03/18 at 11:00; Stop at 17:39; Status DC Diphenhydramine HCl (Benadryl) 25 mg PRN Q6HRS PRN PO ITCHING; Start 02/03/18 at 11:00 Diphenhydramine HCl (Benadryl) 25 mg PRN Q6HRS PRN IV ITCHING Last administered on 02/09/18at 22:30; Start 02/03/18 at 11:00 Enoxaparin Sodium (Lovenox 40mg Syringe) 40 mg Q24H SQ ; Start 02/03/18 at 11:00 ; Status Cancel Sodium Chloride (Normal Saline Flush) 3 ml QSHIFT PRN IV AFTER MEDS AND BLOOD DRAWS; Start 02/03/18 at 11:00 Potassium Chloride/Sodium Chloride 1,000 ml @ 75 mls/hr [id number] IV Last administered on 02/03/18at 23:55; Start 02/03/18 at 10:46; Stop 02/04/18 at 11:37; Status DC Dextrose (Dextrose 50%-Water Syringe) 12.5 gm PRN Q15MIN PRN IV SEE COMMENTS; Start 02/03/18 at 11:00 Oxycodone/ Acetaminophen (Percocet 5/325) 1 tab PRN Q4HRS PRN PO MILD PAIN, 1ST CHOICE Last administered on 02/12/18at 02:12; Start 02/03/18 at 11:00; Stop at 08:42; Status DC Oxycodone/ Acetaminophen (Percocet 5/325) 2 tab PRN Q4HRS PRN PO MODERATE PAIN , SEVERE PAIN; Start 02/03/18 at 11:00; Stop 02/12/18 at 08:42; Status DC Morphine Sulfate (Morphine Sulfate) 5 mg PRN Q3HRS PRN IV MODERATE TO SEVERE PAIN Last administered on 02/10/18at 17:55; Start 02/03/18 at 11:15 Docusate Sodium (Colace) 100 mg BID PO Last administered on 02/13/18at 21:21; Start 02/03/18 at 11:00; Stop 02/14/18 at 12:30; Status DC Ondansetron HCl (Zofran) 4 mg PRN Q6HRS PRN IV NAUESA, 1ST CHOICE Last administered on 02/12/18at 02:11; Start 02/03/18 at 11:00 Enoxaparin Sodium (Lovenox 40mg Syringe) 40 mg Q24H SQ ; Start 02/04/18 at 09:00 ; Stop 02/04/18 at 09:00; Status DC Hydralazine HCl (Apresoline Inj) 10 mg 1X PACU PRN IVP ELEVATED BP, SEE COMMENTS; Start 02/03/18 at 12:15; Stop 02/03/18 at 20:00; Status DC Oxycodone/ Acetaminophen (Percocet 5/325) 1 tab 1X PACU PRN PO PAIN Last administered on 02/03/18at 12:20; Start 02/03/18 at 12:15; Stop 02/03/18 at 20:00; Status DC Albuterol Sulfate (Ventolin Neb Soln) 2.5 mg PRN Q2HR PRN NEB [id number] Last administered on 02/13/18at 01:47; Start 02/03/18 at 15:00 Albuterol/ Ipratropium (Duoneb) 3 ml RTQID NEB Last administered on 02/12/18at 20:00; Start 02/03/18 at 16:00; Stop 02/13/18 at 01:32; Status DC Ondansetron HCl (Zofran) 4 mg PRN Q6HRS PRN IV NAUSEA/VOMITING; Start 02/04/18 at 07:00; Stop 02/05/18 at 06:59; Status DC Fentanyl Citrate (Fentanyl 2ml Vial) 25 mcg PRN Q5MIN PRN IV MILD PAIN; Start 02/04/18 at 07:00; Stop 02/05/18 at 06:59; Status DC Fentanyl Citrate (Fentanyl 2ml Vial) 50 mcg PRN Q5MIN PRN IV MODERATE TO SEVERE PAIN; Start 02/04/18 at 07:00; Stop 02/05/18 at 06:59; Status DC Morphine Sulfate (Morphine Sulfate) 1 mg PRN Q10MIN PRN IV SEVERE PAIN; Start 02/04/18 at 07:00; Stop 02/05/18 at 06:59; Status DC Ringer's Solution 1,000 ml @ 30 mls/hr Q24H IV ; Start 02/04/18 at 07:00; Stop 02/04/18 at 18:59; Status DC Lidocaine HCl (Xylocaine-Mpf 1% Vial) 2 ml PRN 1X PRN ID IV START; Start at 07:00; Stop 02/05/18 at 06:59; Status DC Prochlorperazine Edisylate (Compazine) 5 mg PACU PRN PRN IV NAUSEA, MRX1; Start 02/04/18 at 07:00; Stop 02/05/18 at 06:59; Status DC Furosemide (Lasix) 40 mg 1X ONCE IVP Last administered on 02/04/18at 12:47; Start 02/04/18 at 11:45; Stop 02/04/18 at 11:46; Status DC Sodium Chloride 1,000 ml @ 100 mls/hr Q10H IV Last administered on 02/05/18at 21 :05; Start 02/04/18 at 12:00; Stop 02/06/18 at 13:12; Status DC Hydralazine HCl (Apresoline Inj) 10 mg PRN Q4HRS PRN IVP ELEVATED BP, SEE COMMENTS Last administered on 02/10/18at 03:12; Start 02/04/18 at 12:15 Iohexol (Omnipaque 300 Mg/ml) 100 ml STK-MED ONCE .ROUTE ; Start 02/04/18 at 12: 11; Stop 02/04/18 at 12:12; Status DC Cefazolin Sodium/ Dextrose (Ancef 2gm Premix) 2 gm STK-MED ONCE IV ; Start at 07:00; Stop 02/04/18 at 12:31; Status DC Propofol 0 ml @ As Directed STK-MED ONCE IV ; Start 02/04/18 at 13:50; Stop at 13:51; Status DC Lidocaine HCl (Lidocaine Pf 2% Vial) 5 ml STK-MED ONCE .ROUTE ; Start 02/04/18 at 13:50; Stop 02/04/18 at 13:51; Status DC Famotidine (Pepcid Vial) 20 mg STK-MED ONCE .ROUTE ; Start 02/04/18 at 13:50; Stop 02/04/18 at 13:51; Status DC Dexamethasone Sodium Phosphate (Decadron) 20 mg STK-MED ONCE .ROUTE ; Start 02/04 at 13:50; Stop 02/04/18 at 13:52; Status DC Ondansetron HCl (Zofran) 4 mg STK-MED ONCE .ROUTE ; Start 02/04/18 at 13:50; Stop 02/04/18 at 13:52; Status DC Lorazepam (Ativan) 0.5 mg PRN Q8HRS PRN PO ANXIETY / AGITATION; Start 02/04/18 at 15:15 Furosemide (Lasix) 40 mg 1X ONCE IVP Last administered on 02/04/18at 17:00; Start 02/04/18 at 16:45; Stop 02/04/18 at 16:46; Status DC Ciprofloxacin/ Dextrose 200 ml @ 200 mls/hr Q12HR IV Last administered on at 08:10; Start 02/04/18 at 17:30; Stop 02/06/18 at 14:49; Status DC Metronidazole 100 ml @ 100 mls/hr Q12HR IV Last administered on 02/09/18at 20:52 ; Start 02/04/18 at 17:30; Stop 02/10/18 at 13:43; Status DC Metoclopramide HCl (Reglan Vial) 5 mg PRN Q6HRS PRN IV NAUSEA/VOMITING 2nd CHOICE Last administered on 02/05/18at 13:05; Start 02/04/18 at 17:30; Stop at 15:13; Status DC Lorazepam (Ativan) 0.5 mg PRN Q6HRS PRN IV ANXIETY / AGITATION 1ST CHOICE Last administered on 02/13/18at 09:56; Start 02/04/18 at 20:45 Acetaminophen (Tylenol) 500 mg PRN Q4HRS PRN PO FEVER; Start 02/04/18 at 22:15 Furosemide (Lasix) 40 mg 1X ONCE IVP Last administered on 02/05/18at 01:15; Start 02/05/18 at 01:30; Stop 02/05/18 at 01:31; Status DC Ringer's Solution 1,000 ml @ 75 mls/hr [id number] IV Last administered on at 09:52; Start 02/05/18 at 10:00; Stop 02/06/18 at 13:12; Status DC Iohexol (Omnipaque 300 Mg/ml) 100 ml STK-MED ONCE .ROUTE ; Start 02/05/18 at 10: 10; Stop 02/05/18 at 10:11; Status DC Fentanyl Citrate (Fentanyl 2ml Vial) 100 mcg STK-MED ONCE .ROUTE ; Start at 10:33; Stop 02/05/18 at 10:34; Status DC Ondansetron HCl (Zofran) 4 mg STK-MED ONCE .ROUTE ; Start 02/05/18 at 11:01; Stop 02/05/18 at 11:03; Status DC Iohexol (Omnipaque 300 Mg/ml) 100 ml STK-MED ONCE IV Last administered on at 11:27; Start 02/05/18 at 11:27; Stop 02/05/18 at 11:29; Status DC Haloperidol Lactate (Haldol Inj) 5 mg PRN Q6HRS PRN IVP AGITATION 2ND CHOICE Last administered on 02/10/18at 09:00; Start 02/05/18 at 12:30 Ciprofloxacin/ Dextrose 200 ml @ 200 mls/hr Q24H IV Last administered on at 08:25; Start 02/07/18 at 08:00; Stop 02/12/18 at 09:45; Status DC Magnesium Sulfate 50 ml @ 25 mls/hr PRN DAILY PRN IV for Mag < 1.7 on am labs; Start 02/07/18 at 09:00 Darbepoetin Rob (Aranesp) 60 mcg [id number] SQ Last administered on 02/07/18at 21: 30; Start 02/07/18 at 21:00 Lactobacillus Rhamnosus (Culturelle) 1 cap BID PO Last administered on at 08:23; Start 02/08/18 at 21:00 Sodium Chloride 1,000 ml @ 125 mls/hr Q8H IV Last administered on 02/09/18at 04: 39; Start 02/08/18 at 10:00; Stop 02/09/18 at 10:23; Status DC Furosemide (Lasix) 40 mg 1X ONCE IVP Last administered on 02/08/18at 12:07; Start 02/08/18 at 11:30; Stop 02/08/18 at 11:31; Status DC Amino Acids/ Glycerin/ Electrolytes 1,000 ml @ 75 mls/hr [id number] IV Last administered on 02/10/18at 05:43; Start 02/08/18 at 12:00; Stop 02/11/18 at 12:42; Status DC Sodium Bicarbonate (Sodium Bicarb Adult 8.4% Syr) 50 meq 1X ONCE IV Last administered on 02/08/18at 12:08; Start 02/08/18 at 12:30; Stop 02/08/18 at 12:31; Status DC Albuterol/ Ipratropium (Duoneb) 3 ml STK-MED ONCE .ROUTE ; Start 02/08/18 at 19: 39; Stop 02/08/18 at 19:40; Status DC Neostigmine Methylsulfate (Neostigmine Methylsulfate) 5 mg STK-MED ONCE .ROUTE ; Start 02/06/18 at 12:00; Stop 02/09/18 at 06:52; Status DC Lidocaine HCl (Lidocaine HCl 2% Abboject) 100 mg STK-MED ONCE .ROUTE ; Start 02/06/18 at 12:00; Stop 02/09/18 at 06:52; Status DC Phenylephrine HCl (PHENYLEPHRINE in 0.9% NACL PF) 2 mg STK-MED ONCE IV ; Start 02/06/18 at 12:00; Stop 02/09/18 at 06:52; Status DC Propofol (Diprivan) 200 mg STK-MED ONCE IV ; Start 02/06/18 at 12:00; Stop at 06:52; Status DC Glycopyrrolate (Robinul) 1 mg STK-MED ONCE .ROUTE ; Start 02/06/18 at 12:00; Stop 02/09/18 at 06:52; Status DC Dexamethasone Sodium Phosphate (Decadron) 20 mg STK-MED ONCE .ROUTE ; Start 02/06 at 12:00; Stop 02/09/18 at 06:52; Status DC Metoprolol Tartrate (Lopressor Vial) 5 mg PRN Q6HRS PRN IVP TACHYCARDIA; Start 02/09/18 at 12:45 Quetiapine Fumarate (SEROquel) 50 mg QHS PO Last administered on 02/09/18at 20:53 ; Start 02/09/18 at 21:00; Stop 02/10/18 at 14:54; Status DC Metronidazole 100 ml @ 100 mls/hr Q12H IV Last administered on 02/11/18at 02:01 ; Start 02/10/18 at 14:00; Stop 02/11/18 at 12:42; Status DC Dextrose/Sodium Chloride 1,000 ml @ 75 mls/hr [id number] IV Last administered on 02/11/18at 03:35; Start 02/10/18 at 14:15; Stop 02/11/18 at 12:42; Status DC Quetiapine Fumarate (SEROquel) 50 mg BID PO Last administered on 02/11/18at 20:28 ; Start 02/10/18 at 15:00; Stop 02/12/18 at 08:42; Status DC Dextrose 1,000 ml @ 100 mls/hr Q10H IV Last administered on 02/12/18at 05:41; Start 02/11/18 at 10:45; Stop 02/12/18 at 08:42; Status DC Doxycycline Hyclate (Vibra-Tab) 100 mg BID PO Last administered on 02/12/18at 08 :20; Start 02/11/18 at 11:30; Stop 02/12/18 at 16:05; Status DC Metronidazole (Flagyl) 500 mg Q12HR PO Last administered on 02/12/18 08:21; Start 02/11/18 at 14:00; Stop 02/12/18 at 16:05; Status DC Amiodarone HCl (Cordarone) 100 mg DAILY PO Last administered on 02/14/18 08:24 ; Start 02/11/18 at 14:00 Atorvastatin Calcium (Lipitor) 10 mg HS PO Last administered on 02/13/18at 21:21 ; Start 02/11/18 at 21:00 Metoprolol Succinate (Toprol Xl) 25 mg QPM PO Last administered on 02/13/18 18 :30; Start 02/11/18 at 18:00 Ciprofloxacin (Cipro) 500 mg BID PO ; Start 02/12/18 at 21:00; Stop 02/12/18 at 21:00; Status DC Barium Sulfate (Varibar Thin Liquid Apple) 148 gm 1X ONCE PO Last administered on 02/12/18 13:30; Start 02/12/18 at 13:30; Stop 02/12/18 at 13:31 ; Status DC Amoxicillin/ Clavulanate Potassium (Augmentin 875/ 125mg) 1 tab BID PO Last administered on 02/14/18 08:23; Start 02/12/18 at 17:00 Polyethylene Glycol (miraLAX PACKET) 17 gm DAILY PO Last administered on 17:48; Start 02/12/18 at 18:00; Stop 02/12/18 at 18:00; Status DC Polyethylene Glycol (miraLAX PACKET) 17 gm PRN DAILY PRN PO CONSTIPATION Last administered on 02/13/18at 09:56; Start 02/12/18 at 18:00; Stop 02/13/18 at 15:21 ; Status DC Albuterol/ Ipratropium (Duoneb) 3 ml PRN Q2HRS PRN NEB SHORTNESS OF BREATH; Start 02/13/18 at 01:15; Status UNV Albuterol/ Ipratropium (Duoneb) 3 ml Q4HRS NEB Last administered on 02/14/18at 13:15; Start 02/13/18 at 04:00 Senna/Docusate Sodium (Senna Plus) 1 tab BID PO Last administered on 02/13/18at 21:22; Start 02/13/18 at 13:00; Stop 02/14/18 at 12:30; Status DC Docusate Sodium (Colace) 100 mg BID PO ; Start 02/13/18 at 13:00; Status Cancel Magnesium Hydroxide (Milk Of Magnesia) 2,400 mg BID PO Last administered on 05/23at 21:21; Start 02/13/18 at 13:00; Stop 02/14/18 at 12:30; Status DC Lactulose (Lactulose) 20 gm PRN Q12HR PRN PO CONSTIPATION; Start 02/13/18 at 12 :30 Bisacodyl (Dulcolax Supp) 10 mg PRN DAILY PRN NC CONSTIPATION; Start 02/13/18 at 12:30 Amino Acids/ Glycerin/ Electrolytes 1,000 ml @ 80 mls/hr [id number] IV Last administered on 02/13/18at 13:36; Start 02/13/18 at 12:30 Polyethylene Glycol (miraLAX PACKET) 17 gm BID PO Last administered on at 21:21; Start 02/13/18 at 16:00; Stop 02/14/18 at 12:30; Status DC Active Scripts Active Reported Ferrous Sulfate 325 Mg Tablet 1 Tab PO DAILY Super B Complex-Vitamin C (B Complex With Vitamin C) 1 Each Tablet 1 Each PO Warfarin Sodium 5 Mg Tablet 7.5 Mg PO QTUTHSA Amiodarone Hcl 200 Mg Tablet 100 Mg PO DAILY Furosemide 20 Mg Tablet 10 Mg PO QMWF Metoprolol Succinate ( Xl ) (Metoprolol Succinate) 25 Mg Tab.er.24h 1 Tab PO QPM Calcitriol 0.25 Mcg Capsule 0.25 Mcg PO QM-W-F Warfarin Sodium 5 Mg Tablet 5 Mg PO QMWF Loratadine 10 Mg Tablet 10 Mg PO QHS Tamsulosin Hcl 0.4 Mg Cap.er.24h 0.4 Mg PO QHS Atorvastatin Calcium 10 Mg Tablet 10 Mg PO HS Duoneb 0.5-3(2.5) Mg/3 Ml (Albuterol/Ipratropium) 3 Ml Ampul.neb 3 Ml IH TID PRN Flonase (Fluticasone Propionate) 16 Gm Ogden.susp 2 [place] NS BID Vitals/I & O Vital Sign - Last 24 Hours 02/13/18 02/13/18 02/13/18 02/13/18 15:37 18:30 19:00 19:40 Temp 97.7 97.7 Pulse 69 72 Resp 18 B/P (MAP) 134/86 149/83 (105) Pulse Ox 96 O2 Delivery Nasal Cannula Nasal Cannula Nasal Cannula O2 Flow Rate 4.0 4.0 4.0 02/13/18 02/13/18 02/13/18 02/14/18 19:42 23:00 23:27 03:00 Temp 98.6 98.1 98.6 98.1 Pulse 70 68 Resp 18 18 B/P (MAP) 136/55 (82) 150/49 (82) Pulse Ox 96 94 96 97 O2 Delivery Nasal Cannula Nasal Cannula Nasal Cannula Nasal Cannula O2 Flow Rate 4.0 4.0 4.0 4.0 02/14/18 02/14/18 02/14/18 02/14/18 07:00 07:48 08:00 08:24 Temp 98.1 98.1 Pulse 70 68 Resp 20 B/P (MAP) 138/60 (86) 150/49 Pulse Ox 96 97 O2 Delivery Nasal Cannula Nasal Cannula Nasal Cannula O2 Flow Rate 4.0 4.0 4.0 02/14/18 02/14/18 11:00 13:15 Temp 97.7 97.7 Pulse 69 Resp 20 B/P (MAP) 152/69 (96) Pulse Ox 96 O2 Delivery Nasal Cannula Nasal Cannula O2 Flow Rate 4.0 4.0 Intake and Output 02/13/18 02/13/18 02/14/18 15:00 23:00 07:00 Intake Total 480 ml 960 ml 720 ml Balance 480 ml 960 ml 720 ml MANUEL DE LUNA MD Feb 14, 2018 15:06
[2018-02-14] MEDS: METOPROLOL SUCC 24HR ER 25 MG TAB.ER.24H. PO SCH (18:00)
[2018-02-14 19:00] VITALS: BP 185/89
[2018-02-14] MEDS: LORazepam 0.5 MG TABLET PO PRN (21:09)
[2018-02-14] MEDS: ATORVASTATIN CALCIUM 10 MG TABLET. PO SCH (21:09)
[2018-02-14] MEDS: TAMSULOSIN 0.4 MG CAP.ER.24H. PO SCH (21:09)
[2018-02-14] MEDS: DARBEPOETIN ALFA 60 MCG/0.3 ML DISP.SYRIN. SQ SCH (21:10)
[2018-02-14] MEDS: diphenhydrAMINE HCL 25 MG CAPSULE PO PRN (22:31)
[2018-02-14 23:00] VITALS: BP 157/76
[2018-02-15 03:00] VITALS: BP 145/75
[2018-02-15] MEDS: IPRATRPIUM/ALBUTEROL 0.5/2.5MG 3 ML NEBU. NEB SCH ×6 (04:00→19:25)
[2018-02-15 04:27] LABS: BASO # 0.1 x10^3/uL (0.0-0.2); BASO % 1 % (0-3); EOS # 0.1 x10^3/uL (0.0-0.7); EOS % 1 % (0-3); HEMATOCRIT 25.7 % (39.0-53.0); HEMOGLOBIN 8.4 g/dL (13.0-17.5); LYMPH # 0.9 x10^3/uL (1.0-4.8); LYMPH % 4 % (24-48); MEAN CORPUSCULAR HEMOGLOBIN 32 pg (25-35); MEAN CORPUSCULAR HGB CONC 33 g/dL (31-37); MEAN CORPUSCULAR VOLUME 98 fL (79-100); MONO # 1.3 x10^3/uL (0.0-1.1); MONO % 6 % (0-9); NEUT # 17.9 x10^3uL (1.8-7.7); NEUT % 88 % (31-73); PLATELET COUNT 141 x10^3/uL (140-400); RED BLOOD COUNT 2.64 x10^6/uL (4.30-5.70); RED CELL DISTRIBUTION WIDTH 15.1 % (11.5-14.5)
[2018-02-15 04:47] LABS: CREATININE 1.3 mg/dL (0.7-1.3); GFR 53.7; POTASSIUM 4.7 mmol/L (3.5-5.1)
[2018-02-15 07:00] VITALS: BP 145/66
[2018-02-15] MEDS ORDERED: FUROSEMIDE 20 MG TABLET PO SCH (09:00)
--- NOTE | 2018-02-15 09:04 | PDOC ---
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 02/15/18 0904: SURGICAL PROGRESS NOTE Subjective Tolerating diet work with speech denies abd pain Vital Signs Vital Signs Date Time Temp Pulse Resp B/P (MAP) Pulse Ox O2 Delivery O2 Flow Rate FiO2 02/15/18 07:35 94 Nasal Cannula 2.0 02/15/18 07:00 98.4 76 20 145/66 (92) 98.4 I&O Intake and Output 02/15/18 07:00 Intake Total 3080 ml Output Total 1250 ml Balance 1830 ml Intake Oral 2080 ml IV Total 1000 ml Output Urine Total 1250 ml # Bowel Movements 7 General: Alert, Oriented X3, Cooperative, No acute distress Abdomen: Soft, No tenderness Labs Laboratory Tests Test 02/14/18 04:45 02/14/18 09:30 02/15/18 03:40 02/15/18 03:45 White Blood Count 17.5 x10^3/uL (4.0-11.0) 20.3 x10^3/uL (4.0-11.0) Red Blood Count 2.80 x10^6/uL (4.30-5.70) 2.64 x10^6/uL (4.30-5.70) Hemoglobin 9.0 g/dL (13.0-17.5) 8.4 g/dL (13.0-17.5) Hematocrit 27.4 % (39.0-53.0) 25.7 % (39.0-53.0) Mean Corpuscular Volume 98 fL (79-100) 98 fL (79-100) Mean Corpuscular Hemoglobin 32 pg (25-35) 32 pg (25-35) Mean Corpuscular Hemoglobin Concent 33 g/dL (31-37) 33 g/dL (31-37) Red Cell Distribution Width 15.0 % (11.5-14.5) 15.1 % (11.5-14.5) Platelet Count 144 x10^3/uL (140-400) 141 x10^3/uL (140-400) Neutrophils (%) (Auto) 87 % (31-73) 88 % (31-73) Lymphocytes (%) (Auto) 5 % (24-48) 4 % (24-48) Monocytes (%) (Auto) 8 % (0-9) 6 % (0-9) Eosinophils (%) (Auto) 1 % (0-3) 1 % (0-3) Basophils (%) (Auto) 0 % (0-3) 1 % (0-3) Neutrophils # (Auto) 15.2 x10^3uL (1.8-7.7) 17.9 x10^3uL (1.8-7.7) Lymphocytes # (Auto) 0.8 x10^3/uL (1.0-4.8) 0.9 x10^3/uL (1.0-4.8) Monocytes # (Auto) 1.3 x10^3/uL (0.0-1.1) 1.3 x10^3/uL (0.0-1.1) Eosinophils # (Auto) 0.1 x10^3/uL (0.0-0.7) 0.1 x10^3/uL (0.0-0.7) Basophils # (Auto) 0.1 x10^3/uL (0.0-0.2) 0.1 x10^3/uL (0.0-0.2) Segmented Neutrophils % 91 % (35-66) Lymphocytes % 5 % (24-48) Monocytes % 1 % (0-10) Eosinophils % 1 % (0-5) Metamyelocytes % 2 % (0-0) Platelet Estimate Adequate (ADEQUATE) Sodium Level 147 mmol/L (136-145) 144 mmol/L (136-145) Potassium Level 4.1 mmol/L (3.5-5.1) 4.7 mmol/L (3.5-5.1) Chloride Level 114 mmol/L (98-107) 113 mmol/L (98-107) Carbon Dioxide Level 30 mmol/L (21-32) 29 mmol/L (21-32) Anion Gap 3 (6-14) 2 (6-14) Blood Urea Nitrogen 48 mg/dL (8-26) 41 mg/dL (8-26) Creatinine 1.6 mg/dL (0.7-1.3) 1.3 mg/dL (0.7-1.3) Estimated GFR (Cockcroft-Gault) 42.2 53.7 Glucose Level 135 mg/dL (70-99) 121 mg/dL (70-99) Calcium Level 10.1 mg/dL (8.5-10.1) 10.0 mg/dL (8.5-10.1) Phosphorus Level 2.7 mg/dL (2.6-4.7) Albumin 2.1 g/dL (3.4-5.0) Urine Collection Type Unknown Urine Color [place] Urine Clarity Clear Urine pH 5.0 Urine Specific [place] 1.020 Urine Protein Negative mg/dL (NEG-TRACE) Urine Glucose (UA) Negative mg/dL (NEG) Urine Ketones (Stick) Negative mg/dL (NEG) Urine Blood Negative (NEG) Urine Nitrite Negative (NEG) Urine Bilirubin Negative (NEG) Urine Urobilinogen Dipstick 0.2 mg/dL (0.2 mg/dL) Urine Leukocyte Esterase Small (NEG) Urine RBC 0 /HPF (0-2) Urine WBC 5-10 /HPF (0-4) Urine Bacteria 0 /HPF (0-FEW) Laboratory Tests Test 02/14/18 09:30 02/15/18 03:40 02/15/18 03:45 Urine Collection Type Unknown Urine Color [place] Urine Clarity Clear Urine pH 5.0 Urine Specific [place] 1.020 Urine Protein Negative mg/dL (NEG-TRACE) Urine Glucose (UA) Negative mg/dL (NEG) Urine Ketones (Stick) Negative mg/dL (NEG) Urine Blood Negative (NEG) Urine Nitrite Negative (NEG) Urine Bilirubin Negative (NEG) Urine Urobilinogen Dipstick 0.2 mg/dL (0.2 mg/dL) Urine Leukocyte Esterase Small (NEG) Urine RBC 0 /HPF (0-2) Urine WBC 5-10 /HPF (0-4) Urine Bacteria 0 /HPF (0-FEW) Sodium Level 144 mmol/L (136-145) Potassium Level 4.7 mmol/L (3.5-5.1) Chloride Level 113 mmol/L (98-107) Carbon Dioxide Level 29 mmol/L (21-32) Anion Gap 2 (6-14) Blood Urea Nitrogen 41 mg/dL (8-26) Creatinine 1.3 mg/dL (0.7-1.3) Estimated GFR (Cockcroft-Gault) 53.7 Glucose Level 121 mg/dL (70-99) Calcium Level 10.0 mg/dL (8.5-10.1) White Blood Count 20.3 x10^3/uL (4.0-11.0) Red Blood Count 2.64 x10^6/uL (4.30-5.70) Hemoglobin 8.4 g/dL (13.0-17.5) Hematocrit 25.7 % (39.0-53.0) Mean Corpuscular Volume 98 fL (79-100) Mean Corpuscular Hemoglobin 32 pg (25-35) Mean Corpuscular Hemoglobin Concent 33 g/dL (31-37) Red Cell Distribution Width 15.1 % (11.5-14.5) Platelet Count 141 x10^3/uL (140-400) Neutrophils (%) (Auto) 88 % (31-73) Lymphocytes (%) (Auto) 4 % (24-48) Monocytes (%) (Auto) 6 % (0-9) Eosinophils (%) (Auto) 1 % (0-3) Basophils (%) (Auto) 1 % (0-3) Neutrophils # (Auto) 17.9 x10^3uL (1.8-7.7) Lymphocytes # (Auto) 0.9 x10^3/uL (1.0-4.8) Monocytes # (Auto) 1.3 x10^3/uL (0.0-1.1) Eosinophils # (Auto) 0.1 x10^3/uL (0.0-0.7) Basophils # (Auto) 0.1 x10^3/uL (0.0-0.2) Problem List stable surgically BORIS WASSERMAN MD 02/15/18 1234: SURGICAL PROGRESS NOTE Assessment/Plan Agree with above 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
[2018-02-15] MEDS: AMOXICILLIN/K CLAV 875/125MG TABLET. PO SCH ×2 (09:55→20:45)
[2018-02-15] MEDS: AMIODARONE HCL 200 MG TABLET. PO SCH (09:56)
[2018-02-15] MEDS: LACTOBACILLUS RHAMNOSUS GG 1 CAPSULE. PO SCH ×2 (09:56→20:45)
--- NOTE | 2018-02-15 10:07 | PDOC3 ---
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 History of CAD, with indwelling stents Anemia of chronic disease Mild thrombocytopenia dysphagia severe malnutrition constipation Brief Hospital Course Allergies Allergies Coded Allergies Type Severity Reaction Last Updated Verified No Known Drug Allergies 02/05/18 No Vital Signs Vital Signs Date Time Temp Pulse Resp B/P (MAP) Pulse Ox O2 Delivery O2 Flow Rate FiO2 02/15/18 09:56 76 145/66 02/15/18 07:35 94 Nasal Cannula 2.0 02/15/18 07:00 98.4 20 98.4 Lab Results Laboratory Tests Test 02/14/18 04:45 02/14/18 09:30 02/15/18 03:40 02/15/18 03:45 White Blood Count 17.5 x10^3/uL (4.0-11.0) 20.3 x10^3/uL (4.0-11.0) Red Blood Count 2.80 x10^6/uL (4.30-5.70) 2.64 x10^6/uL (4.30-5.70) Hemoglobin 9.0 g/dL (13.0-17.5) 8.4 g/dL (13.0-17.5) Hematocrit 27.4 % (39.0-53.0) 25.7 % (39.0-53.0) Mean Corpuscular Volume 98 fL (79-100) 98 fL (79-100) Mean Corpuscular Hemoglobin 32 pg (25-35) 32 pg (25-35) Mean Corpuscular Hemoglobin Concent 33 g/dL (31-37) 33 g/dL (31-37) Red Cell Distribution Width 15.0 % (11.5-14.5) 15.1 % (11.5-14.5) Platelet Count 144 x10^3/uL (140-400) 141 x10^3/uL (140-400) Neutrophils (%) (Auto) 87 % (31-73) 88 % (31-73) Lymphocytes (%) (Auto) 5 % (24-48) 4 % (24-48) Monocytes (%) (Auto) 8 % (0-9) 6 % (0-9) Eosinophils (%) (Auto) 1 % (0-3) 1 % (0-3) Basophils (%) (Auto) 0 % (0-3) 1 % (0-3) Neutrophils # (Auto) 15.2 x10^3uL (1.8-7.7) 17.9 x10^3uL (1.8-7.7) Lymphocytes # (Auto) 0.8 x10^3/uL (1.0-4.8) 0.9 x10^3/uL (1.0-4.8) Monocytes # (Auto) 1.3 x10^3/uL (0.0-1.1) 1.3 x10^3/uL (0.0-1.1) Eosinophils # (Auto) 0.1 x10^3/uL (0.0-0.7) 0.1 x10^3/uL (0.0-0.7) Basophils # (Auto) 0.1 x10^3/uL (0.0-0.2) 0.1 x10^3/uL (0.0-0.2) Segmented Neutrophils % 91 % (35-66) Lymphocytes % 5 % (24-48) Monocytes % 1 % (0-10) Eosinophils % 1 % (0-5) Metamyelocytes % 2 % (0-0) Platelet Estimate Adequate (ADEQUATE) Sodium Level 147 mmol/L (136-145) 144 mmol/L (136-145) Potassium Level 4.1 mmol/L (3.5-5.1) 4.7 mmol/L (3.5-5.1) Chloride Level 114 mmol/L (98-107) 113 mmol/L (98-107) Carbon Dioxide Level 30 mmol/L (21-32) 29 mmol/L (21-32) Anion Gap 3 (6-14) 2 (6-14) Blood Urea Nitrogen 48 mg/dL (8-26) 41 mg/dL (8-26) Creatinine 1.6 mg/dL (0.7-1.3) 1.3 mg/dL (0.7-1.3) Estimated GFR (Cockcroft-Gault) 42.2 53.7 Glucose Level 135 mg/dL (70-99) 121 mg/dL (70-99) Calcium Level 10.1 mg/dL (8.5-10.1) 10.0 mg/dL (8.5-10.1) Phosphorus Level 2.7 mg/dL (2.6-4.7) Albumin 2.1 g/dL (3.4-5.0) Urine Collection Type Unknown Urine Color [place] Urine Clarity Clear Urine pH 5.0 Urine Specific [place] 1.020 Urine Protein Negative mg/dL (NEG-TRACE) Urine Glucose (UA) Negative mg/dL (NEG) Urine Ketones (Stick) Negative mg/dL (NEG) Urine Blood Negative (NEG) Urine Nitrite Negative (NEG) Urine Bilirubin Negative (NEG) Urine Urobilinogen Dipstick 0.2 mg/dL (0.2 mg/dL) Urine Leukocyte Esterase Small (NEG) Urine RBC 0 /HPF (0-2) Urine WBC 5-10 /HPF (0-4) Urine Bacteria 0 /HPF (0-FEW) Laboratory Tests Test 02/15/18 03:40 02/15/18 03:45 Sodium Level 144 mmol/L (136-145) Potassium Level 4.7 mmol/L (3.5-5.1) Chloride Level 113 mmol/L (98-107) Carbon Dioxide Level 29 mmol/L (21-32) Anion Gap 2 (6-14) Blood Urea Nitrogen 41 mg/dL (8-26) Creatinine 1.3 mg/dL (0.7-1.3) Estimated GFR (Cockcroft-Gault) 53.7 Glucose Level 121 mg/dL (70-99) Calcium Level 10.0 mg/dL (8.5-10.1) White Blood Count 20.3 x10^3/uL (4.0-11.0) Red Blood Count 2.64 x10^6/uL (4.30-5.70) Hemoglobin 8.4 g/dL (13.0-17.5) Hematocrit 25.7 % (39.0-53.0) Mean Corpuscular Volume 98 fL (79-100) Mean Corpuscular Hemoglobin 32 pg (25-35) Mean Corpuscular Hemoglobin Concent 33 g/dL (31-37) Red Cell Distribution Width 15.1 % (11.5-14.5) Platelet Count 141 x10^3/uL (140-400) Neutrophils (%) (Auto) 88 % (31-73) Lymphocytes (%) (Auto) 4 % (24-48) Monocytes (%) (Auto) 6 % (0-9) Eosinophils (%) (Auto) 1 % (0-3) Basophils (%) (Auto) 1 % (0-3) Neutrophils # (Auto) 17.9 x10^3uL (1.8-7.7) Lymphocytes # (Auto) 0.9 x10^3/uL (1.0-4.8) Monocytes # (Auto) 1.3 x10^3/uL (0.0-1.1) Eosinophils # (Auto) 0.1 x10^3/uL (0.0-0.7) Basophils # (Auto) 0.1 x10^3/uL (0.0-0.2) Brief Hospital Course Mr. Quintero is a 77 old male who came from home admitted by general surgery primary service for scheduled laparoscopic cholecystectomy. But course remarkable for severe confusion postop needed neurology on board. This was most likely to a mix of Percocet and Seroquel which she was taking. Once we DC dose meds he was mentating pretty good. Needs SNU on discharge and he has agreed to it Discussed with search planner Izzy and RN. We were consulted for the above, cleared from both GS and IM to discharge MAR done, NO more percocet and seroquel pls Discharge Information Condition at Discharge: Improved, Stable Follow Up: Weeks (as per instrcutions) Disposition/Orders: Other (SNU) Scheduled Amiodarone Hcl (Amiodarone Hcl) 200 Mg Tablet, 100 MG PO DAILY, (Reported) Entered as Reported by: Ti Mata on 06/10/17 0017 Last Taken: Unknown Dose on 02/02/18 0700 Last Action: Continued on 1350 by JOHN JOHN Atorvastatin Calcium (Atorvastatin Calcium) 10 Mg Tablet, 10 MG PO HS for FOR CHOLESTEROL, #30 Ref 0 (Reported) Entered as Reported by: Lynnette Angeles on 10/16/14 1133 Last Action: Continued on 02/11/18 1350 by JOHN JOHN Calcitriol (Calcitriol) 0.25 Mcg Capsule, 0.25 MCG PO QM-W-F, (Reported) Entered as Reported by: YOVANI MOLINA on 05/24/16 2310 Ferrous Sulfate (Ferrous Sulfate) 325 Mg Tablet, 1 TAB PO DAILY, #30 Ref 3 ( Reported) Entered as Reported by: JOHNYN CARRIZALES on 01/28/18 0935 Fluticasone Propionate (Flonase) 16 Gm Accident.susp, 2 SPRAY NS BID, (Reported) Entered as Reported by: CHAVA SMALL on 01/06/14 2253 Furosemide (Furosemide) 20 Mg Tablet, 10 MG PO QMWF, (Reported) Entered as Reported by: Ti Mata on 06/10/17 0017 Last Taken: Unknown Dose on 02/02/18 0700 Last Action: Continued on 1815 by Araceli Castaneda Loratadine (Loratadine) 10 Mg Tablet, 10 MG PO QHS, (Reported) Entered as Reported by: Lynnette Angeles on 10/16/14 1133 Metoprolol Succinate (Metoprolol Succinate ( Xl )) 25 Mg Tab.er.24h, 1 TAB PO QPM, #30 Ref 5 (Reported) Entered as Reported by: SHERRY ALONSO on 11/13/16 0857 Last Taken: Unknown Dose on 02/02/181999 Last Action: Continued on 1350 by JOHN JOHN Tamsulosin Hcl (Tamsulosin Hcl) 0.4 Mg Cap.er.24h, 0.4 MG PO QHS, (Reported) Entered as Reported by: Lynnette Angeles on 10/16/14 1133 Last Taken: Unknown Dose on 02/02/181999 Last Action: Continued on 1815 by Araceli Castaneda Warfarin Sodium (Warfarin Sodium) 5 Mg Tablet, 5 MG PO QMWF, (Reported) Entered as Reported by: YOVANI MOLINA on 05/24/16 2310 Last Taken: Unknown Dose on 01/29/18 Last Action: Last Taken Edited on 02/03/18 08 by Katelynn George Warfarin Sodium (Warfarin Sodium) 5 Mg Tablet, 7.5 MG PO QTUTHSA, (Reported) Entered as Reported by: Ti Mata on 06/10/17 0017 Last Taken: Unknown Dose on 01/29/18 Last Action: Last Taken Edited on 02/03/18 0857 by Katelynn George Scheduled PRN Ipratropium/Albuterol Sulfate (Duoneb 0.5-3(2.5) Mg/3 Ml) 3 Ml Ampul.neb, 3 ML IH TID PRN for SHORTNESS OF BREATH, (Reported) Entered as Reported by: KADEN PRINGLE on 07/24/14 1038 Miscellaneous Medications B Complex With Vitamin C (Super B Complex-Vitamin C) 1 Each Tablet, 1 EACH PO, ( Reported) Entered as Reported by: SHERRY WOODSON on 12/04/171946 RICO MICHEL MD Feb 15, 2018 10:07
--- NOTE | 2018-02-15 10:18 | PDOC ---
Subjective: Subjective: Says he's doing well and is anxious to be discharged. Doesn't like thickened liquids but eating okay - says had eggs and oatmeal this morning. Objective: Objective: D/w RN - possible DC today. No confusion, tolerating PO, stooling. Vital Signs: Vital Signs Date Time Temp Pulse Resp B/P (MAP) Pulse Ox O2 Delivery O2 Flow Rate FiO2 02/15/18 09:56 76 145/66 02/15/18 07:35 94 Nasal Cannula 2.0 02/15/18 07:00 98.4 20 98.4 Labs: Laboratory Tests Test 02/15/18 03:40 02/15/18 03:45 Sodium Level 144 mmol/L Potassium Level 4.7 mmol/L Chloride Level 113 mmol/L Carbon Dioxide Level 29 mmol/L Anion Gap 2 Blood Urea Nitrogen 41 mg/dL Creatinine 1.3 mg/dL Estimated GFR (Cockcroft-Gault) 53.7 Glucose Level 121 mg/dL Calcium Level 10.0 mg/dL White Blood Count 20.3 x10^3/uL Red Blood Count 2.64 x10^6/uL Hemoglobin 8.4 g/dL Hematocrit 25.7 % Mean Corpuscular Volume 98 fL Mean Corpuscular Hemoglobin 32 pg Mean Corpuscular Hemoglobin Concent 33 g/dL Red Cell Distribution Width 15.1 % Platelet Count 141 x10^3/uL Neutrophils (%) (Auto) 88 % Lymphocytes (%) (Auto) 4 % Monocytes (%) (Auto) 6 % Eosinophils (%) (Auto) 1 % Basophils (%) (Auto) 1 % Neutrophils # (Auto) 17.9 x10^3uL Lymphocytes # (Auto) 0.9 x10^3/uL Monocytes # (Auto) 1.3 x10^3/uL Eosinophils # (Auto) 0.1 x10^3/uL Basophils # (Auto) 0.1 x10^3/uL Imaging: Videoswallow 02/12 IMPRESSION: Deep laryngeal penetration of the thin liquids which abated when thickened liquids were utilized. Initial Videoswallow Study Report Deep penetration, not ejected at swallow w/thin liquids. This is c/w bedside observations of throat clearing inconsistently as unejected penetration likely is eventually aspirated. Deep penetration, again not ejected, noted w/solid + honey thick liquid. Pt deeply penetrated honey thick before swallow when he was masticating solid and took a large bolus of the HTL. However, solids alone and honey thick alone both appeared safe and w/o penetration. IMPRESSIONS: Mild-moderate oropharyngeal dysphagia w/high risk of aspiration before swallow on thin liquids and mixed consistency solids + honey thick liquids. Pt inconsistently w/wet phonation quality on his own secretions and no spontaneous response to same. Suspect reduced sensation which may place pt at risk of SILENT aspiration. Would benefit from continued modified diet and precautions as outlined. Should be able to meet nutritional needs via po intake but may need supplemental oral r/t efficiency issues. Etiology of current dysphagia is presumed associated w/current changes r/t acute illness & encephalopathy. As such, dysphagia should con't to improve. RECOMMENDATIONS: Dysphagia III w/honey thick liquids. NO unthickened liquids- NO ice cream, jello, broth, etc. Precautions as posted including small bolus and swallow food before taking liquid. Meds w/honey thick liquids. PE: GEN: NAD LUNGS: diminished HEART: RR ABD: NABS, S/ND/NT NEURO/PSYCH: A & O 3 A/P: Choledocholithiasis s/p ERCP Resp failure - better Post-op delirium - resolved Dysphagia - stable, tolerating diet Leukocytosis - worse -- Stable GI-vasquez. Discharge discussed but WBC worse. BI WILCOX Feb 15, 2018 10:18
[2018-02-15 11:00] VITALS: BP 115/66
[2018-02-15 11:41] LABS: WHITE BLOOD COUNT 20.3 x10^3/uL (4.0-11.0)
--- NOTE | 2018-02-15 13:09 | PDOC ---
Renal-Progress Notes Subjective Notes Notes NONE History of Present Illness Hx of present illness STABLE Vitals Vitals Vital Signs Date Time Temp Pulse Resp B/P (MAP) Pulse Ox O2 Delivery O2 Flow Rate FiO2 02/15/18 11:57 94 Nasal Cannula 2.0 02/15/18 09:56 76 145/66 02/15/18 07:00 98.4 20 98.4 Weight Weight [ ] I.O. Intake and Output Intake and Output 02/15/18 07:00 Intake Total 3080 ml Output Total 1250 ml Balance 1830 ml Intake Oral 2080 ml IV Total 1000 ml Output Urine Total 1250 ml # Bowel Movements 7 Labs Labs Laboratory Tests Test 02/15/18 03:40 02/15/18 03:45 Sodium Level 144 mmol/L (136-145) Potassium Level 4.7 mmol/L (3.5-5.1) Chloride Level 113 mmol/L (98-107) Carbon Dioxide Level 29 mmol/L (21-32) Anion Gap 2 (6-14) Blood Urea Nitrogen 41 mg/dL (8-26) Creatinine 1.3 mg/dL (0.7-1.3) Estimated GFR (Cockcroft-Gault) 53.7 Glucose Level 121 mg/dL (70-99) Calcium Level 10.0 mg/dL (8.5-10.1) White Blood Count 20.3 x10^3/uL (4.0-11.0) Red Blood Count 2.64 x10^6/uL (4.30-5.70) Hemoglobin 8.4 g/dL (13.0-17.5) Hematocrit 25.7 % (39.0-53.0) Mean Corpuscular Volume 98 fL (79-100) Mean Corpuscular Hemoglobin 32 pg (25-35) Mean Corpuscular Hemoglobin Concent 33 g/dL (31-37) Red Cell Distribution Width 15.1 % (11.5-14.5) Platelet Count 141 x10^3/uL (140-400) Neutrophils (%) (Auto) 88 % (31-73) Lymphocytes (%) (Auto) 4 % (24-48) Monocytes (%) (Auto) 6 % (0-9) Eosinophils (%) (Auto) 1 % (0-3) Basophils (%) (Auto) 1 % (0-3) Neutrophils # (Auto) 17.9 x10^3uL (1.8-7.7) Lymphocytes # (Auto) 0.9 x10^3/uL (1.0-4.8) Monocytes # (Auto) 1.3 x10^3/uL (0.0-1.1) Eosinophils # (Auto) 0.1 x10^3/uL (0.0-0.7) Basophils # (Auto) 0.1 x10^3/uL (0.0-0.2) Micro Micro Microbiology 02/04/18 Blood Culture - Final, Complete NO GROWTH AFTER 5 DAYS 02/08/18 - Final, Complete 02/08/18 - Final, Complete 02/08/18 - Final, Complete 02/08/18 - Final, Complete 02/08/18 Gram Stain Evaluation - Final, Complete 02/08/18 Sputum Culture - Final, Complete 02/08/18 Sputum Result 1 - Final, Complete 02/08/18 Sputum Result 2 - Final, Complete 02/08/18 Antimicrobic Susceptibility - Final, Complete Review of Systems Constitutional: yes: alert, oriented Ears/Nose/Throat: Yes: no symptom reported Eyes: Yes: no symptom reported Pulmonary: Yes no symptom reported Cardiovascular: Yes no symptom reported Gastrointestional: Yes: no symptom reported Genitourinary: Yes: no symptom reported Musculoskeletal: Yes: no symptom reported Skin: Yes no symptom reported Psychiatric/Neurological: Yes: no symptom reported Endocrine: Yes: no symptom reported Physical Exam General Appearance: no apparent distress Respiratory: bilateral CTA Heart: S1S2 Abdomen: soft, bowel sounds present Genitourinary: bladder flat Extremities: pulses present Neurology: alert, follow commands, other (drowsy/groggy after ERCP) Musculoskeletal: Osteoarthritis Assessment Assessment IMP JAYDON-BETTER CR DOWN TO 1.3 HYPERNATREMIA-RESOLVED S/P LAP CHOLY AND THEN ERCP PLAN ANTIBIOTICS ENC PO WILL FOLLOW NEEDED MICHELLE WHYTE MD Feb 15, 2018 13:09
--- NOTE | 2018-02-15 13:16 | PDOC ---
PULMONARY PROGRESS NOTES Subjective sob cough, better, on home 02, w activity and qhs, no pain Vitals Vital Signs Date Time Temp Pulse Resp B/P (MAP) Pulse Ox O2 Delivery O2 Flow Rate FiO2 02/15/18 11:57 94 Nasal Cannula 2.0 02/15/18 11:00 98.7 75 20 115/66 (82) 98.7 ROS: No Nausea General: Alert, No acute distress HEENT: Other (nc at perrl nose throat clear) Lungs: Clear Cardiovascular: Other (irreg irreg) Abdomen: Soft, Non-tender, Other (DISTENDED) Neuro Exam: Alert Extremities: No Edema Skin: Warm Labs Laboratory Tests Test 02/14/18 04:45 02/14/18 09:30 02/15/18 03:40 02/15/18 03:45 White Blood Count 17.5 x10^3/uL (4.0-11.0) 20.3 x10^3/uL (4.0-11.0) Red Blood Count 2.80 x10^6/uL (4.30-5.70) 2.64 x10^6/uL (4.30-5.70) Hemoglobin 9.0 g/dL (13.0-17.5) 8.4 g/dL (13.0-17.5) Hematocrit 27.4 % (39.0-53.0) 25.7 % (39.0-53.0) Mean Corpuscular Volume 98 fL (79-100) 98 fL (79-100) Mean Corpuscular Hemoglobin 32 pg (25-35) 32 pg (25-35) Mean Corpuscular Hemoglobin Concent 33 g/dL (31-37) 33 g/dL (31-37) Red Cell Distribution Width 15.0 % (11.5-14.5) 15.1 % (11.5-14.5) Platelet Count 144 x10^3/uL (140-400) 141 x10^3/uL (140-400) Neutrophils (%) (Auto) 87 % (31-73) 88 % (31-73) Lymphocytes (%) (Auto) 5 % (24-48) 4 % (24-48) Monocytes (%) (Auto) 8 % (0-9) 6 % (0-9) Eosinophils (%) (Auto) 1 % (0-3) 1 % (0-3) Basophils (%) (Auto) 0 % (0-3) 1 % (0-3) Neutrophils # (Auto) 15.2 x10^3uL (1.8-7.7) 17.9 x10^3uL (1.8-7.7) Lymphocytes # (Auto) 0.8 x10^3/uL (1.0-4.8) 0.9 x10^3/uL (1.0-4.8) Monocytes # (Auto) 1.3 x10^3/uL (0.0-1.1) 1.3 x10^3/uL (0.0-1.1) Eosinophils # (Auto) 0.1 x10^3/uL (0.0-0.7) 0.1 x10^3/uL (0.0-0.7) Basophils # (Auto) 0.1 x10^3/uL (0.0-0.2) 0.1 x10^3/uL (0.0-0.2) Segmented Neutrophils % 91 % (35-66) Lymphocytes % 5 % (24-48) Monocytes % 1 % (0-10) Eosinophils % 1 % (0-5) Metamyelocytes % 2 % (0-0) Platelet Estimate Adequate (ADEQUATE) Sodium Level 147 mmol/L (136-145) 144 mmol/L (136-145) Potassium Level 4.1 mmol/L (3.5-5.1) 4.7 mmol/L (3.5-5.1) Chloride Level 114 mmol/L (98-107) 113 mmol/L (98-107) Carbon Dioxide Level 30 mmol/L (21-32) 29 mmol/L (21-32) Anion Gap 3 (6-14) 2 (6-14) Blood Urea Nitrogen 48 mg/dL (8-26) 41 mg/dL (8-26) Creatinine 1.6 mg/dL (0.7-1.3) 1.3 mg/dL (0.7-1.3) Estimated GFR (Cockcroft-Gault) 42.2 53.7 Glucose Level 135 mg/dL (70-99) 121 mg/dL (70-99) Calcium Level 10.1 mg/dL (8.5-10.1) 10.0 mg/dL (8.5-10.1) Phosphorus Level 2.7 mg/dL (2.6-4.7) Albumin 2.1 g/dL (3.4-5.0) Urine Collection Type Unknown Urine Color [place] Urine Clarity Clear Urine pH 5.0 Urine Specific [place] 1.020 Urine Protein Negative mg/dL (NEG-TRACE) Urine Glucose (UA) Negative mg/dL (NEG) Urine Ketones (Stick) Negative mg/dL (NEG) Urine Blood Negative (NEG) Urine Nitrite Negative (NEG) Urine Bilirubin Negative (NEG) Urine Urobilinogen Dipstick 0.2 mg/dL (0.2 mg/dL) Urine Leukocyte Esterase Small (NEG) Urine RBC 0 /HPF (0-2) Urine WBC 5-10 /HPF (0-4) Urine Bacteria 0 /HPF (0-FEW) Laboratory Tests Test 02/15/18 03:40 02/15/18 03:45 Sodium Level 144 mmol/L (136-145) Potassium Level 4.7 mmol/L (3.5-5.1) Chloride Level 113 mmol/L (98-107) Carbon Dioxide Level 29 mmol/L (21-32) Anion Gap 2 (6-14) Blood Urea Nitrogen 41 mg/dL (8-26) Creatinine 1.3 mg/dL (0.7-1.3) Estimated GFR (Cockcroft-Gault) 53.7 Glucose Level 121 mg/dL (70-99) Calcium Level 10.0 mg/dL (8.5-10.1) White Blood Count 20.3 x10^3/uL (4.0-11.0) Red Blood Count 2.64 x10^6/uL (4.30-5.70) Hemoglobin 8.4 g/dL (13.0-17.5) Hematocrit 25.7 % (39.0-53.0) Mean Corpuscular Volume 98 fL (79-100) Mean Corpuscular Hemoglobin 32 pg (25-35) Mean Corpuscular Hemoglobin Concent 33 g/dL (31-37) Red Cell Distribution Width 15.1 % (11.5-14.5) Platelet Count 141 x10^3/uL (140-400) Neutrophils (%) (Auto) 88 % (31-73) Lymphocytes (%) (Auto) 4 % (24-48) Monocytes (%) (Auto) 6 % (0-9) Eosinophils (%) (Auto) 1 % (0-3) Basophils (%) (Auto) 1 % (0-3) Neutrophils # (Auto) 17.9 x10^3uL (1.8-7.7) Lymphocytes # (Auto) 0.9 x10^3/uL (1.0-4.8) Monocytes # (Auto) 1.3 x10^3/uL (0.0-1.1) Eosinophils # (Auto) 0.1 x10^3/uL (0.0-0.7) Basophils # (Auto) 0.1 x10^3/uL (0.0-0.2) Medications Active Scripts Medications Dose Route/Sig Max Daily Dose Days Date Category Ferrous Sulfate 325 Mg Tablet 1 Tab PO DAILY 01/28/18 Reported Super B Complex-Vitamin C (B Complex With Vitamin C) 1 Each Tablet 1 Each PO 12/04/17 Reported Warfarin Sodium 5 Mg Tablet 7.5 Mg PO QTUTHSA 06/10/17 Reported Amiodarone Hcl 200 Mg Tablet 100 Mg PO DAILY 06/10/17 Reported Furosemide 20 Mg Tablet 10 Mg PO QMWF 06/10/17 Reported Metoprolol Succinate ( Xl ) (Metoprolol Succinate) 25 Mg Tab.er.24h 1 Tab PO QPM 11/13/16 Reported Calcitriol 0.25 Mcg Capsule 0.25 Mcg PO QM-W-F 05/24/16 Reported Warfarin Sodium 5 Mg Tablet 5 Mg PO QMWF 05/24/16 Reported Loratadine 10 Mg Tablet 10 Mg PO QHS 10/16/14 Reported Tamsulosin Hcl 0.4 Mg Cap.er.24h 0.4 Mg PO QHS 10/16/14 Reported Atorvastatin Calcium 10 Mg Tablet 10 Mg PO HS 10/16/14 Reported Duoneb 0.5-3(2.5) Mg/3 Ml (Albuterol/Ipratropium) 3 Ml Ampul.neb 3 Ml IH TID PRN 07/24/14 Reported Flonase (Fluticasone Propionate) 16 Gm [place].susp 2 [place] NS BID 01/06/14 Reported Comments CXR REVIEWED 02/09 ? Right basal atelectasis Impression . 1. Acute/Chronic resp failure, expected status post laparoscopic cholecystectomy. 02/03 2. Chronic obstructive pulmonary disease of the chronic bronchitic type. 3. Chronic atrial fibrillation. 4. Obstructive sleep apnea. 5. Common Bile duct stone S/P ERCP 02/05 6. JAYDON/CKD 7. Metabolic acidosis, relative ( he is a CO2 retainer), resolved 8. Postoperative delirium. resolved 9. Klebsiella Oxytoca bronchitis/ on augmentin 02/05 ERCP with sphincterotomy/stone extraction Meds MAC/GOETT Pre-op dx jaundice/abnl IOC/choledocholithiasis Post-op dx choledocholithiasis s/p sphincterotomy/stone extraction large khalida-ampullary diverticulum Plan serial labs monitor for complications possibly advance diet in am if no adverse events Plan . CONTINUE 02 titration FOLLOW NEUROLOGY REC bronchodilator cont augmentin 5 more days CONTINUE POST OP CARE increase activity IS discussed w pt ,rn and his stable for ALIYAH Brewer MD Feb 15, 2018 13:16
--- NOTE | 2018-02-15 14:12 | PDOC ---
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 Supportive care talked to swallow eval and pt and , would like to find something honey thickened pt may wanna try add PPN dc stool softner labs tmr Thanks for consulting us, we'll follow along with you FULL CODE off sitter History of Present Illness History of Present Illness Worsening WBC 20s now, no fevers NO steroids intra op Mentation better Pt aks me about his next swallow eval PLAN: Check UA< WBC tmr COnsult ID Dw GS and ID and RN Vitals Vitals Vital Signs Date Time Temp Pulse Resp B/P (MAP) Pulse Ox O2 Delivery O2 Flow Rate FiO2 02/15/18 11:57 94 Nasal Cannula 2.0 02/15/18 11:00 98.7 75 20 115/66 (82) 98.7 Physical Exam General: Alert, Oriented X3, Cooperative, No acute distress Heart: Regular rate, Normal S1, Normal S2, No murmurs Lungs: Clear Abdomen: Soft, No tenderness Extremities: No clubbing, No cyanosis Skin: No breakdown, No significant lesion, Other (postop wound, sutures looking good, no tenderness around that site) Labs LABS Laboratory Tests Test 02/15/18 03:40 02/15/18 03:45 Sodium Level 144 mmol/L (136-145) Potassium Level 4.7 mmol/L (3.5-5.1) Chloride Level 113 mmol/L (98-107) Carbon Dioxide Level 29 mmol/L (21-32) Anion Gap 2 (6-14) Blood Urea Nitrogen 41 mg/dL (8-26) Creatinine 1.3 mg/dL (0.7-1.3) Estimated GFR (Cockcroft-Gault) 53.7 Glucose Level 121 mg/dL (70-99) Calcium Level 10.0 mg/dL (8.5-10.1) White Blood Count 20.3 x10^3/uL (4.0-11.0) Red Blood Count 2.64 x10^6/uL (4.30-5.70) Hemoglobin 8.4 g/dL (13.0-17.5) Hematocrit 25.7 % (39.0-53.0) Mean Corpuscular Volume 98 fL (79-100) Mean Corpuscular Hemoglobin 32 pg (25-35) Mean Corpuscular Hemoglobin Concent 33 g/dL (31-37) Red Cell Distribution Width 15.1 % (11.5-14.5) Platelet Count 141 x10^3/uL (140-400) Neutrophils (%) (Auto) 88 % (31-73) Lymphocytes (%) (Auto) 4 % (24-48) Monocytes (%) (Auto) 6 % (0-9) Eosinophils (%) (Auto) 1 % (0-3) Basophils (%) (Auto) 1 % (0-3) Neutrophils # (Auto) 17.9 x10^3uL (1.8-7.7) Lymphocytes # (Auto) 0.9 x10^3/uL (1.0-4.8) Monocytes # (Auto) 1.3 x10^3/uL (0.0-1.1) Eosinophils # (Auto) 0.1 x10^3/uL (0.0-0.7) Basophils # (Auto) 0.1 x10^3/uL (0.0-0.2) Review of Systems Review of Systems neg 14 pt reviewed with pt Comment Review of Relevant I have reviewed the following items aron (where applicable) has been applied. Labs Laboratory Tests Test 02/14/18 04:45 02/14/18 09:30 02/15/18 03:40 02/15/18 03:45 White Blood Count 17.5 x10^3/uL (4.0-11.0) 20.3 x10^3/uL (4.0-11.0) Red Blood Count 2.80 x10^6/uL (4.30-5.70) 2.64 x10^6/uL (4.30-5.70) Hemoglobin 9.0 g/dL (13.0-17.5) 8.4 g/dL (13.0-17.5) Hematocrit 27.4 % (39.0-53.0) 25.7 % (39.0-53.0) Mean Corpuscular Volume 98 fL (79-100) 98 fL (79-100) Mean Corpuscular Hemoglobin 32 pg (25-35) 32 pg (25-35) Mean Corpuscular Hemoglobin Concent 33 g/dL (31-37) 33 g/dL (31-37) Red Cell Distribution Width 15.0 % (11.5-14.5) 15.1 % (11.5-14.5) Platelet Count 144 x10^3/uL (140-400) 141 x10^3/uL (140-400) Neutrophils (%) (Auto) 87 % (31-73) 88 % (31-73) Lymphocytes (%) (Auto) 5 % (24-48) 4 % (24-48) Monocytes (%) (Auto) 8 % (0-9) 6 % (0-9) Eosinophils (%) (Auto) 1 % (0-3) 1 % (0-3) Basophils (%) (Auto) 0 % (0-3) 1 % (0-3) Neutrophils # (Auto) 15.2 x10^3uL (1.8-7.7) 17.9 x10^3uL (1.8-7.7) Lymphocytes # (Auto) 0.8 x10^3/uL (1.0-4.8) 0.9 x10^3/uL (1.0-4.8) Monocytes # (Auto) 1.3 x10^3/uL (0.0-1.1) 1.3 x10^3/uL (0.0-1.1) Eosinophils # (Auto) 0.1 x10^3/uL (0.0-0.7) 0.1 x10^3/uL (0.0-0.7) Basophils # (Auto) 0.1 x10^3/uL (0.0-0.2) 0.1 x10^3/uL (0.0-0.2) Segmented Neutrophils % 91 % (35-66) Lymphocytes % 5 % (24-48) Monocytes % 1 % (0-10) Eosinophils % 1 % (0-5) Metamyelocytes % 2 % (0-0) Platelet Estimate Adequate (ADEQUATE) Sodium Level 147 mmol/L (136-145) 144 mmol/L (136-145) Potassium Level 4.1 mmol/L (3.5-5.1) 4.7 mmol/L (3.5-5.1) Chloride Level 114 mmol/L (98-107) 113 mmol/L (98-107) Carbon Dioxide Level 30 mmol/L (21-32) 29 mmol/L (21-32) Anion Gap 3 (6-14) 2 (6-14) Blood Urea Nitrogen 48 mg/dL (8-26) 41 mg/dL (8-26) Creatinine 1.6 mg/dL (0.7-1.3) 1.3 mg/dL (0.7-1.3) Estimated GFR (Cockcroft-Gault) 42.2 53.7 Glucose Level 135 mg/dL (70-99) 121 mg/dL (70-99) Calcium Level 10.1 mg/dL (8.5-10.1) 10.0 mg/dL (8.5-10.1) Phosphorus Level 2.7 mg/dL (2.6-4.7) Albumin 2.1 g/dL (3.4-5.0) Urine Collection Type Unknown Urine Color [place] Urine Clarity Clear Urine pH 5.0 Urine Specific [place] 1.020 Urine Protein Negative mg/dL (NEG-TRACE) Urine Glucose (UA) Negative mg/dL (NEG) Urine Ketones (Stick) Negative mg/dL (NEG) Urine Blood Negative (NEG) Urine Nitrite Negative (NEG) Urine Bilirubin Negative (NEG) Urine Urobilinogen Dipstick 0.2 mg/dL (0.2 mg/dL) Urine Leukocyte Esterase Small (NEG) Urine RBC 0 /HPF (0-2) Urine WBC 5-10 /HPF (0-4) Urine Bacteria 0 /HPF (0-FEW) Laboratory Tests Test 02/15/18 03:40 02/15/18 03:45 Sodium Level 144 mmol/L (136-145) Potassium Level 4.7 mmol/L (3.5-5.1) Chloride Level 113 mmol/L (98-107) Carbon Dioxide Level 29 mmol/L (21-32) Anion Gap 2 (6-14) Blood Urea Nitrogen 41 mg/dL (8-26) Creatinine 1.3 mg/dL (0.7-1.3) Estimated GFR (Cockcroft-Gault) 53.7 Glucose Level 121 mg/dL (70-99) Calcium Level 10.0 mg/dL (8.5-10.1) White Blood Count 20.3 x10^3/uL (4.0-11.0) Red Blood Count 2.64 x10^6/uL (4.30-5.70) Hemoglobin 8.4 g/dL (13.0-17.5) Hematocrit 25.7 % (39.0-53.0) Mean Corpuscular Volume 98 fL (79-100) Mean Corpuscular Hemoglobin 32 pg (25-35) Mean Corpuscular Hemoglobin Concent 33 g/dL (31-37) Red Cell Distribution Width 15.1 % (11.5-14.5) Platelet Count 141 x10^3/uL (140-400) Neutrophils (%) (Auto) 88 % (31-73) Lymphocytes (%) (Auto) 4 % (24-48) Monocytes (%) (Auto) 6 % (0-9) Eosinophils (%) (Auto) 1 % (0-3) Basophils (%) (Auto) 1 % (0-3) Neutrophils # (Auto) 17.9 x10^3uL (1.8-7.7) Lymphocytes # (Auto) 0.9 x10^3/uL (1.0-4.8) Monocytes # (Auto) 1.3 x10^3/uL (0.0-1.1) Eosinophils # (Auto) 0.1 x10^3/uL (0.0-0.7) Basophils # (Auto) 0.1 x10^3/uL (0.0-0.2) Microbiology 02/04/18 Blood Culture - Final, Complete NO GROWTH AFTER 5 DAYS 02/08/18 - Final, Complete 02/08/18 - Final, Complete 02/08/18 - Final, Complete 02/08/18 - Final, Complete 02/08/18 Gram Stain Evaluation - Final, Complete 02/08/18 Sputum Culture - Final, Complete 02/08/18 Sputum Result 1 - Final, Complete 02/08/18 Sputum Result 2 - Final, Complete 02/08/18 Antimicrobic Susceptibility - Final, Complete Medications Current Medications Ondansetron HCl (Zofran) 4 mg PRN Q6HRS PRN IV NAUSEA/VOMITING Last administered on 02/04/18at 04:08; Start 02/03/18 at 07:00; Stop 02/04/18 at 06:59; Status DC Fentanyl Citrate (Fentanyl 2ml Vial) 25 mcg PRN Q5MIN PRN IV MILD PAIN Last administered on 02/03/18at 12:13; Start 02/03/18 at 07:00; Stop 02/04/18 at 06:59; Status DC Fentanyl Citrate (Fentanyl 2ml Vial) 50 mcg PRN Q5MIN PRN IV MODERATE TO SEVERE PAIN; Start 02/03/18 at 07:00; Stop 02/04/18 at 06:59; Status DC Morphine Sulfate (Morphine Sulfate) 1 mg PRN Q10MIN PRN IV SEVERE PAIN Last administered on 02/03/18at 11:42; Start 02/03/18 at 07:00; Stop 02/04/18 at 06:59; Status DC Ringer's Solution 1,000 ml @ 30 mls/hr Q24H IV Last administered on 02/03/18at 09:13; Start 02/03/18 at 07:00; Stop 02/03/18 at 18:59; Status DC Lidocaine HCl (Xylocaine-Mpf 1% Vial) 2 ml PRN 1X PRN ID PRIOR TO IV START; Start 02/03/18 at 07:00; Stop 02/04/18 at 06:59; Status DC Prochlorperazine Edisylate (Compazine) 5 mg PACU PRN PRN IV NAUSEA, MRX1; Start 02/03/18 at 07:00; Stop 02/04/18 at 06:59; Status DC Cefazolin Sodium/ Dextrose 50 ml @ 100 mls/hr 1X PREOP PRN IV PRIOR TO SURGERY Last administered on 02/03/18at 09:35; Start 02/03/18 at 08:00; Stop at 14:44; Status DC Fentanyl Citrate (Fentanyl 2ml Vial) 100 mcg STK-MED ONCE .ROUTE ; Start at 08:09; Stop 02/03/18 at 08:10; Status DC Rocuronium [place] (Zemuron) 50 mg STK-MED ONCE .ROUTE ; Start 02/03/18 at 08:09 ; Stop 02/03/18 at 08:10; Status DC Desflurane (Suprane) 60 ml STK-MED ONCE IH ; Start 02/03/18 at 08:09; Stop at 08:10; Status DC Dexamethasone Sodium Phosphate (Decadron) 20 mg STK-MED ONCE .ROUTE ; Start 02/03 at 08:09; Stop 02/03/18 at 08:10; Status DC Propofol 20 ml @ As Directed STK-MED ONCE IV ; Start 02/03/18 at 08:09; Stop 02/03 at 08:10; Status DC Lidocaine HCl (Lidocaine Pf 2% Vial) 5 ml STK-MED ONCE .ROUTE ; Start 02/03/18 at 08:09; Stop 02/03/18 at 08:10; Status DC Ondansetron HCl (Zofran) 4 mg STK-MED ONCE .ROUTE ; Start 02/03/18 at 08:09; Stop 02/03/18 at 08:10; Status DC Ketorolac Tromethamine (Toradol For Or Only) 30 mg STK-MED ONCE INJ ; Start 02/03 at 08:09; Stop 02/03/18 at 08:10; Status DC Ephedrine Sulfate (ePHEDrine PF IN SALINE SYRINGE) 50 mg STK-MED ONCE IV ; Start 02/03/18 at 08:15; Stop 02/03/18 at 08:16; Status DC Bupivacaine HCl/ Epinephrine Bitart (Marcaine-Epi 0.5%-[id number]) 50 ml STK-MED ONCE .ROUTE Last administered on 02/03/18at 09:49; Start 02/03/18 at 07:56; Stop 02/03/18 at 08:57; Status DC Iohexol (Omnipaque 300 Mg/ml) 100 ml STK-MED ONCE .ROUTE Last administered on at 09:49; Start 02/03/18 at 07:56; Stop 02/03/18 at 08:58; Status DC Phenylephrine HCl (PHENYLEPHRINE in 0.9% NACL PF) 1 mg STK-MED ONCE IV ; Start 02/03/18 at 09:24; Stop 02/03/18 at 09:25; Status DC Glycopyrrolate (Robinul) 1 mg STK-MED ONCE .ROUTE ; Start 02/03/18 at 09:55; Stop 02/03/18 at 09:56; Status DC Neostigmine Methylsulfate (Neostigmine Methylsulfate) 5 mg STK-MED ONCE .ROUTE ; Start 02/03/18 at 09:55; Stop 02/03/18 at 09:56; Status DC Albuterol Sulfate (Ventolin Neb Soln) 2.5 mg 1X PACU PRN NEB SHORTNESS OF BREATH Last administered on 02/03/18at 10:53; Start 02/03/18 at 11:00; Stop at 17:39; Status DC Diphenhydramine HCl (Benadryl) 25 mg PRN Q6HRS PRN PO ITCHING Last administered on 02/14/18at 22:31; Start 02/03/18 at 11:00 Diphenhydramine HCl (Benadryl) 25 mg PRN Q6HRS PRN IV ITCHING Last administered on 02/09/18at 22:30; Start 02/03/18 at 11:00 Enoxaparin Sodium (Lovenox 40mg Syringe) 40 mg Q24H SQ ; Start 02/03/18 at 11:00 ; Status Cancel Sodium Chloride (Normal Saline Flush) 3 ml QSHIFT PRN IV AFTER MEDS AND BLOOD DRAWS; Start 02/03/18 at 11:00 Potassium Chloride/Sodium Chloride 1,000 ml @ 75 mls/hr [id number] IV Last administered on 02/03/18at 23:55; Start 02/03/18 at 10:46; Stop 02/04/18 at 11:37; Status DC Dextrose (Dextrose 50%-Water Syringe) 12.5 gm PRN Q15MIN PRN IV SEE COMMENTS; Start 02/03/18 at 11:00 Oxycodone/ Acetaminophen (Percocet 5/325) 1 tab PRN Q4HRS PRN PO MILD PAIN, 1ST CHOICE Last administered on 02/12/18at 02:12; Start 02/03/18 at 11:00; Stop at 08:42; Status DC Oxycodone/ Acetaminophen (Percocet 5/325) 2 tab PRN Q4HRS PRN PO MODERATE PAIN , SEVERE PAIN; Start 02/03/18 at 11:00; Stop 02/12/18 at 08:42; Status DC Morphine Sulfate (Morphine Sulfate) 5 mg PRN Q3HRS PRN IV MODERATE TO SEVERE PAIN Last administered on 02/10/18at 17:55; Start 02/03/18 at 11:15 Docusate Sodium (Colace) 100 mg BID PO Last administered on 02/13/18at 21:21; Start 02/03/18 at 11:00; Stop 02/14/18 at 12:30; Status DC Ondansetron HCl (Zofran) 4 mg PRN Q6HRS PRN IV NAUESA, 1ST CHOICE Last administered on 02/12/18at 02:11; Start 02/03/18 at 11:00 Enoxaparin Sodium (Lovenox 40mg Syringe) 40 mg Q24H SQ ; Start 02/04/18 at 09:00 ; Stop 02/04/18 at 09:00; Status DC Hydralazine HCl (Apresoline Inj) 10 mg 1X PACU PRN IVP ELEVATED BP, SEE COMMENTS; Start 02/03/18 at 12:15; Stop 02/03/18 at 20:00; Status DC Oxycodone/ Acetaminophen (Percocet 5/325) 1 tab 1X PACU PRN PO PAIN Last administered on 02/03/18at 12:20; Start 02/03/18 at 12:15; Stop 02/03/18 at 20:00; Status DC Albuterol Sulfate (Ventolin Neb Soln) 2.5 mg PRN Q2HR PRN NEB [id number] Last administered on 02/13/18at 01:47; Start 02/03/18 at 15:00 Albuterol/ Ipratropium (Duoneb) 3 ml RTQID NEB Last administered on 02/12/18at 20:00; Start 02/03/18 at 16:00; Stop 02/13/18 at 01:32; Status DC Ondansetron HCl (Zofran) 4 mg PRN Q6HRS PRN IV NAUSEA/VOMITING; Start 02/04/18 at 07:00; Stop 02/05/18 at 06:59; Status DC Fentanyl Citrate (Fentanyl 2ml Vial) 25 mcg PRN Q5MIN PRN IV MILD PAIN; Start 02/04/18 at 07:00; Stop 02/05/18 at 06:59; Status DC Fentanyl Citrate (Fentanyl 2ml Vial) 50 mcg PRN Q5MIN PRN IV MODERATE TO SEVERE PAIN; Start 02/04/18 at 07:00; Stop 02/05/18 at 06:59; Status DC Morphine Sulfate (Morphine Sulfate) 1 mg PRN Q10MIN PRN IV SEVERE PAIN; Start 02/04/18 at 07:00; Stop 02/05/18 at 06:59; Status DC Ringer's Solution 1,000 ml @ 30 mls/hr Q24H IV ; Start 02/04/18 at 07:00; Stop 02/04/18 at 18:59; Status DC Lidocaine HCl (Xylocaine-Mpf 1% Vial) 2 ml PRN 1X PRN ID IV START; Start at 07:00; Stop 02/05/18 at 06:59; Status DC Prochlorperazine Edisylate (Compazine) 5 mg PACU PRN PRN IV NAUSEA, MRX1; Start 02/04/18 at 07:00; Stop 02/05/18 at 06:59; Status DC Furosemide (Lasix) 40 mg 1X ONCE IVP Last administered on 02/04/18at 12:47; Start 02/04/18 at 11:45; Stop 02/04/18 at 11:46; Status DC Sodium Chloride 1,000 ml @ 100 mls/hr Q10H IV Last administered on 02/05/18at 21 :05; Start 02/04/18 at 12:00; Stop 02/06/18 at 13:12; Status DC Hydralazine HCl (Apresoline Inj) 10 mg PRN Q4HRS PRN IVP ELEVATED BP, SEE COMMENTS Last administered on 02/10/18at 03:12; Start 02/04/18 at 12:15 Iohexol (Omnipaque 300 Mg/ml) 100 ml STK-MED ONCE .ROUTE ; Start 02/04/18 at 12: 11; Stop 02/04/18 at 12:12; Status DC Cefazolin Sodium/ Dextrose (Ancef 2gm Premix) 2 gm STK-MED ONCE IV ; Start at 07:00; Stop 02/04/18 at 12:31; Status DC Propofol 0 ml @ As Directed STK-MED ONCE IV ; Start 02/04/18 at 13:50; Stop at 13:51; Status DC Lidocaine HCl (Lidocaine Pf 2% Vial) 5 ml STK-MED ONCE .ROUTE ; Start 02/04/18 at 13:50; Stop 02/04/18 at 13:51; Status DC Famotidine (Pepcid Vial) 20 mg STK-MED ONCE .ROUTE ; Start 02/04/18 at 13:50; Stop 02/04/18 at 13:51; Status DC Dexamethasone Sodium Phosphate (Decadron) 20 mg STK-MED ONCE .ROUTE ; Start 02/04 at 13:50; Stop 02/04/18 at 13:52; Status DC Ondansetron HCl (Zofran) 4 mg STK-MED ONCE .ROUTE ; Start 02/04/18 at 13:50; Stop 02/04/18 at 13:52; Status DC Lorazepam (Ativan) 0.5 mg PRN Q8HRS PRN PO ANXIETY / AGITATION Last administered on 02/14/18at 21:09; Start 02/04/18 at 15:15 Furosemide (Lasix) 40 mg 1X ONCE IVP Last administered on 02/04/18at 17:00; Start 02/04/18 at 16:45; Stop 02/04/18 at 16:46; Status DC Ciprofloxacin/ Dextrose 200 ml @ 200 mls/hr Q12HR IV Last administered on at 08:10; Start 02/04/18 at 17:30; Stop 02/06/18 at 14:49; Status DC Metronidazole 100 ml @ 100 mls/hr Q12HR IV Last administered on 02/09/18at 20:52 ; Start 02/04/18 at 17:30; Stop 02/10/18 at 13:43; Status DC Metoclopramide HCl (Reglan Vial) 5 mg PRN Q6HRS PRN IV NAUSEA/VOMITING 2nd CHOICE Last administered on 02/05/18at 13:05; Start 02/04/18 at 17:30; Stop at 15:13; Status DC Lorazepam (Ativan) 0.5 mg PRN Q6HRS PRN IV ANXIETY / AGITATION 1ST CHOICE Last administered on 02/13/18at 09:56; Start 02/04/18 at 20:45 Acetaminophen (Tylenol) 500 mg PRN Q4HRS PRN PO FEVER; Start 02/04/18 at 22:15 Furosemide (Lasix) 40 mg 1X ONCE IVP Last administered on 02/05/18at 01:15; Start 02/05/18 at 01:30; Stop 02/05/18 at 01:31; Status DC Ringer's Solution 1,000 ml @ 75 mls/hr [id number] IV Last administered on at 09:52; Start 02/05/18 at 10:00; Stop 02/06/18 at 13:12; Status DC Iohexol (Omnipaque 300 Mg/ml) 100 ml STK-MED ONCE .ROUTE ; Start 02/05/18 at 10: 10; Stop 02/05/18 at 10:11; Status DC Fentanyl Citrate (Fentanyl 2ml Vial) 100 mcg STK-MED ONCE .ROUTE ; Start at 10:33; Stop 02/05/18 at 10:34; Status DC Ondansetron HCl (Zofran) 4 mg STK-MED ONCE .ROUTE ; Start 02/05/18 at 11:01; Stop 02/05/18 at 11:03; Status DC Iohexol (Omnipaque 300 Mg/ml) 100 ml STK-MED ONCE IV Last administered on at 11:27; Start 02/05/18 at 11:27; Stop 02/05/18 at 11:29; Status DC Haloperidol Lactate (Haldol Inj) 5 mg PRN Q6HRS PRN IVP AGITATION 2ND CHOICE Last administered on 02/10/18at 09:00; Start 02/05/18 at 12:30 Ciprofloxacin/ Dextrose 200 ml @ 200 mls/hr Q24H IV Last administered on at 08:25; Start 02/07/18 at 08:00; Stop 02/12/18 at 09:45; Status DC Magnesium Sulfate 50 ml @ 25 mls/hr PRN DAILY PRN IV for Mag < 1.7 on am labs; Start 02/07/18 at 09:00 Darbepoetin Rob (Aranesp) 60 mcg [id number] SQ Last administered on 02/14/18at 21 :10; Start 02/07/18 at 21:00 Lactobacillus Rhamnosus (Culturelle) 1 cap BID PO Last administered on at 09:56; Start 02/08/18 at 21:00 Sodium Chloride 1,000 ml @ 125 mls/hr Q8H IV Last administered on 02/09/18at 04: 39; Start 02/08/18 at 10:00; Stop 02/09/18 at 10:23; Status DC Furosemide (Lasix) 40 mg 1X ONCE IVP Last administered on 02/08/18at 12:07; Start 02/08/18 at 11:30; Stop 02/08/18 at 11:31; Status DC Amino Acids/ Glycerin/ Electrolytes 1,000 ml @ 75 mls/hr [id number] IV Last administered on 02/10/18at 05:43; Start 02/08/18 at 12:00; Stop 02/11/18 at 12:42; Status DC Sodium Bicarbonate (Sodium Bicarb Adult 8.4% Syr) 50 meq 1X ONCE IV Last administered on 02/08/18at 12:08; Start 02/08/18 at 12:30; Stop 02/08/18 at 12:31; Status DC Albuterol/ Ipratropium (Duoneb) 3 ml STK-MED ONCE .ROUTE ; Start 02/08/18 at 19: 39; Stop 02/08/18 at 19:40; Status DC Neostigmine Methylsulfate (Neostigmine Methylsulfate) 5 mg STK-MED ONCE .ROUTE ; Start 02/06/18 at 12:00; Stop 02/09/18 at 06:52; Status DC Lidocaine HCl (Lidocaine HCl 2% Abboject) 100 mg STK-MED ONCE .ROUTE ; Start 02/06/18 at 12:00; Stop 02/09/18 at 06:52; Status DC Phenylephrine HCl (PHENYLEPHRINE in 0.9% NACL PF) 2 mg STK-MED ONCE IV ; Start 02/06/18 at 12:00; Stop 02/09/18 at 06:52; Status DC Propofol (Diprivan) 200 mg STK-MED ONCE IV ; Start 02/06/18 at 12:00; Stop at 06:52; Status DC Glycopyrrolate (Robinul) 1 mg STK-MED ONCE .ROUTE ; Start 02/06/18 at 12:00; Stop 02/09/18 at 06:52; Status DC Dexamethasone Sodium Phosphate (Decadron) 20 mg STK-MED ONCE .ROUTE ; Start 02/06 at 12:00; Stop 02/09/18 at 06:52; Status DC Metoprolol Tartrate (Lopressor Vial) 5 mg PRN Q6HRS PRN IVP TACHYCARDIA; Start 02/09/18 at 12:45 Quetiapine Fumarate (SEROquel) 50 mg QHS PO Last administered on 02/09/18at 20:53 ; Start 02/09/18 at 21:00; Stop 02/10/18 at 14:54; Status DC Metronidazole 100 ml @ 100 mls/hr Q12H IV Last administered on 02/11/18at 02:01 ; Start 02/10/18 at 14:00; Stop 02/11/18 at 12:42; Status DC Dextrose/Sodium Chloride 1,000 ml @ 75 mls/hr [id number] IV Last administered on 02/11/18at 03:35; Start 02/10/18 at 14:15; Stop 02/11/18 at 12:42; Status DC Quetiapine Fumarate (SEROquel) 50 mg BID PO Last administered on 02/11/18at 20:28 ; Start 02/10/18 at 15:00; Stop 02/12/18 at 08:42; Status DC Dextrose 1,000 ml @ 100 mls/hr Q10H IV Last administered on 02/12/18at 05:41; Start 02/11/18 at 10:45; Stop 02/12/18 at 08:42; Status DC Doxycycline Hyclate (Vibra-Tab) 100 mg BID PO Last administered on 02/12/18at 08 :20; Start 02/11/18 at 11:30; Stop 02/12/18 at 16:05; Status DC Metronidazole (Flagyl) 500 mg Q12HR PO Last administered on 02/12/18at 08:21; Start 02/11/18 at 14:00; Stop 02/12/18 at 16:05; Status DC Amiodarone HCl (Cordarone) 100 mg DAILY PO Last administered on 02/15/18at 09:56 ; Start 02/11/18 at 14:00 Atorvastatin Calcium (Lipitor) 10 mg HS PO Last administered on 02/14/18at 21:09 ; Start 02/11/18 at 21:00 Metoprolol Succinate (Toprol Xl) 25 mg QPM PO Last administered on 02/14/18at 18 :00; Start 02/11/18 at 18:00 Ciprofloxacin (Cipro) 500 mg BID PO ; Start 02/12/18 at 21:00; Stop 02/12/18 at 21:00; Status DC Barium Sulfate (Varibar Thin Liquid Apple) 148 gm 1X ONCE PO Last administered on 02/12/18at 13:30; Start 02/12/18 at 13:30; Stop 02/12/18 at 13:31 ; Status DC Amoxicillin/ Clavulanate Potassium (Augmentin 875/ 125mg) 1 tab BID PO Last administered on 02/15/18at 09:55; Start 02/12/18 at 17:00 Polyethylene Glycol (miraLAX PACKET) 17 gm DAILY PO Last administered on at 17:48; Start 02/12/18 at 18:00; Stop 02/12/18 at 18:00; Status DC Polyethylene Glycol (miraLAX PACKET) 17 gm PRN DAILY PRN PO CONSTIPATION Last administered on 02/13/18at 09:56; Start 02/12/18 at 18:00; Stop 02/13/18 at 15:21 ; Status DC Albuterol/ Ipratropium (Duoneb) 3 ml PRN Q2HRS PRN NEB SHORTNESS OF BREATH; Start 02/13/18 at 01:15; Status UNV Albuterol/ Ipratropium (Duoneb) 3 ml Q4HRS NEB Last administered on 02/15/18at 11:56; Start 02/13/18 at 04:00 Senna/Docusate Sodium (Senna Plus) 1 tab BID PO Last administered on 02/13/18at 21:22; Start 02/13/18 at 13:00; Stop 02/14/18 at 12:30; Status DC Docusate Sodium (Colace) 100 mg BID PO ; Start 02/13/18 at 13:00; Status Cancel Magnesium Hydroxide (Milk Of Magnesia) 2,400 mg BID PO Last administered on 05/23at 21:21; Start 02/13/18 at 13:00; Stop 02/14/18 at 12:30; Status DC Lactulose (Lactulose) 20 gm PRN Q12HR PRN PO CONSTIPATION; Start 02/13/18 at 12 :30 Bisacodyl (Dulcolax Supp) 10 mg PRN DAILY PRN [place] CONSTIPATION; Start 02/13/18 at 12:30 Amino Acids/ Glycerin/ Electrolytes 1,000 ml @ 80 mls/hr [id number] IV Last administered on 02/13/18at 13:36; Start 02/13/18 at 12:30; Stop 02/14/18 at 18:18 ; Status DC Polyethylene Glycol (miraLAX PACKET) 17 gm BID PO Last administered on at 21:21; Start 02/13/18 at 16:00; Stop 02/14/18 at 12:30; Status DC Furosemide (Lasix) 10 mg MoWeFr PO Last administered on 02/15/18at 09:59; Start 02/15/18 at 09:00 Tamsulosin HCl (Flomax) 0.4 mg QHS PO Last administered on 02/14/18at 21:09; Start 02/14/18 at 21:00 Active Scripts Active Reported Ferrous Sulfate 325 Mg Tablet 1 Tab PO DAILY Super B Complex-Vitamin C (B Complex With Vitamin C) 1 Each Tablet 1 Each PO Warfarin Sodium 5 Mg Tablet 7.5 Mg PO QTUTHSA Amiodarone Hcl 200 Mg Tablet 100 Mg PO DAILY Furosemide 20 Mg Tablet 10 Mg PO QMWF Metoprolol Succinate ( Xl ) (Metoprolol Succinate) 25 Mg Tab.er.24h 1 Tab PO QPM Calcitriol 0.25 Mcg Capsule 0.25 Mcg PO QM-W-F Warfarin Sodium 5 Mg Tablet 5 Mg PO QMWF Loratadine 10 Mg Tablet 10 Mg PO QHS Tamsulosin Hcl 0.4 Mg Cap.er.24h 0.4 Mg PO QHS Atorvastatin Calcium 10 Mg Tablet 10 Mg PO HS Duoneb 0.5-3(2.5) Mg/3 Ml (Albuterol/Ipratropium) 3 Ml Ampul.neb 3 Ml IH TID PRN Flonase (Fluticasone Propionate) 16 Gm [place].susp 2 [place] NS BID Vitals/I & O Vital Sign - Last 24 Hours 02/14/18 02/14/18 02/14/18 02/14/18 15:00 16:57 18:00 19:00 Temp 98.3 98.3 98.3 98.3 Pulse 59 59 94 Resp 20 18 B/P (MAP) 140/61 (87) 140/61 185/89 (121) Pulse Ox 94 94 93 O2 Delivery Room Air Room Air Nasal Cannula O2 Flow Rate 3.0 02/14/18 02/14/18 02/14/18 02/15/18 19:55 20:21 23:00 03:00 Temp 98.6 98.8 98.6 98.8 Pulse 78 82 Resp 18 18 B/P (MAP) 157/76 (103) 145/75 (98) Pulse Ox 94 96 96 O2 Delivery Nasal Cannula Room Air Nasal Cannula Nasal Cannula O2 Flow Rate 3.0 3.0 4.0 02/15/18 02/15/18 02/15/18 02/15/18 07:00 07:35 09:56 11:00 Temp 98.4 98.7 98.4 98.7 Pulse 76 76 75 Resp 20 20 B/P (MAP) 145/66 (92) 145/66 115/66 (82) Pulse Ox 94 94 96 O2 Delivery Nasal Cannula Nasal Cannula Nasal Cannula O2 Flow Rate 2.0 2.0 2.0 02/15/18 11:57 Pulse Ox 94 O2 Delivery Nasal Cannula O2 Flow Rate 2.0 Intake and Output 02/14/18 02/14/18 02/15/18 15:00 23:00 07:00 Intake Total 300 ml 1000 ml 1780 ml Output Total 300 ml 400 ml 550 ml Balance 0 ml 600 ml 1230 ml RICO MICHEL MD Feb 15, 2018 14:12
[2018-02-15 15:00] VITALS: BP 143/62
[2018-02-15] MEDS: ALPRAZolam 0.5 MG TABLET PO PRN (15:32)
--- NOTE | 2018-02-15 15:41 | PDOC ---
PROGRESS NOTES Assessment Assessment IMPRESSION: Metabolic encephalopathy. Confusion. Dysphagia. Leukocytosis. UTI. AFib. CAD. CHF. HTN HLD. DM? Renal failure. Over weight. Skin basal cell cancer. Elevated ESR. RECOMMENDATIONS/PLAN: Wait for repeat swallow test. Brain MRI w/o contrast, if his pacemaker is MRI compatible. Treat medical diseases. Past Medical History Cardiovascular: AFIB, CAD, CHF, HTN, Hyperlipidemia, Other (carotid stenosis, peripheral vascular disease) Pulmonary: COPD, Pneumonia, Other (sleep apnea) GI: Constipation, Hemorrhoids, Other (colonic polyps) Heme/Onc: Anemia NOS Psych: Anxiety, Depression Musculoskeletal: Osteoarthritis Renal/: Chronic renal insuff, Benign prostatic enlarg., Other (erectile dysfunction) Dermatology: Basal cell Past Surgical History Pacemaker, Cholecystectomy, Cataract Removal, Hernia Repair, Other (rectal fistula repair, right index finger) Family History Cancer Social History , retired, no alcohol or tobacco ALLERGY: NKDA MEDICATIONS: Refer to MAR REVIEW OF SYSTEMS: Constitutional: No malnutrition, weight loss, cachexia. Head: No traumatic brain or head injury. Skin: No edema, or rash. Ear: No infection. Eyes: No vision loss, or diplopia. Nose: No bleeding or purulent discharges. Hearing: Hearing loss. Neck: No injury. Cardiac: CAD, AFib, Pacemaker Placement, HTN, HLD Pulmonary: No COPD. GI: gallstone. Urinary/genital: UTI. Endocrine: Diabetes Mellitus? obesity. Skeletomuscular: No muscular atrophy, deformity. Neurological: see HP. Psychiatric: Denies drug use/abuse. Otherwise, not [id number] review of systems. PHYSICAL EXAMINATION: General appearance in acute distress. HEENT: Normocephalic and nontraumatic. Eyes, nose, ears, and throat are unremarkable. Hearing decrease. Neck is supple. No lymphadenopathy. No bruits are heard over the carotid artery. No Crepitus. Cardiovascular: S1, S2, irregular rate and rhythm. Pulmonary: Clear to auscultation bilaterally. Abdomen: Bowel sounds are positive. Abdomen is soft, nontender, and nondistended. Extremities: No rash, lesions, or edema. No restriction of range of motion NEUROLOGICAL EXAMINATION: Awake. Oriented partially to time, place and person. PERRL. EOMI. CN: no focal findings. Muscle tone: within normal. Muscle strength: 4+ DTR: 1 Plantar reflex: Neutral response bilaterally Gait: Able to walk with a walker. Sensory exam: no abnormal findings. No acute cerebellar signs elicited. F-T-N test fine. Horizontal nystagmus elicited. Objective Objective Vital Signs Date Time Temp Pulse Resp B/P (MAP) Pulse Ox O2 Delivery O2 Flow Rate FiO2 02/15/18 11:57 94 Nasal Cannula 2.0 02/15/18 11:00 98.7 75 20 115/66 (82) 98.7 Intake and Output 02/15/18 07:00 Intake Total 3080 ml Output Total 1250 ml Balance 1830 ml Intake Oral 2080 ml IV Total 1000 ml Output Urine Total 1250 ml # Bowel Movements 7 Vitals Signs Vitals VS - Last 72 Hours, by Label Date Time Temp Pulse Resp B/P (MAP) Pulse Ox O2 Delivery O2 Flow Rate FiO2 02/15/18 11:57 94 Nasal Cannula 2.0 02/15/18 11:00 98.7 75 20 115/66 (82) 96 Nasal Cannula 2.0 98.7 02/15/18 09:56 76 145/66 02/15/18 07:35 94 Nasal Cannula 2.0 02/15/18 07:00 98.4 76 20 145/66 (92) 94 Nasal Cannula 2.0 98.4 02/15/18 03:00 98.8 82 18 145/75 (98) 96 Nasal Cannula 4.0 98.8 02/14/18 23:00 98.6 78 18 157/76 (103) 96 Nasal Cannula 3.0 98.6 02/14/18 20:21 94 Room Air 02/14/18 19:55 Nasal Cannula 3.0 02/14/18 19:00 98.3 94 18 185/89 (121) 93 Nasal Cannula 3.0 98.3 02/14/18 18:00 59 140/61 02/14/18 16:57 94 Room Air 02/14/18 15:00 98.3 59 20 140/61 (87) 94 Room Air 98.3 02/14/18 13:15 Nasal Cannula 4.0 02/14/18 11:00 97.7 69 20 152/69 (96) 96 Nasal Cannula 4.0 97.7 02/14/18 08:24 68 150/49 02/14/18 08:00 Nasal Cannula 4.0 02/14/18 07:48 97 Nasal Cannula 4.0 02/14/18 07:00 98.1 70 20 138/60 (86) 96 Nasal Cannula 4.0 98.1 Laboratory Laboratory Laboratory Tests Test 02/15/18 03:40 02/15/18 03:45 Sodium Level 144 mmol/L (136-145) Potassium Level 4.7 mmol/L (3.5-5.1) Chloride Level 113 mmol/L (98-107) Carbon Dioxide Level 29 mmol/L (21-32) Anion Gap 2 (6-14) Blood Urea Nitrogen 41 mg/dL (8-26) Creatinine 1.3 mg/dL (0.7-1.3) Estimated GFR (Cockcroft-Gault) 53.7 Glucose Level 121 mg/dL (70-99) Calcium Level 10.0 mg/dL (8.5-10.1) White Blood Count 20.3 x10^3/uL (4.0-11.0) Red Blood Count 2.64 x10^6/uL (4.30-5.70) Hemoglobin 8.4 g/dL (13.0-17.5) Hematocrit 25.7 % (39.0-53.0) Mean Corpuscular Volume 98 fL (79-100) Mean Corpuscular Hemoglobin 32 pg (25-35) Mean Corpuscular Hemoglobin Concent 33 g/dL (31-37) Red Cell Distribution Width 15.1 % (11.5-14.5) Platelet Count 141 x10^3/uL (140-400) Neutrophils (%) (Auto) 88 % (31-73) Lymphocytes (%) (Auto) 4 % (24-48) Monocytes (%) (Auto) 6 % (0-9) Eosinophils (%) (Auto) 1 % (0-3) Basophils (%) (Auto) 1 % (0-3) Neutrophils # (Auto) 17.9 x10^3uL (1.8-7.7) Lymphocytes # (Auto) 0.9 x10^3/uL (1.0-4.8) Monocytes # (Auto) 1.3 x10^3/uL (0.0-1.1) Eosinophils # (Auto) 0.1 x10^3/uL (0.0-0.7) Basophils # (Auto) 0.1 x10^3/uL (0.0-0.2) Microbiology 02/04/18 Blood Culture - Final, Complete NO GROWTH AFTER 5 DAYS 02/08/18 - Final, Complete 02/08/18 - Final, Complete 02/08/18 - Final, Complete 02/08/18 - Final, Complete 02/08/18 Gram Stain Evaluation - Final, Complete 02/08/18 Sputum Culture - Final, Complete 02/08/18 Sputum Result 1 - Final, Complete 02/08/18 Sputum Result 2 - Final, Complete 02/08/18 Antimicrobic Susceptibility - Final, Complete Medication Medications Current Medications Alprazolam (Xanax) 0.5 mg PRN Q8HRS PRN PO ANXIETY / AGITATION; Start 02/15/18 at 15:15 Furosemide (Lasix) 10 mg MoWeFr PO Last administered on 02/15/18at 09:59; Start 02/15/18 at 09:00 Tamsulosin HCl (Flomax) 0.4 mg QHS PO Last administered on 02/14/18at 21:09; Start 02/14/18 at 21:00 Comment Review of Relevant I have reviewed the following items aron (where applicable) has been applied. ELBERT SCRUGGS MD Feb 15, 2018 15:41
[2018-02-15] MEDS: METOPROLOL SUCC 24HR ER 25 MG TAB.ER.24H. PO SCH (17:29)
[2018-02-15] MEDS ORDERED: WARFARIN 7.5 MG TABLET. PO ONE (18:30)
[2018-02-15 19:00] VITALS: BP 152/65
[2018-02-15] MEDS: TAMSULOSIN 0.4 MG CAP.ER.24H. PO SCH (20:45)
[2018-02-15] MEDS: ATORVASTATIN CALCIUM 10 MG TABLET. PO SCH (20:45)
[2018-02-15 23:00] VITALS: BP 138/69
[2018-02-16] MEDS: IPRATRPIUM/ALBUTEROL 0.5/2.5MG 3 ML NEBU. NEB SCH ×4 (00:01→11:46)
[2018-02-16] MEDS: ALPRAZolam 0.5 MG TABLET PO PRN (00:48)
[2018-02-16 03:00] VITALS: BP 132/62
[2018-02-16] MEDS: diphenhydrAMINE HCL 25 MG CAPSULE PO PRN (04:13)
[2018-02-16 04:26] LABS: PROTHROMBIN TIME PATIENT 15.4 SEC (11.7-14.0)
[2018-02-16 07:00] VITALS: BP 147/72
[2018-02-16 07:45] LABS: HEMATOCRIT 27.3 % (39.0-53.0); HEMOGLOBIN 8.8 g/dL (13.0-17.5); RED BLOOD COUNT 2.78 x10^6/uL (4.30-5.70); RED CELL DISTRIBUTION WIDTH 14.9 % (11.5-14.5); WHITE BLOOD COUNT 14.9 x10^3/uL (4.0-11.0)
[2018-02-16] MEDS: AMIODARONE HCL 200 MG TABLET. PO SCH (08:59)
[2018-02-16] MEDS: LACTOBACILLUS RHAMNOSUS GG 1 CAPSULE. PO SCH (08:59)
[2018-02-16] MEDS ORDERED: CEFPODOXIME PROXETIL 100 MG TABLET. PO SCH (09:00)
--- NOTE | 2018-02-16 09:04 | PDOC ---
Infectious Disease Note Vital Sign Vital Signs Vital Signs Date Time Temp Pulse Resp B/P (MAP) Pulse Ox O2 Delivery O2 Flow Rate FiO2 02/16/18 08:59 83 147/72 02/16/18 07:40 97 Nasal Cannula 2.5 02/16/18 07:00 97.3 18 97.3 Labs Lab Laboratory Tests Test 02/15/18 17:00 02/16/18 03:45 Prothrombin Time 15.0 SEC (11.7-14.0) 15.4 SEC (11.7-14.0) Prothromb Time International Ratio 1.2 (0.8-1.1) 1.3 (0.8-1.1) Lactic Acid Level 0.6 mmol/L (0.4-2.0) White Blood Count 14.9 x10^3/uL (4.0-11.0) Red Blood Count 2.78 x10^6/uL (4.30-5.70) Hemoglobin 8.8 g/dL (13.0-17.5) Hematocrit 27.3 % (39.0-53.0) Mean Corpuscular Volume 98 fL (79-100) Mean Corpuscular Hemoglobin 32 pg (25-35) Mean Corpuscular Hemoglobin Concent 32 g/dL (31-37) Red Cell Distribution Width 14.9 % (11.5-14.5) Platelet Count 172 x10^3/uL (140-400) Micro Microbiology 02/04/18 Blood Culture - Final, Complete NO GROWTH AFTER 5 DAYS 02/08/18 - Final, Complete 02/08/18 - Final, Complete 02/08/18 - Final, Complete 02/08/18 - Final, Complete 02/08/18 Gram Stain Evaluation - Final, Complete 02/08/18 Sputum Culture - Final, Complete 02/08/18 Sputum Result 1 - Final, Complete 02/08/18 Sputum Result 2 - Final, Complete 02/08/18 Antimicrobic Susceptibility - Final, Complete Objective Assessment Leukocytosis likely reactive Respiratory infection S/P Cholecystectomy CBD stone s/p ERCP Plan Plan of Care change augmentin to vantin ok to d/c wbc on next d/w in detail d/w Surgery MIRNA WHITNEY MD Feb 16, 2018 09:04
--- NOTE | 2018-02-16 09:35 | PDOC ---
SURGICAL PROGRESS NOTE Subjective incisional pain to epigastric site tolerating diet Vital Signs Vital Signs Date Time Temp Pulse Resp B/P (MAP) Pulse Ox O2 Delivery O2 Flow Rate FiO2 02/16/18 08:59 83 147/72 02/16/18 07:40 97 Nasal Cannula 2.5 02/16/18 07:00 97.3 18 97.3 I&O Intake and Output 02/16/18 07:00 Intake Total 980 ml Output Total 300 ml Balance 680 ml Intake Oral 980 ml Output Urine Total 300 ml # Voids 2 # Bowel Movements 1 General: Alert, Oriented X3, Cooperative, No acute distress Abdomen: Soft, Other (incisions healing, some ecchymosis to epigastric site ) Labs Laboratory Tests Test 02/15/18 03:40 02/15/18 03:45 02/15/18 17:00 02/16/18 03:45 Sodium Level 144 mmol/L (136-145) Potassium Level 4.7 mmol/L (3.5-5.1) Chloride Level 113 mmol/L (98-107) Carbon Dioxide Level 29 mmol/L (21-32) Anion Gap 2 (6-14) Blood Urea Nitrogen 41 mg/dL (8-26) Creatinine 1.3 mg/dL (0.7-1.3) Estimated GFR (Cockcroft-Gault) 53.7 Glucose Level 121 mg/dL (70-99) Calcium Level 10.0 mg/dL (8.5-10.1) White Blood Count 20.3 x10^3/uL (4.0-11.0) 14.9 x10^3/uL (4.0-11.0) Red Blood Count 2.64 x10^6/uL (4.30-5.70) 2.78 x10^6/uL (4.30-5.70) Hemoglobin 8.4 g/dL (13.0-17.5) 8.8 g/dL (13.0-17.5) Hematocrit 25.7 % (39.0-53.0) 27.3 % (39.0-53.0) Mean Corpuscular Volume 98 fL (79-100) 98 fL (79-100) Mean Corpuscular Hemoglobin 32 pg (25-35) 32 pg (25-35) Mean Corpuscular Hemoglobin Concent 33 g/dL (31-37) 32 g/dL (31-37) Red Cell Distribution Width 15.1 % (11.5-14.5) 14.9 % (11.5-14.5) Platelet Count 141 x10^3/uL (140-400) 172 x10^3/uL (140-400) Neutrophils (%) (Auto) 88 % (31-73) Lymphocytes (%) (Auto) 4 % (24-48) Monocytes (%) (Auto) 6 % (0-9) Eosinophils (%) (Auto) 1 % (0-3) Basophils (%) (Auto) 1 % (0-3) Neutrophils # (Auto) 17.9 x10^3uL (1.8-7.7) Lymphocytes # (Auto) 0.9 x10^3/uL (1.0-4.8) Monocytes # (Auto) 1.3 x10^3/uL (0.0-1.1) Eosinophils # (Auto) 0.1 x10^3/uL (0.0-0.7) Basophils # (Auto) 0.1 x10^3/uL (0.0-0.2) Prothrombin Time 15.0 SEC (11.7-14.0) 15.4 SEC (11.7-14.0) Prothromb Time International Ratio 1.2 (0.8-1.1) 1.3 (0.8-1.1) Lactic Acid Level 0.6 mmol/L (0.4-2.0) Laboratory Tests Test 02/15/18 17:00 02/16/18 03:45 Prothrombin Time 15.0 SEC (11.7-14.0) 15.4 SEC (11.7-14.0) Prothromb Time International Ratio 1.2 (0.8-1.1) 1.3 (0.8-1.1) Lactic Acid Level 0.6 mmol/L (0.4-2.0) White Blood Count 14.9 x10^3/uL (4.0-11.0) Red Blood Count 2.78 x10^6/uL (4.30-5.70) Hemoglobin 8.8 g/dL (13.0-17.5) Hematocrit 27.3 % (39.0-53.0) Mean Corpuscular Volume 98 fL (79-100) Mean Corpuscular Hemoglobin 32 pg (25-35) Mean Corpuscular Hemoglobin Concent 32 g/dL (31-37) Red Cell Distribution Width 14.9 % (11.5-14.5) Platelet Count 172 x10^3/uL (140-400) Assessment/Plan s/p vilma d/w ID--abx changed, WBC down today, afebrile irregular tachy last night--will have cardiac eval plans for possible PP today YOLA GROVE APRN Feb 16, 2018 09:35
--- NOTE | 2018-02-16 10:57 | PDOC ---
Subjective: Subjective: has questions about Lasix and Coumadin. Objective: Vital Signs: Vital Signs Date Time Temp Pulse Resp B/P (MAP) Pulse Ox O2 Delivery O2 Flow Rate FiO2 02/16/18 08:59 83 147/72 02/16/18 08:10 Room Air 02/16/18 07:40 97 2.5 02/16/18 07:00 97.3 18 97.3 Labs: Laboratory Tests Test 02/15/18 17:00 02/16/18 03:45 Prothrombin Time 15.0 SEC 15.4 SEC Prothromb Time International Ratio 1.2 1.3 Lactic Acid Level 0.6 mmol/L White Blood Count 14.9 x10^3/uL Red Blood Count 2.78 x10^6/uL Hemoglobin 8.8 g/dL Hematocrit 27.3 % Mean Corpuscular Volume 98 fL Mean Corpuscular Hemoglobin 32 pg Mean Corpuscular Hemoglobin Concent 32 g/dL Red Cell Distribution Width 14.9 % Platelet Count 172 x10^3/uL PE: GEN: NAD, playing dominos LUNGS: clear, NC HEART: RRR ABD: S/ND/NT NEURO/PSYCH: A & O 3 A/P: Choledocholithiasis s/p ERCP Leukocytosis - better, atbx per ID -- DC per primary. D/w RN re: 's questions, defer to primary. BI WILCOX Feb 16, 2018 10:56
[2018-02-16 11:00] VITALS: BP 143/72
--- NOTE | 2018-02-16 11:01 | PDOC ---
PULMONARY PROGRESS NOTES Subjective sob cough, better, on home 02, w activity and qhs, no pain Vitals Vital Signs Date Time Temp Pulse Resp B/P (MAP) Pulse Ox O2 Delivery O2 Flow Rate FiO2 02/16/18 08:59 83 147/72 02/16/18 08:10 Room Air 02/16/18 07:40 97 2.5 02/16/18 07:00 97.3 18 97.3 ROS: No Nausea General: Alert, No acute distress HEENT: Other (nc at perrl nose throat clear) Lungs: Clear Cardiovascular: Other (irreg irreg) Abdomen: Soft, Non-tender, Other (DISTENDED) Neuro Exam: Alert Extremities: No Edema Skin: Warm Labs Laboratory Tests Test 02/15/18 03:40 02/15/18 03:45 02/15/18 17:00 02/16/18 03:45 Sodium Level 144 mmol/L (136-145) Potassium Level 4.7 mmol/L (3.5-5.1) Chloride Level 113 mmol/L (98-107) Carbon Dioxide Level 29 mmol/L (21-32) Anion Gap 2 (6-14) Blood Urea Nitrogen 41 mg/dL (8-26) Creatinine 1.3 mg/dL (0.7-1.3) Estimated GFR (Cockcroft-Gault) 53.7 Glucose Level 121 mg/dL (70-99) Calcium Level 10.0 mg/dL (8.5-10.1) White Blood Count 20.3 x10^3/uL (4.0-11.0) 14.9 x10^3/uL (4.0-11.0) Red Blood Count 2.64 x10^6/uL (4.30-5.70) 2.78 x10^6/uL (4.30-5.70) Hemoglobin 8.4 g/dL (13.0-17.5) 8.8 g/dL (13.0-17.5) Hematocrit 25.7 % (39.0-53.0) 27.3 % (39.0-53.0) Mean Corpuscular Volume 98 fL (79-100) 98 fL (79-100) Mean Corpuscular Hemoglobin 32 pg (25-35) 32 pg (25-35) Mean Corpuscular Hemoglobin Concent 33 g/dL (31-37) 32 g/dL (31-37) Red Cell Distribution Width 15.1 % (11.5-14.5) 14.9 % (11.5-14.5) Platelet Count 141 x10^3/uL (140-400) 172 x10^3/uL (140-400) Neutrophils (%) (Auto) 88 % (31-73) Lymphocytes (%) (Auto) 4 % (24-48) Monocytes (%) (Auto) 6 % (0-9) Eosinophils (%) (Auto) 1 % (0-3) Basophils (%) (Auto) 1 % (0-3) Neutrophils # (Auto) 17.9 x10^3uL (1.8-7.7) Lymphocytes # (Auto) 0.9 x10^3/uL (1.0-4.8) Monocytes # (Auto) 1.3 x10^3/uL (0.0-1.1) Eosinophils # (Auto) 0.1 x10^3/uL (0.0-0.7) Basophils # (Auto) 0.1 x10^3/uL (0.0-0.2) Prothrombin Time 15.0 SEC (11.7-14.0) 15.4 SEC (11.7-14.0) Prothromb Time International Ratio 1.2 (0.8-1.1) 1.3 (0.8-1.1) Lactic Acid Level 0.6 mmol/L (0.4-2.0) Laboratory Tests Test 02/15/18 17:00 02/16/18 03:45 Prothrombin Time 15.0 SEC (11.7-14.0) 15.4 SEC (11.7-14.0) Prothromb Time International Ratio 1.2 (0.8-1.1) 1.3 (0.8-1.1) Lactic Acid Level 0.6 mmol/L (0.4-2.0) White Blood Count 14.9 x10^3/uL (4.0-11.0) Red Blood Count 2.78 x10^6/uL (4.30-5.70) Hemoglobin 8.8 g/dL (13.0-17.5) Hematocrit 27.3 % (39.0-53.0) Mean Corpuscular Volume 98 fL (79-100) Mean Corpuscular Hemoglobin 32 pg (25-35) Mean Corpuscular Hemoglobin Concent 32 g/dL (31-37) Red Cell Distribution Width 14.9 % (11.5-14.5) Platelet Count 172 x10^3/uL (140-400) Medications Active Scripts Medications Dose Route/Sig Max Daily Dose Days Date Category Ferrous Sulfate 325 Mg Tablet 1 Tab PO DAILY 01/28/18 Reported Super B Complex-Vitamin C (B Complex With Vitamin C) 1 Each Tablet 1 Each PO 12/04/17 Reported Warfarin Sodium 5 Mg Tablet 7.5 Mg PO QTUTHSA 06/10/17 Reported Amiodarone Hcl 200 Mg Tablet 100 Mg PO DAILY 06/10/17 Reported Furosemide 20 Mg Tablet 10 Mg PO QMWF 06/10/17 Reported Metoprolol Succinate ( Xl ) (Metoprolol Succinate) 25 Mg Tab.er.24h 1 Tab PO QPM 11/13/16 Reported Calcitriol 0.25 Mcg Capsule 0.25 Mcg PO QM-W-F 05/24/16 Reported Warfarin Sodium 5 Mg Tablet 5 Mg PO QMWF 05/24/16 Reported Loratadine 10 Mg Tablet 10 Mg PO QHS 10/16/14 Reported Tamsulosin Hcl 0.4 Mg Cap.er.24h 0.4 Mg PO QHS 10/16/14 Reported Atorvastatin Calcium 10 Mg Tablet 10 Mg PO HS 10/16/14 Reported Duoneb 0.5-3(2.5) Mg/3 Ml (Albuterol/Ipratropium) 3 Ml Ampul.neb 3 Ml IH TID PRN 07/24/14 Reported Flonase (Fluticasone Propionate) 16 Gm [place].susp 2 [place] NS BID 01/06/14 Reported Comments CXR REVIEWED 02/09 ? Right basal atelectasis Impression . 1. Acute/Chronic resp failure, expected status post laparoscopic cholecystectomy. 02/03 2. Chronic obstructive pulmonary disease of the chronic bronchitic type. 3. Chronic atrial fibrillation. 4. Obstructive sleep apnea. 5. Common Bile duct stone S/P ERCP 02/05 6. JAYDON/CKD 7. Metabolic acidosis, relative ( he is a CO2 retainer), resolved 8. Postoperative delirium. resolved 9. Klebsiella Oxytoca bronchitis/ WAS on augmentin. changed to Ceftin by ID 02/05 ERCP with sphincterotomy/stone extraction Meds MAC/JEMALETT Pre-op dx jaundice/abnl IOC/choledocholithiasis Post-op dx choledocholithiasis s/p sphincterotomy/stone extraction large khalida-ampullary diverticulum Plan serial labs monitor for complications possibly advance diet in am if no adverse events Plan . pulmonary vasquez stable oxygen Abx per ID bronchodilator CONTINUE POST OP CARE increase activity IS discussed w pt ,rn and his stable for dc pulmonary vasquez. will see prn ALIYAH CALLE MD Feb 16, 2018 11:01
--- NOTE | 2018-02-16 11:52 | PDOC ---
Renal-Progress Notes Subjective Notes Notes NONE History of Present Illness Hx of present illness STABLE Vitals Vitals Vital Signs Date Time Temp Pulse Resp B/P (MAP) Pulse Ox O2 Delivery O2 Flow Rate FiO2 02/16/18 11:46 97 Nasal Cannula 2.5 02/16/18 08:59 83 147/72 02/16/18 07:00 97.3 18 97.3 Weight Weight [ ] I.O. Intake and Output Intake and Output 02/16/18 07:00 Intake Total 980 ml Output Total 300 ml Balance 680 ml Intake Oral 980 ml Output Urine Total 300 ml # Voids 2 # Bowel Movements 1 Labs Labs Laboratory Tests Test 02/15/18 17:00 02/16/18 03:45 Prothrombin Time 15.0 SEC (11.7-14.0) 15.4 SEC (11.7-14.0) Prothromb Time International Ratio 1.2 (0.8-1.1) 1.3 (0.8-1.1) Lactic Acid Level 0.6 mmol/L (0.4-2.0) White Blood Count 14.9 x10^3/uL (4.0-11.0) Red Blood Count 2.78 x10^6/uL (4.30-5.70) Hemoglobin 8.8 g/dL (13.0-17.5) Hematocrit 27.3 % (39.0-53.0) Mean Corpuscular Volume 98 fL (79-100) Mean Corpuscular Hemoglobin 32 pg (25-35) Mean Corpuscular Hemoglobin Concent 32 g/dL (31-37) Red Cell Distribution Width 14.9 % (11.5-14.5) Platelet Count 172 x10^3/uL (140-400) Creatine Kinase 26 U/L (39-308) Micro Micro Microbiology 02/04/18 Blood Culture - Final, Complete NO GROWTH AFTER 5 DAYS 02/08/18 - Final, Complete 02/08/18 - Final, Complete 02/08/18 - Final, Complete 02/08/18 - Final, Complete 02/08/18 Gram Stain Evaluation - Final, Complete 02/08/18 Sputum Culture - Final, Complete 02/08/18 Sputum Result 1 - Final, Complete 02/08/18 Sputum Result 2 - Final, Complete 02/08/18 Antimicrobic Susceptibility - Final, Complete Review of Systems Constitutional: yes: alert, oriented Ears/Nose/Throat: Yes: no symptom reported Eyes: Yes: no symptom reported Pulmonary: Yes no symptom reported Cardiovascular: Yes no symptom reported Gastrointestional: Yes: no symptom reported Genitourinary: Yes: no symptom reported Musculoskeletal: Yes: no symptom reported Skin: Yes no symptom reported Psychiatric/Neurological: Yes: no symptom reported Endocrine: Yes: no symptom reported Physical Exam General Appearance: no apparent distress Respiratory: bilateral CTA Heart: S1S2 Abdomen: soft, bowel sounds present Genitourinary: bladder flat Extremities: pulses present Neurology: alert, follow commands, other (drowsy/groggy after ERCP) Musculoskeletal: Osteoarthritis Assessment Assessment IMP JAYDON-ESSENTIALLY RESOLVED HYPERNATREMIA-RESOLVED S/P LAP CHOLY AND THEN ERCP PLAN WILL SIGN OFF PLEASE CALL IF NEEDED MICHELLE WHYTE MD Feb 16, 2018 11:52
--- NOTE | 2018-02-16 11:59 | PDOC ---
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 Supportive care talked to swallow eval and pt and , would like to find something honey thickened pt may wanna try add PPN dc stool softner labs tmr Thanks for consulting us, we'll follow along with you FULL CODE off sitter History of Present Illness History of Present Illness WBC down to 14 from 20 ID has seen, appreciate their service, okay for discharge and by mouth Vantin But unfortunately some arrhythmia overnight question aron Primary service has consulted cardiology-no order in yet though Family at bedside Plan: I have readied the paperwork yesterday, by mouth Vantin on discharge We'll await cardiology Rounds if primary service consults cardiology Otherwise mentation is better No Percocet and Seroquel please, this caused him altered mental status Vitals Vitals Vital Signs Date Time Temp Pulse Resp B/P (MAP) Pulse Ox O2 Delivery O2 Flow Rate FiO2 02/16/18 11:46 97 Nasal Cannula 2.5 02/16/18 08:59 83 147/72 02/16/18 07:00 97.3 18 97.3 Physical Exam General: Alert, Oriented X3, Cooperative, No acute distress Heart: Regular rate, Normal S1, Normal S2, No murmurs Lungs: Clear Abdomen: Soft, Other (incisions healing, some ecchymosis to epigastric site ) Extremities: No clubbing, No cyanosis Skin: No breakdown, No significant lesion, Other (postop wound, sutures looking good, no tenderness around that site) Labs LABS Laboratory Tests Test 02/15/18 17:00 02/16/18 03:45 Prothrombin Time 15.0 SEC (11.7-14.0) 15.4 SEC (11.7-14.0) Prothromb Time International Ratio 1.2 (0.8-1.1) 1.3 (0.8-1.1) Lactic Acid Level 0.6 mmol/L (0.4-2.0) White Blood Count 14.9 x10^3/uL (4.0-11.0) Red Blood Count 2.78 x10^6/uL (4.30-5.70) Hemoglobin 8.8 g/dL (13.0-17.5) Hematocrit 27.3 % (39.0-53.0) Mean Corpuscular Volume 98 fL (79-100) Mean Corpuscular Hemoglobin 32 pg (25-35) Mean Corpuscular Hemoglobin Concent 32 g/dL (31-37) Red Cell Distribution Width 14.9 % (11.5-14.5) Platelet Count 172 x10^3/uL (140-400) Creatine Kinase 26 U/L (39-308) Review of Systems Review of Systems A 14 point ROS was completed with the following noted as positive: Other systems reviewed and negative. \CONSTITUTIONAL: No fever or chills EYES: No recent changes SKIN: No rash or itching CARDIOVASCULAR: No chest pain, syncope, palpitations, or edema RESPIRATORY: No SOB or cough GASTROINTESTINAL: No nausea, vomiting or abdominal pain NEUROLOGICAL: No headaches or weakness ENDOCRINE: No cold or heat intolerance GENITOURINARY: No urgency or frequency of urination MUSCULOSKELETAL: No back pain or joint pain LYMPHATICS: No enlarged lymph nodes PSYCHIATRIC: No anxiety or depression Comment Review of Relevant I have reviewed the following items aron (where applicable) has been applied. Labs Laboratory Tests Test 02/15/18 03:40 02/15/18 03:45 02/15/18 17:00 02/16/18 03:45 Sodium Level 144 mmol/L (136-145) Potassium Level 4.7 mmol/L (3.5-5.1) Chloride Level 113 mmol/L (98-107) Carbon Dioxide Level 29 mmol/L (21-32) Anion Gap 2 (6-14) Blood Urea Nitrogen 41 mg/dL (8-26) Creatinine 1.3 mg/dL (0.7-1.3) Estimated GFR (Cockcroft-Gault) 53.7 Glucose Level 121 mg/dL (70-99) Calcium Level 10.0 mg/dL (8.5-10.1) White Blood Count 20.3 x10^3/uL (4.0-11.0) 14.9 x10^3/uL (4.0-11.0) Red Blood Count 2.64 x10^6/uL (4.30-5.70) 2.78 x10^6/uL (4.30-5.70) Hemoglobin 8.4 g/dL (13.0-17.5) 8.8 g/dL (13.0-17.5) Hematocrit 25.7 % (39.0-53.0) 27.3 % (39.0-53.0) Mean Corpuscular Volume 98 fL (79-100) 98 fL (79-100) Mean Corpuscular Hemoglobin 32 pg (25-35) 32 pg (25-35) Mean Corpuscular Hemoglobin Concent 33 g/dL (31-37) 32 g/dL (31-37) Red Cell Distribution Width 15.1 % (11.5-14.5) 14.9 % (11.5-14.5) Platelet Count 141 x10^3/uL (140-400) 172 x10^3/uL (140-400) Neutrophils (%) (Auto) 88 % (31-73) Lymphocytes (%) (Auto) 4 % (24-48) Monocytes (%) (Auto) 6 % (0-9) Eosinophils (%) (Auto) 1 % (0-3) Basophils (%) (Auto) 1 % (0-3) Neutrophils # (Auto) 17.9 x10^3uL (1.8-7.7) Lymphocytes # (Auto) 0.9 x10^3/uL (1.0-4.8) Monocytes # (Auto) 1.3 x10^3/uL (0.0-1.1) Eosinophils # (Auto) 0.1 x10^3/uL (0.0-0.7) Basophils # (Auto) 0.1 x10^3/uL (0.0-0.2) Prothrombin Time 15.0 SEC (11.7-14.0) 15.4 SEC (11.7-14.0) Prothromb Time International Ratio 1.2 (0.8-1.1) 1.3 (0.8-1.1) Lactic Acid Level 0.6 mmol/L (0.4-2.0) Creatine Kinase 26 U/L (39-308) Laboratory Tests Test 02/15/18 17:00 02/16/18 03:45 Prothrombin Time 15.0 SEC (11.7-14.0) 15.4 SEC (11.7-14.0) Prothromb Time International Ratio 1.2 (0.8-1.1) 1.3 (0.8-1.1) Lactic Acid Level 0.6 mmol/L (0.4-2.0) White Blood Count 14.9 x10^3/uL (4.0-11.0) Red Blood Count 2.78 x10^6/uL (4.30-5.70) Hemoglobin 8.8 g/dL (13.0-17.5) Hematocrit 27.3 % (39.0-53.0) Mean Corpuscular Volume 98 fL (79-100) Mean Corpuscular Hemoglobin 32 pg (25-35) Mean Corpuscular Hemoglobin Concent 32 g/dL (31-37) Red Cell Distribution Width 14.9 % (11.5-14.5) Platelet Count 172 x10^3/uL (140-400) Creatine Kinase 26 U/L (39-308) Microbiology 02/04/18 Blood Culture - Final, Complete NO GROWTH AFTER 5 DAYS 02/08/18 - Final, Complete 02/08/18 - Final, Complete 02/08/18 - Final, Complete 02/08/18 - Final, Complete 02/08/18 Gram Stain Evaluation - Final, Complete 02/08/18 Sputum Culture - Final, Complete 02/08/18 Sputum Result 1 - Final, Complete 02/08/18 Sputum Result 2 - Final, Complete 02/08/18 Antimicrobic Susceptibility - Final, Complete Medications Current Medications Ondansetron HCl (Zofran) 4 mg PRN Q6HRS PRN IV NAUSEA/VOMITING Last administered on 02/04/18at 04:08; Start 02/03/18 at 07:00; Stop 02/04/18 at 06:59; Status DC Fentanyl Citrate (Fentanyl 2ml Vial) 25 mcg PRN Q5MIN PRN IV MILD PAIN Last administered on 02/03/18at 12:13; Start 02/03/18 at 07:00; Stop 02/04/18 at 06:59; Status DC Fentanyl Citrate (Fentanyl 2ml Vial) 50 mcg PRN Q5MIN PRN IV MODERATE TO SEVERE PAIN; Start 02/03/18 at 07:00; Stop 02/04/18 at 06:59; Status DC Morphine Sulfate (Morphine Sulfate) 1 mg PRN Q10MIN PRN IV SEVERE PAIN Last administered on 02/03/18at 11:42; Start 02/03/18 at 07:00; Stop 02/04/18 at 06:59; Status DC Ringer's Solution 1,000 ml @ 30 mls/hr Q24H IV Last administered on 02/03/18at 09:13; Start 02/03/18 at 07:00; Stop 02/03/18 at 18:59; Status DC Lidocaine HCl (Xylocaine-Mpf 1% Vial) 2 ml PRN 1X PRN ID PRIOR TO IV START; Start 02/03/18 at 07:00; Stop 02/04/18 at 06:59; Status DC Prochlorperazine Edisylate (Compazine) 5 mg PACU PRN PRN IV NAUSEA, MRX1; Start 02/03/18 at 07:00; Stop 02/04/18 at 06:59; Status DC Cefazolin Sodium/ Dextrose 50 ml @ 100 mls/hr 1X PREOP PRN IV PRIOR TO SURGERY Last administered on 02/03/18at 09:35; Start 02/03/18 at 08:00; Stop at 14:44; Status DC Fentanyl Citrate (Fentanyl 2ml Vial) 100 mcg STK-MED ONCE .ROUTE ; Start at 08:09; Stop 02/03/18 at 08:10; Status DC Rocuronium [place] (Zemuron) 50 mg STK-MED ONCE .ROUTE ; Start 02/03/18 at 08:09 ; Stop 02/03/18 at 08:10; Status DC Desflurane (Suprane) 60 ml STK-MED ONCE IH ; Start 02/03/18 at 08:09; Stop at 08:10; Status DC Dexamethasone Sodium Phosphate (Decadron) 20 mg STK-MED ONCE .ROUTE ; Start 02/03 at 08:09; Stop 02/03/18 at 08:10; Status DC Propofol 20 ml @ As Directed STK-MED ONCE IV ; Start 02/03/18 at 08:09; Stop 02/03 at 08:10; Status DC Lidocaine HCl (Lidocaine Pf 2% Vial) 5 ml STK-MED ONCE .ROUTE ; Start 02/03/18 at 08:09; Stop 02/03/18 at 08:10; Status DC Ondansetron HCl (Zofran) 4 mg STK-MED ONCE .ROUTE ; Start 02/03/18 at 08:09; Stop 02/03/18 at 08:10; Status DC Ketorolac Tromethamine (Toradol For Or Only) 30 mg STK-MED ONCE INJ ; Start 02/03 at 08:09; Stop 02/03/18 at 08:10; Status DC Ephedrine Sulfate (ePHEDrine PF IN SALINE SYRINGE) 50 mg STK-MED ONCE IV ; Start 02/03/18 at 08:15; Stop 02/03/18 at 08:16; Status DC Bupivacaine HCl/ Epinephrine Bitart (Marcaine-Epi 0.5%-[id number]) 50 ml STK-MED ONCE .ROUTE Last administered on 02/03/18at 09:49; Start 02/03/18 at 07:56; Stop 02/03/18 at 08:57; Status DC Iohexol (Omnipaque 300 Mg/ml) 100 ml STK-MED ONCE .ROUTE Last administered on at 09:49; Start 02/03/18 at 07:56; Stop 02/03/18 at 08:58; Status DC Phenylephrine HCl (PHENYLEPHRINE in 0.9% NACL PF) 1 mg STK-MED ONCE IV ; Start 02/03/18 at 09:24; Stop 02/03/18 at 09:25; Status DC Glycopyrrolate (Robinul) 1 mg STK-MED ONCE .ROUTE ; Start 02/03/18 at 09:55; Stop 02/03/18 at 09:56; Status DC Neostigmine Methylsulfate (Neostigmine Methylsulfate) 5 mg STK-MED ONCE .ROUTE ; Start 02/03/18 at 09:55; Stop 02/03/18 at 09:56; Status DC Albuterol Sulfate (Ventolin Neb Soln) 2.5 mg 1X PACU PRN NEB SHORTNESS OF BREATH Last administered on 02/03/18at 10:53; Start 02/03/18 at 11:00; Stop at 17:39; Status DC Diphenhydramine HCl (Benadryl) 25 mg PRN Q6HRS PRN PO ITCHING Last administered on 02/16/18at 04:13; Start 02/03/18 at 11:00 Diphenhydramine HCl (Benadryl) 25 mg PRN Q6HRS PRN IV ITCHING Last administered on 02/09/18at 22:30; Start 02/03/18 at 11:00 Enoxaparin Sodium (Lovenox 40mg Syringe) 40 mg Q24H SQ ; Start 02/03/18 at 11:00 ; Status Cancel Sodium Chloride (Normal Saline Flush) 3 ml QSHIFT PRN IV AFTER MEDS AND BLOOD DRAWS; Start 02/03/18 at 11:00 Potassium Chloride/Sodium Chloride 1,000 ml @ 75 mls/hr [id number] IV Last administered on 02/03/18at 23:55; Start 02/03/18 at 10:46; Stop 02/04/18 at 11:37; Status DC Dextrose (Dextrose 50%-Water Syringe) 12.5 gm PRN Q15MIN PRN IV SEE COMMENTS; Start 02/03/18 at 11:00 Oxycodone/ Acetaminophen (Percocet 5/325) 1 tab PRN Q4HRS PRN PO MILD PAIN, 1ST CHOICE Last administered on 02/12/18at 02:12; Start 02/03/18 at 11:00; Stop at 08:42; Status DC Oxycodone/ Acetaminophen (Percocet 5/325) 2 tab PRN Q4HRS PRN PO MODERATE PAIN , SEVERE PAIN; Start 02/03/18 at 11:00; Stop 02/12/18 at 08:42; Status DC Morphine Sulfate (Morphine Sulfate) 5 mg PRN Q3HRS PRN IV MODERATE TO SEVERE PAIN Last administered on 02/10/18at 17:55; Start 02/03/18 at 11:15 Docusate Sodium (Colace) 100 mg BID PO Last administered on 02/13/18at 21:21; Start 02/03/18 at 11:00; Stop 02/14/18 at 12:30; Status DC Ondansetron HCl (Zofran) 4 mg PRN Q6HRS PRN IV NAUESA, 1ST CHOICE Last administered on 02/12/18at 02:11; Start 02/03/18 at 11:00 Enoxaparin Sodium (Lovenox 40mg Syringe) 40 mg Q24H SQ ; Start 02/04/18 at 09:00 ; Stop 02/04/18 at 09:00; Status DC Hydralazine HCl (Apresoline Inj) 10 mg 1X PACU PRN IVP ELEVATED BP, SEE COMMENTS; Start 02/03/18 at 12:15; Stop 02/03/18 at 20:00; Status DC Oxycodone/ Acetaminophen (Percocet 5/325) 1 tab 1X PACU PRN PO PAIN Last administered on 02/03/18at 12:20; Start 02/03/18 at 12:15; Stop 02/03/18 at 20:00; Status DC Albuterol Sulfate (Ventolin Neb Soln) 2.5 mg PRN Q2HR PRN NEB [id number] Last administered on 02/13/18at 01:47; Start 02/03/18 at 15:00 Albuterol/ Ipratropium (Duoneb) 3 ml RTQID NEB Last administered on 02/12/18at 20:00; Start 02/03/18 at 16:00; Stop 02/13/18 at 01:32; Status DC Ondansetron HCl (Zofran) 4 mg PRN Q6HRS PRN IV NAUSEA/VOMITING; Start 02/04/18 at 07:00; Stop 02/05/18 at 06:59; Status DC Fentanyl Citrate (Fentanyl 2ml Vial) 25 mcg PRN Q5MIN PRN IV MILD PAIN; Start 02/04/18 at 07:00; Stop 02/05/18 at 06:59; Status DC Fentanyl Citrate (Fentanyl 2ml Vial) 50 mcg PRN Q5MIN PRN IV MODERATE TO SEVERE PAIN; Start 02/04/18 at 07:00; Stop 02/05/18 at 06:59; Status DC Morphine Sulfate (Morphine Sulfate) 1 mg PRN Q10MIN PRN IV SEVERE PAIN; Start 02/04/18 at 07:00; Stop 02/05/18 at 06:59; Status DC Ringer's Solution 1,000 ml @ 30 mls/hr Q24H IV ; Start 02/04/18 at 07:00; Stop 02/04/18 at 18:59; Status DC Lidocaine HCl (Xylocaine-Mpf 1% Vial) 2 ml PRN 1X PRN ID IV START; Start at 07:00; Stop 02/05/18 at 06:59; Status DC Prochlorperazine Edisylate (Compazine) 5 mg PACU PRN PRN IV NAUSEA, MRX1; Start 02/04/18 at 07:00; Stop 02/05/18 at 06:59; Status DC Furosemide (Lasix) 40 mg 1X ONCE IVP Last administered on 02/04/18at 12:47; Start 02/04/18 at 11:45; Stop 02/04/18 at 11:46; Status DC Sodium Chloride 1,000 ml @ 100 mls/hr Q10H IV Last administered on 02/05/18at 21 :05; Start 02/04/18 at 12:00; Stop 02/06/18 at 13:12; Status DC Hydralazine HCl (Apresoline Inj) 10 mg PRN Q4HRS PRN IVP ELEVATED BP, SEE COMMENTS Last administered on 02/10/18at 03:12; Start 02/04/18 at 12:15 Iohexol (Omnipaque 300 Mg/ml) 100 ml STK-MED ONCE .ROUTE ; Start 02/04/18 at 12: 11; Stop 02/04/18 at 12:12; Status DC Cefazolin Sodium/ Dextrose (Ancef 2gm Premix) 2 gm STK-MED ONCE IV ; Start at 07:00; Stop 02/04/18 at 12:31; Status DC Propofol 0 ml @ As Directed STK-MED ONCE IV ; Start 02/04/18 at 13:50; Stop at 13:51; Status DC Lidocaine HCl (Lidocaine Pf 2% Vial) 5 ml STK-MED ONCE .ROUTE ; Start 02/04/18 at 13:50; Stop 02/04/18 at 13:51; Status DC Famotidine (Pepcid Vial) 20 mg STK-MED ONCE .ROUTE ; Start 02/04/18 at 13:50; Stop 02/04/18 at 13:51; Status DC Dexamethasone Sodium Phosphate (Decadron) 20 mg STK-MED ONCE .ROUTE ; Start 02/04 at 13:50; Stop 02/04/18 at 13:52; Status DC Ondansetron HCl (Zofran) 4 mg STK-MED ONCE .ROUTE ; Start 02/04/18 at 13:50; Stop 02/04/18 at 13:52; Status DC Lorazepam (Ativan) 0.5 mg PRN Q8HRS PRN PO ANXIETY / AGITATION 1ST CHOICE Last administered on 02/14/18at 21:09; Start 02/04/18 at 15:15 Furosemide (Lasix) 40 mg 1X ONCE IVP Last administered on 02/04/18 17:00; Start 02/04/18 at 16:45; Stop 02/04/18 at 16:46; Status DC Ciprofloxacin/ Dextrose 200 ml @ 200 mls/hr Q12HR IV Last administered on at 08:10; Start 02/04/18 at 17:30; Stop 02/06/18 at 14:49; Status DC Metronidazole 100 ml @ 100 mls/hr Q12HR IV Last administered on 02/09/18at 20:52 ; Start 02/04/18 at 17:30; Stop 02/10/18 at 13:43; Status DC Metoclopramide HCl (Reglan Vial) 5 mg PRN Q6HRS PRN IV NAUSEA/VOMITING 2nd CHOICE Last administered on 02/05/18at 13:05; Start 02/04/18 at 17:30; Stop at 15:13; Status DC Lorazepam (Ativan) 0.5 mg PRN Q6HRS PRN IV ANXIETY / AGITATION 1ST CHOICE Last administered on 02/13/18at 09:56; Start 02/04/18 at 20:45 Acetaminophen (Tylenol) 500 mg PRN Q4HRS PRN PO FEVER Last administered on 02/16at 04:13; Start 02/04/18 at 22:15 Furosemide (Lasix) 40 mg 1X ONCE IVP Last administered on 02/05/18at 01:15; Start 02/05/18 at 01:30; Stop 02/05/18 at 01:31; Status DC Ringer's Solution 1,000 ml @ 75 mls/hr [id number] IV Last administered on at 09:52; Start 02/05/18 at 10:00; Stop 02/06/18 at 13:12; Status DC Iohexol (Omnipaque 300 Mg/ml) 100 ml STK-MED ONCE .ROUTE ; Start 02/05/18 at 10: 10; Stop 02/05/18 at 10:11; Status DC Fentanyl Citrate (Fentanyl 2ml Vial) 100 mcg STK-MED ONCE .ROUTE ; Start at 10:33; Stop 02/05/18 at 10:34; Status DC Ondansetron HCl (Zofran) 4 mg STK-MED ONCE .ROUTE ; Start 02/05/18 at 11:01; Stop 02/05/18 at 11:03; Status DC Iohexol (Omnipaque 300 Mg/ml) 100 ml STK-MED ONCE IV Last administered on at 11:27; Start 02/05/18 at 11:27; Stop 02/05/18 at 11:29; Status DC Haloperidol Lactate (Haldol Inj) 5 mg PRN Q6HRS PRN IVP AGITATION 2ND CHOICE Last administered on 02/10/18at 09:00; Start 02/05/18 at 12:30 Ciprofloxacin/ Dextrose 200 ml @ 200 mls/hr Q24H IV Last administered on at 08:25; Start 02/07/18 at 08:00; Stop 02/12/18 at 09:45; Status DC Magnesium Sulfate 50 ml @ 25 mls/hr PRN DAILY PRN IV for Mag < 1.7 on am labs; Start 02/07/18 at 09:00 Darbepoetin Rob (Aranesp) 60 mcg [id number] SQ Last administered on 02/14/18at 21 :10; Start 02/07/18 at 21:00 Lactobacillus Rhamnosus (Culturelle) 1 cap BID PO Last administered on at 08:59; Start 02/08/18 at 21:00 Sodium Chloride 1,000 ml @ 125 mls/hr Q8H IV Last administered on 02/09/18at 04: 39; Start 02/08/18 at 10:00; Stop 02/09/18 at 10:23; Status DC Furosemide (Lasix) 40 mg 1X ONCE IVP Last administered on 02/08/18at 12:07; Start 02/08/18 at 11:30; Stop 02/08/18 at 11:31; Status DC Amino Acids/ Glycerin/ Electrolytes 1,000 ml @ 75 mls/hr [id number] IV Last administered on 02/10/18at 05:43; Start 02/08/18 at 12:00; Stop 02/11/18 at 12:42; Status DC Sodium Bicarbonate (Sodium Bicarb Adult 8.4% Syr) 50 meq 1X ONCE IV Last administered on 02/08/18at 12:08; Start 02/08/18 at 12:30; Stop 02/08/18 at 12:31; Status DC Albuterol/ Ipratropium (Duoneb) 3 ml STK-MED ONCE .ROUTE ; Start 02/08/18 at 19: 39; Stop 02/08/18 at 19:40; Status DC Neostigmine Methylsulfate (Neostigmine Methylsulfate) 5 mg STK-MED ONCE .ROUTE ; Start 02/06/18 at 12:00; Stop 02/09/18 at 06:52; Status DC Lidocaine HCl (Lidocaine HCl 2% Abboject) 100 mg STK-MED ONCE .ROUTE ; Start 02/06/18 at 12:00; Stop 02/09/18 at 06:52; Status DC Phenylephrine HCl (PHENYLEPHRINE in 0.9% NACL PF) 2 mg STK-MED ONCE IV ; Start 02/06/18 at 12:00; Stop 02/09/18 at 06:52; Status DC Propofol (Diprivan) 200 mg STK-MED ONCE IV ; Start 02/06/18 at 12:00; Stop at 06:52; Status DC Glycopyrrolate (Robinul) 1 mg STK-MED ONCE .ROUTE ; Start 02/06/18 at 12:00; Stop 02/09/18 at 06:52; Status DC Dexamethasone Sodium Phosphate (Decadron) 20 mg STK-MED ONCE .ROUTE ; Start 02/06 at 12:00; Stop 02/09/18 at 06:52; Status DC Metoprolol Tartrate (Lopressor Vial) 5 mg PRN Q6HRS PRN IVP [id number]; Start 02/09/18 at 12:45 Quetiapine Fumarate (SEROquel) 50 mg QHS PO Last administered on 02/09/18at 20:53 ; Start 02/09/18 at 21:00; Stop 02/10/18 at 14:54; Status DC Metronidazole 100 ml @ 100 mls/hr Q12H IV Last administered on 02/11/18at 02:01 ; Start 02/10/18 at 14:00; Stop 02/11/18 at 12:42; Status DC Dextrose/Sodium Chloride 1,000 ml @ 75 mls/hr [id number] IV Last administered on 02/11/18at 03:35; Start 02/10/18 at 14:15; Stop 02/11/18 at 12:42; Status DC Quetiapine Fumarate (SEROquel) 50 mg BID PO Last administered on 02/11/18at 20:28 ; Start 02/10/18 at 15:00; Stop 02/12/18 at 08:42; Status DC Dextrose 1,000 ml @ 100 mls/hr Q10H IV Last administered on 02/12/18at 05:41; Start 02/11/18 at 10:45; Stop 02/12/18 at 08:42; Status DC Doxycycline Hyclate (Vibra-Tab) 100 mg BID PO Last administered on 02/12/18at 08 :20; Start 02/11/18 at 11:30; Stop 02/12/18 at 16:05; Status DC Metronidazole (Flagyl) 500 mg Q12HR PO Last administered on 02/12/18at 08:21; Start 02/11/18 at 14:00; Stop 02/12/18 at 16:05; Status DC Amiodarone HCl (Cordarone) 100 mg DAILY PO Last administered on 02/16/18at 08:59 ; Start 02/11/18 at 14:00 Atorvastatin Calcium (Lipitor) 10 mg HS PO Last administered on 02/15/18at 20:45 ; Start 02/11/18 at 21:00 Metoprolol Succinate (Toprol Xl) 25 mg QPM PO Last administered on 02/15/18at 17 :29; Start 02/11/18 at 18:00 Ciprofloxacin (Cipro) 500 mg BID PO ; Start 02/12/18 at 21:00; Stop 02/12/18 at 21:00; Status DC Barium Sulfate (Varibar Thin Liquid Apple) 148 gm 1X ONCE PO Last administered on 02/12/18at 13:30; Start 02/12/18 at 13:30; Stop 02/12/18 at 13:31 ; Status DC Amoxicillin/ Clavulanate Potassium (Augmentin 875/ 125mg) 1 tab BID PO Last administered on 02/15/18at 20:45; Start 02/12/18 at 17:00; Stop 02/16/18 at 08:50 ; Status DC Polyethylene Glycol (miraLAX PACKET) 17 gm DAILY PO Last administered on at 17:48; Start 02/12/18 at 18:00; Stop 02/12/18 at 18:00; Status DC Polyethylene Glycol (miraLAX PACKET) 17 gm PRN DAILY PRN PO CONSTIPATION Last administered on 02/13/18at 09:56; Start 02/12/18 at 18:00; Stop 02/13/18 at 15:21 ; Status DC Albuterol/ Ipratropium (Duoneb) 3 ml PRN Q2HRS PRN NEB SHORTNESS OF BREATH; Start 02/13/18 at 01:15; Status UNV Albuterol/ Ipratropium (Duoneb) 3 ml Q4HRS NEB Last administered on 02/16/18at 11:46; Start 02/13/18 at 04:00 Senna/Docusate Sodium (Senna Plus) 1 tab BID PO Last administered on 02/13/18at 21:22; Start 02/13/18 at 13:00; Stop 02/14/18 at 12:30; Status DC Docusate Sodium (Colace) 100 mg BID PO ; Start 02/13/18 at 13:00; Status Cancel Magnesium Hydroxide (Milk Of Magnesia) 2,400 mg BID PO Last administered on 05/23at 21:21; Start 02/13/18 at 13:00; Stop 02/14/18 at 12:30; Status DC Lactulose (Lactulose) 20 gm PRN Q12HR PRN PO CONSTIPATION; Start 02/13/18 at 12 :30 Bisacodyl (Dulcolax Supp) 10 mg PRN DAILY PRN [place] CONSTIPATION; Start 02/13/18 at 12:30 Amino Acids/ Glycerin/ Electrolytes 1,000 ml @ 80 mls/hr [id number] IV Last administered on 02/13/18at 13:36; Start 02/13/18 at 12:30; Stop 02/14/18 at 18:18 ; Status DC Polyethylene Glycol (miraLAX PACKET) 17 gm BID PO Last administered on at 21:21; Start 02/13/18 at 16:00; Stop 02/14/18 at 12:30; Status DC Furosemide (Lasix) 10 mg MoWeFr PO Last administered on 02/15/18at 09:59; Start 02/15/18 at 09:00 Tamsulosin HCl (Flomax) 0.4 mg QHS PO Last administered on 02/15/18at 20:45; Start 02/14/18 at 21:00 Alprazolam (Xanax) 0.5 mg PRN Q8HRS PRN PO ANXIETY / AGITATION 2ND CHOICE Last administered on 02/16/18at 00:48; Start 02/15/18 at 15:15 Warfarin Sodium (Coumadin Per Pharmacy) 1 each PRN DAILY PRN MC SEE COMMENTS Last administered on 02/16/18at 11:01; Start 02/15/18 at 16:45 Warfarin Sodium (Coumadin) 7.5 mg 1X WARF ONCE PO Last administered on at 19:41; Start 02/15/18 at 18:30; Stop 02/15/18 at 18:31; Status DC Cefpodoxime Proxetil (Vantin) 200 mg BID PO Last administered on 02/16/18at 08: 59; Start 02/16/18 at 09:00 Warfarin Sodium (Coumadin) 7.5 mg 1X WARF ONCE PO ; Start 02/16/18 at 16:00; Stop 02/16/18 at 16:01 Active Scripts Active Reported Ferrous Sulfate 325 Mg Tablet 1 Tab PO DAILY Super B Complex-Vitamin C (B Complex With Vitamin C) 1 Each Tablet 1 Each PO Warfarin Sodium 5 Mg Tablet 7.5 Mg PO QTUTHSA Amiodarone Hcl 200 Mg Tablet 100 Mg PO DAILY Furosemide 20 Mg Tablet 10 Mg PO QMWF Metoprolol Succinate ( Xl ) (Metoprolol Succinate) 25 Mg Tab.er.24h 1 Tab PO QPM Calcitriol 0.25 Mcg Capsule 0.25 Mcg PO QM-W-F Warfarin Sodium 5 Mg Tablet 5 Mg PO QMWF Loratadine 10 Mg Tablet 10 Mg PO QHS Tamsulosin Hcl 0.4 Mg Cap.er.24h 0.4 Mg PO QHS Atorvastatin Calcium 10 Mg Tablet 10 Mg PO HS Duoneb 0.5-3(2.5) Mg/3 Ml (Albuterol/Ipratropium) 3 Ml Ampul.neb 3 Ml IH TID PRN Flonase (Fluticasone Propionate) 16 Gm Stanton.susp 2 Stanton NS BID Vitals/I & O Vital Sign - Last 24 Hours 02/15/18 02/15/18 02/15/18 02/15/18 15:00 15:37 17:29 19:00 Temp 98.6 98.4 98.6 98.4 Pulse 82 82 78 Resp 18 18 B/P (MAP) 143/62 (89) 143/62 152/65 (94) Pulse Ox 96 94 O2 Delivery Nasal Cannula Nasal Cannula Room Air O2 Flow Rate 2.0 2.0 02/15/18 02/15/18 02/15/18 02/16/18 19:25 20:00 23:00 00:02 Temp 98.9 98.9 Pulse 65 Resp 18 B/P (MAP) 138/69 (92) Pulse Ox 97 94 95 O2 Delivery Nasal Cannula Nasal Cannula Nasal Cannula Nasal Cannula O2 Flow Rate 2.0 2.0 2.0 2.0 02/16/18 02/16/18 02/16/18 02/16/18 03:00 04:25 07:00 07:40 Temp 98.1 97.3 98.1 97.3 Pulse 69 83 Resp 18 18 B/P (MAP) 132/62 (85) 147/72 (97) Pulse Ox 96 94 97 O2 Delivery Nasal Cannula Nasal Cannula Nasal Cannula Nasal Cannula O2 Flow Rate 2.0 2.5 2.0 2.5 02/16/18 02/16/18 02/16/18 08:10 08:59 11:46 Pulse 83 B/P (MAP) 147/72 Pulse Ox 97 O2 Delivery Room Air Nasal Cannula O2 Flow Rate 2.5 Intake and Output 02/15/18 02/15/18 02/16/18 15:00 23:00 07:00 Intake Total 400 ml 580 ml Output Total 300 ml Balance 400 ml 280 ml RICO MICHEL MD Feb 16, 2018 11:59
--- NOTE | 2018-02-16 12:02 | PDOC3 ---
Discharge Summary Visit Information Date of Admission: Feb 03, 2018 Date of Discharge: Feb 16, 2018 Final Diagnosis Status post lap cholecystectomy by general surgery-primary service 02/03 Postop confusion Metabolic encephalopathy, likely secondary to Seroquel and Percocet, resolved Generalized weakness Hypernatremia in the setting of nothing by mouth or dysphagia diet SIRS, leukocytosis AK I/VMN on CK D History of CAD, with indwelling stents Anemia of chronic disease Mild thrombocytopenia dysphagia severe malnutrition constipation Brief Hospital Course Allergies Allergies Coded Allergies Type Severity Reaction Last Updated Verified No Known Drug Allergies 02/05/18 No Vital Signs Vital Signs Date Time Temp Pulse Resp B/P (MAP) Pulse Ox O2 Delivery O2 Flow Rate FiO2 02/16/18 11:46 97 Nasal Cannula 2.5 02/16/18 08:59 83 147/72 02/16/18 07:00 97.3 18 97.3 Lab Results Laboratory Tests Test 02/15/18 03:40 02/15/18 03:45 02/15/18 17:00 02/16/18 03:45 Sodium Level 144 mmol/L (136-145) Potassium Level 4.7 mmol/L (3.5-5.1) Chloride Level 113 mmol/L (98-107) Carbon Dioxide Level 29 mmol/L (21-32) Anion Gap 2 (6-14) Blood Urea Nitrogen 41 mg/dL (8-26) Creatinine 1.3 mg/dL (0.7-1.3) Estimated GFR (Cockcroft-Gault) 53.7 Glucose Level 121 mg/dL (70-99) Calcium Level 10.0 mg/dL (8.5-10.1) White Blood Count 20.3 x10^3/uL (4.0-11.0) 14.9 x10^3/uL (4.0-11.0) Red Blood Count 2.64 x10^6/uL (4.30-5.70) 2.78 x10^6/uL (4.30-5.70) Hemoglobin 8.4 g/dL (13.0-17.5) 8.8 g/dL (13.0-17.5) Hematocrit 25.7 % (39.0-53.0) 27.3 % (39.0-53.0) Mean Corpuscular Volume 98 fL (79-100) 98 fL (79-100) Mean Corpuscular Hemoglobin 32 pg (25-35) 32 pg (25-35) Mean Corpuscular Hemoglobin Concent 33 g/dL (31-37) 32 g/dL (31-37) Red Cell Distribution Width 15.1 % (11.5-14.5) 14.9 % (11.5-14.5) Platelet Count 141 x10^3/uL (140-400) 172 x10^3/uL (140-400) Neutrophils (%) (Auto) 88 % (31-73) Lymphocytes (%) (Auto) 4 % (24-48) Monocytes (%) (Auto) 6 % (0-9) Eosinophils (%) (Auto) 1 % (0-3) Basophils (%) (Auto) 1 % (0-3) Neutrophils # (Auto) 17.9 x10^3uL (1.8-7.7) Lymphocytes # (Auto) 0.9 x10^3/uL (1.0-4.8) Monocytes # (Auto) 1.3 x10^3/uL (0.0-1.1) Eosinophils # (Auto) 0.1 x10^3/uL (0.0-0.7) Basophils # (Auto) 0.1 x10^3/uL (0.0-0.2) Prothrombin Time 15.0 SEC (11.7-14.0) 15.4 SEC (11.7-14.0) Prothromb Time International Ratio 1.2 (0.8-1.1) 1.3 (0.8-1.1) Lactic Acid Level 0.6 mmol/L (0.4-2.0) Creatine Kinase 26 U/L (39-308) Laboratory Tests Test 02/15/18 17:00 02/16/18 03:45 Prothrombin Time 15.0 SEC (11.7-14.0) 15.4 SEC (11.7-14.0) Prothromb Time International Ratio 1.2 (0.8-1.1) 1.3 (0.8-1.1) Lactic Acid Level 0.6 mmol/L (0.4-2.0) White Blood Count 14.9 x10^3/uL (4.0-11.0) Red Blood Count 2.78 x10^6/uL (4.30-5.70) Hemoglobin 8.8 g/dL (13.0-17.5) Hematocrit 27.3 % (39.0-53.0) Mean Corpuscular Volume 98 fL (79-100) Mean Corpuscular Hemoglobin 32 pg (25-35) Mean Corpuscular Hemoglobin Concent 32 g/dL (31-37) Red Cell Distribution Width 14.9 % (11.5-14.5) Platelet Count 172 x10^3/uL (140-400) Creatine Kinase 26 U/L (39-308) Brief Hospital Course Mr. Quintero is a 77 old [sex] who presented with [ ] Mr. Quintero is a 77 old male who came from home admitted by general surgery primary service for scheduled laparoscopic cholecystectomy. But course remarkable for severe confusion postop needed neurology on board. This was most likely to a mix of Percocet and Seroquel which she was taking. Once we DC dose meds he was mentating pretty good. Needs SNU on discharge and he has agreed to it Discussed with maintenance planner Izzy and RN. We were consulted for the above, cleared from both GS and IM to discharge MAR done, NO more percocet and seroquel pls Addendum WBC down to 14 on discharge, cleared by ID to go home by mouth Vantin on chart Also some arrhythmia? Or tachycardia overnight Seen by cardiology, clear to go to [facility] today Discussed with family at bedside, patient and RN Shilpa. Discharge Information Condition at Discharge: Improved, Stable Disposition/Orders: Other (snu) Scheduled Amiodarone Hcl (Amiodarone Hcl) 200 Mg Tablet, 100 MG PO DAILY, (Reported) Entered as Reported by: Ti Mata on 06/10/17 0017 Last Taken: Unknown Dose on 02/02/18 0700 Last Action: Continued on 1350 by JOHN JOHN Atorvastatin Calcium (Atorvastatin Calcium) 10 Mg Tablet, 10 MG PO HS for FOR CHOLESTEROL, #30 Ref 0 (Reported) Entered as Reported by: Lynnette Angeles on 10/16/14 1133 Last Action: Continued on 02/11/18 1350 by JOHN JOHN Calcitriol (Calcitriol) 0.25 Mcg Capsule, 0.25 MCG PO QM-W-F, (Reported) Entered as Reported by: YOVANI MOLINA on 05/24/16 2310 Ferrous Sulfate (Ferrous Sulfate) 325 Mg Tablet, 1 TAB PO DAILY, #30 Ref 3 ( Reported) Entered as Reported by: JOHNNY CARRIZALES on 01/28/18 0935 Fluticasone Propionate (Flonase) 16 Gm Waller.susp, 2 SPRAY NS BID, (Reported) Entered as Reported by: CHAVA SMALL on 01/06/14 2253 Furosemide (Furosemide) 20 Mg Tablet, 10 MG PO QMWF, (Reported) Entered as Reported by: Ti Mata on 06/10/1716 Last Taken: Unknown Dose on 02/02/18 0700 Last Action: Continued on 1815 by Araceli Castaneda Loratadine (Loratadine) 10 Mg Tablet, 10 MG PO QHS, (Reported) Entered as Reported by: Lynnette Angeles on 10/16/14 1133 Metoprolol Succinate (Metoprolol Succinate ( Xl )) 25 Mg Tab.er.24h, 1 TAB PO QPM, #30 Ref 5 (Reported) Entered as Reported by: SHERRY ALONSO on 11/13/16 0857 Last Taken: Unknown Dose on 02/02/181999 Last Action: Continued on 1350 by JOHN JOHN Tamsulosin Hcl (Tamsulosin Hcl) 0.4 Mg Cap.er.24h, 0.4 MG PO QHS, (Reported) Entered as Reported by: Lynnette Angeles on 10/16/14 1133 Last Taken: Unknown Dose on 02/02/181999 Last Action: Continued on 1815 by Araceli Castaneda Warfarin Sodium (Warfarin Sodium) 5 Mg Tablet, 5 MG PO QMWF, (Reported) Entered as Reported by: YOVANI MOLINA on 05/24/16 2310 Last Taken: Unknown Dose on 01/29/18 Last Action: Last Taken Edited on 02/03/18 0857 by Katelynn George Warfarin Sodium (Warfarin Sodium) 5 Mg Tablet, 7.5 MG PO QTUTHSA, (Reported) Entered as Reported by: Ti Mata on 06/10/1716 Last Taken: Unknown Dose on 01/29/18 Last Action: Last Taken Edited on 02/03/18 0857 by Katelynn George Scheduled PRN Ipratropium/Albuterol Sulfate (Duoneb 0.5-3(2.5) Mg/3 Ml) 3 Ml Ampul.neb, 3 ML IH TID PRN for SHORTNESS OF BREATH, (Reported) Entered as Reported by: KADEN PRINGLE on 07/24/14 1038 Miscellaneous Medications B Complex With Vitamin C (Super B Complex-Vitamin C) 1 Each Tablet, 1 EACH PO, ( Reported) Entered as Reported by: SHERRY WOODSON on 12/04/17 194 RICO MICHEL MD Feb 16, 2018 12:02
[2018-02-16] MEDS ORDERED: WARFARIN 7.5 MG TABLET. PO ONE (16:00)
--- NOTE | 2018-02-16 16:57 | PDOC ---
PROGRESS NOTES Assessment Assessment Metabolic encephalopathy. Confusion. Dysphagia. Leukocytosis. UTI. AFib. CAD. CHF. HTN HLD. DM? Renal failure. Over weight. Skin basal cell cancer. Elevated ESR. RECOMMENDATIONS/PLAN: Bedside swallow test performed. Brain MRI w/o contrast, if his pacemaker is MRI compatible. Treat medical diseases. Rehab. Discussed with his in a great length at bedside on 02/16. Past Medical History Cardiovascular: AFIB, CAD, CHF, HTN, Hyperlipidemia, Other (carotid stenosis, peripheral vascular disease) Pulmonary: COPD, Pneumonia, Other (sleep apnea) GI: Constipation, Hemorrhoids, Other (colonic polyps) Heme/Onc: Anemia NOS Psych: Anxiety, Depression Musculoskeletal: Osteoarthritis Renal/: Chronic renal insuff, Benign prostatic enlarg., Other (erectile dysfunction) Dermatology: Basal cell Past Surgical History Pacemaker, Cholecystectomy, Cataract Removal, Hernia Repair, Other (rectal fistula repair, right index finger) Family History Cancer Social History , retired, no alcohol or tobacco ALLERGY: NKDA MEDICATIONS: Refer to MAR REVIEW OF SYSTEMS: Constitutional: No malnutrition, weight loss, cachexia. Head: No traumatic brain or head injury. Skin: No edema, or rash. Ear: No infection. Eyes: No vision loss, or diplopia. Nose: No bleeding or purulent discharges. Hearing: Hearing loss. Neck: No injury. Cardiac: CAD, AFib, Pacemaker Placement, HTN, HLD Pulmonary: No COPD. GI: gallstone. Urinary/genital: UTI. Endocrine: Diabetes Mellitus? obesity. Skeletomuscular: No muscular atrophy, deformity. Neurological: see HP. Psychiatric: Denies drug use/abuse. Otherwise, not [id number] review of systems. PHYSICAL EXAMINATION: General appearance in no acute distress. HEENT: Normocephalic and nontraumatic. Eyes, nose, ears, and throat are unremarkable. Hearing decrease. Neck is supple. No lymphadenopathy. No bruits are heard over the carotid artery. No Crepitus. Cardiovascular: S1, S2, irregular rate and rhythm. Pulmonary: Clear to auscultation bilaterally. Abdomen: Bowel sounds are positive. Abdomen is soft, nontender, and nondistended. Extremities: No rash, lesions, or edema. No restriction of range of motion NEUROLOGICAL EXAMINATION: Awake. Oriented partially to time, place and person. PERRL. EOMI. CN: no focal findings. Muscle tone: within normal. Muscle strength: 4+ DTR: 1 Plantar reflex: Neutral response bilaterally Gait: Able to walk with a walker. Sensory exam: no abnormal findings. No acute cerebellar signs elicited. F-T-N test fine. Horizontal nystagmus elicited. Objective Objective Vital Signs Date Time Temp Pulse Resp B/P (MAP) Pulse Ox O2 Delivery O2 Flow Rate FiO2 02/16/18 11:46 97 Nasal Cannula 2.5 02/16/18 11:00 97.5 75 18 143/72 (95) 97.5 Intake and Output 02/16/18 07:00 Intake Total 980 ml Output Total 300 ml Balance 680 ml Intake Oral 980 ml Output Urine Total 300 ml # Voids 2 # Bowel Movements 1 Vitals Signs Vitals VS - Last 72 Hours, by Label Date Time Temp Pulse Resp B/P (MAP) Pulse Ox O2 Delivery O2 Flow Rate FiO2 02/16/18 11:46 97 Nasal Cannula 2.5 02/16/18 11:00 97.5 75 18 143/72 (95) 94 Nasal Cannula 2.0 97.5 02/16/18 08:59 83 147/72 02/16/18 08:10 Room Air 02/16/18 07:40 97 Nasal Cannula 2.5 02/16/18 07:00 97.3 83 18 147/72 (97) 94 Nasal Cannula 2.0 97.3 02/16/18 04:25 Nasal Cannula 2.5 02/16/18 03:00 98.1 69 18 132/62 (85) 96 Nasal Cannula 2.0 98.1 02/16/18 00:02 95 Nasal Cannula 2.0 02/15/18 23:00 98.9 65 18 138/69 (92) 94 Nasal Cannula 2.0 98.9 02/15/18 20:00 Nasal Cannula 2.0 02/15/18 19:25 97 Nasal Cannula 2.0 02/15/18 19:00 98.4 78 18 152/65 (94) 94 Room Air 98.4 02/15/18 17:29 82 143/62 02/15/18 15:37 Nasal Cannula 2.0 02/15/18 15:00 98.6 82 18 143/62 (89) 96 Nasal Cannula 2.0 98.6 02/15/18 11:57 94 Nasal Cannula 2.0 02/15/18 11:00 98.7 75 20 115/66 (82) 96 Nasal Cannula 2.0 98.7 02/15/18 09:56 76 145/66 02/15/18 08:25 Nasal Cannula 2.0 02/15/18 07:35 94 Nasal Cannula 2.0 02/15/18 07:00 98.4 76 20 145/66 (92) 94 Nasal Cannula 2.0 98.4 Laboratory Laboratory Laboratory Tests Test 02/15/18 17:00 02/16/18 03:45 Prothrombin Time 15.0 SEC (11.7-14.0) 15.4 SEC (11.7-14.0) Prothromb Time International Ratio 1.2 (0.8-1.1) 1.3 (0.8-1.1) Lactic Acid Level 0.6 mmol/L (0.4-2.0) White Blood Count 14.9 x10^3/uL (4.0-11.0) Red Blood Count 2.78 x10^6/uL (4.30-5.70) Hemoglobin 8.8 g/dL (13.0-17.5) Hematocrit 27.3 % (39.0-53.0) Mean Corpuscular Volume 98 fL (79-100) Mean Corpuscular Hemoglobin 32 pg (25-35) Mean Corpuscular Hemoglobin Concent 32 g/dL (31-37) Red Cell Distribution Width 14.9 % (11.5-14.5) Platelet Count 172 x10^3/uL (140-400) Creatine Kinase 26 U/L (39-308) Microbiology 02/04/18 Blood Culture - Final, Complete NO GROWTH AFTER 5 DAYS 02/08/18 - Final, Complete 02/08/18 - Final, Complete 02/08/18 - Final, Complete 02/08/18 - Final, Complete 02/08/18 Gram Stain Evaluation - Final, Complete 02/08/18 Sputum Culture - Final, Complete 02/08/18 Sputum Result 1 - Final, Complete 02/08/18 Sputum Result 2 - Final, Complete 02/08/18 Antimicrobic Susceptibility - Final, Complete Medication Medications Current Medications Cefpodoxime Proxetil (Vantin) 200 mg BID PO Last administered on 02/16/18at 08: 59; Start 02/16/18 at 09:00; Stop 02/16/18 at 16:04; Status DC Warfarin Sodium (Coumadin) 7.5 mg 1X WARF ONCE PO Last administered on at 19:41; Start 02/15/18 at 18:30; Stop 02/15/18 at 18:31; Status DC Warfarin Sodium (Coumadin) 7.5 mg 1X WARF ONCE PO ; Start 02/16/18 at 16:00; Stop 02/16/18 at 16:01; Status DC Comment Review of Relevant I have reviewed the following items aron (where applicable) has been applied. ELBERT SCRUGGS MD Feb 16, 2018 16:57
--- NOTE | 2018-02-17 01:46 | CONS ---
DATE OF CONSULTATION: 02/16/2018 REQUESTING PHYSICIAN: Dr. Nicholas. REASON FOR CONSULTATION: Leukocytosis. HISTORY OF PRESENT ILLNESS: This is a 77-year-old gentleman who has undergone significant problems. The patient has had acute cholecystitis. The patient initially had a cholecystostomy. The patient had respiratory failure. The patient subsequently then was admitted and underwent a laparoscopic cholecystectomy. The patient had a CBD stone and he underwent ERCP extraction. The patient also had respiratory failure, which eventually improved. The patient has respiratory infection with Klebsiella oxytoca growth in the sputum. The patient has been on Augmentin. This Klebsiella is resistant to ampicillin, but sensitive to Augmentin and the white count was going up, yesterday it was up to 20,000 and hence consultation. Initially, I was consulted, but then it was canceled as I had discussed with Dr. Nicholas to cancel and then they decided to reconsult me later on. The patient is feeling really good. The patient is on oxygen, but he says he does have oxygen at home and off and on he uses it. He is not using it every time. The patient has had some nausea and some abdominal distention, but other than that, he is feeling good. He is eating okay and is walking. Denies any chest pain, denies any shortness of breath. Denies any abdominal pain, denies any diarrhea, denies any urinary symptoms. White count is down today to 14,000. PAST MEDICAL HISTORY: Positive for COPD, obstructive sleep apnea, atrial fibrillation. SOCIAL HISTORY: Negative for smoking. No alcohol use or drug use, lives with . ALLERGIES: No known drug allergies. CURRENT MEDICATIONS: Reviewed. The patient is on Augmentin. REVIEW OF SYSTEMS: As per HPI, all other systems reviewed are negative. PHYSICAL EXAMINATION: GENERAL: Alert and oriented gentleman, not in any distress. VITAL SIGNS: Stable, afebrile. HEENT: NAD. NECK: Supple, no JVP, no lymphadenopathy. LUNGS: Clear. HEART: S1, S2 regular. ABDOMEN: Benign. EXTREMITIES: No edema, cyanosis. SKIN: Unremarkable. Incision area looks unremarkable. NEUROLOGIC: The patient is neurologically intact. LABORATORY DATA: White count is 14,000, BUN and creatinine is 41 and 1.3. Urinalysis was unremarkable. His sputum culture as I mentioned is Klebsiella oxytoca with ampicillin resistant. Last chest x-ray is showing mild cardiomegaly and minimal basilar atelectasis. IMPRESSION: 1. Leukocytosis, most likely to be reactive, now it is improving. 2. Respiratory infection with Klebsiella oxytoca. Augmentin probably should be okay; although, having ampicillin resistance, he is more likely to develop resistance on therapy. I would change to Vantin. 3. Status post cholecystectomy. 4. Common bile duct stone, status post endoscopic retrograde cholangiopancreatography. RECOMMENDATIONS: Recommend change Augmentin to Vantin for 5 more days. Okay to [facility]. I did discuss with in detail at the bedside. If white count starts going up, probably would recommend CT scan of the abdomen and pelvis to rule out any abscess. If she is concerned with white count, we will give instruction for [facility] facility to do WBC on . Discussion with Christine El for surgery done. Thank you very much, Dr. Nicholas, for giving me the opportunity to participate in this patient's care. MIRNA WHITNEY MD DR: LILIYA/deidre JOB#: [id number] / [id number]
== END 2018-02-16 15:10 | DRG 417 ==
LOC: SURG 08:31 → 4 NORTH 11:23 → 1 WEST ICU 02-04 20:10 → 4 NORTH 02-10 11:57
PROVIDERS: ADMIT Surgery; ATTEND Surgery
PROC: BF101ZZ Fluoroscopy of Bile Ducts using Low Osmolar Contrast (ICD-10-PCS; 2018-02-03)
PROC: 0FT44ZZ Resection of Gallbladder, Percutaneous Endoscopic Approach (ICD-10-PCS; principal; 2018-02-03 10:00)
PROC: 5A09457 Assistance with Respiratory Ventilation, 24-96 Consecutive Hours, Continuous Positive Airway Pressure (ICD-10-PCS; 2018-02-04)
PROC: 0F798ZZ Dilation of Common Bile Duct, Via Natural or Artificial Opening Endoscopic (ICD-10-PCS; 2018-02-05)
PROC: 5A09357 Assistance with Respiratory Ventilation, Less than 24 Consecutive Hours, Continuous Positive Airway Pressure (ICD-10-PCS; 2018-02-10)
DX: K80.42 Calculus of bile duct with acute cholecystitis without obstruction (principal); G93.41 Metabolic encephalopathy; E43 Unspecified severe protein-calorie malnutrition; J96.20 Acute and chronic respiratory failure, unspecified whether with hypoxia or hypercapnia; N17.0 Acute kidney failure with tubular necrosis; K80.00 Calculus of gallbladder with acute cholecystitis without obstruction; E87.0 Hyperosmolality and hypernatremia; I13.0 Hypertensive heart and chronic kidney disease with heart failure and stage 1 through stage 4 chronic kidney disease, or unspecified chronic kidney disease; I50.32 Chronic diastolic (congestive) heart failure; N39.0 Urinary tract infection, site not specified; C44.91 Basal cell carcinoma of skin, unspecified; D63.8 Anemia in other chronic diseases classified elsewhere; D69.6 Thrombocytopenia, unspecified; E78.5 Hyperlipidemia, unspecified; E86.9 Volume depletion, unspecified; E87.5 Hyperkalemia; F28 Other psychotic disorder not due to a substance or known physiological condition; G47.33 Obstructive sleep apnea (adult) (pediatric); H26.9 Unspecified cataract; I25.10 Atherosclerotic heart disease of native coronary artery without angina pectoris; I48.2 Chronic atrial fibrillation; I48.0 Paroxysmal atrial fibrillation; I73.9 Peripheral vascular disease, unspecified; J44.9 Chronic obstructive pulmonary disease, unspecified; K59.00 Constipation, unspecified; K74.0 Hepatic fibrosis; F32.9 Major depressive disorder, single episode, unspecified; F41.9 Anxiety disorder, unspecified; N18.3 Chronic kidney disease, stage 3 (moderate); R13.12 Dysphagia, oropharyngeal phase; M19.90 Unspecified osteoarthritis, unspecified site; Z16.11 Resistance to penicillins; Z79.899 Other long term (current) drug therapy; Z82.49 Family history of ischemic heart disease and other diseases of the circulatory system; Z83.3 Family history of diabetes mellitus; Z86.010 Personal history of colon polyps; Z87.891 Personal history of nicotine dependence; Z95.0 Presence of cardiac pacemaker; Z95.5 Presence of coronary angioplasty implant and graft; Z99.81 Dependence on supplemental oxygen; Z87.01 Personal history of pneumonia (recurrent); R41.0 Disorientation, unspecified; B96.1 Klebsiella pneumoniae [K. pneumoniae] as the cause of diseases classified elsewhere
CPT/HCPCS: 36415; 36600; 70450; 71045; 74230; 74300; 74328; 80048; 80053; 80069; 80076; 81001; 82140; 82150; 82306; 82550; 82607; 82746; 82805; 83605; 83690; 83735; 84100; 84132; 84443; 85007; 85025; 85027; 85610; 85651; 85730; 87040; 87070; 87186; 87205; 87641; 88304; 94640; 94660; 94760; A7015; C1726; C1757; J0360; J0690; J0744; J0881; J1100; J1200; J1630; J1650; J1885; J1940; J2001; J2060; J2270; J2370; J2405; J2704; J2710; J2765; J3010; J3490; J7030; J7120; J7613; J7620; Q0163; Q9967; S0028; 92526; 92610; 92611; 97110; 97116; 97530; 97535

== ENCOUNTER → 2018-02-19 | Outpatient (CLI) | payer MEDICARE, OTHER ==
[2018-02-16 11:00] VITALS: BP 143/72
[~2018-02-19] MED LIST changes: -BUPIVACAINE-EPI 0.5%-1:200000 50 ML VIAL. ONE; -DESFLURANE 61 TO 120 MINUTES IH ONE; -DEXAMETHASONE SOD PHOS 20 MG/5 ML VIAL. ONE; -IOHEXOL 300 MG/ML 100ML VIAL. ONE; -IV RINGERS,LACTATED 1000ML 1,000 ML IV SCH; -KETOROLAC 30 MG/ML INJ FOR OR. INJ ONE; -LIDOCAINE 1% PF 2 ML VIAL. ID PRN; -LIDOCAINE 2% PF Vial for OR 5 ML VIAL. ONE; -MORPHINE SULFATE 2 MG/ML VIAL. IV PRN; -ONDANSETRON PF 4 MG/2 ML VIAL. ONE; -PROCHLORPERAZINE 10 MG/2 ML VIAL. IV PRN; -PROPOFOL 20 ML IV ONE; -ROCURONIUM 50 MG/5 ML VIAL. ONE; -ceFAZolin 2GM PREMIX 2 GM/50 ML BAG IV ONE; -ePHEDrine PF IN SALINE 50 MG/5 ML DISP.SYRIN IV ONE; -fentaNYL PF VIAL 100 MCG/2 ML VIAL IV PRN; -fentaNYL PF VIAL 100 MCG/2 ML VIAL ONE
--- NOTE | 2018-02-19 12:47 | RAD ---
CT ABDOMEN PELVIS WO CONTRAST Indication: Postop cholecystectomy. Right upper quadrant pain. Exposure: One or more of the following individualized dose reduction techniques were utilized for this examination: 1. Automated exposure control 2. Adjustment of the mA and/or kV according to patient size 3. Use of iterative reconstruction technique. Comparison: December 04, 2017 Contrast: No intravenous contrast given. There is a very small amount of oral contrast in the distal colon Evaluation of solid viscera, bowel and vasculature is compromised by the noncontrast technique. Lower thorax: Coronary artery calcifications. Small right pleural effusion. Mild infiltrates/atelectasis in the lung bases. Liver: Pneumobilia identified. Mild right perihepatic fluid accumulation mainly along the lateral surface of the right lobe measuring up to 3.5 cm maximum thickness. This measures simple fluid density characteristics. This exerts some mass effect upon the liver, which appears narrowed in width. Spleen: Unremarkable Pancreas: Unremarkable Adrenals:No evidence of mass. Kidneys: Perinephric stranding again seen. Right renal pelvic dilatation versus parapelvic cyst again identified. Other hypodense lesions observed bilaterally are unchanged and may represent cysts. Urinary tracts: No evidence of urolithiasis. No evidence of ureteric dilatation. There is an irregular gas density structure, along the left lateral aspect of the descending duodenum. This may represent a duodenal diverticulum. This also appears to have been present on the prior study, as well as an earlier study of 06/10/2017, therefore a postoperative abscess is considered unlikely. Gallbladder: Surgically absent. Mild air identified within the common bile duct. Previously seen choledocholithiasis is not identified today. Aorta: Nonaneurysmal Lymph nodes: No significant enlargement GI tract: No bowel obstruction. Multiple diverticula. No evidence of acute colitis. Note that the cecum is somewhat superiorly positioned at the mid to upper quadrant. Mild retained stool. Appendix is normal. Reproductive organs:No evidence of mass. Urinary bladder: Unremarkable. Abdominal wall: Unremarkable Spine: Degenerative spondylosis. Bones: No destructive process identified. IMPRESSION: 1. Post cholecystectomy, with pneumobilia. 2. Moderate size fluid collection, centered along the lateral surface of the right lobe of the liver. This measures fluid density, could be due to nonacute blood product or abscess, if there is clinical concern for infection. This is more organized than would be expected from just free fluid. This does exert apparent mass effect upon the right lobe of liver, and is possible this fluid is subcapsular in location. 3. Small right pleural effusion. 4. There is an irregular gas-containing structure just medial to the descending duodenum. This was also seen on prior studies. None of these exams have oral contrast, but this likely represents a duodenal diverticulum. Voicemail with these findings was left with Dr. Alanis, with callback number, at 12:35 PM. Electronically signed by: Channing Godinez MD (02/19/2018 12:43 PM) [email or web address]
== END | disposition home or self-care (01) ==
LOC: CT 11:29
PROVIDERS: ATTEND Surgery
DX: R10.11 Right upper quadrant pain (principal); J90 Pleural effusion, not elsewhere classified; I25.10 Atherosclerotic heart disease of native coronary artery without angina pectoris; I13.0 Hypertensive heart and chronic kidney disease with heart failure and stage 1 through stage 4 chronic kidney disease, or unspecified chronic kidney disease; N18.4 Chronic kidney disease, stage 4 (severe); I50.42 Chronic combined systolic (congestive) and diastolic (congestive) heart failure; E78.5 Hyperlipidemia, unspecified; E78.00 Pure hypercholesterolemia, unspecified; M17.9 Osteoarthritis of knee, unspecified; J44.9 Chronic obstructive pulmonary disease, unspecified; K21.9 Gastro-esophageal reflux disease without esophagitis; Z90.49 Acquired absence of other specified parts of digestive tract; Z87.891 Personal history of nicotine dependence
CPT/HCPCS: 36415; 74176

== ENCOUNTER → 2018-03-03 | Outpatient (CLI) | payer MEDICARE, OTHER ==
[2018-02-24 15:47] VITALS: BP 130/63
--- NOTE | 2018-03-03 12:37 | RAD ---
Examination: CT of the abdomen pelvis without contrast HISTORY: History of perihepatic fluid collection COMPARISON: 02/19/2018 TECHNIQUE: Axial CT images of the abdomen pelvis were performed without contrast. Coronal and sagittal reformats performed Exposure: One or more of the following individualized dose reduction techniques were utilized for this examination: 1. Automated exposure control 2. Adjustment of the mA and/or kV according to patient size 3. Use of iterative reconstruction technique FINDINGS: Moderate-sized right pleural effusion is identified with the patchy right lung base airspace opacities likely atelectasis or infiltrates Evaluation of the solid organs is limited due to lack of IV contrast. Perihepatic fluid collection identified to the right of the liver has decreased in size compared to prior exam now measuring 12.6 cm in AP dimension compared to prior exam where it measured 16.5 cm in AP dimension. A pigtail drainage tubing is identified in the inferior aspect of the fluid collection. Pneumobilia is identified Cholecystectomy changes identified. The visualized noncontrasted spleen, adrenals grossly appears unremarkable The stomach is mildly distended Duodenal diverticulum identified at the junction of the second and third part of the duodenum. Small bowel is nondilated. Feces and gas noted in the colon. Multiple sigmoid colon diverticulosis. The appendix is normal Prominent right renal pelvis or right parapelvic cyst is similar to prior exam there is a small cystic structure identified in the inferior aspect of the left kidney measuring 2.1 cm could be a cyst or cystic lesion with mild bilateral perinephric fat stranding grossly similar to prior exam. There is a 1.5 structure identified inferior aspect of the right kidney. Moderate aortic atherosclerosis. Urinary bladder is mildly distended. Moderate degenerative changes lumbar spine. Ectatic changes of the infrarenal abdominal aorta. Small amount of fluid in the pelvis has decreased compared to prior exam now measuring 4.1 x 2.5 cm could be free fluid (prior 6.4 x 3.5 cm). IMPRESSION: 1. Interval decrease in size of the right perihepatic fluid collection now measuring 12.6 cm (prior 16.5 cm) with a pigtail drainage tube in the inferior aspect of the fluid collection. 2. Moderate right-sided pleural effusion with bibasilar lung airspace opacities likely atelectasis or infiltrates. 3. Pneumobilia. 4. Stable bilateral perinephric fat stranding with a 2.1 cm cystic structure in the left kidney and a 1.5 cm cystic structure identified in the right kidney. Moderate size right parapelvic cyst or hydronephrosis again identified. Electronically signed by: Santino Miner MD (03/03/2018 12:35 PM) [id number]
== END | disposition home or self-care (01) ==
LOC: RAD 11:24
PROVIDERS: ATTEND Surgery
DX: N28.1 Cyst of kidney, acquired (principal); J90 Pleural effusion, not elsewhere classified; I70.0 Atherosclerosis of aorta; N32.89 Other specified disorders of bladder; K57.10 Diverticulosis of small intestine without perforation or abscess without bleeding; I13.0 Hypertensive heart and chronic kidney disease with heart failure and stage 1 through stage 4 chronic kidney disease, or unspecified chronic kidney disease; N18.4 Chronic kidney disease, stage 4 (severe); I50.42 Chronic combined systolic (congestive) and diastolic (congestive) heart failure; E78.00 Pure hypercholesterolemia, unspecified; M17.9 Osteoarthritis of knee, unspecified; J44.9 Chronic obstructive pulmonary disease, unspecified; K21.9 Gastro-esophageal reflux disease without esophagitis; Z90.49 Acquired absence of other specified parts of digestive tract; Z87.891 Personal history of nicotine dependence
CPT/HCPCS: 74176

== ENCOUNTER → 2018-04-01 | Outpatient (CLI) | payer MEDICARE, OTHER ==
[2018-03-18 07:25] VITALS: BP 149/70
[~2018-04-01] MED LIST changes: -AMLO5TAB2 PO; +AMLO5TAB7 PO; +CONTRAST GIVEN. MC PRN; +IOHEXOL 240 MG/ML 50ML VIAL. PO ONE; +IPRA3AMP29 NEB; +POLY17PO29 PO; +POTA20TA82 PO
--- NOTE | 2018-04-01 17:07 | RAD ---
CT ABDOMEN PELVIS WO CONTRAST Indication: PERIPHEPATIC FLUID COLLECTION
PRIOR SENT Exposure: One or more of the following individualized dose reduction techniques were utilized for this examination: 1. Automated exposure control 2. Adjustment of the mA and/or kV according to patient size 3. Use of iterative reconstruction technique. Comparison: March 16, 2018 Contrast: No intravenous contrast given. No oral contrast per request. Evaluation of solid viscera, bowel and vasculature is compromised by the noncontrast technique. Lower thorax: Trace right pleural effusion, substantially decreased since prior study. Mild linear fibrosis or atelectasis. Coronary artery calcifications. Heart appears stable. Liver: Linear gas collection within the liver, unchanged, most likely pneumobilia. Small subcentimeter nodule along the capsular surface of the inferior right lobe is stable. Spleen: Stable. Pancreas: Unremarkable Adrenals: No evidence of mass. Kidneys: Exophytic lesion from the lateral left kidney is stable, likely a cyst. Low-density within the right renal pelvis and midpole of the kidney is also likely a cyst and is stable. Smaller additional renal lesions are stable. Bilateral perinephric stranding or inflammation appears to have improved slightly but persists. Urinary tracts: Tiny nonobstructive right renal calculus is stable. No hydronephrosis. Gallbladder: Surgically absent. Aorta: Calcified and ectatic, no change. Proximal iliac artery ectasia also again seen. Lymph nodes: No significant enlargement GI tract: Mild diverticulosis. No evidence of acute colitis. Mild retained stool in the colon. Appendix is normal. Reproductive organs: Prostate gland mildly enlarged and unchanged. Urinary bladder: Unremarkable. Peritoneum: Previously seen perihepatic percutaneous drainage catheter has been removed. Decrease in size of perihepatic fluid with only minimal residual. This measures 25 Hounsfield units which could indicate slight hemorrhagic or other complex content. Abdominal wall: Tiny fat-containing umbilical hernia. Spine: Degenerative spondylosis with stenosis. Bones: Degenerative changes of the hips. IMPRESSION: 1. Only minimal residual right perihepatic fluid. 2. Perinephric stranding or inflammation has slightly improved since prior study. 3. Mild pneumobilia, again seen. 4. Improved right pleural effusion with only trace residual. Electronically signed by: Channing Godinez MD (04/01/2018 5:03 PM) [id number]
== END | disposition home or self-care (01) ==
LOC: CT 11:43
PROVIDERS: ATTEND Internal Medicine
DX: R18.8 Other ascites (principal); I25.10 Atherosclerotic heart disease of native coronary artery without angina pectoris; R91.8 Other nonspecific abnormal finding of lung field; N20.0 Calculus of kidney; K57.30 Diverticulosis of large intestine without perforation or abscess without bleeding; N40.0 Benign prostatic hyperplasia without lower urinary tract symptoms; K42.9 Umbilical hernia without obstruction or gangrene; M47.899 Other spondylosis, site unspecified; M16.0 Bilateral primary osteoarthritis of hip; I13.0 Hypertensive heart and chronic kidney disease with heart failure and stage 1 through stage 4 chronic kidney disease, or unspecified chronic kidney disease; I50.9 Heart failure, unspecified; N18.4 Chronic kidney disease, stage 4 (severe); E78.5 Hyperlipidemia, unspecified; Z87.891 Personal history of nicotine dependence; Z79.01 Long term (current) use of anticoagulants
CPT/HCPCS: 74176

== ENCOUNTER 2018-09-08 13:58 | Inpatient (IN) | payer MEDICARE, OTHER ==
[~2018-09-08] VITALS: Ht 193 cm; Wt 104.4 kg
[~2018-09-08 13:58] MED LIST changes: +AMLO5TAB10 PO; -AMLO5TAB7 PO; -CONTRAST GIVEN. MC PRN; -GABA-586 PO; +GABA300C18 PO; +HYDR-3164 PO; -HYDR-971 PO; -IOHEXOL 240 MG/ML 50ML VIAL. PO ONE
--- NOTE | 2018-09-08 14:22 | PHYS DOC ---
Past Medical History Past Medical History: A-Fib, CHF, COPD, Hypertension, Renal Disease, Renal Failure, Other Additional Past Medical Histor: SEASONAL ALLERGIES Past Surgical History: Cholecystectomy, Pacemaker, Tonsillectomy Additional Past Surgical Histo: metal in R. hand/ finger,2 stents in left leg, STONES REMOVED FROM LIVER Alcohol Use: Rarely Drug Use: None Adult General Chief Complaint Chief Complaint: SHORTNESS OF BREATH HPI HPI Patient is a 78 year old presented to ER today for evaluation of trouble breathing with exertion that getting worse the last 3 dayS. Patient had trouble breathing for about 2 weeks, however his symptoms get worse lately. Patient complaint of nonproductive cough. Patient DENIED any chest pain or any fever. he has history of COPD, former smoker. Patient is on oxygen only as needed. He has history CHF, he was on scheduled dose of lasix however his renal function was not good so his doctor instructed him to only take lasix whenever he needed. He felt like he lost some weight lately. He denies any swelling to lower extremity. Review of Systems Review of Systems Constitutional: Denies fever or chills [] Eyes: Denies change in visual acuity, redness, or eye pain [] HENT: Denies nasal congestion or sore throat [] Respiratory: positive for nonproductive cough and exertional shortness of breath [] Cardiovascular: No additional information not addressed in HPI [] GI: Denies abdominal pain, nausea, vomiting, bloody stools or diarrhea [] : Denies dysuria or hematuria [] Musculoskeletal: Denies back pain or joint pain [] Integument: Denies rash or skin lesions [] Neurologic: Denies headache, focal weakness or sensory changes [] Endocrine: Denies polyuria or polydipsia [] All other systems were reviewed and found to be within normal limits, except as documented in this note. Current Medications Current Medications Current Medications Medications (Trade) Dose Ordered Sig/Patricia Start Time Stop Time Status Last Admin Dose Admin Albuterol/ Ipratropium (Duoneb) 3 ml 1X ONCE 09/08/18 14:30 09/08/18 14:31 DC Methylprednisolone Sodium Succinate (SOLU-Medrol 125MG VIAL) 125 mg 1X ONCE 09/08/18 14:30 09/08/18 14:31 DC 09/08/18 15:27 125 MG Allergies Allergies Allergies Coded Allergies Type Severity Reaction Last Updated Verified No Known Drug Allergies 8/3/18 No Physical Exam Physical Exam Constitutional: Well developed, well nourished, no acute distress, non-toxic appearance. [] HENT: Normocephalic, atraumatic, bilateral external ears normal, oropharynx moist, no oral exudates, nose normal. [] Eyes: PERRLA, EOMI, conjunctiva normal, no discharge. [] Neck: Normal range of motion, no tenderness, supple, no stridor. [] Cardiovascular:Heart rate regular rhythm, no murmur [] Lungs & Thorax: lung sounds with diffused expirational wheezing. Abdomen: Bowel sounds normal, soft, no tenderness, no masses, no pulsatile masses. [] Skin: Warm, dry, no erythema, no rash. [] Back: No tenderness, no CVA tenderness. [] Extremities: No tenderness, no cyanosis, no clubbing, ROM intact, no edema. [] Neurologic: Alert and oriented X 3, normal motor function, normal sensory function, no focal deficits noted. [] Psychologic: Affect normal, judgement normal, mood normal. [] Current Patient Data Vital Signs Vital Signs Date Time Temp Pulse Resp B/P (MAP) Pulse Ox O2 Delivery O2 Flow Rate FiO2 09/08/18 14:00 98.3 80 22 111/66 (81) 97 Nasal Cannula 2.0 98.3 Lab Values Laboratory Tests Test 09/08/18 15:15 White Blood Count 11.1 x10^3/uL (4.0-11.0) H Red Blood Count 3.45 x10^6/uL (4.30-5.70) L Hemoglobin 10.9 g/dL (13.0-17.5) L Hematocrit 33.3 % (39.0-53.0) L Mean Corpuscular Volume 96 fL (79-100) Mean Corpuscular Hemoglobin 32 pg (25-35) Mean Corpuscular Hemoglobin Concent 33 g/dL (31-37) Red Cell Distribution Width 14.9 % (11.5-14.5) H Platelet Count 114 x10^3/uL (140-400) L Neutrophils (%) (Auto) 80 % (31-73) H Lymphocytes (%) (Auto) 9 % (24-48) L Monocytes (%) (Auto) 9 % (0-9) Eosinophils (%) (Auto) 1 % (0-3) Basophils (%) (Auto) 1 % (0-3) Neutrophils # (Auto) 8.9 x10^3uL (1.8-7.7) H Lymphocytes # (Auto) 1.0 x10^3/uL (1.0-4.8) Monocytes # (Auto) 1.0 x10^3/uL (0.0-1.1) Eosinophils # (Auto) 0.1 x10^3/uL (0.0-0.7) Basophils # (Auto) 0.1 x10^3/uL (0.0-0.2) D-Dimer (Yanelis) 0.70 ug/mlFEU (0.00-0.50) H Sodium Level 142 mmol/L (136-145) Potassium Level 4.7 mmol/L (3.5-5.1) Chloride Level 107 mmol/L (98-107) Carbon Dioxide Level 28 mmol/L (21-32) Anion Gap 7 (6-14) Blood Urea Nitrogen 44 mg/dL (8-26) H Creatinine 1.6 mg/dL (0.7-1.3) H Estimated GFR (Cockcroft-Gault) 42.1 BUN/Creatinine Ratio 28 (6-20) H Glucose Level 114 mg/dL (70-99) H Calcium Level 10.8 mg/dL (8.5-10.1) H Total Bilirubin 1.4 mg/dL (0.2-1.0) H Aspartate Amino Transferase (AST) 25 U/L (15-37) Alanine Aminotransferase (ALT) 36 U/L (16-63) Alkaline Phosphatase 78 U/L (46-116) Creatine Kinase 57 U/L (39-308) Creatine Kinase MB (Mass) 1.7 ng/mL (0.0-3.6) Creatine Kinase MB Relative Index % (0-4) Troponin I Quantitative 0.101 ng/mL (0.000-0.055) PI-Svq-C-Type Natriuretic Peptide 2122 pg/mL (0-449) H Total Protein 6.7 g/dL (6.4-8.2) Albumin 3.0 g/dL (3.4-5.0) L Albumin/Globulin Ratio 0.8 (1.0-1.7) L Laboratory Tests 09/08/18 15:15 Laboratory Tests 09/08/18 15:15 EKG EKG EKG WAS READ BY THIS PHYSICIAN AT 1435, SINUS RHYTHM, NO STEMI, RATE OF 70 BPM , PVC.] Radiology/Procedures Radiology/Procedures [][facility] [address] [place] [address] IMAGING REPORT Signed PATIENT: JOSEP SIMS ACCOUNT: [id number] : 1940 LOCATION: ER AGE: 78 SEX: M EXAM STATUS: REG ER ORD. PHYSICIAN: BIRGIT CLIFFORD DO REASON: soa PROCEDURE: PORTABLE CHEST 1V Portable chest, 09/08/2018: HISTORY: Cough, congestion, shortness of breath Comparison is made to a study from 03/15/2018. A left-sided transvenous pacemaker remains in place with 2 leads extending into the right heart. The heart is mildly enlarged. There is calcific plaquing of the aorta. The pulmonary vascularity is within normal limits. Right-sided pleural fluid evident on the previous study has resolved. No acute infiltrate or pleural fluid is currently seen. IMPRESSION: 1. Mild cardiomegaly. 2. No acute cardiopulmonary abnormality is detected. Electronically signed by: Corbin Ruelas MD (09/08/2018 2:52 PM) [facility] DICTATED and SIGNED BY: CORBIN RUELAS MD DATE: 09/08/18 0000 Course & Med Decision Making Course & Med Decision Making Pertinent Labs and Imaging studies reviewed. (See chart for details) [] Dragon Disclaimer Dragon Disclaimer This electronic medical record was generated, in whole or in part, using a voice recognition dictation system. Departure Departure Impression: Primary Impression: CHF exacerbation Additional Impression: COPD with exacerbation Disposition: ADMITTED INPATIENT Admitting Physician: Other (Dr. Jatin Snow) Condition: STABLE Referrals: UNKNOWN PCP NAME (PCP) Problem Qualifiers BIRGIT CLIFFORD DO Sep 08, 2018 14:22
[2018-09-08] MEDS ORDERED: IPRATRPIUM/ALBUTEROL 0.5/2.5MG 3 ML NEBU. NEB ONE (14:30)
[2018-09-08] MEDS ORDERED: methylPREDNISolone SOD SUCC PF 125 MG/2 ML VIAL. IV ONE (14:30)
--- NOTE | 2018-09-08 14:55 | RAD ---
Portable chest, 09/08/2018: HISTORY: Cough, congestion, shortness of breath Comparison is made to a study from 03/15/2018. A left-sided transvenous pacemaker remains in place with 2 leads extending into the right heart. The heart is mildly enlarged. There is calcific plaquing of the aorta. The pulmonary vascularity is within normal limits. Right-sided pleural fluid evident on the previous study has resolved. No acute infiltrate or pleural fluid is currently seen. IMPRESSION: 1. Mild cardiomegaly. 2. No acute cardiopulmonary abnormality is detected. Electronically signed by: Corbin Ruelas MD (09/08/2018 2:52 PM) [facility]
[2018-09-08 15:25] LABS: BASO # 0.1 x10^3/uL (0.0-0.2); BASO % 1 % (0-3); EOS # 0.1 x10^3/uL (0.0-0.7); EOS % 1 % (0-3); HEMATOCRIT 33.3 % (39.0-53.0); HEMOGLOBIN 10.9 g/dL (13.0-17.5); LYMPH % 9 % (24-48); MEAN CORPUSCULAR HEMOGLOBIN 32 pg (25-35); MEAN CORPUSCULAR HGB CONC 33 g/dL (31-37); MEAN CORPUSCULAR VOLUME 96 fL (79-100); MONO % 9 % (0-9); NEUT # 8.9 x10^3uL (1.8-7.7); NEUT % 80 % (31-73); PLATELET COUNT 114 x10^3/uL (140-400); RED BLOOD COUNT 3.45 x10^6/uL (4.30-5.70); RED CELL DISTRIBUTION WIDTH 14.9 % (11.5-14.5); WHITE BLOOD COUNT 11.1 x10^3/uL (4.0-11.0)
[2018-09-08 15:38] LABS: CALCIUM 10.8 mg/dL (8.5-10.1); CREATININE 1.6 mg/dL (0.7-1.3); GFR 42.1; POTASSIUM 4.7 mmol/L (3.5-5.1)
[2018-09-08 15:45] LABS: ALBUMIN/GLOBULIN RATIO 0.8 (1.0-1.7); TOTAL BILIRUBIN 1.4 mg/dL (0.2-1.0); TOTAL PROTEIN 6.7 g/dL (6.4-8.2)
[2018-09-08 15:52] LABS: CREATINE KINASE 57 U/L (39-308)
--- NOTE | 2018-09-08 16:11 | EKG ---
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
[2018-09-08] MEDS ORDERED: ONDANSETRON PF 4 MG/2 ML VIAL. IV PRN ×2 (17:30→17:45)
--- NOTE | 2018-09-08 17:40 | PDOC1 ---
History and Physical Date of Admission Date of Admission DATE: 09/08/18 TIME: 17:16 Identification/Chief Complaint Chief Complaint Shortness of breath Source Source: Patient History of Present Illness History of Present Illness Mr Quintero is a 78yo m w/ PMHx CHF, afib, PPM, CAD, HTN, COPD who presents with shortness of breath at home for the past 3-5 days and decrease in O2 sats with activity into the 80s and upper 70s on his home pulse oximetry, was also hypoxic 84-88% in the ED, placed on O2. Unclear if weight gain, he states he thinks he actually lost a pound in the past week; feet/legs not much more edematous recently. NT-proBNP of 2122 with Cr of 1.6 and troponin I of 0.101. CXR with cardiomegaly. Mildy anemic. Calcium 10.8. Past Medical History Cardiovascular: AFIB, CAD, CHF, HTN, Hyperlipidemia, Other Pulmonary: COPD, Pneumonia CENTRAL NERVOUS SYSTEM: Other GI: Constipation, Hemorrhoids Heme/Onc: Anemia NOS Hepatobiliary: No pertinent hx Psych: Anxiety, Depression Musculoskeletal: Osteoarthritis Rheumatologic: No pertinent hx Infectious disease: No pertinent hx Renal/: Chronic renal insuff, Benign prostatic enlarg. Endocrine: No pertinent hx Past Surgical History Past Surgical History: Pacemaker, Cholecystectomy, Cataract Removal, Hernia Repair Family History Family History: Heart Disease Social History Smoke: No ALCOHOL: rare Drugs: None Current Problem List Problem List Problems Medical Problems: (1) CHF exacerbation Status: Acute (2) COPD with exacerbation Status: Acute Current Medications Current Medications Current Medications Albuterol/ Ipratropium (Duoneb) 3 ml 1X ONCE NEB ; Start 09/08/18 at 14:30; Stop 09/08/18 at 14:31; Status DC Methylprednisolone Sodium Succinate (SOLU-Medrol 125MG VIAL) 125 mg 1X ONCE IV Last administered on 09/08/18at 15:27; Start 09/08/18 at 14:30; Stop 09/08/18 at 14:31; Status DC Active Scripts Active Reported Potassium Chloride 20 Meq Tablet.er 20 Meq PO DAILY Lasix (Furosemide) 40 Mg Tablet 40 Mg PO DAILY Duoneb 0.5-3(2.5) Mg/3 Ml (Albuterol/Ipratropium) 3 Ml Ampul.neb 3 Ml NEB QID Miralax (Polyethylene Glycol 3350) 17 Gm Powd.pack 1 Packet PO BID Ferrous Sulfate 325 Mg Tablet 1 Tab PO BID Ascorbic Acid 500 Mg Tablet 500 Mg PO BID Super B Complex-Vitamin C (B Complex With Vitamin C) 1 Each Tablet 1 Each PO Warfarin Sodium 5 Mg Tablet 7.5 Mg PO QTUTHSA Amiodarone Hcl 200 Mg Tablet 100 Mg PO DAILY Metoprolol Succinate ( Xl ) (Metoprolol Succinate) 25 Mg Tab.er.24h 1 Tab PO QPM Calcitriol 0.25 Mcg Capsule 0.25 Mcg PO QM-W-F Warfarin Sodium 5 Mg Tablet 5 Mg PO QMWF Loratadine 10 Mg Tablet 10 Mg PO QHS Tamsulosin Hcl 0.4 Mg Cap.er.24h 0.4 Mg PO QHS Atorvastatin Calcium 10 Mg Tablet 10 Mg PO HS Flonase (Fluticasone Propionate) 16 Gm [place].susp 2 [place] NS BID Allergies Allergies: Coded Allergies: No Known Drug Allergies (Unverified , 02/05/18) ROS General: YES: Fatigue, Malaise; No: Chills, Night Sweats, Appetite, Other PSYCHOLOGICAL ROS: No: Anxiety, Behavioral Disorder, Concentration difficultie , Decreased libido, Depression, Disorientation, Hallucinations, Hostility, Irritablity, Memory difficulties, Mood Swings, Obsessive thoughts, Physical abuse, Sexual abuse, Sleep disturbances, Suicidal ideation, Other Eyes: No Blurry vision, No Decreased vision, No Double vision, No Dry eyes, No Excessive tearing, No Eye Pain, No Itchy Eyes, No Loss of vision, No Photophobia , No Scotomata, No Uses contacts, No Uses glasses, No Other HEENT: No: Heacaches, Visual Changes, Hearing change, Nasal congestion, Nasal discharge, Oral lesions, Sinus pain, Sore Throat, Epistaxis, Sneezing, Snoring, Tinnitus, Vertigo, Vocal changes, Other ALLERGY AND IMMUNOLOGY: No: Hives, Insect Bite Sensitivity, Itchy/Watery Eyes, Nasal Congestion, Post Nasal Drip, Seasonal Allergies, Other Respiratory: YES: Cough, Shortness of breath, SOB with excertion; No: Hemoptysis, Orthopnea, Pleuritic Pain, Sputum Changes, Stridor, Tachypnea , Wheezing, Other Cardiovascular: yes Palpitations, yes Paroxysmal Noc. Dyspnea, yes Edema Gastrointestinal: No Nausea, No Vomiting, No Abdominal Pain, No Diarrhea, No Constipation, No Melena, No Hematochezia, No Other Genitourinary: No Dysuria, No Frequency, No Incontinence, No Hematuria, No Retention, No Discharge, No Urgency, No Pain, No Flank Pain, No Other, No , No , No , No , No , No , No Musculoskeletal: No Gait Disturbance, No Joint Pain, No Joint Stiffness, No Joint Swelling, No Muscle Pain, No Muscular Weakness, No Pain In:, No Swelling In:, No Other Neurological: No Behavorial Changes, No Bowel/Bladder ControlChng, No Confusion , No Dizziness, No Gait Disturbance, No Headaches, No Impaired Coord/balance, No Memory Loss, No Numbness/Tingling, No Seizures, No Speech Problems, No Tremors, No Visual Changes, No Weakness, No Other Skin: No Dry Skin, No Eczema, No Hair Changes, No Lumps, No Mole Changes, No Mottling, No Nail Changes, No Pruritus, No Rash, No Skin Lesion Changes, No Other, No Acne Physical Exam General: Alert, Oriented X3, Cooperative, No acute distress HEENT: Atraumatic, PERRLA, EOMI, Mucous membr. moist/pink Lungs: Other (Bibasilar crackles, scattered wheezes) Abdomen: Normal bowel sounds, Soft, No tenderness, No hepatosplenomegaly, No masses Extremities: No clubbing, No cyanosis, Normal pulses, No tenderness/swelling, Other (Scant edema) Skin: No rashes, No breakdown, No significant lesion Neuro: Normal gait, Normal speech, Strength at 5/5 X4 ext, Normal tone, Sensation intact, Cranial nerves 3-12 NL, Reflexes 2+ Vitals Vitals Vital Signs Date Time Temp Pulse Resp B/P (MAP) Pulse Ox O2 Delivery O2 Flow Rate FiO2 09/08/18 14:00 98.3 80 22 111/66 (81) 97 Nasal Cannula 2.0 98.3 Labs Labs Laboratory Tests Test 09/08/18 15:15 White Blood Count 11.1 x10^3/uL (4.0-11.0) Red Blood Count 3.45 x10^6/uL (4.30-5.70) Hemoglobin 10.9 g/dL (13.0-17.5) Hematocrit 33.3 % (39.0-53.0) Mean Corpuscular Volume 96 fL (79-100) Mean Corpuscular Hemoglobin 32 pg (25-35) Mean Corpuscular Hemoglobin Concent 33 g/dL (31-37) Red Cell Distribution Width 14.9 % (11.5-14.5) Platelet Count 114 x10^3/uL (140-400) Neutrophils (%) (Auto) 80 % (31-73) Lymphocytes (%) (Auto) 9 % (24-48) Monocytes (%) (Auto) 9 % (0-9) Eosinophils (%) (Auto) 1 % (0-3) Basophils (%) (Auto) 1 % (0-3) Neutrophils # (Auto) 8.9 x10^3uL (1.8-7.7) Lymphocytes # (Auto) 1.0 x10^3/uL (1.0-4.8) Monocytes # (Auto) 1.0 x10^3/uL (0.0-1.1) Eosinophils # (Auto) 0.1 x10^3/uL (0.0-0.7) Basophils # (Auto) 0.1 x10^3/uL (0.0-0.2) Sodium Level 142 mmol/L (136-145) Potassium Level 4.7 mmol/L (3.5-5.1) Chloride Level 107 mmol/L (98-107) Carbon Dioxide Level 28 mmol/L (21-32) Anion Gap 7 (6-14) Blood Urea Nitrogen 44 mg/dL (8-26) Creatinine 1.6 mg/dL (0.7-1.3) Estimated GFR (Cockcroft-Gault) 42.1 BUN/Creatinine Ratio 28 (6-20) Glucose Level 114 mg/dL (70-99) Calcium Level 10.8 mg/dL (8.5-10.1) Total Bilirubin 1.4 mg/dL (0.2-1.0) Aspartate Amino Transf (AST/SGOT) 25 U/L (15-37) Alanine Aminotransferase (ALT/SGPT) 36 U/L (16-63) Alkaline Phosphatase 78 U/L (46-116) Creatine Kinase 57 U/L (39-308) Creatine Kinase MB (Mass) 1.7 ng/mL (0.0-3.6) Creatine Kinase MB Relative Index % (0-4) Troponin I Quantitative 0.101 ng/mL (0.000-0.055) NC-Uvw-V-Type Natriuretic Peptide 2122 pg/mL (0-449) Total Protein 6.7 g/dL (6.4-8.2) Albumin 3.0 g/dL (3.4-5.0) Albumin/Globulin Ratio 0.8 (1.0-1.7) Laboratory Tests Test 09/08/18 15:15 White Blood Count 11.1 x10^3/uL (4.0-11.0) Red Blood Count 3.45 x10^6/uL (4.30-5.70) Hemoglobin 10.9 g/dL (13.0-17.5) Hematocrit 33.3 % (39.0-53.0) Mean Corpuscular Volume 96 fL (79-100) Mean Corpuscular Hemoglobin 32 pg (25-35) Mean Corpuscular Hemoglobin Concent 33 g/dL (31-37) Red Cell Distribution Width 14.9 % (11.5-14.5) Platelet Count 114 x10^3/uL (140-400) Neutrophils (%) (Auto) 80 % (31-73) Lymphocytes (%) (Auto) 9 % (24-48) Monocytes (%) (Auto) 9 % (0-9) Eosinophils (%) (Auto) 1 % (0-3) Basophils (%) (Auto) 1 % (0-3) Neutrophils # (Auto) 8.9 x10^3uL (1.8-7.7) Lymphocytes # (Auto) 1.0 x10^3/uL (1.0-4.8) Monocytes # (Auto) 1.0 x10^3/uL (0.0-1.1) Eosinophils # (Auto) 0.1 x10^3/uL (0.0-0.7) Basophils # (Auto) 0.1 x10^3/uL (0.0-0.2) Sodium Level 142 mmol/L (136-145) Potassium Level 4.7 mmol/L (3.5-5.1) Chloride Level 107 mmol/L (98-107) Carbon Dioxide Level 28 mmol/L (21-32) Anion Gap 7 (6-14) Blood Urea Nitrogen 44 mg/dL (8-26) Creatinine 1.6 mg/dL (0.7-1.3) Estimated GFR (Cockcroft-Gault) 42.1 BUN/Creatinine Ratio 28 (6-20) Glucose Level 114 mg/dL (70-99) Calcium Level 10.8 mg/dL (8.5-10.1) Total Bilirubin 1.4 mg/dL (0.2-1.0) Aspartate Amino Transf (AST/SGOT) 25 U/L (15-37) Alanine Aminotransferase (ALT/SGPT) 36 U/L (16-63) Alkaline Phosphatase 78 U/L (46-116) Creatine Kinase 57 U/L (39-308) Creatine Kinase MB (Mass) 1.7 ng/mL (0.0-3.6) Creatine Kinase MB Relative Index % (0-4) Troponin I Quantitative 0.101 ng/mL (0.000-0.055) LS-Jim-R-Type Natriuretic Peptide 2122 pg/mL (0-449) Total Protein 6.7 g/dL (6.4-8.2) Albumin 3.0 g/dL (3.4-5.0) Albumin/Globulin Ratio 0.8 (1.0-1.7) Images Images CXR - 1. Mild cardiomegaly. 2. No acute cardiopulmonary abnormality is detected. VTE Prophylaxis Ordered VTE Prophylaxis Devices: Yes VTE Pharmacological Prophylaxi: Yes Assessment/Plan Assessment/Plan A/P: Acute Hypoxia - with significant desaturations, will check INR, d dimer positive , will check VQ scan, consult pulmonology. This does not appear to be a severe CHF exacerbation, but likely a mild one. 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 Ejection fraction of 50-55% on most recent echocardiogram. will start IV diuresis. Defer to cardiology on further diuresis with monitoring of renal function. Paroxysmal atrial fibrillation - currently irregular on monitor. Treated with amiodarone and anticoagulation. Continue telemetry. Continue present treatment. Sick sinus syndrome and permanent pacemaker - appears to be capturing on monitor. Will monitor Hyperlipidemia - Continue medical treatment CKD - Cr 1.6, does not seem to have current JAYDON. Will consult nephrology Hypercalcemia - 10.8. Is on cincacalcet, consulted nephrology FEN - Cardiac diet, 2L fluid restriction PPX - on warfarin, check INR FULL CODE Inpatient for acute hypoxia for at least 2 midnights. KAREEM HARRIS MD Sep 08, 2018 17:40
[2018-09-08] MEDS ORDERED: FUROSEMIDE 20 MG/2 ML VIAL. IVP ONE (17:45)
[2018-09-08] MEDS ORDERED: ACETAMINOPHEN 325 MG TABLET. PO PRN (17:45)
[2018-09-08] MEDS ORDERED: LACTULOSE 20 GM/30 ML SOLUTION. PO PRN (17:45)
[2018-09-08 18:00] VITALS: BP 138/74
[2018-09-08] MEDS ORDERED: HEPARIN for SUB-Q USE 5,000 UNIT/ML VIAL. SQ SCH (18:00)
[2018-09-08 18:05] VITALS: BP 131/72
[2018-09-08 18:15] VITALS: BP 111/58
[2018-09-08] MEDS: FERROUS SULFATE 325 MG TABLET. PO SCH (18:15)
--- NOTE | 2018-09-08 18:20 | NUR ---
Admission: Patient admitted from the ER. Arrived to room via gurney. Oriented patient to room. at bedside. Patients provided a list of home medications, copy placed in chart. Vitals assessed and stable. Admission to be completed by next shift.
[2018-09-08 18:24] LABS: BILIRUBIN,URINE NEGATIVE (NEG); CLARITY,URINE CLEAR; COLOR,URINE YELLOW; NITRITE,URINE NEGATIVE (NEG); PROTEIN,URINE NEGATIVE (NEG-TRACE); UROBILINOGEN,URINE 0.2 mg/dL (0.2 mg/dL)
[2018-09-08 19:03] LABS: BACTERIA,URINE 0 /HPF (0-FEW); RBC,URINE 0 /HPF (0-2); SQUAMOUS EPITHELIAL CELL,UR OCC /LPF
[2018-09-08 19:27] VITALS: BP 111/48
[2018-09-08] MEDS: IPRATRPIUM/ALBUTEROL 0.5/2.5MG 3 ML NEBU. NEB SCH (19:30)
[2018-09-08] MEDS: METOPROLOL SUCC 24HR ER 25 MG TAB.ER.24H. PO SCH (19:43)
[2018-09-08] MEDS ORDERED: IPRATRPIUM/ALBUTEROL 0.5/2.5MG 3 ML NEBU. NEB SCH (20:00)
[2018-09-08] MEDS: ATORVASTATIN CALCIUM 10 MG TABLET. PO SCH (21:00)
[2018-09-08] MEDS: ASCORBIC ACID 500 MG TABLET PO SCH (21:35)
[2018-09-08] MEDS: LORazepam 0.5 MG TABLET PO PRN (21:35)
[2018-09-08] MEDS: TAMSULOSIN 0.4 MG CAP.ER.24H. PO SCH (21:35)
[2018-09-08] MEDS: SENNOSIDES/DOCUSATE 8.6/50MG TABLET. PO SCH (21:36)
[2018-09-08] MEDS: CETIRIZINE HCL 10 MG TABLET. PO SCH (21:36)
[2018-09-08] MEDS: POLYETHYLENE GLYCOL 3350 17 GM PACKET. PO SCH (21:37)
[2018-09-08] MEDS: FLUTICASONE 50MCG/NASAL SPRAY 16GM BOTTLE. NS SCH (21:37)
[2018-09-08 22:24] VITALS: BP 125/81
[2018-09-09] VITALS (7 sets, daily range): BP systolic 118–132; BP diastolic 57–69
[2018-09-09 04:14] LABS: BASO % 0 % (0-3); EOS % 0 % (0-3); HEMATOCRIT 31.7 % (39.0-53.0); HEMOGLOBIN 10.5 g/dL (13.0-17.5); LYMPH # 0.4 x10^3/uL (1.0-4.8); LYMPH % 6 % (24-48); MEAN CORPUSCULAR HEMOGLOBIN 32 pg (25-35); MEAN CORPUSCULAR HGB CONC 33 g/dL (31-37); MEAN CORPUSCULAR VOLUME 96 fL (79-100); MONO # 0.2 x10^3/uL (0.0-1.1); MONO % 3 % (0-9); NEUT # 6.1 x10^3uL (1.8-7.7); NEUT % 92 % (31-73); PLATELET COUNT 107 x10^3/uL (140-400); RED CELL DISTRIBUTION WIDTH 14.7 % (11.5-14.5); WHITE BLOOD COUNT 6.7 x10^3/uL (4.0-11.0)
[2018-09-09 04:21] LABS: PROTHROMBIN TIME PATIENT 34.3 SEC (11.7-14.0)
[2018-09-09 05:38] LABS: ALBUMIN 2.8 g/dL (3.4-5.0); CALCIUM 10.6 mg/dL (8.5-10.1); CREATININE 1.6 mg/dL (0.7-1.3); GFR 42.1; PHOSPHORUS 2.7 mg/dL (2.6-4.7); POTASSIUM 5.1 mmol/L (3.5-5.1)
--- NOTE | 2018-09-09 07:34 | PDOC ---
PROGRESS NOTES Chief Complaint Chief Complaint A/P: Acute Hypoxia - with significant desaturations, will check INR, d dimer positive , will check VQ scan, consult pulmonology. This does not appear to be a severe CHF exacerbation, but likely a mild one. 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 Ejection fraction of 50-55% on most recent echocardiogram. will start IV diuresis. Defer to cardiology on further diuresis with monitoring of renal function. Paroxysmal atrial fibrillation - currently irregular on monitor. Treated with amiodarone and anticoagulation. Continue telemetry. Continue present treatment. Sick sinus syndrome and permanent pacemaker - appears to be capturing on monitor. Will monitor Hyperlipidemia - Continue medical treatment CKD - Cr 1.6, does not seem to have current JAYDON. Will consult nephrology Hypercalcemia - 10.8. Is on cincacalcet, consulted nephrology FEN - Cardiac diet, 2L fluid restriction PPX - on warfarin, check INR FULL CODE Inpatient for acute hypoxia for d/c tomorrow History of Present Illness History of Present Illness Mr Quintero is a 78yo m w/ PMHx CHF, afib, PPM, CAD, HTN, COPD who presents with shortness of breath at home for the past 3-5 days and decrease in O2 sats with activity into the 80s and upper 70s on his home pulse oximetry, was also hypoxic 84-88% in the ED, placed on O2. Unclear if weight gain, he states he thinks he actually lost a pound in the past week; feet/legs not much more edematous recently. NT-proBNP of 2122 with Cr of 1.6 and troponin I of 0.101. CXR with cardiomegaly. Mildly anemic. Calcium 10.8 Overnight felt better more with nebs than anything else. Procalcitonin negative. UOP really unchanged from his baseline. Feels only slightly better. awaiting VQ Plan: Treat COPD exacerbation, wean O2 as tolerated Vitals Vitals Vital Signs Date Time Temp Pulse Resp B/P (MAP) Pulse Ox O2 Delivery O2 Flow Rate FiO2 09/09/18 03:40 98.0 74 16 128/66 (86) 97 Nasal Cannula 2.0 98.0 Physical Exam General: Alert, Oriented X3, Cooperative, No acute distress Lungs: Clear Abdomen: Normal bowel sounds, Soft, No tenderness, No hepatosplenomegaly, No masses Extremities: No clubbing, No cyanosis, Normal pulses, No tenderness/swelling, Other (Scant edema) Skin: No rashes, No breakdown, No significant lesion Labs LABS Laboratory Tests Test 09/08/18 15:15 09/08/18 17:57 09/09/18 03:20 09/09/18 03:25 White Blood Count 11.1 x10^3/uL (4.0-11.0) 6.7 x10^3/uL (4.0-11.0) Red Blood Count 3.45 x10^6/uL (4.30-5.70) 3.30 x10^6/uL (4.30-5.70) Hemoglobin 10.9 g/dL (13.0-17.5) 10.5 g/dL (13.0-17.5) Hematocrit 33.3 % (39.0-53.0) 31.7 % (39.0-53.0) Mean Corpuscular Volume 96 fL (79-100) 96 fL (79-100) Mean Corpuscular Hemoglobin 32 pg (25-35) 32 pg (25-35) Mean Corpuscular Hemoglobin Concent 33 g/dL (31-37) 33 g/dL (31-37) Red Cell Distribution Width 14.9 % (11.5-14.5) 14.7 % (11.5-14.5) Platelet Count 114 x10^3/uL (140-400) 107 x10^3/uL (140-400) Neutrophils (%) (Auto) 80 % (31-73) 92 % (31-73) Lymphocytes (%) (Auto) 9 % (24-48) 6 % (24-48) Monocytes (%) (Auto) 9 % (0-9) 3 % (0-9) Eosinophils (%) (Auto) 1 % (0-3) 0 % (0-3) Basophils (%) (Auto) 1 % (0-3) 0 % (0-3) Neutrophils # (Auto) 8.9 x10^3uL (1.8-7.7) 6.1 x10^3uL (1.8-7.7) Lymphocytes # (Auto) 1.0 x10^3/uL (1.0-4.8) 0.4 x10^3/uL (1.0-4.8) Monocytes # (Auto) 1.0 x10^3/uL (0.0-1.1) 0.2 x10^3/uL (0.0-1.1) Eosinophils # (Auto) 0.1 x10^3/uL (0.0-0.7) 0.0 x10^3/uL (0.0-0.7) Basophils # (Auto) 0.1 x10^3/uL (0.0-0.2) 0.0 x10^3/uL (0.0-0.2) Prothrombin Time 34.0 SEC (11.7-14.0) 34.3 SEC (11.7-14.0) Prothromb Time International Ratio 3.4 (0.8-1.1) 3.4 (0.8-1.1) D-Dimer (Yanelis) 0.70 ug/mlFEU (0.00-0.50) Sodium Level 142 mmol/L (136-145) 140 mmol/L (136-145) Potassium Level 4.7 mmol/L (3.5-5.1) 5.1 mmol/L (3.5-5.1) Chloride Level 107 mmol/L (98-107) 105 mmol/L (98-107) Carbon Dioxide Level 28 mmol/L (21-32) 26 mmol/L (21-32) Anion Gap 7 (6-14) 9 (6-14) Blood Urea Nitrogen 44 mg/dL (8-26) 47 mg/dL (8-26) Creatinine 1.6 mg/dL (0.7-1.3) 1.6 mg/dL (0.7-1.3) Estimated GFR (Cockcroft-Gault) 42.1 42.1 BUN/Creatinine Ratio 28 (6-20) Glucose Level 114 mg/dL (70-99) 150 mg/dL (70-99) Calcium Level 10.8 mg/dL (8.5-10.1) 10.6 mg/dL (8.5-10.1) Total Bilirubin 1.4 mg/dL (0.2-1.0) Aspartate Amino Transf (AST/SGOT) 25 U/L (15-37) Alanine Aminotransferase (ALT/SGPT) 36 U/L (16-63) Alkaline Phosphatase 78 U/L (46-116) Creatine Kinase 57 U/L (39-308) Creatine Kinase MB (Mass) 1.7 ng/mL (0.0-3.6) Creatine Kinase MB Relative Index % (0-4) Troponin I Quantitative 0.101 ng/mL (0.000-0.055) PS-Lri-Q-Type Natriuretic Peptide 2122 pg/mL (0-449) Total Protein 6.7 g/dL (6.4-8.2) Albumin 3.0 g/dL (3.4-5.0) 2.8 g/dL (3.4-5.0) Albumin/Globulin Ratio 0.8 (1.0-1.7) Urine Color Yellow Urine Clarity Clear Urine pH 5.0 Urine Specific [place] 1.020 Urine Protein Negative mg/dL (NEG-TRACE) Urine Glucose (UA) Negative mg/dL (NEG) Urine Ketones (Stick) Negative mg/dL (NEG) Urine Blood Negative (NEG) Urine Nitrite Negative (NEG) Urine Bilirubin Negative (NEG) Urine Urobilinogen Dipstick 0.2 mg/dL (0.2 mg/dL) Urine Leukocyte Esterase Negative (NEG) Urine RBC 0 /HPF (0-2) Urine WBC 1-4 /HPF (0-4) Urine Squamous Epithelial Cells Occ /LPF Urine Bacteria 0 /HPF (0-FEW) Urine Mucus Mod /LPF Phosphorus Level 2.7 mg/dL (2.6-4.7) Assessment and Plan Assessmemt and Plan Problems Medical Problems: (1) CHF exacerbation Status: Acute (2) COPD with exacerbation Status: Acute Comment Review of Relevant I have reviewed the following items aron (where applicable) has been applied. Labs Laboratory Tests Test 09/08/18 15:15 09/08/18 17:57 09/09/18 03:20 09/09/18 03:25 White Blood Count 11.1 x10^3/uL (4.0-11.0) 6.7 x10^3/uL (4.0-11.0) Red Blood Count 3.45 x10^6/uL (4.30-5.70) 3.30 x10^6/uL (4.30-5.70) Hemoglobin 10.9 g/dL (13.0-17.5) 10.5 g/dL (13.0-17.5) Hematocrit 33.3 % (39.0-53.0) 31.7 % (39.0-53.0) Mean Corpuscular Volume 96 fL (79-100) 96 fL (79-100) Mean Corpuscular Hemoglobin 32 pg (25-35) 32 pg (25-35) Mean Corpuscular Hemoglobin Concent 33 g/dL (31-37) 33 g/dL (31-37) Red Cell Distribution Width 14.9 % (11.5-14.5) 14.7 % (11.5-14.5) Platelet Count 114 x10^3/uL (140-400) 107 x10^3/uL (140-400) Neutrophils (%) (Auto) 80 % (31-73) 92 % (31-73) Lymphocytes (%) (Auto) 9 % (24-48) 6 % (24-48) Monocytes (%) (Auto) 9 % (0-9) 3 % (0-9) Eosinophils (%) (Auto) 1 % (0-3) 0 % (0-3) Basophils (%) (Auto) 1 % (0-3) 0 % (0-3) Neutrophils # (Auto) 8.9 x10^3uL (1.8-7.7) 6.1 x10^3uL (1.8-7.7) Lymphocytes # (Auto) 1.0 x10^3/uL (1.0-4.8) 0.4 x10^3/uL (1.0-4.8) Monocytes # (Auto) 1.0 x10^3/uL (0.0-1.1) 0.2 x10^3/uL (0.0-1.1) Eosinophils # (Auto) 0.1 x10^3/uL (0.0-0.7) 0.0 x10^3/uL (0.0-0.7) Basophils # (Auto) 0.1 x10^3/uL (0.0-0.2) 0.0 x10^3/uL (0.0-0.2) Prothrombin Time 34.0 SEC (11.7-14.0) 34.3 SEC (11.7-14.0) Prothromb Time International Ratio 3.4 (0.8-1.1) 3.4 (0.8-1.1) D-Dimer (Yanelis) 0.70 ug/mlFEU (0.00-0.50) Sodium Level 142 mmol/L (136-145) 140 mmol/L (136-145) Potassium Level 4.7 mmol/L (3.5-5.1) 5.1 mmol/L (3.5-5.1) Chloride Level 107 mmol/L (98-107) 105 mmol/L (98-107) Carbon Dioxide Level 28 mmol/L (21-32) 26 mmol/L (21-32) Anion Gap 7 (6-14) 9 (6-14) Blood Urea Nitrogen 44 mg/dL (8-26) 47 mg/dL (8-26) Creatinine 1.6 mg/dL (0.7-1.3) 1.6 mg/dL (0.7-1.3) Estimated GFR (Cockcroft-Gault) 42.1 42.1 BUN/Creatinine Ratio 28 (6-20) Glucose Level 114 mg/dL (70-99) 150 mg/dL (70-99) Calcium Level 10.8 mg/dL (8.5-10.1) 10.6 mg/dL (8.5-10.1) Total Bilirubin 1.4 mg/dL (0.2-1.0) Aspartate Amino Transf (AST/SGOT) 25 U/L (15-37) Alanine Aminotransferase (ALT/SGPT) 36 U/L (16-63) Alkaline Phosphatase 78 U/L (46-116) Creatine Kinase 57 U/L (39-308) Creatine Kinase MB (Mass) 1.7 ng/mL (0.0-3.6) Creatine Kinase MB Relative Index % (0-4) Troponin I Quantitative 0.101 ng/mL (0.000-0.055) DJ-Cqj-W-Type Natriuretic Peptide 2122 pg/mL (0-449) Total Protein 6.7 g/dL (6.4-8.2) Albumin 3.0 g/dL (3.4-5.0) 2.8 g/dL (3.4-5.0) Albumin/Globulin Ratio 0.8 (1.0-1.7) Urine Color Yellow Urine Clarity Clear Urine pH 5.0 Urine Specific [place] 1.020 Urine Protein Negative mg/dL (NEG-TRACE) Urine Glucose (UA) Negative mg/dL (NEG) Urine Ketones (Stick) Negative mg/dL (NEG) Urine Blood Negative (NEG) Urine Nitrite Negative (NEG) Urine Bilirubin Negative (NEG) Urine Urobilinogen Dipstick 0.2 mg/dL (0.2 mg/dL) Urine Leukocyte Esterase Negative (NEG) Urine RBC 0 /HPF (0-2) Urine WBC 1-4 /HPF (0-4) Urine Squamous Epithelial Cells Occ /LPF Urine Bacteria 0 /HPF (0-FEW) Urine Mucus Mod /LPF Phosphorus Level 2.7 mg/dL (2.6-4.7) Laboratory Tests Test 09/08/18 15:15 09/08/18 17:57 09/09/18 03:20 09/09/18 03:25 White Blood Count 11.1 x10^3/uL (4.0-11.0) 6.7 x10^3/uL (4.0-11.0) Red Blood Count 3.45 x10^6/uL (4.30-5.70) 3.30 x10^6/uL (4.30-5.70) Hemoglobin 10.9 g/dL (13.0-17.5) 10.5 g/dL (13.0-17.5) Hematocrit 33.3 % (39.0-53.0) 31.7 % (39.0-53.0) Mean Corpuscular Volume 96 fL (79-100) 96 fL (79-100) Mean Corpuscular Hemoglobin 32 pg (25-35) 32 pg (25-35) Mean Corpuscular Hemoglobin Concent 33 g/dL (31-37) 33 g/dL (31-37) Red Cell Distribution Width 14.9 % (11.5-14.5) 14.7 % (11.5-14.5) Platelet Count 114 x10^3/uL (140-400) 107 x10^3/uL (140-400) Neutrophils (%) (Auto) 80 % (31-73) 92 % (31-73) Lymphocytes (%) (Auto) 9 % (24-48) 6 % (24-48) Monocytes (%) (Auto) 9 % (0-9) 3 % (0-9) Eosinophils (%) (Auto) 1 % (0-3) 0 % (0-3) Basophils (%) (Auto) 1 % (0-3) 0 % (0-3) Neutrophils # (Auto) 8.9 x10^3uL (1.8-7.7) 6.1 x10^3uL (1.8-7.7) Lymphocytes # (Auto) 1.0 x10^3/uL (1.0-4.8) 0.4 x10^3/uL (1.0-4.8) Monocytes # (Auto) 1.0 x10^3/uL (0.0-1.1) 0.2 x10^3/uL (0.0-1.1) Eosinophils # (Auto) 0.1 x10^3/uL (0.0-0.7) 0.0 x10^3/uL (0.0-0.7) Basophils # (Auto) 0.1 x10^3/uL (0.0-0.2) 0.0 x10^3/uL (0.0-0.2) Prothrombin Time 34.0 SEC (11.7-14.0) 34.3 SEC (11.7-14.0) Prothromb Time International Ratio 3.4 (0.8-1.1) 3.4 (0.8-1.1) D-Dimer (Yanelis) 0.70 ug/mlFEU (0.00-0.50) Sodium Level 142 mmol/L (136-145) 140 mmol/L (136-145) Potassium Level 4.7 mmol/L (3.5-5.1) 5.1 mmol/L (3.5-5.1) Chloride Level 107 mmol/L (98-107) 105 mmol/L (98-107) Carbon Dioxide Level 28 mmol/L (21-32) 26 mmol/L (21-32) Anion Gap 7 (6-14) 9 (6-14) Blood Urea Nitrogen 44 mg/dL (8-26) 47 mg/dL (8-26) Creatinine 1.6 mg/dL (0.7-1.3) 1.6 mg/dL (0.7-1.3) Estimated GFR (Cockcroft-Gault) 42.1 42.1 BUN/Creatinine Ratio 28 (6-20) Glucose Level 114 mg/dL (70-99) 150 mg/dL (70-99) Calcium Level 10.8 mg/dL (8.5-10.1) 10.6 mg/dL (8.5-10.1) Total Bilirubin 1.4 mg/dL (0.2-1.0) Aspartate Amino Transf (AST/SGOT) 25 U/L (15-37) Alanine Aminotransferase (ALT/SGPT) 36 U/L (16-63) Alkaline Phosphatase 78 U/L (46-116) Creatine Kinase 57 U/L (39-308) Creatine Kinase MB (Mass) 1.7 ng/mL (0.0-3.6) Creatine Kinase MB Relative Index % (0-4) Troponin I Quantitative 0.101 ng/mL (0.000-0.055) QZ-Xmi-P-Type Natriuretic Peptide 2122 pg/mL (0-449) Total Protein 6.7 g/dL (6.4-8.2) Albumin 3.0 g/dL (3.4-5.0) 2.8 g/dL (3.4-5.0) Albumin/Globulin Ratio 0.8 (1.0-1.7) Urine Color Yellow Urine Clarity Clear Urine pH 5.0 Urine Specific [place] 1.020 Urine Protein Negative mg/dL (NEG-TRACE) Urine Glucose (UA) Negative mg/dL (NEG) Urine Ketones (Stick) Negative mg/dL (NEG) Urine Blood Negative (NEG) Urine Nitrite Negative (NEG) Urine Bilirubin Negative (NEG) Urine Urobilinogen Dipstick 0.2 mg/dL (0.2 mg/dL) Urine Leukocyte Esterase Negative (NEG) Urine RBC 0 /HPF (0-2) Urine WBC 1-4 /HPF (0-4) Urine Squamous Epithelial Cells Occ /LPF Urine Bacteria 0 /HPF (0-FEW) Urine Mucus Mod /LPF Phosphorus Level 2.7 mg/dL (2.6-4.7) Medications Current Medications Albuterol/ Ipratropium (Duoneb) 3 ml 1X ONCE NEB ; Start 09/08/18 at 14:30; Stop 09/08/18 at 14:31; Status DC Methylprednisolone Sodium Succinate (SOLU-Medrol 125MG VIAL) 125 mg 1X ONCE IV Last administered on 09/08/18at 15:27; Start 09/08/18 at 14:30; Stop 09/08/18 at 14:31; Status DC Ondansetron HCl (Zofran) 4 mg PRN Q8HRS PRN IV NAUSEA/VOMITING; Start 09/08/18 at 17:30; Stop 09/09/18 at 17:29 Albuterol/ Ipratropium (Duoneb) 3 ml RTQID NEB ; Start 09/08/18 at 20:00; Stop at 20:00; Status DC Ondansetron HCl (Zofran) 4 mg PRN Q6HRS PRN IV NAUSEA/VOMITING; Start 09/08/18 at 17:45 Acetaminophen (Tylenol) 650 mg PRN Q6HRS PRN PO Headaches, Temp > 101.5F; Start 09/08/18 at 17:45 Senna/Docusate Sodium (Senna Plus) 1 tab BID PO Last administered on 09/08/18at 21:36; Start 09/08/18 at 21:00 Lactulose (Lactulose) 20 gm PRN Q12HR PRN PO CONSTIPATION; Start 09/08/18 at 17: 45 Heparin Sodium (Porcine) (Heparin Sodium) 5,000 unit Q8HRS SQ ; Start 09/08/18 at 18:00; Stop 09/08/18 at 22:17; Status DC Furosemide (Lasix) 20 mg 1X ONCE IVP Last administered on 09/08/18at 19:40; Start 09/08/18 at 17:45; Stop 09/08/18 at 18:17; Status DC Amiodarone HCl (Cordarone) 100 mg DAILY PO ; Start 09/09/18 at 09:00 Ascorbic Acid (Vitamin C) 500 mg BID PO Last administered on 09/08/18at 21:35; Start 09/08/18 at 21:00 Atorvastatin Calcium (Lipitor) 10 mg HS PO Last administered on 09/08/18at 21:00 ; Start 09/08/18 at 21:00 Ferrous Sulfate (Feosol) 325 mg BIDWMEALS PO ; Start 09/08/18 at 18:15 Fluticasone Propionate (Flonase) 1 spray BID NS Last administered on 09/08/18 21:37; Start 09/08/18 at 21:00 Albuterol/ Ipratropium (Duoneb) 3 ml QID NEB Last administered on 09/08/18 19: 30; Start 09/08/18 at 21:00 Metoprolol Succinate (Toprol Xl) 25 mg QPM PO Last administered on 09/08/18 19: 43; Start 09/08/18 at 18:00 Tamsulosin HCl (Flomax) 0.4 mg QHS PO Last administered on 09/08/18 21:35; Start 09/08/18 at 21:00 Calcitriol (Rocaltrol) 0.25 mcg MoWeFr PO ; Start 09/10/18 at 09:00 Cetirizine HCl (ZyrTEC) 10 mg QHS PO Last administered on 09/08/18 21:36; Start 09/08/18 at 21:00 Polyethylene Glycol (miraLAX PACKET) 17 gm BID PO Last administered on 21:37; Start 09/08/18 at 21:00 Warfarin Sodium (Coumadin) 5 mg MoWeFr PO ; Start 09/10/18 at 16:00 Warfarin Sodium (Coumadin) 7.5 mg TuThSa PO ; Start 09/09/18 at 16:00 Warfarin Sodium (Coumadin Per Physician) 1 each PRN DAILY PRN MC SEE COMMENTS; Start 09/08/18 at 18:30 Lorazepam (Ativan) 0.25 mg PRN BID PRN PO ANXIETY / AGITATION Last administered on 09/08/18 21:35; Start 09/08/18 at 20:30 Active Scripts Active Reported Potassium Chloride 20 Meq Tablet.er 20 Meq PO DAILY Lasix (Furosemide) 40 Mg Tablet 40 Mg PO DAILY Duoneb 0.5-3(2.5) Mg/3 Ml (Albuterol/Ipratropium) 3 Ml Ampul.neb 3 Ml NEB QID Miralax (Polyethylene Glycol 3350) 17 Gm Powd.pack 1 Packet PO BID Ferrous Sulfate 325 Mg Tablet 1 Tab PO BID Ascorbic Acid 500 Mg Tablet 500 Mg PO BID Super B Complex-Vitamin C (B Complex With Vitamin C) 1 Each Tablet 1 Each PO Warfarin Sodium 5 Mg Tablet 7.5 Mg PO QTUTHSA Amiodarone Hcl 200 Mg Tablet 100 Mg PO DAILY Metoprolol Succinate ( Xl ) (Metoprolol Succinate) 25 Mg Tab.er.24h 1 Tab PO QPM Calcitriol 0.25 Mcg Capsule 0.25 Mcg PO QM-W-F Warfarin Sodium 5 Mg Tablet 5 Mg PO QMWF Loratadine 10 Mg Tablet 10 Mg PO QHS Tamsulosin Hcl 0.4 Mg Cap.er.24h 0.4 Mg PO QHS Atorvastatin Calcium 10 Mg Tablet 10 Mg PO HS Flonase (Fluticasone Propionate) 16 Gm [place].susp 2 [place] NS BID Vitals/I & O Vital Sign - Last 24 Hours 09/08/18 09/08/18 09/08/18 09/08/18 14:00 15:00 16:00 17:00 Temp 98.3 98.3 Pulse 80 70 68 68 Resp 22 B/P (MAP) 111/66 (81) 117/72 (87) 147/65 (92) 161/77 (105) Pulse Ox 97 98 97 99 O2 Delivery Nasal Cannula Nasal Cannula Nasal Cannula Nasal Cannula O2 Flow Rate 2.0 3.0 3.0 3.0 09/08/18 09/08/18 09/08/18 09/08/18 17:30 18:00 18:05 18:15 Temp 98.0 98.0 Pulse 80 68 B/P (MAP) 161/77 (105) 138/74 (95) 131/72 (91) 111/58 (75) Pulse Ox 99 94 O2 Delivery Nasal Cannula O2 Flow Rate 3.0 09/08/18 09/08/18 09/08/18 09/08/18 19:30 19:43 20:00 22:24 Temp 98.1 98.1 Pulse 69 70 Resp 18 B/P (MAP) 111/58 125/81 (96) Pulse Ox 98 95 O2 Delivery Nasal Cannula Nasal Cannula Nasal Cannula O2 Flow Rate 3.0 3.0 2.0 09/09/18 03:40 Temp 98.0 98.0 Pulse 74 Resp 16 B/P (MAP) 128/66 (86) Pulse Ox 97 O2 Delivery Nasal Cannula O2 Flow Rate 2.0 Intake and Output 09/08/18 09/08/18 09/09/18 14:59 22:59 06:59 Intake Total 660 ml Output Total 600 ml 425 ml Balance -600 ml 235 ml KAREEM HARRIS MD Sep 09, 2018 07:34
[2018-09-09] MEDS: IPRATRPIUM/ALBUTEROL 0.5/2.5MG 3 ML NEBU. NEB SCH ×4 (07:50→19:41)
[2018-09-09] MEDS: FERROUS SULFATE 325 MG TABLET. PO SCH ×2 (08:00→17:47)
[2018-09-09] MEDS: ASCORBIC ACID 500 MG TABLET PO SCH ×2 (08:34→22:09)
[2018-09-09] MEDS: SENNOSIDES/DOCUSATE 8.6/50MG TABLET. PO SCH ×2 (08:34→22:09)
[2018-09-09] MEDS: AMIODARONE HCL 200 MG TABLET. PO SCH (08:36)
[2018-09-09] MEDS: POLYETHYLENE GLYCOL 3350 17 GM PACKET. PO SCH ×2 (08:37→22:08)
[2018-09-09] MEDS: FLUTICASONE 50MCG/NASAL SPRAY 16GM BOTTLE. NS SCH ×2 (08:37→22:10)
[2018-09-09 09:19] LABS: % LYMPHS 5 % (24-48); % MONOS 1 % (0-10); % SEGS 94 % (35-66); PLT ESTIMATE ADEQUATE (ADEQUATE)
[2018-09-09] MEDS ORDERED: ALPR0.5T6 PO (09:49)
[2018-09-09] MEDS ORDERED: SERT25TA PO (09:49)
[2018-09-09] MEDS ORDERED: RANI-348 PO (09:49)
--- NOTE | 2018-09-09 12:13 | PDOC2 ---
CONSULT Date of Consult Date of Consult DATE: 09/09/18 TIME: 12:05 Reason for Consult Reason for Consult: CKD Identification/Chief Complaint Chief Complaint SHORTNESS OF BREATH Source Source: Chart review, Patient History of Present Illness Reason for Visit: Mr Quintero is a 78yo Cm w/ PMHx CHF, afib, PPM, CAD, HTN, COPD who presents with shortness of breath at home for the past 3-5 days and decrease in O2 sats with activity into the 80s and upper 70s on his home pulse oximetry, was also hypoxic 84-88% in the ED, placed on O2. Unclear if weight gain, he states he thinks he actually lost a pound in the past week; feet/legs not much more edematous recently. He has Dx of CKD with intermittent JAYODN. Past Medical History Cardiovascular: AFIB, CAD, CHF, HTN, Hyperlipidemia, Other Pulmonary: COPD, Pneumonia CENTRAL NERVOUS SYSTEM: Other GI: Constipation, Hemorrhoids Heme/Onc: Anemia NOS Hepatobiliary: No pertinent hx Psych: Anxiety, Depression Musculoskeletal: Osteoarthritis Rheumatologic: No pertinent hx Infectious disease: No pertinent hx Renal/: Chronic renal insuff, Benign prostatic enlarg. Endocrine: No pertinent hx Past Surgical History Past Surgical History: Pacemaker, Cholecystectomy, Cataract Removal, Hernia Repair Family History Family History: Heart Disease Social History No ALCOHOL: rare Drugs: None Lives: with Family Domestic Violence: Neg Current Problem List Problem List Problems Medical Problems: (1) CHF exacerbation Status: Acute (2) COPD with exacerbation Status: Acute Current Medications Current Medications Current Medications Albuterol/ Ipratropium (Duoneb) 3 ml 1X ONCE NEB ; Start 09/08/18 at 14:30; Stop 09/08/18 at 14:31; Status DC Methylprednisolone Sodium Succinate (SOLU-Medrol 125MG VIAL) 125 mg 1X ONCE IV Last administered on 09/08/18at 15:27; Start 09/08/18 at 14:30; Stop 09/08/18 at 14:31; Status DC Ondansetron HCl (Zofran) 4 mg PRN Q8HRS PRN IV NAUSEA/VOMITING; Start 09/08/18 at 17:30; Stop 09/09/18 at 17:29 Albuterol/ Ipratropium (Duoneb) 3 ml RTQID NEB ; Start 09/08/18 at 20:00; Stop at 20:00; Status DC Ondansetron HCl (Zofran) 4 mg PRN Q6HRS PRN IV NAUSEA/VOMITING; Start 09/08/18 at 17:45 Acetaminophen (Tylenol) 650 mg PRN Q6HRS PRN PO Headaches, Temp > 101.5F; Start 09/08/18 at 17:45 Senna/Docusate Sodium (Senna Plus) 1 tab BID PO Last administered on 09/09/18 08:34; Start 09/08/18 at 21:00 Lactulose (Lactulose) 20 gm PRN Q12HR PRN PO CONSTIPATION; Start 09/08/18 at 17: 45 Heparin Sodium (Porcine) (Heparin Sodium) 5,000 unit Q8HRS SQ ; Start 09/08/18 at 18:00; Stop 09/08/18 at 22:17; Status DC Furosemide (Lasix) 20 mg 1X ONCE IVP Last administered on 09/08/18 19:40; Start 09/08/18 at 17:45; Stop 09/08/18 at 18:17; Status DC Amiodarone HCl (Cordarone) 100 mg DAILY PO Last administered on 09/09/18 08:36 ; Start 09/09/18 at 09:00 Ascorbic Acid (Vitamin C) 500 mg BID PO Last administered on 09/09/18 08:34; Start 09/08/18 at 21:00 Atorvastatin Calcium (Lipitor) 10 mg HS PO Last administered on 09/08/18 21:00 ; Start 09/08/18 at 21:00 Ferrous Sulfate (Feosol) 325 mg BIDWMEALS PO ; Start 09/08/18 at 18:15 Fluticasone Propionate (Flonase) 1 spray BID NS Last administered on 09/09/18 08:37; Start 09/08/18 at 21:00 Albuterol/ Ipratropium (Duoneb) 3 ml QID NEB Last administered on 09/09/18 11: 34; Start 09/08/18 at 21:00 Metoprolol Succinate (Toprol Xl) 25 mg QPM PO Last administered on 09/08/18 19: 43; Start 09/08/18 at 18:00 Tamsulosin HCl (Flomax) 0.4 mg QHS PO Last administered on 3/6/19at 21:35; Start 09/08/18 at 21:00 Calcitriol (Rocaltrol) 0.25 mcg MoWeFr PO ; Start 09/10/18 at 09:00 Cetirizine HCl (ZyrTEC) 10 mg QHS PO Last administered on 09/08/18at 21:36; Start 09/08/18 at 21:00 Polyethylene Glycol (miraLAX PACKET) 17 gm BID PO Last administered on at 08:37; Start 09/08/18 at 21:00 Warfarin Sodium (Coumadin) 5 mg MoWeFr@1600 PO ; Start 09/10/18 at 16:00 Warfarin Sodium (Coumadin) 7.5 mg TuThSa PO ; Start 09/09/18 at 16:00; Stop at 16:00; Status DC Warfarin Sodium (Coumadin Per Physician) 1 each PRN DAILY PRN MC SEE COMMENTS Last administered on 09/09/18at 09:04; Start 09/08/18 at 18:30 Lorazepam (Ativan) 0.25 mg PRN BID PRN PO ANXIETY / AGITATION Last administered on 09/08/18at 21:35; Start 09/08/18 at 20:30 Warfarin Sodium (Coumadin) 7.5 mg SuTuThSa@1600 PO ; Start 09/11/18 at 16:00 Active Scripts Active Reported Alprazolam 0.5 Mg Tablet 0.5 Mg PO PRN Q8HRS PRN Ranitidine Hcl 75 Mg Tablet 75 Mg PO PRN DAILY PRN Zoloft (Sertraline Hcl) 25 Mg Tablet 1 Tab PO DAILY Duoneb 0.5-3(2.5) Mg/3 Ml (Albuterol/Ipratropium) 3 Ml Ampul.neb 3 Ml NEB PRN Q4HRS PRN Miralax (Polyethylene Glycol 3350) 17 Gm Powd.pack 1 Packet PO BID Ascorbic Acid 500 Mg Tablet 500 Mg PO BID Super B Complex-Vitamin C (B Complex With Vitamin C) 1 Each Tablet 1 Each PO Amiodarone Hcl 200 Mg Tablet 100 Mg PO DAILY Metoprolol Succinate ( Xl ) (Metoprolol Succinate) 25 Mg Tab.er.24h 1 Tab PO QPM Calcitriol 0.25 Mcg Capsule 0.25 Mcg PO QMTUWTH Warfarin Sodium 5 Mg Tablet 7.5 Mg PO DAILY Loratadine 10 Mg Tablet 10 Mg PO QHS Tamsulosin Hcl 0.4 Mg Cap.er.24h 0.4 Mg PO QHS Atorvastatin Calcium 10 Mg Tablet 10 Mg PO HS Flonase (Fluticasone Propionate) 16 Gm [place].susp 2 [place] NS BID Allergies Allergies: Coded Allergies: No Known Drug Allergies (Unverified , 02/05/18) ROS Review of System As per HPI Physical Exam Physical Exam General: Alert, Oriented X3, Cooperative, No acute distress HEENT: Atraumatic, PERRLA, EOMI, Mucous membr. moist/pink Lungs: Other (Bibasilar crackles, scattered wheezes) Abdomen: Normal bowel sounds, Soft, No tenderness, No hepatosplenomegaly, No masses Extremities: No clubbing, No cyanosis, Normal pulses, No tenderness/swelling, Other (Scant edema) Skin: No rashes, No breakdown, No significant lesion Neuro: Normal gait, Normal speech, Strength at 5/5 X4 ext, Normal tone, Sensation intact, Cranial nerves 3-12 NL, Reflexes 2+ Vital Signs Vital Signs Date Time Temp Pulse Resp B/P (MAP) Pulse Ox O2 Delivery O2 Flow Rate FiO2 09/09/18 11:35 93 Room Air 09/09/18 11:00 98.1 67 18 119/57 (77) 98.1 09/09/18 08:00 2.0 Assessment & Plan CKD STAGE 3 - Stable renal function E-Lytes stable , UA unremarkable Acute Hypoxia - with significant desaturations 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 Ejection fraction of 50-55% on most recent echocardiogram CxR No Pulm edema Paroxysmal atrial fibrillation - currently irregular on monitor. Treated with amiodarone and anticoagulation. Sick sinus syndrome and permanent pacemaker - appears to be capturing on monitor. Will monitor Hypercalcemia - Mild,has sec Hyperparathyroidism Is on cinacalcet Labs Labs Laboratory Tests Test 09/08/18 15:15 09/08/18 17:57 09/09/18 03:20 09/09/18 03:25 White Blood Count 11.1 x10^3/uL (4.0-11.0) 6.7 x10^3/uL (4.0-11.0) Red Blood Count 3.45 x10^6/uL (4.30-5.70) 3.30 x10^6/uL (4.30-5.70) Hemoglobin 10.9 g/dL (13.0-17.5) 10.5 g/dL (13.0-17.5) Hematocrit 33.3 % (39.0-53.0) 31.7 % (39.0-53.0) Mean Corpuscular Volume 96 fL (79-100) 96 fL (79-100) Mean Corpuscular Hemoglobin 32 pg (25-35) 32 pg (25-35) Mean Corpuscular Hemoglobin Concent 33 g/dL (31-37) 33 g/dL (31-37) Red Cell Distribution Width 14.9 % (11.5-14.5) 14.7 % (11.5-14.5) Platelet Count 114 x10^3/uL (140-400) 107 x10^3/uL (140-400) Neutrophils (%) (Auto) 80 % (31-73) 92 % (31-73) Lymphocytes (%) (Auto) 9 % (24-48) 6 % (24-48) Monocytes (%) (Auto) 9 % (0-9) 3 % (0-9) Eosinophils (%) (Auto) 1 % (0-3) 0 % (0-3) Basophils (%) (Auto) 1 % (0-3) 0 % (0-3) Neutrophils # (Auto) 8.9 x10^3uL (1.8-7.7) 6.1 x10^3uL (1.8-7.7) Lymphocytes # (Auto) 1.0 x10^3/uL (1.0-4.8) 0.4 x10^3/uL (1.0-4.8) Monocytes # (Auto) 1.0 x10^3/uL (0.0-1.1) 0.2 x10^3/uL (0.0-1.1) Eosinophils # (Auto) 0.1 x10^3/uL (0.0-0.7) 0.0 x10^3/uL (0.0-0.7) Basophils # (Auto) 0.1 x10^3/uL (0.0-0.2) 0.0 x10^3/uL (0.0-0.2) Prothrombin Time 34.0 SEC (11.7-14.0) 34.3 SEC (11.7-14.0) Prothromb Time International Ratio 3.4 (0.8-1.1) 3.4 (0.8-1.1) D-Dimer (Yanelis) 0.70 ug/mlFEU (0.00-0.50) Sodium Level 142 mmol/L (136-145) 140 mmol/L (136-145) Potassium Level 4.7 mmol/L (3.5-5.1) 5.1 mmol/L (3.5-5.1) Chloride Level 107 mmol/L (98-107) 105 mmol/L (98-107) Carbon Dioxide Level 28 mmol/L (21-32) 26 mmol/L (21-32) Anion Gap 7 (6-14) 9 (6-14) Blood Urea Nitrogen 44 mg/dL (8-26) 47 mg/dL (8-26) Creatinine 1.6 mg/dL (0.7-1.3) 1.6 mg/dL (0.7-1.3) Estimated GFR (Cockcroft-Gault) 42.1 42.1 BUN/Creatinine Ratio 28 (6-20) Glucose Level 114 mg/dL (70-99) 150 mg/dL (70-99) Calcium Level 10.8 mg/dL (8.5-10.1) 10.6 mg/dL (8.5-10.1) Total Bilirubin 1.4 mg/dL (0.2-1.0) Aspartate Amino Transf (AST/SGOT) 25 U/L (15-37) Alanine Aminotransferase (ALT/SGPT) 36 U/L (16-63) Alkaline Phosphatase 78 U/L (46-116) Creatine Kinase 57 U/L (39-308) Creatine Kinase MB (Mass) 1.7 ng/mL (0.0-3.6) Creatine Kinase MB Relative Index % (0-4) Troponin I Quantitative 0.101 ng/mL (0.000-0.055) RD-Ogz-Z-Type Natriuretic Peptide 2122 pg/mL (0-449) Total Protein 6.7 g/dL (6.4-8.2) Albumin 3.0 g/dL (3.4-5.0) 2.8 g/dL (3.4-5.0) Albumin/Globulin Ratio 0.8 (1.0-1.7) Urine Color Yellow Urine Clarity Clear Urine pH 5.[address] 1.020 Urine Protein Negative mg/dL (NEG-TRACE) Urine Glucose (UA) Negative mg/dL (NEG) Urine Ketones (Stick) Negative mg/dL (NEG) Urine Blood Negative (NEG) Urine Nitrite Negative (NEG) Urine Bilirubin Negative (NEG) Urine Urobilinogen Dipstick 0.2 mg/dL (0.2 mg/dL) Urine Leukocyte Esterase Negative (NEG) Urine RBC 0 /HPF (0-2) Urine WBC 1-4 /HPF (0-4) Urine Squamous Epithelial Cells Occ /LPF Urine Bacteria 0 /HPF (0-FEW) Urine Mucus Mod /LPF Segmented Neutrophils % 94 % (35-66) Lymphocytes % 5 % (24-48) Monocytes % 1 % (0-10) Platelet Estimate Adequate (ADEQUATE) Large Platelets Occ Phosphorus Level 2.7 mg/dL (2.6-4.7) Procalcitonin < 0.10 ng/mL (0.00-0.10) Laboratory Tests Test 09/08/18 15:15 09/08/18 17:57 09/09/18 03:20 09/09/18 03:25 White Blood Count 11.1 x10^3/uL (4.0-11.0) 6.7 x10^3/uL (4.0-11.0) Red Blood Count 3.45 x10^6/uL (4.30-5.70) 3.30 x10^6/uL (4.30-5.70) Hemoglobin 10.9 g/dL (13.0-17.5) 10.5 g/dL (13.0-17.5) Hematocrit 33.3 % (39.0-53.0) 31.7 % (39.0-53.0) Mean Corpuscular Volume 96 fL (79-100) 96 fL (79-100) Mean Corpuscular Hemoglobin 32 pg (25-35) 32 pg (25-35) Mean Corpuscular Hemoglobin Concent 33 g/dL (31-37) 33 g/dL (31-37) Red Cell Distribution Width 14.9 % (11.5-14.5) 14.7 % (11.5-14.5) Platelet Count 114 x10^3/uL (140-400) 107 x10^3/uL (140-400) Neutrophils (%) (Auto) 80 % (31-73) 92 % (31-73) Lymphocytes (%) (Auto) 9 % (24-48) 6 % (24-48) Monocytes (%) (Auto) 9 % (0-9) 3 % (0-9) Eosinophils (%) (Auto) 1 % (0-3) 0 % (0-3) Basophils (%) (Auto) 1 % (0-3) 0 % (0-3) Neutrophils # (Auto) 8.9 x10^3uL (1.8-7.7) 6.1 x10^3uL (1.8-7.7) Lymphocytes # (Auto) 1.0 x10^3/uL (1.0-4.8) 0.4 x10^3/uL (1.0-4.8) Monocytes # (Auto) 1.0 x10^3/uL (0.0-1.1) 0.2 x10^3/uL (0.0-1.1) Eosinophils # (Auto) 0.1 x10^3/uL (0.0-0.7) 0.0 x10^3/uL (0.0-0.7) Basophils # (Auto) 0.1 x10^3/uL (0.0-0.2) 0.0 x10^3/uL (0.0-0.2) Prothrombin Time 34.0 SEC (11.7-14.0) 34.3 SEC (11.7-14.0) Prothromb Time International Ratio 3.4 (0.8-1.1) 3.4 (0.8-1.1) D-Dimer (Yanelis) 0.70 ug/mlFEU (0.00-0.50) Sodium Level 142 mmol/L (136-145) 140 mmol/L (136-145) Potassium Level 4.7 mmol/L (3.5-5.1) 5.1 mmol/L (3.5-5.1) Chloride Level 107 mmol/L (98-107) 105 mmol/L (98-107) Carbon Dioxide Level 28 mmol/L (21-32) 26 mmol/L (21-32) Anion Gap 7 (6-14) 9 (6-14) Blood Urea Nitrogen 44 mg/dL (8-26) 47 mg/dL (8-26) Creatinine 1.6 mg/dL (0.7-1.3) 1.6 mg/dL (0.7-1.3) Estimated GFR (Cockcroft-Gault) 42.1 42.1 BUN/Creatinine Ratio 28 (6-20) Glucose Level 114 mg/dL (70-99) 150 mg/dL (70-99) Calcium Level 10.8 mg/dL (8.5-10.1) 10.6 mg/dL (8.5-10.1) Total Bilirubin 1.4 mg/dL (0.2-1.0) Aspartate Amino Transf (AST/SGOT) 25 U/L (15-37) Alanine Aminotransferase (ALT/SGPT) 36 U/L (16-63) Alkaline Phosphatase 78 U/L (46-116) Creatine Kinase 57 U/L (39-308) Creatine Kinase MB (Mass) 1.7 ng/mL (0.0-3.6) Creatine Kinase MB Relative Index % (0-4) Troponin I Quantitative 0.101 ng/mL (0.000-0.055) GP-Jem-P-Type Natriuretic Peptide 2122 pg/mL (0-449) Total Protein 6.7 g/dL (6.4-8.2) Albumin 3.0 g/dL (3.4-5.0) 2.8 g/dL (3.4-5.0) Albumin/Globulin Ratio 0.8 (1.0-1.7) Urine Color Yellow Urine Clarity Clear Urine pH 5.[address] 1.020 Urine Protein Negative mg/dL (NEG-TRACE) Urine Glucose (UA) Negative mg/dL (NEG) Urine Ketones (Stick) Negative mg/dL (NEG) Urine Blood Negative (NEG) Urine Nitrite Negative (NEG) Urine Bilirubin Negative (NEG) Urine Urobilinogen Dipstick 0.2 mg/dL (0.2 mg/dL) Urine Leukocyte Esterase Negative (NEG) Urine RBC 0 /HPF (0-2) Urine WBC 1-4 /HPF (0-4) Urine Squamous Epithelial Cells Occ /LPF Urine Bacteria 0 /HPF (0-FEW) Urine Mucus Mod /LPF Segmented Neutrophils % 94 % (35-66) Lymphocytes % 5 % (24-48) Monocytes % 1 % (0-10) Platelet Estimate Adequate (ADEQUATE) Large Platelets Occ Phosphorus Level 2.7 mg/dL (2.6-4.7) Procalcitonin < 0.10 ng/mL (0.00-0.10) Review All relevant outside records, renal labs, imaging studies, telemetry/EKG's were reviewed. KIERSTEN BRODERICK MD Sep 09, 2018 12:13
--- NOTE | 2018-09-09 12:57 | PDOC2 ---
CARDIAC CONSULT DATE OF CONSULT Date of Consult DATE: 09/09/18 TIME: 12:46 REASON FOR CONSULT Reason for Consult: CHF, AFIB REFERRING PHYSICIAN Referring Physician: [place] SOURCE Source: Chart review, Patient HISTORY OF PRESENT ILLNESS HISTORY OF PRESENT ILLNESS This is a pleasant 78 yo male admitted for complains of lightheadedness and SOA. Reports that he just got done being treated with steroids due to recent bronchitis. Pt reports that the other he flet lightheaded bu no palpitations and no falls. Also noted some SOA particularly with exertion and noted with O2 sat in the 80s but better with supplementation which he does not wear all the time. Denies any chest pain. He has been taking his medications regularly. He did howevere started coughing more the other day but mainly nonproductive. PAST MEDICAL HISTORY Past Medical History Cardiovascular: AFIB, CAD (mild non-obstructive on cath - 2013), CHF, HTN, Hyperlipidemia, Other (non-ischemic cardiomyopathy; PPP) Pulmonary: COPD, Pneumonia CENTRAL NERVOUS SYSTEM: Other (none) GI: Constipation, Hemorrhoids Heme/Onc: Anemia NOS Hepatobiliary: No pertinent hx Psych: Anxiety, Depression Musculoskeletal: Osteoarthritis Rheumatologic: No pertinent hx Infectious disease: No pertinent hx ENT: No pertinent hx Renal/: Chronic renal insuff, Benign prostatic enlarg. Endocrine: No pertinent hx Dermatology: No pertinent hx PAST SURGICAL HISTORY Past Surgical History Pacemaker, Cholecystectomy, Cataract Removal, Hernia Repair FAMILY HISTORY Family History: Heart Disease SOCIAL HISTORY Smoke: No ALCOHOL: none Drugs: None Lives: with Family CURRENT MEDICATIONS CURRENT MEDICATIONS Current Medications Medications (Trade) Dose Ordered Sig/Patricia Route PRN Reason Start Time Stop Time Status Last Admin Dose Admin Methylprednisolone Sodium Succinate (SOLU-Medrol 125MG VIAL) 125 mg 1X ONCE IV 09/08/18 14:30 09/08/18 14:31 DC 09/08/18 15:27 Senna/Docusate Sodium (Senna Plus) 1 tab BID PO 09/08/18 21:00 09/09/18 08:34 Furosemide (Lasix) 20 mg 1X ONCE IVP 09/08/18 17:45 09/08/18 18:17 DC 09/08/18 19:40 Amiodarone HCl (Cordarone) 100 mg DAILY PO 09/09/18 09:00 09/09/18 08:36 Ascorbic Acid (Vitamin C) 500 mg BID PO 09/08/18 21:00 09/09/18 08:34 Atorvastatin Calcium (Lipitor) 10 mg HS PO 09/08/18 21:00 09/08/18 21:00 Fluticasone Propionate (Flonase) 1 spray BID NS 09/08/18 21:00 09/09/18 08:37 Albuterol/ Ipratropium (Duoneb) 3 ml QID NEB 09/08/18 21:00 09/09/18 11:34 Metoprolol Succinate (Toprol Xl) 25 mg QPM PO 09/08/18 18:00 09/08/18 19:43 Tamsulosin HCl (Flomax) 0.4 mg QHS PO 09/08/18 21:00 09/08/18 21:35 Cetirizine HCl (ZyrTEC) 10 mg QHS PO 09/08/18 21:00 09/08/18 21:36 Polyethylene Glycol (miraLAX PACKET) 17 gm BID PO 09/08/18 21:00 09/09/18 08:37 Warfarin Sodium (Coumadin Per Physician) 1 each PRN DAILY PRN MC SEE COMMENTS 09/08/18 18:30 09/09/18 09:04 Lorazepam (Ativan) 0.25 mg PRN BID PRN PO ANXIETY / AGITATION 09/08/18 20:30 09/08/18 21:35 ALLERGIES ALLERGIES: Coded Allergies: No Known Drug Allergies (Unverified , 02/05/18) ROS Review of System 14 point ROS evaluated with pertinent positives noted per HPI PHYSICAL EXAM General: Alert, Oriented X3, Cooperative, No acute distress HEENT: Atraumatic, Mucous membr. moist/pink Lungs: Clear to auscultation, Normal air movement Heart: Regular rate, Normal S1, Normal S2 VITALS VITALS Vital Signs Date Time Temp Pulse Resp B/P (MAP) Pulse Ox O2 Delivery O2 Flow Rate FiO2 09/09/18 11:35 93 Room Air 09/09/18 11:00 98.1 67 18 119/57 (77) 98.1 09/09/18 08:00 2.0 LABS Lab: Laboratory Tests Test 09/08/18 15:15 09/08/18 17:57 09/09/18 03:20 09/09/18 03:25 White Blood Count 11.1 x10^3/uL (4.0-11.0) 6.7 x10^3/uL (4.0-11.0) Red Blood Count 3.45 x10^6/uL (4.30-5.70) 3.30 x10^6/uL (4.30-5.70) Hemoglobin 10.9 g/dL (13.0-17.5) 10.5 g/dL (13.0-17.5) Hematocrit 33.3 % (39.0-53.0) 31.7 % (39.0-53.0) Mean Corpuscular Volume 96 fL (79-100) 96 fL (79-100) Mean Corpuscular Hemoglobin 32 pg (25-35) 32 pg (25-35) Mean Corpuscular Hemoglobin Concent 33 g/dL (31-37) 33 g/dL (31-37) Red Cell Distribution Width 14.9 % (11.5-14.5) 14.7 % (11.5-14.5) Platelet Count 114 x10^3/uL (140-400) 107 x10^3/uL (140-400) Neutrophils (%) (Auto) 80 % (31-73) 92 % (31-73) Lymphocytes (%) (Auto) 9 % (24-48) 6 % (24-48) Monocytes (%) (Auto) 9 % (0-9) 3 % (0-9) Eosinophils (%) (Auto) 1 % (0-3) 0 % (0-3) Basophils (%) (Auto) 1 % (0-3) 0 % (0-3) Neutrophils # (Auto) 8.9 x10^3uL (1.8-7.7) 6.1 x10^3uL (1.8-7.7) Lymphocytes # (Auto) 1.0 x10^3/uL (1.0-4.8) 0.4 x10^3/uL (1.0-4.8) Monocytes # (Auto) 1.0 x10^3/uL (0.0-1.1) 0.2 x10^3/uL (0.0-1.1) Eosinophils # (Auto) 0.1 x10^3/uL (0.0-0.7) 0.0 x10^3/uL (0.0-0.7) Basophils # (Auto) 0.1 x10^3/uL (0.0-0.2) 0.0 x10^3/uL (0.0-0.2) Prothrombin Time 34.0 SEC (11.7-14.0) 34.3 SEC (11.7-14.0) Prothromb Time International Ratio 3.4 (0.8-1.1) 3.4 (0.8-1.1) D-Dimer (Yanelis) 0.70 ug/mlFEU (0.00-0.50) Sodium Level 142 mmol/L (136-145) 140 mmol/L (136-145) Potassium Level 4.7 mmol/L (3.5-5.1) 5.1 mmol/L (3.5-5.1) Chloride Level 107 mmol/L (98-107) 105 mmol/L (98-107) Carbon Dioxide Level 28 mmol/L (21-32) 26 mmol/L (21-32) Anion Gap 7 (6-14) 9 (6-14) Blood Urea Nitrogen 44 mg/dL (8-26) 47 mg/dL (8-26) Creatinine 1.6 mg/dL (0.7-1.3) 1.6 mg/dL (0.7-1.3) Estimated GFR (Cockcroft-Gault) 42.1 42.1 BUN/Creatinine Ratio 28 (6-20) Glucose Level 114 mg/dL (70-99) 150 mg/dL (70-99) Calcium Level 10.8 mg/dL (8.5-10.1) 10.6 mg/dL (8.5-10.1) Total Bilirubin 1.4 mg/dL (0.2-1.0) Aspartate Amino Transf (AST/SGOT) 25 U/L (15-37) Alanine Aminotransferase (ALT/SGPT) 36 U/L (16-63) Alkaline Phosphatase 78 U/L (46-116) Creatine Kinase 57 U/L (39-308) Creatine Kinase MB (Mass) 1.7 ng/mL (0.0-3.6) Creatine Kinase MB Relative Index % (0-4) Troponin I Quantitative 0.101 ng/mL (0.000-0.055) YF-Wiq-T-Type Natriuretic Peptide 2122 pg/mL (0-449) Total Protein 6.7 g/dL (6.4-8.2) Albumin 3.0 g/dL (3.4-5.0) 2.8 g/dL (3.4-5.0) Albumin/Globulin Ratio 0.8 (1.0-1.7) Urine Color Yellow Urine Clarity Clear Urine pH 5.0 Urine Specific [place] 1.020 Urine Protein Negative mg/dL (NEG-TRACE) Urine Glucose (UA) Negative mg/dL (NEG) Urine Ketones (Stick) Negative mg/dL (NEG) Urine Blood Negative (NEG) Urine Nitrite Negative (NEG) Urine Bilirubin Negative (NEG) Urine Urobilinogen Dipstick 0.2 mg/dL (0.2 mg/dL) Urine Leukocyte Esterase Negative (NEG) Urine RBC 0 /HPF (0-2) Urine WBC 1-4 /HPF (0-4) Urine Squamous Epithelial Cells Occ /LPF Urine Bacteria 0 /HPF (0-FEW) Urine Mucus Mod /LPF Segmented Neutrophils % 94 % (35-66) Lymphocytes % 5 % (24-48) Monocytes % 1 % (0-10) Platelet Estimate Adequate (ADEQUATE) Large Platelets Occ Phosphorus Level 2.7 mg/dL (2.6-4.7) Procalcitonin < 0.10 ng/mL (0.00-0.10) ECHOCARDIOGRAM ECHOCARDIOGRAM <Conclusion> Left ventricle systolic function is normal.. The Ejection Fraction is 50-55%. Septal motion consistent with conduction abnormality from paced rhythm. There is a pacemaker lead in the right ventricle. The left atrium is moderately dilated. Mild mitral regurgitation. Mild tricuspid regurgitation. The PA pressure was estimated at 35 mmHg. There is no evidence of significant pericardial effusion. DATE: 12/07/17 0745 MPI Conclusion 1. No EKG evidence of stressed induced ischemia. 2. Nuclear imaging shows no reversible ischemia or infarct. 3. Overall normal LV systolic function with an ejection fraction of 58% a small area of mild hypokinesis in the septal wall. 4. Moderately low risk Lexiscan nuclear stress test. DATE: 02/15/18 1258 HEART CATH HEART CATH Conclusion 1. Non obstructive coronary artery disease 2. Moderate global left ventricular systolic dysfunction with ejection fraction estimated at 30-35% 3. No significant mitral regurgitation or aortic stenosis Recommendations Optimization of medical therapy for non ischemic cardiomyopathy. Repeat 2D echo in 3 months and cnsider upgrading pacemaker to Biventricular ICD/RN ANESTHETIST-D. DATE: 05/15/14 1043 ASSESSMENT/PLAN ASSESSMENT/PLAN 1. 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 Chronic systolic/diastolic CHF; compensated 3. PAFIB 4. elevated troponin: peaked at 0.1. likely demand mediated, type 2 5. SSS with PPM in situ: Biotronik. No arrhythmias and nml device function per recent check 6. HLP 7. HTN: controlled 8. Chronic anemia/thrombocytopenia; 10.5/107 9. JAYDON vs CKDs: Cr at 1.6 10. Dizziness Recommendations 1. Continue amio warfarin (INR at 3.4), toprol. Doubt amiodarone issue with low dose. 2. May need CT chest noncontrast, none recently, defer to pulmonary 3. Notable for BARROS and hypoxia improved with O2 use. 4. Obtain TTE and will consider for MPI. Await pulmonary input. 5. Continue with secondary prevention DELMIS ZIMMERMAN APRN Sep 09, 2018 12:57
--- NOTE | 2018-09-09 14:30 | RAD ---
Ventilation/perfusion lung scan, 09/09/2018: HISTORY: Hypoxia, dyspnea The ventilation study was performed utilizing 16 mCi of xenon-133. The patient was unable to fully cooperate due to dyspnea. Very little of the xenon reached the lungs. This portion of the study is not adequate for diagnostic purposes. Perfusion imaging was performed following IV injection of 5.5 mCi of technetium 99m MAA. There are moderate patchy perfusion defects in both lungs involving primarily the upper lobes. A similar pattern of activity was present on an older study from 06/10/2017. No definite new perfusion abnormality is seen. IMPRESSION: 1. Inadequate ventilation exam due to technical factors. 2. Bilateral perfusion defects similar to those seen in 2017. The findings are likely related to the patient's known emphysema. Electronically signed by: Corbin Ruelas MD (09/09/2018 2:26 PM) [facility]
--- NOTE | 2018-09-09 14:57 | PDOC ---
PULMONARY PROGRESS NOTES Vitals Vital Signs Date Time Temp Pulse Resp B/P (MAP) Pulse Ox O2 Delivery O2 Flow Rate FiO2 09/09/18 11:35 93 Room Air 09/09/18 11:00 98.1 67 18 119/57 (77) 98.1 09/09/18 08:00 2.0 General: Alert, No acute distress HEENT: Other Lungs: Clear Cardiovascular: Other Abdomen: Soft, Other Extremities: Other Labs Laboratory Tests Test 09/08/18 15:15 09/08/18 17:57 09/09/18 03:20 09/09/18 03:25 White Blood Count 11.1 x10^3/uL (4.0-11.0) 6.7 x10^3/uL (4.0-11.0) Red Blood Count 3.45 x10^6/uL (4.30-5.70) 3.30 x10^6/uL (4.30-5.70) Hemoglobin 10.9 g/dL (13.0-17.5) 10.5 g/dL (13.0-17.5) Hematocrit 33.3 % (39.0-53.0) 31.7 % (39.0-53.0) Mean Corpuscular Volume 96 fL (79-100) 96 fL (79-100) Mean Corpuscular Hemoglobin 32 pg (25-35) 32 pg (25-35) Mean Corpuscular Hemoglobin Concent 33 g/dL (31-37) 33 g/dL (31-37) Red Cell Distribution Width 14.9 % (11.5-14.5) 14.7 % (11.5-14.5) Platelet Count 114 x10^3/uL (140-400) 107 x10^3/uL (140-400) Neutrophils (%) (Auto) 80 % (31-73) 92 % (31-73) Lymphocytes (%) (Auto) 9 % (24-48) 6 % (24-48) Monocytes (%) (Auto) 9 % (0-9) 3 % (0-9) Eosinophils (%) (Auto) 1 % (0-3) 0 % (0-3) Basophils (%) (Auto) 1 % (0-3) 0 % (0-3) Neutrophils # (Auto) 8.9 x10^3uL (1.8-7.7) 6.1 x10^3uL (1.8-7.7) Lymphocytes # (Auto) 1.0 x10^3/uL (1.0-4.8) 0.4 x10^3/uL (1.0-4.8) Monocytes # (Auto) 1.0 x10^3/uL (0.0-1.1) 0.2 x10^3/uL (0.0-1.1) Eosinophils # (Auto) 0.1 x10^3/uL (0.0-0.7) 0.0 x10^3/uL (0.0-0.7) Basophils # (Auto) 0.1 x10^3/uL (0.0-0.2) 0.0 x10^3/uL (0.0-0.2) Prothrombin Time 34.0 SEC (11.7-14.0) 34.3 SEC (11.7-14.0) Prothromb Time International Ratio 3.4 (0.8-1.1) 3.4 (0.8-1.1) D-Dimer (Yanelis) 0.70 ug/mlFEU (0.00-0.50) Sodium Level 142 mmol/L (136-145) 140 mmol/L (136-145) Potassium Level 4.7 mmol/L (3.5-5.1) 5.1 mmol/L (3.5-5.1) Chloride Level 107 mmol/L (98-107) 105 mmol/L (98-107) Carbon Dioxide Level 28 mmol/L (21-32) 26 mmol/L (21-32) Anion Gap 7 (6-14) 9 (6-14) Blood Urea Nitrogen 44 mg/dL (8-26) 47 mg/dL (8-26) Creatinine 1.6 mg/dL (0.7-1.3) 1.6 mg/dL (0.7-1.3) Estimated GFR (Cockcroft-Gault) 42.1 42.1 BUN/Creatinine Ratio 28 (6-20) Glucose Level 114 mg/dL (70-99) 150 mg/dL (70-99) Calcium Level 10.8 mg/dL (8.5-10.1) 10.6 mg/dL (8.5-10.1) Total Bilirubin 1.4 mg/dL (0.2-1.0) Aspartate Amino Transf (AST/SGOT) 25 U/L (15-37) Alanine Aminotransferase (ALT/SGPT) 36 U/L (16-63) Alkaline Phosphatase 78 U/L (46-116) Creatine Kinase 57 U/L (39-308) Creatine Kinase MB (Mass) 1.7 ng/mL (0.0-3.6) Creatine Kinase MB Relative Index % (0-4) Troponin I Quantitative 0.101 ng/mL (0.000-0.055) 0.079 ng/mL (0.000-0.055) HC-Dom-M-Type Natriuretic Peptide 2122 pg/mL (0-449) Total Protein 6.7 g/dL (6.4-8.2) Albumin 3.0 g/dL (3.4-5.0) 2.8 g/dL (3.4-5.0) Albumin/Globulin Ratio 0.8 (1.0-1.7) Urine Color Yellow Urine Clarity Clear Urine pH 5.0 Urine Specific Hulen 1.020 Urine Protein Negative mg/dL (NEG-TRACE) Urine Glucose (UA) Negative mg/dL (NEG) Urine Ketones (Stick) Negative mg/dL (NEG) Urine Blood Negative (NEG) Urine Nitrite Negative (NEG) Urine Bilirubin Negative (NEG) Urine Urobilinogen Dipstick 0.2 mg/dL (0.2 mg/dL) Urine Leukocyte Esterase Negative (NEG) Urine RBC 0 /HPF (0-2) Urine WBC 1-4 /HPF (0-4) Urine Squamous Epithelial Cells Occ /LPF Urine Bacteria 0 /HPF (0-FEW) Urine Mucus Mod /LPF Segmented Neutrophils % 94 % (35-66) Lymphocytes % 5 % (24-48) Monocytes % 1 % (0-10) Platelet Estimate Adequate (ADEQUATE) Large Platelets Occ Phosphorus Level 2.7 mg/dL (2.6-4.7) Procalcitonin < 0.10 ng/mL (0.00-0.10) Laboratory Tests Test 09/08/18 15:15 09/08/18 17:57 09/09/18 03:20 09/09/18 03:25 White Blood Count 11.1 x10^3/uL (4.0-11.0) 6.7 x10^3/uL (4.0-11.0) Red Blood Count 3.45 x10^6/uL (4.30-5.70) 3.30 x10^6/uL (4.30-5.70) Hemoglobin 10.9 g/dL (13.0-17.5) 10.5 g/dL (13.0-17.5) Hematocrit 33.3 % (39.0-53.0) 31.7 % (39.0-53.0) Mean Corpuscular Volume 96 fL (79-100) 96 fL (79-100) Mean Corpuscular Hemoglobin 32 pg (25-35) 32 pg (25-35) Mean Corpuscular Hemoglobin Concent 33 g/dL (31-37) 33 g/dL (31-37) Red Cell Distribution Width 14.9 % (11.5-14.5) 14.7 % (11.5-14.5) Platelet Count 114 x10^3/uL (140-400) 107 x10^3/uL (140-400) Neutrophils (%) (Auto) 80 % (31-73) 92 % (31-73) Lymphocytes (%) (Auto) 9 % (24-48) 6 % (24-48) Monocytes (%) (Auto) 9 % (0-9) 3 % (0-9) Eosinophils (%) (Auto) 1 % (0-3) 0 % (0-3) Basophils (%) (Auto) 1 % (0-3) 0 % (0-3) Neutrophils # (Auto) 8.9 x10^3uL (1.8-7.7) 6.1 x10^3uL (1.8-7.7) Lymphocytes # (Auto) 1.0 x10^3/uL (1.0-4.8) 0.4 x10^3/uL (1.0-4.8) Monocytes # (Auto) 1.0 x10^3/uL (0.0-1.1) 0.2 x10^3/uL (0.0-1.1) Eosinophils # (Auto) 0.1 x10^3/uL (0.0-0.7) 0.0 x10^3/uL (0.0-0.7) Basophils # (Auto) 0.1 x10^3/uL (0.0-0.2) 0.0 x10^3/uL (0.0-0.2) Prothrombin Time 34.0 SEC (11.7-14.0) 34.3 SEC (11.7-14.0) Prothromb Time International Ratio 3.4 (0.8-1.1) 3.4 (0.8-1.1) D-Dimer (Yanelis) 0.70 ug/mlFEU (0.00-0.50) Sodium Level 142 mmol/L (136-145) 140 mmol/L (136-145) Potassium Level 4.7 mmol/L (3.5-5.1) 5.1 mmol/L (3.5-5.1) Chloride Level 107 mmol/L (98-107) 105 mmol/L (98-107) Carbon Dioxide Level 28 mmol/L (21-32) 26 mmol/L (21-32) Anion Gap 7 (6-14) 9 (6-14) Blood Urea Nitrogen 44 mg/dL (8-26) 47 mg/dL (8-26) Creatinine 1.6 mg/dL (0.7-1.3) 1.6 mg/dL (0.7-1.3) Estimated GFR (Cockcroft-Gault) 42.1 42.1 BUN/Creatinine Ratio 28 (6-20) Glucose Level 114 mg/dL (70-99) 150 mg/dL (70-99) Calcium Level 10.8 mg/dL (8.5-10.1) 10.6 mg/dL (8.5-10.1) Total Bilirubin 1.4 mg/dL (0.2-1.0) Aspartate Amino Transf (AST/SGOT) 25 U/L (15-37) Alanine Aminotransferase (ALT/SGPT) 36 U/L (16-63) Alkaline Phosphatase 78 U/L (46-116) Creatine Kinase 57 U/L (39-308) Creatine Kinase MB (Mass) 1.7 ng/mL (0.0-3.6) Creatine Kinase MB Relative Index % (0-4) Troponin I Quantitative 0.101 ng/mL (0.000-0.055) 0.079 ng/mL (0.000-0.055) CA-Toa-P-Type Natriuretic Peptide 2122 pg/mL (0-449) Total Protein 6.7 g/dL (6.4-8.2) Albumin 3.0 g/dL (3.4-5.0) 2.8 g/dL (3.4-5.0) Albumin/Globulin Ratio 0.8 (1.0-1.7) Urine Color Yellow Urine Clarity Clear Urine pH 5.0 Urine Specific Hulen 1.020 Urine Protein Negative mg/dL (NEG-TRACE) Urine Glucose (UA) Negative mg/dL (NEG) Urine Ketones (Stick) Negative mg/dL (NEG) Urine Blood Negative (NEG) Urine Nitrite Negative (NEG) Urine Bilirubin Negative (NEG) Urine Urobilinogen Dipstick 0.2 mg/dL (0.2 mg/dL) Urine Leukocyte Esterase Negative (NEG) Urine RBC 0 /HPF (0-2) Urine WBC 1-4 /HPF (0-4) Urine Squamous Epithelial Cells Occ /LPF Urine Bacteria 0 /HPF (0-FEW) Urine Mucus Mod /LPF Segmented Neutrophils % 94 % (35-66) Lymphocytes % 5 % (24-48) Monocytes % 1 % (0-10) Platelet Estimate Adequate (ADEQUATE) Large Platelets Occ Phosphorus Level 2.7 mg/dL (2.6-4.7) Procalcitonin < 0.10 ng/mL (0.00-0.10) Medications Active Scripts Medications Dose Route/Sig Max Daily Dose Days Date Category Alprazolam 0.5 Mg Tablet 0.5 Mg PO PRN Q8HRS PRN 09/09/18 Reported Ranitidine Hcl 75 Mg Tablet 75 Mg PO PRN DAILY PRN 09/09/18 Reported Zoloft (Sertraline Hcl) 25 Mg Tablet 1 Tab PO DAILY 09/09/18 Reported Duoneb 0.5-3(2.5) Mg/3 Ml (Albuterol/Ipratropium) 3 Ml Ampul.neb 3 Ml NEB PRN Q4HRS PRN 03/16/18 Reported Miralax (Polyethylene Glycol 3350) 17 Gm Powd.pack 1 Packet PO BID 03/15/18 Reported Ascorbic Acid 500 Mg Tablet 500 Mg PO BID 9/10/18 Reported Super B Complex-Vitamin C (B Complex With Vitamin C) 1 Each Tablet 1 Each PO 12/04/17 Reported Amiodarone Hcl 200 Mg Tablet 100 Mg PO DAILY 06/10/17 Reported Metoprolol Succinate ( Xl ) (Metoprolol Succinate) 25 Mg Tab.er.24h 1 Tab PO QPM 11/13/16 Reported Calcitriol 0.25 Mcg Capsule 0.25 Mcg PO QMTUWTH 05/24/16 Reported Warfarin Sodium 5 Mg Tablet 7.5 Mg PO DAILY 05/24/16 Reported Loratadine 10 Mg Tablet 10 Mg PO QHS 10/16/14 Reported Tamsulosin Hcl 0.4 Mg Cap.er.24h 0.4 Mg PO QHS 10/16/14 Reported Atorvastatin Calcium 10 Mg Tablet 10 Mg PO HS 10/16/14 Reported Flonase (Fluticasone Propionate) 16 Gm Rewey.susp 2 Rewey NS BID 01/06/14 Reported Impression . NOTE DICTATED AECOPD HOME IN AM 3/8 OK WILL CHECK 6 MIN DEENA PEARCE MD Sep 09, 2018 14:56
--- NOTE | 2018-09-09 15:04 | CARD ---
MR#: [id number] Date of Study: 09/09/2018 Ordering Physician: DELMIS ZIMMERMAN, Referring Physician: KAREEM HARRIS, Tech: Rhonda Fong APPROVED REPORT EXAM: Two-dimensional and M-mode echocardiogram with Doppler and color Doppler. Other Information Quality : GoodHR: 84bpm Rhythm : Pacemaker INDICATION Atrial Fibrillation CAD Surgery/Intervention Pacemaker: Date: 2013 2D DIMENSIONS RVDd4.0 (2.9-3.5cm)Left Atrium(2D)4.7 (1.6-4.0cm) IVSd1.4 (0.7-1.1cm)Aortic Root(2D)3.8 (2.0-3.7cm) LVDd6.2 (3.9-5.9cm)LVOT Diameter2.5 (1.8-2.4cm) PWd1.5 (0.7-1.1cm)LVDs4.1 (2.5-4.0cm) FS (%) 33.5 %SV117.5 ml LVEF(%)61.2 (>50%) Aortic Valve AoV Peak Dilip.140.3cm/sAoV VTI24.1cm AO Peak GR.7.9mmHgLVOT Peak Dilip.115.6cm/s LVOT VTI 26.55cmAO Mean GR.3mmHg ABRIL (VMAX)2.43lu6MUR (VTI)5.21cm2 Mitral Valve MV E Ishtfthd57.5cm/sMV DECEL DEHU113cp MV A Vmxsksaw81.5cm/sMV COR36gp E/A Ratio1.0MVA (PHT)4.04cm2 TDI E/Lateral E'9.4E/Medial E'20.4 Pulmonary Valve PV Peak Povxzzqa12.3cm/sPV Peak Grad.4mmHg Tricuspid Valve TR P. [id number]/sRAP [id number] TR Peak Gr.50nuSyNTZS94bfYq Pulmonary Vein S1 Qhqjhcig73.0cm/sD2 Jviqgubs06.4cm/s PVa [id number] LEFT VENTRICLE The Left Ventricle is mildly dilated. There is moderate concentric left ventricular hypertrophy. The left ventricular systolic function is normal and the ejection fraction is within normal range. The Ej ection Fraction is 50-55%. There is normal LV segmental wall motion. The left ventricular diastolic f unction and filling is normal for age. RIGHT VENTRICLE The right ventricle is mildly dilated. There is normal right ventricular wall thickness. The right ve ntricular systolic function is normal. There is a pacemaker lead in the right ventricle. ATRIA The left atrium is moderately dilated. The right atrium is moderately dilated. There is a pacemaker l ead seen in the right atrium. The interatrial septum is intact with no evidence for an atrial septal defect or patent foramen ovale as noted on 2-D or Doppler imaging. AORTIC VALVE The aortic valve is calcified but opens well. Doppler and Color Flow revealed no significant aortic r egurgitation. There is no significant aortic valvular stenosis. MITRAL VALVE The mitral valve is normal in structure and function. There is no evidence of mitral valve prolapse. There is no mitral valve stenosis. Doppler and Color-flow revealed trace to mild mitral regurgitation . TRICUSPID VALVE The tricuspid valve is normal in structure and function. Doppler and Color Flow revealed mild tricusp id regurgitation. RVSP 35 mm Hg. There is no tricuspid valve stenosis. PULMONIC VALVE The pulmonic valve is not well visualized. Doppler and Color Flow revealed mild pulmonic valvular reg urgitation. There is no pulmonic valvular stenosis. GREAT VESSELS The aortic root is borderline enlarged. The IVC was not well visualized. PERICARDIAL EFFUSION There is no evidence of significant pericardial effusion. Critical Notification Critical Value: No <Conclusion> The left ventricular systolic function is normal and the ejection fraction is within normal range. Th e Ejection Fraction is 50-55%. There is normal LV segmental wall motion. There is a pacemaker lead in the right ventricle. Doppler and Color Flow revealed mild tricuspid regurgitation. RVSP 35 mm Hg. Signed by : Isac Muniz, Electronically Approved : 09/09/2018 15:04:02
[2018-09-09 15:15] LABS: CHOLESTEROL/HDL RATIO 2.3
--- NOTE | 2018-09-09 15:20 | NUR ---
SS following for discharge planning. SS reviewed pt chart. Pt is from home. Six minute walk has been ordered. No discharge needs noted at this time. SS will continue for pending discharge needs.
[2018-09-09] MEDS ORDERED: WARFARIN 7.5 MG TABLET. PO SCH (16:00)
[2018-09-09] MEDS: METOPROLOL SUCC 24HR ER 25 MG TAB.ER.24H. PO SCH (17:46)
[2018-09-09] MEDS: TAMSULOSIN 0.4 MG CAP.ER.24H. PO SCH (22:09)
[2018-09-09] MEDS: CETIRIZINE HCL 10 MG TABLET. PO SCH (22:09)
[2018-09-09] MEDS: ATORVASTATIN CALCIUM 10 MG TABLET. PO SCH (22:09)
[2018-09-09] MEDS: LORazepam 0.5 MG TABLET PO PRN (22:09)
--- NOTE | 2018-09-09 23:09 | CONS ---
DATE OF CONSULTATION: 09/09/2018 ATTENDING PHYSICIAN: Jatin Snow M.D. REASON FOR CONSULTATION: The patient is seen in Pulmonary consultation at the request of Dr. Snow for increasing shortness of air. HISTORY OF PRESENT ILLNESS: The patient is a 78-year-old with COPD, mild obstructive sleep apnea, compliant with CPAP at home. He called the office sometime last week, was treated for acute exacerbation of COPD. He failed outpatient therapy. He was admitted. I was asked to see him in consultation. Over the last 24 hours, he has had some increasing shortness of breath, cough productive of some discolored sputum. Most of the time, his cough is nonproductive. The patient does have oxygen at home and uses oxygen on a p.r.n. basis. He is currently not smoking. PAST MEDICAL HISTORY: 1. Moderate COPD. 2. Chronic AFib. 3. Obstructive sleep apnea. 4. Seasonal allergies. 5. Renal insufficiency. PAST SURGICAL HISTORY: Status post cholecystectomy, pacemaker and tonsillectomy. REVIEW OF SYSTEMS: CONSTITUTIONAL: No fever or chills. EYES: No change in visual acuity. HENT: No nasal congestion or sore throat. PULMONARY: As indicated above. CARDIOVASCULAR: No chest pain or pressure. GASTROINTESTINAL: No nausea, vomiting or diarrhea. GENITOURINARY: No dysuria or frequency. MUSCULOSKELETAL: No localized muscle aches or joint pains. SKIN: No new rashes. NEUROLOGIC: No headaches, diplopia or blurred vision. MEDICATIONS: Current medication list was reviewed. ALLERGIES: No known drug allergies. SOCIAL HISTORY: He quit tobacco several years ago. Denies any alcohol intake. PHYSICAL EXAMINATION: GENERAL: On examination, the patient is in no respiratory distress. VITAL SIGNS: Stable. O2 saturation is greater than 92%, currently on 2 liters. HEENT: Eyes, the sclerae were nonicteric. NECK: Jugular venous distention was not elevated. No lymphadenopathy. CHEST: Full expansion. LUNGS: Adequate airway flow, with no current wheezes. CARDIOVASCULAR EXAMINATION: Regular rate and rhythm with S1, S2. No S3. ABDOMEN: Soft, nontender and nondistended. EXTREMITIES: No clubbing, cyanosis or edema. IMAGING: Chest x-ray was reviewed, no acute cardiopulmonary process. V/Q scan was reviewed. There are no significant unmatched perfusion defects. IMPRESSION: 1. Acute respiratory failure. 2. Acute exacerbation of chronic obstructive pulmonary disease. 3. Demand ischemia non-ST segment elevation myocardial infarction. 4. Obstructive sleep apnea. 5. Secondary pulmonary hypertension. PLAN: 1. Respiratory symptoms have improved, though I think most of the patient's symptoms were related to acute exacerbation of COPD. 2. Follow Cardiology input. 3. No further workup needed. 4. A 6-minute walk prior to discharge. I do appreciate the privilege in sharing in the patient's care. DEENA PEARCE MD DR: JAIME/deidre JOB#: [id number] / [id number]
[2018-09-10 03:58] VITALS: BP 111/64
[2018-09-10 04:53] LABS: BASO % 0 % (0-3); EOS # 0.1 x10^3/uL (0.0-0.7); EOS % 1 % (0-3); HEMATOCRIT 30.6 % (39.0-53.0); HEMOGLOBIN 10.1 g/dL (13.0-17.5); LYMPH # 1.1 x10^3/uL (1.0-4.8); LYMPH % 12 % (24-48); MEAN CORPUSCULAR HEMOGLOBIN 32 pg (25-35); MEAN CORPUSCULAR HGB CONC 33 g/dL (31-37); MEAN CORPUSCULAR VOLUME 96 fL (79-100); MONO # 0.8 x10^3/uL (0.0-1.1); MONO % 10 % (0-9); NEUT # 6.7 x10^3uL (1.8-7.7); NEUT % 77 % (31-73); PLATELET COUNT 113 x10^3/uL (140-400); RED BLOOD COUNT 3.19 x10^6/uL (4.30-5.70); RED CELL DISTRIBUTION WIDTH 14.8 % (11.5-14.5); WHITE BLOOD COUNT 8.7 x10^3/uL (4.0-11.0)
[2018-09-10 05:03] LABS: PROTHROMBIN TIME PATIENT 33.5 SEC (11.7-14.0)
[2018-09-10 07:00] VITALS: BP 129/66
--- NOTE | 2018-09-10 07:40 | PDOC ---
PROGRESS NOTES Chief Complaint Chief Complaint A/P: Acute Hypoxia - with significant desaturations, will check INR, d dimer positive , will check VQ scan, consult pulmonology. This does not appear to be a severe CHF exacerbation, but likely a mild one. 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 Ejection fraction of 50-55% on most recent echocardiogram. will start IV diuresis. Defer to cardiology on further diuresis with monitoring of renal function. Paroxysmal atrial fibrillation - currently irregular on monitor. Treated with amiodarone and anticoagulation. Continue telemetry. Continue present treatment. Sick sinus syndrome and permanent pacemaker - appears to be capturing on monitor. Will monitor Hyperlipidemia - Continue medical treatment CKD - Cr 1.6, does not seem to have current JAYDON. Consulted nephrology Hypercalcemia - 10.8. Is on cincacalcet, consulted nephrology FEN - Cardiac diet, 2L fluid restriction PPX - on warfarin, check INR FULL CODE Inpatient for acute hypoxia for d/c today History of Present Illness History of Present Illness Mr Quintero is a 78yo m w/ PMHx CHF, afib, PPM, CAD, HTN, COPD who presents with shortness of breath at home for the past 3-5 days and decrease in O2 sats with activity into the 80s and upper 70s on his home pulse oximetry, was also hypoxic 84-88% in the ED, placed on O2. Unclear if weight gain, he states he thinks he actually lost a pound in the past week; feet/legs not much more edematous recently. NT-proBNP of 2122 with Cr of 1.6 and troponin I of 0.101. CXR with cardiomegaly. Mildly anemic. Calcium 10.8 09/09: Negative VQ, negative procalcitonin. Echo consistent with diastolic dysfunction, good EF. Overnight felt better more with nebs than anything else. Improved with COPD exacerbation treatment. 6 minute walk today to confirm how much O2 he needs. He denies CP or leg swelling today. good UOP, passing flatus Plan: Treat COPD exacerbation, wean O2 as tolerated 6 minute walk then home for COPD exacerbation Vitals Vitals Vital Signs Date Time Temp Pulse Resp B/P (MAP) Pulse Ox O2 Delivery O2 Flow Rate FiO2 09/10/18 03:58 97.7 72 16 111/64 (80) 95 Nasal Cannula 2.0 97.7 Physical Exam General: Alert, Oriented X3, Cooperative, No acute distress Heart: Regular rate, Normal S1, Normal S2 Lungs: Clear Abdomen: Normal bowel sounds, Soft, No tenderness, No hepatosplenomegaly, No masses Extremities: No clubbing, No cyanosis, Normal pulses, No tenderness/swelling, Other (Scant edema) Skin: No rashes, No breakdown, No significant lesion Labs LABS Laboratory Tests Test 09/10/18 04:05 White Blood Count 8.7 x10^3/uL (4.0-11.0) Red Blood Count 3.19 x10^6/uL (4.30-5.70) Hemoglobin 10.1 g/dL (13.0-17.5) Hematocrit 30.6 % (39.0-53.0) Mean Corpuscular Volume 96 fL (79-100) Mean Corpuscular Hemoglobin 32 pg (25-35) Mean Corpuscular Hemoglobin Concent 33 g/dL (31-37) Red Cell Distribution Width 14.8 % (11.5-14.5) Platelet Count 113 x10^3/uL (140-400) Neutrophils (%) (Auto) 77 % (31-73) Lymphocytes (%) (Auto) 12 % (24-48) Monocytes (%) (Auto) 10 % (0-9) Eosinophils (%) (Auto) 1 % (0-3) Basophils (%) (Auto) 0 % (0-3) Neutrophils # (Auto) 6.7 x10^3uL (1.8-7.7) Lymphocytes # (Auto) 1.1 x10^3/uL (1.0-4.8) Monocytes # (Auto) 0.8 x10^3/uL (0.0-1.1) Eosinophils # (Auto) 0.1 x10^3/uL (0.0-0.7) Basophils # (Auto) 0.0 x10^3/uL (0.0-0.2) Prothrombin Time 33.5 SEC (11.7-14.0) Prothromb Time International Ratio 3.3 (0.8-1.1) Assessment and Plan Assessmemt and Plan Problems Medical Problems: (1) CHF exacerbation Status: Acute (2) COPD with exacerbation Status: Acute Comment Review of Relevant I have reviewed the following items aron (where applicable) has been applied. Labs Laboratory Tests Test 09/08/18 15:15 09/08/18 17:57 09/09/18 03:20 09/09/18 03:25 White Blood Count 11.1 x10^3/uL (4.0-11.0) 6.7 x10^3/uL (4.0-11.0) Red Blood Count 3.45 x10^6/uL (4.30-5.70) 3.30 x10^6/uL (4.30-5.70) Hemoglobin 10.9 g/dL (13.0-17.5) 10.5 g/dL (13.0-17.5) Hematocrit 33.3 % (39.0-53.0) 31.7 % (39.0-53.0) Mean Corpuscular Volume 96 fL (79-100) 96 fL (79-100) Mean Corpuscular Hemoglobin 32 pg (25-35) 32 pg (25-35) Mean Corpuscular Hemoglobin Concent 33 g/dL (31-37) 33 g/dL (31-37) Red Cell Distribution Width 14.9 % (11.5-14.5) 14.7 % (11.5-14.5) Platelet Count 114 x10^3/uL (140-400) 107 x10^3/uL (140-400) Neutrophils (%) (Auto) 80 % (31-73) 92 % (31-73) Lymphocytes (%) (Auto) 9 % (24-48) 6 % (24-48) Monocytes (%) (Auto) 9 % (0-9) 3 % (0-9) Eosinophils (%) (Auto) 1 % (0-3) 0 % (0-3) Basophils (%) (Auto) 1 % (0-3) 0 % (0-3) Neutrophils # (Auto) 8.9 x10^3uL (1.8-7.7) 6.1 x10^3uL (1.8-7.7) Lymphocytes # (Auto) 1.0 x10^3/uL (1.0-4.8) 0.4 x10^3/uL (1.0-4.8) Monocytes # (Auto) 1.0 x10^3/uL (0.0-1.1) 0.2 x10^3/uL (0.0-1.1) Eosinophils # (Auto) 0.1 x10^3/uL (0.0-0.7) 0.0 x10^3/uL (0.0-0.7) Basophils # (Auto) 0.1 x10^3/uL (0.0-0.2) 0.0 x10^3/uL (0.0-0.2) Prothrombin Time 34.0 SEC (11.7-14.0) 34.3 SEC (11.7-14.0) Prothromb Time International Ratio 3.4 (0.8-1.1) 3.4 (0.8-1.1) D-Dimer (Yanelis) 0.70 ug/mlFEU (0.00-0.50) Sodium Level 142 mmol/L (136-145) 140 mmol/L (136-145) Potassium Level 4.7 mmol/L (3.5-5.1) 5.1 mmol/L (3.5-5.1) Chloride Level 107 mmol/L (98-107) 105 mmol/L (98-107) Carbon Dioxide Level 28 mmol/L (21-32) 26 mmol/L (21-32) Anion Gap 7 (6-14) 9 (6-14) Blood Urea Nitrogen 44 mg/dL (8-26) 47 mg/dL (8-26) Creatinine 1.6 mg/dL (0.7-1.3) 1.6 mg/dL (0.7-1.3) Estimated GFR (Cockcroft-Gault) 42.1 42.1 BUN/Creatinine Ratio 28 (6-20) Glucose Level 114 mg/dL (70-99) 150 mg/dL (70-99) Calcium Level 10.8 mg/dL (8.5-10.1) 10.6 mg/dL (8.5-10.1) Total Bilirubin 1.4 mg/dL (0.2-1.0) Aspartate Amino Transf (AST/SGOT) 25 U/L (15-37) Alanine Aminotransferase (ALT/SGPT) 36 U/L (16-63) Alkaline Phosphatase 78 U/L (46-116) Creatine Kinase 57 U/L (39-308) Creatine Kinase MB (Mass) 1.7 ng/mL (0.0-3.6) Creatine Kinase MB Relative Index % (0-4) Troponin I Quantitative 0.101 ng/mL (0.000-0.055) 0.079 ng/mL (0.000-0.055) YK-Fou-T-Type Natriuretic Peptide 2122 pg/mL (0-449) Total Protein 6.7 g/dL (6.4-8.2) Albumin 3.0 g/dL (3.4-5.0) 2.8 g/dL (3.4-5.0) Albumin/Globulin Ratio 0.8 (1.0-1.7) Urine Color Yellow Urine Clarity Clear Urine pH 5.0 Urine Specific [place] 1.020 Urine Protein Negative mg/dL (NEG-TRACE) Urine Glucose (UA) Negative mg/dL (NEG) Urine Ketones (Stick) Negative mg/dL (NEG) Urine Blood Negative (NEG) Urine Nitrite Negative (NEG) Urine Bilirubin Negative (NEG) Urine Urobilinogen Dipstick 0.2 mg/dL (0.2 mg/dL) Urine Leukocyte Esterase Negative (NEG) Urine RBC 0 /HPF (0-2) Urine WBC 1-4 /HPF (0-4) Urine Squamous Epithelial Cells Occ /LPF Urine Bacteria 0 /HPF (0-FEW) Urine Mucus Mod /LPF Segmented Neutrophils % 94 % (35-66) Lymphocytes % 5 % (24-48) Monocytes % 1 % (0-10) Platelet Estimate Adequate (ADEQUATE) Large Platelets Occ Phosphorus Level 2.7 mg/dL (2.6-4.7) Triglycerides Level 41 mg/dL (0-150) Cholesterol Level 143 mg/dL (0-200) LDL Cholesterol, Calculated 74 mg/dL (0-100) VLDL Cholesterol, Calculated 8 mg/dL (0-40) Non-HDL Cholesterol Calculated 82 mg/dL (0-129) HDL Cholesterol 61 mg/dL (40-60) Cholesterol/HDL Ratio 2.3 Procalcitonin < 0.10 ng/mL (0.00-0.10) Test 09/10/18 04:05 White Blood Count 8.7 x10^3/uL (4.0-11.0) Red Blood Count 3.19 x10^6/uL (4.30-5.70) Hemoglobin 10.1 g/dL (13.0-17.5) Hematocrit 30.6 % (39.0-53.0) Mean Corpuscular Volume 96 fL (79-100) Mean Corpuscular Hemoglobin 32 pg (25-35) Mean Corpuscular Hemoglobin Concent 33 g/dL (31-37) Red Cell Distribution Width 14.8 % (11.5-14.5) Platelet Count 113 x10^3/uL (140-400) Neutrophils (%) (Auto) 77 % (31-73) Lymphocytes (%) (Auto) 12 % (24-48) Monocytes (%) (Auto) 10 % (0-9) Eosinophils (%) (Auto) 1 % (0-3) Basophils (%) (Auto) 0 % (0-3) Neutrophils # (Auto) 6.7 x10^3uL (1.8-7.7) Lymphocytes # (Auto) 1.1 x10^3/uL (1.0-4.8) Monocytes # (Auto) 0.8 x10^3/uL (0.0-1.1) Eosinophils # (Auto) 0.1 x10^3/uL (0.0-0.7) Basophils # (Auto) 0.0 x10^3/uL (0.0-0.2) Prothrombin Time 33.5 SEC (11.7-14.0) Prothromb Time International Ratio 3.3 (0.8-1.1) Laboratory Tests Test 09/10/18 04:05 White Blood Count 8.7 x10^3/uL (4.0-11.0) Red Blood Count 3.19 x10^6/uL (4.30-5.70) Hemoglobin 10.1 g/dL (13.0-17.5) Hematocrit 30.6 % (39.0-53.0) Mean Corpuscular Volume 96 fL (79-100) Mean Corpuscular Hemoglobin 32 pg (25-35) Mean Corpuscular Hemoglobin Concent 33 g/dL (31-37) Red Cell Distribution Width 14.8 % (11.5-14.5) Platelet Count 113 x10^3/uL (140-400) Neutrophils (%) (Auto) 77 % (31-73) Lymphocytes (%) (Auto) 12 % (24-48) Monocytes (%) (Auto) 10 % (0-9) Eosinophils (%) (Auto) 1 % (0-3) Basophils (%) (Auto) 0 % (0-3) Neutrophils # (Auto) 6.7 x10^3uL (1.8-7.7) Lymphocytes # (Auto) 1.1 x10^3/uL (1.0-4.8) Monocytes # (Auto) 0.8 x10^3/uL (0.0-1.1) Eosinophils # (Auto) 0.1 x10^3/uL (0.0-0.7) Basophils # (Auto) 0.0 x10^3/uL (0.0-0.2) Prothrombin Time 33.5 SEC (11.7-14.0) Prothromb Time International Ratio 3.3 (0.8-1.1) Medications Current Medications Albuterol/ Ipratropium (Duoneb) 3 ml 1X ONCE NEB ; Start 09/08/18 at 14:30; Stop 09/08/18 at 14:31; Status DC Methylprednisolone Sodium Succinate (SOLU-Medrol 125MG VIAL) 125 mg 1X ONCE IV Last administered on 09/08/18at 15:27; Start 09/08/18 at 14:30; Stop 09/08/18 at 14:31; Status DC Ondansetron HCl (Zofran) 4 mg PRN Q8HRS PRN IV NAUSEA/VOMITING; Start 09/08/18 at 17:30; Stop 09/09/18 at 17:29; Status DC Albuterol/ Ipratropium (Duoneb) 3 ml RTQID NEB ; Start 09/08/18 at 20:00; Stop at 20:00; Status DC Ondansetron HCl (Zofran) 4 mg PRN Q6HRS PRN IV NAUSEA/VOMITING; Start 09/08/18 at 17:45 Acetaminophen (Tylenol) 650 mg PRN Q6HRS PRN PO Headaches, Temp > 101.5F; Start 09/08/18 at 17:45 Senna/Docusate Sodium (Senna Plus) 1 tab BID PO Last administered on 09/09/18at 22:09; Start 09/08/18 at 21:00 Lactulose (Lactulose) 20 gm PRN Q12HR PRN PO CONSTIPATION; Start 09/08/18 at 17: 45 Heparin Sodium (Porcine) (Heparin Sodium) 5,000 unit Q8HRS SQ ; Start 09/08/18 at 18:00; Stop 09/08/18 at 22:17; Status DC Furosemide (Lasix) 20 mg 1X ONCE IVP Last administered on 09/08/18 19:40; Start 09/08/18 at 17:45; Stop 09/08/18 at 18:17; Status DC Amiodarone HCl (Cordarone) 100 mg DAILY PO Last administered on 09/09/18 08:36 ; Start 09/09/18 at 09:00 Ascorbic Acid (Vitamin C) 500 mg BID PO Last administered on 09/09/18 22:09; Start 09/08/18 at 21:00 Atorvastatin Calcium (Lipitor) 10 mg HS PO Last administered on 09/09/18 22:09 ; Start 09/08/18 at 21:00 Ferrous Sulfate (Feosol) 325 mg BIDWMEALS PO Last administered on 09/09/18 17: 47; Start 09/08/18 at 18:15 Fluticasone Propionate (Flonase) 1 spray BID NS Last administered on 09/09/18 22:10; Start 09/08/18 at 21:00 Albuterol/ Ipratropium (Duoneb) 3 ml QID NEB Last administered on 09/09/18 19: 41; Start 09/08/18 at 21:00 Metoprolol Succinate (Toprol Xl) 25 mg QPM PO Last administered on 09/09/18 17: 46; Start 09/08/18 at 18:00 Tamsulosin HCl (Flomax) 0.4 mg QHS PO Last administered on 09/09/18 22:09; Start 09/08/18 at 21:00 Calcitriol (Rocaltrol) 0.25 mcg MoWeFr PO ; Start 09/10/18 at 09:00 Cetirizine HCl (ZyrTEC) 10 mg QHS PO Last administered on 09/09/18 22:09; Start 09/08/18 at 21:00 Polyethylene Glycol (miraLAX PACKET) 17 gm BID PO Last administered on 3/7/ 19at 22:08; Start 09/08/18 at 21:00 Warfarin Sodium (Coumadin) 5 mg MoWeFr@1600 PO ; Start 09/10/18 at 16:00 Warfarin Sodium (Coumadin) 7.5 mg TuThSa PO ; Start 09/09/18 at 16:00; Stop at 16:00; Status DC Warfarin Sodium (Coumadin Per Physician) 1 each PRN DAILY PRN MC SEE COMMENTS Last administered on 09/09/18at 09:04; Start 09/08/18 at 18:30 Lorazepam (Ativan) 0.25 mg PRN BID PRN PO ANXIETY / AGITATION Last administered on 09/09/18at 22:09; Start 09/08/18 at 20:30 Warfarin Sodium (Coumadin) 7.5 mg SuTuThSa@1600 PO ; Start 09/11/18 at 16:00 Active Scripts Active Reported Alprazolam 0.5 Mg Tablet 0.5 Mg PO PRN Q8HRS PRN Ranitidine Hcl 75 Mg Tablet 75 Mg PO PRN DAILY PRN Zoloft (Sertraline Hcl) 25 Mg Tablet 1 Tab PO DAILY Duoneb 0.5-3(2.5) Mg/3 Ml (Albuterol/Ipratropium) 3 Ml Ampul.neb 3 Ml NEB PRN Q4HRS PRN Miralax (Polyethylene Glycol 3350) 17 Gm Powd.pack 1 Packet PO BID Ascorbic Acid 500 Mg Tablet 500 Mg PO BID Super B Complex-Vitamin C (B Complex With Vitamin C) 1 Each Tablet 1 Each PO Amiodarone Hcl 200 Mg Tablet 100 Mg PO DAILY Metoprolol Succinate ( Xl ) (Metoprolol Succinate) 25 Mg Tab.er.24h 1 Tab PO QPM Calcitriol 0.25 Mcg Capsule 0.25 Mcg PO QMTUWTH Warfarin Sodium 5 Mg Tablet 7.5 Mg PO DAILY Loratadine 10 Mg Tablet 10 Mg PO QHS Tamsulosin Hcl 0.4 Mg Cap.er.24h 0.4 Mg PO QHS Atorvastatin Calcium 10 Mg Tablet 10 Mg PO HS Flonase (Fluticasone Propionate) 16 Gm [place].susp 2 [place] NS BID Vitals/I & O Vital Sign - Last 24 Hours 09/09/18 09/09/18 09/09/18 09/09/18 07:50 08:00 08:36 11:00 Temp 98.1 98.1 Pulse 70 67 Resp 18 B/P (MAP) 123/69 119/57 (77) Pulse Ox 97 93 O2 Delivery Nasal Cannula Nasal Cannula Room Air O2 Flow Rate 2.0 2.0 09/09/18 09/09/18 09/09/18 09/09/18 11:35 15:00 15:49 17:46 Temp 97.4 97.4 Pulse 66 76 Resp 18 B/P (MAP) 129/66 (87) 119/64 Pulse Ox 93 93 93 O2 Delivery Room Air Room Air Room Air 09/09/18 09/09/18 09/09/18 09/09/18 19:41 19:46 20:00 23:04 Temp 97.3 97.4 97.3 97.4 Pulse 69 64 Resp 16 16 B/P (MAP) 132/61 (84) 121/57 (78) Pulse Ox 93 98 99 O2 Delivery Room Air Nasal Cannula Room Air Nasal Cannula O2 Flow Rate 2.0 2.0 09/10/18 03:58 Temp 97.7 97.7 Pulse 72 Resp 16 B/P (MAP) 111/64 (80) Pulse Ox 95 O2 Delivery Nasal Cannula O2 Flow Rate 2.0 Intake and Output 09/09/18 09/09/18 09/10/18 14:59 22:59 06:59 Intake Total 1020 ml 400 ml Output Total 800 ml 900 ml 825 ml Balance -800 ml 120 ml -425 ml KAREEM HARRIS MD Sep 10, 2018 07:40
[2018-09-10] MEDS: IPRATRPIUM/ALBUTEROL 0.5/2.5MG 3 ML NEBU. NEB SCH ×2 (07:54→11:45)
[2018-09-10] MEDS: FERROUS SULFATE 325 MG TABLET. PO SCH (08:13)
[2018-09-10] MEDS: SENNOSIDES/DOCUSATE 8.6/50MG TABLET. PO SCH (08:14)
[2018-09-10] MEDS: AMIODARONE HCL 200 MG TABLET. PO SCH (08:14)
[2018-09-10] MEDS: ASCORBIC ACID 500 MG TABLET PO SCH (08:14)
[2018-09-10] MEDS: POLYETHYLENE GLYCOL 3350 17 GM PACKET. PO SCH (08:15)
[2018-09-10] MEDS: FLUTICASONE 50MCG/NASAL SPRAY 16GM BOTTLE. NS SCH (09:00)
[2018-09-10] MEDS ORDERED: CALCITRIOL 0.25 MCG CAPSULE. PO SCH (09:00)
--- NOTE | 2018-09-10 10:18 | PDOC ---
PULMONARY PROGRESS NOTES Subjective PT BETTER LESS SOA Vitals Vital Signs Date Time Temp Pulse Resp B/P (MAP) Pulse Ox O2 Delivery O2 Flow Rate FiO2 09/10/18 08:14 70 129/66 09/10/18 07:55 95 Room Air 09/10/18 07:00 97.6 18 2.0 97.6 ROS: No Nausea, No Chest Pain, No Abdominal Pain, No Increase Cough General: Alert, No acute distress Lungs: Clear Cardiovascular: S1, S2, Other Abdomen: Soft, Other Neuro Exam: Alert Extremities: No Edema, Other Skin: Warm Labs Laboratory Tests Test 09/08/18 15:15 09/08/18 17:57 09/09/18 03:20 09/09/18 03:25 White Blood Count 11.1 x10^3/uL (4.0-11.0) 6.7 x10^3/uL (4.0-11.0) Red Blood Count 3.45 x10^6/uL (4.30-5.70) 3.30 x10^6/uL (4.30-5.70) Hemoglobin 10.9 g/dL (13.0-17.5) 10.5 g/dL (13.0-17.5) Hematocrit 33.3 % (39.0-53.0) 31.7 % (39.0-53.0) Mean Corpuscular Volume 96 fL (79-100) 96 fL (79-100) Mean Corpuscular Hemoglobin 32 pg (25-35) 32 pg (25-35) Mean Corpuscular Hemoglobin Concent 33 g/dL (31-37) 33 g/dL (31-37) Red Cell Distribution Width 14.9 % (11.5-14.5) 14.7 % (11.5-14.5) Platelet Count 114 x10^3/uL (140-400) 107 x10^3/uL (140-400) Neutrophils (%) (Auto) 80 % (31-73) 92 % (31-73) Lymphocytes (%) (Auto) 9 % (24-48) 6 % (24-48) Monocytes (%) (Auto) 9 % (0-9) 3 % (0-9) Eosinophils (%) (Auto) 1 % (0-3) 0 % (0-3) Basophils (%) (Auto) 1 % (0-3) 0 % (0-3) Neutrophils # (Auto) 8.9 x10^3uL (1.8-7.7) 6.1 x10^3uL (1.8-7.7) Lymphocytes # (Auto) 1.0 x10^3/uL (1.0-4.8) 0.4 x10^3/uL (1.0-4.8) Monocytes # (Auto) 1.0 x10^3/uL (0.0-1.1) 0.2 x10^3/uL (0.0-1.1) Eosinophils # (Auto) 0.1 x10^3/uL (0.0-0.7) 0.0 x10^3/uL (0.0-0.7) Basophils # (Auto) 0.1 x10^3/uL (0.0-0.2) 0.0 x10^3/uL (0.0-0.2) Prothrombin Time 34.0 SEC (11.7-14.0) 34.3 SEC (11.7-14.0) Prothromb Time International Ratio 3.4 (0.8-1.1) 3.4 (0.8-1.1) D-Dimer (Yanelis) 0.70 ug/mlFEU (0.00-0.50) Sodium Level 142 mmol/L (136-145) 140 mmol/L (136-145) Potassium Level 4.7 mmol/L (3.5-5.1) 5.1 mmol/L (3.5-5.1) Chloride Level 107 mmol/L (98-107) 105 mmol/L (98-107) Carbon Dioxide Level 28 mmol/L (21-32) 26 mmol/L (21-32) Anion Gap 7 (6-14) 9 (6-14) Blood Urea Nitrogen 44 mg/dL (8-26) 47 mg/dL (8-26) Creatinine 1.6 mg/dL (0.7-1.3) 1.6 mg/dL (0.7-1.3) Estimated GFR (Cockcroft-Gault) 42.1 42.1 BUN/Creatinine Ratio 28 (6-20) Glucose Level 114 mg/dL (70-99) 150 mg/dL (70-99) Calcium Level 10.8 mg/dL (8.5-10.1) 10.6 mg/dL (8.5-10.1) Total Bilirubin 1.4 mg/dL (0.2-1.0) Aspartate Amino Transf (AST/SGOT) 25 U/L (15-37) Alanine Aminotransferase (ALT/SGPT) 36 U/L (16-63) Alkaline Phosphatase 78 U/L (46-116) Creatine Kinase 57 U/L (39-308) Creatine Kinase MB (Mass) 1.7 ng/mL (0.0-3.6) Creatine Kinase MB Relative Index % (0-4) Troponin I Quantitative 0.101 ng/mL (0.000-0.055) 0.079 ng/mL (0.000-0.055) QO-Vwh-N-Type Natriuretic Peptide 2122 pg/mL (0-449) Total Protein 6.7 g/dL (6.4-8.2) Albumin 3.0 g/dL (3.4-5.0) 2.8 g/dL (3.4-5.0) Albumin/Globulin Ratio 0.8 (1.0-1.7) Urine Color Yellow Urine Clarity Clear Urine pH 5.0 Urine Specific [place] 1.020 Urine Protein Negative mg/dL (NEG-TRACE) Urine Glucose (UA) Negative mg/dL (NEG) Urine Ketones (Stick) Negative mg/dL (NEG) Urine Blood Negative (NEG) Urine Nitrite Negative (NEG) Urine Bilirubin Negative (NEG) Urine Urobilinogen Dipstick 0.2 mg/dL (0.2 mg/dL) Urine Leukocyte Esterase Negative (NEG) Urine RBC 0 /HPF (0-2) Urine WBC 1-4 /HPF (0-4) Urine Squamous Epithelial Cells Occ /LPF Urine Bacteria 0 /HPF (0-FEW) Urine Mucus Mod /LPF Segmented Neutrophils % 94 % (35-66) Lymphocytes % 5 % (24-48) Monocytes % 1 % (0-10) Platelet Estimate Adequate (ADEQUATE) Large Platelets Occ Phosphorus Level 2.7 mg/dL (2.6-4.7) Triglycerides Level 41 mg/dL (0-150) Cholesterol Level 143 mg/dL (0-200) LDL Cholesterol, Calculated 74 mg/dL (0-100) VLDL Cholesterol, Calculated 8 mg/dL (0-40) Non-HDL Cholesterol Calculated 82 mg/dL (0-129) HDL Cholesterol 61 mg/dL (40-60) Cholesterol/HDL Ratio 2.3 Procalcitonin < 0.10 ng/mL (0.00-0.10) Test 09/10/18 04:05 White Blood Count 8.7 x10^3/uL (4.0-11.0) Red Blood Count 3.19 x10^6/uL (4.30-5.70) Hemoglobin 10.1 g/dL (13.0-17.5) Hematocrit 30.6 % (39.0-53.0) Mean Corpuscular Volume 96 fL (79-100) Mean Corpuscular Hemoglobin 32 pg (25-35) Mean Corpuscular Hemoglobin Concent 33 g/dL (31-37) Red Cell Distribution Width 14.8 % (11.5-14.5) Platelet Count 113 x10^3/uL (140-400) Neutrophils (%) (Auto) 77 % (31-73) Lymphocytes (%) (Auto) 12 % (24-48) Monocytes (%) (Auto) 10 % (0-9) Eosinophils (%) (Auto) 1 % (0-3) Basophils (%) (Auto) 0 % (0-3) Neutrophils # (Auto) 6.7 x10^3uL (1.8-7.7) Lymphocytes # (Auto) 1.1 x10^3/uL (1.0-4.8) Monocytes # (Auto) 0.8 x10^3/uL (0.0-1.1) Eosinophils # (Auto) 0.1 x10^3/uL (0.0-0.7) Basophils # (Auto) 0.0 x10^3/uL (0.0-0.2) Prothrombin Time 33.5 SEC (11.7-14.0) Prothromb Time International Ratio 3.3 (0.8-1.1) Laboratory Tests Test 09/10/18 04:05 White Blood Count 8.7 x10^3/uL (4.0-11.0) Red Blood Count 3.19 x10^6/uL (4.30-5.70) Hemoglobin 10.1 g/dL (13.0-17.5) Hematocrit 30.6 % (39.0-53.0) Mean Corpuscular Volume 96 fL (79-100) Mean Corpuscular Hemoglobin 32 pg (25-35) Mean Corpuscular Hemoglobin Concent 33 g/dL (31-37) Red Cell Distribution Width 14.8 % (11.5-14.5) Platelet Count 113 x10^3/uL (140-400) Neutrophils (%) (Auto) 77 % (31-73) Lymphocytes (%) (Auto) 12 % (24-48) Monocytes (%) (Auto) 10 % (0-9) Eosinophils (%) (Auto) 1 % (0-3) Basophils (%) (Auto) 0 % (0-3) Neutrophils # (Auto) 6.7 x10^3uL (1.8-7.7) Lymphocytes # (Auto) 1.1 x10^3/uL (1.0-4.8) Monocytes # (Auto) 0.8 x10^3/uL (0.0-1.1) Eosinophils # (Auto) 0.1 x10^3/uL (0.0-0.7) Basophils # (Auto) 0.0 x10^3/uL (0.0-0.2) Prothrombin Time 33.5 SEC (11.7-14.0) Prothromb Time International Ratio 3.3 (0.8-1.1) Medications Active Scripts Medications Dose Route/Sig Max Daily Dose Days Date Category Alprazolam 0.5 Mg Tablet 0.5 Mg PO PRN Q8HRS PRN 09/09/18 Reported Ranitidine Hcl 75 Mg Tablet 75 Mg PO PRN DAILY PRN 09/09/18 Reported Zoloft (Sertraline Hcl) 25 Mg Tablet 1 Tab PO DAILY 09/09/18 Reported Duoneb 0.5-3(2.5) Mg/3 Ml (Albuterol/Ipratropium) 3 Ml Ampul.neb 3 Ml NEB PRN Q4HRS PRN 03/16/18 Reported Miralax (Polyethylene Glycol 3350) 17 Gm Powd.pack 1 Packet PO BID 03/15/18 Reported Ascorbic Acid 500 Mg Tablet 500 Mg PO BID 03/15/18 Reported Super B Complex-Vitamin C (B Complex With Vitamin C) 1 Each Tablet 1 Each PO 12/04/17 Reported Amiodarone Hcl 200 Mg Tablet 100 Mg PO DAILY 06/10/17 Reported Metoprolol Succinate ( Xl ) (Metoprolol Succinate) 25 Mg Tab.er.24h 1 Tab PO QPM 11/13/16 Reported Calcitriol 0.25 Mcg Capsule 0.25 Mcg PO QMTUWTH 05/24/16 Reported Warfarin Sodium 5 Mg Tablet 7.5 Mg PO DAILY 05/24/16 Reported Loratadine 10 Mg Tablet 10 Mg PO QHS 10/16/14 Reported Tamsulosin Hcl 0.4 Mg Cap.er.24h 0.4 Mg PO QHS 10/16/14 Reported Atorvastatin Calcium 10 Mg Tablet 10 Mg PO HS 10/16/14 Reported Flonase (Fluticasone Propionate) 16 Gm [place].susp 2 [place] NS BID 01/06/14 Reported Impression . IMPRESSION: 1. Acute respiratory failure. 2. Acute exacerbation of chronic obstructive pulmonary disease. 3. Demand ischemia non-ST segment elevation myocardial infarction. 4. Obstructive sleep apnea. 5. Secondary pulmonary hypertension. Plan . OK TO D/C FOLLOW UP IN OFFICE IN NOVEMBER SOONER IF NEEDED 1. Respiratory symptoms have improved, though I think most of the patient's symptoms were related to acute exacerbation of COPD. 2. Follow Cardiology input. 3. No further workup needed. 4. A 6-minute walk prior to discharge. DEENA PEARCE MD Sep 10, 2018 10:18
[2018-09-10 11:14] LABS: ALBUMIN 2.7 g/dL (3.4-5.0); CALCIUM 10.5 mg/dL (8.5-10.1); CREATININE 1.7 mg/dL (0.7-1.3); GFR 39.3; PHOSPHORUS 3.4 mg/dL (2.6-4.7); POTASSIUM 4.8 mmol/L (3.5-5.1)
[2018-09-10 11:20] VITALS: BP 96/54
--- NOTE | 2018-09-10 11:59 | PDOC3 ---
Discharge Summary Visit Information Date of Admission: Sep 08, 2018 Date of Discharge: Sep 10, 2018 Admitting Diagnosis: Shortness of breath Final Diagnosis Problems Medical Problems: (1) CHF exacerbation Status: Acute (2) COPD with exacerbation Status: Acute Brief Hospital Course Allergies Allergies Coded Allergies Type Severity Reaction Last Updated Verified No Known Drug Allergies 02/05/18 No Vital Signs Vital Signs Date Time Temp Pulse Resp B/P (MAP) Pulse Ox O2 Delivery O2 Flow Rate FiO2 09/10/18 11:20 97.5 68 18 96/54 (68) 90 Nasal Cannula 2.0 97.5 Lab Results Laboratory Tests Test 09/08/18 15:15 09/08/18 17:57 09/09/18 03:20 09/09/18 03:25 White Blood Count 11.1 x10^3/uL (4.0-11.0) 6.7 x10^3/uL (4.0-11.0) Red Blood Count 3.45 x10^6/uL (4.30-5.70) 3.30 x10^6/uL (4.30-5.70) Hemoglobin 10.9 g/dL (13.0-17.5) 10.5 g/dL (13.0-17.5) Hematocrit 33.3 % (39.0-53.0) 31.7 % (39.0-53.0) Mean Corpuscular Volume 96 fL (79-100) 96 fL (79-100) Mean Corpuscular Hemoglobin 32 pg (25-35) 32 pg (25-35) Mean Corpuscular Hemoglobin Concent 33 g/dL (31-37) 33 g/dL (31-37) Red Cell Distribution Width 14.9 % (11.5-14.5) 14.7 % (11.5-14.5) Platelet Count 114 x10^3/uL (140-400) 107 x10^3/uL (140-400) Neutrophils (%) (Auto) 80 % (31-73) 92 % (31-73) Lymphocytes (%) (Auto) 9 % (24-48) 6 % (24-48) Monocytes (%) (Auto) 9 % (0-9) 3 % (0-9) Eosinophils (%) (Auto) 1 % (0-3) 0 % (0-3) Basophils (%) (Auto) 1 % (0-3) 0 % (0-3) Neutrophils # (Auto) 8.9 x10^3uL (1.8-7.7) 6.1 x10^3uL (1.8-7.7) Lymphocytes # (Auto) 1.0 x10^3/uL (1.0-4.8) 0.4 x10^3/uL (1.0-4.8) Monocytes # (Auto) 1.0 x10^3/uL (0.0-1.1) 0.2 x10^3/uL (0.0-1.1) Eosinophils # (Auto) 0.1 x10^3/uL (0.0-0.7) 0.0 x10^3/uL (0.0-0.7) Basophils # (Auto) 0.1 x10^3/uL (0.0-0.2) 0.0 x10^3/uL (0.0-0.2) Prothrombin Time 34.0 SEC (11.7-14.0) 34.3 SEC (11.7-14.0) Prothromb Time International Ratio 3.4 (0.8-1.1) 3.4 (0.8-1.1) D-Dimer (Yanelis) 0.70 ug/mlFEU (0.00-0.50) Sodium Level 142 mmol/L (136-145) 140 mmol/L (136-145) Potassium Level 4.7 mmol/L (3.5-5.1) 5.1 mmol/L (3.5-5.1) Chloride Level 107 mmol/L (98-107) 105 mmol/L (98-107) Carbon Dioxide Level 28 mmol/L (21-32) 26 mmol/L (21-32) Anion Gap 7 (6-14) 9 (6-14) Blood Urea Nitrogen 44 mg/dL (8-26) 47 mg/dL (8-26) Creatinine 1.6 mg/dL (0.7-1.3) 1.6 mg/dL (0.7-1.3) Estimated GFR (Cockcroft-Gault) 42.1 42.1 BUN/Creatinine Ratio 28 (6-20) Glucose Level 114 mg/dL (70-99) 150 mg/dL (70-99) Calcium Level 10.8 mg/dL (8.5-10.1) 10.6 mg/dL (8.5-10.1) Total Bilirubin 1.4 mg/dL (0.2-1.0) Aspartate Amino Transf (AST/SGOT) 25 U/L (15-37) Alanine Aminotransferase (ALT/SGPT) 36 U/L (16-63) Alkaline Phosphatase 78 U/L (46-116) Creatine Kinase 57 U/L (39-308) Creatine Kinase MB (Mass) 1.7 ng/mL (0.0-3.6) Creatine Kinase MB Relative Index % (0-4) Troponin I Quantitative 0.101 ng/mL (0.000-0.055) 0.079 ng/mL (0.000-0.055) NI-Hth-Y-Type Natriuretic Peptide 2122 pg/mL (0-449) Total Protein 6.7 g/dL (6.4-8.2) Albumin 3.0 g/dL (3.4-5.0) 2.8 g/dL (3.4-5.0) Albumin/Globulin Ratio 0.8 (1.0-1.7) Urine Color Yellow Urine Clarity Clear Urine pH 5.0 Urine Specific [place] 1.020 Urine Protein Negative mg/dL (NEG-TRACE) Urine Glucose (UA) Negative mg/dL (NEG) Urine Ketones (Stick) Negative mg/dL (NEG) Urine Blood Negative (NEG) Urine Nitrite Negative (NEG) Urine Bilirubin Negative (NEG) Urine Urobilinogen Dipstick 0.2 mg/dL (0.2 mg/dL) Urine Leukocyte Esterase Negative (NEG) Urine RBC 0 /HPF (0-2) Urine WBC 1-4 /HPF (0-4) Urine Squamous Epithelial Cells Occ /LPF Urine Bacteria 0 /HPF (0-FEW) Urine Mucus Mod /LPF Segmented Neutrophils % 94 % (35-66) Lymphocytes % 5 % (24-48) Monocytes % 1 % (0-10) Platelet Estimate Adequate (ADEQUATE) Large Platelets Occ Phosphorus Level 2.7 mg/dL (2.6-4.7) Triglycerides Level 41 mg/dL (0-150) Cholesterol Level 143 mg/dL (0-200) LDL Cholesterol, Calculated 74 mg/dL (0-100) VLDL Cholesterol, Calculated 8 mg/dL (0-40) Non-HDL Cholesterol Calculated 82 mg/dL (0-129) HDL Cholesterol 61 mg/dL (40-60) Cholesterol/HDL Ratio 2.3 Procalcitonin < 0.10 ng/mL (0.00-0.10) Test 09/10/18 04:05 White Blood Count 8.7 x10^3/uL (4.0-11.0) Red Blood Count 3.19 x10^6/uL (4.30-5.70) Hemoglobin 10.1 g/dL (13.0-17.5) Hematocrit 30.6 % (39.0-53.0) Mean Corpuscular Volume 96 fL (79-100) Mean Corpuscular Hemoglobin 32 pg (25-35) Mean Corpuscular Hemoglobin Concent 33 g/dL (31-37) Red Cell Distribution Width 14.8 % (11.5-14.5) Platelet Count 113 x10^3/uL (140-400) Neutrophils (%) (Auto) 77 % (31-73) Lymphocytes (%) (Auto) 12 % (24-48) Monocytes (%) (Auto) 10 % (0-9) Eosinophils (%) (Auto) 1 % (0-3) Basophils (%) (Auto) 0 % (0-3) Neutrophils # (Auto) 6.7 x10^3uL (1.8-7.7) Lymphocytes # (Auto) 1.1 x10^3/uL (1.0-4.8) Monocytes # (Auto) 0.8 x10^3/uL (0.0-1.1) Eosinophils # (Auto) 0.1 x10^3/uL (0.0-0.7) Basophils # (Auto) 0.0 x10^3/uL (0.0-0.2) Prothrombin Time 33.5 SEC (11.7-14.0) Prothromb Time International Ratio 3.3 (0.8-1.1) Sodium Level 142 mmol/L (136-145) Potassium Level 4.8 mmol/L (3.5-5.1) Chloride Level 108 mmol/L (98-107) Carbon Dioxide Level 29 mmol/L (21-32) Anion Gap 5 (6-14) Blood Urea Nitrogen 51 mg/dL (8-26) Creatinine 1.7 mg/dL (0.7-1.3) Estimated GFR (Cockcroft-Gault) 39.3 Glucose Level 90 mg/dL (70-99) Calcium Level 10.5 mg/dL (8.5-10.1) Phosphorus Level 3.4 mg/dL (2.6-4.7) Albumin 2.7 g/dL (3.4-5.0) Laboratory Tests Test 09/10/18 04:05 White Blood Count 8.7 x10^3/uL (4.0-11.0) Red Blood Count 3.19 x10^6/uL (4.30-5.70) Hemoglobin 10.1 g/dL (13.0-17.5) Hematocrit 30.6 % (39.0-53.0) Mean Corpuscular Volume 96 fL (79-100) Mean Corpuscular Hemoglobin 32 pg (25-35) Mean Corpuscular Hemoglobin Concent 33 g/dL (31-37) Red Cell Distribution Width 14.8 % (11.5-14.5) Platelet Count 113 x10^3/uL (140-400) Neutrophils (%) (Auto) 77 % (31-73) Lymphocytes (%) (Auto) 12 % (24-48) Monocytes (%) (Auto) 10 % (0-9) Eosinophils (%) (Auto) 1 % (0-3) Basophils (%) (Auto) 0 % (0-3) Neutrophils # (Auto) 6.7 x10^3uL (1.8-7.7) Lymphocytes # (Auto) 1.1 x10^3/uL (1.0-4.8) Monocytes # (Auto) 0.8 x10^3/uL (0.0-1.1) Eosinophils # (Auto) 0.1 x10^3/uL (0.0-0.7) Basophils # (Auto) 0.0 x10^3/uL (0.0-0.2) Prothrombin Time 33.5 SEC (11.7-14.0) Prothromb Time International Ratio 3.3 (0.8-1.1) Sodium Level 142 mmol/L (136-145) Potassium Level 4.8 mmol/L (3.5-5.1) Chloride Level 108 mmol/L (98-107) Carbon Dioxide Level 29 mmol/L (21-32) Anion Gap 5 (6-14) Blood Urea Nitrogen 51 mg/dL (8-26) Creatinine 1.7 mg/dL (0.7-1.3) Estimated GFR (Cockcroft-Gault) 39.3 Glucose Level 90 mg/dL (70-99) Calcium Level 10.5 mg/dL (8.5-10.1) Phosphorus Level 3.4 mg/dL (2.6-4.7) Albumin 2.7 g/dL (3.4-5.0) Brief Hospital Course Mr Quintero is a 78yo m w/ PMHx CHF, afib, PPM, CAD, HTN, COPD who presents with shortness of breath at home for the past 3-5 days and decrease in O2 sats with activity into the 80s and upper 70s on his home pulse oximetry, was also hypoxic 84-88% in the ED, placed on O2. Unclear if weight gain, he states he thinks he actually lost a pound in the past week; feet/legs not much more edematous recently. NT-proBNP of 2121 with Cr of 1.6 and troponin I of 0.101. CXR with cardiomegaly. Mildly anemic. Calcium 10.8 He was initially treated for very mild CHF exacerbation, but ultimately improved with aggressive treatment of COPD exacerbation under assistance from cardiology, pulmonology and seen by nephrology for his h/o CKD. He improved after 3 days of treatment and will be able to go home with his same medication regimen and follow up with all three above specialties. 6 minute walk does not show significant desaturations, he can continue his home O2 prn for h/o COPD with cor pulmonale A/P: Acute Hypoxia - with significant desaturations, will check INR, d dimer positive , will check VQ scan, consult pulmonology. This does not appear to be a severe CHF exacerbation, but likely a mild one. 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 Ejection fraction of 50-55% on most recent echocardiogram. will start IV diuresis. Defer to cardiology on further diuresis with monitoring of renal function. Paroxysmal atrial fibrillation - currently irregular on monitor. Treated with amiodarone and anticoagulation. Continue telemetry. Continue present treatment. Sick sinus syndrome and permanent pacemaker - appears to be capturing on monitor. Will monitor Hyperlipidemia - Continue medical treatment CKD - Cr 1.6, does not seem to have current JAYDON. Consulted nephrology Hypercalcemia - 10.8. Is on cincacalcet, consulted nephrology FEN - Cardiac diet, 2L fluid restriction PPX - on warfarin, check INR FULL CODE Inpatient for acute hypoxia for d/c today, greater than 30 minutes spent on discharge including medications and 6 minute walk testing Discharge Information Condition at Discharge: Improved Follow Up: Weeks (2) Disposition/Orders: D/C to Home Scheduled Amiodarone Hcl (Amiodarone Hcl) 200 Mg Tablet, 100 MG PO DAILY, (Reported) Entered as Reported by: Ti Mata on 06/10/17 0017 Last Action: Continued on 09/08/181739 by KAREEM HARRIS MD Ascorbic Acid (Ascorbic Acid) 500 Mg Tablet, 500 MG PO BID, (Reported) Entered as Reported by: Juan Mckeon on 03/15/18 1702 Last Action: Continued on 09/08/181739 by KAREEM HARRIS MD Atorvastatin Calcium (Atorvastatin Calcium) 10 Mg Tablet, 10 MG PO HS for FOR CHOLESTEROL, #30 Ref 0 (Reported) Entered as Reported by: Lynnette Angeles on 10/16/141132 Last Action: Continued on 09/08/181739 by KAREEM HARRIS MD Calcitriol (Calcitriol) 0.25 Mcg Capsule, 0.25 MCG PO QMTUWTH for supplement, ( Reported) Entered as Reported by: YOVANI MOLINA on 05/24/16 2310 Last Action: Edited on 09/09/18 0949 by CHARITY RAO Fluticasone Propionate (Flonase) 16 Gm [place].susp, 2 SPRAY NS BID, (Reported) Entered as Reported by: CHAVA SMALL on 01/06/14 2253 Last Action: Continued on 09/08/181739 by KAREEM HARRIS MD Loratadine (Loratadine) 10 Mg Tablet, 10 MG PO QHS, (Reported) Entered as Reported by: Lynnette Angeles on 10/16/14 113 Last Action: Converted on 09/08/181739 by KAREEM HARRIS MD Metoprolol Succinate (Metoprolol Succinate ( Xl )) 25 Mg Tab.er.24h, 1 TAB PO QPM, #30 Ref 5 (Reported) Entered as Reported by: SHERRY ALONSO on 11/13/16 0857 Last Action: Continued on 09/08/181739 by KAREEM HARRIS MD Polyethylene Glycol 3350 (Miralax) 17 Gm Pow[place].pack, 1 PACKET PO BID, #30 Ref 3 ( Reported) Entered as Reported by: Doug Santos on 03/15/182032 Last Action: Converted on 09/08/181739 by KAREEM HARRIS MD Sertraline Hcl (Zoloft) 25 Mg Tablet, 1 TAB PO DAILY for depression, #30 Ref 2 ( Reported) Entered as Reported by: CHARITY RAO on 09/09/18948 Last Action: New Order on 09/09/18948 by CHARITY RAO Tamsulosin Hcl (Tamsulosin Hcl) 0.4 Mg Cap.er.24h, 0.4 MG PO QHS, (Reported) Entered as Reported by: Lynnette Angeles on 10/16/14 1133 Last Action: Continued on 09/08/181739 by KAREEM HARRIS MD Warfarin Sodium (Warfarin Sodium) 5 Mg Tablet, 7.5 MG PO DAILY for afib, ( Reported) Entered as Reported by: YOVANI MOLINA on 05/24/16 2310 Last Action: Edited on 09/09/18948 by CHARITY RAO Scheduled PRN Alprazolam (Alprazolam) 0.5 Mg Tablet, 0.5 MG PO PRN Q8HRS PRN for ANXIETY / AGITATION, Ref 0 (Reported) Entered as Reported by: CHARITY RAO on 09/09/18948 Last Action: New Order on 09/09/18948 by CHARITY RAO Ipratropium/Albuterol Sulfate (Duoneb 0.5-3(2.5) Mg/3 Ml) 3 Ml Ampul.neb, 3 ML NEB PRN Q4HRS PRN for SHORTNESS OF BREATH, (Reported) Entered as Reported by: Juan Mckeon on 03/16/18 0800 Last Action: Edited on 09/09/18948 by CHARITY RAO Ranitidine Hcl (Ranitidine Hcl) 75 Mg Tablet, 75 MG PO PRN DAILY PRN for GI SYMPTOMS, (Reported) Entered as Reported by: CHARITY RAO on 09/09/18948 Last Action: New Order on 09/09/18948 by CHARITY RAO Miscellaneous Medications B Complex With Vitamin C (Super B Complex-Vitamin C) 1 Each Tablet, 1 EACH PO, ( Reported) Entered as Reported by: SHERRY WOODSON on 12/04/171946 KAREEM HARRIS MD Sep 10, 2018 11:59
--- NOTE | 2018-09-10 12:53 | PDOC ---
SUBJECTIVE ROS No complaints OBJECTIVE Vital Signs Vital Signs Date Time Temp Pulse Resp B/P (MAP) Pulse Ox O2 Delivery O2 Flow Rate FiO2 09/10/18 11:44 92 Room Air 09/10/18 11:20 97.5 68 18 96/54 (68) 2.0 97.5 I & 0 Intake and Output 09/10/18 06:59 Intake Total 1420 ml Output Total 2525 ml Balance -1105 ml Intake Oral 1420 ml Output Urine Total 2525 ml PHYSICAL EXAM Physical Exam General: Alert, Oriented X3, Cooperative, No acute distress HEENT: Atraumatic, PERRLA, EOMI, Mucous membr. moist/pink Lungs: Other (Bibasilar crackles, scattered wheezes) Abdomen: Normal bowel sounds, Soft, No tenderness, No hepatosplenomegaly, No masses Extremities: No clubbing, No cyanosis, Normal pulses, No tenderness/swelling, Other (Scant edema) Skin: No rashes, No breakdown, No significant lesion Neuro: Normal gait, Normal speech, Strength at 5/5 X4 ext, Normal tone, Sensation intact, Cranial nerves 3-12 NL, Reflexes 2+ DIAGNOSIS/ASSESSMENT Assessment & Plan CKD STAGE 3 - Stable renal function E-Lytes stable , UA unremarkable Follows with me , has FU appt Acute Hypoxia - with significant desaturations 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 Ejection fraction of 50-55% on most recent echocardiogram CxR No Pulm edema Paroxysmal atrial fibrillation - currently irregular on monitor. Treated with amiodarone and anticoagulation. Sick sinus syndrome and permanent pacemaker - appears to be capturing on monitor. Will monitor Hypercalcemia - Mild,has sec Hyperparathyroidism Is on cinacalcet COMMENT/RELEVANT DATA Meds Current Medications Medications (Trade) Dose Ordered Sig/Patricia Start Time Stop Time Status Last Admin Dose Admin Acetaminophen (Tylenol) 650 mg PRN Q6HRS PRN 09/08/18 17:45 Albuterol/ Ipratropium (Duoneb) 3 ml QID 09/08/18 21:00 09/10/18 11:45 3 ML Amiodarone HCl (Cordarone) 100 mg DAILY 09/09/18 09:00 09/10/18 08:14 100 MG Ascorbic Acid (Vitamin C) 500 mg BID 09/08/18 21:00 09/10/18 08:14 500 MG Atorvastatin Calcium (Lipitor) 10 mg HS 09/08/18 21:00 09/09/18 22:09 10 MG Calcitriol (Rocaltrol) 0.25 mcg MoWeFr 09/10/18 09:00 09/10/18 08:14 0.25 MCG Cetirizine HCl (ZyrTEC) 10 mg QHS 09/08/18 21:00 09/09/18 22:09 10 MG Ferrous Sulfate (Feosol) 325 mg BIDWMEALS 09/08/18 18:15 09/10/18 08:13 325 MG Fluticasone Propionate (Flonase) 1 spray BID 09/08/18 21:00 09/09/18 22:10 1 SPRAY Furosemide (Lasix) 20 mg 1X ONCE 09/08/18 17:45 09/08/18 18:17 DC 09/08/18 19:40 20 MG Heparin Sodium (Porcine) (Heparin Sodium) 5,000 unit Q8HRS 09/08/18 18:00 09/08/18 22:17 DC Lactulose (Lactulose) 20 gm PRN Q12HR PRN 09/08/18 17:45 Lorazepam (Ativan) 0.25 mg PRN BID PRN 09/08/18 20:30 09/09/18 22:09 0.25 MG Methylprednisolone Sodium Succinate (SOLU-Medrol 125MG VIAL) 125 mg 1X ONCE 09/08/18 14:30 09/08/18 14:31 DC 09/08/18 15:27 125 MG Metoprolol Succinate (Toprol Xl) 25 mg QPM 09/08/18 18:00 09/09/18 17:46 25 MG Ondansetron HCl (Zofran) 4 mg PRN Q6HRS PRN 09/08/18 17:45 Polyethylene Glycol (miraLAX PACKET) 17 gm BID 09/08/18 21:00 09/10/18 08:15 17 GM Senna/Docusate Sodium (Senna Plus) 1 tab BID 09/08/18 21:00 09/10/18 08:14 1 TAB Tamsulosin HCl (Flomax) 0.4 mg QHS 09/08/18 21:00 09/09/18 22:09 0.4 MG Warfarin Sodium (Coumadin Per Physician) 1 each PRN DAILY PRN 09/08/18 18:30 09/10/18 11:14 1 EACH Warfarin Sodium (Coumadin) 7.5 mg Oseas@1600 09/11/18 16:00 Lab Laboratory Tests Test 09/10/18 04:05 White Blood Count 8.7 x10^3/uL (4.0-11.0) Red Blood Count 3.19 x10^6/uL (4.30-5.70) Hemoglobin 10.1 g/dL (13.0-17.5) Hematocrit 30.6 % (39.0-53.0) Mean Corpuscular Volume 96 fL (79-100) Mean Corpuscular Hemoglobin 32 pg (25-35) Mean Corpuscular Hemoglobin Concent 33 g/dL (31-37) Red Cell Distribution Width 14.8 % (11.5-14.5) Platelet Count 113 x10^3/uL (140-400) Neutrophils (%) (Auto) 77 % (31-73) Lymphocytes (%) (Auto) 12 % (24-48) Monocytes (%) (Auto) 10 % (0-9) Eosinophils (%) (Auto) 1 % (0-3) Basophils (%) (Auto) 0 % (0-3) Neutrophils # (Auto) 6.7 x10^3uL (1.8-7.7) Lymphocytes # (Auto) 1.1 x10^3/uL (1.0-4.8) Monocytes # (Auto) 0.8 x10^3/uL (0.0-1.1) Eosinophils # (Auto) 0.1 x10^3/uL (0.0-0.7) Basophils # (Auto) 0.0 x10^3/uL (0.0-0.2) Prothrombin Time 33.5 SEC (11.7-14.0) Prothromb Time International Ratio 3.3 (0.8-1.1) Sodium Level 142 mmol/L (136-145) Potassium Level 4.8 mmol/L (3.5-5.1) Chloride Level 108 mmol/L (98-107) Carbon Dioxide Level 29 mmol/L (21-32) Anion Gap 5 (6-14) Blood Urea Nitrogen 51 mg/dL (8-26) Creatinine 1.7 mg/dL (0.7-1.3) Estimated GFR (Cockcroft-Gault) 39.3 Glucose Level 90 mg/dL (70-99) Calcium Level 10.5 mg/dL (8.5-10.1) Phosphorus Level 3.4 mg/dL (2.6-4.7) Albumin 2.7 g/dL (3.4-5.0) Results All relevant outside records, renal labs, imaging studies, telemetry/EKG's were reviewed. KIERSTEN BRODERICK MD Sep 10, 2018 12:53
[2018-09-11] MEDS ORDERED: WARFARIN 7.5 MG TABLET. PO SCH (16:00)
[2018-09-13] MEDS ORDERED: WARFARIN 5 MG TABLET. PO SCH (16:00)
== END 2018-09-10 14:15 | disposition home or self-care (01) | DRG 189 ==
LOC: ER 13:58 → 2 SOUTH 17:14
PROVIDERS: ADMIT Internal Medicine; ATTEND Internal Medicine
DX: J96.21 Acute and chronic respiratory failure with hypoxia (principal); I21.A1 Myocardial infarction type 2; I50.43 Acute on chronic combined systolic (congestive) and diastolic (congestive) heart failure; I13.0 Hypertensive heart and chronic kidney disease with heart failure and stage 1 through stage 4 chronic kidney disease, or unspecified chronic kidney disease; I42.9 Cardiomyopathy, unspecified; J44.1 Chronic obstructive pulmonary disease with (acute) exacerbation; D64.9 Anemia, unspecified; D69.6 Thrombocytopenia, unspecified; E78.5 Hyperlipidemia, unspecified; E83.52 Hypercalcemia; G47.33 Obstructive sleep apnea (adult) (pediatric); I25.10 Atherosclerotic heart disease of native coronary artery without angina pectoris; I27.29 Other secondary pulmonary hypertension; I48.0 Paroxysmal atrial fibrillation; I48.2 Chronic atrial fibrillation; M19.90 Unspecified osteoarthritis, unspecified site; F32.9 Major depressive disorder, single episode, unspecified; F41.9 Anxiety disorder, unspecified; N18.9 Chronic kidney disease, unspecified; Z87.891 Personal history of nicotine dependence; Z90.49 Acquired absence of other specified parts of digestive tract; Z95.0 Presence of cardiac pacemaker; Z99.81 Dependence on supplemental oxygen; Z87.01 Personal history of pneumonia (recurrent)
CPT/HCPCS: 36415; 71045; 78582; 80053; 80061; 80069; 81001; 82550; 82553; 83880; 84145; 84484; 85007; 85025; 85379; 85610; 93005; 93306; 94618; 94640; 96374; A9540; A9558; J1940; J2930; J7620; 99285-25

== ENCOUNTER → 2018-11-09 | Outpatient (CLI) | payer MEDICARE, OTHER ==
[~2018-11-09] MED LIST changes: +ALPR0.5T PO; +ALPR0.5T6 PO; +DOXY100C2 PO; +POLY119P4 PO; +POTA10TA12 PO; +PRED20TA PO; +RANI-348 PO; +SERT25TA PO
[2018-11-09 15:14] LABS: BASO # 0.1 x10^3/uL (0.0-0.2); BASO % 1 % (0-3); EOS # 0.2 x10^3/uL (0.0-0.7); EOS % 3 % (0-3); HEMATOCRIT 34.2 % (39.0-53.0); LYMPH # 1.1 x10^3/uL (1.0-4.8); LYMPH % 17 % (24-48); MEAN CORPUSCULAR HEMOGLOBIN 31 pg (25-35); MEAN CORPUSCULAR HGB CONC 32 g/dL (31-37); MEAN CORPUSCULAR VOLUME 98 fL (79-100); MONO # 0.7 x10^3/uL (0.0-1.1); MONO % 11 % (0-9); NEUT # 4.3 x10^3uL (1.8-7.7); NEUT % 67 % (31-73); PLATELET COUNT 135 x10^3/uL (140-400); RED CELL DISTRIBUTION WIDTH 15.6 % (11.5-14.5); WHITE BLOOD COUNT 6.4 x10^3/uL (4.0-11.0)
[2018-11-09 15:25] LABS: CALCIUM 10.8 mg/dL (8.5-10.1); CREATININE 1.7 mg/dL (0.7-1.3); GFR 39.3; MAGNESIUM 1.9 mg/dL (1.8-2.4)
== END | disposition home or self-care (01) ==
LOC: LAB 14:28
PROVIDERS: ATTEND Internal Medicine Cardiovascular Disease
DX: I10 Essential (primary) hypertension (principal); E78.5 Hyperlipidemia, unspecified; I25.10 Atherosclerotic heart disease of native coronary artery without angina pectoris
CPT/HCPCS: 36415; 80048; 83735; 85025

== ENCOUNTER → 2018-11-22 | Outpatient (CLI) | payer MEDICARE, OTHER ==
--- NOTE | 2018-11-22 11:53 | CARD ---
MR#: [id number] Date of Study: 11/22/2018 Ordering Physician: BALAJI GARCIA, Referring Physician: BALAJI GARCIA, Tech: Yeni Fontanez YASH APPROVED REPORT EXAM: Two-dimensional and M-mode echocardiogram with Doppler and color Doppler. Other Information Quality : Fair INDICATION COPD Hypertension/HCVD Surgery/Intervention Pacemaker: 2D DIMENSIONS RVDd3.2 (2.9-3.5cm)Left Atrium(2D)4.4 (1.6-4.0cm) IVSd1.3 (0.7-1.1cm)Aortic Root(2D)3.6 (2.0-3.7cm) LVDd5.7 (3.9-5.9cm)LVOT Diameter2.5 (1.8-2.4cm) PWd1.2 (0.7-1.1cm)LVDs4.9 (2.5-4.0cm) FS (%) 14.1 %SV47.9 ml Aortic Valve AoV Peak Dilip.169.0cm/sAoV VTI33.6cm AO Peak GR.11.4mmHgLVOT Peak Dilip.103.5cm/s AO Mean GR.6mmHgAVA (VMAX)2.96cm2 Mitral Valve MV E Jvdwclbk148.5cm/sMV DECEL [id number] MV A Yglihkgs71.6cm/sE/A Ratio1.1 Tricuspid Valve TR P. Nnybudqj237pc/sRAP [id number] TR Peak Gr.32mcYlYUIN46chTk Pulmonary Vein S1 Htcfknsx98.3cm/sD2 Fhlioskl48.8cm/s LEFT VENTRICLE The left ventricle is normal size. There is mild concentric left ventricular hypertrophy. Left ventri ashtyn systolic function is normal. The Ejection Fraction is 50-55%. Apical motion consistent with pacem dorota activation. RIGHT VENTRICLE The right ventricle is normal size. The right ventricular systolic function is normal. There is a pac emaker lead in the right ventricle. ATRIA The left atrium is mildly dilated. The right atrium is mildly dilated. The interatrial septum is inta ct with no evidence for an atrial septal defect or patent foramen ovale as noted on 2-D or Doppler im aging. AORTIC VALVE The aortic valve is calcified but opens well. Doppler and Color Flow revealed no significant aortic r egurgitation. There is no significant aortic valvular stenosis. MITRAL VALVE The mitral valve is calcified but opens well. There is no evidence of mitral valve prolapse. There is no mitral valve stenosis. Doppler and Color-flow revealed mild mitral regurgitation. TRICUSPID VALVE The tricuspid valve is normal in structure and function. Doppler and Color Flow revealed mild tricusp id regurgitation. There is moderate-severe pulmonary hypertension. The PA pressure was estimated at 6 6 mmHg. There is no tricuspid valve stenosis. PULMONIC VALVE The pulmonic valve is not well visualized. Doppler and Color Flow revealed mild pulmonic valvular reg urgitation. There is no pulmonic valvular stenosis. GREAT VESSELS The aortic root is normal in size. The ascending aorta is mildly dilated at 3.5 cm. The IVC is dilate d and collapses >50% with inspiration. PERICARDIAL EFFUSION There is no evidence of significant pericardial effusion. Critical Notification Critical Value: No <Conclusion> Left ventricle systolic function is normal. The Ejection Fraction is 50-55%. Apical motion consistent with pacemaker activation. There is a pacemaker lead in the right ventricle. Mild mitral regurgitation. Mild tricuspid regurgitation. The PA pressure was estimated at 66 mmHg. There is no evidence of significant pericardial effusion. Signed by : Maurilio Fermin, Electronically Approved : 11/22/2018 11:52:58
== END | disposition home or self-care (01) ==
LOC: ECHO 10:13
PROVIDERS: ATTEND Internal Medicine Cardiovascular Disease
DX: I08.8 Other rheumatic multiple valve diseases (principal); I27.20 Pulmonary hypertension, unspecified; I11.9 Hypertensive heart disease without heart failure; J44.9 Chronic obstructive pulmonary disease, unspecified; Z95.0 Presence of cardiac pacemaker
CPT/HCPCS: 93306

== ENCOUNTER 2018-12-06 08:13 | Inpatient (IN) | payer MEDICARE, OTHER ==
[~2018-12-06] VITALS: Ht 193 cm; Wt 104.1 kg
[~2018-12-06 08:13] MED LIST changes: -ALPR0.5T PO; -DOXY100C2 PO; -POLY119P4 PO; -POTA10TA12 PO; -PRED20TA PO
[2018-12-06] MEDS ORDERED: methylPREDNISolone SOD SUCC PF 125 MG/2 ML VIAL. IV ONE (08:30)
[2018-12-06] MEDS ORDERED: IPRATRPIUM/ALBUTEROL 0.5/2.5MG 3 ML NEBU. NEB ONE (08:30)
--- NOTE | 2018-12-06 08:34 | PHYS DOC ---
Past Medical History Past Medical History: A-Fib, CHF, COPD, Hypertension, Renal Disease, Renal Failure, Other Additional Past Medical Histor: SEASONAL ALLERGIES Past Surgical History: Cholecystectomy, Pacemaker, Tonsillectomy Additional Past Surgical Histo: metal in R. hand/ finger,2 stents in left leg,STONES REMOVED FROM LIVER Smoking: Quit Greater Than 1 Year Alcohol Use: Rarely Drug Use: None Adult General Chief Complaint Chief Complaint: SHORTNESS OF BREATH HPI HPI Patient is a 78 year old male presents with shortness breath has been ongoing f or several days. The patient spent the weekend outside [facility] and this is when shortness of breath started. The patient is on 2 L oxygen at home at baseline with a history of COPD. States he has associated symptoms of a cough. Denies fever. Reports brown sputum. Woke up this morning and states it was worse that has been. No interventions tried at home. Denies pain. Had 02 saturations of 86% on arrival to ED. Review of Systems Review of Systems Constitutional: Denies fever or chills [] Eyes: Denies change in visual acuity, redness, or eye pain [] HENT: Denies nasal congestion or sore throat [] Respiratory: Reports cough and shortness of breath [] Cardiovascular: No additional information not addressed in HPI [] GI: Denies abdominal pain, nausea, vomiting, bloody stools or diarrhea [] : Denies dysuria or hematuria [] Musculoskeletal: Denies back pain or joint pain [] Integument: Denies rash or skin lesions [] Neurologic: Denies headache, focal weakness or sensory changes [] Endocrine: Denies polyuria or polydipsia [] Complete systems were reviewed and found to be within normal limits, except as documented in this note. Current Medications Current Medications Current Medications Medications (Trade) Dose Ordered Sig/Patricia Start Time Stop Time Status Last Admin Dose Admin Albuterol Sulfate (Ventolin Neb Soln) 10 mg 1X ONCE 12/06/18 09:00 12/06/18 09:01 DC 12/06/18 09:54 10 MG Albuterol/ Ipratropium (Duoneb) 3 ml 1X ONCE 12/06/18 08:30 12/06/18 08:31 DC 12/06/18 08:29 3 ML Azithromycin 250 ml @ 250 mls/hr 1X ONCE 12/06/18 09:30 12/06/18 09:57 DC Doxycycline Hyclate 100 mg/ Dextrose 100 ml @ 50 mls/hr 1X ONCE 12/06/18 10:15 12/06/18 12:14 Methylprednisolone Sodium Succinate (SOLU-Medrol 125MG VIAL) 125 mg 1X ONCE 12/06/18 08:30 12/06/18 08:31 DC 12/06/18 09:03 125 MG Allergies Allergies Allergies Coded Allergies Type Severity Reaction Last Updated Verified No Known Drug Allergies 02/05/18 No Physical Exam Physical Exam Constitutional: Well developed, well nourished, acute distress, non-toxic appearance. [] HENT: Normocephalic, atraumatic, bilateral external ears normal, oropharynx moist, no oral exudates, nose normal. [] Eyes: PERRLA, EOMI, conjunctiva normal, no discharge. [] Neck: Normal range of motion, no tenderness, supple, no stridor. [] Cardiovascular:Heart rate regular rhythm, no murmur [] Lungs & Thorax: Bilateral breath sounds diminished throughout all lobes. Patient appears labored in trying to breath. Can speak in 1-2 work phrases. Abdomen: Bowel sounds normal, soft, no tenderness, no masses, no pulsatile masses. [] Skin: Warm, dry, no erythema, no rash. [] Back: No tenderness, no CVA tenderness. [] Extremities: No tenderness, no cyanosis, no clubbing, ROM intact, no edema. [] Neurologic: Alert and oriented X 3, normal motor function, normal sensory function, no focal deficits noted. [] Psychologic: Affect normal, judgement normal, mood normal. [] Current Patient Data Vital Signs Vital Signs Date Time Temp Pulse Resp B/P (MAP) Pulse Ox O2 Delivery O2 Flow Rate FiO2 12/06/18 09:59 98 Nasal Cannula 3.0 12/06/18 09:04 82 20 143/66 (91) 12/06/18 08:16 96.1 96.1 Lab Values Laboratory Tests Test 12/06/18 08:46 White Blood Count 14.7 x10^3/uL (4.0-11.0) H Red Blood Count 3.38 x10^6/uL (4.30-5.70) L Hemoglobin 10.8 g/dL (13.0-17.5) L Hematocrit 32.7 % (39.0-53.0) L Mean Corpuscular Volume 97 fL (79-100) Mean Corpuscular Hemoglobin 32 pg (25-35) Mean Corpuscular Hemoglobin Concent 33 g/dL (31-37) Red Cell Distribution Width 14.8 % (11.5-14.5) H Platelet Count 133 x10^3/uL (140-400) L Neutrophils (%) (Auto) 83 % (31-73) H Lymphocytes (%) (Auto) 6 % (24-48) L Monocytes (%) (Auto) 11 % (0-9) H Eosinophils (%) (Auto) 1 % (0-3) Basophils (%) (Auto) 1 % (0-3) Neutrophils # (Auto) 12.1 x10^3uL (1.8-7.7) H Lymphocytes # (Auto) 0.8 x10^3/uL (1.0-4.8) L Monocytes # (Auto) 1.6 x10^3/uL (0.0-1.1) H Eosinophils # (Auto) 0.1 x10^3/uL (0.0-0.7) Basophils # (Auto) 0.1 x10^3/uL (0.0-0.2) Urine Collection Type Unknown Urine Color Yellow Urine Clarity Clear Urine pH 5.0 Urine Specific [place] 1.010 Urine Protein Negative mg/dL (NEG-TRACE) Urine Glucose (UA) Negative mg/dL (NEG) Urine Ketones (Stick) Negative mg/dL (NEG) Urine Blood Negative (NEG) Urine Nitrite Negative (NEG) Urine Bilirubin Negative (NEG) Urine Urobilinogen Dipstick 0.2 mg/dL (0.2 mg/dL) Urine Leukocyte Esterase Negative (NEG) Urine RBC 0 /HPF (0-2) Urine WBC 0 /HPF (0-4) Urine Squamous Epithelial Cells Few /LPF Urine Bacteria 0 /HPF (0-FEW) Urine Mucus Slight /LPF Sodium Level 142 mmol/L (136-145) Potassium Level 5.1 mmol/L (3.5-5.1) Chloride Level 106 mmol/L (98-107) Carbon Dioxide Level 24 mmol/L (21-32) Anion Gap 12 (6-14) Blood Urea Nitrogen 41 mg/dL (8-26) H Creatinine 1.6 mg/dL (0.7-1.3) H Estimated GFR (Cockcroft-Gault) 42.1 BUN/Creatinine Ratio 26 (6-20) H Glucose Level 114 mg/dL (70-99) H Lactic Acid Level 0.9 mmol/L (0.4-2.0) Calcium Level 10.4 mg/dL (8.5-10.1) H Total Bilirubin 1.8 mg/dL (0.2-1.0) H Aspartate Amino Transferase (AST) 30 U/L (15-37) Alanine Aminotransferase (ALT) 37 U/L (16-63) Alkaline Phosphatase 72 U/L (46-116) Troponin I Quantitative 0.114 ng/mL (0.000-0.055) FA-Bsw-K-Type Natriuretic Peptide 5051 pg/mL (0-449) H Total Protein 6.3 g/dL (6.4-8.2) L Albumin 3.2 g/dL (3.4-5.0) L Albumin/Globulin Ratio 1.0 (1.0-1.7) Laboratory Tests 12/06/18 08:46 Laboratory Tests 12/06/18 08:46 EKG EKG EKG interpreted by Dr. Reid No STEMI, Has Right Bundle Branch Block, Rate of 92. Radiology/Procedures Radiology/Procedures []PATIENT: JOSEP SIMS LACCOUNT: [id number]#: [id number] : 1940 LOCATION: ER AGE: 78 SEX: M EXAM STATUS: REG ER ORD. PHYSICIAN: SUSSY JEFFREY APRN REASON: SHORT OF BREATH PROCEDURE: CHEST PA & LATERAL EXAM: Chest 2 views. HISTORY: Shortness of breath. COMPARISON: 09/08/2018. FINDINGS: Frontal and lateral views of the chest are obtained. A left-sided pacemaker has its leads in the right atrium and right ventricle. Hyperinflation is consistent with chronic obstructive pulmonary disease. There are no confluent infiltrates. There is no pneumothorax or pleural effusion. The heart is not enlarged. There are atherosclerotic calcifications of the aorta. IMPRESSION: 1. Chronic obstructive pulmonary disease. No confluent infiltrates. Course & Med Decision Making Course & Med Decision Making Pertinent Labs and Imaging studies reviewed. (See chart for details) Will order breathing treatment and steroids. Will also get labs, chest x-ray, ekg. Patient is agreeable. Labs show elevated troponin, elevated BNP, kidney function at baseline. Will admit to Dr. Snow and consult pulmonary. Manny Disclaimer Manny Disclaimer This electronic medical record was generated, in whole or in part, using a voice recognition dictation system. Departure Departure Impression: Primary Impression: Acute exacerbation of chronic obstructive airways diseasedisease Additional Impression: CHF exacerbation Disposition: ADMITTED INPATIENT Admitting Physician: MILLER Condition: STABLE Referrals: EVIN BAGLEY MD (PCP) Problem Qualifiers Additional Impression: CHF exacerbation Heart failure type: unspecified Qualified Codes: I50.9 - Heart failure, unspecified SUSSY JEFFREY APRN Dec 06, 2018 08:34
[2018-12-06 08:58] LABS: BASO # 0.1 x10^3/uL (0.0-0.2); BASO % 1 % (0-3); EOS # 0.1 x10^3/uL (0.0-0.7); EOS % 1 % (0-3); HEMATOCRIT 32.7 % (39.0-53.0); HEMOGLOBIN 10.8 g/dL (13.0-17.5); LYMPH # 0.8 x10^3/uL (1.0-4.8); LYMPH % 6 % (24-48); MEAN CORPUSCULAR HEMOGLOBIN 32 pg (25-35); MEAN CORPUSCULAR HGB CONC 33 g/dL (31-37); MEAN CORPUSCULAR VOLUME 97 fL (79-100); MONO # 1.6 x10^3/uL (0.0-1.1); MONO % 11 % (0-9); NEUT # 12.1 x10^3uL (1.8-7.7); NEUT % 83 % (31-73); PLATELET COUNT 133 x10^3/uL (140-400); RED BLOOD COUNT 3.38 x10^6/uL (4.30-5.70); RED CELL DISTRIBUTION WIDTH 14.8 % (11.5-14.5); WHITE BLOOD COUNT 14.7 x10^3/uL (4.0-11.0)
[2018-12-06] MEDS ORDERED: ALBUTEROL SULFATE 2.5 MG/3 ML NEBU. CONT NEB ONE (09:00)
[2018-12-06 09:07] LABS: BILIRUBIN,URINE NEGATIVE (NEG); CLARITY,URINE CLEAR; COLOR,URINE YELLOW; NITRITE,URINE NEGATIVE (NEG); PROTEIN,URINE NEGATIVE (NEG-TRACE); UROBILINOGEN,URINE 0.2 mg/dL (0.2 mg/dL)
--- NOTE | 2018-12-06 09:13 | RAD ---
EXAM: Chest 2 views. HISTORY: Shortness of breath. COMPARISON: 09/08/2018. FINDINGS: Frontal and lateral views of the chest are obtained. A left-sided pacemaker has its leads in the right atrium and right ventricle. Hyperinflation is consistent with chronic obstructive pulmonary disease. There are no confluent infiltrates. There is no pneumothorax or pleural effusion. The heart is not enlarged. There are atherosclerotic calcifications of the aorta. IMPRESSION: 1. Chronic obstructive pulmonary disease. No confluent infiltrates.
[2018-12-06 09:17] LABS: BACTERIA,URINE 0 /HPF (0-FEW); RBC,URINE 0 /HPF (0-2); SQUAMOUS EPITHELIAL CELL,UR FEW /LPF; WBC,URINE 0 /HPF (0-4)
[2018-12-06] MEDS ORDERED: AZITHRMYCN 500MG IVPB FOR OMNI 250 ML IV ONE (09:30)
[2018-12-06 09:37] LABS: CALCIUM 10.4 mg/dL (8.5-10.1); CREATININE 1.6 mg/dL (0.7-1.3); GFR 42.1; POTASSIUM 5.1 mmol/L (3.5-5.1)
[2018-12-06 09:43] LABS: ALBUMIN 3.2 g/dL (3.4-5.0); TOTAL BILIRUBIN 1.8 mg/dL (0.2-1.0); TOTAL PROTEIN 6.3 g/dL (6.4-8.2)
--- NOTE | 2018-12-06 09:54 | PDOC1 ---
History and Physical Date of Admission Date of Admission DATE: 12/06/18 TIME: 09:54 Identification/Chief Complaint Chief Complaint Shortness of breath Source Source: Patient History of Present Illness History of Present Illness Mr Quintero is a 78yo m w/ PMHx CHF, afib, PPM, CAD, HTN, COPD who presents with shortness of breath at home for the past 3-5 days and decrease in O2 sats with activity into the 80s and upper 70s on his home pulse oximetry, was also hypoxic 84-88% in EMS, placed on O2. Reports brown sputum. Woke up this morning and states it was worse that has been. No interventions tried at home. Denies pain. Had 02 saturations of 86% on arrival to ED Unclear if weight gain, he states he thinks he actually lost a pound in the past week; feet/legs not much more edematous recently. NT-proBNP of 5051 with Cr of 1.6 and troponin I of 0.114. CXR with cardiomegaly. Mildy anemic. Calcium 10.4. Bili 1.8. Past Medical History Cardiovascular: AFIB, CAD, CHF, HTN, Hyperlipidemia, Other Pulmonary: COPD, Pneumonia CENTRAL NERVOUS SYSTEM: Other GI: Constipation, Hemorrhoids Heme/Onc: Anemia NOS Hepatobiliary: No pertinent hx Psych: Anxiety, Depression Musculoskeletal: Osteoarthritis Rheumatologic: No pertinent hx Infectious disease: No pertinent hx Renal/: Chronic renal insuff, Benign prostatic enlarg. Endocrine: No pertinent hx Past Surgical History Past Surgical History: Pacemaker, Cholecystectomy, Cataract Removal, Hernia Repair Family History Family History: Heart Disease Social History Smoke: No ALCOHOL: none Drugs: None Current Medications Current Medications Current Medications Albuterol/ Ipratropium (Duoneb) 3 ml 1X ONCE NEB Last administered on 12/06/18at 08:29; Start 12/06/18 at 08:30; Stop 12/06/18 at 08:31; Status DC Methylprednisolone Sodium Succinate (SOLU-Medrol 125MG VIAL) 125 mg 1X ONCE IV Last administered on 12/06/18at 09:03; Start 12/06/18 at 08:30; Stop 12/06/18 at 08:31; Status DC Albuterol Sulfate (Ventolin Neb Soln) 10 mg 1X ONCE CONT NEB ; Start 12/06/18 at 09:00; Stop 12/06/18 at 09:01; Status DC Azithromycin 250 ml @ 250 mls/hr 1X ONCE IV ; Start 12/06/18 at 09:30; Stop 12/06/18 at 10:29 Active Scripts Active Reported Alprazolam 0.5 Mg Tablet 0.5 Mg PO PRN Q8HRS PRN Ranitidine Hcl 75 Mg Tablet 75 Mg PO PRN DAILY PRN Zoloft (Sertraline Hcl) 25 Mg Tablet 1 Tab PO DAILY Duoneb 0.5-3(2.5) Mg/3 Ml (Albuterol/Ipratropium) 3 Ml Ampul.neb 3 Ml NEB PRN Q4HRS PRN Miralax (Polyethylene Glycol 3350) 17 Gm Powd.pack 1 Packet PO BID Ascorbic Acid 500 Mg Tablet 500 Mg PO BID Super B Complex-Vitamin C (B Complex With Vitamin C) 1 Each Tablet 1 Each PO Amiodarone Hcl 200 Mg Tablet 100 Mg PO DAILY Metoprolol Succinate ( Xl ) (Metoprolol Succinate) 25 Mg Tab.er.24h 1 Tab PO QPM Calcitriol 0.25 Mcg Capsule 0.25 Mcg PO QMTUWTH Warfarin Sodium 5 Mg Tablet 7.5 Mg PO DAILY Loratadine 10 Mg Tablet 10 Mg PO QHS Tamsulosin Hcl 0.4 Mg Cap.er.24h 0.4 Mg PO QHS Atorvastatin Calcium 10 Mg Tablet 10 Mg PO HS Flonase (Fluticasone Propionate) 16 Gm [place].susp 2 [place] NS BID Allergies Allergies: Coded Allergies: No Known Drug Allergies (Unverified , 02/05/18) ROS General: YES: Fatigue, Malaise, Appetite; No: Chills, Night Sweats, Other PSYCHOLOGICAL ROS: No: Anxiety, Behavioral Disorder, Concentration difficultie, Decreased libido, Depression, Disorientation, Hallucinations, Hostility, Irritablity, Memory difficulties, Mood Swings, Obsessive thoughts, Physical abuse, Sexual abuse, Sleep disturbances, Suicidal ideation, Other Eyes: No Blurry vision, No Decreased vision, No Double vision, No Dry eyes, No Excessive tearing, No Eye Pain, No Itchy Eyes, No Loss of vision, No Photophobia, No Scotomata, No Uses contacts, No Uses glasses, No Other HEENT: No: Heacaches, Visual Changes, Hearing change, Nasal congestion, Nasal discharge, Oral lesions, Sinus pain, Sore Throat, Epistaxis, Sneezing, Snoring, Tinnitus, Vertigo, Vocal changes, Other ALLERGY AND IMMUNOLOGY: No: Hives, Insect Bite Sensitivity, Itchy/Watery Eyes, Nasal Congestion, Post Nasal Drip, Seasonal Allergies, Other Hematological and Lymphatic: No: Bleeding Problems, Blood Clots, Blood Transfusions, Brusing, Night Sweats, Pallor, Swollen Lymph Nodes, Other ENDOCRINE: No: Breast Changes, Galactorrhea, Hair Pattern Changes, Hot Flashes, Malaise/lethargy, Mood Swings, Palpitations, Polydipsia/polyuria, Skin Changes, Temperature Intolerance, Unexpected Weight Changes, Other Breast: No New/Changing Breast Lumps, No Nipple changes, No Nipple discharge, No Other Respiratory: YES: Cough, Shortness of breath, SOB with excertion, Wheezing; No: Hemoptysis, Orthopnea, Pleuritic Pain, Sputum Changes, Stridor, Tachypnea, Other Cardiovascular: No Chest Pain, No Palpitations, No Orthopnea, No Paroxysmal Noc. Dyspnea, No Edema, No Lt Headedness, No Other Gastrointestinal: Yes Nausea; No Vomiting, No Abdominal Pain, No Diarrhea, No Constipation, No Melena, No Hematochezia, No Other Genitourinary: No Dysuria, No Frequency, No Incontinence, No Hematuria, No Retention, No Discharge, No Urgency, No Pain, No Flank Pain, No Other, No , No , No , No , No , No , No Musculoskeletal: No Gait Disturbance, No Joint Pain, No Joint Stiffness, No Joint Swelling, No Muscle Pain, No Muscular Weakness, No Pain In:, No Swelling In:, No Other Neurological: No Behavorial Changes, No Bowel/Bladder ControlChng, No Confusion, No Dizziness, No Gait Disturbance, No Headaches, No Impaired Coord/balance, No Memory Loss, No Numbness/Tingling, No Seizures, No Speech Problems, No Tremors, No Visual Changes, No Weakness, No Other Skin: No Dry Skin, No Eczema, No Hair Changes, No Lumps, No Mole Changes, No Mottling, No Nail Changes, No Pruritus, No Rash, No Skin Lesion Changes, No Other, No Acne Physical Exam General: Alert, Oriented X3, Cooperative, No acute distress HEENT: Atraumatic, PERRLA, EOMI, Mucous membr. moist/pink Lungs: Other (Bilateral wheezes and rhonci) Heart: S1S2 Abdomen: Normal bowel sounds, Soft, No tenderness, No hepatosplenomegaly, No masses Rectal Exam: not examined Extremities: No clubbing, No cyanosis, Normal pulses, No tenderness/swelling Skin: No rashes, No breakdown, No significant lesion Neuro: Normal gait, Normal speech, Strength at 5/5 X4 ext, Normal tone, Sensation intact, Cranial nerves 3-12 NL, Reflexes 2+ Psych/Mental Status: Mental status NL, Mood NL Vitals Vitals Vital Signs Date Time Temp Pulse Resp B/P (MAP) Pulse Ox O2 Delivery O2 Flow Rate FiO2 12/06/18 09:04 82 20 143/66 (91) 98 Nasal Cannula 4.0 12/06/18 08:16 96.1 96.1 Labs Labs Laboratory Tests Test 12/06/18 08:46 White Blood Count 14.7 x10^3/uL (4.0-11.0) Red Blood Count 3.38 x10^6/uL (4.30-5.70) Hemoglobin 10.8 g/dL (13.0-17.5) Hematocrit 32.7 % (39.0-53.0) Mean Corpuscular Volume 97 fL (79-100) Mean Corpuscular Hemoglobin 32 pg (25-35) Mean Corpuscular Hemoglobin Concent 33 g/dL (31-37) Red Cell Distribution Width 14.8 % (11.5-14.5) Platelet Count 133 x10^3/uL (140-400) Neutrophils (%) (Auto) 83 % (31-73) Lymphocytes (%) (Auto) 6 % (24-48) Monocytes (%) (Auto) 11 % (0-9) Eosinophils (%) (Auto) 1 % (0-3) Basophils (%) (Auto) 1 % (0-3) Neutrophils # (Auto) 12.1 x10^3uL (1.8-7.7) Lymphocytes # (Auto) 0.8 x10^3/uL (1.0-4.8) Monocytes # (Auto) 1.6 x10^3/uL (0.0-1.1) Eosinophils # (Auto) 0.1 x10^3/uL (0.0-0.7) Basophils # (Auto) 0.1 x10^3/uL (0.0-0.2) Urine Collection Type Unknown Urine Color Yellow Urine Clarity Clear Urine pH 5.0 Urine Specific [place] 1.010 Urine Protein Negative mg/dL (NEG-TRACE) Urine Glucose (UA) Negative mg/dL (NEG) Urine Ketones (Stick) Negative mg/dL (NEG) Urine Blood Negative (NEG) Urine Nitrite Negative (NEG) Urine Bilirubin Negative (NEG) Urine Urobilinogen Dipstick 0.2 mg/dL (0.2 mg/dL) Urine Leukocyte Esterase Negative (NEG) Urine RBC 0 /HPF (0-2) Urine WBC 0 /HPF (0-4) Urine Squamous Epithelial Cells Few /LPF Urine Bacteria 0 /HPF (0-FEW) Urine Mucus Slight /LPF Sodium Level 142 mmol/L (136-145) Potassium Level 5.1 mmol/L (3.5-5.1) Chloride Level 106 mmol/L (98-107) Carbon Dioxide Level 24 mmol/L (21-32) Anion Gap 12 (6-14) Blood Urea Nitrogen 41 mg/dL (8-26) Creatinine 1.6 mg/dL (0.7-1.3) Estimated GFR (Cockcroft-Gault) 42.1 BUN/Creatinine Ratio 26 (6-20) Glucose Level 114 mg/dL (70-99) Lactic Acid Level 0.9 mmol/L (0.4-2.0) Calcium Level 10.4 mg/dL (8.5-10.1) Total Bilirubin 1.8 mg/dL (0.2-1.0) Aspartate Amino Transf (AST/SGOT) 30 U/L (15-37) Alanine Aminotransferase (ALT/SGPT) 37 U/L (16-63) Alkaline Phosphatase 72 U/L (46-116) Troponin I Quantitative 0.114 ng/mL (0.000-0.055) GA-Mzm-T-Type Natriuretic Peptide 5051 pg/mL (0-449) Total Protein 6.3 g/dL (6.4-8.2) Albumin 3.2 g/dL (3.4-5.0) Albumin/Globulin Ratio 1.0 (1.0-1.7) Laboratory Tests Test 12/06/18 08:46 White Blood Count 14.7 x10^3/uL (4.0-11.0) Red Blood Count 3.38 x10^6/uL (4.30-5.70) Hemoglobin 10.8 g/dL (13.0-17.5) Hematocrit 32.7 % (39.0-53.0) Mean Corpuscular Volume 97 fL (79-100) Mean Corpuscular Hemoglobin 32 pg (25-35) Mean Corpuscular Hemoglobin Concent 33 g/dL (31-37) Red Cell Distribution Width 14.8 % (11.5-14.5) Platelet Count 133 x10^3/uL (140-400) Neutrophils (%) (Auto) 83 % (31-73) Lymphocytes (%) (Auto) 6 % (24-48) Monocytes (%) (Auto) 11 % (0-9) Eosinophils (%) (Auto) 1 % (0-3) Basophils (%) (Auto) 1 % (0-3) Neutrophils # (Auto) 12.1 x10^3uL (1.8-7.7) Lymphocytes # (Auto) 0.8 x10^3/uL (1.0-4.8) Monocytes # (Auto) 1.6 x10^3/uL (0.0-1.1) Eosinophils # (Auto) 0.1 x10^3/uL (0.0-0.7) Basophils # (Auto) 0.1 x10^3/uL (0.0-0.2) Urine Collection Type Unknown Urine Color Yellow Urine Clarity Clear Urine pH 5.0 Urine Specific [place] 1.010 Urine Protein Negative mg/dL (NEG-TRACE) Urine Glucose (UA) Negative mg/dL (NEG) Urine Ketones (Stick) Negative mg/dL (NEG) Urine Blood Negative (NEG) Urine Nitrite Negative (NEG) Urine Bilirubin Negative (NEG) Urine Urobilinogen Dipstick 0.2 mg/dL (0.2 mg/dL) Urine Leukocyte Esterase Negative (NEG) Urine RBC 0 /HPF (0-2) Urine WBC 0 /HPF (0-4) Urine Squamous Epithelial Cells Few /LPF Urine Bacteria 0 /HPF (0-FEW) Urine Mucus Slight /LPF Sodium Level 142 mmol/L (136-145) Potassium Level 5.1 mmol/L (3.5-5.1) Chloride Level 106 mmol/L (98-107) Carbon Dioxide Level 24 mmol/L (21-32) Anion Gap 12 (6-14) Blood Urea Nitrogen 41 mg/dL (8-26) Creatinine 1.6 mg/dL (0.7-1.3) Estimated GFR (Cockcroft-Gault) 42.1 BUN/Creatinine Ratio 26 (6-20) Glucose Level 114 mg/dL (70-99) Lactic Acid Level 0.9 mmol/L (0.4-2.0) Calcium Level 10.4 mg/dL (8.5-10.1) Total Bilirubin 1.8 mg/dL (0.2-1.0) Aspartate Amino Transf (AST/SGOT) 30 U/L (15-37) Alanine Aminotransferase (ALT/SGPT) 37 U/L (16-63) Alkaline Phosphatase 72 U/L (46-116) Troponin I Quantitative 0.114 ng/mL (0.000-0.055) GH-Pyb-Y-Type Natriuretic Peptide 5051 pg/mL (0-449) Total Protein 6.3 g/dL (6.4-8.2) Albumin 3.2 g/dL (3.4-5.0) Albumin/Globulin Ratio 1.0 (1.0-1.7) VTE Prophylaxis Ordered VTE Prophylaxis Devices: No VTE Pharmacological Prophylaxi: Yes Assessment/Plan Assessment/Plan A/P: Acute Hypoxia - with significant desaturations, will check INR, on warfarin, consult pulmonology. This does not appear to be a severe CHF exacerbation, but is definitely a mild one. 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 Ejection fraction of 50-55% on most recent echocardiogram. will start IV diuresis. Defer to cardiology on further diuresis with monitoring of renal function. Paroxysmal atrial fibrillation - currently irregular on monitor. Treated with amiodarone and anticoagulation. Continue telemetry. Continue present treatment. Sick sinus syndrome and permanent pacemaker - appears to be capturing on monitor. Will monitor Hyperlipidemia - Continue medical treatment CKD - Cr 1.6, does not seem to have current JAYDON. Hypercalcemia - 10.4, will monitor Acute COPD exacerbation - will consult pulmonology, with sputum will continue antibiotics, nebs. steroids FEN - Cardiac diet, 2L fluid restriction PPX - on warfarin, check INR FULL CODE Inpatient for acute hypoxia for at least 2 midnights. KAREEM HARRIS MD Dec 06, 2018 09:54
[2018-12-06] MEDS ORDERED: MORPHINE SULFATE 2 MG/ML VIAL. IV PRN (10:15)
[2018-12-06] MEDS ORDERED: ONDANSETRON PF 4 MG/2 ML VIAL. IV PRN (10:15)
[2018-12-06] MEDS ORDERED: DOXYCYCLINE HYCLATE 100 MG in IV DEXTROSE 5% 100ML 100 ML IV ONE (10:15)
[2018-12-06 11:00] VITALS: BP 137/71
--- NOTE | 2018-12-06 11:19 | EKG ---
[facility] [address] [place] [address] Test Date: 2018-12-06 Test Time: 08:37:08 Pat Name: JOSEP SIMS Department: Room: Gender: M Bin Packer: : 1940 Requested By: SUSSY JEFFREY Order Number: [id number] Reading MD: Measurements Intervals [place] Rate: 92 P: AL: QRS: -79 QRSD: 188 T: 86 QT: 414 QTc: 518 Interpretive Statements IRREGULAR RHYTHM, NO P-WAVE FOUND VENTRICULAR PREMATURE COMPLEX(ES) ABNORMAL LEFT AXIS DEVIATION RIGHT BUNDLE BRANCH BLOCK QRS(T) CONTOUR ABNORMALITY CONSISTENT WITH SEPTAL INFARCT PROBABLY OLD CONSISTENT WITH INFERIOR INFARCT POSSIBLY RECENT ABNORMAL ECG RI6.01 Unconfirmed report No previous ECG available for comparison
[2018-12-06] MEDS ORDERED: METO-239 PO (11:33)
[2018-12-06] MEDS ORDERED: POTA10TA12 PO (11:33)
[2018-12-06] MEDS ORDERED: POLY119P4 PO (11:39)
[2018-12-06] MEDS ORDERED: ALPR0.5T PO (11:39)
[2018-12-06] MEDS ORDERED: FURO20TA3 PO (11:39)
--- NOTE | 2018-12-06 12:14 | PDOC ---
PULMONARY PROGRESS NOTES Vitals Vital Signs Date Time Temp Pulse Resp B/P (MAP) Pulse Ox O2 Delivery O2 Flow Rate FiO2 12/06/18 11:00 97.5 83 18 137/71 (93) 99 Nasal Cannula 2.0 97.5 General: Alert, No acute distress Lungs: Clear Cardiovascular: S1, S2, Other Abdomen: Soft, Other Extremities: No Edema, Other Labs Laboratory Tests Test 12/06/18 08:46 White Blood Count 14.7 x10^3/uL (4.0-11.0) Red Blood Count 3.38 x10^6/uL (4.30-5.70) Hemoglobin 10.8 g/dL (13.0-17.5) Hematocrit 32.7 % (39.0-53.0) Mean Corpuscular Volume 97 fL (79-100) Mean Corpuscular Hemoglobin 32 pg (25-35) Mean Corpuscular Hemoglobin Concent 33 g/dL (31-37) Red Cell Distribution Width 14.8 % (11.5-14.5) Platelet Count 133 x10^3/uL (140-400) Neutrophils (%) (Auto) 83 % (31-73) Lymphocytes (%) (Auto) 6 % (24-48) Monocytes (%) (Auto) 11 % (0-9) Eosinophils (%) (Auto) 1 % (0-3) Basophils (%) (Auto) 1 % (0-3) Neutrophils # (Auto) 12.1 x10^3uL (1.8-7.7) Lymphocytes # (Auto) 0.8 x10^3/uL (1.0-4.8) Monocytes # (Auto) 1.6 x10^3/uL (0.0-1.1) Eosinophils # (Auto) 0.1 x10^3/uL (0.0-0.7) Basophils # (Auto) 0.1 x10^3/uL (0.0-0.2) Urine Collection Type Unknown Urine Color Yellow Urine Clarity Clear Urine pH 5.0 Urine Specific [place] 1.010 Urine Protein Negative mg/dL (NEG-TRACE) Urine Glucose (UA) Negative mg/dL (NEG) Urine Ketones (Stick) Negative mg/dL (NEG) Urine Blood Negative (NEG) Urine Nitrite Negative (NEG) Urine Bilirubin Negative (NEG) Urine Urobilinogen Dipstick 0.2 mg/dL (0.2 mg/dL) Urine Leukocyte Esterase Negative (NEG) Urine RBC 0 /HPF (0-2) Urine WBC 0 /HPF (0-4) Urine Squamous Epithelial Cells Few /LPF Urine Bacteria 0 /HPF (0-FEW) Urine Mucus Slight /LPF Sodium Level 142 mmol/L (136-145) Potassium Level 5.1 mmol/L (3.5-5.1) Chloride Level 106 mmol/L (98-107) Carbon Dioxide Level 24 mmol/L (21-32) Anion Gap 12 (6-14) Blood Urea Nitrogen 41 mg/dL (8-26) Creatinine 1.6 mg/dL (0.7-1.3) Estimated GFR (Cockcroft-Gault) 42.1 BUN/Creatinine Ratio 26 (6-20) Glucose Level 114 mg/dL (70-99) Lactic Acid Level 0.9 mmol/L (0.4-2.0) Calcium Level 10.4 mg/dL (8.5-10.1) Total Bilirubin 1.8 mg/dL (0.2-1.0) Aspartate Amino Transf (AST/SGOT) 30 U/L (15-37) Alanine Aminotransferase (ALT/SGPT) 37 U/L (16-63) Alkaline Phosphatase 72 U/L (46-116) Troponin I Quantitative 0.114 ng/mL (0.000-0.055) TX-Xsx-Y-Type Natriuretic Peptide 5051 pg/mL (0-449) Total Protein 6.3 g/dL (6.4-8.2) Albumin 3.2 g/dL (3.4-5.0) Albumin/Globulin Ratio 1.0 (1.0-1.7) Laboratory Tests Test 12/06/18 08:46 White Blood Count 14.7 x10^3/uL (4.0-11.0) Red Blood Count 3.38 x10^6/uL (4.30-5.70) Hemoglobin 10.8 g/dL (13.0-17.5) Hematocrit 32.7 % (39.0-53.0) Mean Corpuscular Volume 97 fL (79-100) Mean Corpuscular Hemoglobin 32 pg (25-35) Mean Corpuscular Hemoglobin Concent 33 g/dL (31-37) Red Cell Distribution Width 14.8 % (11.5-14.5) Platelet Count 133 x10^3/uL (140-400) Neutrophils (%) (Auto) 83 % (31-73) Lymphocytes (%) (Auto) 6 % (24-48) Monocytes (%) (Auto) 11 % (0-9) Eosinophils (%) (Auto) 1 % (0-3) Basophils (%) (Auto) 1 % (0-3) Neutrophils # (Auto) 12.1 x10^3uL (1.8-7.7) Lymphocytes # (Auto) 0.8 x10^3/uL (1.0-4.8) Monocytes # (Auto) 1.6 x10^3/uL (0.0-1.1) Eosinophils # (Auto) 0.1 x10^3/uL (0.0-0.7) Basophils # (Auto) 0.1 x10^3/uL (0.0-0.2) Urine Collection Type Unknown Urine Color Yellow Urine Clarity Clear Urine pH 5.0 Urine Specific [place] 1.010 Urine Protein Negative mg/dL (NEG-TRACE) Urine Glucose (UA) Negative mg/dL (NEG) Urine Ketones (Stick) Negative mg/dL (NEG) Urine Blood Negative (NEG) Urine Nitrite Negative (NEG) Urine Bilirubin Negative (NEG) Urine Urobilinogen Dipstick 0.2 mg/dL (0.2 mg/dL) Urine Leukocyte Esterase Negative (NEG) Urine RBC 0 /HPF (0-2) Urine WBC 0 /HPF (0-4) Urine Squamous Epithelial Cells Few /LPF Urine Bacteria 0 /HPF (0-FEW) Urine Mucus Slight /LPF Sodium Level 142 mmol/L (136-145) Potassium Level 5.1 mmol/L (3.5-5.1) Chloride Level 106 mmol/L (98-107) Carbon Dioxide Level 24 mmol/L (21-32) Anion Gap 12 (6-14) Blood Urea Nitrogen 41 mg/dL (8-26) Creatinine 1.6 mg/dL (0.7-1.3) Estimated GFR (Cockcroft-Gault) 42.1 BUN/Creatinine Ratio 26 (6-20) Glucose Level 114 mg/dL (70-99) Lactic Acid Level 0.9 mmol/L (0.4-2.0) Calcium Level 10.4 mg/dL (8.5-10.1) Total Bilirubin 1.8 mg/dL (0.2-1.0) Aspartate Amino Transf (AST/SGOT) 30 U/L (15-37) Alanine Aminotransferase (ALT/SGPT) 37 U/L (16-63) Alkaline Phosphatase 72 U/L (46-116) Troponin I Quantitative 0.114 ng/mL (0.000-0.055) NT-Diz-L-Type Natriuretic Peptide 5051 pg/mL (0-449) Total Protein 6.3 g/dL (6.4-8.2) Albumin 3.2 g/dL (3.4-5.0) Albumin/Globulin Ratio 1.0 (1.0-1.7) Medications Active Scripts Medications Dose Route/Sig Max Daily Dose Days Date Category Xanax (Alprazolam) 0.5 Mg Tablet 0.5 Mg PO PRN Q6HRS PRN 12/06/18 Reported Miralax (Polyethylene Glycol 3350) 119 Gm Powder 17 Gm PO PRN DAILY PRN 12/06/18 Reported Furosemide 20 Mg Tablet 20 Mg PO DAILY 12/06/18 Reported Potassium Chloride 10 Meq Tablet.er 10 Meq PO QMWF 12/06/18 Reported Metoprolol Succinate ( Xl ) (Metoprolol Succinate) 25 Mg Tab.er.24h 12.5 Mg PO DAILY 12/06/18 Reported Duoneb 0.5-3(2.5) Mg/3 Ml (Albuterol/Ipratropium) 3 Ml Ampul.neb 3 Ml NEB TID PRN 03/16/18 Reported Ascorbic Acid 500 Mg Tablet 500 Mg PO BID 03/15/18 Reported Super B Complex-Vitamin C (B Complex With Vitamin C) 1 Each Tablet 1 Each PO 12/04/17 Reported Calcitriol 0.25 Mcg Capsule 0.25 Mcg PO QMTUWTH 05/24/16 Reported Warfarin Sodium 5 Mg Tablet 7.5 Mg PO DAILY 05/24/16 Reported Loratadine 10 Mg Tablet 10 Mg PO QHS 10/16/14 Reported Tamsulosin Hcl 0.4 Mg Cap.er.24h 0.4 Mg PO QHS 10/16/14 Reported Atorvastatin Calcium 10 Mg Tablet 10 Mg PO HS 10/16/14 Reported Flonase (Fluticasone Propionate) 16 Gm Lamar.susp 2 Lamar NS BID 01/06/14 Reported Impression . FULL CONSULT DICTATED AECOPD A/C RESP FAILURE DEENA PEARCE MD Dec 06, 2018 12:14
[2018-12-06] MEDS ORDERED: ALBUTEROL SULFATE 2.5 MG/3 ML NEBU. NEB PRN (12:15)
--- NOTE | 2018-12-06 12:53 | PDOC2 ---
CARDIAC CONSULT DATE OF CONSULT Date of Consult DATE: 12/06/18 TIME: 12:41 REASON FOR CONSULT Reason for Consult: CHF Exacerbation Elevated troponin REFERRING PHYSICIAN Referring Physician: Channing Panda APRN SOURCE Source: Chart review, Patient HISTORY OF PRESENT ILLNESS HISTORY OF PRESENT ILLNESS This is a 78 you male who presented secondary to shortness of breath. Patient reports having shortness of breath over the last 6 months or so. Was seen by pul monary on an outpatient basis and treated with steroids, which significantly improved breathing. 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 Yesterday, notice development of a sore through and mild cough. Today, was more short of breath and cough productive of yellow sputum. Denies any chest pain, dizziness, diaphoresis, palpitations, or [place]/vomiting Reports compliance with medications. PAST MEDICAL HISTORY Past Medical History Cardiovascular: AFIB, CAD (mild non-obstructive on cath - 2013), CHF, HTN, Hyperlipidemia, Other (non-ischemic cardiomyopathy; PPP) Pulmonary: COPD, Pneumonia CENTRAL NERVOUS SYSTEM: Other (none) GI: Constipation, Hemorrhoids Heme/Onc: Anemia NOS Hepatobiliary: No pertinent hx Psych: Anxiety, Depression Musculoskeletal: Osteoarthritis Rheumatologic: No pertinent hx Infectious disease: No pertinent hx ENT: No pertinent hx Renal/: Chronic renal insuff, Benign prostatic enlarg. Endocrine: No pertinent hx Dermatology: No pertinent hx PAST SURGICAL HISTORY Past Surgical History Pacemaker, Cholecystectomy, Cataract Removal, Hernia Repair FAMILY HISTORY Family History: Heart Disease SOCIAL HISTORY Social History Smoke: No ALCOHOL: none Drugs: None Lives: with Family CURRENT MEDICATIONS CURRENT MEDICATIONS Current Medications Medications (Trade) Dose Ordered Sig/Patricia Route PRN Reason Start Time Stop Time Status Last Admin Dose Admin Albuterol/ Ipratropium (Duoneb) 3 ml 1X ONCE NEB 12/06/18 08:30 12/06/18 08:31 DC 12/06/18 08:29 Methylprednisolone Sodium Succinate (SOLU-Medrol 125MG VIAL) 125 mg 1X ONCE IV 12/06/18 08:30 12/06/18 08:31 DC 12/06/18 09:03 Albuterol Sulfate (Ventolin Neb Soln) 10 mg 1X ONCE CONT NEB 12/06/18 09:00 12/06/18 09:01 DC 12/06/18 09:54 Doxycycline Hyclate 100 mg/ Dextrose 100 ml @ 50 mls/hr 1X ONCE IV 12/06/18 10:15 12/06/18 12:14 DC 12/06/18 10:23 ALLERGIES ALLERGIES: Coded Allergies: No Known Drug Allergies (Unverified , 02/05/18) ROS Review of System 14 point ROS conducted with pertinent positives noted above in HPI. PHYSICAL EXAM General: Alert, Oriented X3, Cooperative, No acute distress HEENT: Atraumatic, Mucous membr. moist/pink Lungs: Other (fine expiratory wheezes, diminished throughout ) Heart: Regular rate, Normal S1, Normal S2 Abdomen: Soft, No tenderness Extremities: Other (trace bilateral LE edema ) Neuro: Normal speech, Sensation intact Psych/Mental Status: Mental status NL, Mood NL MUSCULOSKELETAL: Osteoarthritic changes both hands VITALS VITALS Vital Signs Date Time Temp Pulse Resp B/P (MAP) Pulse Ox O2 Delivery O2 Flow Rate FiO2 12/06/18 11:00 97.5 83 18 137/71 (93) 99 Nasal Cannula 2.0 97.5 LABS Lab: Laboratory Tests Test 12/06/18 08:46 White Blood Count 14.7 x10^3/uL (4.0-11.0) Red Blood Count 3.38 x10^6/uL (4.30-5.70) Hemoglobin 10.8 g/dL (13.0-17.5) Hematocrit 32.7 % (39.0-53.0) Mean Corpuscular Volume 97 fL (79-100) Mean Corpuscular Hemoglobin 32 pg (25-35) Mean Corpuscular Hemoglobin Concent 33 g/dL (31-37) Red Cell Distribution Width 14.8 % (11.5-14.5) Platelet Count 133 x10^3/uL (140-400) Neutrophils (%) (Auto) 83 % (31-73) Lymphocytes (%) (Auto) 6 % (24-48) Monocytes (%) (Auto) 11 % (0-9) Eosinophils (%) (Auto) 1 % (0-3) Basophils (%) (Auto) 1 % (0-3) Neutrophils # (Auto) 12.1 x10^3uL (1.8-7.7) Lymphocytes # (Auto) 0.8 x10^3/uL (1.0-4.8) Monocytes # (Auto) 1.6 x10^3/uL (0.0-1.1) Eosinophils # (Auto) 0.1 x10^3/uL (0.0-0.7) Basophils # (Auto) 0.1 x10^3/uL (0.0-0.2) Urine Collection Type Unknown Urine Color Yellow Urine Clarity Clear Urine pH 5.0 Urine Specific [place] 1.010 Urine Protein Negative mg/dL (NEG-TRACE) Urine Glucose (UA) Negative mg/dL (NEG) Urine Ketones (Stick) Negative mg/dL (NEG) Urine Blood Negative (NEG) Urine Nitrite Negative (NEG) Urine Bilirubin Negative (NEG) Urine Urobilinogen Dipstick 0.2 mg/dL (0.2 mg/dL) Urine Leukocyte Esterase Negative (NEG) Urine RBC 0 /HPF (0-2) Urine WBC 0 /HPF (0-4) Urine Squamous Epithelial Cells Few /LPF Urine Bacteria 0 /HPF (0-FEW) Urine Mucus Slight /LPF Sodium Level 142 mmol/L (136-145) Potassium Level 5.1 mmol/L (3.5-5.1) Chloride Level 106 mmol/L (98-107) Carbon Dioxide Level 24 mmol/L (21-32) Anion Gap 12 (6-14) Blood Urea Nitrogen 41 mg/dL (8-26) Creatinine 1.6 mg/dL (0.7-1.3) Estimated GFR (Cockcroft-Gault) 42.1 BUN/Creatinine Ratio 26 (6-20) Glucose Level 114 mg/dL (70-99) Lactic Acid Level 0.9 mmol/L (0.4-2.0) Calcium Level 10.4 mg/dL (8.5-10.1) Total Bilirubin 1.8 mg/dL (0.2-1.0) Aspartate Amino Transf (AST/SGOT) 30 U/L (15-37) Alanine Aminotransferase (ALT/SGPT) 37 U/L (16-63) Alkaline Phosphatase 72 U/L (46-116) Troponin I Quantitative 0.114 ng/mL (0.000-0.055) OT-Rsy-U-Type Natriuretic Peptide 5051 pg/mL (0-449) Total Protein 6.3 g/dL (6.4-8.2) Albumin 3.2 g/dL (3.4-5.0) Albumin/Globulin Ratio 1.0 (1.0-1.7) ECHOCARDIOGRAM ECHOCARDIOGRAM <Conclusion> Left ventricle systolic function is normal.. The Ejection Fraction is 50-55%. Septal motion consistent with conduction abnormality from paced rhythm. There is a pacemaker lead in the right ventricle. The left atrium is moderately dilated. Mild mitral regurgitation. Mild tricuspid regurgitation. The PA pressure was estimated at 35 mmHg. There is no evidence of significant pericardial effusion. DATE: 12/07/17 0745 <Conclusion> Left ventricle systolic function is normal. The Ejection Fraction is 50-55%. Apical motion consistent with pacemaker activation. There is a pacemaker lead in the right ventricle. Mild mitral regurgitation. Mild tricuspid regurgitation. The PA pressure was estimated at 66 mmHg. There is no evidence of significant pericardial effusion. DATE: 11/22/18 1152 STRESS TEST STRESS TEST MPI Conclusion 1. No EKG evidence of stressed induced ischemia. 2. Nuclear imaging shows no reversible ischemia or infarct. 3. Overall normal LV systolic function with an ejection fraction of 58% a small area of mild hypokinesis in the septal wall. 4. Moderately low risk Lexiscan nuclear stress test. DATE: 02/15/18 1258 HEART CATH HEART CATH HEART CATH Conclusion 1. Non obstructive coronary artery disease 2. Moderate global left ventricular systolic dysfunction with ejection fraction estimated at 30-35% 3. No significant mitral regurgitation or aortic stenosis Recommendations Optimization of medical therapy for non ischemic cardiomyopathy. Repeat 2D echo in 3 months and cnsider upgrading pacemaker to Biventricular ICD/LABOR RELATIONS OR PERSONNEL NEGOTIATOR-D. DATE: 05/15/14 1043 ASSESSMENT/PLAN ASSESSMENT/PLAN 1. Acute on chronic respiratory failure with AECOPD, acute viral illness. As per pulmonary 2. Mild acute on chronic diastolic CHF. Echo 11/2018 with LVEF 50-55%. Mild di uresis 3. PAFIB; 100% v-paced with underlying AFIB. Warfarin for stroke prophylaxis. INR 2.3 4. Mild troponin elevation; initial troponin 0.1. likely demand mediated, type 2 5. SSS with PPM in situ: Biotronik. 6. HLP; statin 7. HTN: controlled 8. Chronic anemia/thrombocytopenia 9. CKD; Cr at 1.6 NICOLASA FITCH APRN Dec 06, 2018 12:53
[2018-12-06] MEDS: IPRATRPIUM/ALBUTEROL 0.5/2.5MG 3 ML NEBU. NEB SCH ×3 (13:00→20:46)
[2018-12-06] MEDS ORDERED: AZITHROMYCIN 500 MG in IV NORMAL SALINE 250ML 250 ML IV SCH (13:00)
[2018-12-06] MEDS ORDERED: ENOXAPARIN 40 MG/0.4 ML SYRINGE. SQ SCH (13:00)
[2018-12-06] MEDS: cefTRIAXone IV Push 1 GM VIAL. IVP SCH (13:04)
[2018-12-06] MEDS ORDERED: ALPRAZolam 0.5 MG TABLET PO PRN (14:45)
[2018-12-06 15:00] VITALS: BP 114/63
[2018-12-06 15:07] LABS: PROTHROMBIN TIME PATIENT 25.2 SEC (11.7-14.0)
[2018-12-06] MEDS ORDERED: POTASSIUM CHLORIDE 10 MEQ TABLET.ER. PO SCH (16:00)
[2018-12-06] MEDS ORDERED: WARFARIN 7.5 MG TABLET. PO ONE (16:00)
[2018-12-06] MEDS: METOPROLOL SUCC 24HR ER 25 MG TAB.ER.24H. PO SCH (17:45)
[2018-12-06] MEDS: FUROSEMIDE 20 MG/2 ML VIAL. IVP SCH (17:46)
[2018-12-06 19:46] VITALS: BP 110/65
[2018-12-06] MEDS: FLUTICASONE 50MCG/NASAL SPRAY 16GM BOTTLE. NS SCH (20:39)
[2018-12-06] MEDS: ASCORBIC ACID 500 MG TABLET PO SCH (20:39)
[2018-12-06] MEDS: methylPREDNISolone SOD SUCC PF 125 MG/2 ML VIAL. IV SCH (20:40)
[2018-12-06] MEDS ORDERED: TAMSULOSIN 0.4 MG CAP.ER.24H. PO SCH (21:00)
[2018-12-06] MEDS ORDERED: ATORVASTATIN CALCIUM 10 MG TABLET. PO SCH (21:00)
--- NOTE | 2018-12-06 23:06 | CONS ---
DATE OF CONSULTATION: 12/06/2018 ATTENDING PHYSICIAN: Jatin Snow M.D. REASON FOR CONSULTATION: The patient seen in Pulmonary consultation at the request of Dr. Snow for increasing shortness of air. HISTORY OF PRESENT ILLNESS: The patient is a 78-year-old male well known to me from previous hospitalization, chronic respiratory failure, normally on 2 liters of oxygen supplementation, 3 with exertion and 3 at bedtime. He was seen in the office last week by Dr. Stock, who was actually treated for acute exacerbation with some prednisone. The patient did not improve yesterday. He presented today with increasing shortness of air. He had O2 saturation on his normal 2 liters at rest at 86%. The patient was severely short of air. He was using accessory muscles to breathe. He was then admitted. He is currently undergoing continuous breathing treatments. He is awake and alert, has a cough productive of thick green sputum and yesterday had a sore throat. Chest x-ray was obtained, I reviewed it and there is no any acute infiltrates. The patient denies fever, chills, nausea, vomiting, diarrhea. PAST MEDICAL HISTORY: 1. Chronic respiratory failure, COPD, moderate to severe. 2. Chronic AFib. 3. Obstructive sleep apnea. 4. Seasonal allergies. 5. Renal insufficiency. 6. Tobacco dependence, in remission. PAST SURGICAL HISTORY: Status post cholecystectomy, pacemaker and tonsillectomy. SOCIAL HISTORY: He is currently not smoking. REVIEW OF SYSTEMS: CONSTITUTIONAL: No fever or chills. EYES: No change in visual acuity. HEENT: No nasal congestion or sore throat. PULMONARY: As indicated above. CARDIOVASCULAR: No chest pain. No pressure. GASTROINTESTINAL: No nausea, vomiting or diarrhea. GENITOURINARY: No dysuria or frequency. MUSCULOSKELETAL: No localized muscle aches or joint pain. SKIN: No new skin rashes. NEUROLOGICAL: No headaches, diplopia or blurred vision. MEDICATIONS: List was reviewed. ALLERGIES: No known drug allergies. FAMILY HISTORY: No family history of lung disorders or lung cancer. PHYSICAL EXAMINATION: GENERAL: The patient appeared to be younger than stated age. VITAL SIGNS: Stable. O2 saturation was greater than 92%. HEENT: Eyes, the sclerae were nonicteric. NECK: Jugular venous distention was not elevated. No lymphadenopathy. CHEST: Full expansion. LUNGS: Adequate airway flow with no wheezes. CARDIOVASCULAR: Regular rate and rhythm with S1 and S2. No S3. ABDOMEN: Soft and obese. EXTREMITIES: No clubbing or cyanosis. Minimal edema. NEUROLOGICAL: The patient was awake, alert and following commands. A detailed neuro exam was not performed. LABORATORY DATA: White count was elevated. Hemoglobin and hematocrit were noted. BUN was elevated at 41 and creatinine was 1.6. Troponin was slightly elevated. BNP was elevated. RADIOLOGICAL DATA: Chest x-ray was reviewed once again, no acute infiltrates. IMPRESSION: 1. [id number] respiratory failure. 2. Acute exacerbation of chronic obstructive pulmonary disease. 3. Tobacco dependence, in remission. 4. Obstructive sleep apnea. 5. Elevated troponin compatible with demand ischemia. 6. Obesity. 7. Hypertension. 8. Other comorbidities including atrial fibrillation, coronary artery disease, chronic heart failure and hypertension. PLAN: 1. Continue oxygen supplementation. 2. Nebulized treatments. 3. Steroids and antibiotics. 4. Consult Cardiology, already performed. 5. Diurese. I do appreciate the privilege in sharing in the patient's care. DEENA PEARCE MD DR: JAIME/deidre JOB#: [id number] / [id number]
[2018-12-06 23:58] VITALS: BP 119/62
[2018-12-07 00:55] LABS: CALCIUM 10.4 mg/dL (8.5-10.1); CREATININE 1.8 mg/dL (0.7-1.3); GFR 36.8; POTASSIUM 4.6 mmol/L (3.5-5.1)
[2018-12-07 00:57] LABS: PROTHROMBIN TIME PATIENT 29.2 SEC (11.7-14.0)
[2018-12-07 03:05] VITALS: BP 106/51
[2018-12-07 07:00] VITALS: BP 129/79
[2018-12-07] MEDS: IPRATRPIUM/ALBUTEROL 0.5/2.5MG 3 ML NEBU. NEB SCH ×2 (07:17→11:33)
--- NOTE | 2018-12-07 08:43 | PDOC ---
PULMONARY PROGRESS NOTES Subjective PT FEELS BETTER WISHES TO GO HOME Vitals Vital Signs Date Time Temp Pulse Resp B/P (MAP) Pulse Ox O2 Delivery O2 Flow Rate FiO2 12/07/18 08:00 Nasal Cannula 1.0 12/07/18 07:18 96 12/07/18 07:00 97.4 78 18 129/79 (96) 97.4 ROS: No Nausea, No Chest Pain, No Abdominal Pain, No Increase Cough General: Alert, No acute distress Lungs: Clear Cardiovascular: S1, S2, Other Abdomen: Soft, Other Extremities: No Edema, Other Labs Laboratory Tests Test 12/06/18 08:46 12/06/18 17:55 12/07/18 00:20 12/07/18 03:05 White Blood Count 14.7 x10^3/uL (4.0-11.0) Red Blood Count 3.38 x10^6/uL (4.30-5.70) Hemoglobin 10.8 g/dL (13.0-17.5) Hematocrit 32.7 % (39.0-53.0) Mean Corpuscular Volume 97 fL (79-100) Mean Corpuscular Hemoglobin 32 pg (25-35) Mean Corpuscular Hemoglobin Concent 33 g/dL (31-37) Red Cell Distribution Width 14.8 % (11.5-14.5) Platelet Count 133 x10^3/uL (140-400) Neutrophils (%) (Auto) 83 % (31-73) Lymphocytes (%) (Auto) 6 % (24-48) Monocytes (%) (Auto) 11 % (0-9) Eosinophils (%) (Auto) 1 % (0-3) Basophils (%) (Auto) 1 % (0-3) Neutrophils # (Auto) 12.1 x10^3uL (1.8-7.7) Lymphocytes # (Auto) 0.8 x10^3/uL (1.0-4.8) Monocytes # (Auto) 1.6 x10^3/uL (0.0-1.1) Eosinophils # (Auto) 0.1 x10^3/uL (0.0-0.7) Basophils # (Auto) 0.1 x10^3/uL (0.0-0.2) Prothrombin Time 25.2 SEC (11.7-14.0) 29.2 SEC (11.7-14.0) Prothromb Time International Ratio 2.3 (0.8-1.1) 2.8 (0.8-1.1) Urine Collection Type Unknown Urine Color Yellow Urine Clarity Clear Urine pH 5.0 Urine Specific Melvin 1.010 Urine Protein Negative mg/dL (NEG-TRACE) Urine Glucose (UA) Negative mg/dL (NEG) Urine Ketones (Stick) Negative mg/dL (NEG) Urine Blood Negative (NEG) Urine Nitrite Negative (NEG) Urine Bilirubin Negative (NEG) Urine Urobilinogen Dipstick 0.2 mg/dL (0.2 mg/dL) Urine Leukocyte Esterase Negative (NEG) Urine RBC 0 /HPF (0-2) Urine WBC 0 /HPF (0-4) Urine Squamous Epithelial Cells Few /LPF Urine Bacteria 0 /HPF (0-FEW) Urine Mucus Slight /LPF Sodium Level 142 mmol/L (136-145) 143 mmol/L (136-145) Potassium Level 5.1 mmol/L (3.5-5.1) 4.6 mmol/L (3.5-5.1) Chloride Level 106 mmol/L (98-107) 108 mmol/L (98-107) Carbon Dioxide Level 24 mmol/L (21-32) 25 mmol/L (21-32) Anion Gap 12 (6-14) 10 (6-14) Blood Urea Nitrogen 41 mg/dL (8-26) 48 mg/dL (8-26) Creatinine 1.6 mg/dL (0.7-1.3) 1.8 mg/dL (0.7-1.3) Estimated GFR (Cockcroft-Gault) 42.1 36.8 BUN/Creatinine Ratio 26 (6-20) Glucose Level 114 mg/dL (70-99) 217 mg/dL (70-99) Lactic Acid Level 0.9 mmol/L (0.4-2.0) Calcium Level 10.4 mg/dL (8.5-10.1) 10.4 mg/dL (8.5-10.1) Total Bilirubin 1.8 mg/dL (0.2-1.0) Aspartate Amino Transf (AST/SGOT) 30 U/L (15-37) Alanine Aminotransferase (ALT/SGPT) 37 U/L (16-63) Alkaline Phosphatase 72 U/L (46-116) Troponin I Quantitative 0.114 ng/mL (0.000-0.055) 0.120 ng/mL (0.000-0.055) 0.112 ng/mL (0.000-0.055) ZA-Lwz-O-Type Natriuretic Peptide 5051 pg/mL (0-449) Total Protein 6.3 g/dL (6.4-8.2) Albumin 3.2 g/dL (3.4-5.0) Albumin/Globulin Ratio 1.0 (1.0-1.7) Laboratory Tests Test 12/06/18 08:46 12/06/18 17:55 12/07/18 00:20 12/07/18 03:05 White Blood Count 14.7 x10^3/uL (4.0-11.0) Red Blood Count 3.38 x10^6/uL (4.30-5.70) Hemoglobin 10.8 g/dL (13.0-17.5) Hematocrit 32.7 % (39.0-53.0) Mean Corpuscular Volume 97 fL (79-100) Mean Corpuscular Hemoglobin 32 pg (25-35) Mean Corpuscular Hemoglobin Concent 33 g/dL (31-37) Red Cell Distribution Width 14.8 % (11.5-14.5) Platelet Count 133 x10^3/uL (140-400) Neutrophils (%) (Auto) 83 % (31-73) Lymphocytes (%) (Auto) 6 % (24-48) Monocytes (%) (Auto) 11 % (0-9) Eosinophils (%) (Auto) 1 % (0-3) Basophils (%) (Auto) 1 % (0-3) Neutrophils # (Auto) 12.1 x10^3uL (1.8-7.7) Lymphocytes # (Auto) 0.8 x10^3/uL (1.0-4.8) Monocytes # (Auto) 1.6 x10^3/uL (0.0-1.1) Eosinophils # (Auto) 0.1 x10^3/uL (0.0-0.7) Basophils # (Auto) 0.1 x10^3/uL (0.0-0.2) Prothrombin Time 25.2 SEC (11.7-14.0) 29.2 SEC (11.7-14.0) Prothromb Time International Ratio 2.3 (0.8-1.1) 2.8 (0.8-1.1) Urine Collection Type Unknown Urine Color Yellow Urine Clarity Clear Urine pH 5.0 Urine Specific Melvin 1.010 Urine Protein Negative mg/dL (NEG-TRACE) Urine Glucose (UA) Negative mg/dL (NEG) Urine Ketones (Stick) Negative mg/dL (NEG) Urine Blood Negative (NEG) Urine Nitrite Negative (NEG) Urine Bilirubin Negative (NEG) Urine Urobilinogen Dipstick 0.2 mg/dL (0.2 mg/dL) Urine Leukocyte Esterase Negative (NEG) Urine RBC 0 /HPF (0-2) Urine WBC 0 /HPF (0-4) Urine Squamous Epithelial Cells Few /LPF Urine Bacteria 0 /HPF (0-FEW) Urine Mucus Slight /LPF Sodium Level 142 mmol/L (136-145) 143 mmol/L (136-145) Potassium Level 5.1 mmol/L (3.5-5.1) 4.6 mmol/L (3.5-5.1) Chloride Level 106 mmol/L (98-107) 108 mmol/L (98-107) Carbon Dioxide Level 24 mmol/L (21-32) 25 mmol/L (21-32) Anion Gap 12 (6-14) 10 (6-14) Blood Urea Nitrogen 41 mg/dL (8-26) 48 mg/dL (8-26) Creatinine 1.6 mg/dL (0.7-1.3) 1.8 mg/dL (0.7-1.3) Estimated GFR (Cockcroft-Gault) 42.1 36.8 BUN/Creatinine Ratio 26 (6-20) Glucose Level 114 mg/dL (70-99) 217 mg/dL (70-99) Lactic Acid Level 0.9 mmol/L (0.4-2.0) Calcium Level 10.4 mg/dL (8.5-10.1) 10.4 mg/dL (8.5-10.1) Total Bilirubin 1.8 mg/dL (0.2-1.0) Aspartate Amino Transf (AST/SGOT) 30 U/L (15-37) Alanine Aminotransferase (ALT/SGPT) 37 U/L (16-63) Alkaline Phosphatase 72 U/L (46-116) Troponin I Quantitative 0.114 ng/mL (0.000-0.055) 0.120 ng/mL (0.000-0.055) 0.112 ng/mL (0.000-0.055) MU-Izo-A-Type Natriuretic Peptide 5051 pg/mL (0-449) Total Protein 6.3 g/dL (6.4-8.2) Albumin 3.2 g/dL (3.4-5.0) Albumin/Globulin Ratio 1.0 (1.0-1.7) Medications Active Scripts Medications Dose Route/Sig Max Daily Dose Days Date Category Xanax (Alprazolam) 0.5 Mg Tablet 0.5 Mg PO PRN Q6HRS PRN 12/06/18 Reported Miralax (Polyethylene Glycol 3350) 119 Gm Powder 17 Gm PO PRN DAILY PRN 12/06/18 Reported Furosemide 20 Mg Tablet 20 Mg PO DAILY 12/06/18 Reported Potassium Chloride 10 Meq Tablet.er 10 Meq PO QMWF 12/06/18 Reported Metoprolol Succinate ( Xl ) (Metoprolol Succinate) 25 Mg Tab.er.24h 12.5 Mg PO DAILY 12/06/18 Reported Duoneb 0.5-3(2.5) Mg/3 Ml (Albuterol/Ipratropium) 3 Ml Ampul.neb 3 Ml NEB TID PRN 03/16/18 Reported Ascorbic Acid 500 Mg Tablet 500 Mg PO BID 03/15/18 Reported Super B Complex-Vitamin C (B Complex With Vitamin C) 1 Each Tablet 1 Each PO 12/04/17 Reported Calcitriol 0.25 Mcg Capsule 0.25 Mcg PO QMTUWTH 05/24/16 Reported Warfarin Sodium 5 Mg Tablet 7.5 Mg PO DAILY 05/24/16 Reported Loratadine 10 Mg Tablet 10 Mg PO QHS 10/16/14 Reported Tamsulosin Hcl 0.4 Mg Cap.er.24h 0.4 Mg PO QHS 10/16/14 Reported Atorvastatin Calcium 10 Mg Tablet 10 Mg PO HS 10/16/14 Reported Flonase (Fluticasone Propionate) 16 Gm [place].susp 2 [place] NS BID 01/06/14 Reported Impression . IMPRESSION: 1. Cppgp-pp-hlvupng respiratory failure. 2. Acute exacerbation of chronic obstructive pulmonary disease. 3. Tobacco dependence, in remission. 4. Obstructive sleep apnea. 5. Elevated troponin compatible with demand ischemia. 6. Obesity. 7. Hypertension. 8. Other comorbidities including atrial fibrillation, coronary artery disease, chronic heart failure and hypertension. Plan . 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
[2018-12-07] MEDS ORDERED: POLYETHYLENE GLYCOL 3350 17 GM PACKET. PO PRN (09:00)
[2018-12-07] MEDS: FLUTICASONE 50MCG/NASAL SPRAY 16GM BOTTLE. NS SCH (09:12)
[2018-12-07] MEDS: ASCORBIC ACID 500 MG TABLET PO SCH (09:13)
[2018-12-07] MEDS: METOPROLOL SUCC 24HR ER 25 MG TAB.ER.24H. PO SCH (09:15)
[2018-12-07] MEDS: methylPREDNISolone SOD SUCC PF 125 MG/2 ML VIAL. IV SCH (09:17)
[2018-12-07] MEDS: FUROSEMIDE 20 MG/2 ML VIAL. IVP SCH (09:17)
--- NOTE | 2018-12-07 10:11 | PDOC ---
CARDIO Progress Notes Date and Time Date of Service 12/07/18 Time of Evaluation 1000 Subjective Subjective: No Chest Pain, Other (breathing much better) Vitals Vitals Vital Signs Date Time Temp Pulse Resp B/P (MAP) Pulse Ox O2 Delivery O2 Flow Rate FiO2 12/07/18 09:15 84 124/67 12/07/18 08:00 Nasal Cannula 1.0 12/07/18 07:18 96 12/07/18 07:00 97.4 18 97.4 Weight Weight [ ] Input and Output Intake and Output Intake and Output 12/07/18 07:00 Intake Total 250 ml Output Total 200 ml Balance 50 ml Intake Oral 0 ml IV Total 250 ml Output Urine Total 200 ml Laboratory Labs Laboratory Tests Test 12/06/18 17:55 12/07/18 00:20 12/07/18 03:05 Troponin I Quantitative 0.120 ng/mL (0.000-0.055) 0.112 ng/mL (0.000-0.055) Prothrombin Time 29.2 SEC (11.7-14.0) Prothromb Time International Ratio 2.8 (0.8-1.1) Sodium Level 143 mmol/L (136-145) Potassium Level 4.6 mmol/L (3.5-5.1) Chloride Level 108 mmol/L (98-107) Carbon Dioxide Level 25 mmol/L (21-32) Anion Gap 10 (6-14) Blood Urea Nitrogen 48 mg/dL (8-26) Creatinine 1.8 mg/dL (0.7-1.3) Estimated GFR (Cockcroft-Gault) 36.8 Glucose Level 217 mg/dL (70-99) Calcium Level 10.4 mg/dL (8.5-10.1) Physical Exam HEENT: Neck Supple W Full Motion Chest: Symmetric LUNGS: Other (fine expiratory wheezing) Heart: S1S2, irregularly irregular (v-paced with underlying AFIB) Abdomen: Soft N/T Extremities: No Edema Neurology: alert, oriented, follow commands Assessment Assessment 1. Acute on chronic respiratory failure with AECOPD, acute viral illness. As per pulmonary 2. Mild acute on chronic diastolic CHF. Echo 11/2018 with LVEF 50-55%. Better compensated following diuresis 3. PAFIB; 100% v-paced with underlying AFIB. rate controlled with BB. Warfarin for stroke prophylaxis. INR 2.8 4. Mild troponin elevation; initial troponin 0.1. likely demand mediated, type 2 5. SSS with PPM in situ: Biotronik. 6. HLP; statin 7. HTN: controlled 8. Chronic anemia/thrombocytopenia 9. CKD; Cr at 1.8 Recommendations Convert lasix to oral. Resume lasix MWF upon discharge Discussed 2 GM Na diet- admits to eating more fast food recently Daily weights; to call if weight gain of 2-3# overnight or 5# in 1 week. Follow up in of office with Dr. Virk 01/27/19 10:45. NICOLASA FITCH APRN Dec 07, 2018 10:11
[2018-12-07 11:00] VITALS: BP 132/68
[2018-12-07] MEDS ORDERED: DOXY100C2 PO (11:52)
[2018-12-07] MEDS ORDERED: PRED20TA PO (11:52)
--- NOTE | 2018-12-07 11:56 | PDOC3 ---
Discharge Summary Visit Information Date of Admission: Dec 06, 2018 Date of Discharge: Dec 07, 2018 Admitting Diagnosis: ACUTE COPD exacerbation, acute chf Final Diagnosis Problems Medical Problems: (1) Acute exacerbation of chronic obstructive airways diseasedisease Status: Acute (2) CHF exacerbation Status: Acute Brief Hospital Course Allergies Allergies Coded Allergies Type Severity Reaction Last Updated Verified No Known Drug Allergies 02/05/18 No Vital Signs Vital Signs Date Time Temp Pulse Resp B/P (MAP) Pulse Ox O2 Delivery O2 Flow Rate FiO2 12/07/18 11:34 97 Nasal Cannula 1.0 12/07/18 11:00 97.4 80 18 132/68 (89) 97.4 Lab Results Laboratory Tests Test 12/06/18 08:46 12/06/18 17:55 12/07/18 00:20 12/07/18 03:05 White Blood Count 14.7 x10^3/uL (4.0-11.0) Red Blood Count 3.38 x10^6/uL (4.30-5.70) Hemoglobin 10.8 g/dL (13.0-17.5) Hematocrit 32.7 % (39.0-53.0) Mean Corpuscular Volume 97 fL (79-100) Mean Corpuscular Hemoglobin 32 pg (25-35) Mean Corpuscular Hemoglobin Concent 33 g/dL (31-37) Red Cell Distribution Width 14.8 % (11.5-14.5) Platelet Count 133 x10^3/uL (140-400) Neutrophils (%) (Auto) 83 % (31-73) Lymphocytes (%) (Auto) 6 % (24-48) Monocytes (%) (Auto) 11 % (0-9) Eosinophils (%) (Auto) 1 % (0-3) Basophils (%) (Auto) 1 % (0-3) Neutrophils # (Auto) 12.1 x10^3uL (1.8-7.7) Lymphocytes # (Auto) 0.8 x10^3/uL (1.0-4.8) Monocytes # (Auto) 1.6 x10^3/uL (0.0-1.1) Eosinophils # (Auto) 0.1 x10^3/uL (0.0-0.7) Basophils # (Auto) 0.1 x10^3/uL (0.0-0.2) Prothrombin Time 25.2 SEC (11.7-14.0) 29.2 SEC (11.7-14.0) Prothromb Time International Ratio 2.3 (0.8-1.1) 2.8 (0.8-1.1) Urine Collection Type Unknown Urine Color Yellow Urine Clarity Clear Urine pH 5.0 Urine Specific [place]er 1.010 Urine Protein Negative mg/dL (NEG-TRACE) Urine Glucose (UA) Negative mg/dL (NEG) Urine Ketones (Stick) Negative mg/dL (NEG) Urine Blood Negative (NEG) Urine Nitrite Negative (NEG) Urine Bilirubin Negative (NEG) Urine Urobilinogen Dipstick 0.2 mg/dL (0.2 mg/dL) Urine Leukocyte Esterase Negative (NEG) Urine RBC 0 /HPF (0-2) Urine WBC 0 /HPF (0-4) Urine Squamous Epithelial Cells Few /LPF Urine Bacteria 0 /HPF (0-FEW) Urine Mucus Slight /LPF Sodium Level 142 mmol/L (136-145) 143 mmol/L (136-145) Potassium Level 5.1 mmol/L (3.5-5.1) 4.6 mmol/L (3.5-5.1) Chloride Level 106 mmol/L (98-107) 108 mmol/L (98-107) Carbon Dioxide Level 24 mmol/L (21-32) 25 mmol/L (21-32) Anion Gap 12 (6-14) 10 (6-14) Blood Urea Nitrogen 41 mg/dL (8-26) 48 mg/dL (8-26) Creatinine 1.6 mg/dL (0.7-1.3) 1.8 mg/dL (0.7-1.3) Estimated GFR (Cockcroft-Gault) 42.1 36.8 BUN/Creatinine Ratio 26 (6-20) Glucose Level 114 mg/dL (70-99) 217 mg/dL (70-99) Lactic Acid Level 0.9 mmol/L (0.4-2.0) Calcium Level 10.4 mg/dL (8.5-10.1) 10.4 mg/dL (8.5-10.1) Total Bilirubin 1.8 mg/dL (0.2-1.0) Aspartate Amino Transf (AST/SGOT) 30 U/L (15-37) Alanine Aminotransferase (ALT/SGPT) 37 U/L (16-63) Alkaline Phosphatase 72 U/L (46-116) Troponin I Quantitative 0.114 ng/mL (0.000-0.055) 0.120 ng/mL (0.000-0.055) 0.112 ng/mL (0.000-0.055) CA-Swq-B-Type Natriuretic Peptide 5051 pg/mL (0-449) Total Protein 6.3 g/dL (6.4-8.2) Albumin 3.2 g/dL (3.4-5.0) Albumin/Globulin Ratio 1.0 (1.0-1.7) Laboratory Tests Test 12/06/18 17:55 12/07/18 00:20 12/07/18 03:05 Troponin I Quantitative 0.120 ng/mL (0.000-0.055) 0.112 ng/mL (0.000-0.055) Prothrombin Time 29.2 SEC (11.7-14.0) Prothromb Time International Ratio 2.8 (0.8-1.1) Sodium Level 143 mmol/L (136-145) Potassium Level 4.6 mmol/L (3.5-5.1) Chloride Level 108 mmol/L (98-107) Carbon Dioxide Level 25 mmol/L (21-32) Anion Gap 10 (6-14) Blood Urea Nitrogen 48 mg/dL (8-26) Creatinine 1.8 mg/dL (0.7-1.3) Estimated GFR (Cockcroft-Gault) 36.8 Glucose Level 217 mg/dL (70-99) Calcium Level 10.4 mg/dL (8.5-10.1) Brief Hospital Course Mr Quintero is a 78yo m w/ PMHx CHF, afib, PPM, CAD, HTN, COPD who presents with shortness of breath at home for the past 3-5 days and decrease in O2 sats with activity into the 80s and upper 70s on his home pulse oximetry, was also hypoxic 84-88% in EMS, placed on O2. Reports brown sputum. Woke up this morning and states it was worse that has been. No interventions tried at home. Denies pain. Had 02 saturations of 86% on arrival to ED Unclear if weight gain, he states he thinks he actually lost a pound in the past week; feet/legs not much more edematous recently. NT-proBNP of 5051 with Cr of 1.6 and troponin I of 0.114. CXR with cardiomegaly. Mildy anemic. Calcium 10.4. Bili 1.8. He improved after 2 days of diuresis and aggressive nebulizers, rocephin, doxy, pulm consultation and cardiology consultation. Discharged on doxycycline 7 days and prednisone taper with INR check in 2 days and f/u with pulm in 1 week. General: Alert, Oriented X3, Cooperative, No acute distress HEENT: Atraumatic, PERRLA, EOMI, Mucous membr. moist/pink Lungs: Other (Bilateral wheezes and rhonci) Heart: S1S2 Abdomen: Normal bowel sounds, Soft, No tenderness, No hepatosplenomegaly, No masses Rectal Exam: not examined Extremities: No clubbing, No cyanosis, Normal pulses, No tenderness/swelling Skin: No rashes, No breakdown, No significant lesion Neuro: Normal gait, Normal speech, Strength at 5/5 X4 ext, Normal tone, Sensation intact, Cranial nerves 3-12 NL, Reflexes 2+ Psych/Mental Status: Mental status NL, Mood NL A/P: Acute Hypoxia - with significant desaturations, will check INR, on warfarin, consult pulmonology. This does not appear to be a severe CHF exacerbation, but is definitely a mild one. 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 Ejection fraction of 50-55% on most recent echocardiogram. will start IV diuresis. Defer to cardiology on further diuresis with monitoring of renal function. Paroxysmal atrial fibrillation - currently irregular on monitor. Treated with amiodarone and anticoagulation. Continue telemetry. Continue present treatment. Sick sinus syndrome and permanent pacemaker - appears to be capturing on monitor. Will monitor Hyperlipidemia - Continue medical treatment CKD - Cr 1.6, does not seem to have current JAYDON. Hypercalcemia - 10.4, will monitor Acute COPD exacerbation - will consult pulmonology, with sputum will continue antibiotics, nebs. steroids Greater than 30 minutes spent on discharge. Discharge Information Condition at Discharge: Improved Follow Up: Weeks (1) Disposition/Orders: D/C to Home Scheduled Ascorbic Acid (Ascorbic Acid) 500 Mg Tablet, 500 MG PO BID, (Reported) Entered as Reported by: Juan Mckeon on 03/15/18 1702 Last Action: Continued on 12/06/181446 by KAREEM HARRIS MD Atorvastatin Calcium (Atorvastatin Calcium) 10 Mg Tablet, 10 MG PO HS for FOR CHOLESTEROL, #30 Ref 0 (Reported) Entered as Reported by: Lynnette Angeles on 10/16/141132 Last Action: Continued on 12/06/181446 by KAREEM HARRIS MD Calcitriol (Calcitriol) 0.25 Mcg Capsule, 0.25 MCG PO QMTUWTH for supplement, (Reported) Entered as Reported by: YOVANI MOLINA on 05/24/16 2310 Last Action: Reviewed on 12/06/181132 by Lynnette Angeles Doxycycline Hyclate (Doxycycline Hyclate) 100 Mg Capsule, 1 CAP PO BID for COPD, #14 Prescribed by: KAREEM HARRIS MD on 12/07/18 115 Fluticasone Propionate (Flonase) 16 Gm [place].susp, 2 SPRAY NS BID, (Reported) Entered as Reported by: CHAVA SMALL on 01/06/143 Last Action: Continued on 12/06/181446 by KAREEM HARRIS MD Furosemide (Furosemide) 20 Mg Tablet, 20 MG PO DAILY for , (Reported) Entered as Reported by: Lynnette Angeles on 12/06/181138 Last Taken: 20 on 12/06/18 Last Action: New Order on 12/06/181138 by Lynnette Angeles Loratadine (Loratadine) 10 Mg Tablet, 10 MG PO QHS, (Reported) Entered as Reported by: Lynnette Angeles on 10/16/141132 Last Action: Converted on 12/06/181446 by KAREEM HARRIS MD Metoprolol Succinate (Metoprolol Succinate ( Xl )) 25 Mg Tab.er.24h, 12.5 MG PO DAILY for FOR HYPERTENSION, #30 Ref 0 (Reported) Entered as Reported by: Lynnette Angeles on 12/06/181132 Last Taken: 12.5 on Unknown Date & Time Last Action: Continued on 12/06/181446 by KAREEM HARRIS MD Potassium Chloride (Potassium Chloride) 10 Meq Tablet.er, 10 MEQ PO QMWF for , (Reported) Entered as Reported by: Lynnette Angeles on 12/06/181132 Last Taken: 10 on Unknown Date & Time Last Action: Continued on 12/06/181446 by AKREEM HARRIS MD Prednisone (Prednisone) 20 Mg Tablet, 2 TAB PO DAILY for COPD for 5 Days, #10 Prescribed by: KAREEM HARRIS MD on 12/07/18 1152 Tamsulosin Hcl (Tamsulosin Hcl) 0.4 Mg Cap.er.24h, 0.4 MG PO QHS, (Reported) Entered as Reported by: Lynnette Angeles on 10/16/14 113 Last Action: Continued on 12/06/181446 by KAREEM HARRIS MD Warfarin Sodium (Warfarin Sodium) 5 Mg Tablet, 7.5 MG PO DAILY for afib, (Rep orted) Entered as Reported by: YOVANI MOLINA on 05/24/16 2310 Last Action: Converted on 12/06/181446 by KAREEM HARRIS MD Scheduled PRN Alprazolam (Xanax) 0.5 Mg Tablet, 0.5 MG PO PRN Q6HRS PRN for ANXIETY / AGIT ATION, Ref 0 (Reported) Entered as Reported by: Lynnette Angeles on 12/06/181138 Last Taken: 0.5 on Unknown Date & Time Last Action: Continued on 12/06/181446 by KAREEM HARRIS MD Ipratropium/Albuterol Sulfate (Duoneb 0.5-3(2.5) Mg/3 Ml) 3 Ml Ampul.neb, 3 ML NEB TID PRN for SHORTNESS OF BREATH, (Reported) Entered as Reported by: Juan Mckeon on 03/16/18 0800 Last Action: Edited on 12/06/181132 by Lynnette Angeles Polyethylene Glycol 3350 (Miralax) 119 Gm Powder, 17 GM PO PRN DAILY PRN for CONSTIPATION, #527 (Reported) Entered as Reported by: Lynnette Angeles on 12/06/181138 Last Taken: 17 on Unknown Date & Time Last Action: Converted on 12/06/181446 by KAREEM HARRIS MD Miscellaneous Medications B Complex With Vitamin C (Super B Complex-Vitamin C) 1 Each Tablet, 1 EACH PO, (Reported) Entered as Reported by: SHERRY WOODSON on 12/04/171946 Last Action: Reviewed on 12/06/18 1133 by KAREEM Truong MD Dec 07, 2018 11:56
[2018-12-07] MEDS: cefTRIAXone IV Push 1 GM VIAL. IVP SCH (13:53)
--- NOTE | 2018-12-07 14:20 | NUR ---
Discharge Note: JOSEP SIMS [address] [place] [address] Discharge instructions and discharge home medications reviewed with Spouse and a copy given. All questions have been answered and understanding verbalized. The following instructions and handouts were given: CHF info, COPD info, doxy & prednisone info, discharge instructions. Discontinued lines and drains: Peripheral IV intact. Patient discharged to Home or Self Care with Spouse via Wheelchair at 1420.
[2018-12-07] MEDS ORDERED: CETIRIZINE HCL 10 MG TABLET. PO SCH (21:00)
[2018-12-08] MEDS ORDERED: FUROSEMIDE 40 MG TABLET. PO SCH (09:00)
== END 2018-12-07 14:20 | disposition home or self-care (01) | DRG 291 ==
LOC: ER 08:13 → 2 NORTH 10:07
PROVIDERS: ADMIT Internal Medicine; ATTEND Internal Medicine
DX: I13.0 Hypertensive heart and chronic kidney disease with heart failure and stage 1 through stage 4 chronic kidney disease, or unspecified chronic kidney disease (principal); I50.33 Acute on chronic diastolic (congestive) heart failure; J96.21 Acute and chronic respiratory failure with hypoxia; J44.1 Chronic obstructive pulmonary disease with (acute) exacerbation; I24.8 Other forms of acute ischemic heart disease; B34.9 Viral infection, unspecified; I42.9 Cardiomyopathy, unspecified; D64.9 Anemia, unspecified; D69.6 Thrombocytopenia, unspecified; E66.9 Obesity, unspecified; E78.5 Hyperlipidemia, unspecified; E83.52 Hypercalcemia; F17.201 Nicotine dependence, unspecified, in remission; G47.33 Obstructive sleep apnea (adult) (pediatric); M19.90 Unspecified osteoarthritis, unspecified site; I25.10 Atherosclerotic heart disease of native coronary artery without angina pectoris; I48.0 Paroxysmal atrial fibrillation; I48.2 Chronic atrial fibrillation; N18.9 Chronic kidney disease, unspecified; Z90.49 Acquired absence of other specified parts of digestive tract; Z95.0 Presence of cardiac pacemaker; Z99.81 Dependence on supplemental oxygen; F32.9 Major depressive disorder, single episode, unspecified; F41.9 Anxiety disorder, unspecified; Z87.01 Personal history of pneumonia (recurrent)
CPT/HCPCS: 36415; 71046; 80048; 80053; 81001; 83605; 83880; 84484; 85025; 85610; 87040; 87070; 87205; 93005; 94640; 94644; 96365; 96375; J0456; J0696; J1940; J2930; J3490; J7050; J7613; J7620; 99285-25; J7030

== ENCOUNTER 2019-03-12 05:29 | Inpatient (IN) | payer MEDICARE, OTHER ==
[~2019-03-12] VITALS: Ht 193 cm; Wt 108.2 kg
[~2019-03-12 05:29] MED LIST changes: -ACLI400A2 IH; +ACLI400A3 IH; +ALPR0.5T PO; +AMOX1TAB11 PO; +DOXY100C2 PO; +GUAI5SYR PO; +MAGN400C PO; +POLY119P4 PO; +POTA10TA12 PO; +PRED20TA PO; +RANI150C PO; +ROFL500T7 PO; +TRAZ-118 PO
[2019-03-12] MEDS ORDERED: IV NORMAL SALINE 1000ML BAG 1,000 ML IV ONE ×2 (06:00→08:45)
--- NOTE | 2019-03-12 06:18 | PHYS DOC ---
Past Medical History Past Medical History: A-Fib, CHF, COPD, High Cholesterol, Hypertension, Pneumonia, Renal Disease, Renal Failure, UTI, Other Additional Past Medical Histor: SEASONAL ALLERGIES, PACEMAKER, SLEEP APNEA (SUSSY MCNEIL DO) Past Medical History Limited due to altered mental status (SUSSY MCNEIL DO) Past Surgical History: Cholecystectomy, Pacemaker, Tonsillectomy Additional Past Surgical Histo: metal in R. hand/ finger,2 stents in left leg,STONES REMOVED FROM LIVER (SUSSY MCNEIL DO) Past Surgical History Limited due to altered mental status (SUSSY MCNEIL DO) Smoking: Quit Greater Than 1 Year Alcohol Use: Rarely Drug Use: None (SUSSY MCNEIL DO) Social History Limited due to altered mental status (SUSSY MCNEIL DO) Adult General Chief Complaint Chief Complaint: ALTERED MENTAL STATUS HPI HPI Patient is a 78 year old male with complex medical hx who presents with confusion. Pt's reports that he has been discharged from our facility on 03/08 for similar condition. During his most recent hospital stay, he was treated for pneumonia and transferred to rehab for further care. However, pt's reports that he has been more confused at night. He would talk to himself and seeing things that other people cannot see. His decided to bring him back to the hospital for further evaluation. Pt is alert and oriented at bedside and denies any chest pain, N/V, UTI symptoms. History of present illness limited due to history of altered mental status. (SUSSY MCNEIL DO) Review of Systems Review of Systems Constitutional: Denies fever or chills Eyes: Denies redness or eye pain HENT: Denies nasal congestion or sore throat Respiratory: Denies cough or shortness of breath Cardiovascular: Denies chest pain or palpitations GI: Denies abdominal pain, nausea, or vomiting : Denies dysuria or hematuria Musculoskeletal: Denies back pain or joint pain Integument: Denies rash or skin lesions Neurologic: Denies headache, focal weakness or sensory changes Complete systems were reviewed and found to be within normal limits, except as documented in this note. (SUSSY MCNEIL DO) Current Medications Current Medications Current Medications Medications (Trade) Dose Ordered Sig/Patricia Start Time Stop Time Status Last Admin Dose Admin Sodium Chloride 1,000 ml @ 1,000 mls/hr 1X ONCE 03/12/19 08:45 03/12/19 09:44 (BIRGIT CLIFFORD DO) Allergies Allergies Allergies Coded Allergies Type Severity Reaction Last Updated Verified No Known Drug Allergies 02/05/18 No (BIRGIT CLIFFORD DO) Physical Exam Physical Exam Constitutional: Well developed, well nourished, no acute distress, pale HENT: Normocephalic, atraumatic, oropharynx moist Eyes: PERRL, EOMI, conjunctiva normal, no discharge Neck: Normal range of motion, no tenderness, supple, no meningeal signs Cardiovascular: regular rhythm, tachycardic Lungs & Thorax: tachypneic, decreased in bilateral breath sounds, no wheezing. Abdomen: Soft, no tenderness Skin: Warm, dry, no erythema, no rash Back: No tenderness, no CVA tenderness Extremities: No tenderness, ROM intact Neurologic: Alert and oriented X 3, no focal deficits noted (SUSSY MCNEIL DO) Current Patient Data Vital Signs Vital Signs Date Time Temp Pulse Resp B/P (MAP) Pulse Ox O2 Delivery O2 Flow Rate FiO2 03/12/19 07:30 94 20 100 03/12/19 05:29 98.7 148/90 (109) Nasal Cannula 3.0 98.7 (BIRGIT CLIFFORD DO) Lab Values Laboratory Tests Test 03/12/19 05:55 03/12/19 05:58 03/12/19 06:10 03/12/19 06:45 White Blood Count 8.8 x10^3/uL (4.0-11.0) Red Blood Count 2.93 x10^6/uL (4.30-5.70) L Hemoglobin 9.2 g/dL (13.0-17.5) L Hematocrit 27.8 % (39.0-53.0) L Mean Corpuscular Volume 95 fL (79-100) Mean Corpuscular Hemoglobin 31 pg (25-35) Mean Corpuscular Hemoglobin Concent 33 g/dL (31-37) Red Cell Distribution Width 15.0 % (11.5-14.5) H Platelet Count 207 x10^3/uL (140-400) Neutrophils (%) (Auto) 78 % (31-73) H Lymphocytes (%) (Auto) 9 % (24-48) L Monocytes (%) (Auto) 11 % (0-9) H Eosinophils (%) (Auto) 2 % (0-3) Basophils (%) (Auto) 1 % (0-3) Neutrophils # (Auto) 6.9 x10^3/uL (1.8-7.7) Lymphocytes # (Auto) 0.8 x10^3/uL (1.0-4.8) L Monocytes # (Auto) 0.9 x10^3/uL (0.0-1.1) Eosinophils # (Auto) 0.2 x10^3/uL (0.0-0.7) Basophils # (Auto) 0.1 x10^3/uL (0.0-0.2) Prothrombin Time 23.1 SEC (11.7-14.0) H Prothrombin Time INR 2.1 (0.8-1.1) H Activated Partial Thromboplast Time 41 SEC (24-38) H Sodium Level 147 mmol/L (136-145) H Potassium Level 4.5 mmol/L (3.5-5.1) Chloride Level 108 mmol/L (98-107) H Carbon Dioxide Level 33 mmol/L (21-32) H Anion Gap 6 (6-14) Blood Urea Nitrogen 39 mg/dL (8-26) H Creatinine 1.5 mg/dL (0.7-1.3) H Estimated GFR (Cockcroft-Gault) 45.4 BUN/Creatinine Ratio 26 (6-20) H Glucose Level 109 mg/dL (70-99) H Lactic Acid Level 1.0 mmol/L (0.4-2.0) Calcium Level 11.6 mg/dL (8.5-10.1) H Magnesium Level 1.8 mg/dL (1.8-2.4) Total Bilirubin 0.7 mg/dL (0.2-1.0) Aspartate Amino Transferase (AST) 33 U/L (15-37) Alanine Aminotransferase (ALT) 32 U/L (16-63) Alkaline Phosphatase 82 U/L (46-116) Total Protein 6.3 g/dL (6.4-8.2) L Albumin 2.8 g/dL (3.4-5.0) L Albumin/Globulin Ratio 0.8 (1.0-1.7) L Glucose (Fingerstick) 104 mg/dL (70-99) H Urine Collection Type Unknown Urine Color Yellow Urine Clarity Clear Urine pH 6.0 Urine Specific [place] 1.020 Urine Protein Negative mg/dL (NEG-TRACE) Urine Glucose (UA) Negative mg/dL (NEG) Urine Ketones (Stick) Negative mg/dL (NEG) Urine Blood Negative (NEG) Urine Nitrite Negative (NEG) Urine Bilirubin Negative (NEG) Urine Urobilinogen Dipstick 1.0 mg/dL (0.2 mg/dL) Urine Leukocyte Esterase Negative (NEG) Urine RBC 0 /HPF (0-2) Urine WBC Occ /HPF (0-4) Urine Squamous Epithelial Cells Few /LPF Urine Bacteria 0 /HPF (0-FEW) Urine Opiates Screen Neg (NEG) Urine Methadone Screen Neg (NEG) Urine Barbiturates Neg (NEG) Urine Phencyclidine Screen Neg (NEG) Urine Amphetamine/Methamphetamine Neg (NEG) Urine Benzodiazepines Screen Neg (NEG) Urine Cocaine Screen Neg (NEG) Urine Cannabinoids Screen Neg (NEG) Urine Ethyl Alcohol Neg (NEG) Ammonia 35 mcmol/L (11-34) H Laboratory Tests 03/12/19 05:55 Laboratory Tests 03/12/19 05:55 (BIRGIT CLIFFORD DO) EKG EKG [] (SUSSY MCNEIL DO) Radiology/Procedures Radiology/Procedures [] (SUSSY MCNEIL DO) Radiology/Procedures [place] [id number] [place] [address] IMAGING REPORT Signed PATIENT: JOSEP SIMS ACCOUNT: [id number] : 1940 LOCATION: ER AGE: 78 SEX: M EXAM STATUS: REG ER ORD. PHYSICIAN: SUSSY MCNEIL DO REASON: altered mental status PROCEDURE: CT HEAD AND CERVICAL SPINE WO CT brain without contrast, CT cervical spine without contrast. HISTORY: Altered mental status. CT scan of the brain was done without contrast. Sinuses are clear. There is no intracranial hemorrhage or subdural hematoma. Ventricles are normal in size. There is no mass or shift of the midline. There is mild mucosal thickening in ethmoid sinuses. There is no skull fracture. An acute CVA is not identified. IMPRESSION: 1. No intracranial hemorrhage or acute finding noted. End impression CT cervical spine Axial CT images were obtained to the cervical spine. Sagittal and coronal reconstructed images were reviewed. There are emphysematous changes in the upper lobes of the lungs. An acute C-spine fracture is not identified. There is facet arthritis at multiple levels mainly on the right. There is foraminal narrowing at multiple levels including C3-4, C4-5 and C5-C6 on the right and on the left. There is also foraminal stenosis at C6-7 on the left. An acute fracture is not identified. There is evidence of spinal stenosis and lateral recess stenosis secondary to spurring on the cervical vertebra.. IMPRESSION: 1. Extensive degenerative changes in the cervical spine. 2. No acute C-spine fracture. PQRS Compliance Statement: One or more of the following individualized dose reduction techniques were utilized for this examination: 1. Automated exposure control 2. Adjustment of the mA and/or kV according to patient size 3. Use of iterative reconstruction technique Electronically signed by: Benny Solano MD (03/12/2019 6:49 AM) [facility] [place] DICTATED and SIGNED BY: BENNY SOLANO MD DATE: 03/12/19 0649 [facility] [address] [place] [address] IMAGING REPORT Signed PATIENT: JOSEP SIMS ACCOUNT: [id number] : 1940 LOCATION: ER AGE: 78 SEX: M EXAM STATUS: REG ER ORD. PHYSICIAN: SUSSY MCNEIL DO REASON: altered mental status PROCEDURE: CHEST AP ONLY AP chest. HISTORY: Altered mental status. AP view was taken of the chest. Comparison is made with recent studies. The heart is enlarged. There are atrial and ventricular pacing lead. There are hazy areas of atelectasis or infiltrate in the right lung. There has been mild worsening compared to the recent study. IMPRESSION: 1. Hazy infiltrates or edema with mild worsening from the recent exam. 2. Pacemaker unchanged. Electronically signed by: Benny Solano MD (03/12/2019 6:37 AM) [facility] [place] DICTATED and SIGNED BY: BENNY SOLANO MD DATE: 03/12/19 0637 (BIRGIT CLIFFORD DO) Course & Med Decision Making Course & Med Decision Making Patient presents with history of present illness and physical exam aren't for nocturnal delirium. Patient appears to be alert and oriented �3 at this time. History of recent admission for pneumonia and is currently residing at rehabilitation facility. No history of recent trauma. Family concern for possible continued infection despite patient's use of Augmentin. Labs obtained and pending. CT head/cervical spine and chest x-ray pending. Sign out given to Dr. Clifford for further evaluation and final disposition. Discussed current findings and plan with patient and family, who acknowledge understanding and agreement. (SUSSY MCNEIL DO) Course & Med Decision Making Patient appeared to be dehydrated, his calcium level elevated, retained CO2 as well (BIRGIT CLIFFORD DO) Dragon Disclaimer Dragon Disclaimer This electronic medical record was generated, in whole or in part, using a voice recognition dictation system. (SUSSY MCNEIL DO) Departure Departure Impression: Primary Impression: Delirium Additional Impressions: Dehydration Hypercalcemia Disposition: ADMITTED INPATIENT Admitting Physician: MILLER (DR. BYRD) (BIRGIT CLIFFORD DO) Condition: STABLE Referrals: EVIN BAGLEY MD (PCP) Problem Qualifiers SUSSY MCNEIL DO Mar 12, 2019 06:18 BIRGIT CLIFFORD DO Mar 12, 2019 08:17
[2019-03-12 06:32] LABS: BARBITURATES NEG (NEG); BENZODIAZEPINES NEG (NEG); CANNABINOIDS NEG (NEG); COCAINE NEG (NEG); METHADONE NEG (NEG); OPIATES NEG (NEG); PHENCYCLIDINE NEG (NEG)
[2019-03-12 06:32] LABS: BASO # 0.1 x10^3/uL (0.0-0.2); BASO % 1 % (0-3); CALCIUM 11.6 mg/dL (8.5-10.1); CREATININE 1.5 mg/dL (0.7-1.3); EOS # 0.2 x10^3/uL (0.0-0.7); EOS % 2 % (0-3); GFR 45.4; HEMATOCRIT 27.8 % (39.0-53.0); HEMOGLOBIN 9.2 g/dL (13.0-17.5); LYMPH # 0.8 x10^3/uL (1.0-4.8); LYMPH % 9 % (24-48); MEAN CORPUSCULAR HEMOGLOBIN 31 pg (25-35); MEAN CORPUSCULAR HGB CONC 33 g/dL (31-37); MEAN CORPUSCULAR VOLUME 95 fL (79-100); MONO # 0.9 x10^3/uL (0.0-1.1); MONO % 11 % (0-9); NEUT # 6.9 x10^3/uL (1.8-7.7); NEUT % 78 % (31-73); PLATELET COUNT 207 x10^3/uL (140-400); POTASSIUM 4.5 mmol/L (3.5-5.1); RED BLOOD COUNT 2.93 x10^6/uL (4.30-5.70); WHITE BLOOD COUNT 8.8 x10^3/uL (4.0-11.0)
[2019-03-12 06:33] LABS: AMPHETAMINE/METHAMPHETAMINE NEG (NEG)
[2019-03-12 06:38] LABS: ALBUMIN 2.8 g/dL (3.4-5.0); ALBUMIN/GLOBULIN RATIO 0.8 (1.0-1.7); MAGNESIUM 1.8 mg/dL (1.8-2.4); TOTAL BILIRUBIN 0.7 mg/dL (0.2-1.0); TOTAL PROTEIN 6.3 g/dL (6.4-8.2)
[2019-03-12 06:40] LABS: BILIRUBIN,URINE NEGATIVE (NEG); CLARITY,URINE CLEAR; COLOR,URINE YELLOW; NITRITE,URINE NEGATIVE (NEG); PROTEIN,URINE NEGATIVE (NEG-TRACE)
[2019-03-12 06:40] LABS: PROTHROMBIN TIME PATIENT 23.1 SEC (11.7-14.0)
--- NOTE | 2019-03-12 06:40 | RAD ---
AP chest. HISTORY: Altered mental status. AP view was taken of the chest. Comparison is made with recent studies. The heart is enlarged. There are atrial and ventricular pacing lead. There are hazy areas of atelectasis or infiltrate in the right lung. There has been mild worsening compared to the recent study. IMPRESSION: 1. Hazy infiltrates or edema with mild worsening from the recent exam. 2. Pacemaker unchanged. Electronically signed by: Benny Solano MD (03/12/2019 6:37 AM) [facility]
[2019-03-12 06:51] LABS: BACTERIA,URINE 0 /HPF (0-FEW); RBC,URINE 0 /HPF (0-2); SQUAMOUS EPITHELIAL CELL,UR FEW /LPF; WBC,URINE OCC /HPF (0-4)
--- NOTE | 2019-03-12 06:51 | RAD ---
CT brain without contrast, CT cervical spine without contrast. HISTORY: Altered mental status. CT scan of the brain was done without contrast. Sinuses are clear. There is no intracranial hemorrhage or subdural hematoma. Ventricles are normal in size. There is no mass or shift of the midline. There is mild mucosal thickening in ethmoid sinuses. There is no skull fracture. An acute CVA is not identified. IMPRESSION: 1. No intracranial hemorrhage or acute finding noted. End impression CT cervical spine Axial CT images were obtained to the cervical spine. Sagittal and coronal reconstructed images were reviewed. There are emphysematous changes in the upper lobes of the lungs. An acute C-spine fracture is not identified. There is facet arthritis at multiple levels mainly on the right. There is foraminal narrowing at multiple levels including C3-4, C4-5 and C5-C6 on the right and on the left. There is also foraminal stenosis at C6-7 on the left. An acute fracture is not identified. There is evidence of spinal stenosis and lateral recess stenosis secondary to spurring on the cervical vertebra.. IMPRESSION: 1. Extensive degenerative changes in the cervical spine. 2. No acute C-spine fracture. PQRS Compliance Statement: One or more of the following individualized dose reduction techniques were utilized for this examination: 1. Automated exposure control 2. Adjustment of the mA and/or kV according to patient size 3. Use of iterative reconstruction technique Electronically signed by: Benny Solano MD (03/12/2019 6:49 AM) [facility]
[2019-03-12] MEDS ORDERED: ONDANSETRON PF 4 MG/2 ML VIAL. IV PRN (08:45)
--- NOTE | 2019-03-12 09:44 | PDOC1 ---
History and Physical Date of Admission Date of Admission DATE: 03/12/19 TIME: 09:42 Identification/Chief Complaint Chief Complaint seen in er , 78 year old male with complex medical hx who presents with confusion. Pt's reports that he has been discharged from our facility on 03/08 for similar condition. During his most recent hospital stay, he was treated for pneumonia and transferred to rehab for further care. However, pt's reports that he has been more confused at night. He has talked to himself and seeing things Past Medical History Past Medical History Past Medical History Cardiovascular: AFIB, CAD, CHF, HTN, Hyperlipidemia, Other Pulmonary: COPD, Pneumonia CENTRAL NERVOUS SYSTEM: Other GI: Constipation, Hemorrhoids Heme/Onc: Anemia NOS Hepatobiliary: No pertinent hx Psych: Anxiety, Depression Musculoskeletal: Osteoarthritis Rheumatologic: No pertinent hx Infectious disease: No pertinent hx Renal/: Chronic renal insuff, Benign prostatic enlarg. Endocrine: No pertinent hx Past Surgical History Past Surgical History: Pacemaker, Cholecystectomy, Cataract Removal, Hernia Repair Family History Family History: Heart Disease Social History Smoke: No ALCOHOL: none Drugs: None Cardiovascular: AFIB, CAD, CHF, HTN, Hyperlipidemia, Other Pulmonary: COPD, Pneumonia, Other CENTRAL NERVOUS SYSTEM: Other GI: Constipation, Hemorrhoids, Other Heme/Onc: Anemia NOS Hepatobiliary: No pertinent hx Psych: Anxiety, Depression Musculoskeletal: Osteoarthritis Rheumatologic: No pertinent hx Infectious disease: No pertinent hx Renal/: Chronic renal insuff, Benign prostatic enlarg., Other Endocrine: No pertinent hx Past Surgical History Past Surgical History: Pacemaker, Cholecystectomy, Cataract Removal, Hernia Repair, Other Family History Family History: Heart Disease Social History Smoke: Quit ALCOHOL: none Drugs: None Current Problem List Problem List Problems Medical Problems: (1) Dehydration Status: Acute (2) Delirium Status: Acute (3) Hypercalcemia Status: Acute Current Medications Current Medications Current Medications Sodium Chloride 1,000 ml @ 1,000 mls/hr 1X ONCE IV Last administered on 03/12/19at 06:47; Start 03/12/19 at 06:00; Stop 03/12/19 at 06:59; Status DC Sodium Chloride 1,000 ml @ 1,000 mls/hr 1X ONCE IV ; Start 03/12/19 at 08:45; Stop 03/12/19 at 09:44 Ondansetron HCl (Zofran) 4 mg PRN Q8HRS PRN IV NAUSEA/VOMITING; Start 03/12/19 at 08:45; Stop 03/13/19 at 08:44 Active Scripts Active Daliresp (Roflumilast) 500 Mcg Tablet 500 Mcg PO DAILY Guaifenesin Dm Syrup (Guaifenesin/Dextromethorphan) 5 Ml Syrup 10 Ml PO PRN Q6HRS PRN 30 Days Furosemide 40 Mg Tablet 40 Mg PO DAILY Amox Tr-K Clv 875-125 Mg Tab (Amoxicillin/Potassium Clav) 1 Each Tablet 1 Tab PO BID Xanax (Alprazolam) 0.5 Mg Tablet 0.5 Mg PO PRN Q6HRS PRN Reported Trazodone Hcl 50 Mg Tablet 50 Mg PO HS Ranitidine Hcl 150 Mg Capsule 150 Mg PO DAILY Magnesium (Magnesium Oxide) 400 Mg Capsule 400 Mg PO DAILY Miralax (Polyethylene Glycol 3350) 119 Gm Powder 17 Gm PO PRN DAILY PRN Metoprolol Succinate ( Xl ) (Metoprolol Succinate) 25 Mg Tab.er.24h 12.5 Mg PO DAILY Duoneb 0.5-3(2.5) Mg/3 Ml (Albuterol/Ipratropium) 3 Ml Ampul.neb 3 Ml NEB QID Ascorbic Acid 500 Mg Tablet 500 Mg PO BID Super B Complex-Vitamin C (B Complex With Vitamin C) 1 Each Tablet 1 Each PO Calcitriol 0.25 Mcg Capsule 0.25 Mcg PO , Warfarin Sodium 5 Mg Tablet 7.5 Mg PO DAILY Loratadine 10 Mg Tablet 10 Mg PO QHS Tamsulosin Hcl 0.4 Mg Cap.er.24h 0.4 Mg PO QHS Atorvastatin Calcium 10 Mg Tablet 10 Mg PO HS Flonase (Fluticasone Propionate) 16 Gm [place].susp 2 [place] NS BID Allergies Allergies: Coded Allergies: No Known Drug Allergies (Unverified , 02/05/18) ROS Review of System Review of Systems Review of Systems Constitutional: Denies fever or chills Eyes: Denies redness or eye pain HENT: Denies nasal congestion or sore throat Respiratory: Denies cough pos // shortness of breath Cardiovascular: Denies chest pain or palpitations GI: Denies abdominal pain, nausea, or vomiting : Denies dysuria or hematuria Musculoskeletal: Denies back pain or joint pain Integument: Denies rash or skin lesions Neurologic: Denies headache, focal weakness or sensory changes 14 pt systems were reviewed and found to be within normal limits, except as documented . Physical Exam Physical Exam Physical Exam Physical Exam Constitutional: Well developed, well nourished, mild acute acute distress, pale HENT: Normocephalic, atraumatic, oropharynx moist Eyes: PERRL, EOMI, conjunctiva normal, no discharge Neck: Normal range of motion, no tenderness, supple, no meningeal signs Cardiovascular: regular rhythm, tachycardic Lungs & Thorax: tachypneic, decreased bilateral breath sounds, no wheezing. Abdomen: Soft, no tenderness Skin: Warm, dry, no erythema, no rash Back: No tenderness, no CVA tenderness Extremities: No tenderness, ROM intact Neurologic: Alert and oriented X 3, no focal deficits noted General: Alert, Cooperative, mild distress HEENT: Atraumatic Abdomen: Normal bowel sounds, Soft Rectal Exam: not examined Neuro: Cranial nerves 3-12 NL Psych/Mental Status: Other (mild encephalopathy) Vitals Vitals Vital Signs Date Time Temp Pulse Resp B/P (MAP) Pulse Ox O2 Delivery O2 Flow Rate FiO2 03/12/19 08:30 92 24 100 03/12/19 05:29 98.7 148/90 (109) Nasal Cannula 3.0 98.7 Labs Labs Laboratory Tests Test 03/12/19 05:55 03/12/19 05:58 03/12/19 06:10 03/12/19 06:45 White Blood Count 8.8 x10^3/uL (4.0-11.0) Red Blood Count 2.93 x10^6/uL (4.30-5.70) Hemoglobin 9.2 g/dL (13.0-17.5) Hematocrit 27.8 % (39.0-53.0) Mean Corpuscular Volume 95 fL (79-100) Mean Corpuscular Hemoglobin 31 pg (25-35) Mean Corpuscular Hemoglobin Concent 33 g/dL (31-37) Red Cell Distribution Width 15.0 % (11.5-14.5) Platelet Count 207 x10^3/uL (140-400) Neutrophils (%) (Auto) 78 % (31-73) Lymphocytes (%) (Auto) 9 % (24-48) Monocytes (%) (Auto) 11 % (0-9) Eosinophils (%) (Auto) 2 % (0-3) Basophils (%) (Auto) 1 % (0-3) Neutrophils # (Auto) 6.9 x10^3/uL (1.8-7.7) Lymphocytes # (Auto) 0.8 x10^3/uL (1.0-4.8) Monocytes # (Auto) 0.9 x10^3/uL (0.0-1.1) Eosinophils # (Auto) 0.2 x10^3/uL (0.0-0.7) Basophils # (Auto) 0.1 x10^3/uL (0.0-0.2) Prothrombin Time 23.1 SEC (11.7-14.0) Prothromb Time International Ratio 2.1 (0.8-1.1) Activated Partial Thromboplast Time 41 SEC (24-38) Sodium Level 147 mmol/L (136-145) Potassium Level 4.5 mmol/L (3.5-5.1) Chloride Level 108 mmol/L (98-107) Carbon Dioxide Level 33 mmol/L (21-32) Anion Gap 6 (6-14) Blood Urea Nitrogen 39 mg/dL (8-26) Creatinine 1.5 mg/dL (0.7-1.3) Estimated GFR (Cockcroft-Gault) 45.4 BUN/Creatinine Ratio 26 (6-20) Glucose Level 109 mg/dL (70-99) Lactic Acid Level 1.0 mmol/L (0.4-2.0) Calcium Level 11.6 mg/dL (8.5-10.1) Magnesium Level 1.8 mg/dL (1.8-2.4) Total Bilirubin 0.7 mg/dL (0.2-1.0) Aspartate Amino Transf (AST/SGOT) 33 U/L (15-37) Alanine Aminotransferase (ALT/SGPT) 32 U/L (16-63) Alkaline Phosphatase 82 U/L (46-116) Total Protein 6.3 g/dL (6.4-8.2) Albumin 2.8 g/dL (3.4-5.0) Albumin/Globulin Ratio 0.8 (1.0-1.7) Glucose (Fingerstick) 104 mg/dL (70-99) Urine Collection Type Unknown Urine Color Yellow Urine Clarity Clear Urine pH 6.0 Urine Specific [place] 1.020 Urine Protein Negative mg/dL (NEG-TRACE) Urine Glucose (UA) Negative mg/dL (NEG) Urine Ketones (Stick) Negative mg/dL (NEG) Urine Blood Negative (NEG) Urine Nitrite Negative (NEG) Urine Bilirubin Negative (NEG) Urine Urobilinogen Dipstick 1.0 mg/dL (0.2 mg/dL) Urine Leukocyte Esterase Negative (NEG) Urine RBC 0 /HPF (0-2) Urine WBC Occ /HPF (0-4) Urine Squamous Epithelial Cells Few /LPF Urine Bacteria 0 /HPF (0-FEW) Urine Opiates Screen Neg (NEG) Urine Methadone Screen Neg (NEG) Urine Barbiturates Neg (NEG) Urine Phencyclidine Screen Neg (NEG) Urine Amphetamine/Methamphetamine Neg (NEG) Urine Benzodiazepines Screen Neg (NEG) Urine Cocaine Screen Neg (NEG) Urine Cannabinoids Screen Neg (NEG) Urine Ethyl Alcohol Neg (NEG) Ammonia 35 mcmol/L (11-34) Laboratory Tests Test 03/12/19 05:55 03/12/19 05:58 03/12/19 06:10 03/12/19 06:45 White Blood Count 8.8 x10^3/uL (4.0-11.0) Red Blood Count 2.93 x10^6/uL (4.30-5.70) Hemoglobin 9.2 g/dL (13.0-17.5) Hematocrit 27.8 % (39.0-53.0) Mean Corpuscular Volume 95 fL (79-100) Mean Corpuscular Hemoglobin 31 pg (25-35) Mean Corpuscular Hemoglobin Concent 33 g/dL (31-37) Red Cell Distribution Width 15.0 % (11.5-14.5) Platelet Count 207 x10^3/uL (140-400) Neutrophils (%) (Auto) 78 % (31-73) Lymphocytes (%) (Auto) 9 % (24-48) Monocytes (%) (Auto) 11 % (0-9) Eosinophils (%) (Auto) 2 % (0-3) Basophils (%) (Auto) 1 % (0-3) Neutrophils # (Auto) 6.9 x10^3/uL (1.8-7.7) Lymphocytes # (Auto) 0.8 x10^3/uL (1.0-4.8) Monocytes # (Auto) 0.9 x10^3/uL (0.0-1.1) Eosinophils # (Auto) 0.2 x10^3/uL (0.0-0.7) Basophils # (Auto) 0.1 x10^3/uL (0.0-0.2) Prothrombin Time 23.1 SEC (11.7-14.0) Prothromb Time International Ratio 2.1 (0.8-1.1) Activated Partial Thromboplast Time 41 SEC (24-38) Sodium Level 147 mmol/L (136-145) Potassium Level 4.5 mmol/L (3.5-5.1) Chloride Level 108 mmol/L (98-107) Carbon Dioxide Level 33 mmol/L (21-32) Anion Gap 6 (6-14) Blood Urea Nitrogen 39 mg/dL (8-26) Creatinine 1.5 mg/dL (0.7-1.3) Estimated GFR (Cockcroft-Gault) 45.4 BUN/Creatinine Ratio 26 (6-20) Glucose Level 109 mg/dL (70-99) Lactic Acid Level 1.0 mmol/L (0.4-2.0) Calcium Level 11.6 mg/dL (8.5-10.1) Magnesium Level 1.8 mg/dL (1.8-2.4) Total Bilirubin 0.7 mg/dL (0.2-1.0) Aspartate Amino Transf (AST/SGOT) 33 U/L (15-37) Alanine Aminotransferase (ALT/SGPT) 32 U/L (16-63) Alkaline Phosphatase 82 U/L (46-116) Total Protein 6.3 g/dL (6.4-8.2) Albumin 2.8 g/dL (3.4-5.0) Albumin/Globulin Ratio 0.8 (1.0-1.7) Glucose (Fingerstick) 104 mg/dL (70-99) Urine Collection Type Unknown Urine Color Yellow Urine Clarity Clear Urine pH 6.0 Urine Specific [place] 1.020 Urine Protein Negative mg/dL (NEG-TRACE) Urine Glucose (UA) Negative mg/dL (NEG) Urine Ketones (Stick) Negative mg/dL (NEG) Urine Blood Negative (NEG) Urine Nitrite Negative (NEG) Urine Bilirubin Negative (NEG) Urine Urobilinogen Dipstick 1.0 mg/dL (0.2 mg/dL) Urine Leukocyte Esterase Negative (NEG) Urine RBC 0 /HPF (0-2) Urine WBC Occ /HPF (0-4) Urine Squamous Epithelial Cells Few /LPF Urine Bacteria 0 /HPF (0-FEW) Urine Opiates Screen Neg (NEG) Urine Methadone Screen Neg (NEG) Urine Barbiturates Neg (NEG) Urine Phencyclidine Screen Neg (NEG) Urine Amphetamine/Methamphetamine Neg (NEG) Urine Benzodiazepines Screen Neg (NEG) Urine Cocaine Screen Neg (NEG) Urine Cannabinoids Screen Neg (NEG) Urine Ethyl Alcohol Neg (NEG) Ammonia 35 mcmol/L (11-34) Images Images Imaging Protocol IMAGE PROTOCOL: Rest Tc-99m/stress Tc-99m 1 day Rest: Stress: Viability: Radiopharm. Tc99m Sestamibi Tc99m Sestamibi Dose 10.9mCi 33mCi Duration 15min. 13min. Img Date 03/02/2019 03/02/2019 Inj-Img Time 60min. 60min. Rest Admin Site: IV - Right Antecubital Farm Equipment Engineer: BRAEDEN Ramos Stress Admin Site: IV - Right Antecubital Farm Equipment Engineer: AMANDA Palmer, DWAYNE (R)(N) STRESS DATA End Diast. Vol. 253.0ml LVEDV index BSA 108.0ml End Syst. Vol. 134.0ml LVESV index BSA 57.0ml Myocardial Mass 220.0g Eject. Fraction 47.0% Stress Scores Regional WT 1.00 Summed WT 12.00 Regional WM 0.00 Summed WM 9.00 LV Perfusion There is a moderate to large sized, basal to distal inferior wall FIXED defect suggsetive of prior infarct without active ischemia Wall Motion Mild global hypokinesis. EF 47% LV Perf. Quant 17 Seg. SSS 9.00 17 Seg. SRS 10.00 17 Seg. SDS 3.00 Stress Defect Extent (% LAD) 5.60 Rest Defect Extent (% LAD) 5.00 Rev. Defect Extent (% LAD) 0.00 Stress Defect Extent (% LCX) 36.30 Rest Defect Extent (% LCX) 66.30 Rev. Defect Extent (% LCX) 2.50 Stress Defect Extent (% RCA) 11.10 Rest Defect Extent (% RCA) 11.10 Rev. Defect Extent (% RCA) 2.20 Stress Defect Extent (% STEPHEN) 16.70 Rest Defect Extent (% STEPHEN) 20.00 Rev. Defect Extent (% STEPHEN) 1.30 Other Information Quality:Average Risk Assessment: Moderate Risk Conclusion 1. Non-diagnostic EKG due to pacing 2. FIXED inferior wall defect. 3. Mild LV dysfunction. EF 47% 4. Moderate risk study Signed by : Jovanni Muniz, Electronically Approved : 03/02/2019 12:00:16 DICTATED and SIGNED BY: JOVANNI MUNIZ MD DATE: 03/02/19 1008 HISTORY The patient is a 78 year-old male with a history of : chronic lung disease, hype rtension, dyslipidemia. INDICATION The indication(s) include : dyspnea. Heart Failure Heart Failure: Yes If Yes, Newly Diagnosed: No If Yes, HF Type: Diastolic Systolic If Yes, NYHA Class: Class III PROCEDURE NARRATIVE After appropriate informed consent the patient was brought to the catheterization laboratory. The right groin was prepped and draped in usual sterile fashion. Under 2% lidocaine local anesthesia an 8 Finnish sheath was placed in the right common femoral vein via ultrasound guidance. Next, a 7.5 Finnish PA catheter was advanced the right heart chambers and pressures and saturations were obtained. Findings: RA: 11 mmHg RV: 56/11 PA: 55/25, mean 35 mmHg PCWP: 16 mmHg Cardiac output by Arianne: 7.99 L/m Cardiac output by thermodilution: 10 L/m PA saturation 67.5 Due to the elevated pulmonary artery pressures and adenosine challenge was performed. There was no significant decrease in the mean PA pressure. This was a negative vasodilator challenge. Conclusion 1. Cor pulmonale with moderate pulmonary hypertension with a mPA pressure of 35 mmHg, pulmonary vascular resistance approximately 2.5 Garcia units 2. No significant left sided heart failure. Recommendations Aggressive Medical Therapy Signed by : Jovanni Muniz Electronically Approved : 03/04/2019 15:59:48 AP chest. HISTORY: Altered mental status. AP view was taken of the chest. Comparison is made with recent studies. The heart is enlarged. There are atrial and ventricular pacing lead. There are hazy areas of atelectasis or infiltrate in the right lung. There has been mild worsening compared to the recent study. IMPRESSION: 1. Hazy infiltrates or edema with mild worsening from the recent exam. 2. Pacemaker unchanged. Electronically signed by: Benny Solano MD (03/12/2019 6:37 AM) [facility] [place] REASON: altered mental status PROCEDURE: CT HEAD AND CERVICAL SPINE WO CT brain without contrast, CT cervical spine without contrast. HISTORY: Altered mental status. CT scan of the brain was done without contrast. Sinuses are clear. There is no intracranial hemorrhage or subdural hematoma. Ventricles are normal in size. There is no mass or shift of the midline. There is mild mucosal thickening in ethmoid sinuses. There is no skull fracture. An acute CVA is not identified. IMPRESSION: 1. No intracranial hemorrhage or acute finding noted. End impression CT cervical spine Axial CT images were obtained to the cervical spine. Sagittal and coronal reconstructed images were reviewed. There are emphysematous changes in the upper lobes of the lungs. An acute C-spine fracture is not identified. There is facet arthritis at multiple levels mainly on the right. There is foraminal narrowing at multiple levels including C3-4, C4-5 and C5-C6 on the right and on the left. There is also foraminal stenosis at C6-7 on the left. An acute fracture is not identified. There is evidence of spinal stenosis and lateral recess stenosis secondary to spurring on the cervical vertebra.. IMPRESSION: 1. Extensive degenerative changes in the cervical spine. 2. No acute C-spine fracture. VTE Prophylaxis Ordered VTE Prophylaxis Devices: Yes VTE Pharmacological Prophylaxi: Yes Assessment/Plan Assessment/Plan IMPRESSION: 1. ALTERED MENTAL STATUS LIKELY SEC TO HYPERCAPNEA ON CT , No intracranial hemorrhage or acute finding noted. 2.CHF exacerbation diastolic 3. HYpoxic respi failure , HYPERCAPNIC on BIPAP and VM Hazy infiltrates or edema with mild worsening from the recent exam. Cor pulmonale with moderate pulmonary hypertension with a mPA pressure of 35 mmHg, 4,.JAYDON on CKD stage 3- 4 5. MPI< EF 47%, FIXED inferior wall defect. Mild LV dysfunction. EF 47% 6. 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 Hypomagnesemia 8. COPD , Home O2 dependent KEEP SPO2 APPROX 91% 9. acute metabolic encephalopathy 10. HYPERCALCEMIA PLAN ADMIT TELE BIPAP SUPPORT NOW D/W RN on floor PULM CONSULT NEUROLOGY CONSULT ABG NOW home meds D/C CALCITROL iv zosyn iv lasix 40mg x 1 now 74 min pt exam, chart review, > 50% of time spent with exam, chart review, pt care coordination DEVON BYRD MD Mar 12, 2019 09:44
[2019-03-12] MEDS ORDERED: guaiFENesin DM 200MG/20MG 10 ML SYRUP PO PRN (10:00)
[2019-03-12] MEDS ORDERED: C.DIFF MED SCREEN BY RX. MC ONE (10:30)
[2019-03-12] MEDS: IPRATRPIUM/ALBUTEROL 0.5/2.5MG 3 ML NEBU. NEB SCH ×3 (10:37→20:29)
[2019-03-12 10:42] VITALS: BP 129/71
--- NOTE | 2019-03-12 10:49 | PDOC ---
Provider Note Provider Note [id number] acute on chronic resp fail abnl cxr ae copd acute sys chf hypercalcemia stop calciterol, has hyper ca, see orders discussed w USHA Doe MD Mar 12, 2019 10:49
[2019-03-12] MEDS ORDERED: FUROSEMIDE 40 MG/4 ML VIAL. IVP ONE (11:00)
[2019-03-12] MEDS ORDERED: PIPERACILLIN/TAZOBACTAM 3.375 GM in IV NORMAL SALINE 50ML 50 ML IV ONE (11:00)
--- NOTE | 2019-03-12 11:06 | CONS ---
DATE OF CONSULTATION: 03/12/2019 I was asked to see this 78-year-old gentleman for acute on chronic respiratory failure. HISTORY OF PRESENT ILLNESS: He has history of [id number] smoking, stopped smoking in 2013. He has been on oxygen. He has a recent admission to [facility] for pneumonia. He was sent to rehab center. He has been confused. He was admitted for further evaluation. Currently, he is on oxygen. He has shortness of breath, but not much worse than before. He has cough. He denies chest pain. He denies fever or chills. He used BiPAP about 5 hours while he was in rehab center. PAST MEDICAL HISTORY: Atrial fibrillation; on Coumadin, systolic CHF, COPD, hypertension, obstructive sleep apnea-hypopnea syndrome, pacemaker, chronic kidney disease. ALLERGIES: No known drug allergies. MEDICATIONS: Currently, he is on calcitriol, Flomax, Flonase, Lipitor, vitamin C, Coumadin, DuoNebs, Solu-Medrol 125 every 6, metoprolol, Daliresp, Flomax. SOCIAL HISTORY: History of more than [id number] smoking, quit smoking in 2013. FAMILY HISTORY: No history of lung disease. REVIEW OF SYSTEMS: As mentioned as above, other systems otherwise negative. PHYSICAL EXAMINATION: GENERAL: This is an overweight gentleman. VITAL SIGNS: His O2 saturation on 2 liters of oxygen is in 80s, respiratory rate 24, heart rate 92, blood pressure 140/90, temperature 98.7. HEENT: Normocephalic, atraumatic. Pupils equal, round, reactive to light. There is shallow oropharynx. Nose is clear. NECK: There is no JVD, lymphadenopathy or thyromegaly. CARDIOVASCULAR: Irregularly irregular rhythm. CHEST: Inspection, he appears slightly tachypneic. There are bibasilar crackles and dullness at the bases. ABDOMEN: Soft. Bowel sounds are good. There is no mass. EXTREMITIES: There is no edema. LYMPHATICS: There is no lymphadenopathy. NEUROLOGIC: He answers the questions appropriately, but appears sleepy. SKIN: Chronic changes. I reviewed the following lab data: WBC 8.8, hemoglobin 9.2, platelet 207. Sodium 147, potassium 4.5, chloride 108, CO2 of 33, BUN 39, creatinine 1.5. Lactic acid 1. Calcium 11.6. It is noted that his calcium has been high since September of this year. INR 2.1. His urine drug screen is negative. Chest x-ray showed an increased vascular marking, right lung infiltrate/atelectasis. IMPRESSION: 1. Acute on chronic respiratory failure secondary to acute systolic congestive heart failure, acute exacerbation of chronic obstructive pulmonary disease, acute bronchitis versus others. 2. Abnormal chest x-ray. 3. Acute systolic congestive heart failure. 4. Acute exacerbation of chronic obstructive pulmonary disease. 5. Acute bronchitis. 6. Hypercalcemia ? etiology. 7. Atrial fibrillation, rate controlled, on Coumadin. 8. Obstructive sleep apnea-hypopnea syndrome. 9. Chronic kidney disease. PLAN AND RECOMMENDATIONS: 1. Titrate FiO2 to keep O2 saturation 90%. We will do ABG after oxygen saturation is done. 2. Use BiPAP p.r.n. during day and continuously at night. Setting was reviewed. 3. Further evaluation of hypercalcemia per primary doctor. stop calcitetrol 4. I will do a CT of the chest without contrast. 5. Continue bronchodilator. 6. Continue steroids. We will decrease dose when he is more stable. 7. Continue antibiotic. 8. Continue anticoagulation. Monitor INR. 9. The findings and recommendations were discussed with the patient, his and RT. Thank you very much for allowing me to participate in care of this very nice gentleman. USHA BECKER M.D. DR: Nakita JOB#: [id number] / [id number] PEDRO
[2019-03-12] MEDS: FLUTICASONE 50MCG/NASAL SPRAY 16GM BOTTLE. NS SCH (11:28)
[2019-03-12] MEDS: ROFLUMILAST 500 MCG TABLET. PO SCH (11:30)
[2019-03-12] MEDS: METOPROLOL SUCC 24HR ER 25 MG TAB.ER.24H. PO SCH (11:30)
[2019-03-12] MEDS: FUROSEMIDE 40 MG TABLET. PO SCH (11:30)
[2019-03-12] MEDS: CETIRIZINE HCL 10 MG TABLET. PO SCH (11:31)
[2019-03-12 12:01] LABS: BASE EXCESS COOX 4 mmol/L (-3-3); HCO3 COOX 30 mmol/L (21-28); METHEMOGLOBIN 0.3 % (0.0-1.9); OXYHEMOGLOBIN 87.3 %; PCO2 COOX 50 mmHg (35-46); PO2 COOX 56 mmHg (65-108); SAT O2 COOX 88 % (92-99)
[2019-03-12] MEDS: methylPREDNISolone SOD SUCC PF 125 MG/2 ML VIAL. IV SCH ×3 (12:15→23:33)
--- NOTE | 2019-03-12 14:55 | RAD ---
CT scan of the chest without contrast 03/12/2019 CLINICAL HISTORY: Shortness of breath. TECHNIQUE: Unenhanced, contiguous, 5 mm axial sections were obtained through the chest and upper abdomen. One or more of the following individualized dose reduction techniques were utilized for this study: 1. Automated exposure control. 2. Adjustment of the mA and/or kV according to patient size. 3. Use of iterative reconstruction technique. FINDINGS: Comparison is made to portable chest radiograph performed earlier today. A pacemaker is unchanged. Atherosclerotic calcification of the thoracic aorta and its branches is noted. Extensive coronary artery calcifications are seen. The thoracic and aorta is tortuous but tapers normally. The heart is mildly enlarged. Mild emphysematous changes are seen involving both lungs. Small patchy areas of atelectasis and/or infiltrate are seen involving the right upper lobe, right lower lobe and right middle lobe. Subsegmental atelectasis is seen involving the lingula. Dependent subsegmental atelectasis is seen involving both lower lobes, right greater than left. There is a very small right pleural effusion. A small calcified pleural plaque is seen posteriorly within the right lower lobe. No pneumothorax is seen. Images through the upper abdomen demonstrate atherosclerotic calcification of the abdominal aorta. Degenerative changes are seen involving the thoracic spine. IMPRESSION: 1. Cardiomegaly with very small right pleural effusion. 2. Mild emphysematous changes. 3. Small focal areas of infiltrate/atelectasis is seen throughout the right lung. Dependent subsegmental atelectasis is seen involving both lower lobes, right greater than left. Electronically signed by: Mayo Quevedo MD (03/12/2019 2:52 PM) [facility]
[2019-03-12 15:00] VITALS: BP 144/94
[2019-03-12] MEDS: WARFARIN 7.5 MG TABLET. PO SCH (17:48)
[2019-03-12] MEDS: PIPERACILLIN/TAZOBACTAM 3.375 GM in IV NORMAL SALINE 50ML 50 ML IV SCH (17:48)
[2019-03-12 19:25] VITALS: BP 147/70
[2019-03-12] MEDS: TAMSULOSIN 0.4 MG CAP.ER.24H. PO SCH (21:00)
[2019-03-12 23:25] VITALS: BP 140/84
[2019-03-12] MEDS: ASCORBIC ACID 500 MG TABLET PO SCH (23:34)
[2019-03-12] MEDS: ATORVASTATIN CALCIUM 10 MG TABLET. PO SCH (23:34)
[2019-03-12] MEDS: LACTOBACILLUS RHAMNOSUS GG 1 CAPSULE. PO SCH (23:34)
[2019-03-13] MEDS: PIPERACILLIN/TAZOBACTAM 3.375 GM in IV NORMAL SALINE 50ML 50 ML IV SCH ×5 (00:46→23:37)
[2019-03-13 03:25] VITALS: BP 166/79
[2019-03-13] MEDS: ALBUTEROL SULFATE 2.5 MG/3 ML NEBU. NEB SCH ×6 (05:14→19:00)
[2019-03-13 06:03] LABS: BASO % 0 % (0-3); EOS % 0 % (0-3); HEMATOCRIT 27.7 % (39.0-53.0); LYMPH # 0.3 x10^3/uL (1.0-4.8); LYMPH % 6 % (24-48); MEAN CORPUSCULAR HEMOGLOBIN 31 pg (25-35); MEAN CORPUSCULAR HGB CONC 33 g/dL (31-37); MEAN CORPUSCULAR VOLUME 95 fL (79-100); MONO # 0.1 x10^3/uL (0.0-1.1); MONO % 1 % (0-9); NEUT # 5.8 x10^3/uL (1.8-7.7); NEUT % 93 % (31-73); PLATELET COUNT 180 x10^3/uL (140-400); RED BLOOD COUNT 2.92 x10^6/uL (4.30-5.70); RED CELL DISTRIBUTION WIDTH 14.2 % (11.5-14.5); WHITE BLOOD COUNT 6.2 x10^3/uL (4.0-11.0)
[2019-03-13] MEDS: methylPREDNISolone SOD SUCC PF 125 MG/2 ML VIAL. IV SCH ×3 (06:16→21:31)
[2019-03-13 06:18] LABS: ALBUMIN 2.6 g/dL (3.4-5.0); ALBUMIN/GLOBULIN RATIO 0.7 (1.0-1.7); CALCIUM 11.4 mg/dL (8.5-10.1); CREATININE 1.6 mg/dL (0.7-1.3); GFR 42.1; POTASSIUM 4.4 mmol/L (3.5-5.1); TOTAL BILIRUBIN 0.9 mg/dL (0.2-1.0); TOTAL PROTEIN 6.6 g/dL (6.4-8.2)
[2019-03-13 06:52] LABS: PROTHROMBIN TIME PATIENT 24.4 SEC (11.7-14.0)
[2019-03-13 07:33] VITALS: BP 130/76
--- NOTE | 2019-03-13 08:57 | PDOC ---
PULMONARY PROGRESS NOTES Subjective on bipap, sob cough better. Vitals Vital Signs Date Time Temp Pulse Resp B/P (MAP) Pulse Ox O2 Delivery O2 Flow Rate FiO2 03/13/19 07:33 97.2 79 22 130/76 (94) 96 BiPAP/CPAP 97.2 03/13/19 05:15 2.0 ROS: No Nausea General: Alert, No acute distress HEENT: Other (bipap mask on) Lungs: Crackles, Other Cardiovascular: S1, S2 Abdomen: Soft, Other Neuro Exam: Alert Extremities: No Edema Skin: Warm Labs Laboratory Tests Test 03/12/19 05:55 03/12/19 05:58 03/12/19 06:10 03/12/19 06:45 White Blood Count 8.8 x10^3/uL (4.0-11.0) Red Blood Count 2.93 x10^6/uL (4.30-5.70) Hemoglobin 9.2 g/dL (13.0-17.5) Hematocrit 27.8 % (39.0-53.0) Mean Corpuscular Volume 95 fL (79-100) Mean Corpuscular Hemoglobin 31 pg (25-35) Mean Corpuscular Hemoglobin Concent 33 g/dL (31-37) Red Cell Distribution Width 15.0 % (11.5-14.5) Platelet Count 207 x10^3/uL (140-400) Neutrophils (%) (Auto) 78 % (31-73) Lymphocytes (%) (Auto) 9 % (24-48) Monocytes (%) (Auto) 11 % (0-9) Eosinophils (%) (Auto) 2 % (0-3) Basophils (%) (Auto) 1 % (0-3) Neutrophils # (Auto) 6.9 x10^3/uL (1.8-7.7) Lymphocytes # (Auto) 0.8 x10^3/uL (1.0-4.8) Monocytes # (Auto) 0.9 x10^3/uL (0.0-1.1) Eosinophils # (Auto) 0.2 x10^3/uL (0.0-0.7) Basophils # (Auto) 0.1 x10^3/uL (0.0-0.2) Prothrombin Time 23.1 SEC (11.7-14.0) Prothromb Time International Ratio 2.1 (0.8-1.1) Activated Partial Thromboplast Time 41 SEC (24-38) Sodium Level 147 mmol/L (136-145) Potassium Level 4.5 mmol/L (3.5-5.1) Chloride Level 108 mmol/L (98-107) Carbon Dioxide Level 33 mmol/L (21-32) Anion Gap 6 (6-14) Blood Urea Nitrogen 39 mg/dL (8-26) Creatinine 1.5 mg/dL (0.7-1.3) Estimated GFR (Cockcroft-Gault) 45.4 BUN/Creatinine Ratio 26 (6-20) Glucose Level 109 mg/dL (70-99) Lactic Acid Level 1.0 mmol/L (0.4-2.0) Calcium Level 11.6 mg/dL (8.5-10.1) Magnesium Level 1.8 mg/dL (1.8-2.4) Total Bilirubin 0.7 mg/dL (0.2-1.0) Aspartate Amino Transf (AST/SGOT) 33 U/L (15-37) Alanine Aminotransferase (ALT/SGPT) 32 U/L (16-63) Alkaline Phosphatase 82 U/L (46-116) Total Protein 6.3 g/dL (6.4-8.2) Albumin 2.8 g/dL (3.4-5.0) Albumin/Globulin Ratio 0.8 (1.0-1.7) Glucose (Fingerstick) 104 mg/dL (70-99) Urine Collection Type Unknown Urine Color Yellow Urine Clarity Clear Urine pH 6.0 Urine Specific [place] 1.020 Urine Protein Negative mg/dL (NEG-TRACE) Urine Glucose (UA) Negative mg/dL (NEG) Urine Ketones (Stick) Negative mg/dL (NEG) Urine Blood Negative (NEG) Urine Nitrite Negative (NEG) Urine Bilirubin Negative (NEG) Urine Urobilinogen Dipstick 1.0 mg/dL (0.2 mg/dL) Urine Leukocyte Esterase Negative (NEG) Urine RBC 0 /HPF (0-2) Urine WBC Occ /HPF (0-4) Urine Squamous Epithelial Cells Few /LPF Urine Bacteria 0 /HPF (0-FEW) Urine Opiates Screen Neg (NEG) Urine Methadone Screen Neg (NEG) Urine Barbiturates Neg (NEG) Urine Phencyclidine Screen Neg (NEG) Urine Amphetamine/Methamphetamine Neg (NEG) Urine Benzodiazepines Screen Neg (NEG) Urine Cocaine Screen Neg (NEG) Urine Cannabinoids Screen Neg (NEG) Urine Ethyl Alcohol Neg (NEG) Ammonia 35 mcmol/L (11-34) Test 03/12/19 11:55 03/13/19 05:20 O2 Saturation 88 % (92-99) Arterial Blood pH 7.39 (7.35-7.45) Arterial Blood pCO2 at Patient Temp 50 mmHg (35-46) Arterial Blood pO2 at Patient Temp 56 mmHg (65-108) Arterial Blood HCO3 30 mmol/L (21-28) Arterial Blood Base Excess 4 mmol/L (-3-3) Oxyhemoglobin 87.3 % Methemoglobin 0.3 % (0.0-1.9) Carbon Monoxide, Quantitative 0.1 % (0.0-1.9) FiO2 1 lpm nc White Blood Count 6.2 x10^3/uL (4.0-11.0) Red Blood Count 2.92 x10^6/uL (4.30-5.70) Hemoglobin 9.0 g/dL (13.0-17.5) Hematocrit 27.7 % (39.0-53.0) Mean Corpuscular Volume 95 fL (79-100) Mean Corpuscular Hemoglobin 31 pg (25-35) Mean Corpuscular Hemoglobin Concent 33 g/dL (31-37) Red Cell Distribution Width 14.2 % (11.5-14.5) Platelet Count 180 x10^3/uL (140-400) Neutrophils (%) (Auto) 93 % (31-73) Lymphocytes (%) (Auto) 6 % (24-48) Monocytes (%) (Auto) 1 % (0-9) Eosinophils (%) (Auto) 0 % (0-3) Basophils (%) (Auto) 0 % (0-3) Neutrophils # (Auto) 5.8 x10^3/uL (1.8-7.7) Lymphocytes # (Auto) 0.3 x10^3/uL (1.0-4.8) Monocytes # (Auto) 0.1 x10^3/uL (0.0-1.1) Eosinophils # (Auto) 0.0 x10^3/uL (0.0-0.7) Basophils # (Auto) 0.0 x10^3/uL (0.0-0.2) Prothrombin Time 24.4 SEC (11.7-14.0) Prothromb Time International Ratio 2.2 (0.8-1.1) Sodium Level 145 mmol/L (136-145) Potassium Level 4.4 mmol/L (3.5-5.1) Chloride Level 108 mmol/L (98-107) Carbon Dioxide Level 30 mmol/L (21-32) Anion Gap 7 (6-14) Blood Urea Nitrogen 48 mg/dL (8-26) Creatinine 1.6 mg/dL (0.7-1.3) Estimated GFR (Cockcroft-Gault) 42.1 BUN/Creatinine Ratio 30 (6-20) Glucose Level 154 mg/dL (70-99) Calcium Level 11.4 mg/dL (8.5-10.1) Total Bilirubin 0.9 mg/dL (0.2-1.0) Aspartate Amino Transf (AST/SGOT) 29 U/L (15-37) Alanine Aminotransferase (ALT/SGPT) 25 U/L (16-63) Alkaline Phosphatase 81 U/L (46-116) Total Protein 6.6 g/dL (6.4-8.2) Albumin 2.6 g/dL (3.4-5.0) Albumin/Globulin Ratio 0.7 (1.0-1.7) Laboratory Tests Test 03/12/19 11:55 03/13/19 05:20 O2 Saturation 88 % (92-99) Arterial Blood pH 7.39 (7.35-7.45) Arterial Blood pCO2 at Patient Temp 50 mmHg (35-46) Arterial Blood pO2 at Patient Temp 56 mmHg (65-108) Arterial Blood HCO3 30 mmol/L (21-28) Arterial Blood Base Excess 4 mmol/L (-3-3) Oxyhemoglobin 87.3 % Methemoglobin 0.3 % (0.0-1.9) Carbon Monoxide, Quantitative 0.1 % (0.0-1.9) FiO2 1 lpm nc White Blood Count 6.2 x10^3/uL (4.0-11.0) Red Blood Count 2.92 x10^6/uL (4.30-5.70) Hemoglobin 9.0 g/dL (13.0-17.5) Hematocrit 27.7 % (39.0-53.0) Mean Corpuscular Volume 95 fL (79-100) Mean Corpuscular Hemoglobin 31 pg (25-35) Mean Corpuscular Hemoglobin Concent 33 g/dL (31-37) Red Cell Distribution Width 14.2 % (11.5-14.5) Platelet Count 180 x10^3/uL (140-400) Neutrophils (%) (Auto) 93 % (31-73) Lymphocytes (%) (Auto) 6 % (24-48) Monocytes (%) (Auto) 1 % (0-9) Eosinophils (%) (Auto) 0 % (0-3) Basophils (%) (Auto) 0 % (0-3) Neutrophils # (Auto) 5.8 x10^3/uL (1.8-7.7) Lymphocytes # (Auto) 0.3 x10^3/uL (1.0-4.8) Monocytes # (Auto) 0.1 x10^3/uL (0.0-1.1) Eosinophils # (Auto) 0.0 x10^3/uL (0.0-0.7) Basophils # (Auto) 0.0 x10^3/uL (0.0-0.2) Prothrombin Time 24.4 SEC (11.7-14.0) Prothromb Time International Ratio 2.2 (0.8-1.1) Sodium Level 145 mmol/L (136-145) Potassium Level 4.4 mmol/L (3.5-5.1) Chloride Level 108 mmol/L (98-107) Carbon Dioxide Level 30 mmol/L (21-32) Anion Gap 7 (6-14) Blood Urea Nitrogen 48 mg/dL (8-26) Creatinine 1.6 mg/dL (0.7-1.3) Estimated GFR (Cockcroft-Gault) 42.1 BUN/Creatinine Ratio 30 (6-20) Glucose Level 154 mg/dL (70-99) Calcium Level 11.4 mg/dL (8.5-10.1) Total Bilirubin 0.9 mg/dL (0.2-1.0) Aspartate Amino Transf (AST/SGOT) 29 U/L (15-37) Alanine Aminotransferase (ALT/SGPT) 25 U/L (16-63) Alkaline Phosphatase 81 U/L (46-116) Total Protein 6.6 g/dL (6.4-8.2) Albumin 2.6 g/dL (3.4-5.0) Albumin/Globulin Ratio 0.7 (1.0-1.7) Medications Active Scripts Medications Dose Route/Sig Max Daily Dose Days Date Category Daliresp (Roflumilast) 500 Mcg Tablet 500 Mcg PO DAILY 03/08/19 Rx Guaifenesin Dm Syrup (Guaifenesin/Dextromethorphan) 5 Ml Syrup 10 Ml PO PRN Q6HRS PRN 30 03/08/19 Rx Furosemide 40 Mg Tablet 40 Mg PO DAILY 03/08/19 Rx Amox Tr-K Clv 875-125 Mg Tab (Amoxicillin/Potassium Clav) 1 Each Tablet 1 Tab PO BID 03/08/19 Rx Xanax (Alprazolam) 0.5 Mg Tablet 0.5 Mg PO PRN Q6HRS PRN 03/08/19 Rx Trazodone Hcl 50 Mg Tablet 50 Mg PO HS 03/01/19 Reported Ranitidine Hcl 150 Mg Capsule 150 Mg PO DAILY 03/01/19 Reported Magnesium (Magnesium Oxide) 400 Mg Capsule 400 Mg PO DAILY 03/01/19 Reported Miralax (Polyethylene Glycol 3350) 119 Gm Powder 17 Gm PO PRN DAILY PRN 12/06/18 Reported Metoprolol Succinate ( Xl ) (Metoprolol Succinate) 25 Mg Tab.er.24h 12.5 Mg PO DAILY 12/06/18 Reported Duoneb 0.5-3(2.5) Mg/3 Ml (Albuterol/Ipratropium) 3 Ml Ampul.neb 3 Ml NEB QID 03/16/18 Reported Ascorbic Acid 500 Mg Tablet 500 Mg PO BID 03/15/18 Reported Super B Complex-Vitamin C (B Complex With Vitamin C) 1 Each Tablet 1 Each PO 12/04/17 Reported Calcitriol 0.25 Mcg Capsule 0.25 Mcg PO ,TH 05/24/16 Reported Warfarin Sodium 5 Mg Tablet 7.5 Mg PO DAILY 05/24/16 Reported Loratadine 10 Mg Tablet 10 Mg PO QHS 10/16/14 Reported Tamsulosin Hcl 0.4 Mg Cap.er.24h 0.4 Mg PO QHS 10/16/14 Reported Atorvastatin Calcium 10 Mg Tablet 10 Mg PO HS 10/16/14 Reported Flonase (Fluticasone Propionate) 16 Gm [place].susp 2 [place] NS BID 01/06/[address] of chest 1. Cardiomegaly with very small right pleural effusion. 2. Mild emphysematous changes. 3. Small focal areas of infiltrate/atelectasis is seen throughout the right lung. Dependent subsegmental atelectasis is seen involving both lower lobes, right greater than left. Impression . IMPRESSION: 1. Acute on chronic respiratory failure secondary to acute systolic congestive heart failure, acute exacerbation of chronic obstructive pulmonary disease, acute bronchitis 2. Abnormal chest x-ray. 3. Acute systolic congestive heart failure. 4. Acute exacerbation of chronic obstructive pulmonary disease. 5. Acute bronchitis. 6. Hypercalcemia, primary hyperparathyroidism, his confusion could be 2/2 to hypercalcemia 7. Atrial fibrillation, rate controlled, on Coumadin. 8. Obstructive sleep apnea-hypopnea syndrome. 9. Chronic kidney disease. Plan . PLAN AND RECOMMENDATIONS: 1. Titrate FiO2 to keep O2 saturation 90%. abg reviewed, 2. Use BiPAP p.r.n. during day and continuously at night. Setting was reviewed. 3. Further tx of hypercalcemia per primary doctor. stop calcitetrol 4. ct reviewed, 5. Continue bronchodilator. 6. change solumedrol to 80 q 8hrs 7. Continue antibiotic. 8. Continue anticoagulation. Monitor INR. discussed w pt, rt USHA BECKER MD Mar 13, 2019 08:57
[2019-03-13] MEDS ORDERED: POLYETHYLENE GLYCOL 3350 17 GM PACKET. PO PRN (09:00)
[2019-03-13] MEDS ORDERED: LORazepam 0.5 MG TABLET PO PRN (09:15)
[2019-03-13 10:20] LABS: % BANDS 1 % (0-9); % LYMPHS 6 % (24-48); % SEGS 93 % (35-66); PLT ESTIMATE ADEQUATE (ADEQUATE)
[2019-03-13] MEDS: METOPROLOL SUCC 24HR ER 25 MG TAB.ER.24H. PO SCH (10:29)
[2019-03-13] MEDS: LACTOBACILLUS RHAMNOSUS GG 1 CAPSULE. PO SCH ×2 (10:30→21:28)
[2019-03-13] MEDS: CETIRIZINE HCL 10 MG TABLET. PO SCH (10:30)
[2019-03-13] MEDS: ROFLUMILAST 500 MCG TABLET. PO SCH (10:30)
[2019-03-13] MEDS: ASCORBIC ACID 500 MG TABLET PO SCH ×2 (10:31→21:28)
[2019-03-13] MEDS: FUROSEMIDE 40 MG TABLET. PO SCH (10:31)
[2019-03-13] MEDS: FLUTICASONE 50MCG/NASAL SPRAY 16GM BOTTLE. NS SCH ×2 (10:32→21:28)
--- NOTE | 2019-03-13 10:54 | PDOC ---
PROGRESS NOTES Chief Complaint Chief Complaint 1. Altered mental status, acute delirium on cognitive decline - 2. vCHF exacerbation diastolic 3. HYpoxic respi failure , HYPERCAPNIC on BIPAP and VM Hazy infiltrates or edema with mild worsening from the recent exam. Cor pulmonale with moderate pulmonary hypertension with a mPA pressure of 35 mmHg, 4,.JAYDON on CKD stage 3- 4 5. MPI< EF 47%, FIXED inferior wall defect. Mild LV dysfunction. EF 47% 6. 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 Hypomagnesemia 8. COPD , Home O2 dependent KEEP SPO2 APPROX 91% 9. acute metabolic encephalopathy 10. HYPERCALCEMIA ADMIT TELE BIPAP SUPPORT NOW D/W RN on floor PULM CONSULT NEUROLOGY CONSULT ABG NOW home meds D/C CALCITROL iv zosyn iv lasix 40mg x 1 now Vitals Vitals Vital Signs Date Time Temp Pulse Resp B/P (MAP) Pulse Ox O2 Delivery O2 Flow Rate FiO2 03/13/19 10:33 79 130/76 03/13/19 08:56 97 Nasal Cannula 2.0 03/13/19 07:33 97.2 22 97.2 Physical Exam General: Alert, Cooperative, mild distress Lungs: Crackles, Other Abdomen: Normal bowel sounds, Soft Labs LABS Laboratory Tests Test 03/12/19 11:55 03/13/19 05:20 O2 Saturation 88 % (92-99) Arterial Blood pH 7.39 (7.35-7.45) Arterial Blood pCO2 at Patient Temp 50 mmHg (35-46) Arterial Blood pO2 at Patient Temp 56 mmHg (65-108) Arterial Blood HCO3 30 mmol/L (21-28) Arterial Blood Base Excess 4 mmol/L (-3-3) Oxyhemoglobin 87.3 % Methemoglobin 0.3 % (0.0-1.9) Carbon Monoxide, Quantitative 0.1 % (0.0-1.9) FiO2 1 lpm nc White Blood Count 6.2 x10^3/uL (4.0-11.0) Red Blood Count 2.92 x10^6/uL (4.30-5.70) Hemoglobin 9.0 g/dL (13.0-17.5) Hematocrit 27.7 % (39.0-53.0) Mean Corpuscular Volume 95 fL (79-100) Mean Corpuscular Hemoglobin 31 pg (25-35) Mean Corpuscular Hemoglobin Concent 33 g/dL (31-37) Red Cell Distribution Width 14.2 % (11.5-14.5) Platelet Count 180 x10^3/uL (140-400) Neutrophils (%) (Auto) 93 % (31-73) Lymphocytes (%) (Auto) 6 % (24-48) Monocytes (%) (Auto) 1 % (0-9) Eosinophils (%) (Auto) 0 % (0-3) Basophils (%) (Auto) 0 % (0-3) Neutrophils # (Auto) 5.8 x10^3/uL (1.8-7.7) Lymphocytes # (Auto) 0.3 x10^3/uL (1.0-4.8) Monocytes # (Auto) 0.1 x10^3/uL (0.0-1.1) Eosinophils # (Auto) 0.0 x10^3/uL (0.0-0.7) Basophils # (Auto) 0.0 x10^3/uL (0.0-0.2) Segmented Neutrophils % 93 % (35-66) Band Neutrophils % 1 % (0-9) Lymphocytes % 6 % (24-48) Platelet Estimate Adequate (ADEQUATE) Prothrombin Time 24.4 SEC (11.7-14.0) Prothromb Time International Ratio 2.2 (0.8-1.1) Sodium Level 145 mmol/L (136-145) Potassium Level 4.4 mmol/L (3.5-5.1) Chloride Level 108 mmol/L (98-107) Carbon Dioxide Level 30 mmol/L (21-32) Anion Gap 7 (6-14) Blood Urea Nitrogen 48 mg/dL (8-26) Creatinine 1.6 mg/dL (0.7-1.3) Estimated GFR (Cockcroft-Gault) 42.1 BUN/Creatinine Ratio 30 (6-20) Glucose Level 154 mg/dL (70-99) Calcium Level 11.4 mg/dL (8.5-10.1) Total Bilirubin 0.9 mg/dL (0.2-1.0) Aspartate Amino Transf (AST/SGOT) 29 U/L (15-37) Alanine Aminotransferase (ALT/SGPT) 25 U/L (16-63) Alkaline Phosphatase 81 U/L (46-116) Total Protein 6.6 g/dL (6.4-8.2) Albumin 2.6 g/dL (3.4-5.0) Albumin/Globulin Ratio 0.7 (1.0-1.7) Assessment and Plan Assessmemt and Plan Problems Medical Problems: (1) Dehydration Status: Acute (2) Delirium Status: Acute (3) Hypercalcemia Status: Acute Comment Review of Relevant I have reviewed the following items aron (where applicable) has been applied. Labs Laboratory Tests Test 03/12/19 05:55 03/12/19 05:58 03/12/19 06:10 03/12/19 06:45 White Blood Count 8.8 x10^3/uL (4.0-11.0) Red Blood Count 2.93 x10^6/uL (4.30-5.70) Hemoglobin 9.2 g/dL (13.0-17.5) Hematocrit 27.8 % (39.0-53.0) Mean Corpuscular Volume 95 fL (79-100) Mean Corpuscular Hemoglobin 31 pg (25-35) Mean Corpuscular Hemoglobin Concent 33 g/dL (31-37) Red Cell Distribution Width 15.0 % (11.5-14.5) Platelet Count 207 x10^3/uL (140-400) Neutrophils (%) (Auto) 78 % (31-73) Lymphocytes (%) (Auto) 9 % (24-48) Monocytes (%) (Auto) 11 % (0-9) Eosinophils (%) (Auto) 2 % (0-3) Basophils (%) (Auto) 1 % (0-3) Neutrophils # (Auto) 6.9 x10^3/uL (1.8-7.7) Lymphocytes # (Auto) 0.8 x10^3/uL (1.0-4.8) Monocytes # (Auto) 0.9 x10^3/uL (0.0-1.1) Eosinophils # (Auto) 0.2 x10^3/uL (0.0-0.7) Basophils # (Auto) 0.1 x10^3/uL (0.0-0.2) Prothrombin Time 23.1 SEC (11.7-14.0) Prothromb Time International Ratio 2.1 (0.8-1.1) Activated Partial Thromboplast Time 41 SEC (24-38) Sodium Level 147 mmol/L (136-145) Potassium Level 4.5 mmol/L (3.5-5.1) Chloride Level 108 mmol/L (98-107) Carbon Dioxide Level 33 mmol/L (21-32) Anion Gap 6 (6-14) Blood Urea Nitrogen 39 mg/dL (8-26) Creatinine 1.5 mg/dL (0.7-1.3) Estimated GFR (Cockcroft-Gault) 45.4 BUN/Creatinine Ratio 26 (6-20) Glucose Level 109 mg/dL (70-99) Lactic Acid Level 1.0 mmol/L (0.4-2.0) Calcium Level 11.6 mg/dL (8.5-10.1) Magnesium Level 1.8 mg/dL (1.8-2.4) Total Bilirubin 0.7 mg/dL (0.2-1.0) Aspartate Amino Transf (AST/SGOT) 33 U/L (15-37) Alanine Aminotransferase (ALT/SGPT) 32 U/L (16-63) Alkaline Phosphatase 82 U/L (46-116) Total Protein 6.3 g/dL (6.4-8.2) Albumin 2.8 g/dL (3.4-5.0) Albumin/Globulin Ratio 0.8 (1.0-1.7) Glucose (Fingerstick) 104 mg/dL (70-99) Urine Collection Type Unknown Urine Color Yellow Urine Clarity Clear Urine pH 6.0 Urine Specific [place] 1.020 Urine Protein Negative mg/dL (NEG-TRACE) Urine Glucose (UA) Negative mg/dL (NEG) Urine Ketones (Stick) Negative mg/dL (NEG) Urine Blood Negative (NEG) Urine Nitrite Negative (NEG) Urine Bilirubin Negative (NEG) Urine Urobilinogen Dipstick 1.0 mg/dL (0.2 mg/dL) Urine Leukocyte Esterase Negative (NEG) Urine RBC 0 /HPF (0-2) Urine WBC Occ /HPF (0-4) Urine Squamous Epithelial Cells Few /LPF Urine Bacteria 0 /HPF (0-FEW) Urine Opiates Screen Neg (NEG) Urine Methadone Screen Neg (NEG) Urine Barbiturates Neg (NEG) Urine Phencyclidine Screen Neg (NEG) Urine Amphetamine/Methamphetamine Neg (NEG) Urine Benzodiazepines Screen Neg (NEG) Urine Cocaine Screen Neg (NEG) Urine Cannabinoids Screen Neg (NEG) Urine Ethyl Alcohol Neg (NEG) Ammonia 35 mcmol/L (11-34) Test 03/12/19 11:55 03/13/19 05:20 O2 Saturation 88 % (92-99) Arterial Blood pH 7.39 (7.35-7.45) Arterial Blood pCO2 at Patient Temp 50 mmHg (35-46) Arterial Blood pO2 at Patient Temp 56 mmHg (65-108) Arterial Blood HCO3 30 mmol/L (21-28) Arterial Blood Base Excess 4 mmol/L (-3-3) Oxyhemoglobin 87.3 % Methemoglobin 0.3 % (0.0-1.9) Carbon Monoxide, Quantitative 0.1 % (0.0-1.9) FiO2 1 lpm nc White Blood Count 6.2 x10^3/uL (4.0-11.0) Red Blood Count 2.92 x10^6/uL (4.30-5.70) Hemoglobin 9.0 g/dL (13.0-17.5) Hematocrit 27.7 % (39.0-53.0) Mean Corpuscular Volume 95 fL (79-100) Mean Corpuscular Hemoglobin 31 pg (25-35) Mean Corpuscular Hemoglobin Concent 33 g/dL (31-37) Red Cell Distribution Width 14.2 % (11.5-14.5) Platelet Count 180 x10^3/uL (140-400) Neutrophils (%) (Auto) 93 % (31-73) Lymphocytes (%) (Auto) 6 % (24-48) Monocytes (%) (Auto) 1 % (0-9) Eosinophils (%) (Auto) 0 % (0-3) Basophils (%) (Auto) 0 % (0-3) Neutrophils # (Auto) 5.8 x10^3/uL (1.8-7.7) Lymphocytes # (Auto) 0.3 x10^3/uL (1.0-4.8) Monocytes # (Auto) 0.1 x10^3/uL (0.0-1.1) Eosinophils # (Auto) 0.0 x10^3/uL (0.0-0.7) Basophils # (Auto) 0.0 x10^3/uL (0.0-0.2) Segmented Neutrophils % 93 % (35-66) Band Neutrophils % 1 % (0-9) Lymphocytes % 6 % (24-48) Platelet Estimate Adequate (ADEQUATE) Prothrombin Time 24.4 SEC (11.7-14.0) Prothromb Time International Ratio 2.2 (0.8-1.1) Sodium Level 145 mmol/L (136-145) Potassium Level 4.4 mmol/L (3.5-5.1) Chloride Level 108 mmol/L (98-107) Carbon Dioxide Level 30 mmol/L (21-32) Anion Gap 7 (6-14) Blood Urea Nitrogen 48 mg/dL (8-26) Creatinine 1.6 mg/dL (0.7-1.3) Estimated GFR (Cockcroft-Gault) 42.1 BUN/Creatinine Ratio 30 (6-20) Glucose Level 154 mg/dL (70-99) Calcium Level 11.4 mg/dL (8.5-10.1) Total Bilirubin 0.9 mg/dL (0.2-1.0) Aspartate Amino Transf (AST/SGOT) 29 U/L (15-37) Alanine Aminotransferase (ALT/SGPT) 25 U/L (16-63) Alkaline Phosphatase 81 U/L (46-116) Total Protein 6.6 g/dL (6.4-8.2) Albumin 2.6 g/dL (3.4-5.0) Albumin/Globulin Ratio 0.7 (1.0-1.7) Laboratory Tests Test 03/12/19 11:55 03/13/19 05:20 O2 Saturation 88 % (92-99) Arterial Blood pH 7.39 (7.35-7.45) Arterial Blood pCO2 at Patient Temp 50 mmHg (35-46) Arterial Blood pO2 at Patient Temp 56 mmHg (65-108) Arterial Blood HCO3 30 mmol/L (21-28) Arterial Blood Base Excess 4 mmol/L (-3-3) Oxyhemoglobin 87.3 % Methemoglobin 0.3 % (0.0-1.9) Carbon Monoxide, Quantitative 0.1 % (0.0-1.9) FiO2 1 lpm nc White Blood Count 6.2 x10^3/uL (4.0-11.0) Red Blood Count 2.92 x10^6/uL (4.30-5.70) Hemoglobin 9.0 g/dL (13.0-17.5) Hematocrit 27.7 % (39.0-53.0) Mean Corpuscular Volume 95 fL (79-100) Mean Corpuscular Hemoglobin 31 pg (25-35) Mean Corpuscular Hemoglobin Concent 33 g/dL (31-37) Red Cell Distribution Width 14.2 % (11.5-14.5) Platelet Count 180 x10^3/uL (140-400) Neutrophils (%) (Auto) 93 % (31-73) Lymphocytes (%) (Auto) 6 % (24-48) Monocytes (%) (Auto) 1 % (0-9) Eosinophils (%) (Auto) 0 % (0-3) Basophils (%) (Auto) 0 % (0-3) Neutrophils # (Auto) 5.8 x10^3/uL (1.8-7.7) Lymphocytes # (Auto) 0.3 x10^3/uL (1.0-4.8) Monocytes # (Auto) 0.1 x10^3/uL (0.0-1.1) Eosinophils # (Auto) 0.0 x10^3/uL (0.0-0.7) Basophils # (Auto) 0.0 x10^3/uL (0.0-0.2) Segmented Neutrophils % 93 % (35-66) Band Neutrophils % 1 % (0-9) Lymphocytes % 6 % (24-48) Platelet Estimate Adequate (ADEQUATE) Prothrombin Time 24.4 SEC (11.7-14.0) Prothromb Time International Ratio 2.2 (0.8-1.1) Sodium Level 145 mmol/L (136-145) Potassium Level 4.4 mmol/L (3.5-5.1) Chloride Level 108 mmol/L (98-107) Carbon Dioxide Level 30 mmol/L (21-32) Anion Gap 7 (6-14) Blood Urea Nitrogen 48 mg/dL (8-26) Creatinine 1.6 mg/dL (0.7-1.3) Estimated GFR (Cockcroft-Gault) 42.1 BUN/Creatinine Ratio 30 (6-20) Glucose Level 154 mg/dL (70-99) Calcium Level 11.4 mg/dL (8.5-10.1) Total Bilirubin 0.9 mg/dL (0.2-1.0) Aspartate Amino Transf (AST/SGOT) 29 U/L (15-37) Alanine Aminotransferase (ALT/SGPT) 25 U/L (16-63) Alkaline Phosphatase 81 U/L (46-116) Total Protein 6.6 g/dL (6.4-8.2) Albumin 2.6 g/dL (3.4-5.0) Albumin/Globulin Ratio 0.7 (1.0-1.7) Medications Current Medications Sodium Chloride 1,000 ml @ 1,000 mls/hr 1X ONCE IV Last administered on 03/12/19at 06:47; Start 03/12/19 at 06:00; Stop 03/12/19 at 06:59; Status DC Sodium Chloride 1,000 ml @ 1,000 mls/hr 1X ONCE IV Last administered on 03/12/19at 11:27; Start 03/12/19 at 08:45; Stop 03/12/19 at 09:44; Status DC Ondansetron HCl (Zofran) 4 mg PRN Q8HRS PRN IV NAUSEA/VOMITING; Start 03/12/19 at 08:45; Stop 03/13/19 at 08:44; Status DC Ascorbic Acid (Vitamin C) 500 mg BID PO Last administered on 03/13/19at 10:33; Start 03/12/19 at 21:00 Atorvastatin Calcium (Lipitor) 10 mg HS PO Last administered on 03/12/19at 23:39; Start 03/12/19 at 21:00 Calcitriol (Rocaltrol) 0.25 mcg QMTH@0900 PO ; Start 03/14/19 at 09:00; Stop 03/12/19 at 10:49; Status DC Fluticasone Propionate (Flonase) 2 spray BID NS Last administered on 03/13/19at 10:33; Start 03/12/19 at 21:00 Furosemide (Lasix) 40 mg DAILY PO Last administered on 03/13/19at 10:33; Start 03/12/19 at 11:00 Guaifenesin (Robitussin Dm) 10 ml PRN Q6HRS PRN PO COUGH Last administered on 03/12/19 23:39; Start 03/12/19 at 10:00 Albuterol/ Ipratropium (Duoneb) 3 ml QID NEB Last administered on 03/12/19 20:29; Start 03/12/19 at 13:00 Metoprolol Succinate (Toprol Xl) 12.5 mg DAILY PO Last administered on 03/13/19 10:33; Start 03/12/19 at 11:00 Polyethylene Glycol (miraLAX PACKET) 17 gm PRN DAILY PRN PO CONSTIPATION; Start 03/13/19 at 09:00 Roflumilast (Daliresp) 500 mcg DAILY PO Last administered on 03/13/19 10:33; Start 03/12/19 at 11:00 Tamsulosin HCl (Flomax) 0.4 mg QHS PO Last administered on 03/12/19 23:40; Start 03/12/19 at 21:00 Warfarin Sodium (Coumadin) 7.5 mg DAILY16 PO Last administered on 03/12/19 17:4 8; Start 03/12/19 at 16:00 Cetirizine HCl (ZyrTEC) 10 mg DAILY PO Last administered on 03/13/19 10:33; Start 03/12/19 at 11:00 Piperacillin Sod/ Tazobactam Sod 3.375 gm/Sodium Chloride 50 ml @ 100 mls/hr 1X ONCE IV Last administered on 03/12/19 11:27; Start 03/12/19 at 11:00; Stop 03/12/19 at 11:29; Status DC Warfarin Sodium (Coumadin Per Pharmacy) 1 each PRN DAILY PRN MC SEE COMMENTS; Start 03/12/19 at 10:30 Pharmacy Consult (C.diff Med Screen By Rx) 1 each 1X ONCE MC ; Start 03/12/19 at 10:30; Stop 03/12/19 at 16:14; Status DC Methylprednisolone Sodium Succinate (SOLU-Medrol 125MG VIAL) 100 mg Q6HRS IV Last administered on 03/13/19 06:17; Start 03/12/19 at 12:00; Stop 03/13/19 at 08:59; Status DC Furosemide (Lasix) 40 mg 1X ONCE IVP Last administered on 03/12/19 11:27; Start 03/12/19 at 11:00; Stop 03/12/19 at 11:01; Status DC Piperacillin Sod/ Tazobactam Sod 3.375 gm/Sodium Chloride 50 ml @ 100 mls/hr Q6HRS IV Last administered on 03/13/19at 06:17; Start 03/12/19 at 18:00 Lactobacillus Rhamnosus (Culturelle) 1 cap BID PO Last administered on 03/13/19at 10:33; Start 03/12/19 at 21:00 Albuterol Sulfate (Ventolin Neb Soln) 2.5 mg 6XDAY NEB Last administered on 03/13/19at 08:52; Start 03/12/19 at 19:00 Methylprednisolone Sodium Succinate (SOLU-Medrol 125MG VIAL) 80 mg Q8HRS IV ; Start 03/13/19 at 14:00 Lorazepam (Ativan) 0.5 mg PRN Q8HRS PRN PO ANXIETY / AGITATION; Start 03/13/19 at 09:15 Active Scripts Active Daliresp (Roflumilast) 500 Mcg Tablet 500 Mcg PO DAILY Guaifenesin Dm Syrup (Guaifenesin/Dextromethorphan) 5 Ml Syrup 10 Ml PO PRN Q6HRS PRN 30 Days Furosemide 40 Mg Tablet 40 Mg PO DAILY Amox Tr-K Clv 875-125 Mg Tab (Amoxicillin/Potassium Clav) 1 Each Tablet 1 Tab PO BID Xanax (Alprazolam) 0.5 Mg Tablet 0.5 Mg PO PRN Q6HRS PRN Reported Trazodone Hcl 50 Mg Tablet 50 Mg PO HS Ranitidine Hcl 150 Mg Capsule 150 Mg PO DAILY Magnesium (Magnesium Oxide) 400 Mg Capsule 400 Mg PO DAILY Miralax (Polyethylene Glycol 3350) 119 Gm Powder 17 Gm PO PRN DAILY PRN Metoprolol Succinate ( Xl ) (Metoprolol Succinate) 25 Mg Tab.er.24h 12.5 Mg PO DAILY Duoneb 0.5-3(2.5) Mg/3 Ml (Albuterol/Ipratropium) 3 Ml Ampul.neb 3 Ml NEB QID Ascorbic Acid 500 Mg Tablet 500 Mg PO BID Super B Complex-Vitamin C (B Complex With Vitamin C) 1 Each Tablet 1 Each PO Calcitriol 0.25 Mcg Capsule 0.25 Mcg PO , Warfarin Sodium 5 Mg Tablet 7.5 Mg PO DAILY Loratadine 10 Mg Tablet 10 Mg PO QHS Tamsulosin Hcl 0.4 Mg Cap.er.24h 0.4 Mg PO QHS Atorvastatin Calcium 10 Mg Tablet 10 Mg PO HS Flonase (Fluticasone Propionate) 16 Gm [place].susp 2 [place] NS BID Vitals/I & O Vital Sign - Last 24 Hours 03/12/19 03/12/19 03/12/19 03/12/19 11:33 15:00 16:51 19:00 Temp 98.2 98.2 Pulse 99 81 Resp 20 B/P (MAP) 129/71 144/94 (111) Pulse Ox 92 92 O2 Delivery Nasal Cannula Nasal Cannula Nasal Cannula O2 Flow Rate 1.5 1.5 2.0 03/12/19 03/12/19 03/12/19 03/12/19 19:25 20:32 20:50 23:25 Temp 98.7 97.6 98.7 97.6 Pulse 87 104 Resp 20 27 B/P (MAP) 147/70 (95) 140/84 (102) Pulse Ox 93 96 96 98 O2 Delivery Nasal Cannula Nasal Cannula BiPAP/CPAP BiPAP/CPAP O2 Flow Rate 2.0 2.0 03/13/19 03/13/19 03/13/19 03/13/19 03:25 05:15 07:33 08:46 Temp 97.5 97.2 97.5 97.2 Pulse 84 79 Resp 20 22 B/P (MAP) 166/79 (108) 130/76 (94) Pulse Ox 95 97 96 97 O2 Delivery Nasal Cannula Nasal Cannula BiPAP/CPAP BiPAP/CPAP O2 Flow Rate 1.5 2.0 03/13/19 03/13/19 08:56 10:33 Pulse 79 B/P (MAP) 130/76 Pulse Ox 97 O2 Delivery Nasal Cannula O2 Flow Rate 2.0 Intake and Output 03/12/19 03/12/19 03/13/19 15:00 23:00 07:00 Intake Total 1060 ml 50 ml 450 ml Output Total 450 ml 370 ml 640 ml Balance 610 ml -320 ml -190 ml JEMAL HOLT MD Mar 13, 2019 10:54
[2019-03-13 11:07] VITALS: BP 133/62
[2019-03-13] MEDS: IPRATRPIUM/ALBUTEROL 0.5/2.5MG 3 ML NEBU. NEB SCH ×4 (11:21→19:51)
--- NOTE | 2019-03-13 12:56 | NUR ---
Pharmacy Warfarin Dosing Note S:Pharmacy consulted to assist with anticoagulation therapy with target INR: 2 -3 O:JOSEP SIMS is a 78 year old M with Atrial Fibrillation LABS: Last INR: 2.2 Last HGB: 9 Last HCT: 27.7 Last PLT: 180 Last dose of 7.5 mg given on 03/12/19 at 1748 A:INR of 2.2 is within desired range. Target range for this patient is: 2 -3 P: Warfarin dose: 7.5 mg Daily Bridge Therapy: None Next INR due tomorrow Pharmacy anticoagulation service will continue to follow. Grisel Damon Jayla, 03/13/19 2130
--- NOTE | 2019-03-13 13:59 | NUR ---
ALB WAS GIVEN WITH DUONEB
[2019-03-13] MEDS: WARFARIN 7.5 MG TABLET. PO SCH (14:59)
[2019-03-13 15:03] VITALS: BP 123/63
[2019-03-13 19:30] VITALS: BP 115/71
[2019-03-13] MEDS: ATORVASTATIN CALCIUM 10 MG TABLET. PO SCH (21:28)
[2019-03-13] MEDS: TAMSULOSIN 0.4 MG CAP.ER.24H. PO SCH (21:28)
[2019-03-13] MEDS ORDERED: ALBUTEROL SULFATE 2.5 MG/3 ML NEBU. NEB PRN (22:00)
[2019-03-13 23:30] VITALS: BP 130/75
[2019-03-14 03:30] VITALS: BP 140/76
[2019-03-14] MEDS: PIPERACILLIN/TAZOBACTAM 3.375 GM in IV NORMAL SALINE 50ML 50 ML IV SCH ×4 (05:39→22:59)
[2019-03-14] MEDS: methylPREDNISolone SOD SUCC PF 125 MG/2 ML VIAL. IV SCH ×3 (05:51→21:01)
[2019-03-14 07:00] VITALS: BP 129/82
[2019-03-14] MEDS ORDERED: BARIUM SULFATE 40% (APPLE) 148 GM PWD. PO ONE (08:15)
[2019-03-14] MEDS: IPRATRPIUM/ALBUTEROL 0.5/2.5MG 3 ML NEBU. NEB SCH ×4 (08:15→20:56)
[2019-03-14] MEDS ORDERED: CALCITRIOL 0.25 MCG CAPSULE. PO SCH (09:00)
[2019-03-14] MEDS: FLUTICASONE 50MCG/NASAL SPRAY 16GM BOTTLE. NS SCH ×2 (09:00→21:01)
--- NOTE | 2019-03-14 09:57 | PDOC ---
PULMONARY PROGRESS NOTES Subjective no soa, mild cough slightly confused Vitals Vital Signs Date Time Temp Pulse Resp B/P (MAP) Pulse Ox O2 Delivery O2 Flow Rate FiO2 03/14/19 08:15 97 Nasal Cannula 1.5 03/14/19 07:00 98.7 90 22 129/82 (98) 98.7 ROS: No Nausea General: Alert, No acute distress HEENT: Other (bipap mask on) Lungs: Other (decrease bs) Cardiovascular: S1, S2 Abdomen: Soft, Other Neuro Exam: Alert Extremities: No Edema Skin: Warm Labs Laboratory Tests Test 03/12/19 11:55 03/13/19 05:20 03/14/19 06:11 O2 Saturation 88 % (92-99) Arterial Blood pH 7.39 (7.35-7.45) Arterial Blood pCO2 at Patient Temp 50 mmHg (35-46) Arterial Blood pO2 at Patient Temp 56 mmHg (65-108) Arterial Blood HCO3 30 mmol/L (21-28) Arterial Blood Base Excess 4 mmol/L (-3-3) Oxyhemoglobin 87.3 % Methemoglobin 0.3 % (0.0-1.9) Carbon Monoxide, Quantitative 0.1 % (0.0-1.9) FiO2 1 lpm nc White Blood Count 6.2 x10^3/uL (4.0-11.0) Red Blood Count 2.92 x10^6/uL (4.30-5.70) Hemoglobin 9.0 g/dL (13.0-17.5) Hematocrit 27.7 % (39.0-53.0) Mean Corpuscular Volume 95 fL (79-100) Mean Corpuscular Hemoglobin 31 pg (25-35) Mean Corpuscular Hemoglobin Concent 33 g/dL (31-37) Red Cell Distribution Width 14.2 % (11.5-14.5) Platelet Count 180 x10^3/uL (140-400) Neutrophils (%) (Auto) 93 % (31-73) Lymphocytes (%) (Auto) 6 % (24-48) Monocytes (%) (Auto) 1 % (0-9) Eosinophils (%) (Auto) 0 % (0-3) Basophils (%) (Auto) 0 % (0-3) Neutrophils # (Auto) 5.8 x10^3/uL (1.8-7.7) Lymphocytes # (Auto) 0.3 x10^3/uL (1.0-4.8) Monocytes # (Auto) 0.1 x10^3/uL (0.0-1.1) Eosinophils # (Auto) 0.0 x10^3/uL (0.0-0.7) Basophils # (Auto) 0.0 x10^3/uL (0.0-0.2) Segmented Neutrophils % 93 % (35-66) Band Neutrophils % 1 % (0-9) Lymphocytes % 6 % (24-48) Platelet Estimate Adequate (ADEQUATE) Prothrombin Time 24.4 SEC (11.7-14.0) 34.0 SEC (11.7-14.0) Prothromb Time International Ratio 2.2 (0.8-1.1) 3.4 (0.8-1.1) Sodium Level 145 mmol/L (136-145) Potassium Level 4.4 mmol/L (3.5-5.1) Chloride Level 108 mmol/L (98-107) Carbon Dioxide Level 30 mmol/L (21-32) Anion Gap 7 (6-14) Blood Urea Nitrogen 48 mg/dL (8-26) Creatinine 1.6 mg/dL (0.7-1.3) Estimated GFR (Cockcroft-Gault) 42.1 BUN/Creatinine Ratio 30 (6-20) Glucose Level 154 mg/dL (70-99) Calcium Level 11.4 mg/dL (8.5-10.1) Total Bilirubin 0.9 mg/dL (0.2-1.0) Aspartate Amino Transf (AST/SGOT) 29 U/L (15-37) Alanine Aminotransferase (ALT/SGPT) 25 U/L (16-63) Alkaline Phosphatase 81 U/L (46-116) Total Protein 6.6 g/dL (6.4-8.2) Albumin 2.6 g/dL (3.4-5.0) Albumin/Globulin Ratio 0.7 (1.0-1.7) Laboratory Tests Test 03/14/19 06:11 Prothrombin Time 34.0 SEC (11.7-14.0) Prothromb Time International Ratio 3.4 (0.8-1.1) Medications Active Scripts Medications Dose Route/Sig Max Daily Dose Days Date Category Daliresp (Roflumilast) 500 Mcg Tablet 500 Mcg PO DAILY 03/08/19 Rx Guaifenesin Dm Syrup (Guaifenesin/Dextromethorphan) 5 Ml Syrup 10 Ml PO PRN Q6HRS PRN 30 03/08/19 Rx Furosemide 40 Mg Tablet 40 Mg PO DAILY 03/08/19 Rx Amox Tr-K Clv 875-125 Mg Tab (Amoxicillin/Potassium Clav) 1 Each Tablet 1 Tab PO BID 03/08/19 Rx Xanax (Alprazolam) 0.5 Mg Tablet 0.5 Mg PO PRN Q6HRS PRN 03/08/19 Rx Trazodone Hcl 50 Mg Tablet 50 Mg PO HS 03/01/19 Reported Ranitidine Hcl 150 Mg Capsule 150 Mg PO DAILY 03/01/19 Reported Magnesium (Magnesium Oxide) 400 Mg Capsule 400 Mg PO DAILY 03/01/19 Reported Miralax (Polyethylene Glycol 3350) 119 Gm Powder 17 Gm PO PRN DAILY PRN 12/06/18 Reported Metoprolol Succinate ( Xl ) (Metoprolol Succinate) 25 Mg Tab.er.24h 12.5 Mg PO DAILY 12/06/18 Reported Duoneb 0.5-3(2.5) Mg/3 Ml (Albuterol/Ipratropium) 3 Ml Ampul.neb 3 Ml NEB QID 03/16/18 Reported Ascorbic Acid 500 Mg Tablet 500 Mg PO BID 03/15/18 Reported Super B Complex-Vitamin C (B Complex With Vitamin C) 1 Each Tablet 1 Each PO 12/04/17 Reported Calcitriol 0.25 Mcg Capsule 0.25 Mcg PO ,05/24/16 Reported Warfarin Sodium 5 Mg Tablet 7.5 Mg PO DAILY 05/24/16 Reported Loratadine 10 Mg Tablet 10 Mg PO QHS 10/16/14 Reported Tamsulosin Hcl 0.4 Mg Cap.er.24h 0.4 Mg PO QHS 10/16/14 Reported Atorvastatin Calcium 10 Mg Tablet 10 Mg PO HS 10/16/14 Reported Flonase (Fluticasone Propionate) 16 Gm Ben Bolt.susp 2 Ben Bolt NS BID 01/06/[address] of chest 1. Cardiomegaly with very small right pleural effusion. 2. Mild emphysematous changes. 3. Small focal areas of infiltrate/atelectasis is seen throughout the right lung. Dependent subsegmental atelectasis is seen involving both lower lobes, right greater than left. Impression . IMPRESSION: 1. Acute on chronic respiratory failure secondary to acute systolic congestive heart failure, acute exacerbation of chronic obstructive pulmonary disease, acute bronchitis 2. Abnormal chest x-ray/ ct chest 3. Acute systolic congestive heart failure. 4. Acute exacerbation of chronic obstructive pulmonary disease. 5. Acute bronchitis. 6. Hypercalcemia, primary hyperparathyroidism, his confusion could be 2/2 to hypercalcemia 7. Atrial fibrillation, rate controlled, on Coumadin. 8. Obstructive sleep apnea-hypopnea syndrome. 9. Chronic kidney disease. Plan . 1. Titrate FiO2 to keep O2 saturation 90%. abg reviewed, 2. Use BiPAP p.r.n. during day and continuously at night. Setting was reviewed. 3. Further tx of hypercalcemia per primary doctor. off calcitetrol 4. ct reviewed, 5. Continue bronchodilator. 6. solumedrol to 80 q 8hrs 7. Continue antibiotic. 8. Continue anticoagulation. Monitor INR. 9. confusion likely due to hypercalcemia/ dc ativan discussed w pt, rt ALIYAH CALLE MD Mar 14, 2019 09:57
[2019-03-14] MEDS: ASCORBIC ACID 500 MG TABLET PO SCH ×2 (10:46→21:00)
[2019-03-14] MEDS: ROFLUMILAST 500 MCG TABLET. PO SCH (10:46)
[2019-03-14] MEDS: LACTOBACILLUS RHAMNOSUS GG 1 CAPSULE. PO SCH ×2 (10:46→21:00)
[2019-03-14] MEDS: CETIRIZINE HCL 10 MG TABLET. PO SCH (10:47)
[2019-03-14] MEDS: FUROSEMIDE 40 MG TABLET. PO SCH (10:47)
[2019-03-14] MEDS: METOPROLOL SUCC 24HR ER 25 MG TAB.ER.24H. PO SCH (10:48)
[2019-03-14 11:22] VITALS: BP 139/73
[2019-03-14 11:31] LABS: ALBUMIN 2.6 g/dL (3.4-5.0); CREATININE 1.8 mg/dL (0.7-1.3); GFR 36.8; PHOSPHORUS 3.7 mg/dL (2.6-4.7); POTASSIUM 3.9 mmol/L (3.5-5.1)
--- NOTE | 2019-03-14 12:53 | PDOC ---
PROGRESS NOTES Chief Complaint Chief Complaint 1. Altered mental status, acute delirium on cognitive decline - 2. vCHF exacerbation diastolic 3. HYpoxic respi failure , HYPERCAPNIC on BIPAP and VM Hazy infiltrates or edema with mild worsening from the recent exam. Cor pulmonale with moderate pulmonary hypertension with a mPA pressure of 35 mmHg, 4,.JAYDON on CKD stage 3- 4 5. MPI< EF 47%, FIXED inferior wall defect. Mild LV dysfunction. EF 47% 6. 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 Hypomagnesemia 8. hypoxia 9. acute metabolic encephalopathy 10. HYPERCALCEMIA ADMIT TELE BIPAP SUPPORT NOW D/W RN on floor PULM CONSULT NEUROLOGY CONSULT ABG NOW home meds D/C CALCITROL iv zosyn iv lasix 40mg x 1 now History of Present Illness History of Present Illness w/u calcium, check ionizied hyper parathyroid PT and OT consult renal, she has followed hyperthyroid Vitals Vitals Vital Signs Date Time Temp Pulse Resp B/P (MAP) Pulse Ox O2 Delivery O2 Flow Rate FiO2 03/14/19 12:03 Nasal Cannula 1.5 03/14/19 11:22 98.3 83 20 139/73 (95) 91 98.3 Physical Exam General: Alert, Cooperative, No acute distress, mild distress Heart: Regular rate, No murmurs Lungs: Other (decrease bs) Abdomen: Normal bowel sounds, Soft Extremities: No clubbing Skin: No rashes Labs LABS Laboratory Tests Test 03/14/19 06:11 Prothrombin Time 34.0 SEC (11.7-14.0) Prothromb Time International Ratio 3.4 (0.8-1.1) Sodium Level 145 mmol/L (136-145) Potassium Level 3.9 mmol/L (3.5-5.1) Chloride Level 107 mmol/L (98-107) Carbon Dioxide Level 32 mmol/L (21-32) Anion Gap 6 (6-14) Blood Urea Nitrogen 55 mg/dL (8-26) Creatinine 1.8 mg/dL (0.7-1.3) Estimated GFR (Cockcroft-Gault) 36.8 Glucose Level 157 mg/dL (70-99) Calcium Level 11.0 mg/dL (8.5-10.1) Phosphorus Level 3.7 mg/dL (2.6-4.7) Albumin 2.6 g/dL (3.4-5.0) Assessment and Plan Assessmemt and Plan Problems Medical Problems: (1) Acute kidney injury superimposed on CKD Status: Acute (2) Acute metabolic encephalopathy Status: Acute (3) Acute on chronic diastolic heart failure Status: Acute (4) COPD (chronic obstructive pulmonary disease) Status: Chronic (5) Dehydration Status: Acute (6) Delirium Status: Acute (7) Hypercalcemia Status: Acute (8) Hyperparathyroidism Status: Chronic (9) Hypomagnesemia Status: Acute (10) Respiratory failure with hypoxia Status: Acute Comment Review of Relevant I have reviewed the following items aron (where applicable) has been applied. Labs Laboratory Tests Test 03/13/19 05:20 03/14/19 06:11 White Blood Count 6.2 x10^3/uL (4.0-11.0) Red Blood Count 2.92 x10^6/uL (4.30-5.70) Hemoglobin 9.0 g/dL (13.0-17.5) Hematocrit 27.7 % (39.0-53.0) Mean Corpuscular Volume 95 fL (79-100) Mean Corpuscular Hemoglobin 31 pg (25-35) Mean Corpuscular Hemoglobin Concent 33 g/dL (31-37) Red Cell Distribution Width 14.2 % (11.5-14.5) Platelet Count 180 x10^3/uL (140-400) Neutrophils (%) (Auto) 93 % (31-73) Lymphocytes (%) (Auto) 6 % (24-48) Monocytes (%) (Auto) 1 % (0-9) Eosinophils (%) (Auto) 0 % (0-3) Basophils (%) (Auto) 0 % (0-3) Neutrophils # (Auto) 5.8 x10^3/uL (1.8-7.7) Lymphocytes # (Auto) 0.3 x10^3/uL (1.0-4.8) Monocytes # (Auto) 0.1 x10^3/uL (0.0-1.1) Eosinophils # (Auto) 0.0 x10^3/uL (0.0-0.7) Basophils # (Auto) 0.0 x10^3/uL (0.0-0.2) Segmented Neutrophils % 93 % (35-66) Band Neutrophils % 1 % (0-9) Lymphocytes % 6 % (24-48) Platelet Estimate Adequate (ADEQUATE) Prothrombin Time 24.4 SEC (11.7-14.0) 34.0 SEC (11.7-14.0) Prothromb Time International Ratio 2.2 (0.8-1.1) 3.4 (0.8-1.1) Sodium Level 145 mmol/L (136-145) 145 mmol/L (136-145) Potassium Level 4.4 mmol/L (3.5-5.1) 3.9 mmol/L (3.5-5.1) Chloride Level 108 mmol/L (98-107) 107 mmol/L (98-107) Carbon Dioxide Level 30 mmol/L (21-32) 32 mmol/L (21-32) Anion Gap 7 (6-14) 6 (6-14) Blood Urea Nitrogen 48 mg/dL (8-26) 55 mg/dL (8-26) Creatinine 1.6 mg/dL (0.7-1.3) 1.8 mg/dL (0.7-1.3) Estimated GFR (Cockcroft-Gault) 42.1 36.8 BUN/Creatinine Ratio 30 (6-20) Glucose Level 154 mg/dL (70-99) 157 mg/dL (70-99) Calcium Level 11.4 mg/dL (8.5-10.1) 11.0 mg/dL (8.5-10.1) Total Bilirubin 0.9 mg/dL (0.2-1.0) Aspartate Amino Transf (AST/SGOT) 29 U/L (15-37) Alanine Aminotransferase (ALT/SGPT) 25 U/L (16-63) Alkaline Phosphatase 81 U/L (46-116) Total Protein 6.6 g/dL (6.4-8.2) Albumin 2.6 g/dL (3.4-5.0) 2.6 g/dL (3.4-5.0) Albumin/Globulin Ratio 0.7 (1.0-1.7) Phosphorus Level 3.7 mg/dL (2.6-4.7) Laboratory Tests Test 03/14/19 06:11 Prothrombin Time 34.0 SEC (11.7-14.0) Prothromb Time International Ratio 3.4 (0.8-1.1) Sodium Level 145 mmol/L (136-145) Potassium Level 3.9 mmol/L (3.5-5.1) Chloride Level 107 mmol/L (98-107) Carbon Dioxide Level 32 mmol/L (21-32) Anion Gap 6 (6-14) Blood Urea Nitrogen 55 mg/dL (8-26) Creatinine 1.8 mg/dL (0.7-1.3) Estimated GFR (Cockcroft-Gault) 36.8 Glucose Level 157 mg/dL (70-99) Calcium Level 11.0 mg/dL (8.5-10.1) Phosphorus Level 3.7 mg/dL (2.6-4.7) Albumin 2.6 g/dL (3.4-5.0) Medications Current Medications Sodium Chloride 1,000 ml @ 1,000 mls/hr 1X ONCE IV Last administered on 03/12/19at 06:47; Start 03/12/19 at 06:00; Stop 03/12/19 at 06:59; Status DC Sodium Chloride 1,000 ml @ 1,000 mls/hr 1X ONCE IV Last administered on 03/12/19at 11:27; Start 03/12/19 at 08:45; Stop 03/12/19 at 09:44; Status DC Ondansetron HCl (Zofran) 4 mg PRN Q8HRS PRN IV NAUSEA/VOMITING; Start 03/12/19 at 08:45; Stop 03/13/19 at 08:44; Status DC Ascorbic Acid (Vitamin C) 500 mg BID PO Last administered on 03/14/19at 10:49; Start 03/12/19 at 21:00 Atorvastatin Calcium (Lipitor) 10 mg HS PO Last administered on 03/13/19at 21:31; Start 03/12/19 at 21:00 Calcitriol (Rocaltrol) 0.25 mcg QMTH@0900 PO ; Start 03/14/19 at 09:00; Stop 03/12/19 at 10:49; Status DC Fluticasone Propionate (Flonase) 2 spray BID NS Last administered on 03/13/19at 21:31; Start 03/12/19 at 21:00 Furosemide (Lasix) 40 mg DAILY PO Last administered on 03/14/19 10:49; Start 03/12/19 at 11:00 Guaifenesin (Robitussin Dm) 10 ml PRN Q6HRS PRN PO COUGH Last administered on 03/12/19 23:39; Start 03/12/19 at 10:00 Albuterol/ Ipratropium (Duoneb) 3 ml QID NEB Last administered on 03/14/19 12:03; Start 03/12/19 at 13:00 Metoprolol Succinate (Toprol Xl) 12.5 mg DAILY PO Last administered on 03/14/19 10:49; Start 03/12/19 at 11:00 Polyethylene Glycol (miraLAX PACKET) 17 gm PRN DAILY PRN PO CONSTIPATION; Start 03/13/19 at 09:00 Roflumilast (Daliresp) 500 mcg DAILY PO Last administered on 03/14/19 10:49; Start 03/12/19 at 11:00 Tamsulosin HCl (Flomax) 0.4 mg QHS PO Last administered on 03/13/19 21:31; Start 03/12/19 at 21:00 Warfarin Sodium (Coumadin) 7.5 mg DAILY16 PO Last administered on 03/13/19 15:04; Start 03/12/19 at 16:00 Cetirizine HCl (ZyrTEC) 10 mg DAILY PO Last administered on 03/14/19 10:49; S tart 03/12/19 at 11:00 Piperacillin Sod/ Tazobactam Sod 3.375 gm/Sodium Chloride 50 ml @ 100 mls/hr 1X ONCE IV Last administered on 03/12/19 11:27; Start 03/12/19 at 11:00; Stop 03/12/19 at 11:29; Status DC Warfarin Sodium (Coumadin Per Pharmacy) 1 each PRN DAILY PRN MC SEE COMMENTS Last administered on 03/13/19 12:56; Start 03/12/19 at 10:30 Pharmacy Consult (C.diff Med Screen By Rx) 1 each 1X ONCE MC ; Start 03/12/19 at 10:30; Stop 03/12/19 at 16:14; Status DC Methylprednisolone Sodium Succinate (SOLU-Medrol 125MG VIAL) 100 mg Q6HRS IV Last administered on 03/13/19 06:17; Start 03/12/19 at 12:00; Stop 03/13/19 at 08:59; Status DC Furosemide (Lasix) 40 mg 1X ONCE IVP Last administered on 03/12/19at 11:27; Start 03/12/19 at 11:00; Stop 03/12/19 at 11:01; Status DC Piperacillin Sod/ Tazobactam Sod 3.375 gm/Sodium Chloride 50 ml @ 100 mls/hr Q6HRS IV Last administered on 03/14/19at 05:39; Start 03/12/19 at 18:00 Lactobacillus Rhamnosus (Culturelle) 1 cap BID PO Last administered on 03/14/19at 10:49; Start 03/12/19 at 21:00 Albuterol Sulfate (Ventolin Neb Soln) 2.5 mg 6XDAY NEB Last administered on 03/13/19at 08:52; Start 03/12/19 at 19:00; Stop 03/13/19 at 21:54; Status DC Methylprednisolone Sodium Succinate (SOLU-Medrol 125MG VIAL) 80 mg Q8HRS IV Last administered on 03/14/19at 05:51; Start 03/13/19 at 14:00 Lorazepam (Ativan) 0.5 mg PRN Q8HRS PRN PO ANXIETY / AGITATION Last administered on 03/13/19at 21:40; Start 03/13/19 at 09:15; Stop 03/14/19 at 09:58; Status DC Albuterol Sulfate (Ventolin Neb Soln) 2.5 mg PRN DAILY PRN NEB SOB (SEE PRN TIMES BELOW) Last administered on 03/14/19at 00:10; Start 03/13/19 at 22:00 Barium Sulfate (Varibar Thin Liquid Apple) 148 gm 1X ONCE PO ; Start 03/14/19 at 08:15; Stop 03/14/19 at 08:17; Status DC Active Scripts Active Daliresp (Roflumilast) 500 Mcg Tablet 500 Mcg PO DAILY Guaifenesin Dm Syrup (Guaifenesin/Dextromethorphan) 5 Ml Syrup 10 Ml PO PRN Q6HRS PRN 30 Days Furosemide 40 Mg Tablet 40 Mg PO DAILY Amox Tr-K Clv 875-125 Mg Tab (Amoxicillin/Potassium Clav) 1 Each Tablet 1 Tab PO BID Xanax (Alprazolam) 0.5 Mg Tablet 0.5 Mg PO PRN Q6HRS PRN Reported Trazodone Hcl 50 Mg Tablet 50 Mg PO HS Ranitidine Hcl 150 Mg Capsule 150 Mg PO DAILY Magnesium (Magnesium Oxide) 400 Mg Capsule 400 Mg PO DAILY Miralax (Polyethylene Glycol 3350) 119 Gm Powder 17 Gm PO PRN DAILY PRN Metoprolol Succinate ( Xl ) (Metoprolol Succinate) 25 Mg Tab.er.24h 12.5 Mg PO DAILY Duoneb 0.5-3(2.5) Mg/3 Ml (Albuterol/Ipratropium) 3 Ml Ampul.neb 3 Ml NEB QID Ascorbic Acid 500 Mg Tablet 500 Mg PO BID Super B Complex-Vitamin C (B Complex With Vitamin C) 1 Each Tablet 1 Each PO Calcitriol 0.25 Mcg Capsule 0.25 Mcg PO MO, Warfarin Sodium 5 Mg Tablet 7.5 Mg PO DAILY Loratadine 10 Mg Tablet 10 Mg PO QHS Tamsulosin Hcl 0.4 Mg Cap.er.24h 0.4 Mg PO QHS Atorvastatin Calcium 10 Mg Tablet 10 Mg PO HS Flonase (Fluticasone Propionate) 16 Gm [place].susp 2 [place] NS BID Vitals/I & O Vital Sign - Last 24 Hours 03/13/19 03/13/19 03/13/19 03/13/19 15:03 16:57 19:30 19:55 Temp 98.7 98.3 98.7 98.3 Pulse 98 99 Resp 16 20 B/P (MAP) 123/63 (83) 115/71 (86) Pulse Ox 94 94 93 92 O2 Delivery Nasal Cannula Nasal Cannula Nasal Cannula Nasal Cannula O2 Flow Rate 1.5 1.5 1.5 1.5 03/13/19 03/13/19 03/13/19 03/14/19 20:00 23:30 23:54 02:13 Temp 98.2 98.2 Pulse 91 Resp 28 B/P (MAP) 130/75 (93) Pulse Ox 98 O2 Delivery Nasal Cannula BiPAP/CPAP BiPAP/CPAP BiPAP/CPAP O2 Flow Rate 1.5 03/14/19 03/14/19 03/14/19 03/14/19 03:30 05:03 07:00 08:15 Temp 97.6 98.7 97.6 98.7 Pulse 80 90 Resp 22 22 B/P (MAP) 140/76 (97) 129/82 (98) Pulse Ox 98 96 97 O2 Delivery BiPAP/CPAP BiPAP/CPAP Room Air Nasal Cannula O2 Flow Rate 1.5 03/14/19 03/14/19 03/14/19 10:49 11:22 12:03 Temp 98.3 98.3 Pulse 90 83 Resp 20 B/P (MAP) 129/82 139/73 (95) Pulse Ox 91 O2 Delivery Nasal Cannula Nasal Cannula O2 Flow Rate 1.5 1.5 Intake and Output 03/13/19 03/13/19 03/14/19 15:00 23:00 07:00 Intake Total 200 ml 100 ml 500 ml Output Total 200 ml 300 ml Balance 0 ml 100 ml 200 ml JEMAL HOLT MD Mar 14, 2019 12:53
[2019-03-14 15:00] VITALS: BP 109/60
[2019-03-14] MEDS: WARFARIN 7.5 MG TABLET. PO SCH (16:22)
--- NOTE | 2019-03-14 16:33 | NUR ---
SAV consulted for dc planning. Chart reviewed and SAV confirmed with Nika at [facility] pt is SNU resident and is able to return upon dc. PT/OT recommends SNU. Will continue to follow.
--- NOTE | 2019-03-14 17:13 | PDOC ---
Renal-Progress Notes Subjective Notes Notes CONFUSED History of Present Illness Hx of present illness JUST LEFT THE HOSPITAL AND NOW BACK WITH SOME CONFUSION. SOME SOB AND BEING E VALUATED BY PULMONARY Vitals Vitals Vital Signs Date Time Temp Pulse Resp B/P (MAP) Pulse Ox O2 Delivery O2 Flow Rate FiO2 03/14/19 15:00 97.3 82 20 109/60 (76) 91 Nasal Cannula 1.5 97.3 Weight Weight [ ] I.O. Intake and Output Intake and Output 03/14/19 07:00 Intake Total 800 ml Output Total 500 ml Balance 300 ml Intake Oral 700 ml IV Total 100 ml Output Urine Total 500 ml # Voids 1 Labs Labs Laboratory Tests Test 03/14/19 06:11 Prothrombin Time 34.0 SEC (11.7-14.0) Prothromb Time International Ratio 3.4 (0.8-1.1) Sodium Level 145 mmol/L (136-145) Potassium Level 3.9 mmol/L (3.5-5.1) Chloride Level 107 mmol/L (98-107) Carbon Dioxide Level 32 mmol/L (21-32) Anion Gap 6 (6-14) Blood Urea Nitrogen 55 mg/dL (8-26) Creatinine 1.8 mg/dL (0.7-1.3) Estimated GFR (Cockcroft-Gault) 36.8 Glucose Level 157 mg/dL (70-99) Calcium Level 11.0 mg/dL (8.5-10.1) Phosphorus Level 3.7 mg/dL (2.6-4.7) Albumin 2.6 g/dL (3.4-5.0) Review of Systems Constitutional: yes: other (CONFUSED) Physical Exam General Appearance: no apparent distress Skin: warm Respiratory: decreased breath sounds Heart: S1S2 Abdomen: soft Genitourinary: bladder flat Extremities: pulses present, atrophy Neurology: confused Musculoskeletal: Osteoarthritis Assessment Assessment IMP THIS IS A 78 YR OLD WITH SOB. CURRENTLY UNDERGOING PULMONARY EVALUATION. HAS A CR OF 1.5-1.8 AT BASELINE C/W CKD STAGE 3. CR 1.6 TO 1.8 NOW. HX OF PRIMARY HYPERPARATHYROIDISM AND CALCIUM HAS BEEN MILDLY AND CHRONICALLY ELEVATED. HAS SEEN MY PARTNER DR BRODERICK AND DR JOYCE FOR SURGICAL CONSULTATION. DID NOT GO THROUGH SURGERY HE HAS HAD DIFFICULTY WITH ANESTHESIA IN THE PAST DURING A CHOLY SOME YEARS AGO. HE ALSO HAS HAD RECURRENT LOW MAG LEVELS. NO HX GIVEN. HAS BEEN ON LASIX. NO NEPHROTOXINS NOTED. MAY NEED TO REVISIT PARATHYROIDECTOMY AGAIN PLAN WILL REPEAT PO4, MAG AND PTH CONT WITH LASIX WILL D/W MICHELLE WHYTE MD Mar 14, 2019 17:13
[2019-03-14 19:51] VITALS: BP 134/71
[2019-03-14] MEDS: ATORVASTATIN CALCIUM 10 MG TABLET. PO SCH (21:00)
[2019-03-14] MEDS: TAMSULOSIN 0.4 MG CAP.ER.24H. PO SCH (21:00)
[2019-03-14] MEDS ORDERED: LORazepam 0.5 MG TABLET PO PRN (22:15)
[2019-03-14 23:24] VITALS: BP 121/56
[2019-03-15 03:40] VITALS: BP 145/85
[2019-03-15 04:39] LABS: BASO % 0 % (0-3); EOS % 0 % (0-3); HEMATOCRIT 27.6 % (39.0-53.0); LYMPH # 0.2 x10^3/uL (1.0-4.8); LYMPH % 2 % (24-48); MEAN CORPUSCULAR HEMOGLOBIN 31 pg (25-35); MEAN CORPUSCULAR HGB CONC 33 g/dL (31-37); MEAN CORPUSCULAR VOLUME 95 fL (79-100); MONO # 0.1 x10^3/uL (0.0-1.1); MONO % 1 % (0-9); NEUT # 10.4 x10^3/uL (1.8-7.7); NEUT % 96 % (31-73); PLATELET COUNT 189 x10^3/uL (140-400); RED BLOOD COUNT 2.91 x10^6/uL (4.30-5.70); RED CELL DISTRIBUTION WIDTH 14.8 % (11.5-14.5); WHITE BLOOD COUNT 10.8 x10^3/uL (4.0-11.0)
[2019-03-15 04:55] LABS: PROTHROMBIN TIME PATIENT 37.5 SEC (11.7-14.0)
[2019-03-15 05:08] LABS: ALBUMIN 2.6 g/dL (3.4-5.0); ALBUMIN/GLOBULIN RATIO 0.7 (1.0-1.7); CREATININE 1.8 mg/dL (0.7-1.3); GFR 36.8; POTASSIUM 4.2 mmol/L (3.5-5.1); TOTAL BILIRUBIN 0.5 mg/dL (0.2-1.0); TOTAL PROTEIN 6.4 g/dL (6.4-8.2)
[2019-03-15] MEDS: PIPERACILLIN/TAZOBACTAM 3.375 GM in IV NORMAL SALINE 50ML 50 ML IV SCH ×2 (06:28→11:47)
[2019-03-15] MEDS: methylPREDNISolone SOD SUCC PF 125 MG/2 ML VIAL. IV SCH ×2 (06:28→14:00)
[2019-03-15 07:30] VITALS: BP 144/77
[2019-03-15] MEDS: IPRATRPIUM/ALBUTEROL 0.5/2.5MG 3 ML NEBU. NEB SCH ×3 (08:02→15:55)
[2019-03-15] MEDS: LACTOBACILLUS RHAMNOSUS GG 1 CAPSULE. PO SCH (09:00)
--- NOTE | 2019-03-15 10:18 | PDOC2 ---
YOLA GROVE BEER MERCHANT 03/15/19 1018: CONSULT Date of Consult Date of Consult DATE: 03/15/19 TIME: 10:09 Reason for Consult Reason for Consult: hyperparathyroidism Referring Physician Referring Physician: Dr Monet Identification/Chief Complaint Chief Complaint SOA, confusion Source Source: Chart review, Patient History of Present Illness Reason for Visit: 2 hospital admissions in last 2 weeks for SOA, blood pressure issues. Went to rehab, returned with confusion, ongoing hypoxia issues. He does have a hx of primary hyperparathyroidism--per significant other due to anesthesia time did not remove with vilma(I will have to review with Dr Joyce) Past Medical History Cardiovascular: AFIB, CAD, CHF, HTN, Hyperlipidemia, Other Pulmonary: COPD, Pneumonia, Other CENTRAL NERVOUS SYSTEM: Other GI: Constipation, Hemorrhoids, Other Heme/Onc: Anemia NOS Hepatobiliary: No pertinent hx Psych: Anxiety, Depression Musculoskeletal: Osteoarthritis Rheumatologic: No pertinent hx Infectious disease: No pertinent hx Renal/: Chronic renal insuff, Benign prostatic enlarg., Other Endocrine: No pertinent hx Past Surgical History Past Surgical History: Pacemaker, Cholecystectomy, Cataract Removal, Hernia Repair, Other Family History Family History: Heart Disease Social History Quit ALCOHOL: none Drugs: None Lives: with Family Domestic Violence: Neg Current Problem List Problem List Problems Medical Problems: (1) Acute kidney injury superimposed on CKD Status: Acute (2) Acute metabolic encephalopathy Status: Acute (3) Acute on chronic diastolic heart failure Status: Acute (4) COPD (chronic obstructive pulmonary disease) Status: Chronic (5) Dehydration Status: Acute (6) Delirium Status: Acute (7) Hypercalcemia Status: Acute (8) Hyperparathyroidism Status: Chronic (9) Hypomagnesemia Status: Acute (10) Respiratory failure with hypoxia Status: Acute Current Medications Current Medications Current Medications Sodium Chloride 1,000 ml @ 1,000 mls/hr 1X ONCE IV Last administered on 03/12/19at 06:47; Start 03/12/19 at 06:00; Stop 03/12/19 at 06:59; Status DC Sodium Chloride 1,000 ml @ 1,000 mls/hr 1X ONCE IV Last administered on 03/12/19at 11:27; Start 03/12/19 at 08:45; Stop 03/12/19 at 09:44; Status DC Ondansetron HCl (Zofran) 4 mg PRN Q8HRS PRN IV NAUSEA/VOMITING; Start 03/12/19 at 08:45; Stop 03/13/19 at 08:44; Status DC Ascorbic Acid (Vitamin C) 500 mg BID PO Last administered on 03/14/19 21:02; Start 03/12/19 at 21:00 Atorvastatin Calcium (Lipitor) 10 mg HS PO Last administered on 03/14/19 21:01; Start 03/12/19 at 21:00 Calcitriol (Rocaltrol) 0.25 mcg QMTH@0900 PO ; Start 03/14/19 at 09:00; Stop 03/12/19 at 10:49; Status DC Fluticasone Propionate (Flonase) 2 spray BID NS Last administered on 03/14/19 21:02; Start 03/12/19 at 21:00 Furosemide (Lasix) 40 mg DAILY PO Last administered on 03/14/19 10:49; Start 03/12/19 at 11:00 Guaifenesin (Robitussin Dm) 10 ml PRN Q6HRS PRN PO COUGH Last administered on 03/12/19 23:39; Start 03/12/19 at 10:00 Albuterol/ Ipratropium (Duoneb) 3 ml QID NEB Last administered on 03/15/19 08:02; Start 03/12/19 at 13:00 Metoprolol Succinate (Toprol Xl) 12.5 mg DAILY PO Last administered on 03/14/19 10:49; Start 03/12/19 at 11:00 Polyethylene Glycol (miraLAX PACKET) 17 gm PRN DAILY PRN PO CONSTIPATION; Start 03/13/19 at 09:00 Roflumilast (Daliresp) 500 mcg DAILY PO Last administered on 03/14/19 10:49; Start 03/12/19 at 11:00 Tamsulosin HCl (Flomax) 0.4 mg QHS PO Last administered on 03/14/19 21:01; Start 03/12/19 at 21:00 Warfarin Sodium (Coumadin) 7.5 mg DAILY16 PO Last administered on 03/14/19 16:22; Start 03/12/19 at 16:00 Cetirizine HCl (ZyrTEC) 10 mg DAILY PO Last administered on 03/14/19 10:49; Start 03/12/19 at 11:00 Piperacillin Sod/ Tazobactam Sod 3.375 gm/Sodium Chloride 50 ml @ 100 mls/hr 1X ONCE IV Last administered on 03/12/19at 11:27; Start 03/12/19 at 11:00; Stop 03/12/19 at 11:29; Status DC Warfarin Sodium (Coumadin Per Pharmacy) 1 each PRN DAILY PRN MC SEE COMMENTS Last administered on 03/13/19at 12:56; Start 03/12/19 at 10:30 Pharmacy Consult (C.diff Med Screen By Rx) 1 each 1X ONCE MC ; Start 03/12/19 at 10:30; Stop 03/12/19 at 16:14; Status DC Methylprednisolone Sodium Succinate (SOLU-Medrol 125MG VIAL) 100 mg Q6HRS IV Last administered on 03/13/19 06:17; Start 03/12/19 at 12:00; Stop 03/13/19 at 08:59; Status DC Furosemide (Lasix) 40 mg 1X ONCE IVP Last administered on 03/12/19 11:27; Start 03/12/19 at 11:00; Stop 03/12/19 at 11:01; Status DC Piperacillin Sod/ Tazobactam Sod 3.375 gm/Sodium Chloride 50 ml @ 100 mls/hr Q6HRS IV Last administered on 03/15/19 06:28; Start 03/12/19 at 18:00 Lactobacillus Rhamnosus (Culturelle) 1 cap BID PO Last administered on 03/14/19at 21:02; Start 03/12/19 at 21:00 Albuterol Sulfate (Ventolin Neb Soln) 2.5 mg 6XDAY NEB Last administered on 08:52; Start 03/12/19 at 19:00; Stop 03/13/19 at 21:54; Status DC Methylprednisolone Sodium Succinate (SOLU-Medrol 125MG VIAL) 80 mg Q8HRS IV Last administered on 03/15/19 06:28; Start 03/13/19 at 14:00 Lorazepam (Ativan) 0.5 mg PRN Q8HRS PRN PO ANXIETY / AGITATION Last administered on 03/13/19 21:40; Start 03/13/19 at 09:15; Stop 03/14/19 at 09:58; Status DC Albuterol Sulfate (Ventolin Neb Soln) 2.5 mg PRN DAILY PRN NEB SOB (SEE PRN TIMES BELOW) Last administered on 03/14/19at 00:10; Start 03/13/19 at 22:00 Barium Sulfate (Varibar Thin Liquid Apple) 148 gm 1X ONCE PO ; Start 03/14/19 at 08:15; Stop 03/14/19 at 08:17; Status DC Lorazepam (Ativan) 0.5 mg PRN QHS PRN PO ANXIETY / AGITATION Last administered on 03/14/19at 22:59; Start 03/14/19 at 22:15 Active Scripts Active Daliresp (Roflumilast) 500 Mcg Tablet 500 Mcg PO DAILY Guaifenesin Dm Syrup (Guaifenesin/Dextromethorphan) 5 Ml Syrup 10 Ml PO PRN Q6HRS PRN 30 Days Furosemide 40 Mg Tablet 40 Mg PO DAILY Amox Tr-K Clv 875-125 Mg Tab (Amoxicillin/Potassium Clav) 1 Each Tablet 1 Tab PO BID Xanax (Alprazolam) 0.5 Mg Tablet 0.5 Mg PO PRN Q6HRS PRN Reported Trazodone Hcl 50 Mg Tablet 50 Mg PO HS Ranitidine Hcl 150 Mg Capsule 150 Mg PO DAILY Magnesium (Magnesium Oxide) 400 Mg Capsule 400 Mg PO DAILY Miralax (Polyethylene Glycol 3350) 119 Gm Powder 17 Gm PO PRN DAILY PRN Metoprolol Succinate ( Xl ) (Metoprolol Succinate) 25 Mg Tab.er.24h 12.5 Mg PO DAILY Duoneb 0.5-3(2.5) Mg/3 Ml (Albuterol/Ipratropium) 3 Ml Ampul.neb 3 Ml NEB QID Ascorbic Acid 500 Mg Tablet 500 Mg PO BID Super B Complex-Vitamin C (B Complex With Vitamin C) 1 Each Tablet 1 Each PO Calcitriol 0.25 Mcg Capsule 0.25 Mcg PO , Warfarin Sodium 5 Mg Tablet 7.5 Mg PO DAILY Loratadine 10 Mg Tablet 10 Mg PO QHS Tamsulosin Hcl 0.4 Mg Cap.er.24h 0.4 Mg PO QHS Atorvastatin Calcium 10 Mg Tablet 10 Mg PO HS Flonase (Fluticasone Propionate) 16 Gm [place].susp 2 [place] NS BID Allergies Allergies: Coded Allergies: No Known Drug Allergies (Unverified , 02/05/18) ROS General: No: Chills, Other (fevers ) PSYCHOLOGICAL ROS: No: Anxiety, Depression Eyes: No Blurry vision, No Double vision HEENT: No: Heacaches, Sore Throat Hematological and Lymphatic: No: Bleeding Problems, Blood Clots Respiratory: YES: Shortness of breath; No: Cough Cardiovascular: No Chest Pain, No Palpitations Gastrointestinal: No Nausea, No Vomiting Genitourinary: No Dysuria, No Hematuria Musculoskeletal: No Joint Pain, No Muscle Pain Neurological: No Impaired Coord/balance, No Numbness/Tingling Skin: No Pruritus, No Rash Physical Exam General: Alert, Oriented X3, Cooperative, No acute distress HEENT: PERRLA, Mucous membr. moist/pink Lungs: Other (o2 in place) Heart: Regular rate, Normal S1, Normal S2 Abdomen: Soft, No tenderness Extremities: No clubbing, No cyanosis Skin: No rashes, No breakdown Neuro: Normal gait, Normal speech Psych/Mental Status: Mental status NL, Mood NL MUSCULOSKELETAL: No deformity, No swelling Vitals VITALS Vital Signs Date Time Temp Pulse Resp B/P (MAP) Pulse Ox O2 Delivery O2 Flow Rate FiO2 03/15/19 08:03 Nasal Cannula 2.0 03/15/19 07:30 97.8 81 18 144/77 (99) 97 97.8 Labs Labs Laboratory Tests Test 03/14/19 06:11 03/14/19 20:52 03/15/19 03:20 Prothrombin Time 34.0 SEC (11.7-14.0) 37.5 SEC (11.7-14.0) Prothromb Time International Ratio 3.4 (0.8-1.1) 3.8 (0.8-1.1) Sodium Level 145 mmol/L (136-145) 146 mmol/L (136-145) Potassium Level 3.9 mmol/L (3.5-5.1) 4.2 mmol/L (3.5-5.1) Chloride Level 107 mmol/L (98-107) 107 mmol/L (98-107) Carbon Dioxide Level 32 mmol/L (21-32) 34 mmol/L (21-32) Anion Gap 6 (6-14) 5 (6-14) Blood Urea Nitrogen 55 mg/dL (8-26) 62 mg/dL (8-26) Creatinine 1.8 mg/dL (0.7-1.3) 1.8 mg/dL (0.7-1.3) Estimated GFR (Cockcroft-Gault) 36.8 36.8 Glucose Level 157 mg/dL (70-99) 154 mg/dL (70-99) Calcium Level 11.0 mg/dL (8.5-10.1) 11.0 mg/dL (8.5-10.1) Phosphorus Level 3.7 mg/dL (2.6-4.7) Albumin 2.6 g/dL (3.4-5.0) 2.6 g/dL (3.4-5.0) Glucose (Fingerstick) 143 mg/dL (70-99) White Blood Count 10.8 x10^3/uL (4.0-11.0) Red Blood Count 2.91 x10^6/uL (4.30-5.70) Hemoglobin 9.0 g/dL (13.0-17.5) Hematocrit 27.6 % (39.0-53.0) Mean Corpuscular Volume 95 fL (79-100) Mean Corpuscular Hemoglobin 31 pg (25-35) Mean Corpuscular Hemoglobin Concent 33 g/dL (31-37) Red Cell Distribution Width 14.8 % (11.5-14.5) Platelet Count 189 x10^3/uL (140-400) Neutrophils (%) (Auto) 96 % (31-73) Lymphocytes (%) (Auto) 2 % (24-48) Monocytes (%) (Auto) 1 % (0-9) Eosinophils (%) (Auto) 0 % (0-3) Basophils (%) (Auto) 0 % (0-3) Neutrophils # (Auto) 10.4 x10^3/uL (1.8-7.7) Lymphocytes # (Auto) 0.2 x10^3/uL (1.0-4.8) Monocytes # (Auto) 0.1 x10^3/uL (0.0-1.1) Eosinophils # (Auto) 0.0 x10^3/uL (0.0-0.7) Basophils # (Auto) 0.0 x10^3/uL (0.0-0.2) BUN/Creatinine Ratio 34 (6-20) Ionized Calcium 1.56 mmol/L (1.13-1.32) Total Bilirubin 0.5 mg/dL (0.2-1.0) Aspartate Amino Transf (AST/SGOT) 29 U/L (15-37) Alanine Aminotransferase (ALT/SGPT) 35 U/L (16-63) Alkaline Phosphatase 70 U/L (46-116) Total Protein 6.4 g/dL (6.4-8.2) Albumin/Globulin Ratio 0.7 (1.0-1.7) Thyroid Stimulating Hormone (TSH) 0.263 uIU/mL (0.358-3.74) Laboratory Tests Test 03/14/19 20:52 03/15/19 03:20 Glucose (Fingerstick) 143 mg/dL (70-99) White Blood Count 10.8 x10^3/uL (4.0-11.0) Red Blood Count 2.91 x10^6/uL (4.30-5.70) Hemoglobin 9.0 g/dL (13.0-17.5) Hematocrit 27.6 % (39.0-53.0) Mean Corpuscular Volume 95 fL (79-100) Mean Corpuscular Hemoglobin 31 pg (25-35) Mean Corpuscular Hemoglobin Concent 33 g/dL (31-37) Red Cell Distribution Width 14.8 % (11.5-14.5) Platelet Count 189 x10^3/uL (140-400) Neutrophils (%) (Auto) 96 % (31-73) Lymphocytes (%) (Auto) 2 % (24-48) Monocytes (%) (Auto) 1 % (0-9) Eosinophils (%) (Auto) 0 % (0-3) Basophils (%) (Auto) 0 % (0-3) Neutrophils # (Auto) 10.4 x10^3/uL (1.8-7.7) Lymphocytes # (Auto) 0.2 x10^3/uL (1.0-4.8) Monocytes # (Auto) 0.1 x10^3/uL (0.0-1.1) Eosinophils # (Auto) 0.0 x10^3/uL (0.0-0.7) Basophils # (Auto) 0.0 x10^3/uL (0.0-0.2) Prothrombin Time 37.5 SEC (11.7-14.0) Prothromb Time International Ratio 3.8 (0.8-1.1) Sodium Level 146 mmol/L (136-145) Potassium Level 4.2 mmol/L (3.5-5.1) Chloride Level 107 mmol/L (98-107) Carbon Dioxide Level 34 mmol/L (21-32) Anion Gap 5 (6-14) Blood Urea Nitrogen 62 mg/dL (8-26) Creatinine 1.8 mg/dL (0.7-1.3) Estimated GFR (Cockcroft-Gault) 36.8 BUN/Creatinine Ratio 34 (6-20) Glucose Level 154 mg/dL (70-99) Calcium Level 11.0 mg/dL (8.5-10.1) Ionized Calcium 1.56 mmol/L (1.13-1.32) Total Bilirubin 0.5 mg/dL (0.2-1.0) Aspartate Amino Transf (AST/SGOT) 29 U/L (15-37) Alanine Aminotransferase (ALT/SGPT) 35 U/L (16-63) Alkaline Phosphatase 70 U/L (46-116) Total Protein 6.4 g/dL (6.4-8.2) Albumin 2.6 g/dL (3.4-5.0) Albumin/Globulin Ratio 0.7 (1.0-1.7) Thyroid Stimulating Hormone (TSH) 0.263 uIU/mL (0.358-3.74) Assessment/Plan Assessment/Plan SOA, hyperparathyroidism multiple issues including chronic resp failure, chf, afib on coumadin will have WES Palmer MD 03/15/19 1529: CONSULT Assessment/Plan Assessment/Plan pt seen, interviewed and examined daughter at bedside I know Mr Quintero from previous cholecystectomy presents a prohibitive surgical risk (neck exploration) given his significant comorbid issues (sestamibi scan does not localize) d/w him and his daughter recommend continued medial management no surgical plans for now Thanks for consult YOLA GROVE APRN Mar 15, 2019 10:18 WES JOYCE MD Mar 15, 2019 15:29
[2019-03-15] MEDS ORDERED: CINA30TA2 PO (10:54)
[2019-03-15] MEDS ORDERED: AMOX1TAB61 PO (10:59)
[2019-03-15] MEDS ORDERED: PRED-220 PO (10:59)
[2019-03-15] MEDS: ROFLUMILAST 500 MCG TABLET. PO SCH (11:44)
[2019-03-15] MEDS: ASCORBIC ACID 500 MG TABLET PO SCH (11:44)
[2019-03-15] MEDS: CETIRIZINE HCL 10 MG TABLET. PO SCH (11:44)
[2019-03-15 11:45] VITALS: BP 143/63
[2019-03-15] MEDS: METOPROLOL SUCC 24HR ER 25 MG TAB.ER.24H. PO SCH (11:45)
[2019-03-15] MEDS: FUROSEMIDE 40 MG TABLET. PO SCH (11:45)
[2019-03-15] MEDS: FLUTICASONE 50MCG/NASAL SPRAY 16GM BOTTLE. NS SCH (11:45)
--- NOTE | 2019-03-15 12:49 | PDOC ---
Renal-Progress Notes Subjective Notes Notes NOT CONFUSED History of Present Illness Hx of present illness STABLE Vitals Vitals Vital Signs Date Time Temp Pulse Resp B/P (MAP) Pulse Ox O2 Delivery O2 Flow Rate FiO2 03/15/19 11:50 Nasal Cannula 2.0 03/15/19 11:49 81 144/77 03/15/19 11:45 97.5 16 95 97.5 Weight Weight [ ] I.O. Intake and Output Intake and Output 03/15/19 07:00 Intake Total 600 ml Output Total 700 ml Balance -100 ml Intake Oral 600 ml Output Urine Total 700 ml # Voids 2 # Bowel Movements 1 Labs Labs Laboratory Tests Test 03/14/19 20:52 03/15/19 03:20 Glucose (Fingerstick) 143 mg/dL (70-99) White Blood Count 10.8 x10^3/uL (4.0-11.0) Red Blood Count 2.91 x10^6/uL (4.30-5.70) Hemoglobin 9.0 g/dL (13.0-17.5) Hematocrit 27.6 % (39.0-53.0) Mean Corpuscular Volume 95 fL (79-100) Mean Corpuscular Hemoglobin 31 pg (25-35) Mean Corpuscular Hemoglobin Concent 33 g/dL (31-37) Red Cell Distribution Width 14.8 % (11.5-14.5) Platelet Count 189 x10^3/uL (140-400) Neutrophils (%) (Auto) 96 % (31-73) Lymphocytes (%) (Auto) 2 % (24-48) Monocytes (%) (Auto) 1 % (0-9) Eosinophils (%) (Auto) 0 % (0-3) Basophils (%) (Auto) 0 % (0-3) Neutrophils # (Auto) 10.4 x10^3/uL (1.8-7.7) Lymphocytes # (Auto) 0.2 x10^3/uL (1.0-4.8) Monocytes # (Auto) 0.1 x10^3/uL (0.0-1.1) Eosinophils # (Auto) 0.0 x10^3/uL (0.0-0.7) Basophils # (Auto) 0.0 x10^3/uL (0.0-0.2) Prothrombin Time 37.5 SEC (11.7-14.0) Prothromb Time International Ratio 3.8 (0.8-1.1) Sodium Level 146 mmol/L (136-145) Potassium Level 4.2 mmol/L (3.5-5.1) Chloride Level 107 mmol/L (98-107) Carbon Dioxide Level 34 mmol/L (21-32) Anion Gap 5 (6-14) Blood Urea Nitrogen 62 mg/dL (8-26) Creatinine 1.8 mg/dL (0.7-1.3) Estimated GFR (Cockcroft-Gault) 36.8 BUN/Creatinine Ratio 34 (6-20) Glucose Level 154 mg/dL (70-99) Calcium Level 11.0 mg/dL (8.5-10.1) Ionized Calcium 1.56 mmol/L (1.13-1.32) Total Bilirubin 0.5 mg/dL (0.2-1.0) Aspartate Amino Transf (AST/SGOT) 29 U/L (15-37) Alanine Aminotransferase (ALT/SGPT) 35 U/L (16-63) Alkaline Phosphatase 70 U/L (46-116) Total Protein 6.4 g/dL (6.4-8.2) Albumin 2.6 g/dL (3.4-5.0) Albumin/Globulin Ratio 0.7 (1.0-1.7) Thyroid Stimulating Hormone (TSH) 0.263 uIU/mL (0.358-3.74) Review of Systems Constitutional: yes: alert, oriented, other Ears/Nose/Throat: Yes: no symptom reported Eyes: Yes: no symptom reported Pulmonary: Yes cough dry Cardiovascular: Yes no symptom reported Gastrointestional: Yes: no symptom reported Genitourinary: Yes: no symptom reported Musculoskeletal: Yes: muscle stiffness Skin: Yes no symptom reported Psychiatric/Neurological: Yes: no symptom reported Endocrine: Yes: no symptom reported Physical Exam General Appearance: no apparent distress Skin: warm Respiratory: decreased breath sounds Heart: S1S2 Abdomen: soft Genitourinary: bladder flat Extremities: pulses present, atrophy Neurology: confused Musculoskeletal: Osteoarthritis Assessment Assessment IMP THIS IS A 78 YR OLD WITH SOB. CURRENTLY UNDERGOING PULMONARY EVALUATION. HAS A CR OF 1.5-1.8 AT BASELINE C/W CKD STAGE 3. CR 1.6 TO 1.8 NOW. HX OF PRIMARY HYPERPARATHYROIDISM AND CALCIUM HAS BEEN MILDLY AND CHRONICALLY ELEVATED. HAS SEEN MY PARTNER DR BRODERICK AND DR JOYCE FOR SURGICAL CONSULTATION. DID NOT GO THROUGH SURGERY HE HAS HAD DIFFICULTY WITH ANESTHESIA IN THE PAST DURING A CHOLY SOME YEARS AGO. HE ALSO HAS HAD RECURRENT LOW MAG LEVELS. NO HX GIVEN. HAS BEEN ON LASIX. NO NEPHROTOXINS NOTED. MAY NEED TO REVISIT PARATHYROIDECTOMY AGAIN CA NOW IMPROVED TO 11.0 AND PT NO LONGER CONFUSED ALSO EXACERBATION OF COPD-IMPROVING PLAN SURGERY SEEING PT TO CONSIDER PARATHYROIDECTOMY UNABLE TO DO NOW DUE TO INCREASED INR CAN BE DONE OP SUGGEST STOPPING CALCITRIOL WHICH HE HAS BEEN TAKING WILL START HIM ON SENSIPAR 30 QHS A TEMPORIZING MEASURE HE ALREADY HAS F/U SET UP WITH MY PARTNER DR BRODERICK IN THE NEXT COUPLE MONTHS D/W ATTENDING WILL FOLLOW MICHELLE WHYTE MD Mar 15, 2019 12:49
--- NOTE | 2019-03-15 12:51 | PDOC ---
PULMONARY PROGRESS NOTES Subjective no soa, mild cough FULLY AWAKE Vitals Vital Signs Date Time Temp Pulse Resp B/P (MAP) Pulse Ox O2 Delivery O2 Flow Rate FiO2 03/15/19 11:50 Nasal Cannula 2.0 03/15/19 11:49 81 144/77 03/15/19 11:45 97.5 16 95 97.5 ROS: No Nausea General: Alert, No acute distress HEENT: Other (bipap mask on) Lungs: Other (decrease bs) Cardiovascular: S1, S2 Abdomen: Soft, Other Neuro Exam: Alert Extremities: No Edema Skin: Warm Labs Laboratory Tests Test 03/14/19 06:11 03/14/19 20:52 03/15/19 03:20 Prothrombin Time 34.0 SEC (11.7-14.0) 37.5 SEC (11.7-14.0) Prothromb Time International Ratio 3.4 (0.8-1.1) 3.8 (0.8-1.1) Sodium Level 145 mmol/L (136-145) 146 mmol/L (136-145) Potassium Level 3.9 mmol/L (3.5-5.1) 4.2 mmol/L (3.5-5.1) Chloride Level 107 mmol/L (98-107) 107 mmol/L (98-107) Carbon Dioxide Level 32 mmol/L (21-32) 34 mmol/L (21-32) Anion Gap 6 (6-14) 5 (6-14) Blood Urea Nitrogen 55 mg/dL (8-26) 62 mg/dL (8-26) Creatinine 1.8 mg/dL (0.7-1.3) 1.8 mg/dL (0.7-1.3) Estimated GFR (Cockcroft-Gault) 36.8 36.8 Glucose Level 157 mg/dL (70-99) 154 mg/dL (70-99) Calcium Level 11.0 mg/dL (8.5-10.1) 11.0 mg/dL (8.5-10.1) Phosphorus Level 3.7 mg/dL (2.6-4.7) Albumin 2.6 g/dL (3.4-5.0) 2.6 g/dL (3.4-5.0) Glucose (Fingerstick) 143 mg/dL (70-99) White Blood Count 10.8 x10^3/uL (4.0-11.0) Red Blood Count 2.91 x10^6/uL (4.30-5.70) Hemoglobin 9.0 g/dL (13.0-17.5) Hematocrit 27.6 % (39.0-53.0) Mean Corpuscular Volume 95 fL (79-100) Mean Corpuscular Hemoglobin 31 pg (25-35) Mean Corpuscular Hemoglobin Concent 33 g/dL (31-37) Red Cell Distribution Width 14.8 % (11.5-14.5) Platelet Count 189 x10^3/uL (140-400) Neutrophils (%) (Auto) 96 % (31-73) Lymphocytes (%) (Auto) 2 % (24-48) Monocytes (%) (Auto) 1 % (0-9) Eosinophils (%) (Auto) 0 % (0-3) Basophils (%) (Auto) 0 % (0-3) Neutrophils # (Auto) 10.4 x10^3/uL (1.8-7.7) Lymphocytes # (Auto) 0.2 x10^3/uL (1.0-4.8) Monocytes # (Auto) 0.1 x10^3/uL (0.0-1.1) Eosinophils # (Auto) 0.0 x10^3/uL (0.0-0.7) Basophils # (Auto) 0.0 x10^3/uL (0.0-0.2) BUN/Creatinine Ratio 34 (6-20) Ionized Calcium 1.56 mmol/L (1.13-1.32) Total Bilirubin 0.5 mg/dL (0.2-1.0) Aspartate Amino Transf (AST/SGOT) 29 U/L (15-37) Alanine Aminotransferase (ALT/SGPT) 35 U/L (16-63) Alkaline Phosphatase 70 U/L (46-116) Total Protein 6.4 g/dL (6.4-8.2) Albumin/Globulin Ratio 0.7 (1.0-1.7) Thyroid Stimulating Hormone (TSH) 0.263 uIU/mL (0.358-3.74) Laboratory Tests Test 03/14/19 20:52 03/15/19 03:20 Glucose (Fingerstick) 143 mg/dL (70-99) White Blood Count 10.8 x10^3/uL (4.0-11.0) Red Blood Count 2.91 x10^6/uL (4.30-5.70) Hemoglobin 9.0 g/dL (13.0-17.5) Hematocrit 27.6 % (39.0-53.0) Mean Corpuscular Volume 95 fL (79-100) Mean Corpuscular Hemoglobin 31 pg (25-35) Mean Corpuscular Hemoglobin Concent 33 g/dL (31-37) Red Cell Distribution Width 14.8 % (11.5-14.5) Platelet Count 189 x10^3/uL (140-400) Neutrophils (%) (Auto) 96 % (31-73) Lymphocytes (%) (Auto) 2 % (24-48) Monocytes (%) (Auto) 1 % (0-9) Eosinophils (%) (Auto) 0 % (0-3) Basophils (%) (Auto) 0 % (0-3) Neutrophils # (Auto) 10.4 x10^3/uL (1.8-7.7) Lymphocytes # (Auto) 0.2 x10^3/uL (1.0-4.8) Monocytes # (Auto) 0.1 x10^3/uL (0.0-1.1) Eosinophils # (Auto) 0.0 x10^3/uL (0.0-0.7) Basophils # (Auto) 0.0 x10^3/uL (0.0-0.2) Prothrombin Time 37.5 SEC (11.7-14.0) Prothromb Time International Ratio 3.8 (0.8-1.1) Sodium Level 146 mmol/L (136-145) Potassium Level 4.2 mmol/L (3.5-5.1) Chloride Level 107 mmol/L (98-107) Carbon Dioxide Level 34 mmol/L (21-32) Anion Gap 5 (6-14) Blood Urea Nitrogen 62 mg/dL (8-26) Creatinine 1.8 mg/dL (0.7-1.3) Estimated GFR (Cockcroft-Gault) 36.8 BUN/Creatinine Ratio 34 (6-20) Glucose Level 154 mg/dL (70-99) Calcium Level 11.0 mg/dL (8.5-10.1) Ionized Calcium 1.56 mmol/L (1.13-1.32) Total Bilirubin 0.5 mg/dL (0.2-1.0) Aspartate Amino Transf (AST/SGOT) 29 U/L (15-37) Alanine Aminotransferase (ALT/SGPT) 35 U/L (16-63) Alkaline Phosphatase 70 U/L (46-116) Total Protein 6.4 g/dL (6.4-8.2) Albumin 2.6 g/dL (3.4-5.0) Albumin/Globulin Ratio 0.7 (1.0-1.7) Thyroid Stimulating Hormone (TSH) 0.263 uIU/mL (0.358-3.74) Medications Active Scripts Medications Dose Route/Sig Max Daily Dose Days Date Category Daliresp (Roflumilast) 500 Mcg Tablet 500 Mcg PO DAILY 03/08/19 Rx Guaifenesin Dm Syrup (Guaifenesin/Dextromethorphan) 5 Ml Syrup 10 Ml PO PRN Q6HRS PRN 30 03/08/19 Rx Furosemide 40 Mg Tablet 40 Mg PO DAILY 03/08/19 Rx Amox Tr-K Clv 875-125 Mg Tab (Amoxicillin/Potassium Clav) 1 Each Tablet 1 Tab PO BID 03/08/19 Rx Xanax (Alprazolam) 0.5 Mg Tablet 0.5 Mg PO PRN Q6HRS PRN 03/08/19 Rx Trazodone Hcl 50 Mg Tablet 50 Mg PO HS 03/01/19 Reported Ranitidine Hcl 150 Mg Capsule 150 Mg PO DAILY 03/01/19 Reported Magnesium (Magnesium Oxide) 400 Mg Capsule 400 Mg PO DAILY 03/01/19 Reported Miralax (Polyethylene Glycol 3350) 119 Gm Powder 17 Gm PO PRN DAILY PRN 12/06/18 Reported Metoprolol Succinate ( Xl ) (Metoprolol Succinate) 25 Mg Tab.er.24h 12.5 Mg PO DAILY 12/06/18 Reported Duoneb 0.5-3(2.5) Mg/3 Ml (Albuterol/Ipratropium) 3 Ml Ampul.neb 3 Ml NEB QID 03/16/18 Reported Ascorbic Acid 500 Mg Tablet 500 Mg PO BID 03/15/18 Reported Super B Complex-Vitamin C (B Complex With Vitamin C) 1 Each Tablet 1 Each PO 12/04/17 Reported Calcitriol 0.25 Mcg Capsule 0.25 Mcg PO MO,TH 05/24/16 Reported Warfarin Sodium 5 Mg Tablet 7.5 Mg PO DAILY 05/24/16 Reported Loratadine 10 Mg Tablet 10 Mg PO QHS 10/16/14 Reported Tamsulosin Hcl 0.4 Mg Cap.er.24h 0.4 Mg PO QHS 10/16/14 Reported Atorvastatin Calcium 10 Mg Tablet 10 Mg PO HS 10/16/14 Reported Flonase (Fluticasone Propionate) 16 Gm Med[place].susp 2 [place] NS BID 01/06/[address] of chest 1. Cardiomegaly with very small right pleural effusion. 2. Mild emphysematous changes. 3. Small focal areas of infiltrate/atelectasis is seen throughout the right lung. Dependent subsegmental atelectasis is seen involving both lower lobes, right greater than left. Impression . IMPRESSION: 1. Acute on chronic respiratory failure secondary to acute systolic congestive heart failure, acute exacerbation of chronic obstructive pulmonary disease, acute bronchitis 2. Abnormal chest x-ray/ ct chest 3. Acute systolic congestive heart failure. 4. Acute exacerbation of chronic obstructive pulmonary disease. 5. Acute bronchitis. 6. Hypercalcemia, primary hyperparathyroidism, his confusion could be 2/2 to hypercalcemia VS ATIVAN 7. Atrial fibrillation, rate controlled, on Coumadin. 8. Obstructive sleep apnea-hypopnea syndrome. 9. Chronic kidney disease. Plan . 1. Titrate FiO2 to keep O2 saturation 90%. abg reviewed, 2. Use BiPAP p.r.n. during day and continuously at night. Setting was reviewed. 3. Further tx of hypercalcemia per primary doctor. off calcitetrol 4. ct reviewed, 5. Continue bronchodilator. 6. DECREASE solumedrol to 40 q 8hrs 7. Continue antibiotic. 8. Continue anticoagulation. Monitor INR. 9. confusion likely due to hypercalcemia/ DC ativan OK WITH DC discussed w pt, rt ALIYAH CALLE MD Mar 15, 2019 12:51
--- NOTE | 2019-03-15 13:35 | NUR ---
Pharmacy Warfarin Dosing Note S:Pharmacy consulted to assist with anticoagulation therapy started with target INR: 2 -3 O:JOSEP SIMS is a 78 year old M with Atrial Fibrillation LABS: Last INR: 3.8 Last HGB: 9 Last HCT: 27.6 Last PLT: 189 Last dose of 7.5 mg given on 03/14/19 at 1622 Previous Regimen: Vitamin K given: Drug Interaction Changes: Ongoing Drug Interactions: A:INR of 3.8 is above desired range. Target range for this patient is: 2 -3 P: Warfarin dose: Hold Today at 1600 Bridge Therapy: None Next INR due IN AM Pharmacy anticoagulation service will continue to follow. ABDI HOLLY, [facility], 03/15/19 [id number]
--- NOTE | 2019-03-15 14:54 | RAD ---
NUCLEAR MEDICINE PARATHYROID SCAN History: Hypercalcemia. Comparison: CT head and cervical spine without contrast, March 12, 2019. Technique: 21 mCi of technetium 99 M sestamibi was administered intravenously. At 15 minutes and 3 hours post injection, anterior, DARCY, and SOLORZANO zoom images of the neck were obtained. Findings: On the early images there is relatively homogeneous tracer uptake in the thyroid gland. On the delay images there is incomplete washout from the thyroid gland, decreasing sensitivity. No focal retention of tracer is identified. There is greater than expected extrathyroidal tracer in the neck also decreasing sensitivity. IMPRESSION: No evidence of sestamibi avid parathyroid adenoma. Electronically signed by: Mateo Scanlon MD (03/15/2019 2:52 PM) [id number]
--- NOTE | 2019-03-15 15:09 | SNU/HH DC ---
DISCHARGE WITH HOME HEALTH DISCHARGE INFORMATION: Discharge Date: Mar 15, 2019 Final Diagnosis: Problems Medical Problems: (1) Acute kidney injury superimposed on CKD Status: Acute (2) Acute metabolic encephalopathy Status: Acute (3) Acute on chronic diastolic heart failure Status: Acute (4) COPD (chronic obstructive pulmonary disease) Status: Chronic (5) Dehydration Status: Acute (6) Delirium Status: Acute (7) Hypercalcemia Status: Acute (8) Hyperparathyroidism Status: Chronic (9) Hypomagnesemia Status: Acute (10) Respiratory failure with hypoxia Status: Acute Condition on Discharge: Stable CODE STATUS: Code Status: Full HOME HEALTH: Face to Face: I certify this patient is under my care and that I, had a face to face encounter that meets the physician face to face encounter requirements with this patient on 03/15. Medical Complications: Falls Shelter For: Medication Management RN For Eval/Treatment: Yes Physical Therapy For: Evalulation/Treatment Occupational Therapy For: Evaluation/Treatment Pt Meets Homebound Status: Extreme weakness w/ amb., Limited distance walking POST DISCHARGE ORDERS: Activity Instructions for Disc: Activity as tolerated Weight Bearing Status after Di: As tolerated Bathing Instructions: Shower-keep dressing dry, No Tub Bath until see DIET AFTER DISCHARGE: Cardiac Wound/Incision Care: Reinforce dressing PRN CHECKS AFTER DISCHARGE: Checks after discharge: Check blood press - daily, Check your Temp as needed, Weigh Yourself Daily FOLLOW-UP: Follow up with: Dr. Hernandez 1 mo TREATMENT/EQUIPMENT ORDERS: Adaptive Equipment Issued: None Discharge Respiratory Equipmen: Oxygen CERTIFICATION STATEMENT: Certification Statement: Certification Statement: Based on the above finding, I certify that this patient is confined to the home and needs intermittent custodial care, physical therapy and/or speech therapy, or continues to need occupational therapy.~ This patient is under my care, and I have initiated the establishment of the plan of care.~ This patient will be followed by myself or a community physician who will periodically review the plan of care. Home Meds Active Scripts Amoxicillin/Potassium Clav (AUGMENTIN 875-125 TABLET) 1 Each Tablet, 1 TAB PO BID for acute bronchitis, #12 TAB Prov:JEMAL HOLT MD 03/15/19 Prednisone (PREDNISONE ) 10 Mg Tablet, 10 MG PO UD for COPD bronchitis, #28 TAB 0 Refills Take 4 tablets by mouth daily for 4 days, then take 3 tablets by mouth daily for 2 days, then take 2 tablets by mouth daily for 2 days, then take 1 tablets by mouth daily for 2 days, then stop. Prov:JEMAL HOLT MD 03/15/19 Cinacalcet Hcl (SENSIPAR) 30 Mg Tablet, 1 TAB PO HS for hyperkalcemia, #30 TAB 11 Refills Prov:JEMAL HOLT MD 03/15/19 Roflumilast (DALIRESP) 500 Mcg Tablet, 500 MCG PO DAILY for phosphodiesterase inhib, #30 TAB Prov:RICO MICHEL MD 03/08/19 Guaifenesin/Dextromethorphan (GUAIFENESIN DM SYRUP) 5 Ml Syrup, 10 ML PO PRN Q6HRS PRN for COUGH for 30 Days, MISC Prov:RICO MICHEL MD 03/08/19 Furosemide (FUROSEMIDE) 40 Mg Tablet, 40 MG PO DAILY for chf, #60 TAB Prov:RICO MICHEL MD 03/08/19 Alprazolam (XANAX) 0.5 Mg Tablet, 0.5 MG PO PRN Q6HRS PRN for ANXIETY / AGITATION, #30 TAB 0 Refills Prov:RICO MICHEL MD 03/08/19 Reported Medications Trazodone Hcl (TRAZODONE HCL) 50 Mg Tablet, 50 MG PO HS for insomnia, TAB 03/01/19 Ranitidine Hcl (RANITIDINE HCL) 150 Mg Capsule, 150 MG PO DAILY for GERD, TAB 03/01/19 Magnesium Oxide (MAGNESIUM) 400 Mg Capsule, 400 MG PO DAILY for supplement, CAP 03/01/19 Polyethylene Glycol 3350 (MIRALAX) 119 Gm Powder, 17 GM PO PRN DAILY PRN for CONSTIPATION, #527 GM 12/06/18 Metoprolol Succinate (METOPROLOL SUCCINATE ( XL )) 25 Mg Tab.er.24h, 12.5 MG PO DAILY for FOR HYPERTENSION, #30 TAB 0 Refills 12/06/18 Ipratropium/Albuterol Sulfate (DUONEB 0.5-3(2.5) MG/3 ML) 3 Ml Ampul.neb, 3 ML NEB QID for SOA, EACH 03/16/18 Ascorbic Acid (ASCORBIC ACID) 500 Mg Tablet, 500 MG PO BID, TAB 03/15/18 B Complex With Vitamin C (SUPER B COMPLEX-VITAMIN C) 1 Each Tablet, 1 EACH PO, TAB 12/04/17 Warfarin Sodium (WARFARIN SODIUM) 5 Mg Tablet, 7.5 MG PO DAILY for afib, TAB 05/24/16 Loratadine (LORATADINE) 10 Mg Tablet, 10 MG PO QHS 10/16/14 Tamsulosin Hcl (TAMSULOSIN HCL) 0.4 Mg Cap.er.24h, 0.4 MG PO QHS, TAB 10/16/14 Atorvastatin Calcium (ATORVASTATIN CALCIUM) 10 Mg Tablet, 10 MG PO HS for FOR CHOLESTEROL, #30 TAB 0 Refills 10/16/14 Fluticasone Propionate (FLONASE) 16 Gm [place].susp, 2 SPRAY NS BID, SPRAY 01/06/14 Discontinued Reported Medications Calcitriol (CALCITRIOL) 0.25 Mcg Capsule, 0.25 MCG PO mo,th for supplement 05/24/16 Furosemide (FUROSEMIDE) 20 Mg Tablet, 20 MG PO DAILY for , TAB 12/06/18 Discontinued Scripts Amoxicillin/Potassium Clav (AMOX TR-K CLV 875-125 MG TAB) 1 Each Tablet, 1 TAB PO BID for brocnhitis, #14 TAB Prov:RICO MICHEL MD 03/08/19 JEMAL HOLT MD Mar 15, 2019 15:09
--- NOTE | 2019-03-15 15:12 | PDOC3 ---
Discharge Summary Visit Information Date of Admission: Mar 12, 2019 Date of Discharge: Mar 15, 2019 Final Diagnosis 1. Altered mental status, acute delirium on cognitive decline - 2. vCHF exacerbation diastolic 3. HYpoxic respi failure , HYPERCAPNIC on BIPAP and VM Hazy infiltrates or edema with mild worsening from the recent exam. Cor pulmonale with moderate pulmonary hypertension with a mPA pressure of 35 mmHg, 4,.JAYDON on CKD stage 3- 4 5. MPI< EF 47%, FIXED inferior wall defect. Mild LV dysfunction. EF 47% 6. 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 Hypomagnesemia 8. hypoxia 9. acute metabolic encephalopathy 10. HYPERCALCEMIA Problems Medical Problems: (1) Acute kidney injury superimposed on CKD Status: Acute (2) Acute metabolic encephalopathy Status: Acute (3) Acute on chronic diastolic heart failure Status: Acute (4) COPD (chronic obstructive pulmonary disease) Status: Chronic (5) Dehydration Status: Acute (6) Delirium Status: Acute (7) Hypercalcemia Status: Acute (8) Hyperparathyroidism Status: Chronic (9) Hypomagnesemia Status: Acute (10) Respiratory failure with hypoxia Status: Acute Brief Hospital Course Allergies Allergies Coded Allergies Type Severity Reaction Last Updated Verified No Known Drug Allergies 02/05/18 No Vital Signs Vital Signs Date Time Temp Pulse Resp B/P (MAP) Pulse Ox O2 Delivery O2 Flow Rate FiO2 03/15/19 11:50 Nasal Cannula 2.0 03/15/19 11:49 81 144/77 03/15/19 11:45 97.5 16 95 97.5 Lab Results Laboratory Tests Test 03/14/19 06:11 03/14/19 20:52 03/15/19 03:20 Prothrombin Time 34.0 SEC (11.7-14.0) 37.5 SEC (11.7-14.0) Prothromb Time International Ratio 3.4 (0.8-1.1) 3.8 (0.8-1.1) Sodium Level 145 mmol/L (136-145) 146 mmol/L (136-145) Potassium Level 3.9 mmol/L (3.5-5.1) 4.2 mmol/L (3.5-5.1) Chloride Level 107 mmol/L (98-107) 107 mmol/L (98-107) Carbon Dioxide Level 32 mmol/L (21-32) 34 mmol/L (21-32) Anion Gap 6 (6-14) 5 (6-14) Blood Urea Nitrogen 55 mg/dL (8-26) 62 mg/dL (8-26) Creatinine 1.8 mg/dL (0.7-1.3) 1.8 mg/dL (0.7-1.3) Estimated GFR (Cockcroft-Gault) 36.8 36.8 Glucose Level 157 mg/dL (70-99) 154 mg/dL (70-99) Calcium Level 11.0 mg/dL (8.5-10.1) 11.0 mg/dL (8.5-10.1) Phosphorus Level 3.7 mg/dL (2.6-4.7) Albumin 2.6 g/dL (3.4-5.0) 2.6 g/dL (3.4-5.0) Glucose (Fingerstick) 143 mg/dL (70-99) White Blood Count 10.8 x10^3/uL (4.0-11.0) Red Blood Count 2.91 x10^6/uL (4.30-5.70) Hemoglobin 9.0 g/dL (13.0-17.5) Hematocrit 27.6 % (39.0-53.0) Mean Corpuscular Volume 95 fL (79-100) Mean Corpuscular Hemoglobin 31 pg (25-35) Mean Corpuscular Hemoglobin Concent 33 g/dL (31-37) Red Cell Distribution Width 14.8 % (11.5-14.5) Platelet Count 189 x10^3/uL (140-400) Neutrophils (%) (Auto) 96 % (31-73) Lymphocytes (%) (Auto) 2 % (24-48) Monocytes (%) (Auto) 1 % (0-9) Eosinophils (%) (Auto) 0 % (0-3) Basophils (%) (Auto) 0 % (0-3) Neutrophils # (Auto) 10.4 x10^3/uL (1.8-7.7) Lymphocytes # (Auto) 0.2 x10^3/uL (1.0-4.8) Monocytes # (Auto) 0.1 x10^3/uL (0.0-1.1) Eosinophils # (Auto) 0.0 x10^3/uL (0.0-0.7) Basophils # (Auto) 0.0 x10^3/uL (0.0-0.2) BUN/Creatinine Ratio 34 (6-20) Ionized Calcium 1.56 mmol/L (1.13-1.32) Total Bilirubin 0.5 mg/dL (0.2-1.0) Aspartate Amino Transf (AST/SGOT) 29 U/L (15-37) Alanine Aminotransferase (ALT/SGPT) 35 U/L (16-63) Alkaline Phosphatase 70 U/L (46-116) Total Protein 6.4 g/dL (6.4-8.2) Albumin/Globulin Ratio 0.7 (1.0-1.7) Thyroid Stimulating Hormone (TSH) 0.263 uIU/mL (0.358-3.74) Laboratory Tests Test 03/14/19 20:52 03/15/19 03:20 Glucose (Fingerstick) 143 mg/dL (70-99) White Blood Count 10.8 x10^3/uL (4.0-11.0) Red Blood Count 2.91 x10^6/uL (4.30-5.70) Hemoglobin 9.0 g/dL (13.0-17.5) Hematocrit 27.6 % (39.0-53.0) Mean Corpuscular Volume 95 fL (79-100) Mean Corpuscular Hemoglobin 31 pg (25-35) Mean Corpuscular Hemoglobin Concent 33 g/dL (31-37) Red Cell Distribution Width 14.8 % (11.5-14.5) Platelet Count 189 x10^3/uL (140-400) Neutrophils (%) (Auto) 96 % (31-73) Lymphocytes (%) (Auto) 2 % (24-48) Monocytes (%) (Auto) 1 % (0-9) Eosinophils (%) (Auto) 0 % (0-3) Basophils (%) (Auto) 0 % (0-3) Neutrophils # (Auto) 10.4 x10^3/uL (1.8-7.7) Lymphocytes # (Auto) 0.2 x10^3/uL (1.0-4.8) Monocytes # (Auto) 0.1 x10^3/uL (0.0-1.1) Eosinophils # (Auto) 0.0 x10^3/uL (0.0-0.7) Basophils # (Auto) 0.0 x10^3/uL (0.0-0.2) Prothrombin Time 37.5 SEC (11.7-14.0) Prothromb Time International Ratio 3.8 (0.8-1.1) Sodium Level 146 mmol/L (136-145) Potassium Level 4.2 mmol/L (3.5-5.1) Chloride Level 107 mmol/L (98-107) Carbon Dioxide Level 34 mmol/L (21-32) Anion Gap 5 (6-14) Blood Urea Nitrogen 62 mg/dL (8-26) Creatinine 1.8 mg/dL (0.7-1.3) Estimated GFR (Cockcroft-Gault) 36.8 BUN/Creatinine Ratio 34 (6-20) Glucose Level 154 mg/dL (70-99) Calcium Level 11.0 mg/dL (8.5-10.1) Ionized Calcium 1.56 mmol/L (1.13-1.32) Total Bilirubin 0.5 mg/dL (0.2-1.0) Aspartate Amino Transf (AST/SGOT) 29 U/L (15-37) Alanine Aminotransferase (ALT/SGPT) 35 U/L (16-63) Alkaline Phosphatase 70 U/L (46-116) Total Protein 6.4 g/dL (6.4-8.2) Albumin 2.6 g/dL (3.4-5.0) Albumin/Globulin Ratio 0.7 (1.0-1.7) Thyroid Stimulating Hormone (TSH) 0.263 uIU/mL (0.358-3.74) Brief Hospital Course Mr. Quintero is a 78 old admit with CHF, with hypxoai, hazy infiltrates, treated for PNA better, but delirious, calcium 11, ionized 1.56, meds changed, stopped calcitriol for sensipar f/u Dr. Hernandez cont PO lasix, has home -02 Discharge Information Condition at Discharge: Improved Follow Up: Weeks Disposition/Orders: D/C to Home w/ HH Scheduled Amoxicillin/Potassium Clav (Augmentin 875-125 Tablet) 1 Each Tablet, 1 TAB PO BID for acute bronchitis, #12 Prescribed by: JEMAL HOLT on 03/15/19 1059 Ascorbic Acid (Ascorbic Acid) 500 Mg Tablet, 500 MG PO BID, (Reported) Entered as Reported by: Juan Mckeon on 03/15/18 1702 Last Action: Continued on 03/12/191000 by DEVON BYRD MD Atorvastatin Calcium (Atorvastatin Calcium) 10 Mg Tablet, 10 MG PO HS for FOR CHOLESTEROL, #30 Ref 0 (Reported) Entered as Reported by: Lynnette Angeles on 10/16/14 113 Last Action: Continued on 03/12/191000 by DEVON BYRD MD Cinacalcet Hcl (Sensipar) 30 Mg Tablet, 1 TAB PO HS for hyperkalcemia, #30 Ref 11 Prescribed by: JEMAL HOLT on 03/15/19 1054 Fluticasone Propionate (Flonase) 16 Gm [place].susp, 2 SPRAY NS BID, (Reported) Entered as Reported by: CHAVA SMALL on 01/06/14 2253 Last Action: Continued on 03/12/191000 by DEVON BYRD MD Furosemide (Furosemide) 40 Mg Tablet, 40 MG PO DAILY for chf, #60 Prescribed by: RICO MICHEL on 03/08/19 0837 Last Action: Continued on 03/12/191000 by DEVON BYRD MD Ipratropium/Albuterol Sulfate (Duoneb 0.5-3(2.5) Mg/3 Ml) 3 Ml Ampul.neb, 3 ML NEB QID for SOA, (Reported) Entered as Reported by: Juan Mckeon on 03/16/18 0800 Last Action: Continued on 03/12/191000 by DEVON BYRD MD Loratadine (Loratadine) 10 Mg Tablet, 10 MG PO QHS, (Reported) Entered as Reported by: Lynnette Angeles on 10/16/14 113 Last Action: Converted on 03/12/191000 by DEVON BYRD MD Magnesium Oxide (Magnesium) 400 Mg Capsule, 400 MG PO DAILY for supplement, (Reported) Entered as Reported by: BHARGAVI MONTOYA on 03/01/19 1741 Last Action: Reviewed on 03/12/19 09 by NOLBERTO JACKSON Metoprolol Succinate (Metoprolol Succinate ( Xl )) 25 Mg Tab.er.24h, 12.5 MG PO DAILY for FOR HYPERTENSION, #30 Ref 0 (Reported) Entered as Reported by: Lynnette Angeles on 12/06/181132 Last Action: Continued on 03/12/191000 by DEVON BYRD MD Prednisone (Prednisone ) 10 Mg Tablet, 10 MG PO UD for COPD bronchitis, #28 Ref 0 Take 4 tablets by mouth daily for 4 days, then take 3 tablets by mouth daily for 2 days, then take 2 tablets by mouth daily for 2 days, then take 1 tablets by mouth daily for 2 days, then stop. Prescribed by: JEMAL HOLT on 03/15/19 1059 Ranitidine Hcl (Ranitidine Hcl) 150 Mg Capsule, 150 MG PO DAILY for GERD, (Reported) Entered as Reported by: BHARGAVI MONTOYA on 03/01/191740 Last Action: Reviewed on 03/12/19957 by NOLBERTO JACKSON Roflumilast (Daliresp) 500 Mcg Tablet, 500 MCG PO DAILY for phosphodiesterase inhib, #30 Prescribed by: RICO MICHEL on 03/08/19 0837 Last Action: Continued on 03/12/191000 by DEVON BYRD MD Tamsulosin Hcl (Tamsulosin Hcl) 0.4 Mg Cap.er.24h, 0.4 MG PO QHS, (Reported) Entered as Reported by: Lynnette Angeles on 10/16/141132 Last Action: Continued on 03/12/191000 by DEVON BYRD MD Trazodone Hcl (Trazodone Hcl) 50 Mg Tablet, 50 MG PO HS for insomnia, (Reported) Entered as Reported by: BHARGAVI MONTOYA on 03/01/191740 Last Action: HELD on 03/12/191000 by DEVON BYRD MD Warfarin Sodium (Warfarin Sodium) 5 Mg Tablet, 7.5 MG PO DAILY for afib, (Reported) Entered as Reported by: YOVANI MOLINA on 05/24/16 2310 Last Action: Continued on 03/12/191000 by DEVON BYRD MD Scheduled PRN Alprazolam (Xanax) 0.5 Mg Tablet, 0.5 MG PO PRN Q6HRS PRN for ANXIETY / AGITATION, #30 Ref 0 Prescribed by: RICO MICHEL on 03/08/19836 Last Action: HELD on 03/12/191000 by DEVON BYRD MD Guaifenesin/Dextromethorphan (Guaifenesin Dm Syrup) 5 Ml Syrup, 10 ML PO PRN Q6HRS PRN for COUGH for 30 Days Prescribed by: RICO MICHEL on 03/08/19836 Last Action: Continued on 03/12/191000 by DEVON BYRD MD Polyethylene Glycol 3350 (Miralax) 119 Gm Powder, 17 GM PO PRN DAILY PRN for CONSTIPATION, #527 (Reported) Entered as Reported by: Lynnette Angeles on 12/06/181138 Last Action: Continued on 03/12/191000 by DEVON BYRD MD Miscellaneous Medications B Complex With Vitamin C (Super B Complex-Vitamin C) 1 Each Tablet, 1 EACH PO, (Reported) Entered as Reported by: SHERRY WOODSON on 12/04/171946 Last Action: Reviewed on 03/12/19957 by NOLBERTO JACKSON Discontinued Medications Amoxicillin/Potassium Clav (Amox Tr-K Clv 875-125 Mg Tab) 1 Each Tablet, 1 TAB PO BID for brocnhitis, #14 Prescribed by: RICO MICHEL on 03/08/19836 Last Action: HELD on 03/12/191000 by DEVON BYRD MD Calcitriol (Calcitriol) 0.25 Mcg Capsule, 0.25 MCG PO , for supplement, (Reported) Entered as Reported by: YOVANI MOLINA on 05/24/160 Last Action: Continued on 03/12/191000 by DEVON BYRD MD Furosemide (Furosemide) 20 Mg Tablet, 20 MG PO DAILY for , (Reported) Entered as Reported by: Lynnette Angeles on 12/06/181138 Patient Instructions Patient Instructions 41 min face to face discussed and again with renal and then with care coordination, 3 visits JEMAL HOLT MD Mar 15, 2019 15:12
[2019-03-15 15:45] VITALS: BP 153/71
--- NOTE | 2019-03-15 16:30 | NUR ---
SW following pt. Pt and would like to go home with [facility]. Orders phoned/faxed and SW notified [facility] re- trilogy machine. Gene from [facility] will come to take it to pt's home and help set it up. D/W RN. No other needs at this time.
--- NOTE | 2019-03-15 16:51 | NUR ---
Pt being escoorted out by wheelchair with [place] to main entrance in private vehicle and belongings in tow, on 2 LNC.
[2019-03-15 20:08] LABS: CALCIUM PTH 11.1 mg/dL (8.6-10.2); PHOSPHORUS PTH 3.4 mg/dL (2.5-4.5); PTH INTACT 168 pg/mL (15-65)
== END 2019-03-15 16:50 | disposition home health service (06) | DRG 871 ==
LOC: ER 05:29 → 6 SOUTH 08:40
PROVIDERS: ADMIT Family Medicine; ATTEND Family Medicine
PROC: 5A09357 Assistance with Respiratory Ventilation, Less than 24 Consecutive Hours, Continuous Positive Airway Pressure (ICD-10-PCS; principal; 2019-03-12)
PROC: 5A09357 Assistance with Respiratory Ventilation, Less than 24 Consecutive Hours, Continuous Positive Airway Pressure (ICD-10-PCS; 2019-03-13)
PROC: 5A09357 Assistance with Respiratory Ventilation, Less than 24 Consecutive Hours, Continuous Positive Airway Pressure (ICD-10-PCS; 2019-03-13)
DX: A41.9 Sepsis, unspecified organism (principal); G93.41 Metabolic encephalopathy; J96.21 Acute and chronic respiratory failure with hypoxia; I50.43 Acute on chronic combined systolic (congestive) and diastolic (congestive) heart failure; N17.9 Acute kidney failure, unspecified; I13.0 Hypertensive heart and chronic kidney disease with heart failure and stage 1 through stage 4 chronic kidney disease, or unspecified chronic kidney disease; F05 Delirium due to known physiological condition; J44.1 Chronic obstructive pulmonary disease with (acute) exacerbation; J44.0 Chronic obstructive pulmonary disease with (acute) lower respiratory infection; J20.9 Acute bronchitis, unspecified; D64.9 Anemia, unspecified; E05.90 Thyrotoxicosis, unspecified without thyrotoxic crisis or storm; E78.00 Pure hypercholesterolemia, unspecified; E78.5 Hyperlipidemia, unspecified; E83.42 Hypomagnesemia; E86.0 Dehydration; F32.9 Major depressive disorder, single episode, unspecified; F41.9 Anxiety disorder, unspecified; G47.33 Obstructive sleep apnea (adult) (pediatric); I27.29 Other secondary pulmonary hypertension; I25.10 Atherosclerotic heart disease of native coronary artery without angina pectoris; I48.91 Unspecified atrial fibrillation; I27.81 Cor pulmonale (chronic); K59.00 Constipation, unspecified; N18.3 Chronic kidney disease, stage 3 (moderate); Z79.01 Long term (current) use of anticoagulants; Z87.891 Personal history of nicotine dependence; Z90.49 Acquired absence of other specified parts of digestive tract; Z99.81 Dependence on supplemental oxygen; Z87.01 Personal history of pneumonia (recurrent); Z87.440 Personal history of urinary (tract) infections
CPT/HCPCS: 36415; 36600; 70450; 71045; 71250; 72125; 78070; 80053; 80069; 80307; 81001; 82140; 82310; 82805; 82962; 83605; 83735; 83970; 84443; 85007; 85025; 85610; 85730; 94618; 94640; 94660; 94760; A9500; J1940; J2543; J2930; J7030; J7613; J7620; 92526; 92610; 97116; 97530; 99285-25; G0378

== ENCOUNTER → 2019-08-16 | Outpatient (CLI) | payer MEDICARE, OTHER ==
[~2019-08-16] MED LIST changes: +CINA30TA2 PO; -POTA10TA12 PO; +POTA20TA4 PO; -POTA20TA82 PO; +POTASSIUM CHLO10 ME1 PO; -RANI-348 PO; +RANI-369 PO
--- NOTE | 2019-08-16 11:39 | KCIC ---
Bilateral diagnostic digital mammograms: Reason for examination: Left breast pain to touch for one month. Lump felt by the doctor. Interpretation is made with the benefit of CAD. The skin and nipples show no abnormalities. No abnormal lymph nodes are seen. The breast parenchyma is predominantly fatty. (Breast density: Category A.) There is moderate asymmetric gynecomastia in the left breast. There are no other dominant masses, suspicious calcifications or architectural distortions. Impression: Asymmetric gynecomastia in the left breast. Ultrasound to follow. BI-RADS Category 0: Incomplete. Needs additional imaging evaluation. Left breast ultrasound: Ultrasound examination of the left breast and axilla was performed with comparison views of the right retroareolar position. There is again moderate gynecomastia present with no abnormal vascularity. No other cystic or solid lesions are seen. No abnormal appearing lymph nodes are seen in the axilla. IMPRESSION: Asymmetric left gynecomastia. Recommend 6 month follow-up with ultrasound. BI-RADS Category 3: Probably Benign. "Our facility is accredited by the [employer] Mammography Program." This patient's information has been entered into a reminder system for the patient to be notified with the results of her examination and a target date for the next mammogram. Electronically signed by: Amina Ramos MD (08/16/2019 11:36 AM) [email or web address]
== END | disposition home or self-care (01) ==
LOC: KCIC MAMMO 10:54
PROVIDERS: ATTEND Dermatology
DX: N62 Hypertrophy of breast (principal)
CPT/HCPCS: 76641; 77066

== ENCOUNTER → 2020-02-14 | Outpatient (CLI) | payer MEDICARE, OTHER ==
--- NOTE | 2020-02-14 13:01 | KCIC ---
Left breast ultrasound: Reason for examination: Follow-up for gynecomastia. Comparison is made to previous mammogram and ultrasound examination dated 08/16/2019. Ultrasound examination of the left breast and axilla was performed. There continues to be focal gynecomastia in the subareolar regions of the left breast which shows no abnormal vascularity and has shown no interval change. No other masses are seen. No abnormal appearing lymph nodes are seen in the axilla. IMPRESSION: Left gynecomastia without interval change. Recommend clinical follow-up. BI-RADS Category 2: Benign. "Our facility is accredited by the [employer] Mammography Program." This patient's information has been entered into a reminder system for the patient to be notified with the results of her examination and a target date for the next mammogram. Electronically signed by: Amina Ramos MD (02/14/2020 12:57 PM) [email or web address]
== END | disposition home or self-care (01) ==
LOC: KCIC US 08:28
PROVIDERS: ATTEND Internal Medicine
DX: N62 Hypertrophy of breast (principal)
CPT/HCPCS: 76641

== ENCOUNTER → 2020-04-24 | Outpatient (CLI) | payer MEDICARE, OTHER ==
[~2020-04-24] MED LIST changes: -AMIO200T4 PO; +AMIO200T6 PO; +AMLO-186 PO; -AMLO5TAB10 PO
--- NOTE | 2020-04-24 14:11 | KCIC ---
Chest radiograph 04/24/2020 12:00 AM INDICATION: Increased shortness of breath, COPD and former smoker COMPARISON: CT chest 03/12/2019 TECHNIQUE: Frontal and lateral views of the chest are provided. FINDINGS: The cardiomediastinal silhouette is enlarged. There are no pleural effusions. There is no pulmonary vascular congestion. There is no pneumothorax. There is air trapping as may be seen with COPD. This results in flattening of the diaphragms. Pleural thickening noted at the lung bases. Coarse interstitial changes are identified at the lung bases. Pulmonary emphysematous changes are suspected. Left chest wall cardiac device is identified with leads projecting over the right atrium and right ventricle. No significant osseous abnormality is identified. IMPRESSION: 1. Cardiomegaly. 2. Pulmonary emphysema and COPD changes as described above. Coarse interstitial changes the lung bases could reflect fibrotic changes. Superimposed interstitial pneumonitis may have similar appearance. Noncontrast CT chest could be of benefit for further evaluation. Electronically signed by: Rachel Petit MD (04/24/2020 2:08 PM) [id number]
== END ==
LOC: KCIC 10:37
PROVIDERS: ATTEND Internal Medicine Critical Care Medicine
DX: J43.9 Emphysema, unspecified (principal); I51.7 Cardiomegaly; Z87.891 Personal history of nicotine dependence
CPT/HCPCS: 71046

== ENCOUNTER → 2021-04-29 | Outpatient (CLI) | payer MEDICARE, OTHER ==
[2021-03-22 11:00] VITALS: BP 131/71
[~2021-04-29] MED LIST changes: +ACET325T21 PO; +ASPI-886 PO; -CINA30TA2 PO; +CINA30TA24 PO; -CLIN150C14 PO; +CLIN150C16 PO; -DOXY100C2 PO; +DOXY100C3 PO; +DOXY100T PO; +GLYC10.7 IH; +HYDR-2765 PO; +LACT1CAP19 PO; -LISI-338 PO; +LISI-517 PO; -LISI2.5T PO; +LISI2.5T12 PO; +MAG30ORA2 PO; +MAGN500C10 PO; +OXYC1TAB19 PO; +PARO10TA57 PO; +REGADENOSON 0.4 MG/5 ML DISP.SYRIN. IV ONE; +TRAZ-123 PO; +WARF10TA40 PO
--- NOTE | 2021-04-29 16:47 | RAD ---
MR#: [id number] Date of Study: 04/29/2021 Ordering Physician: BALAJI GARCIA, Referring Physician: MANDI BOX Tech: RT Arnulfo (R) (N) APPROVED REPORT Test Type: Pharmacological Stress Nurse/Tech: Frances Sahu R.N. Test Indications: chest pain Cardiac History: chf, afib, htn, Medications: see ehr Medical History: CKD 3, liver dz Resting ECG: paced Resting Heart Rate: 84 bpm Resting Blood Pressure: 115/59mmHg Pretest Chest Pain: No chest pain Nurse/Tech Notes lungs diminished, on nc O2/2l Consent: The procedure was explained to the patient in lay terms. Informed consent was witnessed. Jamie eout was entered into [employer]. History and Stress Test performed by BRAEDEN Ramos Stress Symptoms No chest pain or symptoms. POST EXERCISE Reason for Termination: Infusion complete Target HR: No Max HR: 120 bpm Max Blood Pressure: 133/62mmHg Chest Pain: No. Arrhythmia: Yes. ST Change: No. INTERPRETATION Stress EKG Conclusion: No evidence of stress induced EKG but limited due to pacing artifact Baseline atrial fibrillation with demand v-pacing Imaging Protocol IMAGE PROTOCOL: Rest Tc-99m/stress Tc-99m 1 day Rest: Stress: Viability: Radiopharm.Tc99m CdiwyfevcDb19t Sestamibi Rnlj57mWr 33mCi Duration 15min. 15min. Img Date 04/29/2021 04/29/2021 Inj-Img Yobt73cct. 60min. Rest Admin Site:IV - Right WristAdministrator:RT Derek (R)(N) Stress Admin Site: IV - Right WristAdministrator: BRAEDEN Ramos STRESS DATA End Diast. Vol.235.0mlAv. Heart Rate88.0bpm End Syst. Vol.142.0mlCO Index BSA0.0L/min Myocardial Sgea808.0gEject. Nxnrpwed30.0% Stress Rates Pk. Fill Rate2.33EDV/secLVtime Pk. Fill 163.31msec Pk. Empty Rate2.05ESV/secLVtime Pk. Qqmvj138.87msec /3 Pk. Fill0.83EDV/sec Stress Scores Regional WT1.00Summed WT32.00 Regional WM0.00Summed WM8.00 LV Perfusion There is a moderate to large size basal to mid inferior and apical fixed perfusion defect consistent with prior infarct without active ischemia. Wall Motion Severe LV systolic dysfunction with ejection fraction of 40%, global hypokinesis LV Perf. Quant 17 Seg. SSS7.00 17 Seg. SRS8.00 17 Seg. SDS0.00 Stress Defect Extent (% LAD)11.90Rest Defect Extent (% LAD)21.30Rev. Defect Extent (% LAD)0.00 Stress Defect Extent (% LCX) 13.80Rest Defect Extent (% LCX)33.80Rev. Defect Extent (% LCX)0.00 Stress Defect Extent (% RCA)12.20Rest Defect Extent (% RCA)12.20Rev. Defect Extent (% RCA)0.00 Stress Defect Extent (% STEPHEN)15.20Rest Defect Extent (% STEPHEN)23.30Rev. Defect Extent (% STEPHEN)0.00 Other Information Quality:Fair Risk Assessment: Moderate-High Risk Conclusion 1. Nondiagnostic EKG due to pacing artifact. 2. Fixed inferior wall defect without active ischemia 3. Severe LV systolic dysfunction, EF 40% 4. Moderate to high risk for future cardiovascular events Signed by : Isac Muniz, Electronically Approved : 04/29/2021 16:46:44
== END ==
LOC: NM 09:30
PROVIDERS: ATTEND Internal Medicine Cardiovascular Disease
DX: I50.1 Left ventricular failure, unspecified (principal); I51.0 Cardiac septal defect, acquired; R07.9 Chest pain, unspecified
CPT/HCPCS: 78452; 93017; A9500; J2785

== ENCOUNTER → 2021-06-13 | Outpatient (CLI) | payer MEDICARE, OTHER ==
[2021-03-22 11:00] VITALS: BP 131/71
[~2021-06-13] MED LIST changes: +AMIO200T53 PO; -AMIO200T6 PO; -LISI-517 PO; +LISI5TAB15 PO; -REGADENOSON 0.4 MG/5 ML DISP.SYRIN. IV ONE
--- NOTE | 2021-06-13 17:35 | RAD ---
EXAM: XR CHEST 2V 06/13/2021 12:53 PM CLINICAL INDICATION: COPD COMPARISON: Chest radiograph 03/21/2021 TECHNIQUE: PA and lateral views of the chest FINDINGS: The dual-lead pacemaker. Cardiomegaly is unchanged. Lungs are expanded. There are streaky opacities in the left lung base, likely scarring or atelectasis. No consolidation, pleural effusion, or pneumothorax. Mild degenerative disc disease in the mid and lower thoracic spine. IMPRESSION: Unchanged cardiomegaly and findings of COPD. Electronically signed by: Deepti Rose MD (06/13/2021 5:33 PM) [id number]
--- NOTE | 2021-06-14 12:14 | RESP ---
DATE OF SERVICE: 06/13/2021 PULMONARY FUNCTION TEST The patient's FVC was 3.1, which is 61% predicted, FEV1 1.37, which is 37% predicted. FEV1/FVC ratio was severely reduced. There was 9% improvement in FVC and 14% improvement in FEV1 postbronchodilator. Lung volumes were not performed. Diffusion capacity was 87% predicted. IMPRESSION: 1. Severe obstructive airway disease. The patient's FEV1 is only 1.37. 2. No significant response to bronchodilators. 3. Normal diffusion capacity. 4. Lung volumes were not performed. JENNIFER DR: Carloz TID: [id number]
--- NOTE | 2021-06-14 12:46 | RESP ---
DATE OF SERVICE: 06/13/2021 SIX-MINUTE WALK The patient's resting saturations were 92%. The patient was ambulated. The patient dropped saturations to 85% at 2 minutes. Oxygen was applied and titrated up to 4 liters to keep saturations above 90%. The patient then rested at 2 liters. IMPRESSION: Exercise-induced hypoxemia. RECOMMENDATIONS: Two liters of oxygen at rest and 4 liters with exercise. JENNIFER DR: Carloz TID: [id number]
== END ==
LOC: PF 10:51
PROVIDERS: ATTEND Internal Medicine Critical Care Medicine
DX: I51.7 Cardiomegaly (principal); J44.9 Chronic obstructive pulmonary disease, unspecified; R09.02 Hypoxemia; M47.814 Spondylosis without myelopathy or radiculopathy, thoracic region; Z95.0 Presence of cardiac pacemaker
CPT/HCPCS: 71046; 94060; 94618; 94640; 94729; 94664

== ENCOUNTER → 2021-10-09 | Outpatient (CLI) | payer MEDICARE, OTHER ==
[2021-03-22 11:00] VITALS: BP 131/71
[~2021-10-09] MED LIST changes: +ACLI400A2 IH; -ACLI400A3 IH; +MAGN500C PO; -MAGN500C10 PO
--- NOTE | 2021-10-09 16:39 | RAD ---
EXAMINATION: XR CHEST 2V CLINICAL HISTORY: DYSPNEA. SHORTNESS OF BREATH. EXAM DATE/TIME: 10/09/2021 11:37 AM COMPARISON: 06/13/2021 FINDINGS: Lines, Tubes, and Devices: Left-sided dual-chamber cardiac pacemaker. Cardiomediastinal Silhouette: Normal heart size. Aortic atherosclerotic calcification. Lungs and Pleura: Bibasilar subsegmental atelectasis and/or scarring with possible small left pleural effusion. Nonspecific diffuse interstitial prominence, similar to slightly increased in the lower jose ng zones. Bones and Soft Tissues: Degenerative changes in the thoracic spine. IMPRESSION: Findings suspicious for mild volume overload and/or atypical infection, correlate clinically. Electronically signed by: Young Varner DO (10/09/2021 4:37 PM) [id number]
== END ==
LOC: RAD 11:26
PROVIDERS: ATTEND Internal Medicine Critical Care Medicine
DX: I70.0 Atherosclerosis of aorta (principal); M47.814 Spondylosis without myelopathy or radiculopathy, thoracic region; R06.02 Shortness of breath; R06.00 Dyspnea, unspecified; Z95.0 Presence of cardiac pacemaker
CPT/HCPCS: 71046